=== PATIENT | female | born 1970 | race Caucasian/White ===

== ENCOUNTER → 2017-06-13 10:21 | Outpatient (CLI) | payer OTHER, SELFPAY ==
[2017-06-13 14:33] LABS: Basophils # 0.1 K/mm3 (0-0.2); Basophils % 1.3 % (0.1-2.0); Eosinophils # 0.2 K/mm3 (0.0-0.4); Eosinophils % 3.8 % (0.1-12.0); Hematocrit 43.3 % (37.0-47.0); Hemoglobin 14.1 g/dL (12.2-16.2); Lymphocytes # 1.5 K/mm3 (0.7-4.5); Lymphocytes % 35.4 K/mm3 (10-50); Mean Corpuscular HGB Conc 32.7 g/dL (31.8-35.4); Mean Corpuscular Hemoglobin 30.6 pg (27.0-31.2); Mean Corpuscular Volume 93.8 fl (81-99); Mean Platelet Volume 9.6 fl (7.4-10.4); Monocytes # 0.2 K/mm3 (0.1-1.0); Monocytes % 5.6 % (1.7-9.3); Neutrophils # 2.3 K/mm3 (1.8-7.8); Neutrophils % 53.8 % (37.0-80.0); Platelet Count 250 K/mm3 (142-424); Red Blood Count 4.62 M/mm3 (4.20-5.40); White Blood Count 4.3 K/mm3 (4.8-10.8)
[2017-06-13 14:52] LABS: Alanine Aminotransferase 31 U/L (12-78); Albumin Level 3.3 gm/dL (3.4-5.0); Albumin/Globulin Ratio 0.9 (1.1-1.8); Alkaline Phosphatase 56 U/L (46-116); Anion Gap 11.2 mEq/L (5-15); Aspartate Amino Transferase 21 U/L (15-37); Bilirubin,Total 0.2 mg/dL (0.2-1.0); Blood Urea Nitrogen 16 mg/dL (7-18); Calcium 8.6 mg/dL (8.5-10.1); Carbon Dioxide 29 mmol/L (21.0-32.0); Chloride 104 mmol/L (98-107); Chol/HDL Ratio 2.6 (1-3.5); Cholesterol 198 mg/dL (140-200); Creatinine,Serum 0.72 mg/dL (0.55-1.02); Estimated Glomerular Filt Rate 87 ml/min (>60); GFR (African American) 106 ML/MIN (>60); Globulin 3.6 gm/dl (1.3-3.2); Glucose 116 mg/dL (74-106); HDL Cholesterol 77 mg/dL (29-89); LDL Cholesterol 93 mg/dL (0-130); Potassium 4.2 mmoL/L (3.5-5.1); Sodium 140 mmol/L (136-145); Thyroid Stimulating Hormone 0.84 uIU/ml (0.358-3.740); Total Protein,Serum 6.9 gm/dL (6.4-8.2); Triglycerides 141 mg/dL (30-200); VLDL Cholesterol 28 mg/dL (0-40)
[2017-06-13 16:56] LABS: Hemoglobin A1C 5.1 % (0.0-7.0)
[2017-06-14 18:32] LABS: Vitamin D 25 Hydroxy 39.8 ng/mL (30.0-100.0)
== END ==
PROVIDERS: Visit Provider Nurse Practitioner Family
DX: R53.83 Other fatigue (principal); Z79.899 Other long term (current) drug therapy
CPT/HCPCS: 80053; 80061; 82652; 83036; 84439; 84443; 85025

== ENCOUNTER → 2017-06-27 17:14 | Outpatient (CLI) | payer OTHER, SELFPAY ==
--- NOTE | 2017-06-27 17:16 | XR_ITS ---
XR hip LT 2-3V w/pelvis HISTORY: ITS.REASON: left hip pain ORDERING PHYSICIAN: Angélica Grady PATIENT AGE: 46 years COMPARISON: None FINDINGS: No fracture or dislocation is evident. No significant degenerative change. No lytic or blastic change. Unremarkable soft tissues. A clip is present in the left iliac fossa region a rounded sclerotic focus overlies the left aspect of the sacrum and may be due to bone island IMPRESSION: Negative left hip
== END ==
PROVIDERS: PCP Emergency Medicine; Visit Provider Nurse Practitioner Family
DX: M25.552 Pain in left hip (principal)
CPT/HCPCS: 73502

== ENCOUNTER 2017-08-28 16:00 | Outpatient (RCR) | payer OTHER, SELFPAY | END 2017-08-28 16:01 | disposition home or self-care (01) | LOC: PT 16:00 | PROVIDERS: Family Provider Emergency Medicine; PCP Emergency Medicine; Visit Provider Orthopaedic Surgery | DX: M70.62 Trochanteric bursitis, left hip | CPT/HCPCS: 97010; 97012; 97014; 97033; 97035; 97110; 97163; G0283 ==

== ENCOUNTER → 2017-11-11 07:27 | Outpatient (CLI) | payer OTHER, SELFPAY ==
[2017-11-11 08:16] LABS: Hemoglobin A1C 5.7 % (0.0-7.0)
== END ==
PROVIDERS: Visit Provider Nurse Practitioner Family
DX: R60.9 Edema, unspecified (principal); R53.83 Other fatigue
CPT/HCPCS: 36415; 83036; 83880

== ENCOUNTER → 2017-11-17 13:11 | Outpatient (CLI) | payer OTHER, SELFPAY ==
[2017-11-17 15:38] LABS: Anion Gap 12.3 mEq/L (5-15); Blood Urea Nitrogen 19 mg/dL (7-18); Calcium 8.2 mg/dL (8.5-10.1); Carbon Dioxide 26 mmol/L (21.0-32.0); Chloride 106 mmol/L (98-107); Creatinine,Serum 1.01 mg/dL (0.55-1.02); Estimated Glomerular Filt Rate 59 ml/min (>60); GFR (African American) 71 ML/MIN (>60); Glucose 128 mg/dL (74-106); Potassium 4.3 mmoL/L (3.5-5.1); Sodium 140 mmol/L (136-145)
== END ==
PROVIDERS: Visit Provider Urology
DX: R06.09 Other forms of dyspnea (principal); R60.1 Generalized edema; I10 Essential (primary) hypertension
CPT/HCPCS: 36415; 80048; 83880

== ENCOUNTER → 2017-11-19 13:39 | Outpatient (CLI) | payer OTHER, SELFPAY ==
--- NOTE | 2017-11-19 13:40 | CA_ITS ---
PROCEDURE: 2-D M-mode and color Doppler study INDICATIONS FOR THE TEST: Chest painX COPD Heart Murmur Tobacco Smoking Palpitations FatigueX Syncope Edema HypertensionXDiabetes Mellitus Rheumatic Fever SOB DOEXObesityXHyperlipidemia Family History HD Additional History PATIENT INFORMATION HEIGHT:59 WEIGHT:187 GENDER: Female B/P:142/87 2-D/M-MODE INTERPRETATION: 2-D MEASUREMENTS OBSERVED VALUES IN CMS Right Ventricular Dimension (RVDd) 2.5 Interventricular Septum (Thickness)(IVsd) .8 Left Ventricular Internal Dimensions(LVIDd) 4.5 Left Ventricular Posterior Wall (Thickness)(LVPWd) .8 Aortic Root 2.7 Aortic Cusp Separation 1.5 Left Atrial Dimensions (LAD) 3.2 2D 1. Left atrium is normal size, left ventricle is normal size, there is mild qualitative concentric left ventricular hypertrophy, visually estimated ejection fraction of 55% with no obvious regional wall motion abnormality. 2. The right atrium and right ventricle are normal size and contractility. 3. The aortic valve is minimally thickened and fibrosed. 4. The mitral and tricuspid valvular grossly normal. 5. The pulmonic valve is poorly visualized. 6. No significant pericardial effusion noted. DOPPLER INTERROGATION: Doppler interrogation of the aortic, mitral and tricuspid valvular presence of mild mitral and tricuspid regurgitation, tricuspid regurgitant jet velocity is insufficient for calculation of the right ventricular systolic pressure, grade 1 diastolic dysfunction seen with tissue Doppler evidence of raised left atrial pressure. CONCLUSION: 1. Normal left ventricular size, mild concentric left ventricular hypertrophy, visually estimated ejection fraction 55% with no obvious regional wall motion abnormality, grade 1 diastolic dysfunction seen with tissue Doppler evidence of raised left atrial pressure. 2. Mild mitral and tricuspid regurgitation 3. No significant pericardial effusion noted.
== END ==
PROVIDERS: Family Provider Emergency Medicine; PCP Emergency Medicine; Visit Provider Internal Medicine Cardiovascular Disease
DX: R06.00 Dyspnea, unspecified (principal); R60.9 Edema, unspecified
CPT/HCPCS: 93306

== ENCOUNTER → 2017-12-02 16:49 | Outpatient (CLI) | payer OTHER, SELFPAY | PROVIDERS: PCP Emergency Medicine; Visit Provider Internal Medicine Cardiovascular Disease | DX: R07.9 Chest pain, unspecified (principal); R00.0 Tachycardia, unspecified; R06.00 Dyspnea, unspecified; R06.83 Snoring; R40.0 Somnolence; R60.9 Edema, unspecified | CPT/HCPCS: 95806 ==

== ENCOUNTER → 2017-12-04 07:22 | Outpatient (CLI) | payer OTHER, SELFPAY ==
--- NOTE | 2017-12-04 07:23 | CT_ITS ---
CT heart w calcium score INDICATION: Chest pain and shortness of air ITS.REASON: . ORDERING PHYSICIAN: Ronan Hunt MD PATIENT AGE: 47 years COMPARISON: None TECHNIQUE: Axial images are obtained without contrast. Sagittal and coronal reformatted images are reviewed as well. All CT scans at the facility use one or more dose reduction, viz: automated exposure control, ma/kV adjustment per patient size (including targeted exams where dose is matched to indication, i.e. head), or iterative reconstruction technique. FINDINGS: Coronary artery calcium score 40 indicating mild plaque burden with moderate cardiovascular disease risk . Incidental note made of patchy groundglass density in the left upper lobe centrally and in the superior segment left lower lobe nonspecific. Calcified granuloma is present in the right middle lobe. IMPRESSION: Coronary artery calcium score 4 indicating mild plaque burden with moderate cardiovascular disease risk
--- NOTE | 2017-12-04 07:23 | NM_ITS ---
SPECT MYOCARDIAL PERFUSION SCAN, REST AND STRESS: EXERCISE STRESS: [facility] REVIEW QGS EF AND WALL MOTION EVALUATION: QPS - PERFUSION EVALUATION: HISTORY: Chest pain PROCEDURE: Rest imaging performed after administration of10.11 millicuries Tc MIBI. Dose administered at7:35 a.m., with imaging thereafter. Stress imaging was then performed following6 minutes of exercise stress. The patient achieved a heart [id number] with projected heart rate of147 . Resting BP145/73 with stress 195/70. At maximum exercise stress,32.9 millicuries Tc MIBI administered at8:45 a.m. with [id number] minutes thereafter. FINDINGS: Perfusion Evaluation: The single slice spect images as well as the [facility] bull's-eye data summary were reviewed. Wall Motion and Ejection Fraction Evaluation: Gated SPECT review and analysis used to evaluate these features. There is a 71 % left ventricular ejection fraction. There seems to be good wall motion Patient exercised 6 minutes and experienced [address] segment depression. Stress images reveal decreased activity throughout the anterior wall with slight improvement with stress. Gated images calculated ejection fraction of 71% with normal wall motion IMPRESSION: Abnormal high risk Myoview with anterior defect suggesting some possible degree of breast attenuation mixed with ischemia. Hyperdynamic ejection fraction with hyperdynamic wall motion. Clinical correlation advised
--- NOTE | 2017-12-04 09:39 | HMH.ITSHM ---
premarin furosemide bupropion losartan spironalactone
== END ==
PROVIDERS: Family Provider Emergency Medicine; PCP Emergency Medicine; Visit Provider Internal Medicine Cardiovascular Disease
DX: R06.00 Dyspnea, unspecified (principal); I10 Essential (primary) hypertension; I51.9 Heart disease, unspecified; R00.0 Tachycardia, unspecified; R07.9 Chest pain, unspecified; R60.9 Edema, unspecified
CPT/HCPCS: 75571; 78452; 93017; A9502

== ENCOUNTER → 2017-12-09 07:58 | Outpatient (CLI) | payer OTHER, SELFPAY ==
[2017-12-09 08:52] LABS: Anion Gap 12.7 mEq/L (5-15); Blood Urea Nitrogen 21 mg/dL (7-18); Calcium 8.5 mg/dL (8.5-10.1); Carbon Dioxide 26 mmol/L (21.0-32.0); Chloride 109 mmol/L (98-107); Creatinine,Serum 0.99 mg/dL (0.55-1.02); Estimated Glomerular Filt Rate 60 ml/min (>60); GFR (African American) 73 ML/MIN (>60); Glucose 100 mg/dL (74-106); Potassium 4.7 mmoL/L (3.5-5.1); Sodium 143 mmol/L (136-145)
== END ==
PROVIDERS: Family Provider Emergency Medicine; PCP Emergency Medicine; Visit Provider Internal Medicine Cardiovascular Disease
DX: I10 Essential (primary) hypertension (principal); I51.9 Heart disease, unspecified; R00.0 Tachycardia, unspecified; R06.00 Dyspnea, unspecified; R07.9 Chest pain, unspecified; R60.9 Edema, unspecified
CPT/HCPCS: 36415; 80048

== ENCOUNTER → 2017-12-30 09:44 | Outpatient (CLI) | payer OTHER, SELFPAY ==
[2017-12-30 11:23] LABS: Anion Gap 12.4 mEq/L (5-15); Blood Urea Nitrogen 24 mg/dL (7-18); Calcium 8.7 mg/dL (8.5-10.1); Carbon Dioxide 27 mmol/L (21.0-32.0); Chloride 104 mmol/L (98-107); Creatinine,Serum 1.03 mg/dL (0.55-1.02); Estimated Glomerular Filt Rate 57 ml/min (>60); GFR (African American) 69 ML/MIN (>60); Glucose 103 mg/dL (74-106); Potassium 4.4 mmoL/L (3.5-5.1); Sodium 139 mmol/L (136-145)
== END ==
PROVIDERS: Family Provider Emergency Medicine; PCP Emergency Medicine; Visit Provider Internal Medicine Cardiovascular Disease
DX: I10 Essential (primary) hypertension (principal); I11.9 Hypertensive heart disease without heart failure; I51.9 Heart disease, unspecified
CPT/HCPCS: 36415; 80048

== ENCOUNTER → 2018-01-12 14:28 | Outpatient (CLI) | payer OTHER, SELFPAY ==
--- NOTE | 2018-01-12 14:35 | XR_ITS ---
XR foot wt bearing RT 3V HISTORY: Bilateral foot pain ITS.REASON: Pain ORDERING PHYSICIAN: Yana Barbosa DPM PATIENT AGE: 47 years COMPARISON: None FINDINGS: No fracture or dislocation. No lytic or blastic change. There is normal mineralization.. The joint spaces are well-preserved. No significant degenerative/arthritic changes. No erosive changes evident. There is a small calcaneal spur at 6 mm. No bony erosive changes evident at this area There is normal alignment. There is flexion deformity of the second toe. IMPRESSION: 1. No acute finding. 2. Flexion deformity second toe 3. Small calcaneal spur without erosive change
--- NOTE | 2018-01-12 14:35 | XR_ITS ---
XR foot wt bearing LT 3V HISTORY: Bilateral foot pain ITS.REASON: Pain ORDERING PHYSICIAN: Yana Barbosa DPM PATIENT AGE: 47 years COMPARISON: None FINDINGS: No fracture or dislocation. No lytic or blastic change. There is normal mineralization.. The joint spaces are well-preserved. No significant degenerative/arthritic changes. No erosive changes evident. There is a small calcaneal spur. The spurs somewhat angled superiorly with a lucency at its base without evidence of erosive change. IMPRESSION: Small calcaneal spur with lucency at its base which could be due to an old fracture with a spur somewhat angled cephalad
== END ==
PROVIDERS: Family Provider Emergency Medicine; PCP Emergency Medicine; Visit Provider Podiatrist
DX: M79.671 Pain in right foot (principal); M79.672 Pain in left foot
CPT/HCPCS: 73630

== ENCOUNTER → 2018-01-23 09:43 | Outpatient (CLI) | payer OTHER, SELFPAY ==
--- NOTE | 2018-01-23 09:47 | MM_ITS ---
MM Dig screening mamm BI w/CAD ORDERING PHYSICIAN : Arben Rao MD PATIENT AGE: 47 years GENDER: Female COMPARISON: . October [id number], 2014, December 2013, 2012 INDICATION: ITS.REASON: screening. Patient takes Premarin. No new complaints Previous percutaneous needle biopsy left breast Family history. Maternal aunt with breast cancer age 50 TECHNIQUE: Standard CC and MLO images were obtained. R2 CAD reviewed. FINDINGS: Fairly low-density breast bilaterally with no suspicious areas. No dominant mass nor suspicious calcifications. CAD computer review highlights no areas of concern either. RIGHT BREAST: . No significant new findings. LEFT BREAST:No new findings of significant concern Small metallic clip at the deep left breast from previous percutaneous.Biopsy.-Small stable area of density adjacent to this clip at the central left breast unchanged since 2013 . Today's cc view does not include as much of the deep breast as previous studies but the available left cc view is unremarkable. With MLO view unchanged IMPRESSION: ----- Stable bilateral mammogram No significant new findings. . Bilateral follow-up in one year recommended BI-RADS Category: 2 Benign Finding(s) RECOMMENDED FOLLOW-UP: 1YR 1 YEAR FOLLOW-UP (A letter has been sent to the patient regarding results of the study.)
== END ==
PROVIDERS: PCP Emergency Medicine; Visit Provider Emergency Medicine
DX: Z12.31 Encounter for screening mammogram for malignant neoplasm of breast (principal)
CPT/HCPCS: 77067

== ENCOUNTER → 2018-02-09 19:55 | Outpatient (CLI) | payer OTHER, SELFPAY | PROVIDERS: PCP Emergency Medicine; Visit Provider Nurse Practitioner Family | DX: G47.33 Obstructive sleep apnea (adult) (pediatric) (principal) | CPT/HCPCS: 95811 ==

== ENCOUNTER → 2018-06-19 09:12 | Outpatient (CLI) | payer OTHER, SELFPAY ==
--- NOTE | 2018-06-19 09:16 | CA_ITS ---
PROCEDURE: 2-D M-mode and color Doppler study INDICATIONS FOR THE TEST: Chest pain+ COPD Heart Murmur Tobacco Smoking Palpitations Fatigue Syncope Edema+ Hypertension+Diabetes Mellitus Rheumatic Fever SOB+HANSEN Obesity Hyperlipidemia Family History HD Additional History CHF PATIENT INFORMATION HEIGHT: 60 WEIGHT: 181 GENDER: Female B/P: 132/75 2-D/M-MODE INTERPRETATION: 2-D MEASUREMENTS OBSERVED VALUES IN CMS Right Ventricular Dimension (RVDd) 2.0 Interventricular Septum (Thickness)(IVsd) 1.1 Left Ventricular Internal Dimensions(LVIDd) 3.9 Left Ventricular Posterior Wall (Thickness)(LVPWd) 1.0 Aortic Root 2.2 Aortic Cusp Separation 2.0 Left Atrial Dimensions (LAD) 3.3 2D 1. Left atrium is qualitatively mildly enlarged, left ventricle is normal size, left ventricle wall thickness is upper limit of normal, there is preserved left ventricular systolic function, visually estimated ejection fraction of 55-60% with no regional wall motion abnormality. 2. The right atrium and right ventricle are normal size and contractility. 3. The aortic valve is minimally thickened and fibrosed. 4. The mitral and tricuspid valvular grossly normal. 5. The pulmonic valve is poorly present. 6. No significant pericardial effusion noted. DOPPLER INTERROGATION: Doppler interrogation of the aortic, mitral and tricuspid valvular presence of mild mitral and tricuspid regurgitation, calculated right ventricular systolic pressure is 32 mmHg, grade 1 diastolic dysfunction seen with tissue Doppler evidence of raised left atrial pressure, inferior vena cava is not well visualized. CONCLUSION: 1. Mildly enlarged left atrium, normal left ventricular size, visually estimated ejection fraction 55% with no regional wall motion abnormality, grade 1 diastolic dysfunction seen with tissue Doppler evidence of raised left atrial pressure. 2. Mild mitral and tricuspid regurgitation, calculated right ventricular systolic pressure is 32 mmHg, inferior vena cava is not well visualized. 3. No significant pericardial effusion noted.
== END ==
PROVIDERS: PCP Emergency Medicine; Visit Provider Internal Medicine Cardiovascular Disease
DX: I11.9 Hypertensive heart disease without heart failure (principal); I51.89 Other ill-defined heart diseases; R06.00 Dyspnea, unspecified; R06.83 Snoring; R40.0 Somnolence; R60.9 Edema, unspecified
CPT/HCPCS: 93306

== ENCOUNTER → 2018-06-22 11:33 | Outpatient (CLI) | payer OTHER, SELFPAY ==
[2018-06-22 14:53] LABS: Anion Gap 15.2 mEq/L (5-15); Blood Urea Nitrogen 25 mg/dL (7-18); Calcium 9.5 mg/dL (8.5-10.1); Carbon Dioxide 29 mmol/L (21.0-32.0); Chloride 99 mmol/L (98-107); Creatinine,Serum 0.98 mg/dL (0.55-1.02); Estimated Glomerular Filt Rate 61 ml/min (>60); GFR (African American) 74 ML/MIN (>60); Glucose 94 mg/dL (74-106); Potassium 4.2 mmoL/L (3.5-5.1); Sodium 139 mmol/L (136-145)
== END ==
PROVIDERS: Visit Provider Internal Medicine Cardiovascular Disease
DX: I10 Essential (primary) hypertension (principal); I11.9 Hypertensive heart disease without heart failure; R06.00 Dyspnea, unspecified; R06.83 Snoring; R40.0 Somnolence; R60.9 Edema, unspecified
CPT/HCPCS: 36415; 80048

== ENCOUNTER → 2018-07-10 08:51 | Outpatient (CLI) | payer MEDICAID, SELFPAY ==
[2018-07-10 09:19] LABS: Anion Gap 12.5 mEq/L (5-15); Blood Urea Nitrogen 21 mg/dL (7-18); Calcium 8.8 mg/dL (8.5-10.1); Carbon Dioxide 26 mmol/L (21.0-32.0); Chloride 107 mmol/L (98-107); Creatinine,Serum 0.91 mg/dL (0.55-1.02); Estimated Glomerular Filt Rate 66 ml/min (>60); GFR (African American) 80 ML/MIN (>60); Glucose 99 mg/dL (74-106); Potassium 4.5 mmoL/L (3.5-5.1); Sodium 141 mmol/L (136-145)
== END ==
PROVIDERS: Visit Provider Internal Medicine Cardiovascular Disease
DX: R06.02 Shortness of breath (principal); R60.9 Edema, unspecified; I11.9 Hypertensive heart disease without heart failure; I51.89 Other ill-defined heart diseases
CPT/HCPCS: 36415; 80048; 83880

== ENCOUNTER → 2019-04-16 10:19 | Outpatient (CLI) | payer OTHER, SELFPAY ==
[2019-04-16 13:39] LABS: Alanine Aminotransferase 22 U/L (12-78); Albumin Level 3.4 gm/dL (3.4-5.0); Alkaline Phosphatase 73 U/L (46-116); Anion Gap 12.4 mEq/L (5-15); Aspartate Amino Transferase 14 U/L (15-37); Bilirubin,Direct 0.1 mg/dL (0.0-0.2); Bilirubin,Indirect 0.4 mg/dL (0.0-0.9); Bilirubin,Total 0.5 mg/dL (0.2-1.0); Blood Urea Nitrogen 17 mg/dL (7-18); Calcium 9.3 mg/dL (8.5-10.1); Carbon Dioxide 28 mmol/L (21.0-32.0); Chloride 102 mmol/L (98-107); Chol/HDL Ratio 4.1 (1-3.5); Cholesterol 212 mg/dL (140-200); Creatinine,Serum 1.02 mg/dL (0.55-1.02); Estimated Glomerular Filt Rate 58 ml/min (>60); GFR (African American) 70 ML/MIN (>60); Glucose 93 mg/dL (74-106); HDL Cholesterol 52 mg/dL (29-89); LDL Cholesterol 128 mg/dL (0-130); Potassium 4.4 mmoL/L (3.5-5.1); Sodium 138 mmol/L (136-145); Total Protein,Serum 6.8 gm/dL (6.4-8.2); Triglycerides 158 mg/dL (30-200); VLDL Cholesterol 32 mg/dL (0-40)
== END ==
PROVIDERS: Visit Provider Physician Assistant
DX: I10 Essential (primary) hypertension (principal); I11.9 Hypertensive heart disease without heart failure; I51.89 Other ill-defined heart diseases; R06.00 Dyspnea, unspecified
CPT/HCPCS: 36415; 80048; 80061; 80076; 83880

== ENCOUNTER → 2019-12-17 11:20 | Outpatient (CLI) | payer OTHER, SELFPAY ==
[2019-12-17 13:47] LABS: Anion Gap 8.3 mEq/L (5-15); Blood Urea Nitrogen 19 mg/dl (7-17); Calcium 9.5 mg/dl (8.4-10.2); Carbon Dioxide 30 mmol/L (22.0-30.0); Chloride 105 mmol/L (98-107); Estimated Glomerular Filt Rate 67 ml/min (>60); GFR (African American) 81 ML/MIN (>60); Glucose 96 mg/dl (74-100); Potassium 4.3 mmoL/L (3.5-5.1); Sodium 139 mmol/L (136-145)
[2019-12-17 13:53] LABS: NT Pro Brain Natriuretic Pep. 62.4 pg/mL (0-125)
== END ==
PROVIDERS: Visit Provider Internal Medicine Cardiovascular Disease
DX: I10 Essential (primary) hypertension (principal); I11.9 Hypertensive heart disease without heart failure; I51.9 Heart disease, unspecified; R06.00 Dyspnea, unspecified; R60.9 Edema, unspecified
CPT/HCPCS: 36415; 80048; 83880

== ENCOUNTER → 2020-05-23 14:44 | Outpatient (CLI) | payer OTHER, SELFPAY ==
--- NOTE | 2020-05-23 14:45 | MR_ITS ---
PROCEDURE: MR HEAD/BRAIN WO CON CLINICAL INDICATION: memory loss Forgetfulness, headache, and dizziness since COVID [id number] ago. No prior. COMPARISON: No exams were available for comparison TECHNIQUE: Routine multiplanar multi echo sequences are performed without gadolinium enhancement. FINDINGS: No midline shift, mass effect, intracranial hemorrhage, hydrocephalus, or acute infarction is evident. There are few scattered T2 white matter hyperintensities with some increased T2 signal in the periventricular region along the anterior horns and occipital horns of the lateral ventricles. The pituitary, corpus callosum, optic chiasm, and craniocervical junction have an unremarkable appearance. There is degenerative disc disease with bulging disc/disc osteophyte complex at C3-C4 causing some canal stenosis and may be better evaluated with MRI of the cervical spine if clinically warranted. This is seen only on the sagittal images. The cerebellopontine angles, cerebellum, and brainstem have an unremarkable appearance.. No mastoid effusion or sinus air-fluid level. IMPRESSION: 1. No acute intracranial findings. 2. There are few scattered T2 white matter hyperintensities. Differential diagnosis includes ischemic gliotic change from microvascular disease, migraine headache, and demyelinating process. Dictated by: Galileo Mondragon MD 05/25/2020 09:46 Galileo Mondragon MD in [place] 05/25/2020 09:46
== END ==
PROVIDERS: PCP Emergency Medicine; Visit Provider Emergency Medicine
DX: R41.3 Other amnesia (principal)
CPT/HCPCS: 70551

== ENCOUNTER → 2020-06-19 12:18 | Outpatient (CLI) | payer OTHER, SELFPAY ==
[2020-06-19 13:15] VITALS: PULSE 82; PULSE 86
== END ==
PROVIDERS: PCP Emergency Medicine; Visit Provider Internal Medicine Pulmonary Disease
DX: R06.09 Other forms of dyspnea (principal)
CPT/HCPCS: 94060; 94640; 94726; 94729

== ENCOUNTER → 2020-06-22 10:25 | Outpatient (CLI) | payer OTHER, SELFPAY ==
[2020-06-22 10:59] LABS: Basophils # 0.1 K/mm3 (0-0.2); Basophils % 0.8 % (0.1-2.0); Eosinophils # 0.1 K/mm3 (0.0-0.4); Eosinophils % 2.1 % (0.1-12.0); Hematocrit 42.3 % (37.0-47.0); Hemoglobin 14.5 g/dL (12.2-16.2); Lymphocytes # 2.2 K/mm3 (0.7-4.5); Lymphocytes % 38.3 % (10-50); Mean Corpuscular HGB Conc 34.3 g/dL (31.8-35.4); Mean Corpuscular Hemoglobin 32.3 pg (27.0-31.2); Mean Corpuscular Volume 94.1 fl (81-99); Mean Platelet Volume 9.2 fl (7.4-10.4); Monocytes # 0.3 K/mm3 (0.1-1.0); Monocytes % 4.6 % (1.7-9.3); Neutrophils # 3.1 K/mm3 (1.8-7.8); Neutrophils % 54.3 % (37.0-80.0); Platelet Count 243 K/mm3 (142-424); Red Cell Distribution Width 13.2 % (11.5-17.5); White Blood Count 5.7 K/mm3 (4.8-10.8)
[2020-06-22 11:24] LABS: Erythrocyte Sedimentation Rate 22 mm/hr (0-20)
[2020-06-22 12:29] LABS: Vitamin B12 267 pg/mL (239-931)
[2020-06-22 12:39] LABS: Folate 7.67 ng/mL
[2020-06-24 12:14] LABS: Antinuclear Antibodies (ANA) NEGATIVE
== END ==
PROVIDERS: Visit Provider Nurse Practitioner Family
DX: R41.3 Other amnesia (principal)
CPT/HCPCS: 36415; 82607; 82746; 85025; 85651; 86038

== ENCOUNTER → 2021-01-25 09:59 | Outpatient (CLI) | payer OTHER, SELFPAY ==
[2021-01-25 10:19] LABS: Basophils # 0.1 K/mm3 (0-0.2); Basophils % 1.7 % (0.1-2.0); Eosinophils # 0.1 K/mm3 (0.0-0.4); Eosinophils % 2.1 % (0.1-12.0); Hematocrit 42.4 % (37.0-47.0); Hemoglobin 14.5 g/dL (12.2-16.2); Lymphocytes # 2.2 K/mm3 (0.7-4.5); Lymphocytes % 36.2 % (10-50); Mean Corpuscular HGB Conc 34.1 g/dL (31.8-35.4); Mean Corpuscular Hemoglobin 32.9 pg (27.0-31.2); Mean Corpuscular Volume 96.3 fl (81-99); Mean Platelet Volume 9.3 fl (7.4-10.4); Monocytes # 0.3 K/mm3 (0.1-1.0); Monocytes % 5.8 % (1.7-9.3); Neutrophils # 3.2 K/mm3 (1.8-7.8); Neutrophils % 54.3 % (37.0-80.0); Platelet Count 295 K/mm3 (142-424); Red Cell Distribution Width 13.1 % (11.5-17.5)
[2021-01-25 12:11] LABS: Vitamin B12 295 pg/mL (239-931)
[2021-01-26 08:17] LABS: Homocyst(e)ine 14.5 umol/L (0.0-14.5)
[2021-01-29 08:09] LABS: D001-IgE D pteronyssinus <0.10 kU/L (Class 0); D002-IgE D farinae <0.10 kU/L (Class 0); E001-IgE Cat Dander <0.10 kU/L (Class 0); E005-IgE Dog Dander <0.10 kU/L (Class 0); E072-IgE Mouse Urine <0.10 kU/L (Class 0); G002-IgE Bermuda Grass <0.10 kU/L (Class 0); G006-IgE Timothy Grass <0.10 kU/L (Class 0); I006-IgE Cockroach, German <0.10 kU/L (Class 0); Immunoglobulin E, Total 30 IU/mL (6-495); M001-IgE Penicillium chrysogen <0.10 kU/L (Class 0); M002-IgE Cladosporium herbarum <0.10 kU/L (Class 0); M003-IgE Aspergillus fumigatus <0.10 kU/L (Class 0); M006-IgE Alternaria alternata <0.10 kU/L (Class 0); T001-IgE Maple/Box Elder <0.10 kU/L (Class 0); T003-IgE Common Silver Birch <0.10 kU/L (Class 0); T006-IgE Cedar, Mountain <0.10 kU/L (Class 0); T007-IgE Oak, White <0.10 kU/L (Class 0); T008-IgE Elm, American <0.10 kU/L (Class 0); T010-IgE Walnut <0.10 kU/L (Class 0); T011-IgE Maple Leaf Sycamore <0.10 kU/L (Class 0); T014-IgE Cottonwood <0.10 kU/L (Class 0); T015-IgE Ash, White <0.10 kU/L (Class 0); T022-IgE Pecan, Hickory <0.10 kU/L (Class 0); T070-IgE White Mulberry <0.10 kU/L (Class 0); W001-IgE Ragweed, Short 0.83 kU/L (Class II); W011-IgE Thistle, Russian <0.10 kU/L (Class 0); W014-IgE Pigweed, Common <0.10 kU/L (Class 0); W018-IgE Sheep Sorrel <0.10 kU/L (Class 0)
[2021-01-30 05:43] LABS: Methylmalonic Acid 139 nmol/L (0-378)
== END ==
PROVIDERS: Internal Medicine Pulmonary Disease; PCP Nurse Practitioner Family; Visit Provider Nurse Practitioner Family
DX: G93.40 Encephalopathy, unspecified (principal); R41.3 Other amnesia; R41.9 Unspecified symptoms and signs involving cognitive functions and awareness; J45.909 Unspecified asthma, uncomplicated
CPT/HCPCS: 82131; 82607; 82785; 83090; 85025; 86003

== ENCOUNTER → 2021-02-19 12:56 | Outpatient (CLI) | payer OTHER, SELFPAY | PROVIDERS: PCP Emergency Medicine; Visit Provider Nurse Practitioner Family | DX: R41.3 Other amnesia (principal); R41.9 Unspecified symptoms and signs involving cognitive functions and awareness; G93.40 Encephalopathy, unspecified | CPT/HCPCS: 94762; 95816 ==

== ENCOUNTER 2021-05-13 12:12 | Emergency (ER) | payer OTHER, SELFPAY ==
--- NOTE | 2021-05-13 13:50 | HMH.EDUTC ---
[facility] [place] Disposition Clinical Impression: Exposure to COVID-19 virus, Viral syndrome Sinusitis Qualifiers: Sinusitis location: unspecified location Chronicity: acute Recurrence: non-recurrent Qualified Code(s): J01.90 - Acute sinusitis, unspecified Acute bronchitis Qualifiers: Bronchitis organism: unspecified organism Qualified Code(s): J20.9 - Acute bronchitis, unspecified Disposition: Home, Self-Care Condition on Discharge: Good Instructions: DI for Sinusitis Additional Instructions: Drink plenty of fluids. Take tylenol or ibuprofen for pain or fever. Take the medications as directed. Follow up with your regular doctor. GO TO THE ER FOR ANY WORSENING SYMPTOMS Quarantine until you know the results of your covid-19 test. Notify your school or workplace of your results and follow their instructions regarding return to work/school. Prescriptions: Benzonatate [Benzonatate 100mg cap] 100 mg PO TIDP PRN #30 cap PRN Reason: Cough Transmission Status: Received by [id number] methylPREDNISolone [Medrol] 4 mg PO DIRECTED 6 Days #21 packet Transmission Status: Received by [id number] RX: Azithromycin [Z-Tesfaye 250mg Tab*] 250 mg PO UD DOSE PK #6 tab Transmission Status: Received by [id number] Referrals: Arben Rao MD [Primary Care Provider] - Time of Disposition: 14:04 Medical Decision Making - Medical Records Medical records reviewed: No: I reviewed the patient's medical records. - Alex Inquiry Pt receiving controlled substance: No Vital Signs: 05/13/21 13:53 Temperature 98.6 F Temperature Source Oral Pulse Rate [Left] 78 Respiratory Rate 18 Blood Pressure [Right Arm] 124/76 Blood Pressure Mean [Right Arm] 92 02 Sat by Pulse Oximetry 96 - Lab Data Lab results reviewed: Yes: I reviewed the patient's lab results. Orders (Tests/Meds): ORDERS Category Date Time Status Covid-19 Nasal PCR ([facility]) Routine Lab 05/13/21 13:58 Ordered [facility] [place] HPI - General Stated complaint: possible sinus infection Time Seen by Provider: 05/13/21 13:50 - History of Present Illness Provider Complaint: She states that she for the past 2 days she has been having sinus congestion, low grade fever, chills, cough, and chest congestion. - Related Data Home Medications Medication Instructions Recorded Confirmed cetirizine 10 mg tablet 10 mg PO DAILY tab 04/16/19 04/23/21 estradiol 1 mg tablet 1 mg PO DAILY tab 12/08/19 04/23/21 aripiprazole 10 mg tablet 10 mg PO DAILY 04/03/21 04/23/21 methylcellulose (with sugar) oral 1 tbsp PO DAILY 04/03/21 04/23/21 powder metoclopramide HCl 10 mg 10 mg PO Q6H 04/03/21 04/23/21 disintegrating tablet omeprazole 40 mg capsule,delayed 40 mg PO BID 04/03/21 04/23/21 release polyethylene glycol 3350 17 17 g PO DAILY 04/03/21 04/23/21 gram/dose oral powder Previous Rx's Medication Instructions Recorded aspirin 81 mg tablet,delayed See Rx Instructions .ROUTE 06/26/20 release .COMPLEX #90 tab spironolactone 100 mg tablet See Rx Instructions .ROUTE 02/28/21 .COMPLEX #90 tab bumetanide 2 mg tablet See Rx Instructions .ROUTE 03/01/21 .COMPLEX #60 tab albuterol sulfate 90 mcg/actuation 1 puff INHALATION Q4-6H PRN 90 04/03/21 aerosol inhaler Days #8.5 g budesonide-formoterol HFA 160 2 puff INHALATION BID 90 Days 04/03/21 mcg-4.5 mcg/actuation aerosol #10.2 g inhaler ipratropium 0.5 mg-albuterol 3 mg 3 ml INHALATION QID PRN 90 Days 04/03/21 (2.5 mg base)/3 mL nebulization #270 ml soln bisoprolol fumarate 5 mg tablet See Rx Instructions .ROUTE 04/04/21 .COMPLEX #30 tab phentermine 37.5 mg capsule 37.5 mg PO DAILY #30 cap 04/23/21 Azithromycin [Z-Tesfaye 250mg Tab*] 250 mg PO UD DOSE PK #6 tab 05/13/21 Benzonatate [Benzonatate 100mg 100 mg PO TIDP PRN #30 cap 05/13/21 cap] methylPREDNISolone [Medrol] 4 mg PO DIRECTED 6 Days #21 05/13/21 packet Allergies Allergy/AdvReac Type Se
[2021-05-13 13:53] VITALS: BP 124/76; PULSE 78; RESP 18; TEMP 37; O2SAT 96; BMI 36.7
[2021-05-13 14:25] VITALS: BP 124/76; PULSE 78; RESP 18; TEMP 37
== END 2021-05-13 14:28 | disposition home or self-care (01) ==
PROVIDERS: Emergency Provider Nurse Practitioner Family; PCP Emergency Medicine
DX: J01.00 Acute maxillary sinusitis, unspecified (principal); Z20.822 Contact with and (suspected) exposure to COVID-19; J20.9 Acute bronchitis, unspecified; K21.9 Gastro-esophageal reflux disease without esophagitis; I10 Essential (primary) hypertension; J45.909 Unspecified asthma, uncomplicated
CPT/HCPCS: 99202; C9803; G0463; U0003; U0005

== ENCOUNTER → 2021-07-31 14:42 | Outpatient (CLI) | payer OTHER, SELFPAY ==
--- NOTE | 2021-07-31 14:45 | MR_ITS ---
FINAL REPORT CLINICAL HISTORY: Back Pain continued LOWER BACK PAIN SINCE FALL X YEARS AGO BILATERAL NUMBNESS POSTERIOR ASPECT OF LEGS FINDINGS: Multiplanar MR imaging of the lumbar spine was performed without contrast. On the sagittal T2-weighted images, disc degeneration is seen at multiple levels. The vertebral alignment is normal. There is no evidence of fracture. No bony mass is identified. The conus has an unremarkable appearance. No significant canal stenosis is identified. L1-2: There is no significant canal stenosis or neural foraminal narrowing. L2-3: There is no significant canal stenosis or neural foraminal narrowing. L3-4: An annular bulge is present. There is no significant canal stenosis or neural foraminal narrowing. L4-5: An annular bulge is present. There is moderate bilateral neural foraminal narrowing. L5-S1: There is a right posterolateral disc protrusion. There is moderate right neural foraminal narrowing. IMPRESSION: Multilevel degenerative disc disease with areas of neural foraminal narrowing as described. Right posterolateral disc protrusion at L5-S1 without significant central canal stenosis. Reviewed, Interpreted and Dictated by Maverick Barnes III, MD Transcribed by Manjinder Peralta Authenticated by Maverick Barnes III, MD on 07/31/2021 04:47:18 PM [facility]
== END ==
PROVIDERS: PCP Emergency Medicine; Visit Provider Emergency Medicine
DX: M54.5 Low back pain (principal); S70.00XA Contusion of unspecified hip, initial encounter
CPT/HCPCS: 72148; 76376

== ENCOUNTER → 2021-08-09 11:26 | Outpatient (CLI) | payer OTHER, SELFPAY ==
[2021-08-09 13:04] LABS: Basophils # 0.1 K/mm3 (0-0.2); Eosinophils # 0.1 K/mm3 (0.0-0.4); Eosinophils % 1.8 % (0.1-12.0); Hemoglobin 15.2 g/dL (12.2-16.2); Lymphocytes # 1.9 K/mm3 (0.7-4.5); Lymphocytes % 34.3 % (10-50); Mean Corpuscular HGB Conc 33.7 g/dL (31.8-35.4); Mean Corpuscular Hemoglobin 32.3 pg (27.0-31.2); Mean Corpuscular Volume 95.9 fl (81-99); Mean Platelet Volume 9.5 fl (7.4-10.4); Monocytes # 0.3 K/mm3 (0.1-1.0); Monocytes % 5.6 % (1.7-9.3); Neutrophils # 3.1 K/mm3 (1.8-7.8); Neutrophils % 56.3 % (37.0-80.0); Platelet Count 278 K/mm3 (142-424); Red Blood Count 4.69 M/mm3 (4.20-5.40); White Blood Count 5.5 K/mm3 (4.8-10.8)
[2021-08-09 13:31] LABS: Alanine Aminotransferase 19 U/L (12-78); Albumin Level 4.1 g/dl (3.5-5.0); Alkaline Phosphatase 62 U/L (38-126); Anion Gap 11.2 mEq/L (5-15); Aspartate Amino Transferase 24 U/L (14-36); Bilirubin,Indirect 0.2 mg/dL (0.0-0.9); Bilirubin,Total 0.2 mg/dl (0.2-1.3); Bilirubin,Unconjugated 0.5 mg/dL (0.0-1.1); Blood Urea Nitrogen 17 mg/dl (7-17); Calcium 9.4 mg/dl (8.4-10.2); Carbon Dioxide 30 mmol/L (22.0-30.0); Chloride 102 mmol/L (98-107); Chol/HDL Ratio 4.6 (1-3.5); Cholesterol 197 mg/dl (140-200); Estimated Glomerular Filt Rate 66 ml/min (>60); GFR (African American) 80 ML/MIN (>60); Glucose 146 mg/dl (74-100); HDL Cholesterol 43 mg/dl (40-60); Potassium 4.2 mmoL/L (3.5-5.1); Sodium 139 mmol/L (136-145); Total Protein,Serum 6.6 g/dl (6.3-8.2); Triglycerides 158 mg/dl (30-150); VLDL Cholesterol 32 mg/dL (0-40)
[2021-08-09 13:43] LABS: NT Pro Brain Natriuretic Pep. 90.3 pg/mL (0-125)
[2021-08-09 13:47] LABS: Free T4 (Free Thyroxine) 1.12 ng/dl (0.78-2.19)
[2021-08-09 14:05] LABS: Thyroid Stimulating Hormone 0.62 uIU/mL (0.465-4.68)
== END ==
PROVIDERS: PCP Emergency Medicine; Visit Provider Physician Assistant
DX: R06.02 Shortness of breath (principal); I11.9 Hypertensive heart disease without heart failure; R60.9 Edema, unspecified
CPT/HCPCS: 36415; 80048; 80061; 80076; 83880; 84439; 84443; 85025

== ENCOUNTER → 2021-09-10 12:51 | Outpatient (CLI) | payer OTHER, SELFPAY ==
[2021-09-10 14:03] LABS: Hemoglobin A1C 5.3 % (4.0-6.0)
== END ==
PROVIDERS: PCP Emergency Medicine; Visit Provider Emergency Medicine
DX: R73.09 Other abnormal glucose (principal)
CPT/HCPCS: 36415; 83036

== ENCOUNTER 2021-12-03 11:52 | Emergency (ER) | payer OTHER, SELFPAY ==
[2021-12-03 13:15] VITALS: BP 117/73; PULSE 69; RESP 18; TEMP 36.9; O2SAT 99; BMI 36.7
--- NOTE | 2021-12-03 13:24 | EXP.UTC ---
Discharge Plan Disposition Patient Disposition: Home, Self-Care Condition: Good Prescriptions Prescriptions: New azithromycin [Zithromax] 250 mg tablet 250 mg PO UD DOSE PK Qty: 6 0RF Rx Instructions: Take two (2) tablets today, then one (1) tablet days #2 thru #5 benzonatate [benzonatate] 100 mg capsule 100 mg PO TIDP PRN (Reason: Cough) Qty: 30 0RF methylprednisolone 4 mg Tablets,Dose Pack 4 mg PO DIRECTED Qty: 21 0RF moxifloxacin [Vigamox] 0.5 % drops 1 drp ophthalmic (eye) TID 7 Days Qty: 3 0RF No Action cetirizine 10 mg tablet 10 mg PO DAILY estradiol 1 mg tablet 1 mg PO DAILY Label Comments: TAKE 1 TABLET BY MOUTH EVERY DAY prazosin 1 mg capsule 1 mg PO estradiol 0.01 % (0.1 mg/gram) cream 1 g VAGINAL WEEKLY omeprazole 40 mg capsule,delayed release(DR/EC) 40 mg PO BID aripiprazole 10 mg tablet 10 mg PO DAILY metoclopramide HCl 10 mg tablet,disintegrating 10 mg PO Q6H polyethylene glycol 3350 [Miralax] 17 gram/dose powder 17 g PO DAILY Citrucel (sucrose) Powder 1 tbsp PO DAILY ipratropium-albuterol 0.5 mg-3 mg(2.5 mg base)/3 mL solution for nebulization 3 ml INHALATION QID PRN (Reason: shortness of breath or wheezing) 90 Days Qty: 270 3RF trazodone 50 mg tablet 50 mg PO DAILY bumetanide 2 mg tablet 2 mg PO BID Qty: 60 4RF escitalopram oxalate [Lexapro] 10 mg tablet 10 mg PO DAILY Qty: 30 1RF albuterol sulfate 90 mcg/actuation HFA aerosol inhaler 1 puff INHALATION Q4-6H PRN (Reason: Shortness Of Breath Or Wheezing) 90 Days Qty: 8.5 2RF aspirin 81 mg tablet,delayed release (DR/EC) See Rx Instructions .ROUTE .COMPLEX Qty: 90 1RF Dose Instruction: TAKE 1 TABLET BY MOUTH EVERY DAY Rx Instructions: TAKE 1 TABLET BY MOUTH EVERY DAY bisoprolol fumarate 5 mg tablet See Rx Instructions .ROUTE .COMPLEX Qty: 30 5RF Dose Instruction: TAKE ONE TABLET BY MOUTH EVERY DAY FOR hypertension Rx Instructions: TAKE ONE TABLET BY MOUTH EVERY DAY FOR hypertension carsononide-formoterol [Symbicort] 160-4.5 mcg/actuation HFA aerosol inhaler 2 puff INHALATION BID 90 Days Qty: 10.2 2RF clonazepam 0.5 mg tablet 0.5 mg PO BID Qty: 60 1RF spironolactone 100 mg tablet See Rx Instructions .ROUTE .COMPLEX Qty: 90 5RF Dose Instruction: TAKE ONE TABLET BY MOUTH EVERY DAY Rx Instructions: TAKE ONE TABLET BY MOUTH EVERY DAY Referrals Follow up/Referrals: Arben Rao MD [Primary Care Provider] - See instructions Activity Restrictions/Add. Instructions Additional Instructions/Restrictions: Drink plenty of fluids. Take tylenol or ibuprofen for pain or fever. Take the medications as directed. Follow up with your regular doctor. GO TO THE ER FOR ANY WORSENING SYMPTOMS Quarantine until you know the results of your covid-19 test. Notify your school or workplace of your results and follow their instructions regarding return to work/school. Clinical Impressions Clinical Impression: Pharyngitis Conjunctivitis Qualifiers: Conjunctivitis type: acute Acute conjunctivitis type: unspecified Laterality: bilateral Qualified Code(s): H10.33 - Unspecified acute conjunctivitis, bilateral Instructions Patient Instructions: DI for Strep Throat, Preventing the Spread of Coronavirus Discharge Instructions Discharge ED Provider: Kaveh Hawkins [facility] General Stated complaint: sore throat Mode of Arrival: Ambulatory Source of Information: Patient Limitations: No Limitations Time Seen by Provider: 12/03/21 13:23 HEENT Symptoms (Recalled from RN notes): Yes Resp Symptoms (Recalled from RN notes): No Skin Symptoms (Recalled from RN notes): No MS Symptoms (Recalled from RN notes): No Functional Status (Recalled from RN notes): n/a History of Present Illness Provider Complaint: pt comes in with c/o sore throat. symptoms began l
[2021-12-03 13:31] LABS: UTC Strep Screen (Rapid) Negative (Negative)
--- NOTE | 2021-12-03 13:37 | EXP.UTC ---
Discharge Plan Disposition Patient Disposition: Home, Self-Care Condition: Good Prescriptions Prescriptions: New azithromycin [Zithromax] 250 mg tablet 250 mg PO UD DOSE PK Qty: 6 0RF Rx Instructions: Take two (2) tablets today, then one (1) tablet days #2 thru #5 benzonatate [benzonatate] 100 mg capsule 100 mg PO TIDP PRN (Reason: Cough) Qty: 30 0RF methylprednisolone 4 mg Tablets,Dose Pack 4 mg PO DIRECTED Qty: 21 0RF moxifloxacin [Vigamox] 0.5 % drops 1 drp ophthalmic (eye) TID 7 Days Qty: 3 0RF No Action cetirizine 10 mg tablet 10 mg PO DAILY estradiol 1 mg tablet 1 mg PO DAILY Label Comments: TAKE 1 TABLET BY MOUTH EVERY DAY prazosin 1 mg capsule 1 mg PO estradiol 0.01 % (0.1 mg/gram) cream 1 g VAGINAL WEEKLY omeprazole 40 mg capsule,delayed release(DR/EC) 40 mg PO BID aripiprazole 10 mg tablet 10 mg PO DAILY metoclopramide HCl 10 mg tablet,disintegrating 10 mg PO Q6H polyethylene glycol 3350 [Miralax] 17 gram/dose powder 17 g PO DAILY Citrucel (sucrose) Powder 1 tbsp PO DAILY ipratropium-albuterol 0.5 mg-3 mg(2.5 mg base)/3 mL solution for nebulization 3 ml INHALATION QID PRN (Reason: shortness of breath or wheezing) 90 Days Qty: 270 3RF trazodone 50 mg tablet 50 mg PO DAILY bumetanide 2 mg tablet 2 mg PO BID Qty: 60 4RF escitalopram oxalate [Lexapro] 10 mg tablet 10 mg PO DAILY Qty: 30 1RF albuterol sulfate 90 mcg/actuation HFA aerosol inhaler 1 puff INHALATION Q4-6H PRN (Reason: Shortness Of Breath Or Wheezing) 90 Days Qty: 8.5 2RF aspirin 81 mg tablet,delayed release (DR/EC) See Rx Instructions .ROUTE .COMPLEX Qty: 90 1RF Dose Instruction: TAKE 1 TABLET BY MOUTH EVERY DAY Rx Instructions: TAKE 1 TABLET BY MOUTH EVERY DAY bisoprolol fumarate 5 mg tablet See Rx Instructions .ROUTE .COMPLEX Qty: 30 5RF Dose Instruction: TAKE ONE TABLET BY MOUTH EVERY DAY FOR hypertension Rx Instructions: TAKE ONE TABLET BY MOUTH EVERY DAY FOR hypertension carsononide-formoterol [Symbicort] 160-4.5 mcg/actuation HFA aerosol inhaler 2 puff INHALATION BID 90 Days Qty: 10.2 2RF clonazepam 0.5 mg tablet 0.5 mg PO BID Qty: 60 1RF spironolactone 100 mg tablet See Rx Instructions .ROUTE .COMPLEX Qty: 90 5RF Dose Instruction: TAKE ONE TABLET BY MOUTH EVERY DAY Rx Instructions: TAKE ONE TABLET BY MOUTH EVERY DAY Referrals Follow up/Referrals: Arben Rao MD [Primary Care Provider] - See instructions Activity Restrictions/Add. Instructions Additional Instructions/Restrictions: Drink plenty of fluids. Take tylenol or ibuprofen for pain or fever. Take the medications as directed. Follow up with your regular doctor. GO TO THE ER FOR ANY WORSENING SYMPTOMS Quarantine until you know the results of your covid-19 test. Notify your school or workplace of your results and follow their instructions regarding return to work/school. Clinical Impressions Clinical Impression: Pharyngitis Conjunctivitis Qualifiers: Conjunctivitis type: acute Acute conjunctivitis type: unspecified Laterality: bilateral Qualified Code(s): H10.33 - Unspecified acute conjunctivitis, bilateral Discharge ED Provider: Kaveh Hawkins [facility] General Stated complaint: sore throat Mode of Arrival: Ambulatory Source of Information: Patient Limitations: No Limitations Time Seen by Provider: 12/03/21 13:23 Description of Symptoms (Recalled from Triage Doc. by RN): pt comes in with c/o sore throat. symptoms began last night. grandkids have pink eye and pt states that she woke up this am also with dried drainage on eyes. HEENT Symptoms (Recalled from RN notes): Yes Resp Symptoms (Recalled from RN notes): No Skin Symptoms (Recalled from RN notes): No MS Symptoms (Recalled from RN notes): No Functional Status (Recalled from RN notes): n/a R
[2021-12-03 13:43] VITALS: BP 117/73; PULSE 69; RESP 18; TEMP 36.9
[2021-12-03 14:01] LABS: Adenovirus,PCR Not Detected (NotDetected); Bordetella Pertussis Not Detected (NotDetected); Chlamydophila Pneumoniae, PCR Not Detected (NotDetected); Coronavirus 19, PCR Not Detected (NotDetected); Coronavirus 229E Not Detected (NotDetected); Coronavirus NL63 Not Detected (NotDetected); Coronavirus OC43 Not Detected (NotDetected); Coronovirus HKU1,PCR Not Detected (NotDetected); Human Metapneumovirus Not Detected (NotDetected); Influenza A, PCR Not Detected (NotDetected); Influenza AH1, 2009 Not Detected (NotDetected); Influenza AH1, PCR Not Detected (NotDetected); Influenza AH3,PCR Not Detected (NotDetected); Influenza B, PCR Not Detected (NotDetected); Mycoplasma Pneumoniae, PCR Not Detected (NotDetected); Parainfluenza 1, PCR Not Detected (NotDetected); Parainfluenza 2, PCR Not Detected (NotDetected); Parainfluenza 3, PCR Not Detected (NotDetected); Parainfluenza 4, PCR Not Detected (NotDetected); Respiratory Syncytial Virus Not Detected (NotDetected); Rhinovirus/Enterovirus Not Detected (NotDetected)
== END 2021-12-03 13:50 | disposition home or self-care (01) ==
PROVIDERS: Emergency Provider Nurse Practitioner Family; PCP Emergency Medicine
DX: H10.33 Unspecified acute conjunctivitis, bilateral (principal)
CPT/HCPCS: 87581; 87632; 87798; 87880; 99212; C9803; G0463; U0003; U0005

== ENCOUNTER 2022-01-07 11:58 | Emergency (ER) | payer OTHER, SELFPAY ==
[2022-01-07 12:28] VITALS: BP 121/74; PULSE 89; RESP 18; TEMP 36.9; O2SAT 99; BMI 31.8
[2022-01-07 12:33] LABS: UTC Strep Screen (Rapid) Positive (Negative)
--- NOTE | 2022-01-07 13:07 | EXP.UTC ---
Discharge Plan Disposition Patient Disposition: Home, Self-Care Condition: Good Prescriptions Prescriptions: New amoxicillin 875 mg tablet 875 mg PO BID Qty: 20 0RF No Action estradiol 1 mg tablet 1 mg PO DAILY Label Comments: TAKE 1 TABLET BY MOUTH EVERY DAY prazosin 1 mg capsule 1 mg PO DAILY estradiol 0.01 % (0.1 mg/gram) cream 1 g VAGINAL WEEKLY omeprazole 40 mg capsule,delayed release(DR/EC) 40 mg PO BID aripiprazole 10 mg tablet 10 mg PO DAILY polyethylene glycol 3350 [Miralax] 17 gram/dose powder 17 g PO DAILY Citrucel (sucrose) Powder 1 tbsp PO DAILY trazodone 50 mg tablet 50 mg PO DAILY albuterol sulfate 90 mcg/actuation HFA aerosol inhaler 1 puff INHALATION Q4-6H PRN (Reason: Shortness Of Breath Or Wheezing) 90 Days Qty: 8.5 2RF spironolactone 100 mg tablet See Rx Instructions .ROUTE .COMPLEX Rx Instructions: TAKE ONE TABLET BY MOUTH EVERY DAY aspirin 81 mg tablet,delayed release (DR/EC) See Rx Instructions .ROUTE .COMPLEX Rx Instructions: TAKE 1 TABLET BY MOUTH EVERY DAY bisoprolol fumarate 5 mg tablet See Rx Instructions .ROUTE .COMPLEX Rx Instructions: TAKE ONE TABLET BY MOUTH EVERY DAY FOR hypertension escitalopram oxalate [Lexapro] 10 mg tablet 10 mg PO DAILY bumetanide 2 mg tablet 2 mg PO BID clonazepam 0.5 mg tablet 0.5 mg PO BID Referrals Follow up/Referrals: Arben Rao MD [Primary Care Provider] - See instructions Activity Restrictions/Add. Instructions Additional Instructions/Restrictions: *Monitor Temp, Over the counter Motrin or Tylenol as directed/as needed Tylenol every 4 hours and Motrin every 6 hours (as long as your family doctor has told you that you can take it) for fever or pain. and straight to ER if unable to lower temp less than 101.0 after medication given *Warm salt water gargles may help to soothe the throat *Throat Lozenges? *Warm fluids like tea with honey may help to soothe the throat? *Sleep elevated *Humidifier/Vaporizer *If you did not take Penicillin shot or was unable to, start taking antibiotic immediately and make sure that you take it for the FULL length of time although you should start to feel better in 24-48 hours *change toothbrush and toothpaste 24-48 hours after starting to take antibiotics so you do not reinfect yourself Monitor Temp. Tylenol and/or Ibuprofen as needed. ER if fever is no less than 101 despite alternating Tylenol and Ibuprofen * Encourage fluids, water, Gatorade, powerade, pedialyte if /toddler/or child *Cold fluids, popsicles and ice cream may feel good on his throat Follow up IMMEDIATELY for new or worsening symptoms or no Noticeable improvement over the next 48-72 hours. 911 for difficulty breathing or swallowing Clinical Impressions Clinical Impression: Strep throat Instructions Patient Instructions: Strep Throat, DI for Strep Throat Discharge ED Provider: Danelle Rao [facility] [place] General Stated complaint: sore throat Mode of Arrival: Ambulatory Source of Information: Patient Limitations: No Limitations Time Seen by Provider: 01/07/22 13:08 Description of Symptoms (Recalled from Triage Doc. by RN): pt comes in with c/o sore throat. symptoms began this am. HEENT Symptoms (Recalled from RN notes): Yes Resp Symptoms (Recalled from RN notes): No Skin Symptoms (Recalled from RN notes): No MS Symptoms (Recalled from RN notes): No Functional Status (Recalled from RN notes): n/a History of Present Illness Provider Complaint: Patient states that she has been having sore throat since this mornign and it has continued to get worse Related Data Home Medications Medication Instructions Recorded Confirmed estradiol 1 mg tablet 1 mg PO DAILY Supplement 12/08/19 01/07/22 aripiprazole 10 mg tablet 10 mg PO DAILY Depression 04/03/21 01/07/22 methylcellulose (with matos
[2022-01-07 13:15] VITALS: BP 121/74; PULSE 89; RESP 18; TEMP 36.9
== END 2022-01-07 13:20 | disposition home or self-care (01) ==
PROVIDERS: Emergency Provider Nurse Practitioner; PCP Emergency Medicine
DX: J02.0 Streptococcal pharyngitis (principal); B95.0 Streptococcus, group A, as the cause of diseases classified elsewhere; R06.02 Shortness of breath; R07.9 Chest pain, unspecified; R00.0 Tachycardia, unspecified; I11.0 Hypertensive heart disease with heart failure; I50.31 Acute diastolic (congestive) heart failure; F32.A Depression, unspecified; Z79.51 Long term (current) use of inhaled steroids; Z79.82 Long term (current) use of aspirin; Z79.899 Other long term (current) drug therapy; Z79.890 Hormone replacement therapy
CPT/HCPCS: 87880; 99213; G0463

== ENCOUNTER 2022-01-24 16:38 | Emergency (ER) | payer OTHER, SELFPAY ==
--- NOTE | 2022-01-24 16:50 | EXP.UTC ---
Discharge Plan Disposition Patient Disposition: Home, Self-Care Condition: Good Prescriptions Prescriptions: No Action estradiol 1 mg tablet 1 mg PO DAILY Label Comments: TAKE 1 TABLET BY MOUTH EVERY DAY prazosin 1 mg capsule 1 mg PO DAILY omeprazole 40 mg capsule,delayed release(DR/EC) 40 mg PO BID polyethylene glycol 3350 [Miralax] 17 gram/dose powder 17 g PO DAILY Citrucel (sucrose) Powder 1 tbsp PO DAILY trazodone 50 mg tablet 50 mg PO DAILY albuterol sulfate 90 mcg/actuation HFA aerosol inhaler 1 puff INHALATION Q4-6H PRN (Reason: Shortness Of Breath Or Wheezing) 90 Days Qty: 8.5 2RF clonazepam 0.5 mg tablet 0.5 mg PO BID Qty: 60 2RF spironolactone 100 mg tablet See Rx Instructions .ROUTE .COMPLEX Rx Instructions: TAKE ONE TABLET BY MOUTH EVERY DAY aspirin 81 mg tablet,delayed release (DR/EC) See Rx Instructions .ROUTE .COMPLEX Rx Instructions: TAKE 1 TABLET BY MOUTH EVERY DAY bisoprolol fumarate 5 mg tablet See Rx Instructions .ROUTE .COMPLEX Rx Instructions: TAKE ONE TABLET BY MOUTH EVERY DAY FOR hypertension escitalopram oxalate [Lexapro] 10 mg tablet 10 mg PO DAILY bumetanide 2 mg tablet 2 mg PO BID Referrals Follow up/Referrals: Arben Rao MD [Primary Care Provider] - See instructions Activity Restrictions/Add. Instructions Additional Instructions/Restrictions: Drink plenty of fluids. Take tylenol or ibuprofen for pain or fever. Take the medications as directed. Follow up with your regular doctor. GO TO THE ER FOR ANY WORSENING SYMPTOMS Throw your tooth brush away and get a new one. Don't start the oral steroids until tomorrow, since you had the shot here today. Clinical Impressions Clinical Impression: Strep throat Instructions Patient Instructions: Strep Throat, DI for Strep Throat Discharge ED Provider: Kaveh Hawkins [facility] [place] HPI General Stated complaint: sore throat, Time Seen by Provider: 01/24/22 16:50 History of Present Illness Provider Complaint: She c/o sore throat for the past 2 days. She has had fever and body aches also. Related Data Home Medications Medication Instructions Recorded Confirmed estradiol 1 mg tablet 1 mg PO DAILY Supplement 12/08/19 01/23/22 methylcellulose (with sugar) oral 1 tbsp PO DAILY bowels 04/03/21 01/23/22 powder (Citrucel (sucrose) oral powder) omeprazole 40 mg capsule,delayed 40 mg PO BID GERD 04/03/21 01/23/22 release polyethylene glycol 3350 17 17 g PO DAILY Supplement 04/03/21 01/23/22 gram/dose oral powder (Miralax) trazodone 50 mg tablet 50 mg PO DAILY Insomnia 07/17/21 01/23/22 prazosin 1 mg capsule 1 mg PO DAILY High blood pressure 07/20/21 01/23/22 aspirin 81 mg tablet,delayed See Rx Instructions .Route 01/07/22 01/23/22 release .COMPLEX heart health bisoprolol fumarate 5 mg tablet See Rx Instructions .Route 01/07/22 01/23/22 .COMPLEX High blood pressure bumetanide 2 mg tablet 2 mg PO BID Heart failure 01/07/22 01/23/22 escitalopram oxalate 10 mg tablet 10 mg PO DAILY Anxiety 01/07/22 01/23/22 (Lexapro) spironolactone 100 mg tablet See Rx Instructions .Route 01/07/22 01/23/22 .COMPLEX Edema Previous Rx's Medication Instructions Recorded albuterol sulfate 90 mcg/actuation 1 puff inhalation Q4-6H PRN 10/15/21 aerosol inhaler Shortness Of Breath Or Wheezing 90 days #8.5 grams clonazepam 0.5 mg tablet 0.5 mg PO BID Anxiety #60 tabs 01/23/22 Allergies Allergy/AdvReac Type Severity Reaction Status Date / Time No Known Allergies Allergy Verified 01/23/22 16:11 PFSH PFS Medical History BMI 36.0-36.9,adult Chest pain Depression Diastolic dysfunction Dyspnea Edema HTN (hypertension) Tachycardia Social History Smoking Status: Never smoker second hand exposu
[2022-01-24 16:58] VITALS: BP 122/73; PULSE 67; RESP 18; TEMP 36.8; O2SAT 94; BMI 37.8
[2022-01-24 17:06] LABS: UTC Strep Screen (Rapid) Positive (Negative)
[2022-01-24 17:22] VITALS: BP 122/71; PULSE 68; RESP 16; TEMP 36.6; O2SAT 95
== END 2022-01-24 18:00 | disposition home or self-care (01) ==
PROVIDERS: Emergency Provider Nurse Practitioner Family; PCP Emergency Medicine
DX: J02.0 Streptococcal pharyngitis (principal)
CPT/HCPCS: 87880; 96372; 99212; G0463; J0561

== ENCOUNTER 2022-06-17 11:57 | Emergency (ER) | payer OTHER, SELFPAY ==
[2022-06-17 12:10] VITALS: BP 128/76; PULSE 75; RESP 20; TEMP 37.3; O2SAT 95; BMI 38.0
[2022-06-17 12:39] LABS: UTC Strep Screen (Rapid) Positive (Negative)
--- NOTE | 2022-06-17 12:51 | EXP.UTC ---
Discharge Plan Disposition Patient Disposition: Home, Self-Care Condition: Good Prescriptions Prescriptions: New amoxicillin 875 mg tablet 875 mg PO BID Qty: 20 0RF No Action estradiol 1 mg tablet 1 mg PO DAILY Label Comments: TAKE 1 TABLET BY MOUTH EVERY DAY prazosin 1 mg capsule 1 mg PO DAILY omeprazole 40 mg capsule,delayed release(DR/EC) 40 mg PO BID polyethylene glycol 3350 [Miralax] 17 gram/dose powder 17 g PO DAILY Citrucel (sucrose) Powder 1 tbsp PO DAILY trazodone 50 mg tablet 50 mg PO DAILY albuterol sulfate 90 mcg/actuation HFA aerosol inhaler 1 puff INHALATION Q4-6H PRN (Reason: Shortness Of Breath Or Wheezing) 90 Days Qty: 8.5 2RF bisoprolol fumarate 5 mg tablet 5 mg PO DAILY Qty: 90 3RF spironolactone 100 mg tablet See Rx Instructions .ROUTE .COMPLEX Rx Instructions: TAKE ONE TABLET BY MOUTH EVERY DAY aspirin 81 mg tablet,delayed release (DR/EC) See Rx Instructions .ROUTE .COMPLEX Rx Instructions: TAKE 1 TABLET BY MOUTH EVERY DAY escitalopram oxalate [Lexapro] 10 mg tablet 10 mg PO DAILY bumetanide 2 mg tablet 2 mg PO BID clonazepam 0.5 mg tablet 0.5 mg PO BID Referrals Follow up/Referrals: Arben Rao MD [Primary Care Provider] - See instructions Activity Restrictions/Add. Instructions Additional Instructions/Restrictions: *Monitor Temp, Over the counter Motrin or Tylenol as directed/as needed Tylenol every 4 hours and Motrin every 6 hours (as long as your family doctor has told you that you can take it) for fever or pain. and straight to ER if unable to lower temp less than 101.0 after medication given *Warm salt water gargles may help to soothe the throat *Throat Lozenges? *Warm fluids like tea with honey may help to soothe the throat? *Sleep elevated *Humidifier/Vaporizer *If you did not take Penicillin shot or was unable to, start taking antibiotic immediately and make sure that you take it for the FULL length of time although you should start to feel better in 24-48 hours *change toothbrush and toothpaste 24-48 hours after starting to take antibiotics so you do not reinfect yourself Monitor Temp. Tylenol and/or Ibuprofen as needed. ER if fever is no less than 101 despite alternating Tylenol and Ibuprofen * Encourage fluids, water, Gatorade, powerade, pedialyte if infant/toddler/or child *Cold fluids, popsicles and ice cream may feel good on his throat Follow up IMMEDIATELY for new or worsening symptoms or no Noticeable improvement over the next 48-72 hours. 911 for difficulty breathing or swallowing Clinical Impressions Clinical Impression: Strep throat Stand Alone Forms Stand Alone Forms: Work/School Release Instructions Patient Instructions: DI for Strep Throat, Strep Throat Discharge ED Provider: Danelle Rao [facility] [place] HPI General Stated complaint: sore throat chest congestion Mode of Arrival: Ambulatory Source of Information: Patient Limitations: No Limitations Time Seen by Provider: 06/17/22 12:52 Description of Symptoms (Recalled from Triage Doc. by RN): sore throat, and body cough HEENT Symptoms (Recalled from RN notes): Yes Resp Symptoms (Recalled from RN notes): No Skin Symptoms (Recalled from RN notes): No MS Symptoms (Recalled from RN notes): No Functional Status (Recalled from RN notes): n/a History of Present Illness Provider Complaint: Patient states that she has been having sore throat, bodyaches, cough and nasal congestion States that she feels like she did when she had strep throat before so today when she was still not feeling well she came in Related Data Home Medications Medication Instructions Recorded Confirmed estradiol 1 mg tablet 1 mg PO DAILY Supplement 12/08/19 06/17/22 methylcellulose (with sugar) oral 1 tbsp PO DAILY bowels 04/03/21 04/22/22 powder (Citrucel (sucrose) oral powder) omeprazole 40 m
[2022-06-17 13:15] VITALS: BP 128/76; PULSE 75; RESP 20; TEMP 37.3; O2SAT 95
== END 2022-06-17 13:15 | disposition home or self-care (01) ==
PROVIDERS: Emergency Provider Nurse Practitioner; PCP Emergency Medicine
DX: J02.0 Streptococcal pharyngitis (principal); R05.1 Acute cough
CPT/HCPCS: 87880; 99212; 99214; G0463

== ENCOUNTER → 2022-07-17 10:46 | Outpatient (CLI) | payer OTHER, SELFPAY ==
[2022-07-17 15:05] LABS: Alanine Aminotransferase 26 U/L (12-78); Albumin Level 4.2 g/dl (3.5-5.0); Albumin/Globulin Ratio 1.5 (1.1-1.8); Alkaline Phosphatase 71 U/L (38-126); Aspartate Amino Transferase 29 U/L (14-36); Bilirubin,Total 0.4 mg/dl (0.2-1.3); Blood Urea Nitrogen 21 mg/dl (7-17); Carbon Dioxide 26 mmol/L (22.0-30.0); Chloride 103 mmol/L (98-107); Chol/HDL Ratio 4.6 (1-3.5); Cholesterol 217 mg/dl (140-200); Estimated Glomerular Filt Rate 66 ml/min (>60); GFR (African American) 80 ML/MIN (>60); Globulin 2.8 g/dL (1.3-3.2); Glucose 135 mg/dl (74-100); HDL Cholesterol 47 mg/dl (40-60); Sodium 138 mmol/L (136-145); Triglycerides 318 mg/dl (30-150); VLDL Cholesterol 64 mg/dL (0-40)
[2022-07-17 15:06] LABS: Basophils # 0.1 K/mm3 (0-0.2); Eosinophils # 0.2 K/mm3 (0.0-0.4); Eosinophils % 2.9 % (0.1-12.0); Hematocrit 45.4 % (37.0-47.0); Hemoglobin 15.1 g/dL (12.2-16.2); Lymphocytes # 2.6 K/mm3 (0.7-4.5); Lymphocytes % 37.3 % (10-50); Mean Corpuscular HGB Conc 33.2 g/dL (31.8-35.4); Mean Corpuscular Hemoglobin 31.9 pg (27.0-31.2); Monocytes # 0.4 K/mm3 (0.1-1.0); Monocytes % 6.2 % (1.7-9.3); Neutrophils # 3.7 K/mm3 (1.8-7.8); Neutrophils % 52.5 % (37.0-80.0); Platelet Count 259 K/mm3 (142-424); Red Blood Count 4.73 M/mm3 (4.20-5.40); Red Cell Distribution Width 13.2 % (11.5-17.5)
[2022-07-17 15:18] LABS: Direct LDL Cholesterol 105.35 mg/dL (100-129)
[2022-07-17 15:22] LABS: 25-OH Vitamin D, Total 31.1 ng/mL (30-100)
[2022-07-17 15:37] LABS: Thyroid Stimulating Hormone 0.67 uIU/mL (0.465-4.68)
[2022-07-17 15:56] LABS: Vitamin B12 333 pg/mL (239-931)
== END ==
PROVIDERS: PCP Emergency Medicine; Visit Provider Emergency Medicine
DX: F41.9 Anxiety disorder, unspecified (principal); E66.9 Obesity, unspecified; Z68.41 Body mass index [BMI] 40.0-44.9, adult
CPT/HCPCS: 80053; 80061; 82306; 82607; 84443; 85025

== ENCOUNTER → 2022-07-18 15:48 | Outpatient (CLI) | payer OTHER, SELFPAY ==
[2022-07-18 15:56] LABS: Hemoglobin A1C 5.3 % (4.0-6.0)
== END ==
PROVIDERS: PCP Emergency Medicine; Visit Provider Emergency Medicine
DX: E66.9 Obesity, unspecified (principal); Z68.41 Body mass index [BMI] 40.0-44.9, adult
CPT/HCPCS: 83036

== ENCOUNTER → 2022-07-25 10:46 | Outpatient (CLI) | payer OTHER, SELFPAY ==
--- NOTE | 2022-07-25 10:46 | MR_ITS ---
FINAL REPORT CLINICAL HISTORY: neck pain. LEFT ARN PAIN, NUMBNESS, AND TINGLING. SYMPTOMS XYEARS. HEADACE. COMPARISON: none FINDINGS: Multiplanar MR imaging of the cervical spine was performed without contrast. On the sagittal T2-weighted images, disc degeneration is seen throughout. There are endplate changes at C5-6. The vertebral alignment is normal. The cervical spinal cord has an unremarkable appearance without evidence of mass, edema or syrinx. The cervicomedullary junction is normal. C2-3: There is no significant canal stenosis or neural foraminal narrowing. C3-4: Annular disc bulge. Uncovertebral osteophyte, worse on the right. Severe right and moderate left neural foraminal narrowing. Mild central canal stenosis with AP diameter of the thecal sac of 7 mm. C4-5: Annular disc bulge. Right uncovertebral osteophyte. Moderate right neural foraminal narrowing. Mild central canal stenosis with an AP diameter of the thecal sac of 9 mm. C5-6: Disc osteophyte complex. Moderate right and severe left neural foraminal narrowing. Mild central canal stenosis with AP diameter of the thecal sac of 8 mm. C6-7: Disc osteophyte complex. Severe bilateral neural foraminal narrowing. Mild central canal stenosis with AP diameter of the thecal sac of 8 mm. C7-T1: Uncovertebral osteophyte. Mild right and severe left neural foraminal narrowing. T1-2: Uncovertebral osteophyte. Mild bilateral neural foraminal narrowing. IMPRESSION: Multilevel degenerative disc disease as above. Reviewed, Interpreted and Dictated by Maverick Barnes III, MD Transcribed by Hedy Galvan Authenticated and [facility]
== END ==
PROVIDERS: PCP Emergency Medicine; Visit Provider Emergency Medicine
DX: M54.2 Cervicalgia (principal)
CPT/HCPCS: 72141; 76376

== ENCOUNTER → 2022-08-14 10:38 | Outpatient (POV) | payer MEDICARE, OTHER, SELFPAY ==
[2022-08-14 10:45] VITALS: BP 122/68; PULSE 70; RESP 20; BMI 44.4
--- NOTE | 2022-08-14 11:15 | EXP.PAIN.OV ---
HPI Data of Consult Patient: new to practice Consult date: 08/14/22 Requesting Physician: Martha Hastings APRN Primary Care Provider: Arben Rao MD Consult Narrative Reason for consult: Neck pain with bilateral upper extremity pain, low back pain with bilateral History of present illness: Ms. Sawyer is a 51 year old female who presents today as a new patient. She is a referral from Dr. Rao's office. Today she rates her pain a 8 out of 10. Patient states she has pain from her neck down to her low back with radiating symptoms into her extremities. She does describe these pains as a constant sharp, stabbing sensation that is worse with increased activity. Patient states this has been going on for years and progressively worsened over time. She does state that a few years ago she did have a significant fall where she landed hard on her left side and then also had worsening symptoms. Patient did go to [facility] and was seen by Evan Hastings for this injury and did get injections that provided some improvement. Patient states she has tried [id number] Tylenol and ibuprofen along with heat and ice and topicals with no additional relief. Patient has been to physical therapy which worsened her pain symptoms. In the past she has also been prescribed muscle relaxers with no additional relief and she states that she did not like the way these made her feel. 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 CC: Martha Hastings APRN [facility] Disclaimer: The information contained in this section may have been updated after the patient was seen, as this information can be updated by other users. Medical History BMI 36.0-36.9,adult Chest pain Depression Diastolic dysfunction Dyspnea Edema HTN (hypertension) Tachycardia Social History Smoking Status: Never smoker second hand exposure: No alcohol intake: never substance use type: denies use current occupational status: other Travel in the last 8 weeks: None household members: none housing: house current occupational exposures/hazards: No caffeine: Yes Review of Systems Review of Systems Review of systems:: pertinent systems reviewed and negative unless documented below Review of systems (narrative): Review of Systems: General: No recent weight changes, no fever, no sleep disturbances Respiratory: No cough, no shortness of air, no recurring pulmonary infections Cardiovascular/peripheral vascular: No chest pain, no palpitations, no edema, no shortness of breath Gastrointestinal: No new onset incontinence, normal bowel movements reported Genitourinary: No new onset incontinence Musculoskeletal: Neck pain, low back pain, extremity pain Psychiatric: [Normal mood/affect] Neurological: [Denies weakness in extremities], [denies balance issues] Meds Home Medications and Allergies Home Medications Medication Instructions Recorded Confirmed Type estradiol 1 mg tablet 1 mg PO DAILY Supplement 12/08/19 08/14/22 History methylcellulose (with sugar) oral 1 tbsp PO DAILY bowels 04/03/21 08/14/22 History powder (Citrucel (sucrose) oral powder) omeprazole 40 mg capsule,delayed 40 mg PO BID GERD 04/03/21 08/14/22 History release polyethylene glycol 3350 17 17 g PO DAILY Supplement 04/03/21 08/14/22 History gram/dose oral powder (Miralax) trazodone 50 mg tablet 50 mg PO DAILY Insomnia 07/17/21 08/14/22 History prazosin 1 mg capsule 1 mg PO DAILY High blood pressure 07/20/21 08/14/22 History albuterol sulfate 90 mcg/actuation 1 puff inhalation Q4-6H PRN 10/15/21 08/14/22 Rx aerosol inhaler Shortness Of Breath Or Wheezing 90 days #8.5 grams aspirin 81 mg tablet,delayed See Rx Instructions .Route 01/07/22 08/14/22 History release .COMPLEX heart health bisoprolol fum
== END ==
PROVIDERS: PCP Emergency Medicine; Visit Provider Nurse Practitioner Family
DX: M51.16 Intervertebral disc disorders with radiculopathy, lumbar region (principal); M48.02 Spinal stenosis, cervical region
CPT/HCPCS: 99212; G0463

== ENCOUNTER → 2022-08-15 08:20 | Outpatient (CLI) | payer MEDICARE, OTHER, SELFPAY | PROVIDERS: PCP Emergency Medicine; Visit Provider Emergency Medicine | DX: R06.02 Shortness of breath; I50.30 Unspecified diastolic (congestive) heart failure; R60.9 Edema, unspecified; I11.0 Hypertensive heart disease with heart failure | CPT/HCPCS: 93306 ==

== ENCOUNTER 2022-08-27 09:16 | Day surgery (SDC) | payer MEDICARE, OTHER, SELFPAY ==
[2022-08-27 09:28] VITALS: BP 147/92; PULSE 83; RESP 18; TEMP 37.1; O2SAT 97; BMI 44.4
[2022-08-27 09:34] VITALS: BP 129/81; PULSE 91; RESP 18; O2SAT 96
[2022-08-27 09:35] VITALS: BP 129/81; PULSE 91; RESP 18; O2SAT 96
[2022-08-27 09:40] VITALS: BP 136/59; PULSE 76; RESP 18; O2SAT 97
--- NOTE | 2022-08-27 09:48 | P.PCN_ITS ---
Procedure Date: 08/27/22 Time: 09:30 Anesthesiologist:: Smith Segura CRNA Complications:: None Pre-procedure Diagnosis:: Degenerative disc disease cervical spine multilevels. Cervical radiculopathy Post-procedure Diagnosis:: Same. Indications for Procedure:: Patient is a very pleasant 51-year-old female comes our clinic today for cervical epidural steroid injection C6-7 level. Patient complains of cervical neck pain as well as bilateral arm radicular symptoms at times. Patient's cer vical MRI shows multilevel degenerative disc. Disc bulge C4-5, C5-6, C6-7. Procedure Details:: Procedure:Cervical epidural steroid injection Informed consent was obtained and the risks and benefits of the procedure were explained to the patient. The patient was taken to the procedure room and noninvasive monitors placed, including noninvasive blood pressure cuff and pulse oximeter. The neck was prepped using Chloraprep as a cleansing solution. The C6- C7 interspace was viewed using fluroscopy. The skin and subcutaneous tissues were anesthetized using lidocaine 1.5% and a 25-gauge needle. After this an 18- gauge Touhy epidural needle was placed into the C6-C7 interspace under fluroscopy guidance and advanced using loss of resistance to air until the epidural space was encountered. After confirmation of needle placement in the epidural space using contrast dye, a solution containing normal saline, 2 mL and Depo-Medrol 80 mg was incrementally injected into the cervical epidural space.~ The patient tolerated the procedure well with no complications. The patient was observed in the Pain Clinic and then discharged home neurologically intact. Plan and Disposition:: Patient was discharged without incident.
== END 2022-08-27 09:40 | disposition home or self-care (01) ==
LOC: SC.PAINP 09:17
PROVIDERS: PCP Emergency Medicine; Visit Provider Nurse Anesthetist, Certified Registered
DX: M50.123 Cervical disc disorder at C6-C7 level with radiculopathy (principal)
CPT/HCPCS: 62321; J1040; Q9966

== ENCOUNTER → 2022-09-02 12:18 | Outpatient (CLI) | payer MEDICARE, SELFPAY ==
--- NOTE | 2022-09-02 | CA_ITS ---
APPROVED REPORT Exam: Exercise Treadmill Technologist: Magda Barrios Ht: 5 ft 0 in Wt: 220 lbs BSA: 1.94 m2 HR: 68 bpm BP: 147/71 mmHg Rhythm: NSR, PVCs Indications: Chest pain Medical History Medications: Omeprazole,,,,, Aspirin,,,,, Lexapro,,,,, ClonAZEPAM,,,,, Albuterol,,,,, BisOPROLOL,,,,, PraZOSIN,,,,, SpirOnolactone,,,,, Trazodone,,,,, Methylcellulose,,,,, BuMETAmide,,,,, Stress Test Details Test: Shailesh HR Resting HR: 77 bpm Max Heart Rate (APMHR): 169 bpm Max HR Achieved: 163 bpm Target HR (85% APMHR): 144 bpm % of APMHR: 96 Recovery HR: 102 bpm HR response to stress: Normal HR response to stress BP Resting BP: 147.0/71.0 mmHg Max BP: 172.0/73.0 mmHg Recovery BP: 123.0/50.0 mmHg BP response to stress: Normal blood pressure response to stress. ECG Resting ECG: Sinus rhythm, PVC Stress ECG: <[address] depression Arrhythmia: PVCs Recovery ECG: Resolution of ST changes Recovery Arrhythmia: Frequent PVCs Clinical Reason for Termination: Chest pain, dyspnea Exercise duration: 05:18 min Highest Stage Achieved: Exercise capacity: 7.0 METs Overall Exercise Capacity for Age: Average Stress ECG Conclusion Symptoms: Dyspnea, Chest tightness Arrhythmias/Ectopy: Occassional PVC ST-T Changes: < [address] depression Conclusion: The patient exercised for 5m 18s, achieving 7 METs. She has an average exercise capacity compared to age and sex matched peers. She had normal HR and BP response to exercise. At basline, ECG demonstrated normal sinus rhythm with occasional PVCs. At peak stress, there was < 1mm horizontal ST depression that eventually resolved during recovery. During peak stress and recovery, she was noted to have PVCs. Overall, ECG stress test demonstrated possible ischemia. Myoview images are reported separately. Test Summary REST . . . . . . . Sitting REST 02:13 0.0 0.0 77 . 147/ 71 . . Stage 1 01:00 10.0 1.7 109 . . . . Stage 1 02:00 10.0 1.7 132 . . . . Stage 1 03:00 10.0 1.7 144 . 156/ 78 . . Stage 2 01:00 12.0 2.5 155 . . . . Stage 2 . . . . . . . Myoview Injected Stage 2 02:00 12.0 2.5 160 . . . . Stage 2 02:18 12.0 2.5 162 . 160/ 84 . Stop exercise at 05:18 RECOVERY 01:00 0.0 0.0 144 . . . . RECOVERY 02:00 0.0 0.0 126 . . . . RECOVERY 03:00 0.0 0.0 114 . . . . RECOVERY 04:00 0.0 0.0 112 . 156/ 77 . . RECOVERY 05:00 0.0 0.0 106 . 156/ 77 . . RECOVERY 06:00 0.0 0.0 102 . 172/ 73 . . RECOVERY 07:00 0.0 0.0 102 . 172/ 73 . . RECOVERY 08:00 0.0 0.0 102 . 123/ 50 . . RECOVERY 08:18 0.0 0.0 102 . 123/ 50 . . Electronically signed by : Salina Pete, 09/02/2022 17:47:00
--- NOTE | 2022-09-02 12:18 | NM_ITS ---
APPROVED REPORT Exam: Nuclear Stress Test Indication: HTN, HYPERLIPIDEMIA, FM HX, C.P., SOB, SYNCOPE, FATIGUE Patient Location: Outpatient Stress Tech: Magda Barrios [place] Tech:Olga Faye, ARRT RT (R)(N)(M) Ht: 4 ft 11 in Wt: 220 lbs Bra Size: C HR: 68 bpm BP: 147/71 mmHg BSA: 1.92 m2 TID: 1.41 BMI: 44.4 History: HTN, HYPERLIPIDEMIA, FM HX, C.P., SOB, SYNCOPE, FATIGUE Procedure: Patient exercised on Shailesh protocol 5:18 minutes and sec, resting heart rate 68 bpm, resting blood pressure 147/71 mmHg, with exercise maximum heart rate achived was 161 bpm which is 96 % of the maximum predicted heart rate and blood pressure was 172/73 mmHg. Test was stopped due to chest tightness &sob. Patient has average exercise capacity, achieved 7.0 METs of workload on treadmill, the blood pressure response to exercise was normal. Cardiac Stress and Resting SPECT Images: Cardiac Stress and Resting SPECT images were obtained using technetium 99m Myoview 31.9 mCi stress and 10.23 mCi at rest. Resting and stress imaging in supine position demonstrate a medium-sized, moderate, fixed perfusion defect in the anterior LV wall. This defect is no longer visualized with prone stress imaging. Findings are suggestive of soft tissue attenuation. There is increased transient ischemic dilatation ratio (TID 1.41) suggestive of possible balanced ischemia or multivessel disease. Gated imaging demonstrates normal LV global and regional LV systolic function. LVEF is calculated at 61%. Conclusion: Breast attenuation is present No definite fixed or reversible perfusion defect There is increased transient ischemic dilatation ratio (TID 1.41) suggestive of possible balanced ischemia or multivessel disease. Gated imaging demonstrates normal LV global and regional LV systolic function. LVEF is calculated at 61%. Electronically signed by : Salina Pete, 09/02/2022 17:51:07
== END ==
LOC: RAD 12:18
PROVIDERS: PCP Emergency Medicine; Visit Provider Emergency Medicine
DX: R07.9 Chest pain, unspecified (principal)
CPT/HCPCS: 78452; 93017; A9502

== ENCOUNTER → 2022-09-10 09:32 | Outpatient (CLI) | payer MEDICARE, OTHER, SELFPAY ==
--- NOTE | 2022-09-10 09:35 | XR_ITS ---
FINAL REPORT CLINICAL HISTORY: Lt wrist pain FINDINGS: Left wrist Three views were obtained. There is no acute fracture or dislocation. There are mild degenerative changes of the 1st carpometacarpal joint. No soft tissue abnormality is identified. IMPRESSION: No acute process. Reviewed, Interpreted and Dictated by Maverick Barnes III, MD Transcribed by Shereen Mason Authenticated and [facility]
== END ==
PROVIDERS: PCP Emergency Medicine; Visit Provider Orthopaedic Surgery
DX: M25.532 Pain in left wrist (principal)
CPT/HCPCS: 73110

== ENCOUNTER 2022-09-11 14:57 | Observation (INO) | payer MEDICARE, OTHER, SELFPAY ==
[2022-09-11] VITALS (20 sets, daily range): BP systolic 94–143; BP diastolic 55–94; PULSE 54–81; RESP 15–20; TEMP 36.7–37.1; O2SAT 91–98; BMI 46.2
--- NOTE | 2022-09-11 07:03 | IR_ITS ---
APPROVED REPORT Patient Location: [facility] Classifier: JUAN MANUEL Ferreira RT (R) PROCEDURES Left heart catheterization Left ventriculogram Selective coronary angiogram Including stent deployment to the proximal LAD Drug-eluting stent deployment to the proximal mid dominant right coronary INDICATION Coronary artery disease, Angina pectoris, High risk abnormal Myoview indicating multivessel coronary artery disease accompanied by transient ischemic dilatation Informed consent was obtained prior to the procedure. COMPLICATIONS None Estimated Blood Loss: Less than 10 mls TECHNIQUE One percent lidocaine used to anesthetize the right anterior aspect of the wrist. The right radial artery was accessed via the Seldinger technique. A 6 Frisian sheath was placed in the right radial artery. 150 mg magnesium sulfate, 800 mcg of nitroglycerin, 1mg Lidocaine and 5000 U Heparin were given through the arterial sheath. The papa catheter was also used to perform left heart catheterization, left ventriculogram and selective coronary angiogram. At the end the diagnostic angiogram therapeutic heparin was administered giving a therapeutic ACT and the guide catheter was placed in left main artery followed by Choice PT extra-support wire. A 3.5 x 22 mm Surya frontier stent was deployed at 18 kyara reducing the hemodynamically severe stenosis to 0%. ALYSSA-3 flow was present before and after the procedure. At the end the procedure the apparatus was removed and the guide catheter was placed in the right coronary followed by Choice PT support wire. A 4 mm x 38 mm Radiant frontier stent was deployed at 14 kyara reducing the stenosis to 20%. A 4 mm x 12 mm noncompliant balloon was deployed at 20 kyara in the mid and proximal portion of the stent to post dilate. Excellent angiograph results were obtained with ALYSSA-3 flow being present down the vessel before and after the procedure. At the end the procedure the apparatus was removed the sheath was removed and hemostasis was achieved using TR banding patient was transferred to the postop putting in stable condition ANGIOGRAPHIC RESULTS The left main artery Normal The left anterior descending artery Has proximal concentric 70% stenosis The circumflex artery Nondominant normal The right coronary artery Dominant with a proximal to mid vessel 60 to 70% stenosis followed by an additional 20 to 30% stenosis The AZUL ventriculogram reveals Normal 65% The left ventricular end-diastolic pressure 15 mmHg IMPRESSION Severe two-vessel coronary disease involving the proximal LAD and proximal to mid dominant right coronary which explains the transient ischemic dilatation on Myoview with uniform myocardial activity Successful stenting of the proximal LAD severe disease reduced to 0% with 1 drug-eluting stent Successful stenting of the proximal and mid dominant right coronary severe disease reduced to 0% with 1 drug-eluting stent Normal ejection fraction Normal left ventricular end-diastolic pressure PLAN 1. Dual antiplatelet therapy 2. Risk factor modification 3. Avoidance of tobacco products 4. Cardiac rehabilitation 5. LDL less than 55 to be achieved with high intensity statin Electronically signed by : Paul Stratton MD 09/11/2022 10:48:10
[2022-09-11 09:01] LABS: Basophils # 0.1 K/mm3 (0-0.2); Basophils % 1.3 % (0.1-2.0); Eosinophils # 0.2 K/mm3 (0.0-0.4); Eosinophils % 2.6 % (0.1-12.0); Hematocrit 46.6 % (37.0-47.0); Hemoglobin 15.3 g/dL (12.2-16.2); Lymphocytes # 3.5 K/mm3 (0.7-4.5); Lymphocytes % 39.2 % (10-50); Mean Corpuscular HGB Conc 32.9 g/dL (31.8-35.4); Mean Corpuscular Hemoglobin 31.6 pg (27.0-31.2); Mean Corpuscular Volume 95.9 fl (81-99); Mean Platelet Volume 9.6 fl (7.4-10.4); Monocytes # 0.6 K/mm3 (0.1-1.0); Monocytes % 6.4 % (1.7-9.3); Neutrophils # 4.5 K/mm3 (1.8-7.8); Neutrophils % 50.6 % (37.0-80.0); Platelet Count 267 K/mm3 (142-424); Red Blood Count 4.86 M/mm3 (4.20-5.40); Red Cell Distribution Width 13.7 % (11.5-17.5); White Blood Count 8.8 K/mm3 (4.8-10.8)
[2022-09-11 09:11] LABS: Anion Gap 16.1 mEq/L (5-15); Blood Urea Nitrogen 19 mg/dl (7-17); Calcium 9.1 mg/dl (8.4-10.2); Carbon Dioxide 27 mmol/L (22.0-30.0); Chloride 102 mmol/L (98-107); Creatinine Clearance Estimated 50 mL/min (50-200); Estimated Glomerular Filt Rate 66 ml/min (>60); GFR (African American) 80 ML/MIN (>60); Glucose 110 mg/dl (74-100); HCG Qualitative, Serum Negative (Negative); Potassium 4.1 mmoL/L (3.5-5.1); Sodium 141 mmol/L (136-145)
[2022-09-11 09:40] LABS: INR 0.87 (0.9-1.1); Prothrombin Time 9.5 seconds (10.1-12.5)
--- NOTE | 2022-09-11 11:12 | SUR.PHASEII ---
Pt stated she was feeling nauseous and light headed, HR noted to be in the 40s on monitor, laid patient down and gave her a cold wash cloth. Notified Dr Stratton, stated to give 4mg of Zofran, see mar for details. VSS.
[2022-09-11 13:33] LABS: CATHL Activated Clotting Time 345 SEC (74-125)
--- NOTE | 2022-09-11 13:57 | SUR.PHASEII ---
pt has had 2 episodes of vagal response when sat up in bed, pt complains of nausea, hypotension noted,zofran given (see mar), MD aware, no new orders given. RN offered pt to stay overnight in hospital, pt declined. family at bedside
--- NOTE | 2022-09-11 15:12 | EXP.HP ---
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 Patient sometime are having dizziness & lightheadedness, also swelling in legs, numbness in left arm and fatigue. cardiac catheterization found Severe two-vessel coronary disease involving the proximal LAD and proximal to mid dominant right coronary which explains the transient ischemic dilatation on Myoview with uniform myocardial activity. Successful stenting of both of then. During recovery patient started c/o dizziness, and lightheadedness, stated feeling like almost passing out, got this episode twice. Admitted for observation and management of the symptoms [facility] Disclaimer: The information contained in this section may have been updated after the patient was seen, as this information can be updated by other users. Medical History Abnormal result of cardiovascular function study BMI 36.0-36.9,adult Chest pain Depression Diastolic dysfunction Dyspnea Edema HTN (hypertension) Tachycardia Typical angina Family History No significant family history Social History Smoking Status: Never smoker second hand exposure: No alcohol intake: never substance use type: denies use current occupational status: other Travel in the last 8 weeks: None household members: none housing: house current occupational exposures/hazards: No caffeine: Yes Review of Systems Review of Systems Review of systems:: pertinent systems reviewed and negative unless documented below Meds Home Medications and Allergies Home Medications Medication Instructions Recorded Confirmed Type estradiol 1 mg tablet 1 mg PO DAILY Supplement 12/08/19 09/11/22 History methylcellulose (with sugar) oral 1 tbsp PO DAILY PRN BOWELS 04/03/21 09/11/22 History powder (Citrucel (sucrose) oral powder) omeprazole 40 mg capsule,delayed 40 mg PO BID GERD 04/03/21 09/11/22 History release polyethylene glycol 3350 17 17 g PO DAILY PRN Constipation 04/03/21 09/11/22 History gram/dose oral powder (Miralax) trazodone 50 mg tablet 50 mg PO HS Insomnia 07/17/21 09/11/22 History prazosin 1 mg capsule 1 mg PO DAILY High blood pressure 07/20/21 09/11/22 History albuterol sulfate 90 mcg/actuation 1 puff inhalation Q4-6H PRN 10/15/21 09/11/22 Rx aerosol inhaler Shortness Of Breath Or Wheezing 90 days #8.5 grams aspirin 81 mg tablet,delayed 81 mg PO DAILY heart health 01/07/22 09/11/22 History release bisoprolol fumarate 5 mg tablet 5 mg PO DAILY High blood pressure 04/29/22 09/11/22 Rx #90 tabs bumetanide 2 mg tablet 2 mg PO TID PRN Heart failure #90 08/05/22 09/11/22 Rx tabs atorvastatin 10 mg tablet 10 mg PO HS Cholesterol 08/14/22 09/11/22 History escitalopram oxalate 10 mg tablet 10 mg PO DAILY mood 08/14/22 09/11/22 History spironolactone 100 mg tablet 100 mg PO DAILY fluid retention 08/14/22 09/11/22 History albuterol sulfate 5 mg/mL(0.5 %) 5 mg inhalation Q4H PRN COPD 09/11/22 09/11/22 History solution for nebulization clonazepam 0.5 mg tablet 0.5 mg PO BID Anxiety 09/11/22 09/11/22 History ticagrelor 90 mg tablet (Brilinta) 90 mg PO BID #60 tabs 09/11/22 Rx New Prescriptions to Start Prescriptions: ticagrelor [Brilinta] Paul Stratton Allergies Allergy/AdvReac Type Severity Reaction Status Date / Time No Known Allergies Allergy Verified 09/10/22 09:56 Exam Data for Last 24 hour
--- NOTE | 2022-09-11 15:16 | PC.NURSE ---
arrived by enedeliaer from label folder
[2022-09-11 18:06] LABS: Coronavirus 19, PCR Not Detected (NotDetected); Influenza A, PCR Not Detected (NotDetected); Influenza B, PCR Not Detected (NotDetected)
[2022-09-12] VITALS: PULSE 70
[2022-09-12 04:00] VITALS: BP 113/58; PULSE 50; PULSE 70; RESP 20; TEMP 36.9; O2SAT 93; BMI 45.6
[2022-09-12 06:21] LABS: Eosinophils # 0.2 K/mm3 (0.0-0.4); Monocytes # 0.4 K/mm3 (0.1-1.0); Neutrophils # 4.5 K/mm3 (1.8-7.8)
[2022-09-12 06:40] LABS: Basophils % 0.5 % (0.1-2.0); Eosinophils % 2.3 % (0.1-12.0); Hematocrit 41.8 % (37.0-47.0); Lymphocytes # 2.2 K/mm3 (0.7-4.5); Lymphocytes % 30.5 % (10-50); Mean Corpuscular HGB Conc 31.6 g/dL (31.8-35.4); Mean Corpuscular Hemoglobin 30.6 pg (27.0-31.2); Mean Corpuscular Volume 96.6 fl (81-99); Mean Platelet Volume 9.1 fl (7.4-10.4); Monocytes % 5.3 % (1.7-9.3); Neutrophils % 61.4 % (37.0-80.0); Platelet Count 207 K/mm3 (142-424); Red Blood Count 4.33 M/mm3 (4.20-5.40); Red Cell Distribution Width 13.6 % (11.5-17.5); White Blood Count 7.3 K/mm3 (4.8-10.8)
[2022-09-12 06:42] LABS: Hemoglobin 13.2 g/dL (12.2-16.2)
[2022-09-12 06:46] LABS: Chloride 107 mmol/L (98-107); Sodium 139 mmol/L (136-145)
--- NOTE | 2022-09-12 06:47 | PC.NURSE ---
Pt has not voiced any c/o to staff t/o night. Ambulating to BR with standby assist, pt tolerates well. No change to dsg to right radial from initial assessment. Call light within reach.
[2022-09-12 06:49] LABS: Alanine Aminotransferase 30 U/L (12-78); Albumin Level 3.5 g/dl (3.5-5.0); Albumin/Globulin Ratio 1.3 (1.1-1.8); Alkaline Phosphatase 56 U/L (38-126); Aspartate Amino Transferase 34 U/L (14-36); Bilirubin,Total 0.4 mg/dl (0.2-1.3); Blood Urea Nitrogen 17 mg/dl (7-17); Calcium 8.3 mg/dl (8.4-10.2); Carbon Dioxide 26 mmol/L (22.0-30.0); Creatinine Clearance Estimated 57 mL/min (50-200); Estimated Glomerular Filt Rate 76 ml/min (>60); GFR (African American) 92 ML/MIN (>60); Globulin 2.8 g/dL (1.3-3.2); Glucose 99 mg/dl (74-100); Total Protein,Serum 6.3 g/dl (6.3-8.2)
[2022-09-12 06:50] LABS: Magnesium 2.1 mg/dl (1.6-2.3)
--- NOTE | 2022-09-12 07:42 | EXP.DC.SUM ---
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 Patient sometime are having dizziness & lightheadedness, also swelling in legs, numbness in left arm and fatigue. cardiac catheterization found Severe two-vessel coronary disease involving the proximal LAD and proximal to mid dominant right coronary which explains the transient ischemic dilatation on Myoview with uniform myocardial activity. Successful stenting of both of then. During recovery patient started c/o dizziness, and lightheadedness, stated feeling like almost passing out, got this episode twice. Admitted for observation and management of the symptoms Hospital Course Hospital Course Hospital Course: This is a 51 yo F with PMHx significant for HTN, CAD with angina,? 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 cardiac catheterization found Severe two-vessel coronary disease involving the proximal LAD and proximal to mid dominant right coronary. Successful stenting procedure.? During recovery patient started c/o dizziness, and lightheadedness, stated feeling like almost passing out, got this episode twice. Admitted for observation overnight. No further episodes of dizziness or hypotension. Patient remained hemodynamically stable. Stable for discharge home. Problems were addressed as follows: Coronary artery disease, status post stenting Vasovagal episode - reviewed final report of cardiac cath, with successfully two stent placment, for LAD and RCA. Continue Brillinta and aspirin and statin. Radial insertion site remained clean, dry, and intact with no bleeding or hematoma. Resume dual antiplatelet therapy at discharge. No new medications for patient. Continue current home regimen which includes aspirin and Brilinta. Continued home regimen for blood pressure. Anxiety and depression, continued home Lexapro and trazodone daily. Close follow-up with cardiology. Exam Data for Last 24 hours Vital signs and Labs for Last 24 Hours: Temp Pulse Resp BP Pulse Ox 98.5 F 50 L 20 113/58 L 93 L 09/12/22 04:00 09/12/22 04:00 09/12/22 04:00 09/12/22 04:00 09/12/22 04:00 Laboratory Results - last 24 hr 09/11/22 08:47: WBC 8.8, RBC 4.86, Hgb 15.3, Hct 46.6, MCV 95.9, MCH 31.6 H, MCHC 32.9, RDW 13.7, Plt Count 267, MPV 9.6, Neut % (Auto) 50.6, Lymph % (Auto) 39.2, [place] % (Auto) 6.4, Eos % (Auto) 2.6, Baso % (Auto) 1.3, Neut # (Auto) 4.5, Lymph # (Auto) 3.5, [place] # (Auto) 0.6, Eos # (Auto) 0.2, Baso # (Auto) 0.1 09/11/22 08:47: PT 9.5 L, INR 0.87 L 09/11/22 08:47: Sodium 141, Potassium 4.1, Chloride 102, Carbon Dioxide 27, Anion Gap 16.1 H, BUN 19 H, Creatinine 0.90, Estimated Creat Clear 50, Estimated GFR 66, Est GFR ( Amer) 80, Glucose 110 H, Calcium 9.1 09/11/22 08:47: Serum HCG, Qual Negative 09/11/22 10:22: Activated Clotting Time 345 H* 09/11/22 18:00: SARS-CoV-2 (PCR) Not detected, Influenza A Untype (PCR) Not detected, Influenza Type B (PCR) Not detected 09/12/22 06:05: WBC 7.3, RBC 4.33, Hgb 13.2 D, Hct 41.8, MCV 96.6, MCH 30.6, MCHC 31.6 L, RDW 13.6, Plt Count 207, MPV 9.1, Neut % (Auto) 61.4, Lymph % (Auto) 30.5, [place] % (Auto) 5.3, Eos % (Auto) 2.3, Baso % (Auto) 0.5, Neut # (Auto) 4.5, Lymph # (Auto) 2.2, [place] # (Auto) 0.4, Eos # (Auto) 0.2, Baso # (Auto) 0.0 09/12/22 06:05: Sodium 139, Potassium 4.0, Chloride 107, Carbon Dioxide 26, Anion Gap 10.0, BUN 17, Creatinine 0.80, Estimated Creat Clear 57, Estimated GFR 76, Est GFR ( Amer)
[2022-09-12 08:00] VITALS: BP 116/58; PULSE 75; PULSE 77; RESP 19; TEMP 36.9; O2SAT 93
--- NOTE | 2022-09-12 09:55 | HMH.PHAINT1 ---
Pharmacy Intervention Comments: MEDICATION RECONCILIATION COMPLETED USING EXTERNAL FILL HISTORY FROM OUTSIDE PHARMACY AND LIST FROM PCP OFFICE.
--- NOTE | 2022-09-12 10:22 | PC.NURSE ---
COURTESY TECH NOTE; ROUNDED ON PT 0805, PT DENIED NEED FOR ASSISTANCE WITH DRINK, NEED TO USED THE RESTROOM, AND NEED TO REPOSITION. CALL LIGHT WITHIN REACH, NO FURTHER REQUESTS AT THIS TIME. Bryon MESA, SRNA
--- NOTE | 2022-09-12 10:25 | EXP.CARD.PN ---
Subjective Subjective Date: 09/12/22 Time: 09:30 Principal diagnosis: CAD s/p stenting Interval history: This is a 51-year-old female who presented to the hospital to undergo outpatient left cardiac catheterization. The patient had stenting to the LAD and a stent to the right coronary artery. She will be on Brilinta and aspirin for dual antiplatelet therapy. She denies any chest pain or pressure this morning. She denies any shortness of breath or edema. She denies any fever, chills, nausea, vomiting, diarrhea, PND orthopnea. She was admitted to the hospital following the procedure due to significant dizziness and presyncope following the procedure. The patient was having vasovagal responses. She never had any syncope. This morning she states her dizziness has resolved and she is feeling much better. No right radial pain or hematoma. She is ready for discharge home. Exam Data for Last 24 hours Vital signs and Labs for Last 24 Hours: Temp Pulse Resp BP Pulse Ox 98.4 F 77 19 116/58 L 93 L 09/12/22 08:00 09/12/22 08:00 09/12/22 08:00 09/12/22 08:00 09/12/22 08:00 Laboratory Results - last 24 hr 09/11/22 10:22: Activated Clotting Time 345 H* 09/11/22 18:00: SARS-CoV-2 (PCR) Not detected, Influenza A Untype (PCR) Not detected, Influenza Type B (PCR) Not detected 09/12/22 06:05: WBC 7.3, RBC 4.33, Hgb 13.2 D, Hct 41.8, MCV 96.6, MCH 30.6, MCHC 31.6 L, RDW 13.6, Plt Count 207, MPV 9.1, Neut % (Auto) 61.4, Lymph % (Auto) 30.5, [place] % (Auto) 5.3, Eos % (Auto) 2.3, Baso % (Auto) 0.5, Neut # (Auto) 4.5, Lymph # (Auto) 2.2, [place] # (Auto) 0.4, Eos # (Auto) 0.2, Baso # (Auto) 0.0 09/12/22 06:05: Sodium 139, Potassium 4.0, Chloride 107, Carbon Dioxide 26, Anion Gap 10.0, BUN 17, Creatinine 0.80, Estimated Creat Clear 57, Estimated GFR 76, Est GFR ( Amer) 92, Glucose 99, Calcium 8.3 L, Magnesium 2.1, Total Bilirubin 0.4, AST 34, ALT 30, Alkaline Phosphatase 56, Total Protein 6.3, Albumin 3.5, Globulin 2.8, Albumin/Globulin Ratio 1.3 I & O for Last 24 hours: Intake & Output 09/09/22 09/10/22 09/11/22 09/12/22 23:59 23:59 23:59 23:59 Intake Total 240 / 240 480 / 480 Output Total 0 / 0 Balance 240 / 240 480 / 480 Weight 229 lb 226 lb 9.6 oz Constitutional Constitutional: no acute distress and morbidly obese *Routine HEENT Exam Head: Present normocephalic and atraumatic ENT: Present mucous membranes moist *Routine Neck Exam Neck: Present supple, full ROM and normal carotid upstroke; Absent JVD, carotid bruit or lymphadenopathy *Routine Respiratory Exam Respiratory: Present CTA bilaterally, normal respiratory effort, able to speak in complete sentences and symmetric chest movement *Routine Cardiovascular Exam Cardiovascular: Present RRR, Normal S1 and Normal S2; Absent murmur or gallop *Routine Abdominal Exam Abdominal: Present soft and normoactive bowel sounds; Absent tenderness, distended or organomegaly *Routine Extremities Exam Extremities: Present full ROM, pulses intact and normal capillary refill; Absent cyanosis, clubbing or edema *Routine Skin Exam Skin: Present intact and warm; Absent erythema *Routine Neurological Exam Neurological: Present alert, oriented X3 and CN II-XII intact; Absent sensory deficit or motor deficit Routine Psychiatric Exam Psychiatric: Present normal affect Progress Note: A&P Assessment and plan (1) Coronary artery disease: Status: Acute (2) Stented coronary artery: Status: Acute (3) Vaso vagal episode: Status: Acute (4) Abnormal result of cardiovascular function study: Status: Acute (5) HTN (hypertension): Status: Chronic (6) HHD (hypertensive heart disease): Status: Chronic (7) Diastolic dysfunction: Status: Chronic (8) Morbidly obese: Status: Acute (9) Hyperlipidemia associated with type 2 diabetes mellitus: Status: Acute Assessment and Plan Assessment and Plan for All Diagnoses:: Plan: 1. This is a 51-
--- NOTE | 2022-09-12 12:20 | HMH.PHACL ---
[facility] [employer] Supervisor: Jessica Sawyer has received discharge medication counseling on the following medications: ASPIRIN 81 MG DAILY ATORVASTATIN 10 MG HS BISOPROLOL 5 MG DAILY BRILINTA 90 MG BID MD DOES NOT WANT TO START CATINA/ARB AT THIS TIME DUE TO LOW BLOOD PRESSURE.
== END 2022-09-12 12:31 | disposition home or self-care (01) ==
LOC: 2ND 14:57
PROVIDERS: Internal Medicine; Admitting Provider Internal Medicine Adolescent Medicine; PCP Emergency Medicine; Visit Provider Internal Medicine Adolescent Medicine
DX: I25.118 Atherosclerotic heart disease of native coronary artery with other forms of angina pectoris; I11.9 Hypertensive heart disease without heart failure; R06.02 Shortness of breath; R60.9 Edema, unspecified; R94.30 Abnormal result of cardiovascular function study, unspecified; Z79.899 Other long term (current) drug therapy
CPT/HCPCS: G0378; 36415; 80048; 80053; 83735; 84703; 85025; 85347; 85610; 87636; 92928; 93308; 93458; 99152; C1725; C1769; C1876; C9600; C9803; J1644; J2405; Q9967; U0003; U0005

== ENCOUNTER → 2022-09-26 11:36 | Outpatient (POV) | payer MEDICARE, OTHER, SELFPAY ==
--- NOTE | 2022-09-26 11:39 | EXP.PAIN.SOA ---
[facility] Pain Management SOAP Note Subjective:: Patient is a pleasant 51-year-old female who presents today for follow-up of cervical epidural steroid injection of C6-C7 on 08/27/2022. We are currently treating the patient for degenerative disc disease of cervical and lumbar spine with cervical neuropathy symptoms, low back pain, cervical spinal stenosis. Today she rates her pain a 6 out of 10. Patient denies any new trauma or injury. Patient denies any change location or type of pain she experiences. She does state that she has had at least 50% improvement with this epidural injection and feels like she is still getting some relief. Patient does state that it has started to fade but is still tolerable. She does state her pain is more prominent in her low back and legs today. Patient does describe this as an aching sensation that is worse with increased activity. It does interfere with her ability to perform activities of daily living such as cooking and cleaning or even simple ambulation. Patient has tried [id number] medications such as Tylenol and ibuprofen along with heat and ice and topicals with no additional relief. Patient states from our last visit she has had to have cardiac stents placed and was started on a blood thinner. Patient does see Dr. Stratton's office for her cardiac related issues. She is currently prescribed clonazepam 0.5 mg twice a day from Dr. Rao's office. Her Alex is [phone]. Its been reviewed and appropriate. Review of Systems: General: No recent weight changes, no fever, no sleep disturbances Respiratory: No cough, no shortness of air, no recurring pulmonary infections Cardiovascular/peripheral vascular: No chest pain, no palpitations, no edema, no shortness of breath Gastrointestinal: No new onset incontinence, normal bowel movements reported Genitourinary: No new onset incontinence Musculoskeletal: Low back pain, bilateral leg pain Psychiatric: [Normal mood/affect] Neurological: [Denies weakness in extremities], [denies balance issues] Objective:: Physical Exam: General: Alert and oriented x3, no acute distress, pleasant and cooperative Lungs: Respirations even and unlabored, symmetrical chest expansion Eyes: PERRL Musculoskeletal: Flexion and extension of lumbar [spine] somewhat guarded secondary to pain, [antalgic gait noted] Neurological: Speech clear, no gross sensory deficit Assessment:: Degenerative disc disease of cervical and lumbar spine with cervical and lumbar radiculopathy symptoms, low back pain, spinal stenosis cervical spine Plan:: Patient is experiencing worsening pain in her low back and legs with limited range of motion. I have discussed with the patient that she may benefit from a lumbar epidural steroid injection. Risk and benefits were discussed with the patient and she would like to proceed forward with this plan of care. Patient is currently on Brilinta that is prescribed by Dr. Stratton's office. We will contact his office and confirm that she can stop this medication prior to this injection. Patient has tried and failed conservative therapy such as oral medications, heat and ice, topicals, physical therapy, at home exercise and stretching for longer than 6 weeks. Patient's previous MRI imaging of her lumbar spine did show multilevel degenerative disc disease with areas of neuroforaminal narrowing and disc protrusion at L5-S1. We will schedule the patient for an LESI L5-S1. Patient has been instructed to contact the clinic with any concerns before the next appointment. Dr. Kirk has reviewed this note and agrees with this plan of care. This note was dictated using voice recognition software and make contain errors or omissions. [facility] Disclaimer: The information contained in this section may have been updated after the patient was seen, as this information can be updated by other users. Medical History (Updated 09/16/22 @ 16:12 by Amy Quinteros APRN) Abnormal result of cardiovas
[2022-09-26 11:49] VITALS: BP 145/62; PULSE 85; RESP 18; O2SAT 96; BMI 45.4
== END ==
PROVIDERS: PCP Emergency Medicine; Visit Provider Nurse Practitioner Family
DX: M50.10 Cervical disc disorder with radiculopathy, unspecified cervical region (principal); M51.16 Intervertebral disc disorders with radiculopathy, lumbar region; M54.50 Low back pain, unspecified; M48.02 Spinal stenosis, cervical region
CPT/HCPCS: 99212; G0463

== ENCOUNTER → 2022-10-16 14:58 | Outpatient (POV) | payer MEDICARE, OTHER, SELFPAY ==
--- NOTE | 2022-10-16 15:04 | EXP.PAIN.SOA ---
[facility] Pain Management SOAP Note Subjective:: Patient is a pleasant 51-year-old female who presents today for follow-up. We are currently treating the patient for degenerative disc disease of cervical and lumbar spine with cervical and lumbar radiculopathy symptoms, low back pain, cervical spinal stenosis. Today she rates her pain an 8 out of 10. Patient was recently seen and we were planning on doing an epidural however she has not been able to come off her blood thinners due to having a recent stent placed. Patient denies any other injury or change to the location or type of pain she experiences. Patient is currently managed with clonazepam 0.5 mg twice a day from Dr. Rao's office. She denies any side effects from this medication. Her Alex is [id number]. Its been reviewed and appropriate. Review of Systems: General: No recent weight changes, no fever, no sleep disturbances Respiratory: No cough, no shortness of air, no recurring pulmonary infections Cardiovascular/peripheral vascular: No chest pain, no palpitations, no edema, no shortness of breath Gastrointestinal: No new onset incontinence, normal bowel movements reported Genitourinary: No new onset incontinence Musculoskeletal: Neck pain, low back pain Psychiatric: [Normal mood/affect] Neurological: [Denies weakness in extremities], [denies balance issues] Objective:: Physical Exam: General: Alert and oriented x3, no acute distress, pleasant and cooperative Lungs: Respirations even and unlabored, symmetrical chest expansion Eyes: PERRL Musculoskeletal: Flexion and extension of lumbar [spine] somewhat guarded secondary to pain, [antalgic gait noted] Neurological: Speech clear, no gross sensory deficit Assessment:: Degenerative disc disease of cervical and lumbar spine with cervical and lumbar radiculopathy symptoms, low back pain, cervical spinal stenosis Plan:: Patient continues to experience significant pain in her neck and low back however she is unable to come off her blood thinners for any injective therapy at this time. I will send in prescriptions for methocarbamol 500 mg twice daily and tizanidine 4 mg at bedtime as well as prednisone 20 mg twice daily for 5 days. Patient will return to clinic in 1 month for reevaluation of symptoms and possible medication refill if indicated. Patient has been instructed to contact the clinic with any concerns before the next appointment. Dr. Kirk has reviewed this note and agrees with this plan of care. This note was dictated using voice recognition software and make contain errors or omissions. [facility] Disclaimer: The information contained in this section may have been updated after the patient was seen, as this information can be updated by other users. Medical History (Updated 09/16/22 @ 16:12 by Amy Quinteros APRN) Abnormal result of cardiovascular function study BMI 36.0-36.9,adult Chest pain Coronary artery disease Depression Diastolic dysfunction Dyspnea Edema HTN (hypertension) Hyperlipidemia Hyperlipidemia associated with type 2 diabetes mellitus Morbidly obese Tachycardia Typical angina Family History Other No significant family history Social History Smoking Status: Never smoker second hand exposure: No alcohol intake: never substance use type: denies use current occupational status: other Travel in the last 8 weeks: None household members: none housing: house current occupational exposures/hazards: No caffeine: Yes
[2022-10-16 15:35] VITALS: BP 124/70; PULSE 72; RESP 18; O2SAT 96; BMI 45.3
== END | disposition home or self-care (01) ==
PROVIDERS: PCP Emergency Medicine; Visit Provider Nurse Practitioner Family
DX: M50.10 Cervical disc disorder with radiculopathy, unspecified cervical region (principal); M51.16 Intervertebral disc disorders with radiculopathy, lumbar region; M54.50 Low back pain, unspecified; M48.02 Spinal stenosis, cervical region
CPT/HCPCS: 99212; G0463

== ENCOUNTER → 2022-10-21 08:38 | Outpatient (CLI) | payer MEDICARE, SELFPAY ==
[2022-10-21 08:53] LABS: Basophils # 0.1 K/mm3 (0-0.2); Basophils % 0.7 % (0.1-2.0); Eosinophils # 0.1 K/mm3 (0.0-0.4); Hematocrit 42.9 % (37.0-47.0); Hemoglobin 13.8 g/dL (12.2-16.2); Lymphocytes # 4.2 K/mm3 (0.7-4.5); Lymphocytes % 37.8 % (10-50); Mean Corpuscular HGB Conc 32.3 g/dL (31.8-35.4); Mean Corpuscular Hemoglobin 31.3 pg (27.0-31.2); Mean Corpuscular Volume 96.9 fl (81-99); Mean Platelet Volume 9.2 fl (7.4-10.4); Monocytes # 0.7 K/mm3 (0.1-1.0); Monocytes % 6.3 % (1.7-9.3); Neutrophils % 54.1 % (37.0-80.0); Platelet Count 290 K/mm3 (142-424); Red Blood Count 4.43 M/mm3 (4.20-5.40); Red Cell Distribution Width 13.7 % (11.5-17.5); White Blood Count 11.1 K/mm3 (4.8-10.8)
[2022-10-21 09:59] LABS: Free T4 (Free Thyroxine) 0.89 ng/dl (0.78-2.19)
[2022-10-21 10:13] LABS: Alanine Aminotransferase 29 U/L (12-78); Albumin Level 4.2 g/dl (3.5-5.0); Alkaline Phosphatase 64 U/L (38-126); Anion Gap 9.8 mEq/L (5-15); Aspartate Amino Transferase 26 U/L (14-36); Bilirubin,Indirect 0.2 mg/dL (0.0-0.9); Bilirubin,Total 0.2 mg/dl (0.2-1.3); Bilirubin,Unconjugated 0.4 mg/dL (0.0-1.1); Blood Urea Nitrogen 21 mg/dl (7-17); Carbon Dioxide 29 mmol/L (22.0-30.0); Chloride 104 mmol/L (98-107); Chol/HDL Ratio 2.3 (1-3.5); Cholesterol 157 mg/dl (140-200); Estimated Glomerular Filt Rate 58 ml/min (>60); GFR (African American) 70 ML/MIN (>60); Glucose 96 mg/dl (74-100); HDL Cholesterol 67 mg/dl (40-60); Potassium 3.8 mmoL/L (3.5-5.1); Sodium 139 mmol/L (136-145); Total Protein,Serum 6.9 g/dl (6.3-8.2); Triglycerides 135 mg/dl (30-150); VLDL Cholesterol 27 mg/dL (0-40)
[2022-10-21 10:25] LABS: Direct LDL Cholesterol 68.48 mg/dL (100-129)
[2022-10-21 10:44] LABS: Thyroid Stimulating Hormone 0.67 uIU/mL (0.465-4.68)
== END ==
PROVIDERS: PCP Emergency Medicine; Visit Provider Internal Medicine
DX: R06.00 Dyspnea, unspecified; I25.10 Atherosclerotic heart disease of native coronary artery without angina pectoris; I11.9 Hypertensive heart disease without heart failure; E78.5 Hyperlipidemia, unspecified; F32.9 Major depressive disorder, single episode, unspecified; E11.9 Type 2 diabetes mellitus without complications; I63.9 Cerebral infarction, unspecified
CPT/HCPCS: 80048; 80061; 80076; 84439; 84443; 85025

== ENCOUNTER → 2022-11-14 09:31 | Outpatient (POV) | payer MEDICARE, SELFPAY ==
[2022-11-14 09:49] VITALS: BP 125/62; PULSE 73; RESP 18; O2SAT 96; BMI 38.3
--- NOTE | 2022-11-14 10:07 | EXP.PAIN.SOA ---
[facility] Pain Management SOAP Note Subjective:: Patient is a pleasant 52-year-old female who presents today for medication refill and follow-up. We are currently treating the patient for degenerative disc disease of cervical and lumbar spine with cervical and lumbar radiculopathy symptoms, low back pain, cervical spinal stenosis. Today she rates her pain an 8 out of 10. Patient denies any new trauma or injury. Patient did previously get injective therapy however she had a cardiac stent placed on September 11 of this year and is not able to come off her blood thinners for 6 months. Patient is currently managed with clonazepam 0.5 mg twice a day from Dr. aRo's office and tizanidine 4 mg at bedtime and methocarbamol 500 mg twice a day from our office. Patient denies any side effects from these medications. Her Alex is [id number]. Its been reviewed and appropriate. Review of Systems: General: No recent weight changes, no fever, no sleep disturbances Respiratory: No cough, no shortness of air, no recurring pulmonary infections Cardiovascular/peripheral vascular: No chest pain, no palpitations, no edema, no shortness of breath Gastrointestinal: No new onset incontinence, normal bowel movements reported Genitourinary: No new onset incontinence Musculoskeletal: Low back pain, bilateral leg pain Psychiatric: [Normal mood/affect] Neurological: [Denies weakness in extremities], [denies balance issues] Objective:: Physical Exam: General: Alert and oriented x3, no acute distress, pleasant and cooperative Lungs: Respirations even and unlabored, symmetrical chest expansion Eyes: PERRL Musculoskeletal: Flexion and extension of lumbar [spine] somewhat guarded secondary to pain, [antalgic gait noted] Neurological: Speech clear, no gross sensory deficit Assessment:: Degenerative disc disease of cervical and lumbar spine with cervical and lumbar radiculopathy symptoms, low back pain, cervical spinal stenosis Plan:: Patient continues to experience significant pain in her low back with limited range of motion however due to her recent stent placed she is unable to have injective therapy until around February of this year. I will refill the patient's tizanidine 4 mg at bedtime and methocarbamol 500 mg twice daily and provide a 2-month supply of these medications. Patient will return to clinic in 2 months for reevaluation of symptoms and plan of care. Patient has been instructed to contact the clinic with any concerns before the next appointment. Dr. Kirk has reviewed this note and agrees with this plan of care. This note was dictated using voice recognition software and make contain errors or omissions. [facility] Disclaimer: The information contained in this section may have been updated after the patient was seen, as this information can be updated by other users. Medical History Abnormal result of cardiovascular function study BMI 36.0-36.9,adult Chest pain Coronary artery disease Depression Diastolic dysfunction Dyspnea Edema HTN (hypertension) Hyperlipidemia Hyperlipidemia associated with type 2 diabetes mellitus Morbidly obese Tachycardia Typical angina Family History Other No significant family history Social History Smoking Status: Never smoker second hand exposure: No alcohol intake: never substance use type: denies use current occupational status: other Travel in the last 8 weeks: None household members: none housing: house current occupational exposures/hazards: No caffeine: Yes
== END | disposition home or self-care (01) ==
PROVIDERS: PCP Emergency Medicine; Visit Provider Nurse Practitioner Family
DX: M50.10 Cervical disc disorder with radiculopathy, unspecified cervical region (principal); M51.16 Intervertebral disc disorders with radiculopathy, lumbar region; M48.02 Spinal stenosis, cervical region
CPT/HCPCS: 99212; G0463

== ENCOUNTER 2023-01-09 13:01 | Emergency (ER) | payer MEDICARE, SELFPAY ==
[2023-01-09 13:01] VITALS: BP 143/85; PULSE 77; RESP 18; TEMP 36.8; O2SAT 95; BMI 43.4
--- NOTE | 2023-01-09 13:29 | EXP.UTC ---
Discharge Plan Disposition Patient Disposition: Home, Self-Care Condition: Good Prescriptions Prescriptions: New amoxicillin-pot clavulanate 875-125 mg Tablet 1 tab PO Q12H Qty: 20 0RF erythromycin 5 mg/gram (0.5 %) ointment 1 cm ophthalmic (eye) QID 7 Days Qty: 3.5 0RF No Action estradiol 1 mg tablet 1 mg PO DAILY Patient Comments: TAKE 1 TABLET BY MOUTH EVERY DAY prazosin 1 mg capsule 1 mg PO DAILY omeprazole 40 mg capsule,delayed release(DR/EC) 40 mg PO BID polyethylene glycol 3350 [Miralax] 17 gram/dose powder 17 g PO DAILY PRN (Reason: Constipation) Citrucel (sucrose) Powder 1 tbsp PO DAILY PRN (Reason: Constipation) trazodone 50 mg tablet 50 mg PO HS bisoprolol fumarate 5 mg tablet 5 mg PO DAILY Qty: 90 3RF escitalopram oxalate 10 mg tablet See Rx Instructions .ROUTE .COMPLEX Qty: 90 0RF Dose Instruction: TAKE 1 TABLET BY MOUTH ONCE DAILY Rx Instructions: TAKE 1 TABLET BY MOUTH ONCE DAILY albuterol sulfate 5 mg/mL solution for nebulization 5 mg INHALATION Q4H PRN (Reason: COPD) Qty: 4500 2RF albuterol sulfate 90 mcg/actuation HFA aerosol inhaler 1 puff INHALATION Q4-6H PRN (Reason: Shortness Of Breath Or Wheezing) 90 Days Qty: 8.5 2RF aspirin 81 mg tablet,delayed release (DR/EC) 81 mg PO DAILY clonazepam 0.5 mg tablet 0.5 mg PO BID bumetanide 2 mg tablet 2 mg PO TID PRN (Reason: Heart failure) Rx Instructions: Take 2 mg twice a day and may take extra 2 mg prn for swelling. Brilinta 90 mg tablet 90 mg PO BID atorvastatin 10 mg tablet See Rx Instructions .ROUTE .COMPLEX Rx Instructions: TAKE 1 TABLET BY MOUTH AT BEDTIME NIGHTLY methocarbamol 500 mg tablet 500 mg PO BID Qty: 60 1RF tizanidine [Zanaflex] 4 mg tablet 4 mg PO HS Qty: 30 1RF spironolactone 100 mg tablet 100 mg PO DAILY Referrals Follow up/Referrals: Arben Rao MD [Primary Care Provider] - See instructions Activity Restrictions/Add. Instructions Additional Instructions/Restrictions: Use the eye ointment as directed. Take the oral antibiotics as directed. Apply warm wet compresses to your right eye 3 or 4 times per day for the next week or so. Follow up with your regular doctor. GO TO THE ER FOR ANY WORSENING SYMPTOMS OR CONCERNS Clinical Impressions Clinical Impression: Hordeolum externum of right lower eyelid Instructions Patient Instructions: DI for Hordeolum, Erythromycin Ophthalmic Discharge ED Provider: Kaveh Hawkins [facility] General Stated complaint: right eye pain Mode of Arrival: Ambulatory Source of Information: Patient Limitations: No Limitations Time Seen by Provider: 01/09/23 13:29 Description of Symptoms (Recalled from Triage Doc. by RN): Right eye swollen. She thinks she has a stye in her right eye. HEENT Symptoms (Recalled from RN notes): Yes Resp Symptoms (Recalled from RN notes): No Skin Symptoms (Recalled from RN notes): No MS Symptoms (Recalled from RN notes): No Functional Status (Recalled from RN notes): n/a History of Present Illness Provider Complaint: She states that for the past 3 days she has had right lower eye lid swelling and tenderness. She denies any foreign body or injury. Related Data Home Medications Medication Instructions Recorded Confirmed estradiol 1 mg tablet 1 mg PO DAILY Supplement 12/08/19 01/09/23 methylcellulose (with sugar) oral 1 tbsp PO DAILY PRN Constipation 04/03/21 11/14/22 powder (Citrucel (sucrose) oral powder) omeprazole 40 mg capsule,delayed 40 mg PO BID Acid reflux 04/03/21 11/14/22 release polyethylene glycol 3350 17 17 g PO DAILY PRN Constipation 04/03/21 11/14/22 gram/dose oral powder (Miralax) trazodone 50 mg tablet 50 mg PO HS Insomnia 07/17/21 01/09/23 prazosin 1 mg capsule 1 mg PO DAILY High blood pressure 07/20/21 11/14/22 aspirin 81 mg tablet,delayed 81 mg PO DAILY Hea
[2023-01-09 13:54] VITALS: BP 143/85; PULSE 77; RESP 18; TEMP 36.8; O2SAT 95
== END 2023-01-09 13:54 | disposition home or self-care (01) ==
PROVIDERS: Emergency Provider Nurse Practitioner Family; PCP Emergency Medicine
DX: H00.012 Hordeolum externum right lower eyelid (principal); J44.9 Chronic obstructive pulmonary disease, unspecified; I25.10 Atherosclerotic heart disease of native coronary artery without angina pectoris; I11.9 Hypertensive heart disease without heart failure; E78.5 Hyperlipidemia, unspecified; E66.01 Morbid (severe) obesity due to excess calories; F32.A Depression, unspecified
CPT/HCPCS: 99212; 99214; G0463

== ENCOUNTER → 2023-01-15 09:18 | Outpatient (POV) | payer MEDICARE, SELFPAY ==
--- NOTE | 2023-01-15 09:25 | EXP.PAIN.SOA ---
[facility] Pain Management SOAP Note Subjective:: Patient is a pleasant 52-year-old female who presents today for medication refill and 2 month follow-up. We are currently treating the patient for degenerative disc disease of cervical and lumbar spine with cervical and lumbar radiculopathy symptoms, low back pain, cervical spinal stenosis. Today she rates her pain an 8 out of 10. Patient denies any new trauma or injury. Patient had a cardiac stent placed in August and is unable to have any additional injective therapy until February when she will be able to come off her blood thinners as needed. She does state today that she is having to repeat another stress test so it may end up being even longer before she can have injections. She states the muscle relaxers do help however she continues to have yearly aches and pains that makes activities of daily living hard to perform. Patient is currently managed with clonazepam 0.5 mg twice a day from Dr. Rao's office and tizanidine 4 mg at bedtime and methocarbamol 500 mg twice a day from our office. Patient denies any side effects from these medications. Her Alex has been reviewed and is appropriate. Review of Systems: General: No recent weight changes, no fever, no sleep disturbances Respiratory: No cough, no shortness of air, no recurring pulmonary infections Cardiovascular/peripheral vascular: No chest pain, no palpitations, no edema, no shortness of breath Gastrointestinal: No new onset incontinence, normal bowel movements reported Genitourinary: No new onset incontinence Musculoskeletal: Low back pain, bilateral leg pain Psychiatric: [Normal mood/affect] Neurological: [Denies weakness in extremities], [denies balance issues] Objective:: Physical Exam: General: Alert and oriented x3, no acute distress, pleasant and cooperative Lungs: Respirations even and unlabored, symmetrical chest expansion Eyes: PERRL Musculoskeletal: Flexion and extension of lumbar [spine] somewhat guarded secondary to pain, [antalgic gait noted] Neurological: Speech clear, no gross sensory deficit Assessment:: Degenerative disc disease of cervical and lumbar spine with cervical and lumbar radiculopathy symptoms, low back pain, cervical spinal stenosis Plan:: I will refill the patient's tizanidine 4 mg at bedtime and methocarbamol 500 mg twice a day and provide a 2-month supply of this medication. Patient's last lab work did show lowered kidney function. I have reviewed this with the patient and she states she is scheduled to go downstairs after our appointment and have new labs drawn. I have counseled the patient that I will start her on Tylenol 3 daily and provide 45 tablets. Patient will return to clinic in 1 month for reevaluation of symptoms and medication refill. Patient has been instructed to contact the clinic with any concerns before the next appointment. Dr. Kirk has reviewed this note and agrees with this plan of care. This note was dictated using voice recognition software and make contain errors or omissions. [facility] Disclaimer: The information contained in this section may have been updated after the patient was seen, as this information can be updated by other users. Medical History Abnormal result of cardiovascular function study Asthma BMI 36.0-36.9,adult Chest pain COPD (chronic obstructive pulmonary disease) Coronary artery disease Depression Diastolic dysfunction Dyspnea Edema HTN (hypertension) Hyperlipidemia Hyperlipidemia associated with type 2 diabetes mellitus Morbidly obese Tachycardia Typical angina Family History Other No significant family history Social History Smoking Status: Never smoker second hand exposure: No alcohol intake: never substance use type: denies use current occupational status: other Travel in the last
[2023-01-15 12:31] VITALS: BP 124/61; PULSE 72; RESP 18; O2SAT 93; BMI 46.6
== END | disposition home or self-care (01) ==
PROVIDERS: PCP Emergency Medicine; Visit Provider Nurse Practitioner Family
DX: M50.10 Cervical disc disorder with radiculopathy, unspecified cervical region (principal); M48.02 Spinal stenosis, cervical region; M51.16 Intervertebral disc disorders with radiculopathy, lumbar region
CPT/HCPCS: 99212; G0463

== ENCOUNTER → 2023-01-15 09:44 | Outpatient (CLI) | payer MEDICARE, SELFPAY ==
[2023-01-15 10:07] LABS: Basophils # 0.1 K/mm3 (0-0.2); Basophils % 1.2 % (0.1-2.0); Eosinophils # 0.2 K/mm3 (0.0-0.4); Eosinophils % 2.3 % (0.1-12.0); Hematocrit 42.3 % (37.0-47.0); Hemoglobin 15.3 g/dL (12.2-16.2); Lymphocytes # 2.5 K/mm3 (0.7-4.5); Mean Corpuscular HGB Conc 36.2 g/dL (31.8-35.4); Mean Corpuscular Hemoglobin 33.8 pg (27.0-31.2); Mean Corpuscular Volume 93.3 fl (81-99); Monocytes # 0.5 K/mm3 (0.1-1.0); Monocytes % 7.2 % (1.7-9.3); Neutrophils # 3.8 K/mm3 (1.8-7.8); Neutrophils % 54.3 % (37.0-80.0); Platelet Count 270 K/mm3 (142-424); Red Blood Count 4.53 M/mm3 (4.20-5.40); Red Cell Distribution Width 13.3 % (11.5-17.5)
[2023-01-15 10:53] LABS: Chloride 102 mmol/L (98-107)
[2023-01-15 10:54] LABS: Sodium 140 mmol/L (136-145)
[2023-01-15 10:56] LABS: Alanine Aminotransferase 40 U/L (12-78); Alkaline Phosphatase 82 U/L (38-126); Aspartate Amino Transferase 43 U/L (14-36); Bilirubin,Direct 0.2 mg/dl (0.0-0.4); Bilirubin,Total 0.2 mg/dl (0.2-1.3); Blood Urea Nitrogen 16 mg/dl (7-17); Carbon Dioxide 27 mmol/L (22.0-30.0); Cholesterol 156 mg/dl (140-200); Estimated Glomerular Filt Rate 66 ml/min (>60); GFR (African American) 80 ML/MIN (>60); Triglycerides 168 mg/dl (30-150); VLDL Cholesterol 34 mg/dL (0-40)
[2023-01-15 10:57] LABS: Albumin Level 4.4 g/dl (3.5-5.0); Calcium 9.5 mg/dl (8.4-10.2); Chol/HDL Ratio 3.2 (1-3.5); Glucose 108 mg/dl (74-100); HDL Cholesterol 49 mg/dl (40-60); Magnesium 1.6 mg/dl (1.6-2.3); Total Protein,Serum 7.4 g/dl (6.3-8.2)
[2023-01-15 11:05] LABS: NT Pro Brain Natriuretic Pep. 46.8 pg/mL (0-125)
[2023-01-15 11:08] LABS: Direct LDL Cholesterol 71.36 mg/dL (100-129)
[2023-01-15 11:18] LABS: Free T4 (Free Thyroxine) 0.93 ng/dl (0.78-2.19)
[2023-01-15 11:27] LABS: Thyroid Stimulating Hormone 0.97 uIU/mL (0.465-4.68)
== END ==
PROVIDERS: PCP Emergency Medicine; Visit Provider Physician Assistant
DX: R06.09 Other forms of dyspnea; I25.10 Atherosclerotic heart disease of native coronary artery without angina pectoris; I11.9 Hypertensive heart disease without heart failure; R60.9 Edema, unspecified; E78.5 Hyperlipidemia, unspecified; Z95.5 Presence of coronary angioplasty implant and graft
CPT/HCPCS: 36415; 80048; 80061; 80076; 83735; 83880; 84439; 84443; 85025; 99212; G0463

== ENCOUNTER → 2023-02-12 09:11 | Outpatient (POV) | payer MEDICARE, SELFPAY ==
[2023-02-12 09:29] VITALS: BP 127/74; PULSE 73; RESP 18; O2SAT 94; BMI 37.0
--- NOTE | 2023-02-12 09:29 | EXP.PAIN.SOA ---
[facility] Pain Management SOAP Note Subjective:: Patient is a pleasant 52-year-old female who presents today for 1 month follow-up. We are currently treating the patient for degenerative disc disease of cervical and lumbar spine with cervical and lumbar radiculopathy symptoms, low back pain, cervical spinal stenosis. Today she rates her pain an 8 out of 10. Patient denies any new trauma or injury from her last visit. She does state that she is having to have a stress test coming up because they do not believe one of her stents is working properly. Patient states that she does not have an exact date for this procedure yet. Patient is currently managed with clonazepam 0.5 mg twice a day from Dr. Rao's office and tizanidine 4 mg at bedtime, methocarbamol 500 mg twice a day and Tylenol 3 daily. Patient denies any side effects from this medication. She does state that the Tylenol 3 made a significant difference in her day-to-day pain levels. She is requesting a refill. Her Alex has been reviewed and is appropriate. Review of Systems: General: No recent weight changes, no fever, no sleep disturbances Respiratory: No cough, no shortness of air, no recurring pulmonary infections Cardiovascular/peripheral vascular: No chest pain, no palpitations, no edema, no shortness of breath Gastrointestinal: No new onset incontinence, normal bowel movements reported Genitourinary: No new onset incontinence Musculoskeletal: Low back pain Psychiatric: [Normal mood/affect] Neurological: [Denies weakness in extremities], [denies balance issues] Objective:: Physical Exam: General: Alert and oriented x3, no acute distress, pleasant and cooperative Lungs: Respirations even and unlabored, symmetrical chest expansion Eyes: PERRL Musculoskeletal: Flexion and extension of lumbar [spine] somewhat guarded secondary to pain, [antalgic gait noted] Neurological: Speech clear, no gross sensory deficit Assessment:: Degenerative disc disease of cervical and lumbar spine with cervical and lumbar radiculopathy symptoms, low back pain, cervical spinal stenosis Plan:: I will refill the patient's tizanidine 4 mg at bedtime, methocarbamol 500 mg twice a day and Tylenol 3 daily and provide a 1 month supply of these medications. Patient will return to clinic in 1 month for reevaluation of symptoms and medication refill. Patient has been advised of risks of oversedation with the prescribed medication. Brittany has been offered to the patient in the event of oversedation. Patient has been advised that a family member should also be educated regarding administration of Narcan. Patient has been instructed to contact the clinic with any concerns before the next appointment. Dr. Kirk has reviewed this note and agrees with this plan of care. This note was dictated using voice recognition software and make contain errors or omissions. [facility] Disclaimer: The information contained in this section may have been updated after the patient was seen, as this information can be updated by other users. Medical History (Updated 01/20/23 @ 09:01 by Arben Rao MD) Abnormal result of cardiovascular function study Asthma BMI 36.0-36.9,adult Chest pain COPD (chronic obstructive pulmonary disease) Coronary artery disease Depression Diastolic dysfunction Dyspnea Edema HTN (hypertension) Hyperlipidemia Hyperlipidemia associated with type 2 diabetes mellitus Morbidly obese Tachycardia Typical angina Family History Other No significant family history Social History Smoking Status: Never smoker second hand exposure: No alcohol intake: never substance use type: denies use current occupational status: employed Travel in the last 8 weeks: None household members: none housing: house current occupational exposures/hazards: No caffeine: Yes
== END | disposition home or self-care (01) ==
PROVIDERS: PCP Emergency Medicine; Visit Provider Nurse Practitioner Family
DX: M50.10 Cervical disc disorder with radiculopathy, unspecified cervical region (principal); M51.16 Intervertebral disc disorders with radiculopathy, lumbar region; M48.02 Spinal stenosis, cervical region
CPT/HCPCS: 99212; G0463

== ENCOUNTER → 2023-02-27 06:37 | Outpatient (CLI) | payer MEDICARE, SELFPAY ==
--- NOTE | 2023-02-27 06:39 | CA_ITS ---
APPROVED REPORT Exam: Pharmacologic Technologist: Jyoti Harvey, Ht: 4 ft 11 in Wt: 232 lbs BSA: 1.96 m2 HR: 65 bpm BP: 124/75 mmHg Rhythm: NSR Medical History Medications: Omeprazole,,,,, Aspirin,,,,, Atorvastatin,,,,, ClonAZEPAM,,,,, Albuterol,,,,, Estradiol,,,,, Zanaflex,,,,, BRILINTA,,,,, BisOPROLOL Fumarate,,,,, PraZOSIN,,,,, SpirOnolactone,,,,, Trazodone,,,,, Stress Test Details Test: LEXISCAN Reason for pharmacologic stress test: physical limitation. HR Resting HR: 68 bpm Max Heart Rate (APMHR): 168 bpm Max HR Achieved: 96 bpm Target HR (85% APMHR): 143 bpm % of APMHR: 57 Recovery HR: 75 bpm BP Resting BP: 124.0/75.0 mmHg Max BP: 130.0/69.0 mmHg Recovery BP: 117.0/67.0 mmHg ECG Resting ECG: NSR, PVCs Stress ECG: No significant ST changes Arrhythmia: PVCs Clinical Exercise duration: 04:01 min Highest Stage Achieved: Stress ECG Conclusion Symptoms: SOA, mild chest pressure, mild stomach & head discomfort. Arrhythmias/Ectopy: PVCs ST-T Changes: No significant ST changes. Conclusion: Unremarkable Lexiscan stress. Myoview images reported separately. Test Summary REST . . . . . . . Resting REST 02:29 . . 68 . 124/ 75 . . Stage 1 01:00 . . 96 . . . . Stage 2 01:00 . . 88 . 123/ 70 . . Stage 3 01:00 . . 82 . 125/ 72 . . Stage 4 01:00 . . 80 . 117/ 70 . . Stage 4 01:01 . . 80 . 117/ 70 . Stop exercise at 04:01 RECOVERY 01:00 . . 77 . . . . RECOVERY 02:00 . . 76 . 130/ 69 . . RECOVERY 03:00 . . 73 . 117/ 67 . . RECOVERY 03:17 . . 76 . 117/ 67 . . Electronically signed by : Salina Pete MD 03/02/2023 23:36:26
--- NOTE | 2023-02-27 06:39 | CT_ITS ---
FINAL REPORT TECHNIQUE: Axial images through the chest were performed by computed tomography. This study was performed with techniques to keep radiation doses as low as reasonably achievable, (ALARA). Individualized dose reduction techniques using automated exposure control or adjustment of mA and/or kV according to the patient's size were employed. CLINICAL HISTORY: angina/dyspnea COMPARISON: None FINDINGS: CT CHEST: CT examination of the chest without intravenous contrast reveals a few scattered mediastinal nodes, which are nonspecific. No hilar or axillary adenopathy is identified. There are dense coronary artery calcifications present, and a probable stent in a coronary artery. No confluent infiltrates or effusions are identified. No pericardial effusion is present. There are mild chronic changes in the lung bases. In the upper abdomen, the gallbladder is noted to be surgically absent. IMPRESSION: There are a few scattered nonspecific mediastinal nodes. Dense coronary artery calcifications are present along with a probable coronary artery stent. Reviewed, Interpreted and Dictated by Andre Grayson MD Transcribed by Anna Kan Authenticated and [facility]
--- NOTE | 2023-02-27 06:39 | NM_ITS ---
APPROVED REPORT Exam: Nuclear Stress Test Indication: CAD, 2 STENTS, OBESITY, HTN, HYPERLIPIDEMIA, C.P., SOB, FATIGUE Patient Location: Outpatient Stress Tech: [facility] Tech:JUAN MANUEL Bryan RT (R)(N)(M) Ht: 5 ft 1 in Wt: 225 lbs Bra Size: C HR: 65 bpm BP: 124/75 mmHg BSA: 1.99 m2 Rhythm: NSR TID: 1.33 BMI: 42.5 History: CAD, 2 STENTS, HTN, HYPERLIPIDEMIA, C.P., SOB, FATIGUE Procedure: Patient received 0.4 mg of intravenous Lexiscan, resting heart rate 65 bpm, resting blood pressure 124/75 mmHg, with Lexiscan maximum heart rate achieved was 91 bpm which is % of the maximum predicted heart rate and blood pressure was 123/70 mmHg. With Lexiscan, patient denied any complaint of chest pain. Cardiac Stress and Resting SPECT Images: Cardiac Stress and Resting SPECT images were obtained using technetium 99m Myoview 31.8 mCi stress and 10.53 mCi at rest. Resting and stress imaging in supine and prone positions demonstrate no evidence of fixed or reversible perfusion defects. There is increased transient ischemic dilatation ratio (TID 1.33), suggestive of possible multivessel disease or balanced ischemia. Gated imaging demonstrates normal global and regional LV systolic function. LVEF is calculated at 65%. Conclusion: No evidence of fixed or reversible perfusion defects. There is increased transient ischemic dilatation ratio (TID 1.33), suggestive of possible multivessel disease or balanced ischemia. Gated imaging demonstrates normal global and regional LV systolic function. LVEF is calculated at 65%. Electronically signed by : Salina Pete MD 03/02/2023 23:38:11
== END ==
PROVIDERS: PCP Emergency Medicine; Referring Provider Physician Assistant; Visit Provider Physician Assistant
DX: E78.5 Hyperlipidemia, unspecified (principal); I11.9 Hypertensive heart disease without heart failure; I25.10 Atherosclerotic heart disease of native coronary artery without angina pectoris; R06.00 Dyspnea, unspecified; R60.9 Edema, unspecified; Z95.5 Presence of coronary angioplasty implant and graft
CPT/HCPCS: 71250; 78452; 93017; 93018; A9502; J2785

== ENCOUNTER → 2023-03-10 09:11 | Outpatient (POV) | payer MEDICARE, SELFPAY ==
--- NOTE | 2023-03-10 09:22 | EXP.PAIN.SOA ---
[facility] Pain Management SOAP Note Subjective:: Patient is a pleasant 52-year-old female who presents today for follow-up and medication refill. We are currently treating the patient for degenerative disc disease of cervical and lumbar spine with cervical and lumbar radiculopathy symptoms, low back pain, cervical spinal stenosis. Today she rates her pain an 8 out of 10. Patient denies any new trauma or injury from her last visit. Patient states that she did have her stress test and that she is now scheduled for an upcoming heart cath. She states that they are not sure whether or not if the stent is not working correctly or that she has a new blockage. Patient does have this procedure scheduled for Friday. She states she continues to have her low back pain on a daily basis. she is currently managed with clonazepam 0.5 mg twice a day from Dr. Rao's office and tizanidine 4 mg at bedtime, methocarbamol 500 mg twice a day and Tylenol 3 daily. Patient denies any side effects from this medication. Her Alex has been reviewed and is appropriate. Review of Systems: General: No recent weight changes, no fever, no sleep disturbances Respiratory: No cough, no shortness of air, no recurring pulmonary infections Cardiovascular/peripheral vascular: No chest pain, no palpitations, no edema, no shortness of breath Gastrointestinal: No new onset incontinence, normal bowel movements reported Genitourinary: No new onset incontinence Musculoskeletal: Low back pain Psychiatric: [Normal mood/affect] Neurological: [Denies weakness in extremities], [denies balance issues] Objective:: Physical Exam: General: Alert and oriented x3, no acute distress, pleasant and cooperative Lungs: Respirations even and unlabored, symmetrical chest expansion Eyes: PERRL Musculoskeletal: Flexion and extension of lumbar [spine] somewhat guarded secondary to pain, [antalgic gait noted] Neurological: Speech clear, no gross sensory deficit Assessment:: Degenerative disc disease of cervical and lumbar spine with cervical and lumbar radiculopathy symptoms, low back pain, cervical spinal stenosis Plan:: Patient continues to do well with her current medication regimen. I will refill her Tylenol 3 daily and provide a 1 month supply of this medication along with her tizanidine 4 mg at bedtime and methocarbamol 500 mg twice daily. Patient will return to clinic in 1 month for reevaluation of symptoms and medication refill. Patient has been advised of risks of oversedation with the prescribed medication. Narcan has been offered to the patient in the event of oversedation. Patient has been advised that a family member should also be educated regarding administration of Narcan. Patient has been instructed to contact the clinic with any concerns before the next appointment. Dr. Kirk has reviewed this note and agrees with this plan of care. This note was dictated using voice recognition software and make contain errors or omissions. [facility] Disclaimer: The information contained in this section may have been updated after the patient was seen, as this information can be updated by other users. Medical History (Updated 03/03/23 @ 15:28 by Paty Andrews RN) Abnormal cardiovascular stress test Abnormal result of cardiovascular function study Asthma BMI 36.0-36.9,adult Chest pain COPD (chronic obstructive pulmonary disease) Coronary artery disease Depression Diastolic dysfunction Dyspnea Edema HTN (hypertension) Hyperlipidemia Hyperlipidemia associated with type 2 diabetes mellitus Morbidly obese Tachycardia Typical angina Family History Other No significant family history Social History Smoking Status: Never smoker second hand exposure: No alcohol intake: never substance use type: denies use current occupational status: employed Travel in the last 8 weeks: None
[2023-03-10 09:47] VITALS: BP 109/55; PULSE 73; RESP 18; O2SAT 94; BMI 45.4
== END | disposition home or self-care (01) ==
PROVIDERS: PCP Emergency Medicine; Visit Provider Nurse Practitioner Family
DX: M50.10 Cervical disc disorder with radiculopathy, unspecified cervical region (principal); M51.16 Intervertebral disc disorders with radiculopathy, lumbar region; M48.02 Spinal stenosis, cervical region
CPT/HCPCS: 99212; G0463

== ENCOUNTER 2023-03-12 08:18 | Day surgery (SDC) | payer MEDICARE, SELFPAY ==
[2023-03-12] VITALS (10 sets, daily range): BP systolic 100–129; BP diastolic 62–80; PULSE 52–75; RESP 17–20; O2SAT 90–98; BMI 45.8; BMI 46.9
--- NOTE | 2023-03-12 07:10 | IR_ITS ---
APPROVED REPORT Patient Location: Outpatient PROCEDURES Left heart catheterization Left ventriculogram Selective coronary angiogram INDICATION Unstable angina, Abnormal Myoview Informed consent was obtained prior to the procedure. COMPLICATIONS None Estimated Blood Loss: Less than 10 mls TECHNIQUE One percent lidocaine used to anesthetize the right anterior aspect of the wrist. The right radial artery was accessed via the Seldinger technique. A 6 Dutch sheath was placed in the right radial artery. 2.5 mg of Verapamil, 800 mcg of nitroglycerin, 1mg Lidocaine and 5000 U Heparin were given through the arterial sheath. The papa catheter was also used to perform left heart catheterization, left ventriculogram and selective coronary angiogram. At the end of the procedure the sheath was removed good hemostasis was achieved using Traclet band, patient was transferred to the postop holding area in stable condition. ANGIOGRAPHIC RESULTS The left main artery Normal The left anterior descending artery Normal The circumflex artery Normal The right coronary artery Is dominant has a proximal 20 to 30% stenosis The AZUL ventriculogram reveals Normal 65% The left ventricular end-diastolic pressure 15 to 20 mmHg IMPRESSION Mild nonflow limiting coronary disease Normal ejection fraction Borderline high LVEDP PLAN 1. Risk factor modification 2. Continue medical management Electronically signed by : Paul Stratton MD 03/14/2023 12:50:04
[2023-03-12 08:54] LABS: Basophils # 0.1 K/mm3 (0-0.2); Basophils % 1.6 % (0.1-2.0); Eosinophils # 0.2 K/mm3 (0.0-0.4); Eosinophils % 2.6 % (0.1-12.0); Hematocrit 45.7 % (37.0-47.0); Hemoglobin 15.9 g/dL (12.2-16.2); Lymphocytes # 2.6 K/mm3 (0.7-4.5); Lymphocytes % 43.5 % (10-50); Mean Corpuscular HGB Conc 34.8 g/dL (31.8-35.4); Mean Corpuscular Hemoglobin 32.9 pg (27.0-31.2); Mean Corpuscular Volume 94.4 fl (81-99); Mean Platelet Volume 9.5 fl (7.4-10.4); Monocytes # 0.4 K/mm3 (0.1-1.0); Monocytes % 6.6 % (1.7-9.3); Neutrophils # 2.7 K/mm3 (1.8-7.8); Neutrophils % 45.7 % (37.0-80.0); Platelet Count 275 K/mm3 (142-424); Red Blood Count 4.84 M/mm3 (4.20-5.40); Red Cell Distribution Width 13.3 % (11.5-17.5); White Blood Count 5.9 K/mm3 (4.8-10.8)
[2023-03-12 08:57] LABS: Chloride 103 mmol/L (98-107); Potassium 3.7 mmoL/L (3.5-5.1); Sodium 138 mmol/L (136-145)
[2023-03-12 08:59] LABS: Blood Urea Nitrogen 18 mg/dl (7-17); Creatinine Clearance Estimated 45 mL/min (50-200); Estimated Glomerular Filt Rate 66 ml/min (>60); GFR (African American) 80 ML/MIN (>60)
[2023-03-12 09:00] LABS: Anion Gap 10.7 mEq/L (5-15); Calcium 8.9 mg/dl (8.4-10.2); Carbon Dioxide 28 mmol/L (22.0-30.0); Glucose 126 mg/dl (74-100)
== END 2023-03-12 14:06 | disposition home or self-care (01) ==
PROVIDERS: PCP Internal Medicine; Visit Provider Internal Medicine
DX: E78.5 Hyperlipidemia, unspecified (principal); G47.33 Obstructive sleep apnea (adult) (pediatric); R94.30 Abnormal result of cardiovascular function study, unspecified; Z95.5 Presence of coronary angioplasty implant and graft; I25.118 Atherosclerotic heart disease of native coronary artery with other forms of angina pectoris; Z79.899 Other long term (current) drug therapy; I10 Essential (primary) hypertension; E66.01 Morbid (severe) obesity due to excess calories; Z68.42 Body mass index [BMI] 45.0-49.9, adult
CPT/HCPCS: 80048; 85025; 93458; 99152; C1725; C1769; J1644

== ENCOUNTER 2023-05-10 12:04 | Emergency (ER) | payer MEDICARE, MEDICAID, SELFPAY ==
[2023-05-10 12:50] VITALS: BP 144/75; PULSE 89; RESP 19; TEMP 36.9; O2SAT 97; BMI 46.7
--- NOTE | 2023-05-10 12:55 | ED_ITS ---
Discharge Plan Disposition Patient Disposition: Home, Self-Care Condition: Good Prescriptions Prescriptions: New amoxicillin [amoxicillin] 875 mg tablet 875 mg PO Q12H Qty: 20 0RF benzonatate [benzonatate] 100 mg capsule 100 mg PO TIDP PRN (Reason: Cough) Qty: 30 0RF prednisone [prednisone] 20 mg tablet 20 mg PO BID 3 Days Qty: 6 0RF fluconazole 150 mg tablet 150 mg PO ONCE Qty: 1 5RF No Action estradiol 1 mg tablet 1 mg PO DAILY Patient Comments: TAKE 1 TABLET BY MOUTH EVERY DAY prazosin 1 mg capsule 1 mg PO DAILY buspirone 5 mg tablet 5 mg PO BID Qty: 180 0RF escitalopram oxalate [Lexapro] 20 mg tablet 20 mg PO QDAY Qty: 90 0RF Vraylar 1.5 mg capsule 1.5 mg PO DAILY Qty: 90 0RF omeprazole 40 mg capsule,delayed release(DR/EC) 40 mg PO BID polyethylene glycol 3350 [Miralax] 17 gram/dose powder 17 g PO DAILY PRN (Reason: Constipation) Citrucel (sucrose) Powder 1 tbsp PO DAILY PRN (Reason: Constipation) trazodone 50 mg tablet 50 mg PO HS clopidogrel [Plavix] 75 mg tablet 75 mg PO QDAY Qty: 90 3RF bisoprolol fumarate 5 mg tablet 5 mg PO DAILY Qty: 90 3RF albuterol sulfate 5 mg/mL solution for nebulization 5 mg INHALATION Q4H PRN (Reason: COPD) Qty: 4500 2RF budesonide-formoterol [Symbicort] 160-4.5 mcg/actuation HFA aerosol inhaler See Rx Instructions .ROUTE .COMPLEX Qty: 10.2 2RF Dose Instruction: INHALE TWO PUFFS BY MOUTH TWICE DAILY Rx Instructions: INHALE TWO PUFFS BY MOUTH TWICE DAILY spironolactone 100 mg tablet See Rx Instructions .ROUTE .COMPLEX Qty: 90 1RF Dose Instruction: TAKE ONE TABLET BY MOUTH EVERY DAY Rx Instructions: TAKE ONE TABLET BY MOUTH EVERY DAY atorvastatin 10 mg tablet See Rx Instructions .ROUTE .COMPLEX Qty: 30 0RF Dose Instruction: TAKE ONE TABLET BY MOUTH EVERY DAY AT BEDTIME FOR cholesterol Rx Instructions: TAKE ONE TABLET BY MOUTH EVERY DAY AT BEDTIME FOR cholesterol aspirin 81 mg tablet,delayed release (DR/EC) 81 mg PO DAILY bumetanide 2 mg tablet 2 mg PO TID PRN (Reason: Heart failure) Rx Instructions: Take 2 mg twice a day and may take extra 2 mg prn for swelling. methocarbamol 500 mg tablet 500 mg PO BID Qty: 60 0RF tizanidine [Zanaflex] 4 mg tablet 4 mg PO HS Qty: 30 0RF acetaminophen-codeine 300-30 mg tablet 1 tab PO DAILY Qty: 30 0RF Referrals Follow up/Referrals: Maria Esther Santo PA [Primary Care Provider] - See instructions Activity Restrictions/Add. Instructions Additional Instructions/Restrictions: Drink plenty of fluids. Take tylenol or ibuprofen for pain or fever. Take the medications as directed. Follow up with your regular doctor. GO TO THE ER FOR ANY WORSENING SYMPTOMS Clinical Impressions Clinical Impression: Strep pharyngitis Instructions Patient Instructions: Sore Throat, DI for Pharyngitis/Tonsillopharyngitis -- Adult Discharge ED Provider: Kaveh Hawkins [facility] General Stated complaint: sore throat Time Seen by Provider: 05/10/23 12:55 History of Present Illness Provider Complaint: She states that for the past 3 days she has had sore throat, body aches and malaise. Related Data Home Medications Medication Instructions Recorded Confirmed estradiol 1 mg tablet 1 mg PO DAILY Supplement 12/08/19 04/24/23 methylcellulose (with sugar) oral 1 tbsp PO DAILY PRN Constipation 04/03/21 04/24/23 powder (Citrucel (sucrose) oral powder) omeprazole 40 mg capsule,delayed 40 mg PO BID Acid reflux 04/03/21 04/24/23 release polyethylene glycol 3350 17 17 g PO DAILY PRN Constipation 04/03/21 04/24/23 gram/dose oral powder (Miralax) trazodone 50 mg tablet 50 mg PO HS Insomnia 07/17/21 04/24/23 prazosin 1 mg capsule 1 mg PO DAILY High blood pressure 07/20/21 04/24/23 aspirin 81 mg tablet,delayed 81 mg PO DAILY Heart health 01/07/22 04/24/23 release bumetanide 2 mg tablet 2 mg PO TID PRN Heart failure 09/12/22 04/24/23 Previous Rx's Medication Instructions Recorded bisoprolol fumarate 5 mg tablet 5 mg PO DAILY High blood pressure 04/29/22 #90 tabs albuterol sulfate 5 mg/mL(0.5 %) 5 mg inhalation Q4H PRN COPD 12/18/22 solution for nebulization #4,500 mL clopidogrel 75 mg tablet (Plavix) 75 mg PO QDAY #90 tabs 01/15/23 budesonide-formoterol HFA 160 See Rx Instructions .Route 01/17/23 mcg-4.5 mcg/actuation aerosol .COMPLEX #10.2 grams inhaler (Symbicort) spironolactone 100 mg tablet See Rx Instructions .Route 02/12/23 .COMPLEX #90 tabs acetaminophen 300 mg-codeine 30 mg 1 tab PO DAILY #30 tabs 03/10/23 tablet methocarbamol 500 mg tablet 500 mg PO BID Pain #60 tabs 03/10/23 tizanidine 4 mg tablet (Zanaflex) 4 mg PO HS Pain #30 tabs 03/10/23 atorvastatin 10 mg tablet See Rx Instructions .Route 04/24/23 .COMPLEX #30 tabs buspirone 5 mg tablet 5 mg PO BID #180 tabs 04/24/23 cariprazine 1.5 mg capsule 1.5 mg PO DAILY #90 caps 04/24/23 (Vraylar) escitalopram oxalate 20 mg tablet 20 mg PO QDAY #90 tabs 04/24/23 (Lexapro) amoxicillin 875 mg tablet 875 mg PO Q12H #20 tabs 05/10/23 benzonatate 100 mg capsule 100 mg PO TIDP PRN Cough #30 caps 05/10/23 fluconazole 150 mg tablet 150 mg PO ONCE 1 dose #1 tab 05/10/23 prednisone 20 mg tablet 20 mg PO BID 3 days #6 tabs 05/10/23 Allergies Allergy/AdvReac Type Severity Reaction Status Date / Time No Known Allergies Allergy Verified 04/24/23 09:31 [facility] Disclaimer: The information contained in this section may have been updated after the patient was seen, as this information can be updated by other users. Medical History (Updated 05/10/23 @ 13:21 by Kaveh Hawkins APRN) Abnormal cardiovascular stress test Abnormal result of cardiovascular function study Asthma BMI 36.0-36.9,adult Chest pain COPD (chronic obstructive pulmonary disease) Coronary artery disease Depression Diastolic dysfunction Dyspnea Edema HTN (hypertension) Hyperlipidemia Hyperlipidemia associated with type 2 diabetes mellitus Morbidly obese Tachycardia Typical angina Family History Other No significant family history Social History Smoking Status: Never smoker second hand exposure: No alcohol intake: never substance use type: denies use current occupational status: employed Travel in the last 8 weeks: None household members: none housing: house current occupational exposures/hazards: No caffeine: Yes ROS Obtained: Yes All systems reviewed & no additional complaints except as documented Constitutional Constitutional: Reports chills and Reports fever(s) Eyes Eyes: Denies eye discharge ENT Ears, Nose, Mouth, and Throat: Reports as per HPI Cardiovascular Cardiovascular: Denies chest pain Respiratory Respiratory: Denies chest congestion and Reports cough Gastrointestinal Gastrointestingal: Reports nausea; Denies abdominal pain, constipation, cramping, diarrhea or vomiting Musculoskeletal Musculoskeletal: Denies arthralgias Integumentary/Breasts Skin/Breast: Denies rash Neurologic Neurologic: Denies paresthesias Physical Exam General General appearance: alert and in no apparent distress Head Head exam: atraumatic, normocephalic and normal inspection Eye Eye exam: Present normal appearance, PERRL and EOMI ENT ENT exam: Present mucous membranes moist and normal external ear exam Expanded ENT Exam TM/Canal exam: Bilateral TM: erythema and bulging Nose exam: Absent sinus tenderness Mouth exam: Present normal external inspection; Absent drooling Teeth exam: Present normal inspection Throat exam: Present tonsillar erythema, tonsillomegaly and tonsillar exudate Neck Neck exam: Present normal inspection, full ROM and trachea midline; Absent tenderness, meningismus or lymphadenopathy Chest Chest inspection: Present normal inspection and symmetric chest wall rise; Absent tenderness Respiratory Respiratory exam: Present normal lung sounds bilaterally; Absent respiratory distress, wheezes or stridor Cardiovascular Cardiovascular exam: Present regular rate and normal rhythm; Absent systolic murmur or diastolic murmur Abdominal Exam Abdominal exam: Present soft and normal bowel sounds; Absent distention, tenderness, guarding, rebound or rigidity Extremities Exam Extremities exam: Present normal inspection and normal capillary refill; Absent calf tenderness Back Exam Back exam: Present normal inspection and full ROM; Absent tenderness, CVA tenderness (R) or CVA tenderness (L) Neurological Exam Neurological exam: Present alert, oriented X3 and CN II-XII intact Psychiatric Psychiatric exam: Present normal affect and normal mood Skin Skin exam: Present warm, dry, intact and normal color Medical Decision Making Medical Records Medical records reviewed: No I reviewed the patient's medical records. Alex Inquiry Pt receiving controlled substance: No Lab Data Lab results reviewed: Yes I reviewed the patient's lab results.
[2023-05-10 13:33] LABS: UTC Strep Screen (Rapid) Positive (Negative)
[2023-05-10 13:35] VITALS: BP 144/75; PULSE 89; RESP 19; TEMP 36.9; O2SAT 97
== END 2023-05-10 13:39 | disposition home or self-care (01) ==
PROVIDERS: Emergency Provider Nurse Practitioner Family; PCP Physician Assistant
DX: J02.0 Streptococcal pharyngitis (principal); R07.0 Pain in throat; R05.9 Cough, unspecified; R53.81 Other malaise; I11.9 Hypertensive heart disease without heart failure; E78.5 Hyperlipidemia, unspecified; J44.9 Chronic obstructive pulmonary disease, unspecified; I25.119 Atherosclerotic heart disease of native coronary artery with unspecified angina pectoris; Z95.5 Presence of coronary angioplasty implant and graft
CPT/HCPCS: 87880; 99212; 99214; G0463

== ENCOUNTER → 2023-05-22 08:59 | Outpatient (POV) | payer MEDICARE, MEDICAID, SELFPAY ==
--- NOTE | 2023-05-22 09:20 | EXP.PAIN.SOA ---
[facility] Pain Management SOAP Note Subjective:: Patient is a pleasant 52-year-old female who presents today forMedication refill and follow-up. We are currently treating the patient for degenerative disc disease of cervical and lumbar spine with cervical and lumbar radiculopathy symptoms, low back pain, cervical spinal stenosis. Today she rates her pain a 10 out of 10. Patient denies any new trauma or injury from our last visit. She does state that she continues to have worsening pain in her low back and legs with limited range of motion. She describes this as an aching, throbbing sensation with numbness and tingling into her extremities. Patient does state the pain interferes with her ability perform activities of daily living such as cooking and cleaning. She is interested in injection therapy. Patient is managed with clonazepam 0.5 mg twice a day from an outside provider and tizanidine 4 mg at bedtime, methocarbamol 500 mg twice a day and Tylenol 3 daily from our office. Patient denies any side effects from these medications. She does state that they do help. Her Alex has been reviewed and is appropriate. Review of Systems: General: No recent weight changes, no fever, no sleep disturbances Respiratory: No cough, no shortness of air, no recurring pulmonary infections Cardiovascular/peripheral vascular: No chest pain, no palpitations, no edema, no shortness of breath Gastrointestinal: No new onset incontinence, normal bowel movements reported Genitourinary: No new onset incontinence Musculoskeletal: Low back pain, bilateral leg pain Psychiatric: [Normal mood/affect] Neurological: [Denies weakness in extremities], [denies balance issues] Objective:: Physical Exam: General: Alert and oriented x3, no acute distress, pleasant and cooperative Lungs: Respirations even and unlabored, symmetrical chest expansion Eyes: PERRL Musculoskeletal: Flexion and extension of lumbar [spine] somewhat guarded secondary to pain, [antalgic gait noted] Neurological: Speech clear, no gross sensory deficit Assessment:: Degenerative disc disease of cervical and lumbar spine with cervical and lumbar radiculopathy symptoms, low back pain, cervical spinal stenosis Plan:: Patient is experiencing worsening pain in her low back and legs with limited range of motion. I have discussed with the patient that she may benefit from a lumbar epidural steroid injection. We had tried to do an injection last year but due to a recent cardiac stent placed she was unable to stop her blood thinner. Today it has been a long enough that she should be able to stop this medication temporarily. Risk and benefits were discussed with the patient and she would like to proceed forward with this plan of care. Patient is currently on Brilinta that is prescribed by Dr. Stratton's office. We will contact his office and confirm that she can stop this medication prior to this injection. Patient has tried and failed conservative therapy such as oral medications, heat and ice, topicals, physical therapy, at home exercise and stretching for longer than 6 weeks. Patient's previous MRI imaging of her lumbar spine did show multilevel degenerative disc disease with areas of neuroforaminal narrowing and disc protrusion at L5-S1. We will schedule the patient for an LESI L5-S1. I will refill the patient's tizanidine 4 mg at bedtime, methocarbamol 500 mg twice a day and Tylenol 3 daily and provide a 1 month supply of these medications. Patient has been instructed to contact the clinic with any concerns before the next appointment. Dr. Kirk has reviewed this note and agrees with this plan of care. This note was dictated using voice recognition software and make contain errors or omissions. [facility] Disclaimer: The information contained in this section may have been updated after the patient was seen, as this information can be updated by other users. Medical History (Updated 05/10/23 @ 13:21 by Kaveh Hawkins APRN) Abnormal cardiovascular stress test Abnormal result of cardiovascular function study Asthma BMI 36.0-36.9,adult Chest pain COPD (chronic obstructive pulmonary disease) Coronary artery disease Depression Diastolic dysfunction Dyspnea Edema HTN (hypertension) Hyperlipidemia Hyperlipidemia associated with type 2 diabetes mellitus Morbidly obese Tachycardia Typical angina Family History Other No significant family history Social History Smoking Status: Never smoker second hand exposure: No alcohol intake: never substance use type: denies use current occupational status: employed Travel in the last 8 weeks: None household members: none housing: house current occupational exposures/hazards: No caffeine: Yes
[2023-05-22 09:54] VITALS: BP 155/86; PULSE 102; RESP 18; O2SAT 97; BMI 45.3
[2023-05-22 10:05] LABS: Barbiturates Screen,Urine Negative ng/ml (<200)
[2023-05-22 10:06] LABS: Benzodiazepines Screen,Urine Negative ng/ml (<200)
[2023-05-22 10:07] LABS: Amphetamine/Metha Screen,Urine Negative ng/ml (<1000); Methadone Screen,Urine Negative ng/ml (<300)
[2023-05-22 10:08] LABS: Cannabinoid Screen,Urine Negative ng/ml (<50); Cocaine Screen,Urine Negative ng/ml (<300)
[2023-05-22 10:09] LABS: Opiate Screen,Urine Negative ng/ml (<300)
[2023-05-22 10:10] LABS: Phencyclidine Screen,Urine Negative ng/ml (<25)
[2023-05-26 15:11] LABS: Opiates Negative (Cutoff=100)
== END | disposition home or self-care (01) ==
PROVIDERS: PCP Physician Assistant; Visit Provider Nurse Practitioner Family
DX: Z79.891 Long term (current) use of opiate analgesic (principal); M50.10 Cervical disc disorder with radiculopathy, unspecified cervical region; M51.16 Intervertebral disc disorders with radiculopathy, lumbar region; M48.02 Spinal stenosis, cervical region
CPT/HCPCS: 80307; 80361; 80365; 99212; G0463; G0480

== ENCOUNTER 2023-07-08 14:17 | Day surgery (SDC) | payer MEDICARE, MEDICAID, SELFPAY ==
[2023-07-08 14:32] VITALS: BP 147/68; PULSE 84; RESP 16; TEMP 36.5; O2SAT 95; BMI 43.0
[2023-07-08] MEDS: methylPREDNISolone ACETATE 80MG/ML VIAL 80 MG (14:32)
[2023-07-08 14:36] VITALS: BP 130/41; PULSE 87; RESP 18; O2SAT 97
--- NOTE | 2023-07-08 14:39 | EXP.PAIN.PRO ---
Procedure Date: 07/08/23 Time: 14:30 Anesthesiologist:: Smith Segura CRNA Complications:: None Pre-procedure Diagnosis:: Degenerative disc lumbar spine multilevels. Lumbar radiculopathy. Post-procedure Diagnosis:: Same. Indications for Procedure:: Patient is a pleasant 52-year-old female comes our clinic today for lumbar epidural steroid injection at the L5-S1 level. Patient reports low back pain as well as bilateral hip and leg radicular symptoms. She rates her pain 7/10. Procedure Details:: Procedure: Lumbar epidural steroid injection under fluoroscopy Informed consent was obtained and the risks and benefits of the procedure were explained to the patient. The patient was taken to the procedure room and noninvasive monitors placed, including noninvasive blood pressure cuff and pulse oximeter. The back was viewed using C-arm Fluoroscopy and prepped using Chloraprep as a cleansing solution and the L5-S1 interspace was palpated. Skin and subcutaneous tissues were anesthetized using lidocaine 1.5% and a 25-gauge needle. After this, an 18-gauge Touhy epidural needle was placed into the L5-S1 interspace and advanced using fluoroscopic guidance and loss of resistance to air until the epidural space was encountered. After confirmation of needle placement in the epidural space, with dye, a solution containing normal saline, 3 mL and Depo-Medrol 80 mg were incrementally injected into the lumbar epidural space. The patient tolerated the procedure well with no complications. The patient was observed in the Pain Clinic and then discharged home neurologically intact. Plan and Disposition:: Patient was discharged without incident.
[2023-07-08 14:40] VITALS: BP 175/85; PULSE 80; RESP 18; O2SAT 95
== END 2023-07-08 14:40 | disposition home or self-care (01) ==
PROVIDERS: PCP Physician Assistant; Visit Provider Nurse Anesthetist, Certified Registered
DX: M51.16 Intervertebral disc disorders with radiculopathy, lumbar region (principal)
CPT/HCPCS: 62323; J1010

== ENCOUNTER 2023-07-28 09:01 | Outpatient (POV) | payer MEDICARE, MEDICAID, SELFPAY ==
[2023-07-28 09:15] VITALS: BP 156/89; PULSE 75; RESP 18; TEMP 36.6; O2SAT 98; BMI 44.9
--- NOTE | 2023-07-28 09:19 | EXP.PAIN.SOA ---
[facility] Pain Management SOAP Note Subjective:: Patient is a pleasant 52-year-old female who presents today for follow-up of lumbar epidural steroid injection L5-S1 on 07/08/2023. Today she rates her pain a 5 out of 10. Patient denies any new trauma or injury. She does state that she has had at least 85% improvement following this injection and feels like it is still currently providing additional relief. Patient states that she has been able to sleep better and has had overall pain improvement. She states that she is able to move around easier. Patient states that she has not needed to take her medicine as much as well. Patient is currently managed with tizanidine 4 mg at bedtime, methocarbamol 500 mg twice a day and Tylenol 3 daily from our office. She denies any side effects from this medication. She is also prescribed clonazepam from an outside provider. Her Alex has been reviewed and is appropriate. Review of Systems: General: No recent weight changes, no fever, no sleep disturbances Respiratory: No cough, no shortness of air, no recurring pulmonary infections Cardiovascular/peripheral vascular: No chest pain, no palpitations, no edema, no shortness of breath Gastrointestinal: No new onset incontinence, normal bowel movements reported Genitourinary: No new onset incontinence Musculoskeletal: Low back pain Psychiatric: [Normal mood/affect] Neurological: [Denies weakness in extremities], [denies balance issues] Objective:: Physical Exam: General: Alert and oriented x3, no acute distress, pleasant and cooperative Lungs: Respirations even and unlabored, symmetrical chest expansion Eyes: PERRL Musculoskeletal: Flexion and extension of lumbar [spine] somewhat guarded secondary to pain, [antalgic gait noted] Neurological: Speech clear, no gross sensory deficit Assessment:: Degenerative disc disease of cervical and lumbar spine with cervical and lumbar radiculopathy symptoms, low back pain, cervical spinal stenosis Plan:: Patient has had significant improvement following her lumbar epidural and does not require any additional injection therapy at this time. I will refill her tizanidine, methocarbamol and Tylenol 3 and provide a 1 month supply of these medications. Patient will return to clinic in 1 month for reevaluation of symptoms and plan of care. Risks and benefits of the medication have been explained in detail to the patient. The patient does understand the risk of dependence on the medication when given over a prolonged period. Patient has been advised of risks of oversedation with the prescribed medication. Narcan has been offered to the paitent in the event of oversedation. Patient has been advised that a family member should also be educated regarding administration of Narcan. The patient has been advised to consult with his/her primary care provider and pharmacist regarding drug-drug interaction of medications currently prescribed. Patient has been prescribed a controlled substance after being counseled on the medication, medication safety, and possible side effects. Opioid contract was reviewed and signed by the patient, and that they have agreed to all of the terms set forth by our compliance program. Patient has been instructed to contact the clinic with any concerns before the next appointment. Dr. Kirk has reviewed this note and agrees with this plan of care. This note was dictated using voice recognition software and make contain errors or omissions. [facility] Disclaimer: The information contained in this section may have been updated after the patient was seen, as this information can be updated by other users. Medical History Abnormal cardiovascular stress test Asthma COPD (chronic obstructive pulmonary disease) Hyperlipidemia Hyperlipidemia associated with type 2 diabetes mellitus Morbidly obese Coronary artery disease Typical angina Abnormal result of cardiovascular function study Tachycardia Diastolic dysfunction HTN (hypertension) Edema Dyspnea Chest pain BMI 36.0-36.9,adult Depression Family History Other No significant family history Social History Smoking Status: Never smoker second hand exposure: No alcohol intake: never substance use type: denies use current occupational status: other Travel in the last 8 weeks: None household members: none housing: house current occupational exposures/hazards: No caffeine: Yes
== END 2023-07-28 23:59 | disposition home or self-care (01) ==
PROVIDERS: PCP Physician Assistant; Visit Provider Nurse Practitioner Family
DX: M50.10 Cervical disc disorder with radiculopathy, unspecified cervical region (principal); M51.16 Intervertebral disc disorders with radiculopathy, lumbar region; M48.02 Spinal stenosis, cervical region
CPT/HCPCS: 99212; G0463

== ENCOUNTER 2023-08-21 09:07 | Outpatient (POV) | payer MEDICARE, MEDICAID, SELFPAY ==
--- OUTSIDE RECORDS SUMMARY | 2023-08-21 09:10 | XMS_ITS ---
Author Name Unknown Address [address] [place] [address] Phone Organization [facility] Address [address] [place] [address] Phone Care Team Providers Care Spring Coverer Name Role Phone Maira MARTINEZ, Arben Plummer Primary Care Provider [phone] Venkata MARTINEZ, Evan Young Unavailable [phone] Aziza MARTINEZ, Sonido Unavailable [phone] Problems Includes: Active, inactive, and resolved Problems All Visits Onset Date Resolved Date Provider Condition S tatus Lower Back Pain 06/24/2018 Evan Hastings MD Act sridhar Last Documented On 9 1:54PM ; [facility] Joint Pain, Localized in the Hip 08/12/2017 Bryce Hastings MD Active Last Documented On 8 3:56PM ; [facility] Plan of Treatment Instructions to patient Instructions for patient See PCP for Weight Loss Last Documented On 0 1:17PM ; [facility] Instructions for patient See PCP for Weight Loss Last Documented On 0 3:18PM ; [facility] Instructions for patient see pcp for weight and BP Last Documented On 9 9:48AM ; [facility] Lose weight Last Documented On 9 9:48AM ; [facility] Instructions for patient see pcp for weight and BP Last Documented On 9 11:32AM ; [facility] Lose weight Last Documented On 9 11:32AM ; [facility] Instructions for patient to see pcp for bp and wt Last Documented On 9 8:27AM ; [facility] Lose weight Last Documented On 9 8:27AM ; [facility] Instructions for patient to see pcp for bp and wt Last Documented On 9 4:49PM ; [facility] Lose weight Last Documented On 9 4:49PM ; [facility] Instructions for patient to see pcp for bp and wt Last Documented On 9 11:46AM ; [facility] Lose weight Last Documented On 9 11:46AM ; [facility] Instructions for patient to see pcp for bp and wt Last Documented On 9 1:55PM ; [facility] Lose weight Last Documented On 9 1:55PM ; [facility] Assessments Includes: Assessments for all patient encounters No Assessments Recorded Instructions Includes: Instructions for all patient encounters Instructions to patient Instructions for patient See PCP for Weight Loss Last Documented On 0 1:17PM ; [facility] Instructions for patient See PCP for Weight Loss Last Documented On 0 3:18PM ; [facility] Instructions for patient see pcp for weight and BP Last Documented On 9 9:48AM ; [facility] Lose weight Last Documented On 9 9:48AM ; [facility] Instructions for patient see pcp for weight and BP Last Documented On 9 11:32AM ; [facility] Lose weight Last Documented On 9 11:32AM ; [facility] Instructions for patient to see pcp for bp and wt Last Documented On 9 8:27AM ; [facility] Lose weight Last Documented On 9 8:27AM ; [facility] Instructions for patient to see pcp for bp and wt Last Documented On 9 4:49PM ; [facility] Lose weight Last Documented On 9 4:49PM ; [facility] Instructions for patient to see pcp for bp and wt Last Documented On 9 11:46AM ; [facility] Lose weight Last Documented On 9 11:46AM ; [facility] Instructions for patient to see pcp for bp and wt Last Documented On 9 1:55PM ; [facility] Lose weight Last Documented On 9 1:55PM ; [facility] Medical Equipment - Implanted Devices Includes: Current and historical Devices No Medical Equipment Recorded Medications Includes: Current and historical Medications Current Medications (continue as prescribed) Estradiol 1 MG Oral Tablet 01/22/2019 Provider: Diagnosis: Last Documented On 9 11:36AM By Sharon Sanchez ; [facility] buPROPion HCl ER (SR) 150 MG Oral Tablet Extended Release 12 Hour 01/19/2019 Provider: Diagnosis: Last Documented On 9 11:36AM By Sharon Sanchez ; [facility] Adult Aspirin EC Low Strengt h 81 MG Oral Tablet Delayed Release 12/21/2018 Provider: Diagnosis: Last Documented On 9 9:55AM By Sharon Sanchez ; [facility] Cetirizine HCl 10 MG Oral Capsule 12/18/2018 Provide r: Diagnosis: Last Documented On 9 9:54AM By Sharon Sanchez ; [facility] Fluzone Quadrivalent 9 MCG/S TRAIN Intradermal Suspension Pen-injector 12/08/2018 Provider: Diagnosis: Last Documented On 9 9:54AM By Sharon Sanchez ; [facility] PARoxetine HCl 10 MG Oral Tablet 12/08/2018 Provider : Diagnosis: Last Documented On 9 9:55AM By Sharon Sanchez ; [facility] Bisoprolol Fumarate 5 MG Oral Tablet 12/04/2018 Prov ider: Diagnosis: Last Documented On 9 9:54AM By Sharon Sanchez ; [facility] Drospirenone-Estradiol 0.5-1 MG Oral Tablet 11/29/2018 Provider: Diagnosis: Last Documented On 9 9:53AM By Sharon Sanchez ; [facility] Spironolactone 100MG Oral Tablet 06/24/2018 Provider : Diagnosis: Last Documented On 9 2:26PM By Dian Suárez ; [facility] Torsemide 100MG Oral Tablet 06/24/2018 Provider: Diagnosis: Last Documented On 9 2:27PM By Dian Suárez ; [facility] Past Medications on file Jud 5-325 MG Oral Tablet 06/18/2019 - 07/18/2019 Pro vider: Krystian Brooks MD Diagnosis: 1 tab every 12 hours Last Documented On 0 1:56PM By Anuel Casper ; [facility] Premarin 1.25MG Oral Tablet 06/24/2018 - 12/21/2018 Pr ovider: Diagnosis: Last Documented On 9 9:52AM By Sharon Sanchez ; [facility] Medications Administered Includes: Administered Medications in patient's chart No Administered Medications Recorded Results Includes: Results from 08/20/2022 through 08/21/2023 No Results Recorded For Specified Dates History of Present Illness History of Present Illness not supported for this document type No History of Present Illness Recorded Social History Description Last Updated Caffeine use 06/24/2018 Last Documented On 9 11:57AM ; [facility] No recent change in diet 08/12/2017 Last Documented On 8 8:50AM ; [facility] Not a current smoker 08/12/2017 Last Documented On 8 8:50AM ; [facility] Not exercising regularly 08/12/2017 Last Documented On 8 8:50AM ; [facility] Not using alcohol 08/12/2017 Last Documented On 8 8:50AM ; [facility] Not using drugs 08/12/2017 Last Documented On 8 8:50AM ; [facility] No tobacco use 08/12/2017 Last Documented On 8 8:50AM ; [facility] Smoking status : Never smoker 08/12/2017 Last Documented On 8 8:50AM ; [facility] Procedures and Surgical History Surgical History Last Updated History of hysterectomy 08/12/2017 Last Documented On 8 8:50AM ; [facility] Medical History Includes: Medical History in patient's chart Description Last Updated Gallbladder disease 06/24/2018 Last Documented On 9 11:57AM ; [facility] Intermittent hypertension 08/12/2017 Last Documented On 8 8:50AM ; [facility] Family History Includes: Family History in patient's chart Description Last Updated Family history of hypertension 9 Last Documented On 9 11:57AM ; [facility] No significant family history 08/12/2017 Last Documented On 8 8:50AM ; [facility] Review of Systems Review of Systems not supported for this document type No Review of Systems Recorded Mental Status Description Anxiety Functional Status No Functional Status Recorded Physical Exam Physical Exam not supported for this document type No Physical Exam Recorded Allergies Includes: Active, inactive, and resolved Allergies No Known Allergies Insurance Includes: Active Insurance Policies Plan Name Member ID Group # Subscriber Relationship Effect sridhar Dates 1 - Aetna [facility] [id number] Jessica Sawyer Self 12/31 - Unknown 2 - [employer] [id number] Jessica Sawyer Self 07/2018 - Unknown Clinical Notes Includes: Signed Clinical Notes starting from 03/14/2022 No Clinical Notes Recorded
--- OUTSIDE RECORDS SUMMARY | 2023-08-21 09:10 | XMS_ITS | Clinical Summary ---
Author Name Unknown Address [address] [place] [address] Phone Organization [facility] Address [address] [place] [address] Phone Care Team Providers Care Kick Boxer Name Role Phone Arben Rao MD Primary Care Provider [phone] Venkata MARTINEZ, Evan Young Unavailable [phone] Aziza MARTINEZ, Sonido Unavailable [phone] Reason for Visit and Chief Complaint Epidural Steroid Injection Problems Includes: Problems addressed during this encounter and other active Problems All Visits Onset Date Resolved Date Provider Condition S tatus Lower Back Pain 06/24/2018 Evan Hastings MD Act sridhar Last Documented On 9 1:54PM ; [facility] Joint Pain, Localized in the Hip 08/12/2017 Bryce Hastings MD Active Last Documented On 8 3:56PM ; [facility] Plan of Treatment No Plan of Treatment Recorded Assessments Includes: Assessments from this encounter No Assessments Recorded Medical Equipment - Implanted Devices Includes: Current Devices No Medical Equipment Recorded Medications Includes: Medications discussed during this encounter and other current Medications Current Medications (continue as prescribed) Estradiol 1 MG Oral Tablet 01/22/2019 Provider: Diagnosis: Last Documented On 9 11:36AM By Sharon Gabriel [facility] buPROPion HCl ER (SR) 150 MG Oral Tablet Extended Release 12 Hour 01/19/2019 Provider: Diagnosis: Last Documented On 9 11:36AM By Sharon Sanchez ; [facility] Adult Aspirin EC Low Strengt h 81 MG Oral Tablet Delayed Release 12/21/2018 Provider: Diagnosis: Last Documented On 9 9:55AM By Sharon Daniel ; [facility] Cetirizine HCl 10 MG Oral Capsule 12/18/2018 Provide r: Diagnosis: Last Documented On 9 9:54AM By Sharon Sanchez ; [facility] Fluzone Quadrivalent 9 MCG/S TRAIN Intradermal Suspension Pen-injector 12/08/2018 Provider: Diagnosis: Last Documented On 9 9:54AM By Sharon Sanchez ; [facility] PARoxetine HCl 10 MG Oral Tablet 12/08/2018 Provider : Diagnosis: Last Documented On 9 9:55AM By Sharon Sanchez ; [facility] Bisoprolol Fumarate 5 MG Oral Tablet 12/04/2018 Prov ider: Diagnosis: Last Documented On 9 9:54AM By June Daniel ; [facility] Drospirenone-Estradiol 0.5-1 MG Oral Tablet 11/29/2018 Provider: Diagnosis: Last Documented On 9 9:53AM By Sharon Sanchez ; [facility] Spironolactone 100MG Oral Tablet 06/24/2018 Provider : Diagnosis: Last Documented On 9 2:26PM By Dian Suárez ; [facility] Torsemide 100MG Oral Tablet 06/24/2018 Provider: Diagnosis: Last Documented On 9 2:27PM By Dian Suárez ; [facility] Medications Administered Includes: Administered Medications from this encounter No Administered Medications Recorded Results Includes: Results discussed during this encounter No Results Recorded For Specified Dates History of Present Illness Includes: History of Present Illness from this encounter No History of Present Illness Recorded Social History No Social History Recorded - Smoking Status Unknown Medical History Includes: Medical History addressed during this encounter No Medical History Recorded Family History Includes: Family History addressed during this encounter No Family History Recorded Review of Systems Includes: Review of Systems from this encounter No Review of Systems Recorded Mental Status Includes: Mental Status from this encounter No Mental Status Recorded Functional Status Includes: Functional Status from this encounter No Functional Status Recorded Physical Exam Includes: Physical Exam from this encounter No Physical Exam Recorded Allergies Includes: Active Allergies No Known Allergies Encounters Encounter Provider Location Date Check-In Time Check- Out Time Diagnosis Epidural Steroid Injection [facility] 9 9:43AM 10:11AM Insurance Includes: Active Insurance Policies Plan Name Member ID Group # Subscriber Relationship Effect sridhar Dates 1 - Aetna [facility] [id number] Jessica Corona 12/31 - Unknown 2 - [employer] [id number] Jessica Corona 07/2018 - Unknown Clinical Notes Includes: Clinical Notes from this encounter No Clinical Notes Recorded
--- OUTSIDE RECORDS SUMMARY | 2023-08-21 09:10 | XMS_ITS ---
Care Plan - [facility] Created on: August 21, 2023 SilverioJessicaKimmy : 1970 Sex: Female Author Name Unknown Address [address] [place] [address] [place] [address] Phone Organization [facility] Address [address] [place] [address] Phone Care Team Providers Care Auger Mill Operator Name Role Phone Maira MARTINEZ, Arben Plummer Primary Care Provider [phone] Venkata MARTINEZ, Evan Young Unavailable [phone] Aziza MARTINEZ, Tausneha Unavailable [phone]
--- OUTSIDE RECORDS SUMMARY | 2023-08-21 09:10 | XMS_ITS | Clinical Summary ---
Author Name Unknown Address [address] [place] [address] Phone Organization [facility] Address [address] [place] [address] Phone Care Team Providers Care Stoper Name Role Phone Arben Rao MD Primary Care Provider [phone] Venkata MARTINEZ, Evan Young Unavailable [phone] Aziza MARTINEZ, Sonido Unavailable [phone] Reason for Visit and Chief Complaint Epidural Steroid Injection Problems Includes: Problems addressed during this encounter and other active Problems All Visits Onset Date Resolved Date Provider Condition S tatus Lower Back Pain 06/24/2018 Evan Hastings MD Act sridhar Last Documented On 9 1:54PM ; [facility] Joint Pain, Localized in the Hip 08/12/2017 Bryce Hastings MD Active Last Documented On 8 3:56PM ; [facility] Plan of Treatment No Plan of Treatment Recorded Assessments Includes: Assessments from this encounter No Assessments Recorded Medical Equipment - Implanted Devices Includes: Current Devices No Medical Equipment Recorded Medications Includes: Medications discussed during this encounter and other current Medications Current Medications (continue as prescribed) Estradiol 1 MG Oral Tablet 01/22/2019 Provider: Diagnosis: Last Documented On 9 11:36AM By Sharon Gabriel [facility] buPROPion HCl ER (SR) 150 MG Oral Tablet Extended Release 12 Hour 01/19/2019 Provider: Diagnosis: Last Documented On 9 11:36AM By Sharon Sanchez ; [facility] Adult Aspirin EC Low Strengt h 81 MG Oral Tablet Delayed Release 12/21/2018 Provider: Diagnosis: Last Documented On 9 9:55AM By Sharon Daniel ; [facility] Cetirizine HCl 10 MG Oral Capsule 12/18/2018 Provide r: Diagnosis: Last Documented On 9 9:54AM By Sharon Sanchez ; [facility] Fluzone Quadrivalent 9 MCG/S TRAIN Intradermal Suspension Pen-injector 12/08/2018 Provider: Diagnosis: Last Documented On 9 9:54AM By Sharon Sanchez ; [facility] PARoxetine HCl 10 MG Oral Tablet 12/08/2018 Provider : Diagnosis: Last Documented On 9 9:55AM By Sharon Sanchez ; [facility] Bisoprolol Fumarate 5 MG Oral Tablet 12/04/2018 Prov ider: Diagnosis: Last Documented On 9 9:54AM By June Daniel ; [facility] Drospirenone-Estradiol 0.5-1 MG Oral Tablet 11/29/2018 Provider: Diagnosis: Last Documented On 9 9:53AM By Sharon Sanchez ; [facility] Spironolactone 100MG Oral Tablet 06/24/2018 Provider : Diagnosis: Last Documented On 9 2:26PM By Dian Suárez ; [facility] Torsemide 100MG Oral Tablet 06/24/2018 Provider: Diagnosis: Last Documented On 9 2:27PM By Dian Suárez ; [facility] Medications Administered Includes: Administered Medications from this [...] Encounters Encounter Provider Location Date Check-In Time Check-Out Time Diagnosis Epidural Steroid Injection Americo Sapp MD [facility] 02/13/20 19 10:17AM 10:28AM Insurance Includes: Active Insurance Policies Plan Name Member ID Group # Subscriber Relationship Effect sridhar Dates 1 - [employer]na [facility] [id number] Jessica Sawyer Self 12/31 - Unknown 2 - [facility] [id number] Jessica Corona 07/2018 - Unknown Clinical Notes Includes: Clinical Notes from this encounter No Clinical Notes Recorded
--- OUTSIDE RECORDS SUMMARY | 2023-08-21 09:10 | XMS_ITS | Clinical Summary ---
Author Name Unknown Address [address] [place] [address] Phone Organization [facility] , [facility] Address [address] [place] [address] Phone Care Team Providers Care Medical Fee Clerk Name Role Phone Maira MARTINEZ, Arben Plummer Primary Care Provider [phone] Venkata MARTINEZ, Evan Young Unavailable [phone] Aziza MARTINEZ, Sonido Unavailable [phone] Reason for Visit and Chief Complaint The Chief Complaint is: low back pain Problems Includes: Problems addressed during this encounter and other active Problems Current Visit Onset Date Resolved Date Provider Conditio n Status Lower Back Pain 06/24/2018 Evan [place] MD Act sridhar Last Documented On 9 1:54PM ; [facility], [facility] Past Visits Onset Date Resolved Date Provider Condition Status Joint Pain, Localized in the Hip 08/12/2017 Evan [place] MD Active Last Documented On 8 3:56PM ; [facility], [facility] Plan of Treatment Urine drug screen is compliant today. ORT is low. She complains of chronic low back pain which radiates in the left thigh on the lateral and posterior aspect of L4- 5 distribution with tingling numbness. Also bilateral lumbar facet joint tenderness present at L3-4-5 levels. She has a left hip joint and groin pain. MRI scan lumbar spine showed only L4-5 disc bulges. MRI scan left hip joint showed tendinitis in gluteus medius and bonnie. No hip joint abnormality other than that. physical therapy bed rest and nonsteroidal did not help above symptoms. She tried lumbar epidural injection 3 times without any long-term relief. Schedule left L4-5 selective nerve block 2 weeks. Start Wells 5 mg every 12 hours. She will need a left sacroiliac joint injection as well. Dr. [place] did not recommend lumbar surgery this time instead recommended spinal cord stimulator trial. If injectable therapy fails she will be candidate for spinal cord stimulator trial. She may need diagnostic medial branch block bilateral L3-4-5 levels. - Last Documented On 06/18/2019 2:30PM ; [facility], [facility] Instructions to patient Instructions for patient See PCP for Weight Loss Last Documented On 0 1:17PM ; [facility], [facility] Assessments Includes: Assessments from this encounter Findings Chronic low back pain with left radicular pain in L4-5 distribution with tingling and numbness. Bilateral lumbar facet joint arthritis at L3-4-5 levels. Left hip joint tendinitis and pain. - Last Documented On 06/18/2019 2:30PM ; [facility], [facility] Instructions Includes: Instructions from this encounter Instructions to patient Instructions for patient See PCP for Weight Loss Last Documented On 0 1:17PM ; [facility], [facility] Medical Equipment - Implanted Devices Includes: Current Devices No Medical Equipment Recorded Medications Includes: Medications discussed during this encounter and other current Medications New / Renewed during this visit Krystian Brooks MD on 06/18/2019 Wells 5-325 MG Oral Tablet Provider: Ba Brooks MD 30 day supply: 60 tablet, 0 refills Diagnosis: 1 tab every 12 hours Pharmacy: [id number] - [id number] [facility], [id number] - Last Documented On 0 1:56PM By Anuel [facility], [facility] Current Medications (continue as prescribed) Estradiol 1 MG Oral Tablet 01/22/2019 Provider: Diagnosis: Last Documented On 9 11:36AM By Sharon COOLS, [facility] buPROPion HCl ER (SR) 150 MG Oral Tablet Extended Release 12 Hour 01/19/2019 Provider: Diagnosis: Last Documented On 9 11:36AM By Sharon Breiner ; [facility] Adult Aspirin EC Low Strengt h 81 MG Oral Tablet Delayed Release 12/21/2018 Provider: Diagnosis: Last Documented On 9 9:55AM By June Daniel ; [facility] Cetirizine HCl 10 MG Oral Capsule 12/18/2018 Provide r: Diagnosis: Last Documented On 9 9:54AM By Sharon Sanchez ; [facility] Fluzone Quadrivalent 9 MCG/S TRAIN Intradermal Suspension Pen-injector 12/08/2018 Provider: Diagnosis: Last Documented On 9 9:54AM By Sharon Sanchez ; [facility] PARoxetine HCl 10 MG Oral Tablet 12/08/2018 Provider : Diagnosis: Last Documented On 9 9:55AM By Sharon Daniel ; [facility] Bisoprolol Fumarate 5 MG Oral Tablet 12/04/2018 Prov ider: Diagnosis: Last Documented On 9 9:54AM By Sharon Daniel ; [facility] Drospirenone-Estradiol 0.5-1 MG Oral Tablet 11/29/2018 Provider: Diagnosis: Last Documented On 9 9:53AM By Sharon Daniel ; [facility] Spironolactone 100MG Oral Tablet 06/24/2018 Provider : Diagnosis: Last Documented On 9 2:26PM By Dian Suárez ; [facility] Torsemide 100MG Oral Tablet 06/24/2018 Provider: Diagnosis: Last Documented On 9 2:27PM By Dian Suárez ; [facility] Medications Administered Includes: Administered Medications from this encounter No Administered Medications Recorded Vital Signs Includes: Vital Signs from this encounter Vital Name 06/18/2019 01:30P Height (in) 60 Weight (lb) 200 Body Mass Index (kg/m2) 39.1 Body Surface Area (m2) 1.9 Note: rd Last Documented: On 06/18/2019 1:30PM ; [facility] Results Includes: Results discussed during this encounter No Results Recorded For Specified Dates History of Present Illness Includes: History of Present Illness from this encounter JAMAL Sawyer is a 48 year old female. - Allergy list reviewed - Problem list reviewed - Medication list reviewed - Medication reconciliation performed Pain Medication: Gabapentin from sx only had one left from 2016. Last Dose: 06/17/2019 Date/Time of Last Dose:at night Current Pain(1-10): 8 Average Pain (1-10): 6-9 depends on what i am doing Worse Pain (1-10): 10+ Previous Pain Management: NO Last Time Seen: NA Treatments: Reason for leaving: NA ADL's affected by pain: Yes MVA related: NO Lawsuit w/Physician: NO Previous Surgeries: on file Previous Physical Therapy: YES Social History Description Last Updated Caffeine use 06/24/2018 Last Documented On 0 1:17PM ; [facility] Not exercising regularly 08/12/2017 Last Documented On 0 1:17PM ; [facility], [facility] Smoking Status Unknown Procedures and Surgical History Includes: Procedures from this encounter Procedures Code Diagnosis Performing Provider Service L ocation Service Date Clinical summary provided to patient Last Documented On 0 1:17PM ; [facility] Surgical History Last Updated History of hysterectomy 08/12/2017 Last Documented On 0 1:17PM ; [facility], [facility] Medical History Includes: Medical History addressed during this encounter Description Last Updated Gallbladder disease 06/24/2018 Last Documented On 0 1:17PM ; [facility] Intermittent hypertension 08/12/2017 Last Documented On 0 1:17PM ; [facility], [facility] Family History Includes: Family History addressed during this encounter Description Last Updated Family history of hypertension 9 Last Documented On 0 1:17PM ; [facility] Review of Systems Includes: Review of Systems from this encounter Systemic: Not feeling tired (fatigue), no recent weight loss, and no recent weight gain. No edema. Head: No headache and no sinus pain. Eyes: No vision problems and no glaucomatous visual field defect. Otolaryngeal: No hearing loss and no tinnitus. No nasal symptoms. Cardiovascular: No chest pain or discomfort. Chest pain or discomfort CHF. No palpitations. Pulmonary: No daytime asthma symptoms, no cough, and no wheezing. Gastrointestinal: No heartburn and no abdominal pain. Endocrine: No hot flashes and no muscle weakness. Hematologic: No easy bleeding and no tendency for easy bruising. Musculoskeletal: No lower back pain. No soft tissue swelling and no localized joint pain. Neurological: No dizziness, no convulsions, and no numbness. Psychological: Anxiety. No emotional lability. Depression. No insomnia. Not crying for no reason. Skin: No dry skin, no rash, and no ulcers. Allergic and Immunologic: No complaint of seasonal allergic reaction. reviewed 06/18/2019 Mental Status Includes: Mental Status from this encounter Description Anxiety Functional Status Includes: Functional Status from this encounter No Functional Status Recorded Physical Exam Includes: Physical Exam from this encounter Allergies Includes: Active Allergies No Known Allergies Encounters Encounter Provider Location Date Check-In Time Check-Out Time Diagnosis IN HOUSE REFERRAL Krystian Brooks MD [facility] 06/18/19 1:15PM 1:53PM Insurance Includes: Active Insurance Policies Plan Name Member ID Group # Subscriber Relationship Effect sridhar Dates 1 - Aetna [facility] [id number] Jessica Corona 12/31 - Unknown 2 - NOHEMI [id number] Jessica Sawyer Self 07/2018 - Unknown Clinical Notes Includes: Clinical Notes from this encounter No Clinical Notes Recorded
--- OUTSIDE RECORDS SUMMARY | 2023-08-21 09:10 | XMS_ITS | Clinical Summary ---
Author Name Unknown Address [address] [place] [address] Phone Organization [facility] Address [address] [place] [address] Phone Care Team Providers Care Snowsport Instructor Name Role Phone Maira MARTINEZ, Arben Plummer [...] Documented On 9 1:54PM ; [facility], [facility] Past Visits Onset Date Resolved Date Provider Condition Status Joint Pain, Localized in the Hip 08/12/2017 [place] MD Active Last Documented On 8 3:56PM ; [facility], [facility] Plan of Treatment Instructions to patient Instructions for patient see pcp for weight and BP Last Documented On 9 9:48AM ; [facility], [facility] Lose weight Last Documented On 9 9:48AM ; [facility] Assessments Includes: Assessments from this encounter No Assessments Recorded Instructions Includes: Instructions from this encounter Instructions to patient Instructions for patient see pcp for weight and BP Last Documented On 9 9:48AM ; [facility], [facility] Lose weight Last Documented On 9 9:48AM ; [facility] Medical Equipment - Implanted Devices Includes: Current Devices No Medical Equipment Recorded Medications Includes: Medications discussed during this encounter and other current Medications Current Medications (continue as prescribed) Estradiol 1 MG Oral Tablet 01/22/2019 Provider: Diagnosis: Last Documented On 9 11:36AM By Sharon Sanchez ; [facility] buPROPion HCl ER (SR) 150 MG Oral Tablet Extended Release 12 Hour 01/19/2019 Provider: Diagnosis: Last Documented On 9 11:36AM By Sharon Sanchez ; [facility] Adult Aspirin EC Low Strengt h 81 MG Oral Tablet Delayed Release 12/21/2018 Provider: Diagnosis: Last Documented On 9 9:55AM By Sharon Sanchez ; [facility] Cetirizine HCl 10 MG Oral Capsule 12/18/2018 Provide r: Diagnosis: Last Documented On 9 9:54AM By Sharon Sanchez ; [facility] Fluzone Quadrivalent 9 MCG/S TRAIN Intradermal Suspension Pen-injector 12/08/2018 Provider: Diagnosis: Last Documented On 9 9:54AM By Sharon Sanchez ; [facility] PARoxetine HCl 10 MG Oral Tablet 12/08/2018 Provider : Diagnosis: Last Documented On 9 9:55AM By Sharon Sanchez ; [facility] Bisoprolol Fumarate 5 MG Oral Tablet 12/04/2018 Prov ider: Diagnosis: Last Documented On 9 9:54AM By Sharon Sanchez ; [facility] Drospirenone-Estradiol 0.5-1 MG Oral Tablet 11/29/2018 Provider: Diagnosis: Last Documented On 9 9:53AM By Sharon Sanchez ; [facility] Spironolactone 100MG Oral Tablet 06/24/2018 Provider : Diagnosis: Last Documented On 9 2:26PM By Dian Suárez ; [facility] Torsemide 100MG Oral Tablet 06/24/2018 Provider: Diagnosis: Last Documented On 9 2:27PM By Dian Suárez ; [facility] Past Medications on file Ireton 5-325 MG Oral Tablet 06/18/2019 - 07/18/2019 Pro vider: Krystian Brooks MD Diagnosis: 1 tab every 12 hours Last Documented On 0 1:56PM By Anuel Casper ; [facility], [facility] Medications Administered Includes: Administered Medications from this encounter No Administered Medications Recorded Results Includes: Results discussed during this encounter No Results Recorded For Specified Dates History of Present Illness Includes: History of Present Illness from this encounter JAMAL Sawyer is a 48 year old female. - Allergy list reviewed - Problem list reviewed - Medication list reviewed with patient - Medication reconciliation performed Social History Description Last Updated Caffeine use 06/24/2018 Last Documented On 9 9:48AM ; [facility], [facility] No recent change in diet 08/12/2017 Last Documented On 9 9:48AM ; [facility], [facility] Not a current smoker 08/12/2017 Last Documented On 9 9:48AM ; [facility], [facility] Not exercising regularly 08/12/2017 Last Documented On 9 9:48AM ; [facility], [facility] Not using alcohol 08/12/2017 Last Documented On 9 9:48AM ; [facility], [facility] Not using drugs 08/12/2017 Last Documented On 9 9:48AM ; [facility], [facility] No tobacco use 08/12/2017 Last Documented On 9 9:48AM ; [facility], [facility] Smoking status : Never smoker 08/12/2017 Last Documented On 9 9:48AM ; [facility], [facility] Procedures and Surgical History Includes: Procedures from this encounter Procedures Code Diagnosis Performing Provider Service L ocation Service Date Clinical summary provided to patient Last Documented On 9 9:48AM ; [facility], [facility] Surgical History Last Updated History of hysterectomy 08/12/2017 Last Documented On 9 9:48AM ; [facility], [facility] Medical History Includes: Medical History addressed during this encounter Description Last Updated Gallbladder disease 06/24/2018 Last Documented On 9 9:48AM ; [facility], [facility] Intermittent hypertension 08/12/2017 Last Documented On 9 9:48AM ; [facility] Family History Includes: Family History addressed during this encounter Description Last Updated Family history of hypertension 9 Last Documented On 9 9:48AM ; [facility] No significant family history 08/12/2017 Last Documented On 9 9:48AM ; [facility] Review of Systems Includes: Review of Systems [...] Immunologic: No complaint of seasonal allergic reaction. Mental Status Includes: Mental Status from this encounter Description Anxiety Functional Status Includes: Functional Status from this encounter No Functional Status Recorded Physical Exam Includes: Physical Exam from this encounter No Physical Exam Recorded Allergies Includes: Active Allergies No Known Allergies Encounters Encounter Provider Location Date Check-In Time Check- Out Time Diagnosis Follow Up [place] MD [facility] 9 9:46AM 11:06AM Insurance Includes: Active Insurance Policies Plan Name Member ID Group # Subscriber Relationship Effect sridhar Dates 1 - [employer]etna [facility] [id number] Jessica Sawyer Self 12/31 - Unknown 2 - [employer]HEMI [id number] Jessica Sawyer Self 07/2018 - Unknown Clinical Notes Includes: Clinical Notes from this encounter No Clinical Notes Recorded
--- OUTSIDE RECORDS SUMMARY | 2023-08-21 09:10 | XMS_ITS | Clinical Summary ---
Author Name Unknown Address [address] [place] [address] Phone Organization [facility] , [facility] Address [address] [place] [address] Phone Care Team Providers Care Knockout Machine Operator Name Role Phone Maira MARTINEZ, Arben Plummer Primary Care Provider [phone] Venkata MARTINEZ, Evan Young Unavailable [phone] Sonido Ervin MD Unavailable [phone] Reason for Visit and Chief Complaint The Chief Complaint is: low back pain Problems Includes: Problems addressed during this encounter and other active Problems Current Visit Onset Date Resolved Date Provider Conditio n Status Lower Back Pain 06/24/2018 [place] MD Act sridhar Last Documented On 9 1:54PM ; [facility], [facility] Past Visits Onset Date Resolved Date Provider Condition Status Joint Pain, Localized in the Hip 08/12/2017 [place] MD Active Last Documented On 8 3:56PM ; [facility], [facility] Plan of Treatment Instructions to patient Instructions for patient See PCP for Weight Loss Last Documented On 0 3:18PM ; [facility], [facility] Assessments Includes: Assessments from this encounter No Assessments Recorded Instructions Includes: Instructions from this encounter Instructions to patient Instructions for patient See PCP for Weight Loss Last Documented On 0 3:18PM ; [facility], [facility] Medical Equipment - Implanted Devices Includes: Current Devices No Medical Equipment Recorded Medications Includes: Medications discussed during this encounter and other current Medications Current Medications (continue as prescribed) Estradiol 1 MG Oral Tablet 01/22/2019 Provider: Diagnosis: Last Documented On 9 11:36AM By Sharon Sanchez ; [facility] buPROPion HCl ER (SR) 150 MG Oral Tablet Extended Release 12 Hour 01/19/2019 Provider: Diagnosis: Last Documented On 9 11:36AM By Sharon Sanchez ; [facility] Adult Aspirin EC Low Strengt h 81 MG Oral Tablet Delayed Release 12/21/2018 Provider: Diagnosis: Last Documented On 9 9:55AM By Sharon Sanchez ; [facility] Cetirizine HCl 10 MG Oral Capsule 12/18/2018 Provide r: Diagnosis: Last Documented On 9 9:54AM By Sharon Daniel ; [facility] Fluzone Quadrivalent 9 MCG/S TRAIN Intradermal Suspension Pen-injector 12/08/2018 Provider: Diagnosis: Last Documented On 9 9:54AM By Sharon Sanchez ; [facility] PARoxetine HCl 10 MG Oral Tablet 12/08/2018 Provider : Diagnosis: Last Documented On 9 9:55AM By Sharon Sanchez ; [facility] Bisoprolol Fumarate 5 MG Oral Tablet 12/04/2018 Prov ider: Diagnosis: Last Documented On 9 9:54AM By Sharon Sanchez ; [facility] Drospirenone-Estradiol 0.5-1 MG Oral Tablet 11/29/2018 Provider: Diagnosis: Last Documented On 9 9:53AM By Sharon Sanchez ; [facility] Spironolactone 100MG Oral Tablet 06/24/2018 Provider : Diagnosis: Last Documented On 9 2:26PM By Dian Suárez ; [facility], [facility] Torsemide 100MG Oral Tablet 06/24/2018 Provider: Diagnosis: Last Documented On 9 2:27PM By Dian Suárez ; [facility] Past Medications on file Bacova 5-325 MG Oral Tablet 06/18/2019 - 07/18/2019 Pro vider: Krystian Brooks MD Diagnosis: 1 tab every 12 hours Last Documented On 0 1:56PM By Anuel Casper ; [facility] Medications Administered Includes: Administered Medications from this encounter No Administered Medications Recorded Vital Signs Includes: Vital Signs from this encounter Vital Name 05/31/2019 03:17P Blood Pressure Sitting (mmHg) 125/79 Pulse Rate-Sitting (bpm) 78 Height (in) 60 Weight (lb) 190 Body Mass Index (kg/m2) 37.1 Body Surface Area (m2) 1.8 Last Documented: On 05/31/2019 3:38PM ; [facility], [facility] Results Includes: Results discussed during this encounter No Results Recorded For Specified Dates History of Present Illness Includes: History of Present Illness from this encounter HPI Jessica Sawyer is a 48 year old female. - Allergy list reviewed - Problem list reviewed - Medication list reviewed - Medication reconciliation performed Social History Description Last Updated Caffeine use 06/24/2018 Last Documented On 0 3:16PM ; [facility] No recent change in diet 08/12/2017 Last Documented On 0 3:16PM ; [facility], [facility] Not a current smoker 08/12/2017 Last Documented On 0 3:16PM ; [facility], [facility] Not exercising regularly 08/12/2017 Last Documented On 0 3:16PM ; [facility], [facility] Not using alcohol 08/12/2017 Last Documented On 0 3:16PM ; [facility], [facility] Not using drugs 08/12/2017 Last Documented On 0 3:16PM ; [facility] No tobacco use 08/12/2017 Last Documented On 0 3:16PM ; [facility] Smoking status : Never smoker 08/12/2017 Last Documented On 0 3:16PM ; [facility], [facility] Procedures and Surgical History Includes: Procedures from this encounter Procedures Code Diagnosis Performing Provider Service L ocation Service Date Clinical summary provided to patient Last Documented On 0 3:16PM ; [facility], [facility] Surgical History Last Updated History of hysterectomy 08/12/2017 Last Documented On 0 3:16PM ; [facility], [facility] Medical History Includes: Medical History addressed during this encounter Description Last Updated Gallbladder disease 06/24/2018 Last Documented On 0 3:16PM ; [facility] Intermittent hypertension 08/12/2017 Last Documented On 0 3:16PM ; [facility] Family History Includes: Family History addressed during this encounter Description Last Updated Family history of hypertension 9 Last Documented On 0 3:16PM ; [facility] No significant family history 08/12/2017 Last Documented On 0 3:16PM ; [facility] Review of Systems Includes: Review of [...] Time Diagnosis Follow Up Evan [place] MD [facility] 0 2:35PM 4:00PM Insurance Includes: Active Insurance Policies Plan Name Member ID Group # Subscriber Relationship Effect sridhar Dates 1 - [employer]etna [facility] [id number] Jessica Sawyer Self 12/31 - Unknown 2 - [employer]HEMI [id number] Jessica Sawyer Self 07/2018 - Unknown Clinical Notes Includes: Clinical Notes from this encounter No Clinical Notes Recorded
[2023-08-21 09:25] VITALS: BP 108/77; RESP 16; O2SAT 97; BMI 44.9
--- NOTE | 2023-08-21 09:35 | EXP.PAIN.SOA ---
[facility] [place] Pain Management SOAP Note Subjective:: Patient is a pleasant 52-year-old female who presents today for 1 month follow-up. Today she rates her pain a 5 out of 10. Patient does state that she has gone back to her baseline from her last lumbar epidural injection. Patient did previously have a LESI L5-S1 back at the beginning of June that did provide 85% relief and lasted up until the last week or so. Patient states when this injection was working well she had overall improved function and decreased pain. Patient states that now her pain is back to being a chronic aching, throbbing sensation with numbness and tingling into her legs. Patient states the pain does interfere with her ability to perform activities of daily living such as cooking and cleaning. Patient is interested in additional injection therapy due to how well her last injection worked. Patient is currently managed with tizanidine 4 mg at at bedtime, methocarbamol 500 mg twice a day and Tylenol 3 daily from our office. She denies any side effects from this medication. Her Alex has been reviewed and is appropriate. Review of Systems: General: No recent weight changes, no fever, no sleep disturbances Respiratory: No cough, no shortness of air, no recurring pulmonary infections Cardiovascular/peripheral vascular: No chest pain, no palpitations, no edema, no shortness of breath Gastrointestinal: No new onset incontinence, normal bowel movements reported Genitourinary: No new onset incontinence Musculoskeletal: Low back pain, bilateral leg pain Psychiatric: [Normal mood/affect] Neurological: [Denies weakness in extremities], [denies balance issues] Objective:: Physical Exam: General: Alert and oriented x3, no acute distress, pleasant and cooperative Lungs: Respirations even and unlabored, symmetrical chest expansion Eyes: PERRL Musculoskeletal: Flexion and extension of lumbar [spine] somewhat guarded secondary to pain, [antalgic gait noted] positive bilateral leg raise Neurological: Speech clear, no gross sensory deficit Assessment:: Degenerative disc disease of cervical and lumbar spine with cervical and lumbar radiculopathy symptoms, cervical spinal stenosis Plan:: Patient is experiencing worsening pain in her low back and legs with limited range of motion of her lumbar spine. Patient had bilateral positive leg raises. I have discussed with patient that she may benefit from a repeat lumbar epidural steroid injection. Patient did also have point tenderness along her lower lumbar spine. Patient would like to proceed forward with this option. She did previously have 85% relief for over a month and a half with her last lumbar epidural. Patient did have improved overall function and was able to do more and not take as much medication due to the decrease in pain. I will refill her tizanidine, methocarbamol and Tylenol 3 and provide a 1 month supply of these medications. Patient will be scheduled for a LESI L5-S1 under fluoroscopy. Patient is currently on blood thinners and will have to stop these prior to her injection. We will reach out to Dr. Stratton's office and confirm she can stop this medication prior to the injection. Risks and benefits of the medication have been explained in detail to the patient. The patient does understand the risk of dependence on the medication when given over a prolonged period. Patient has been advised of risks of oversedation with the prescribed medication. Narcan has been offered to the paitent in the event of oversedation. Patient has been advised that a family member should also be educated regarding administration of Narcan. The patient has been advised to consult with his/her primary care provider and pharmacist regarding drug-drug interaction of medications currently prescribed. Patient has been prescribed a controlled substance after being counseled on the medication, medication safety, and possible side effects. Opioid contract was reviewed and signed by the patient, and that they have agreed to all of the terms set forth by our compliance program. Patient has been instructed to contact the clinic with any concerns before the next appointment. Dr. Kirk has reviewed this note and agrees with this plan of care. This note was dictated using voice recognition software and make contain errors or omissions. [facility] Disclaimer: The information contained in this section may have been updated after the patient was seen, as this information can be updated by other users. Medical History Abnormal cardiovascular stress test Asthma COPD (chronic obstructive pulmonary disease) Hyperlipidemia Hyperlipidemia associated with type 2 diabetes mellitus Morbidly obese Coronary artery disease Typical angina Abnormal result of cardiovascular function study Tachycardia Diastolic dysfunction HTN (hypertension) Edema Dyspnea Chest pain BMI 36.0-36.9,adult Depression Family History Other No significant family history Social History Smoking Status: Never smoker second hand exposure: No alcohol intake: never substance use type: denies use current occupational status: other Travel in the last 8 weeks: None household members: none housing: house current occupational exposures/hazards: No caffeine: Yes
== END 2023-08-21 23:59 | disposition home or self-care (01) ==
PROVIDERS: PCP Physician Assistant; Visit Provider Nurse Practitioner Family
DX: M50.10 Cervical disc disorder with radiculopathy, unspecified cervical region (principal); M51.16 Intervertebral disc disorders with radiculopathy, lumbar region; M48.02 Spinal stenosis, cervical region
CPT/HCPCS: 99212; G0463

== ENCOUNTER 2023-09-09 13:16 | Day surgery (SDC) | payer MEDICARE, MEDICAID, SELFPAY ==
[2023-09-09 13:33] VITALS: BP 153/80; PULSE 73; RESP 18; TEMP 36.4; O2SAT 98; BMI 44.9
[2023-09-09] MEDS: methylPREDNISolone ACETATE 80MG/ML VIAL 80 MG (13:38)
[2023-09-09 13:40] VITALS: BP 149/68; PULSE 88; RESP 18; O2SAT 96
[2023-09-09 13:41] VITALS: BP 149/68; PULSE 88; RESP 18; O2SAT 96
--- NOTE | 2023-09-09 13:52 | EXP.PAIN.PRO ---
Procedure Date: 09/09/23 Time: 13:40 Anesthesiologist:: Smith Segura CRNA Complications:: None Pre-procedure Diagnosis:: Degenerative disc lumbar spine multilevels. Lumbar radiculopathy. Post-procedure Diagnosis:: Same. Indications for Procedure:: Patient is a pleasant 52-year-old female comes our clinic today for repeat lumbar epidural steroid injection at the L5-S1 level. She had significant improvement 85% or more from her last injection at the same level. She describes low back pain as well as bilateral hip and leg radicular symptoms at times. She rates her pain 7/10. Procedure Details:: Procedure: Lumbar epidural steroid injection under fluoroscopy Informed consent was obtained and the risks and benefits of the procedure were explained to the patient. The patient was taken to the procedure room and noninvasive monitors placed, including noninvasive blood pressure cuff and pulse oximeter. The back was viewed using C-arm Fluoroscopy and prepped using Chloraprep as a cleansing solution and the L5-S1 interspace was palpated. Skin and subcutaneous tissues were anesthetized using lidocaine 1.5% and a 25-gauge needle. After this, an 18-gauge Touhy epidural needle was placed into the L5-S1 interspace and advanced using fluoroscopic guidance and loss of resistance to air until the epidural space was encountered. After confirmation of needle placement in the epidural space, with dye, a solution containing normal saline, 3 mL and Depo-Medrol 80 mg were incrementally injected into the lumbar epidural space. The patient tolerated the procedure well with no complications. The patient was observed in the Pain Clinic and then discharged home neurologically intact. Plan and Disposition:: Patient was discharged without incident.
[2023-09-09 13:55] VITALS: BP 130/71; PULSE 85; RESP 16; O2SAT 97
== END 2023-09-09 13:55 | disposition home or self-care (01) ==
PROVIDERS: PCP Physician Assistant; Visit Provider Nurse Anesthetist, Certified Registered
DX: M51.16 Intervertebral disc disorders with radiculopathy, lumbar region (principal)
CPT/HCPCS: 62323; J1010

== ENCOUNTER 2023-10-09 09:26 | Outpatient (POV) | payer MEDICARE, MEDICAID, SELFPAY ==
[2023-10-09 09:52] VITALS: BP 140/71; PULSE 94; RESP 18; O2SAT 95; BMI 44.4
--- NOTE | 2023-10-09 09:59 | EXP.PAIN.SOA ---
[facility] Disclaimer: The information contained in this section may have been updated after the patient was seen, as this information can be updated by other users. Medical History Abnormal cardiovascular stress test Asthma COPD (chronic obstructive pulmonary disease) Hyperlipidemia Hyperlipidemia associated with type 2 diabetes mellitus Morbidly obese Coronary artery disease Typical angina Abnormal result of cardiovascular function study Tachycardia Diastolic dysfunction HTN (hypertension) Edema Dyspnea Chest pain BMI 36.0-36.9,adult Depression Family History Other No significant family history Social History Smoking Status: Never smoker second hand exposure: No alcohol intake: never substance use type: denies use current occupational status: other Travel in the last 8 weeks: None household members: none housing: house current occupational exposures/hazards: No caffeine: Yes PM Subjective & Objective Subjective Subjective:: Patient is a pleasant 52-year-old female who presents today for medication refill and follow-up of lumbar epidural steroid injection L5-S1 on 09/09/2023. Today she rates her pain a 6 out of 10. She does state that she has had at least 85% improvement following this injection. She feels like the pain is much more bearable and not as severe. She states she has been able to sleep through the night and even turn over without having the shooting pains. Patient does states she still has some that she can deal with this. Patient is managed with tizanidine 4 mg at bedtime, methocarbamol 500 mg twice a day and Tylenol 3 daily. She denies any side effects from this medication. Her Alex has been reviewed and is appropriate. Review of Systems: General: No recent weight changes, no fever, no sleep disturbances Respiratory: No cough, no shortness of air, no recurring pulmonary infections Cardiovascular/peripheral vascular: No chest pain, no palpitations, no edema, no shortness of breath Gastrointestinal: No new onset incontinence, normal bowel movements reported Genitourinary: No new onset incontinence Musculoskeletal: Low back pain Psychiatric: [Normal mood/affect] Neurological: [Denies weakness in extremities], [denies balance issues] Pain at rest (0-10 scale): 6 Objective Objective:: Physical Exam: General: Alert and oriented x3, no acute distress, pleasant and cooperative Lungs: Respirations even and unlabored, symmetrical chest expansion Eyes: PERRL Musculoskeletal: Flexion and extension of lumbar [spine] somewhat guarded secondary to pain, [antalgic gait noted] Neurological: Speech clear, no gross sensory deficit Has patient had previous pain injection?: Yes Percent improvement in pain since last injection: 85% Conservative treatment options previously tried: Home exercise plan Length of treatment: Longer than 6 weeks and Prescription medications Length of treatment: Longer than 6 weeks Meds Home Medications and Allergies Home Medications Medication Instructions Recorded Confirmed Type estradiol 1 mg tablet 1 mg PO DAILY Supplement 12/08/19 10/09/23 History methylcellulose (with sugar) oral 1 tbsp PO DAILY PRN Constipation 04/03/21 10/09/23 History powder (Citrucel (sucrose) oral powder) polyethylene glycol 3350 17 17 g PO DAILY PRN Constipation 04/03/21 10/09/23 History gram/dose oral powder (Miralax) trazodone 50 mg tablet 50 mg PO HS Insomnia 07/17/21 10/09/23 History prazosin 1 mg capsule 1 mg PO DAILY High blood pressure 07/20/21 10/09/23 History aspirin 81 mg tablet,delayed 81 mg PO DAILY Heart health 01/07/22 10/09/23 History release albuterol sulfate 5 mg/mL(0.5 %) 5 mg inhalation Q4H PRN COPD 12/18/22 10/09/23 Rx solution for nebulization #4,500 mL clopidogrel 75 mg tablet (Plavix) 75 mg PO QDAY #90 tabs 01/15/23 10/09/23 Rx spironolactone 100 mg tablet See Rx Instructions .Route 02/12/23 10/09/23 Rx .COMPLEX #90 tabs buspirone 5 mg tablet 5 mg PO BID #180 tabs 04/24/23 10/09/23 Rx cariprazine 1.5 mg capsule 1.5 mg PO DAILY #90 caps 04/24/23 10/09/23 Rx (Vraylar) budesonide-formoterol HFA 160 See Rx Instructions .Route 05/27/23 10/09/23 Rx mcg-4.5 mcg/actuation aerosol .COMPLEX #10.2 grams inhaler bisoprolol fumarate 5 mg tablet See Rx Instructions .Route 06/13/23 10/09/23 Rx .COMPLEX #90 tabs bumetanide 2 mg tablet See Rx Instructions .Route 07/10/23 10/09/23 Rx .COMPLEX #90 tabs escitalopram oxalate 20 mg tablet 20 mg PO DAILY 07/30/23 10/09/23 History estradiol 0.01% (0.1 mg/gram) 1 applic vaginal DIRECTED 07/30/23 10/09/23 History vaginal cream linaclotide 145 mcg capsule 145 mcg PO DAILY #30 caps 07/30/23 10/09/23 Rx (Linzess) pantoprazole 40 mg tablet,delayed 40 mg PO DAILY #30 tabs 07/30/23 10/09/23 Rx release (Protonix) atorvastatin 10 mg tablet See Rx Instructions .Route 08/20/23 10/09/23 Rx .COMPLEX #90 tabs acetaminophen 300 mg-codeine 30 mg 1 tab PO DAILY #30 tabs 08/21/23 10/09/23 Rx tablet methocarbamol 500 mg tablet 500 mg PO BID Pain #60 tabs 08/21/23 10/09/23 Rx tizanidine 4 mg tablet (Zanaflex) 4 mg PO HS Pain #30 tabs 08/21/23 10/09/23 Rx New Prescriptions to Start Prescriptions: Allergies Allergy/AdvReac Type Severity Reaction Status Date / Time No Known Allergies Allergy Verified 07/30/23 09:35 Assessment and Plan *Assessment and plan (1) Degenerative disc disease, lumbar: Status: Acute Category: Medical Code(s): M51.36 - Other intervertebral disc degeneration, lumbar region (2) Lumbar radiculopathy: Status: Acute Category: Medical Code(s): M54.16 - Radiculopathy, lumbar region Plan Patient has had significant improvement following her lumbar epidural and does not require any additional injection therapy at this time. I will refill the patient's tizanidine, methocarbamol and Tylenol 3 and provide a 1 month supply of this medication. Patient will return to clinic in 1 month for reevaluation of symptoms and plan of care. Risks and benefits of the medication have been explained in detail to the patient. The patient does understand the risk of dependence on the medication when given over a prolonged period. Patient has been advised of risks of oversedation with the prescribed medication. Narcan has been offered to the paitent in the event of oversedation. Patient has been advised that a family member should also be educated regarding administration of Narcan. The patient has been advised to consult with his/her primary care provider and pharmacist regarding drug-drug interaction of medications currently prescribed. Patient has been prescribed a controlled substance after being counseled on the medication, medication safety, and possible side effects. Opioid contract was reviewed and signed by the patient, and that they have agreed to all of the terms set forth by our compliance program. Patient has been instructed to contact the clinic with any concerns before the next appointment. Dr. Kirk has reviewed this note and agrees with this plan of care. This note was dictated using voice recognition software and make contain errors or omissions.
== END 2023-10-09 23:59 | disposition home or self-care (01) ==
PROVIDERS: PCP Physician Assistant; Visit Provider Nurse Practitioner Family
DX: M51.36 Other intervertebral disc degeneration, lumbar region (principal); M54.16 Radiculopathy, lumbar region; G89.29 Other chronic pain
CPT/HCPCS: 99212; G0463

== ENCOUNTER 2023-10-22 12:57 | Emergency (ER) | payer MEDICARE, MEDICAID, SELFPAY ==
[2023-10-22] VITALS (7 sets, daily range): BP systolic 114–139; BP diastolic 63–95; PULSE 69–88; RESP 12–22; TEMP 36.9; O2SAT 95–96; BMI 50.8
--- NOTE | 2023-10-22 13:03 | ECG_ITS ---
APPROVED REPORT Exam: Resting ECG HR:82 bpm ECG Measurements Heart Rate 82 AXES HI 149 P 45 QRSd 84 QRS 43 QT 367 T 55 QTc 405 Conclusion SINUS RHYTHM NORMAL ECG Electronically signed by : MARISSA MCCULLOUGH, 10/22/2023 16:29:38
--- NOTE | 2023-10-22 13:12 | XR_ITS ---
FINAL REPORT CLINICAL HISTORY: pain ring finger, fall FINDINGS: Three views show no evidence of acute displaced fracture or dislocation of the visualized bony architecture. The joint spaces appear normal. IMPRESSION: Unremarkable exam. Reviewed, Interpreted and Dictated by Willow Zavala MD Transcribed by Shereen Mason Authenticated and [facility]
[2023-10-22 13:19] LABS: Basophils # 0.1 K/mm3 (0-0.2); Eosinophils # 0.1 K/mm3 (0.0-0.4); Eosinophils % 1.3 % (0.1-12.0); Hematocrit 46.6 % (37.0-47.0); Lymphocytes # 3.5 K/mm3 (0.7-4.5); Lymphocytes % 33.3 % (10-50); Mean Corpuscular HGB Conc 34.3 g/dL (31.8-35.4); Mean Corpuscular Hemoglobin 32.9 pg (27.0-31.2); Mean Corpuscular Volume 95.9 fl (81-99); Mean Platelet Volume 9.1 fl (7.4-10.4); Monocytes # 0.6 K/mm3 (0.1-1.0); Monocytes % 6.1 % (1.7-9.3); Neutrophils % 58.2 % (37.0-80.0); Platelet Count 314 K/mm3 (142-424); Red Blood Count 4.86 M/mm3 (4.20-5.40); Red Cell Distribution Width 13.8 % (11.5-17.5); White Blood Count 10.4 K/mm3 (4.8-10.8)
[2023-10-22] MEDS: LACTATED RINGERS 1000ML 1,000 ML 999 ML IV ×2 (13:30→15:32)
[2023-10-22 13:31] LABS: Alanine Aminotransferase 37 U/L (12-78); Albumin Level 4.5 g/dl (3.5-5.0); Albumin/Globulin Ratio 1.3 (1.1-1.8); Alkaline Phosphatase 86 U/L (38-126); Anion Gap 11.9 mEq/L (5-15); Aspartate Amino Transferase 37 U/L (14-36); Bilirubin,Total 0.8 mg/dl (0.2-1.3); Blood Urea Nitrogen 32 mg/dl (7-17); Calcium 9.8 mg/dl (8.4-10.2); Carbon Dioxide 25 mmol/L (22.0-30.0); Chloride 105 mmol/L (98-107); Creatinine Clearance Estimated 36 mL/min (50-200); Estimated Glomerular Filt Rate 43 ml/min (>60); GFR (African American) 52 ML/MIN (>60); Globulin 3.5 g/dL (1.3-3.2); Glucose 112 mg/dl (74-100); Potassium 3.9 mmoL/L (3.5-5.1); Sodium 138 mmol/L (136-145)
[2023-10-22 13:35] LABS: D-Dimer 0.29 ug/mL (0.0-0.5)
--- NOTE | 2023-10-22 13:53 | HMH.EDGENADL ---
Discharge Plan Disposition Patient Disposition: Home, Self-Care Condition: Good Prescriptions Prescriptions: No Action estradiol 1 mg tablet 1 mg PO DAILY Patient Comments: TAKE 1 TABLET BY MOUTH EVERY DAY prazosin 1 mg capsule 1 mg PO DAILY buspirone 5 mg tablet 5 mg PO BID Qty: 180 0RF Vraylar 1.5 mg capsule 1.5 mg PO DAILY Qty: 90 0RF polyethylene glycol 3350 [Miralax] 17 gram/dose powder 17 g PO DAILY PRN (Reason: Constipation) Citrucel (sucrose) Powder 1 tbsp PO DAILY PRN (Reason: Constipation) trazodone 50 mg tablet 50 mg PO HS clopidogrel [Plavix] 75 mg tablet 75 mg PO QDAY Qty: 90 3RF estradiol 0.01 % (0.1 mg/gram) cream 1 applic vaginal DIRECTED escitalopram oxalate 20 mg tablet 20 mg PO DAILY Patient Comments: TAKE ONE TABLET BY MOUTH EVERY DAY pantoprazole [Protonix] 40 mg tablet,delayed release (DR/EC) 40 mg PO DAILY Qty: 30 2RF Linzess 145 mcg capsule 145 mcg PO DAILY Qty: 30 2RF albuterol sulfate 5 mg/mL solution for nebulization 5 mg INHALATION Q4H PRN (Reason: COPD) Qty: 4500 2RF spironolactone 100 mg tablet See Rx Instructions .ROUTE .COMPLEX Qty: 90 1RF Dose Instruction: TAKE ONE TABLET BY MOUTH EVERY DAY Rx Instructions: TAKE ONE TABLET BY MOUTH EVERY DAY budesonide-formoterol 160-4.5 mcg/actuation HFA aerosol inhaler See Rx Instructions .ROUTE .COMPLEX Qty: 10.2 2RF Dose Instruction: INHALE TWO PUFFS BY MOUTH TWICE DAILY Rx Instructions: INHALE TWO PUFFS BY MOUTH TWICE DAILY bisoprolol fumarate 5 mg tablet See Rx Instructions .ROUTE .COMPLEX Qty: 90 3RF Dose Instruction: TAKE ONE TABLET BY MOUTH EVERY DAY FOR BLOOD PRESSURE Rx Instructions: TAKE ONE TABLET BY MOUTH EVERY DAY FOR BLOOD PRESSURE bumetanide 2 mg tablet See Rx Instructions .ROUTE .COMPLEX Qty: 90 2RF Dose Instruction: TAKE ONE TABLET BY MOUTH TWICE DAILY FOR heart failure AND MAY take extra 1 TABLET NEEDED FOR swelling Rx Instructions: TAKE ONE TABLET BY MOUTH TWICE DAILY FOR heart failure AND MAY take extra 1 TABLET NEEDED FOR swelling atorvastatin 10 mg tablet See Rx Instructions .ROUTE .COMPLEX Qty: 90 0RF Dose Instruction: TAKE ONE TABLET BY MOUTH EVERY DAY AT BEDTIME FOR CHOLESTEROL Rx Instructions: TAKE ONE TABLET BY MOUTH EVERY DAY AT BEDTIME FOR CHOLESTEROL aspirin 81 mg tablet,delayed release (DR/EC) 81 mg PO DAILY methocarbamol 500 mg tablet 500 mg PO BID Qty: 60 0RF tizanidine [Zanaflex] 4 mg tablet 4 mg PO HS Qty: 30 0RF acetaminophen-codeine 300-30 mg tablet 1 tab PO DAILY Qty: 30 0RF Referrals Follow up/Referrals: Maria Esther Santo PA [Primary Care Provider] - See instructions Chaz Hastings DO [Staff Physician] - See instructions Activity Restrictions/Add. Instructions Additional Instructions/Restrictions: You were evaluated in the emergency department today. Please keep your splint on your finger. You may take Tylenol and ibuprofen at home as needed for pain. Make sure that you stay very hydrated. Use caution when going from seated to standing. Follow-up with your primary care provider over the next 48 hours for reassessment of your kidney function. Return to the emergency department for new or worsening symptoms. For your finger, we provided you with information for orthopedics for further recommendations if you continue to have pain and swelling. You may also choose to follow-up with a hand specialist. Clinical Impressions Clinical Impression: Dehydration, Syncope, ION (acute kidney injury), Strain of flexor muscle, fascia and tendon of left ring finger at wrist and hand level, initial encounter Stand Alone Forms Stand Alone Forms: Work/School Release Instructions Patient Instructions: DI for Syncope in Adults (Fainting), Acute Kidney Injury, DI for Finger Sprain, DI for Finger Flexor Tendon Injury Print Language Print Language: Sen[place]alese Discharge ED Provider: Martha Ruffin General Adult HPI General Chief complaint: Syncope Stated complaint: broken finger, passing out Time Seen by Provider: 10/22/23 13:12 Mode of Arrival: Ambulatory Source of Information: Patient Limitations: No Limitations Description of Symptoms (Recalled from ER Triage Doc. by RN): pt states she has had 4x syncopal episodes since yesterday. pt states every time this occurs its when she stands from a sitting position. pt c/o generalized back spasms that radiate BLE. pt reports this is a 10/07. pt also c/o dizziness. History of Present Illness HPI narrative: This patient is a 53-year-old female with a history of hypertension, hypertensive heart disease, CAD, hyperlipidemia, JANAE, type 2 diabetes, obesity, COPD, and GERD presenting to the emergency department for evaluation with concern for syncope. Patient reports that she had some diarrhea yesterday and has noted 4 syncopal episodes over the last 2 days. She states that yesterday when going from sitting to standing quickly, she passed out twice. One of the times, she hurt her ring finger on her left hand. She states she should have come yesterday but she had a hard time getting herself cleaned up, as she had a bowel movement on herself. She states that today, she had two more syncopal episodes when going from sitting to standing. She denies experiencing anything like this in the past. She denies any fevers, chills, headache, vision changes, true vertigo, numbness, tingling, unilateral weakness, chest pain, shortness of breath, abdominal pain, nausea, vomiting, urinary symptoms, or other concerns. She does report generalized muscle cramping, especially in her back and legs. Related Data Home Medications ?Medication ?Instructions ?Recorded ?Confirmed estradiol 1 mg tablet 1 mg PO DAILY Supplement 12/08/19 10/09/23 methylcellulose (with sugar) oral 1 tbsp PO DAILY PRN Constipation 04/03/21 10/09/23 powder (Citrucel (sucrose) oral powder) polyethylene glycol 3350 17 17 g PO DAILY PRN Constipation 04/03/21 10/09/23 gram/dose oral powder (Miralax) trazodone 50 mg tablet 50 mg PO HS Insomnia 07/17/21 10/09/23 prazosin 1 mg capsule 1 mg PO DAILY High blood pressure 07/20/21 10/09/23 aspirin 81 mg tablet,delayed 81 mg PO DAILY Heart health 01/07/22 10/09/23 release escitalopram oxalate 20 mg tablet 20 mg PO DAILY 07/30/23 10/09/23 estradiol 0.01% (0.1 mg/gram) 1 applic vaginal DIRECTED 07/30/23 10/09/23 vaginal cream Previous Rx's ?Medication ?Instructions ?Recorded albuterol sulfate 5 mg/mL(0.5 %) 5 mg inhalation Q4H PRN COPD 12/18/22 solution for nebulization #4,500 mL clopidogrel 75 mg tablet (Plavix) 75 mg PO QDAY #90 tabs 01/15/23 spironolactone 100 mg tablet See Rx Instructions .Route 02/12/23 .COMPLEX #90 tabs buspirone 5 mg tablet 5 mg PO BID #180 tabs 04/24/23 cariprazine 1.5 mg capsule 1.5 mg PO DAILY #90 caps 04/24/23 (Vraylar) budesonide-formoterol HFA 160 See Rx Instructions .Route 05/27/23 mcg-4.5 mcg/actuation aerosol .COMPLEX #10.2 grams inhaler bisoprolol fumarate 5 mg tablet See Rx Instructions .Route 06/13/23 .COMPLEX #90 tabs bumetanide 2 mg tablet See Rx Instructions .Route 07/10/23 .COMPLEX #90 tabs linaclotide 145 mcg capsule 145 mcg PO DAILY #30 caps 07/30/23 (Linzess) pantoprazole 40 mg tablet,delayed 40 mg PO DAILY #30 tabs 07/30/23 release (Protonix) atorvastatin 10 mg tablet See Rx Instructions .Route 08/20/23 .COMPLEX #90 tabs acetaminophen 300 mg-codeine 30 mg 1 tab PO DAILY #30 tabs 10/09/23 tablet methocarbamol 500 mg tablet 500 mg PO BID Pain #60 tabs 10/09/23 tizanidine 4 mg tablet (Zanaflex) 4 mg PO HS Pain #30 tabs 10/09/23 Allergies Allergy/AdvReac Type Severity Reaction Status Date / Time No Known Allergies Allergy Verified 10/22/23 13:18 [facility] Disclaimer: The information contained in this section may have been updated after the patient was seen, as this information can be updated by other users. Medical History Abnormal cardiovascular stress test Asthma COPD (chronic obstructive pulmonary disease) Hyperlipidemia Hyperlipidemia associated with type 2 diabetes mellitus Morbidly obese Coronary artery disease Typical angina Abnormal result of cardiovascular function study Tachycardia Diastolic dysfunction HTN (hypertension) Edema Dyspnea Chest pain BMI 36.0-36.9,adult Depression Family History Other No significant family history Social History Smoking Status: Never smoker second hand exposure: No alcohol intake: never substance use type: denies use current occupational status: other Travel in the last 8 weeks: None household members: none housing: house current occupational exposures/hazards: No caffeine: Yes ROS Obtained: Yes All systems reviewed & no additional complaints except as documented Physical Exam General General appearance: alert and in no apparent distress Head Head exam: atraumatic and normocephalic Eye Eye exam: Present normal appearance, PERRL and EOMI ENT ENT exam: Present normal exam, normal oropharynx, mucous membranes moist and normal external ear exam Neck Neck exam: Present normal inspection, full ROM and trachea midline; Absent tenderness Chest Chest inspection: Present normal inspection and symmetric chest wall rise; Absent tenderness Respiratory Respiratory exam: Present normal lung sounds bilaterally; Absent respiratory distress, wheezes, stridor or accessory muscle use Cardiovascular Cardiovascular exam: Present regular rate and normal rhythm Abdominal Exam Abdominal exam: Present soft; Absent distention, tenderness or guarding Extremities Exam Extremities exam: Present tenderness (Tenderness palpation of the left ring finger. Neurovascularly intact distally.) and normal capillary refill; Absent full ROM (Limited range of motion of the left ring finger secondary to pain) or edema Back Exam Back exam: Present normal inspection and full ROM; Absent tenderness Neurological Exam Neurological exam: Present alert, oriented X3, CN II-XII intact and normal gait; Absent motor sensory deficit Psychiatric Psychiatric exam: Present normal affect and normal mood Skin Skin exam: Present warm and dry Medical Decision Making Medical Records Medical records reviewed: Yes I reviewed the patient's medical records. Alex Inquiry Pt receiving controlled substance: No Vital Signs: 10/22/23 13:05 10/22/23 13:49 10/22/23 13:51 Temperature 98.5 F Temperature Source Oral Pulse Rate 72 Pulse Rate [Left] 85 Pulse Rate [Orthostatic Lying Radial] Pulse Rate [Orthostatic Sitting Radial] Pulse Rate [Orthostatic Standing Radial] Respiratory Rate 18 22 12 Blood Pressure 121/70 114/63 Blood Pressure [Orthostatic Lying Right Arm] Blood Pressure [Orthostatic Sitting Right Arm] Blood Pressure [Orthostatic Standing Right Arm] Blood Pressure [Right Arm] 139/95 H Blood Pressure Mean [Right Arm] 109 Blood Pressure Source [Right Arm] Automatic Cuff Blood Pressure Position [Right Arm] Sitting 02 Sat by Pulse Oximetry 96 95 Oxygen Delivery Method Room Air 10/22/23 13:52 10/22/23 13:54 10/22/23 13:59 Temperature Temperature Source Pulse Rate Pulse Rate [Left] Pulse Rate [Orthostatic Lying Radial] 69 Pulse Rate [Orthostatic Sitting Radial] 74 Pulse Rate [Orthostatic Standing Radial] 88 Respiratory Rate 12 12 Blood Pressure 128/76 122/75 Blood Pressure [Orthostatic Lying Right Arm] 114/63 Blood Pressure [Orthostatic Sitting Right Arm] 128/76 Blood Pressure [Orthostatic Standing Right Arm] 122/75 Blood Pressure [Right Arm] Blood Pressure Mean [Right Arm] Blood Pressure Source [Right Arm] Blood Pressure Position [Right Arm] 02 Sat by Pulse Oximetry Oxygen Delivery Method Lab Data Lab results reviewed: Yes I reviewed the patient's lab results. Lab Results 10/22/23 13:05: WBC 10.4, RBC 4.86, Hgb 16.0, Hct 46.6, MCV 95.9, MCH 32.9 H, MCHC 34.3, RDW 13.8, Plt Count 314, MPV 9.1, Neut % (Auto) 58.2, Lymph % (Auto) 33.3, [place] % (Auto) 6.1, Eos % (Auto) 1.3, Baso % (Auto) 1.0, Neut # (Auto) 6.0, Lymph # (Auto) 3.5, [place] # (Auto) 0.6, Eos # (Auto) 0.1, Baso # (Auto) 0.1, D-Dimer 0.29, Sodium 138, Potassium 3.9, Chloride 105, Carbon Dioxide 25, Anion Gap 11.9, BUN 32 H, Creatinine 1.30 H, Estimated Creat Clear 36, Estimated GFR 43 L, Est GFR ( Amer) 52 L, Glucose 112 H, Calcium 9.8, Magnesium 2.0, Total Bilirubin 0.8, AST 37 H, ALT 37, Alkaline Phosphatase 86, Troponin I < 0.01, NT-Pro-B Natriuret Pep 20.4, Total Protein 8.0, Albumin 4.5, Globulin 3.5 H, Albumin/Globulin Ratio 1.3 10/22/23 15:15: Urine Color Yellow, Urine Appearance Sl cloudy, Urine pH 6.0, Ur Specific [place] >= 1.030, Urine Protein Trace, Urine Glucose (UA) Negative, Urine Ketones Negative, Urine Blood Negative, Urine Nitrate Negative, Urine Bilirubin 1+ A, Urine Urobilinogen 0.2, Ur Leukocyte Esterase Negative, Urine RBC Occasional, Urine WBC 5-10, Ur Squamous Epith Cells 3-5, Ur Transition Epith Cell Occ, Urine Bacteria Trace 10/22/23 13:05 10/22/23 13:05 Orders (Tests/Meds): ED MEDICATIONS Discontinued Medications Generic Name Dose Route Start Last Admin Trade Name Freq PRN Reason Stop Dose Admin Lactated Ringer's 1,000 mls @ 999 mls/hr 10/22/23 13:12 10/22/23 13:30 Lactated Ringer's 1000 Ml Bag IV 10/22/23 14:12 999 mls/hr .Q1H1M ONE Administration Lactated Ringer's 1,000 mls @ 999 mls/hr 10/22/23 13:40 10/22/23 15:32 Lactated Ringer's 1000 Ml Bag IV 10/22/23 14:40 999 mls/hr .Q1H1M ONE Administration ORDERS Category Date Time Status Hand XR left minimum 3 views [XR hand LT min 3V] Stat Exams 10/22/23 13:12 Completed POCUS Point of Care (ER Only) Stat Exams 10/22/23 14:00 Completed BNP [NT Pro Brain Natriuretic Pep.] Stat Lab 10/22/23 13:05 Completed Complete Blood Count Auto Diff Stat Lab 10/22/23 13:05 Completed Comprehensive Metabolic Panel Stat Lab 10/22/23 13:05 Completed D-Dimer Stat Lab 10/22/23 13:05 Completed Diarrhea 23 Panel, PCR Stat Lab 10/22/23 14:13 Ordered MAG [Magnesium] Stat Lab 10/22/23 13:05 Completed Trop I [Troponin I] Stat Lab 10/22/23 13:05 Completed Troponin I Q3H Lab 10/22/23 19:15 Ordered UA [Urinalysis and Microscopic] Stat Lab 10/22/23 15:15 Completed ECG Data Tracing #1: I reviewed this ECG and interpreted as documented below: Normal sinus rhythm with a ventricular rate of [address] changes concerning for ischemia. Normal axis and intervals. ECG initial impression date: 10/22/23 ECG initial impression time: 13:09 Medical Decision Narrative: In summary, this patient is a 53-year-old female presenting to the Emergency Department for evaluation of multiple syncopal episodes as well as left hand injury. Differential diagnoses considered include but are not limited to hand fracture, contusion, vasovagal syncope, PE, ACS, dysrhythmia, electrolyte derangements, orthostatic hypotension. Ruling out the most morbid conditions drove assessment. It should be noted patient's history includes hypertension, hyperlipidemia, diabetes, obesity which may or may not be at goal therapy. This complicates all aspects of care by increasing patient's risk for morbidity. I reviewed patient's past medical records and noted previous evaluations for back issues as well as anxiety. On exam, the patient is very well-appearing with normal vital signs on cardiac telemetry. She is neurologically intact with no complaints of neurologic symptoms. No chest pain, shortness of breath, or other concerns. Workup included CBC, CMP, troponin, D-dimer, urinalysis, EKG, and x-rays of the left hand. She was given a bolus of IV fluids. High concern for orthostatic hypotension given that the patient has only had episodes when going from sitting to standing quickly. Will check orthostatics. EKG is reassuring. Bedside cardiac, renal, and aortic ultrasound were performed and all were normal. Please see procedure notes for further documentation. I independently interpreted chest x-ray prior to the radiologist read and noted cute pneumothorax, focal consolidation, or other concerns. Please see their read for final interpretation. Labs were obtained that demonstrated negative initial troponin, negative D-dimer, normal CBC. Patient does have mild ION with a creatinine of 1.3 from baseline of around 0.9. BUN is also mildly elevated. On reassessment, patient had some improvement after administration of fluids. She does not have significant orthostatic hypotension based on vital sign evaluation, however she does become slightly symptomatic with standing. She is getting a second liter bolus of fluids at this time. Cardiopulmonary and abdominal exams remain benign, and vitals are normal on cardiac telemetry. It is possible she could just have dehydration and volume depletion causing orthostatic hypotension and syncope in the setting of diarrheal illness. Patient has not been able to provide stool sample or urine specimen yet at this time. Patient did provide a urine sample, which was negative for acute infection. After fluids, she is feeling a lot better. She is able to ambulate to the bathroom without difficulty. No chest pain, shortness of breath, or other concerns still at this time. Workup has been reassuring with the exception of the mild ION, which I feel is likely from dehydration. Ultimately after shared decision-making with the patient, she is comfortable going home with close outpatient follow-up. She does have trouble flexing her PIP of her left ring finger, so I placed her in a finger splint and advised that she follow-up very closely with Ortho/hand. I also advised that she follow-up with her primary care provider for recheck of her kidney function of the next 48 hours. She was given very strict return precautions and was discharged in stable condition. Procedures Orthopedic Splinting/Casting Injury #1: Side: left Upper Extremity Injury Location: finger Upper Extremity Immobilizer: finger (other) and applied by nurse/dr powell Post Cast/Splinting Neuro Status: intact and no change Post Cast/Splinting Vasc Status: intact and no change Limited Ultrasound Indication:: Limited aortic ultrasound Indication: Syncope Identified structures: The abdominal aorta was examined in [both transverse and longitudinal], from the [diaphragmatic hiatus to the aortic bifurcation]. Findings: No evidence of aortic aneurysm or aortic dissection Impression: Normal aortic Images were saved to permanent archive The study was technically adequate CPT: 84555-27 This study was performed by ny, and I personally interpreted all images/videos. Based on my clinical judgement, these images were adequate and did not necessitate further imaging. Views:: Limited cardiac ultrasound Indication: Syncope Identified cardiac views: [-Cardiac parasternal long axis] [-Cardiac parasternal short axis] Findings: [-Cardiac activity present -Gross wall motion normal -Pericardial effusion absent -Right heart strain absent] Impression: -From above Images were saved to permanent archive The study was technically adequate CPT: 85359 This study was performed by ny, and I personally interpreted all images/videos. Based on my clinical judgement, these images were adequate and did not necessitate further imaging. Findings:: Limited renal ultrasound Indication: A focused ultrasound of the kidneys was performed to evaluate for hydronephrosis and nephrolithiasis. The ultrasound was performed with the following indications, as noted in the H&P: ION Identified structures: Both kidneys Findings: Bilateral kidneys normal without hydronephrosis Impression: Normal Limited renal ultrasound with no evidence of hydronephrosis or calculi Images were saved to permanent archive The study was technically adequate CPT: 40538-51 This study was performed by ny, and I personally interpreted all images/videos. Based on my clinical judgement, these images were adequate and did not necessitate further imaging. Critical Care Critical Care Time Critical Care Time: No
[2023-10-22 13:54] LABS: Troponin I < 0.01 ng/ml (0.00-0.034)
[2023-10-22 14:30] LABS: NT Pro Brain Natriuretic Pep. 20.4 pg/mL (0-125)
[2023-10-22 15:22] LABS: Microscopic, Urine URINE MICROSCOPIC (MICROSCOPIC)
[2023-10-22 15:27] LABS: Appearance,Urine SL CLOUDY (Clear); Blood, Urine Negative (Negative); Color,Urine YELLOW (Yellow); Glucose,Urine (UA) Negative (Negative); Ketones,Urine Negative (Negative); Leukocyte Esterase,Urine Negative (Negative); Nitrate,Urine Negative (Negative); Protein,Urine TRACE (Negative); Specific Gravity, Urine >= 1.030 (1.005-1.030); Urobilinogen,Urine 0.2 EU/dl (0.2)
[2023-10-22 15:52] LABS: Bilirubin,Urine 1+ (Negative)
[2023-10-22 15:53] LABS: Bacteria,Urine Trace /lpf; RBC,Urine Occasional #/hpf (0-3); Transitional Epi Cells,Urine OCC #/lpf (0-3)
== END 2023-10-22 16:40 | disposition home or self-care (01) ==
PROVIDERS: Emergency Provider Emergency Medicine; PCP Physician Assistant
DX: E86.0 Dehydration (principal); N17.9 Acute kidney failure, unspecified; R55 Syncope and collapse; S66.115A Strain of flexor muscle, fascia and tendon of left ring finger at wrist and hand level, initial encounter; E11.9 Type 2 diabetes mellitus without complications; E78.5 Hyperlipidemia, unspecified; I10 Essential (primary) hypertension; X50.0XXA Overexertion from strenuous movement or load, initial encounter
CPT/HCPCS: 73130; 80053; 81001; 83735; 83880; 84484; 85025; 85378; 93005; 96360; 99285; J7120

== ENCOUNTER 2023-10-30 10:17 | Emergency (ER) | payer MEDICARE, SELFPAY ==
[2023-10-30 10:18] VITALS: BP 158/94; PULSE 82; RESP 18; TEMP 36.9; O2SAT 99; BMI 46.4
--- NOTE | 2023-10-30 10:27 | XR_ITS ---
FINAL REPORT CLINICAL HISTORY: soa, COPD vs CHF COMPARISON: 04/07/2023 FINDINGS: SINGLE-VIEW CHEST There is moderate cardiomegaly. The mediastinum is normal. There is linear density at the right base consistent with atelectasis. The lungs are otherwise clear. There is no pneumothorax. IMPRESSION: Right base atelectasis. Reviewed, Interpreted and Dictated by Andre Grayson MD Transcribed by Shereen Mason Authenticated and [facility]
--- NOTE | 2023-10-30 10:28 | ECG_ITS ---
APPROVED REPORT Exam: Resting ECG HR:73 bpm ECG Measurements Heart Rate 73 AXES WV 156 P 50 QRSd 90 QRS 40 QT 385 T 35 QTc 411 Conclusion SINUS RHYTHM WITH OCCASIONAL VENTRICULAR PREMATURE COMPLEXES Electronically signed by : PAL KOROMA, 10/30/2023 15:08:52
[2023-10-30 10:30] VITALS: BP 158/94; PULSE 74; O2SAT 98
--- NOTE | 2023-10-30 10:34 | PC.NURSE ---
respiratory aware of vbg order
--- NOTE | 2023-10-30 10:36 | ED_ITS ---
Discharge Plan Disposition Patient Disposition: Home, Self-Care Chief Complaint: Shortness of Breath/Dyspnea Prescriptions Prescriptions: No Action estradiol 1 mg tablet 1 mg PO DAILY Patient Comments: TAKE 1 TABLET BY MOUTH EVERY DAY prazosin 1 mg capsule 1 mg PO DAILY buspirone 5 mg tablet 5 mg PO BID Qty: 180 0RF Vraylar 1.5 mg capsule 1.5 mg PO DAILY Qty: 90 0RF polyethylene glycol 3350 [Miralax] 17 gram/dose powder 17 g PO DAILY PRN (Reason: Constipation) Citrucel (sucrose) Powder 1 tbsp PO DAILY PRN (Reason: Constipation) trazodone 50 mg tablet 50 mg PO HS clopidogrel [Plavix] 75 mg tablet 75 mg PO QDAY Qty: 90 3RF estradiol 0.01 % (0.1 mg/gram) cream 1 applic vaginal DIRECTED escitalopram oxalate 20 mg tablet 20 mg PO DAILY Patient Comments: TAKE ONE TABLET BY MOUTH EVERY DAY pantoprazole [Protonix] 40 mg tablet,delayed release (DR/EC) 40 mg PO DAILY Qty: 30 2RF Linzess 145 mcg capsule 145 mcg PO DAILY Qty: 30 2RF albuterol sulfate 5 mg/mL solution for nebulization 5 mg INHALATION Q4H PRN (Reason: COPD) Qty: 4500 2RF spironolactone 100 mg tablet See Rx Instructions .ROUTE .COMPLEX Qty: 90 1RF Dose Instruction: TAKE ONE TABLET BY MOUTH EVERY DAY Rx Instructions: TAKE ONE TABLET BY MOUTH EVERY DAY budesonide-formoterol 160-4.5 mcg/actuation HFA aerosol inhaler See Rx Instructions .ROUTE .COMPLEX Qty: 10.2 2RF Dose Instruction: INHALE TWO PUFFS BY MOUTH TWICE DAILY Rx Instructions: INHALE TWO PUFFS BY MOUTH TWICE DAILY bisoprolol fumarate 5 mg tablet See Rx Instructions .ROUTE .COMPLEX Qty: 90 3RF Dose Instruction: TAKE ONE TABLET BY MOUTH EVERY DAY FOR BLOOD PRESSURE Rx Instructions: TAKE ONE TABLET BY MOUTH EVERY DAY FOR BLOOD PRESSURE bumetanide 2 mg tablet See Rx Instructions .ROUTE .COMPLEX Qty: 90 2RF Dose Instruction: TAKE ONE TABLET BY MOUTH TWICE DAILY FOR heart failure AND MAY take extra 1 TABLET NEEDED FOR swelling Rx Instructions: TAKE ONE TABLET BY MOUTH TWICE DAILY FOR heart failure AND MAY take extra 1 TABLET NEEDED FOR swelling atorvastatin 10 mg tablet See Rx Instructions .ROUTE .COMPLEX Qty: 90 0RF Dose Instruction: TAKE ONE TABLET BY MOUTH EVERY DAY AT BEDTIME FOR CHOLESTEROL Rx Instructions: TAKE ONE TABLET BY MOUTH EVERY DAY AT BEDTIME FOR CHOLESTEROL aspirin 81 mg tablet,delayed release (DR/EC) 81 mg PO DAILY methocarbamol 500 mg tablet 500 mg PO BID Qty: 60 0RF tizanidine [Zanaflex] 4 mg tablet 4 mg PO HS Qty: 30 0RF acetaminophen-codeine 300-30 mg tablet 1 tab PO DAILY Qty: 30 0RF Referrals Follow up/Referrals: Maria Esther Santo PA [Primary Care Provider] - See instructions Activity Restrictions/Add. Instructions Additional Instructions/Restrictions: Follow-up with audiology regarding this visit to the emergency department and need for potentially altering her dose of bumetanide as well as may be receiving another echocardiogram to evaluate your heart function. Call your family doctor to establish care for this visit to the emergency department and schedule follow-up within 48 hours to ensure improvement. If you have any worsening of your condition or any other concerning signs or symptoms, return to the emergency department or your primary care doctor for further evaluation. Clinical Impressions Clinical Impression: CHF exacerbation Print Language Print Language: Romansh Discharge ED Provider: Oscar Stover HPI General Chief Complaint: Shortness of Breath/Dyspnea Stated Complaint: GOLD, inhaler not helping Time Seen by Provider: 10/30/23 10:21 Mode of Arrival: Ambulatory Source of Information: Patient Limitations: No Limitations Description of Symptoms (Recalled from ER Triage Doc. by RN): shortness of air. since yesteray History of Present Illness HPI narrative: Please note that above description of symptoms, in this electronic medical record under categorization of recalled from ER triage doctor by RN are reflective of an initial nursing assessment, however, is not reflective of my full history and physical exam that was personally taken and clarified. Consequentially, this preceding description of symptoms, which may include the patient's categorized chief complaint in the EMR, do not reflect my personal clinical impression, and the ultimate description of history of present illness and patient stated complaints should be deferred to this section of the note. Unless stated otherwise or congruent with this section of the note, additional signs, symptoms, or incongruence should be interpreted as inaccurate with my clinical impression. Related Data Home Medications ?Medication ?Instructions ?Recorded ?Confirmed estradiol 1 mg tablet 1 mg PO DAILY Supplement 12/08/19 10/09/23 methylcellulose (with sugar) oral 1 tbsp PO DAILY PRN Constipation 04/03/21 10/09/23 powder (Citrucel (sucrose) oral powder) polyethylene glycol 3350 17 17 g PO DAILY PRN Constipation 04/03/21 10/09/23 gram/dose oral powder (Miralax) trazodone 50 mg tablet 50 mg PO HS Insomnia 07/17/21 10/09/23 prazosin 1 mg capsule 1 mg PO DAILY High blood pressure 07/20/21 10/09/23 aspirin 81 mg tablet,delayed 81 mg PO DAILY Heart health 01/07/22 10/09/23 release escitalopram oxalate 20 mg tablet 20 mg PO DAILY 07/30/23 10/09/23 estradiol 0.01% (0.1 mg/gram) 1 applic vaginal DIRECTED 07/30/23 10/09/23 vaginal cream Previous Rx's ?Medication ?Instructions ?Recorded albuterol sulfate 5 mg/mL(0.5 %) 5 mg inhalation Q4H PRN COPD 12/18/22 solution for nebulization #4,500 mL clopidogrel 75 mg tablet (Plavix) 75 mg PO QDAY #90 tabs 01/15/23 spironolactone 100 mg tablet See Rx Instructions .Route 02/12/23 .COMPLEX #90 tabs buspirone 5 mg tablet 5 mg PO BID #180 tabs 04/24/23 cariprazine 1.5 mg capsule 1.5 mg PO DAILY #90 caps 04/24/23 (Vraylar) budesonide-formoterol HFA 160 See Rx Instructions .Route 05/27/23 mcg-4.5 mcg/actuation aerosol .COMPLEX #10.2 grams inhaler bisoprolol fumarate 5 mg tablet See Rx Instructions .Route 06/13/23 .COMPLEX #90 tabs bumetanide 2 mg tablet See Rx Instructions .Route 07/10/23 .COMPLEX #90 tabs linaclotide 145 mcg capsule 145 mcg PO DAILY #30 caps 07/30/23 (Linzess) pantoprazole 40 mg tablet,delayed 40 mg PO DAILY #30 tabs 07/30/23 release (Protonix) atorvastatin 10 mg tablet See Rx Instructions .Route 08/20/23 .COMPLEX #90 tabs acetaminophen 300 mg-codeine 30 mg 1 tab PO DAILY #30 tabs 10/09/23 tablet methocarbamol 500 mg tablet 500 mg PO BID Pain #60 tabs 10/09/23 tizanidine 4 mg tablet (Zanaflex) 4 mg PO HS Pain #30 tabs 10/09/23 Allergies Allergy/AdvReac Type Severity Reaction Status Date / Time No Known Allergies Allergy Verified 10/22/23 13:18 [facility] Disclaimer: The information contained in this section may have been updated after the patient was seen, as this information can be updated by other users. Medical History Abnormal cardiovascular stress test Asthma COPD (chronic obstructive pulmonary disease) Hyperlipidemia Hyperlipidemia associated with type 2 diabetes mellitus Morbidly obese Coronary artery disease Typical angina Abnormal result of cardiovascular function study Tachycardia Diastolic dysfunction HTN (hypertension) Edema Dyspnea Chest pain BMI 36.0-36.9,adult Depression Family History Other No significant family history Social History Smoking Status: Never smoker second hand exposure: No alcohol intake: never substance use type: denies use current occupational status: other Travel in the last 8 weeks: None household members: none housing: house current occupational exposures/hazards: No caffeine: Yes ROS Obtained: Yes All systems reviewed & no additional complaints except as documented Physical Exam General General appearance: alert and in no apparent distress Neck Neck exam: Present trachea midline Chest Chest inspection: Present normal inspection and symmetric chest wall rise Respiratory Respiratory exam: Present normal lung sounds bilaterally; Absent respiratory distress, wheezes, stridor, accessory muscle use or prolonged expiratory phase Cardiovascular Cardiovascular exam: Present regular rate, normal rhythm and other (Pulses equal and symmetric in upper and lower extremities) Extremities Exam Extremities exam: Present edema Neurological Exam Neurological exam: Present alert, oriented X3 and CN II-XII intact Skin Skin exam: Present warm and dry; Absent cyanosis, diaphoresis or pallor HEART Score HEART Score HEART Score assessment performed?: Yes History (anamnesis): Slightly suspicious ECG: Normal Age: 45-65 years Risk factors: 1-2 risk factors Troponin: </= normal limit HEART Score: 2 Critical Care Critical Care Time Critical Care Time: No Medical Decision Making Medical Records Medical records reviewed: Yes I reviewed the patient's medical records. [place] Inquiry Pt receiving controlled substance: No Alex was queried for this patient: No Vital Signs Vital Signs: 10/30/23 10:18 10/30/23 10:30 Temperature 98.4 F Temperature Source Oral Pulse Rate 74 Pulse Rate [Right] 82 Respiratory Rate 18 Blood Pressure 158/94 H Blood Pressure [Right Arm] 158/94 H Blood Pressure Mean [Right Arm] 115 02 Sat by Pulse Oximetry 99 98 Oxygen Delivery Method Room Air Lab Data Labs: Lab Results 10/30/23 10:30: WBC 7.0, RBC 4.29, Hgb 14.0, Hct 41.1, MCV 95.9, MCH 32.6 H, MCHC 34.0, RDW 13.9, Plt Count 250, MPV 9.6, Neut % (Auto) 60.2, Lymph % (Auto) 30.8, [place] % (Auto) 6.1, Eos % (Auto) 1.6, Baso % (Auto) 1.3, Neut # (Auto) 4.2, Lymph # (Auto) 2.2, [place] # (Auto) 0.4, Eos # (Auto) 0.1, Baso # (Auto) 0.1, Sodium 143, Potassium 3.7, Chloride 111 H, Carbon Dioxide 24, Anion Gap 11.7, BUN 14, Creatinine 0.70, Estimated Creat Clear 63, Estimated GFR 88, Est GFR ( Amer) 106, Glucose 93, Calcium 9.1, Magnesium 1.8, Total Bilirubin 0.3, AST 32, ALT 32, Alkaline Phosphatase 64, Troponin I < 0.01, NT-Pro-B Natriuret Pep 281 H, Total Protein 7.0, Albumin 4.0, Globulin 3.0, Albumin/Globulin Ratio 1.3 10/30/23 10:34: VBG pH 7.35, VBG pCO2 41.0, VBG pO2 37.9, VBG HCO3 22.3 L, VBG Total CO2 23.6, VBG O2 Saturation 73.6 H, VBG Base Excess -3.2 L, VBG Lactic Acid 2.0 10/30/23 10:30 10/30/23 10:30 Response Orders (Tests/Meds): ED MEDICATIONS Generic Name Dose Route Start Last Admin Trade Name Freq PRN Reason Stop Dose Admin Sodium Chloride 10 ml 10/30/23 10:36 Sodium Chloride 0.9% 10ml Flush Syringe IV 11/29/23 10:35 NEEDED PRN Maintain IV Site Discontinued Medications Generic Name Dose Route Start Last Admin Trade Name Hafsa PRN Reason Stop Dose Admin Furosemide 40 mg 10/30/23 11:43 10/30/23 11:58 Furosemide 40mg/4ml Vial IV 10/30/23 11:44 40 mg ONCE ONE Administration ORDERS Category Date Time Status XR chest portable Stat Exams 10/30/23 10:27 Completed Complete Blood Count Auto Diff Stat Lab 10/30/23 10:30 Completed Comprehensive Metabolic Panel Stat Lab 10/30/23 10:30 Completed Magnesium Stat Lab 10/30/23 10:30 Completed NT Pro Brain Natriuretic Pep. Stat Lab 10/30/23 10:30 Completed Troponin I Q3H Lab 10/30/23 13:30 Ordered Troponin I Q3H Lab 10/30/23 16:30 Ordered Troponin I Stat Lab 10/30/23 10:30 Completed Venous Blood Gas Stat RT 10/30/23 10:34 Completed MDM Narrative Medical Decision Narrative: 53-year-old female history of hypertension, hyperlipidemia, CAD, COPD secondary to secondhand smoke, not on home oxygen, CHF presenting with shortness of breath. Patient states that she has been feeling more short of breath for the last 2 days. Has been using her inhalers without relief. States that the inhalers usually work when it is related to her COPD. Associated symptoms include difficulty laying flat secondary to shortness of breath, lower extremity swelling. Denies chest pain, nausea, vomiting, diaphoresis, recent sick contacts, cough, fevers, chills, or any other complaints. History was obtained via conversation with patient. On arrival, patient hemodynamically stable, alert, oriented x4, appropriate, GCS 15, moving all extremities spontaneously, pupils equal and reactive to light. Full physical exam performed and significant for very well-appearing female no acute distress. Hypertensive, nontachycardic and in no acute distress. Speaking in full sentences. Lungs are clear without wheezes bilaterally anterior and posteriorly, but breath sounds are decreased in lung bases. Pulses equal in upper and lower extremities and they are symmetric. She does have lower extremity swelling 2+ pitting edema. Cardiac exam without abnormal sounds, normal S1-S2. Differential includes CHF, mild COPD exacerbation, pneumonia, ACS, [place], among others Patient placed on continuous cardiac monitoring and continuous pulse ox with initial blood pressure 158/94, heart rate 74, saturation 98% on room air. Sinus rhythm 73 beats a minute no ST or T wave changes concerning for acute ischemia. AR 156, QRS 90, QTc 411 and axis normal on independent interpretation of EKG. Workup independently interpreted and significant for nonactionable CBC or chemistry. Patient's troponin negative, BNP mildly elevated. Given 40 mg IV Lasix for this. On independent interpretation of imaging, no acute cardiopulmonary spaces. No evidence of edema or effusions. See radiology read for full review of final results. Heart score 2. Because patient not requiring oxygen, normal chest x-ray, very well-appearing, Lasix administered. Patient agreeable to outpatient follow-up with cardiology. I feel is appropriate. Because patient at baseline without signs or symptoms of clinical decompensation, deemed appropriate for discharge. Results were relayed to patient who voiced understanding and were agreeable to outpatient management and follow up. I discussed my clinical impression with patient and answered all questions. At this time, the evidence for any other entities in the differential is insufficient to warrant any further testing or ED observation. This was explained as well. Advisory was given that persistent or worsening symptoms require further evaluation. I confirmed the understanding of this discussion. 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 Electronic retail worker of the spoken language may permit errors. Although I have reviewed the note, some errors may still exist.
[2023-10-30 10:42] LABS: Basophils # 0.1 K/mm3 (0-0.2); Basophils % 1.3 % (0.1-2.0); Eosinophils # 0.1 K/mm3 (0.0-0.4); Eosinophils % 1.6 % (0.1-12.0); Hematocrit 41.1 % (37.0-47.0); Lymphocytes # 2.2 K/mm3 (0.7-4.5); Lymphocytes % 30.8 % (10-50); Mean Corpuscular Hemoglobin 32.6 pg (27.0-31.2); Mean Corpuscular Volume 95.9 fl (81-99); Mean Platelet Volume 9.6 fl (7.4-10.4); Monocytes # 0.4 K/mm3 (0.1-1.0); Monocytes % 6.1 % (1.7-9.3); Neutrophils # 4.2 K/mm3 (1.8-7.8); Neutrophils % 60.2 % (37.0-80.0); Platelet Count 250 K/mm3 (142-424); Red Blood Count 4.29 M/mm3 (4.20-5.40); Red Cell Distribution Width 13.9 % (11.5-17.5)
[2023-10-30 10:42] LABS: VBG Base Excess -3.2 mmol/L (-2.4-2.3); VBG HCO3 22.3 mmol/L (23-30); VBG Oxygen Saturation 73.6 % (50-70); VBG PH 7.35 mmol/L (7.31-7.41); VBG PO2 37.9 mmol/L (28-40); VBG Total CO2 23.6 mmol/L (23-27)
[2023-10-30 11:00] LABS: Alanine Aminotransferase 32 U/L (12-78); Albumin/Globulin Ratio 1.3 (1.1-1.8); Alkaline Phosphatase 64 U/L (38-126); Anion Gap 11.7 mEq/L (5-15); Aspartate Amino Transferase 32 U/L (14-36); Bilirubin,Total 0.3 mg/dl (0.2-1.3); Blood Urea Nitrogen 14 mg/dl (7-17); Calcium 9.1 mg/dl (8.4-10.2); Carbon Dioxide 24 mmol/L (22.0-30.0); Chloride 111 mmol/L (98-107); Creatinine Clearance Estimated 63 mL/min (50-200); Estimated Glomerular Filt Rate 88 ml/min (>60); GFR (African American) 106 ML/MIN (>60); Glucose 93 mg/dl (74-100); Magnesium 1.8 mg/dl (1.6-2.3); Potassium 3.7 mmoL/L (3.5-5.1); Sodium 143 mmol/L (136-145)
[2023-10-30 11:12] LABS: NT Pro Brain Natriuretic Pep. 281 pg/mL (0-125)
[2023-10-30 11:29] LABS: Troponin I < 0.01 ng/ml (0.00-0.034)
[2023-10-30] MEDS: FUROSEMIDE 40MG/4ML VIAL 40 MG IV (11:58)
[2023-10-30 12:19] VITALS: BP 158/94; PULSE 74; RESP 18; TEMP 36.9; O2SAT 98
== END 2023-10-30 12:19 | disposition home or self-care (01) ==
PROVIDERS: Emergency Provider Emergency Medicine; PCP Physician Assistant
DX: J44.1 Chronic obstructive pulmonary disease with (acute) exacerbation (principal); R06.02 Shortness of breath; I11.0 Hypertensive heart disease with heart failure; I50.9 Heart failure, unspecified; I25.10 Atherosclerotic heart disease of native coronary artery without angina pectoris; E78.5 Hyperlipidemia, unspecified; Z77.22 Contact with and (suspected) exposure to environmental tobacco smoke (acute) (chronic)
CPT/HCPCS: 71045; 80053; 82803; 83735; 83880; 84484; 85025; 93005; 96374; 99284; J1940

== ENCOUNTER 2023-10-30 15:11 | Outpatient (RCR) | payer MEDICARE, SELFPAY | END 2023-10-30 16:00 | disposition home or self-care (01) | LOC: OT 15:11 | PROVIDERS: Visit Provider Physician Assistant Surgical | DX: M79.645 Pain in left finger(s) (principal) ==

== ENCOUNTER 2023-11-06 09:19 | Outpatient (POV) | payer MEDICARE, SELFPAY ==
[2023-11-06 09:25] VITALS: BP 149/78; PULSE 65; RESP 16; O2SAT 95; BMI 46.4
--- NOTE | 2023-11-06 09:33 | EXP.PAIN.SOA ---
[facility] Disclaimer: The information contained in this section may have been updated after the patient was seen, as this information can be updated by other users. Medical History Abnormal cardiovascular stress test Asthma COPD (chronic obstructive pulmonary disease) Hyperlipidemia Hyperlipidemia associated with type 2 diabetes mellitus Morbidly obese Coronary artery disease Typical angina Abnormal result of cardiovascular function study Tachycardia Diastolic dysfunction HTN (hypertension) Edema Dyspnea Chest pain BMI 36.0-36.9,adult Depression Family History Other No significant family history Social History Smoking Status: Never smoker second hand exposure: No alcohol intake: never substance use type: denies use current occupational status: unemployed Travel in the last 8 weeks: None household members: none housing: house current occupational exposures/hazards: No caffeine: Yes PM Subjective & Objective Subjective Subjective:: Patient is a pleasant 53-year-old female who presents today for medication refills. Today she rates her pain a 7 out of 10. Patient does state from her last visit she did have an episode of dehydration to where she actually passed out. She states the fall she ended up having a broken thumb and ring finger on the left side. Patient does present today with a brace and splint on this extremity. Patient is currently managed with tizanidine 4 mg at bedtime, methocarbamol 500 mg twice a day and Tylenol 3 daily. She denies any side effects from this medication. Her Alex has been reviewed and is appropriate. Review of Systems: General: No recent weight changes, no fever, no sleep disturbances Respiratory: No cough, no shortness of air, no recurring pulmonary infections Cardiovascular/peripheral vascular: No chest pain, no palpitations, no edema, no shortness of breath Gastrointestinal: No new onset incontinence, normal bowel movements reported Genitourinary: No new onset incontinence Musculoskeletal: Low back pain Psychiatric: [Normal mood/affect] Neurological: [Denies weakness in extremities], [denies balance issues] Pain at rest (0-10 scale): 7 Objective Objective:: Physical Exam: General: Alert and oriented x3, no acute distress, pleasant and cooperative Lungs: Respirations even and unlabored, symmetrical chest expansion Eyes: PERRL Musculoskeletal: Flexion and extension of lumbar [spine] somewhat guarded secondary to pain, [antalgic gait noted] Neurological: Speech clear, no gross sensory deficit Has patient had previous pain injection?: No Conservative treatment options previously tried: Home exercise plan Length of treatment: Longer than 6 weeks Meds Home Medications and Allergies Home Medications ?Medication ?Instructions ?Recorded ?Confirmed ?Type estradiol 1 mg tablet 1 mg PO DAILY Supplement 12/08/19 11/06/23 History methylcellulose (with sugar) oral 1 tbsp PO DAILY PRN Constipation 04/03/21 11/06/23 History powder (Citrucel (sucrose) oral powder) polyethylene glycol 3350 17 17 g PO DAILY PRN Constipation 04/03/21 11/06/23 History gram/dose oral powder (Miralax) trazodone 50 mg tablet 50 mg PO HS Insomnia 07/17/21 11/06/23 History prazosin 1 mg capsule 1 mg PO DAILY High blood pressure 07/20/21 11/06/23 History aspirin 81 mg tablet,delayed 81 mg PO DAILY Heart health 01/07/22 11/06/23 History release albuterol sulfate 5 mg/mL(0.5 %) 5 mg inhalation Q4H PRN COPD 12/18/22 11/06/23 Rx solution for nebulization #4,500 mL clopidogrel 75 mg tablet (Plavix) 75 mg PO QDAY #90 tabs 01/15/23 11/06/23 Rx spironolactone 100 mg tablet See Rx Instructions .Route 02/12/23 11/06/23 Rx .COMPLEX #90 tabs buspirone 5 mg tablet 5 mg PO BID #180 tabs 04/24/23 11/06/23 Rx cariprazine 1.5 mg capsule 1.5 mg PO DAILY #90 caps 04/24/23 11/06/23 Rx (Vraylar) budesonide-formoterol HFA 160 See Rx Instructions .Route 05/27/23 11/06/23 Rx mcg-4.5 mcg/actuation aerosol .COMPLEX #10.2 grams inhaler bisoprolol fumarate 5 mg tablet See Rx Instructions .Route 06/13/23 11/06/23 Rx .COMPLEX #90 tabs bumetanide 2 mg tablet See Rx Instructions .Route 07/10/23 11/06/23 Rx .COMPLEX #90 tabs escitalopram oxalate 20 mg tablet 20 mg PO DAILY 07/30/23 11/06/23 History estradiol 0.01% (0.1 mg/gram) 1 applic vaginal DIRECTED 07/30/23 11/06/23 History vaginal cream linaclotide 145 mcg capsule 145 mcg PO DAILY #30 caps 07/30/23 11/06/23 Rx (Linzess) pantoprazole 40 mg tablet,delayed 40 mg PO DAILY #30 tabs 07/30/23 11/06/23 Rx release (Protonix) atorvastatin 10 mg tablet See Rx Instructions .Route 08/20/23 11/06/23 Rx .COMPLEX #90 tabs acetaminophen 300 mg-codeine 30 mg 1 tab PO DAILY #30 tabs 10/09/23 11/06/23 Rx tablet methocarbamol 500 mg tablet 500 mg PO BID Pain #60 tabs 10/09/23 11/06/23 Rx tizanidine 4 mg tablet (Zanaflex) 4 mg PO HS Pain #30 tabs 10/09/23 11/06/23 Rx New Prescriptions to Start Prescriptions: Allergies Allergy/AdvReac Type Severity Reaction Status Date / Time No Known Allergies Allergy Verified 10/30/23 14:44 Assessment and Plan *Assessment and plan (1) Lumbar radiculopathy: Status: Acute Category: Medical Code(s): M54.16 - Radiculopathy, lumbar region (2) Degenerative disc disease, lumbar: Status: Acute Category: Medical Code(s): M51.36 - Other intervertebral disc degeneration, lumbar region Plan I will refill the patient's tizanidine, methocarbamol and Tylenol. About a 1 month supply of this medication. Patient will return to clinic in 1 month for reevaluation of symptoms and plan of care. Risks and benefits of the medication have been explained in detail to the patient. The patient does understand the risk of dependence on the medication when given over a prolonged period. Patient has been advised of risks of oversedation with the prescribed medication. Narcan has been offered to the paitent in the event of oversedation. Patient has been advised that a family member should also be educated regarding administration of Narcan. The patient has been advised to consult with his/her primary care provider and pharmacist regarding drug-drug interaction of medications currently prescribed. Patient has been prescribed a controlled substance after being counseled on the medication, medication safety, and possible side effects. Opioid contract was reviewed and signed by the patient, and that they have agreed to all of the terms set forth by our compliance program. Patient has been instructed to contact the clinic with any concerns before the next appointment. Dr. Kirk has reviewed this note and agrees with this plan of care. This note was dictated using voice recognition software and make contain errors or omissions.
== END 2023-11-06 23:59 | disposition home or self-care (01) ==
PROVIDERS: PCP Physician Assistant; Visit Provider Nurse Practitioner Family
DX: M51.16 Intervertebral disc disorders with radiculopathy, lumbar region (principal); I25.10 Atherosclerotic heart disease of native coronary artery without angina pectoris; I10 Essential (primary) hypertension; E66.01 Morbid (severe) obesity due to excess calories; Z68.36 Body mass index [BMI] 36.0-36.9, adult; Z79.02 Long term (current) use of antithrombotics/antiplatelets; Z95.5 Presence of coronary angioplasty implant and graft
CPT/HCPCS: 99212; G0463

== ENCOUNTER 2023-11-11 10:59 | Outpatient (CLI) | payer MEDICARE, SELFPAY ==
--- NOTE | 2023-11-11 11:09 | XR_ITS ---
FINAL REPORT CLINICAL HISTORY: lt hand pain in 4th digit FINDINGS: Left hand Three views were obtained. There is no acute fracture or dislocation. The joint spaces appear normal. No soft tissue abnormality is identified. IMPRESSION: No acute process. Reviewed, Interpreted and Dictated by Maverick Barnes III, MD Transcribed by Shereen Mason Authenticated and [facility]
== END 2023-11-11 23:59 | disposition home or self-care (01) ==
LOC: RAD 11:01
PROVIDERS: PCP Internal Medicine; Visit Provider Physician Assistant Surgical
DX: M20.012 Mallet finger of left finger(s) (principal); M79.642 Pain in left hand
CPT/HCPCS: 73130

== ENCOUNTER 2023-11-25 09:12 | Outpatient (CLI) | payer MEDICARE, SELFPAY | END 2023-11-25 23:59 | disposition home or self-care (01) | LOC: LAB.DROPOF 11-26 09:40 | PROVIDERS: PCP Internal Medicine; Visit Provider Nurse Practitioner Family | DX: N39.0 Urinary tract infection, site not specified (principal) | CPT/HCPCS: 87086; 87088; 87186 ==

== ENCOUNTER 2024-01-06 08:24 | Day surgery (SDC) | payer MEDICARE, SELFPAY ==
[2024-01-06 08:57] VITALS: BP 177/75; PULSE 71; RESP 16; TEMP 36.7; O2SAT 97; BMI 44.4
[2024-01-06] MEDS: methylPREDNISolone ACETATE 80MG/ML VIAL 80 MG (09:47)
[2024-01-06 09:48] VITALS: BP 148/61; PULSE 71; RESP 18; O2SAT 98
[2024-01-06 09:51] VITALS: BP 148/61; BP 149/77; PULSE 69; PULSE 71; RESP 16; RESP 18; TEMP 36.7; O2SAT 98
--- NOTE | 2024-01-06 12:08 | EXP.PAIN.PRO ---
Procedure Date: 01/06/24 Time: 12:00 Anesthesiologist:: Smith Segura CRNA Complications:: None Pre-procedure Diagnosis:: Degenerative disc lumbar spine multilevels. Lumbar radiculopathy. Post-procedure Diagnosis:: Same. Indications for Procedure:: Patient is a pleasant 53-year-old female who comes our clinic today for repeat lumbar epidural steroid injection at L5-S1 level. Patient describes low lumbar back pain as constant, dull, aching. She rates her pain 7/10. She describes difficulty with bilateral hip and leg radicular symptoms to the foot. Right greater than left. Procedure Details:: Procedure: Lumbar epidural steroid injection under fluoroscopy Informed consent was obtained and the risks and benefits of the procedure were explained to the patient. The patient was taken to the procedure room and noninvasive monitors placed, including noninvasive blood pressure cuff and pulse oximeter. The back was viewed using C-arm Fluoroscopy and prepped using Chloraprep as a cleansing solution and the L5-S1 interspace was palpated. Skin and subcutaneous tissues were anesthetized using lidocaine 1.5% and a 25-gauge needle. After this, an 18-gauge Touhy epidural needle was placed into the L5-S1 interspace and advanced using fluoroscopic guidance and loss of resistance to air until the epidural space was encountered. After confirmation of needle placement in the epidural space, with dye, a solution containing normal saline, 3 mL and Depo-Medrol 80 mg were incrementally injected into the lumbar epidural space. The patient tolerated the procedure well with no complications. The patient was observed in the Pain Clinic and then discharged home neurologically intact. Plan and Disposition:: Patient was discharged without incident.
== END 2024-01-06 09:52 | disposition home or self-care (01) ==
LOC: SC.PAINP 08:25
PROVIDERS: PCP Internal Medicine; Visit Provider Nurse Anesthetist, Certified Registered
DX: M51.16 Intervertebral disc disorders with radiculopathy, lumbar region (principal)
CPT/HCPCS: 62323; J1010

== ENCOUNTER 2024-01-06 09:52 | Emergency (ER) | payer MEDICARE, SELFPAY ==
[2024-01-06 10:07] VITALS: BP 147/84; PULSE 65; RESP 16; TEMP 36.7; O2SAT 98; BMI 44.4
--- NOTE | 2024-01-06 10:30 | EXP.UTC ---
Discharge Plan Disposition Patient Disposition: Home, Self-Care Condition: Good Prescriptions Prescriptions: New azithromycin [Zithromax Z-Tesfaye] 250 mg tablet See Rx Instructions .ROUTE .COMPLEX 5 Days Qty: 6 0RF Rx Instructions: For 250 mg dose pack: take 500 mg today (day 1), then 250 mg for 4 days (days 2-5) prednisone 20 mg tablet 20 mg PO BID 5 Days Qty: 10 0RF benzonatate 100 mg capsule 100 mg PO TID PRN (Reason: cough) Qty: 30 0RF No Action estradiol 1 mg tablet 1 mg PO DAILY Patient Comments: TAKE 1 TABLET BY MOUTH EVERY DAY prazosin 1 mg capsule 1 mg PO DAILY buspirone 5 mg tablet 5 mg PO BID Qty: 180 0RF Vraylar 1.5 mg capsule 1.5 mg PO DAILY Qty: 90 0RF polyethylene glycol 3350 [Miralax] 17 gram/dose powder 17 g PO DAILY PRN (Reason: Constipation) Citrucel (sucrose) Powder 1 tbsp PO DAILY PRN (Reason: Constipation) trazodone 50 mg tablet 50 mg PO HS clopidogrel [Plavix] 75 mg tablet 75 mg PO QDAY Qty: 90 3RF estradiol 0.01 % (0.1 mg/gram) cream 1 applic vaginal DIRECTED escitalopram oxalate 20 mg tablet 20 mg PO DAILY Patient Comments: TAKE ONE TABLET BY MOUTH EVERY DAY pantoprazole [Protonix] 40 mg tablet,delayed release (DR/EC) 40 mg PO DAILY Qty: 30 2RF Linzess 145 mcg capsule 145 mcg PO DAILY Qty: 30 2RF albuterol sulfate 5 mg/mL solution for nebulization 5 mg INHALATION Q4H PRN (Reason: COPD) Qty: 4500 2RF spironolactone 100 mg tablet See Rx Instructions .ROUTE .COMPLEX Qty: 90 1RF Dose Instruction: TAKE ONE TABLET BY MOUTH EVERY DAY Rx Instructions: TAKE ONE TABLET BY MOUTH EVERY DAY budesonide-formoterol 160-4.5 mcg/actuation HFA aerosol inhaler See Rx Instructions .ROUTE .COMPLEX Qty: 10.2 2RF Dose Instruction: INHALE TWO PUFFS BY MOUTH TWICE DAILY Rx Instructions: INHALE TWO PUFFS BY MOUTH TWICE DAILY bisoprolol fumarate 5 mg tablet See Rx Instructions .ROUTE .COMPLEX Qty: 90 3RF Dose Instruction: TAKE ONE TABLET BY MOUTH EVERY DAY FOR BLOOD PRESSURE Rx Instructions: TAKE ONE TABLET BY MOUTH EVERY DAY FOR BLOOD PRESSURE bumetanide 2 mg tablet See Rx Instructions .ROUTE .COMPLEX Qty: 90 2RF Dose Instruction: TAKE ONE TABLET BY MOUTH TWICE DAILY FOR heart failure AND MAY take extra 1 TABLET NEEDED FOR swelling Rx Instructions: TAKE ONE TABLET BY MOUTH TWICE DAILY FOR heart failure AND MAY take extra 1 TABLET NEEDED FOR swelling atorvastatin 10 mg tablet See Rx Instructions .ROUTE .COMPLEX Qty: 90 0RF Dose Instruction: TAKE ONE TABLET BY MOUTH EVERY DAY AT BEDTIME Rx Instructions: TAKE ONE TABLET BY MOUTH EVERY DAY AT BEDTIME levofloxacin 750 mg tablet 750 mg PO DAILY Qty: 7 0RF aspirin 81 mg tablet,delayed release (DR/EC) 81 mg PO DAILY acetaminophen-codeine 300-30 mg tablet 1 tab PO DAILY Qty: 2 0RF methocarbamol 500 mg tablet 500 mg PO BID Qty: 60 0RF tizanidine [Zanaflex] 4 mg tablet 4 mg PO HS Qty: 30 0RF acetaminophen-codeine 300-30 mg tablet 1 tab PO DAILY Qty: 30 0RF Referrals Follow up/Referrals: Manjinder Mcgowan DO [Primary Care Provider] - See instructions Activity Restrictions/Add. Instructions Additional Instructions/Restrictions: Start antibiotic today. Be sure to complete entire prescription even if feeling better Monitor temp. Tylenol every 4 hours as needed and / or ibuprofen every 6 hours as needed ( As long as your primary care physician has told you that it ok to take both. For fever/aches/pains ER if no less than 101 despite Tylenol or Motrin Humidifier/vaporizer or hot steamy shower Inhaler every 4-6 hours as needed like we discussed. If unsure how to use it, ask pharmacist to demonstrate how. Should help open airways and improve cough, wheezing, and shortness of breath Tessalon Perles will not cause drowsiness but use at bedtime to help stop cough so that you may get some rest. *Start steroid today. Helps with inflammation therefore, cough and wheezing. Follow directions on the package. Reviewed side effects. Patient reports taking them before. Follow up IMMEDIATELY for new or worsening of symptoms OR no noticeable improvement over the next 48-72 hours. 911 immediately for any life threatening symptoms such as chest pain or difficulty breathing Clinical Impressions Clinical Impression: Sinusitis, Bronchitis Instructions Patient Instructions: DI for Sinusitis, Acute Bronchitis Print Language Print Language: [place] Discharge ED Provider: Danelle Rao [facility] General Stated complaint: chest congestion Mode of Arrival: Ambulatory Source of Information: Patient Limitations: No Limitations Time Seen by Provider: 01/06/24 10:31 Description of Symptoms (Recalled from Triage Doc. by RN): Patient reports chest congestion. HEENT Symptoms (Recalled from RN notes): Yes Resp Symptoms (Recalled from RN notes): No Skin Symptoms (Recalled from RN notes): No MS Symptoms (Recalled from RN notes): No Functional Status (Recalled from RN notes): wnl History of Present Illness Provider Complaint: Patient states that she started last week with sinus pain and pressure and now it has moved into her chest area and she was worried it would turn into bronchitis so she came in to get checked Related Data Home Medications ?Medication ?Instructions ?Recorded ?Confirmed estradiol 1 mg tablet 1 mg PO DAILY Supplement 12/08/19 12/11/23 methylcellulose (with sugar) oral 1 tbsp PO DAILY PRN Constipation 04/03/21 12/11/23 powder (Citrucel (sucrose) oral powder) polyethylene glycol 3350 17 17 g PO DAILY PRN Constipation 04/03/21 12/11/23 gram/dose oral powder (Miralax) trazodone 50 mg tablet 50 mg PO HS Insomnia 07/17/21 12/11/23 prazosin 1 mg capsule 1 mg PO DAILY High blood pressure 07/20/21 12/11/23 aspirin 81 mg tablet,delayed 81 mg PO DAILY Heart health 01/07/22 12/11/23 release escitalopram oxalate 20 mg tablet 20 mg PO DAILY 07/30/23 12/11/23 estradiol 0.01% (0.1 mg/gram) 1 applic vaginal DIRECTED 07/30/23 12/11/23 vaginal cream Previous Rx's ?Medication ?Instructions ?Recorded albuterol sulfate 5 mg/mL(0.5 %) 5 mg inhalation Q4H PRN COPD 12/18/22 solution for nebulization #4,500 mL clopidogrel 75 mg tablet (Plavix) 75 mg PO QDAY #90 tabs 01/15/23 spironolactone 100 mg tablet See Rx Instructions .Route 02/12/23 .COMPLEX #90 tabs buspirone 5 mg tablet 5 mg PO BID #180 tabs 04/24/23 cariprazine 1.5 mg capsule 1.5 mg PO DAILY #90 caps 04/24/23 (Vraylar) budesonide-formoterol HFA 160 See Rx Instructions .Route 05/27/23 mcg-4.5 mcg/actuation aerosol .COMPLEX #10.2 grams inhaler bisoprolol fumarate 5 mg tablet See Rx Instructions .Route 06/13/23 .COMPLEX #90 tabs bumetanide 2 mg tablet See Rx Instructions .Route 07/10/23 .COMPLEX #90 tabs linaclotide 145 mcg capsule 145 mcg PO DAILY #30 caps 07/30/23 (Linzess) pantoprazole 40 mg tablet,delayed 40 mg PO DAILY #30 tabs 07/30/23 release (Protonix) acetaminophen 300 mg-codeine 30 mg 1 tab PO DAILY #2 tabs 11/20/23 tablet atorvastatin 10 mg tablet See Rx Instructions .Route 11/27/23 .COMPLEX #90 tabs levofloxacin 750 mg tablet 750 mg PO DAILY #7 tabs 11/27/23 acetaminophen 300 mg-codeine 30 mg 1 tab PO DAILY #30 tabs 12/10/23 tablet methocarbamol 500 mg tablet 500 mg PO BID Pain #60 tabs 12/10/23 tizanidine 4 mg tablet (Zanaflex) 4 mg PO HS Pain #30 tabs 12/10/23 azithromycin 250 mg tablet See Rx Instructions PO .COMPLEX 5 01/06/24 (Zithromax Z-Tesfaye) days #6 tabs benzonatate 100 mg capsule 100 mg PO TID PRN cough #30 caps 01/06/24 prednisone 20 mg tablet 20 mg PO BID 5 days #10 tabs 01/06/24 Allergies Allergy/AdvReac Type Severity Reaction Status Date / Time No Known Allergies Allergy Verified 12/11/23 10:08 Worker's Comp Is this a Worker's Comp case?: No [facility] Disclaimer: The information contained in this section may have been updated after the patient was seen, as this information can be updated by other users. Medical History Abnormal cardiovascular stress test Asthma COPD (chronic obstructive pulmonary disease) Hyperlipidemia Hyperlipidemia associated with type 2 diabetes mellitus Morbidly obese Coronary artery disease Typical angina Abnormal result of cardiovascular function study Tachycardia Diastolic dysfunction HTN (hypertension) Edema Dyspnea Chest pain BMI 36.0-36.9,adult Depression Family History Other No significant family history Social History Smoking Status: Never smoker second hand exposure: No alcohol intake: never substance use type: denies use current occupational status: unemployed Travel in the last 8 weeks: None household members: none housing: house current occupational exposures/hazards: No caffeine: Yes ROS Obtained: Yes All systems reviewed & no additional complaints except as documented and Yes Systems reviewed as appropriate & no additional complaints except as documented Constitutional Constitutional: Reports system reviewed and no additional complaints, except as documented, Reports as per HPI and Reports headache(s) ENT Ears, Nose, Mouth, and Throat: Reports system reviewed and no additional complaints, except as documented, Reports as per HPI, Reports headache(s), Reports sinus pain and Reports sinus pressure Cardiovascular Cardiovascular: Reports system reviewed and no additional complaints, except as documented and Reports as per HPI Respiratory Respiratory: Reports system reviewed and no additional complaints, except as documented, Reports as per HPI, Reports chest congestion and Reports cough Gastrointestinal Gastrointestingal: Reports system reviewed and no additional complaints, except as documented and as per HPI Neurologic Neurologic: Reports headache(s) Physical Exam General General appearance: alert and in no apparent distress ENT ENT exam: Present mucous membranes moist Expanded ENT Exam Nose exam: Present sinus tenderness Throat exam: Present other (PND noted) Respiratory Respiratory exam: Present normal lung sounds bilaterally; Absent respiratory distress or wheezes Cardiovascular Cardiovascular exam: Present regular rate, normal rhythm and normal heart sounds Neurological Exam Neurological exam: Present alert, oriented X3 and normal gait Medical Decision Making Medical Records Screening: Per USPSTF and CDC recommendations, given the prevalence of disease in our region, it is our hospital?s policy to screen for HIV and viral Hepatitis for all patients aged 18 and over and those with ongoing risk factors. Alex Inquiry Pt receiving controlled substance: No Alex was queried for this patient: No Vital Signs: 01/06/24 10:07 Temperature 98.1 F Temperature Source Oral Pulse Rate [Radial] 65 Respiratory Rate 16 Blood Pressure [Right Arm] 147/84 H Blood Pressure Mean [Right Arm] 105 Blood Pressure Source [Right Arm] Automatic Cuff Blood Pressure Position [Right Arm] Sitting 02 Sat by Pulse Oximetry 98 Oxygen Delivery Method Room Air Medical Decision Narrative: Patient states she has taken azithromycin and medrol in the past without reactions or complications
[2024-01-06 10:53] VITALS: BP 147/84; PULSE 65; RESP 16; TEMP 36.7; O2SAT 98
== END 2024-01-06 10:55 | disposition home or self-care (01) ==
PROVIDERS: Emergency Provider Nurse Practitioner; PCP Internal Medicine
DX: J40 Bronchitis, not specified as acute or chronic (principal); J32.9 Chronic sinusitis, unspecified; R09.89 Other specified symptoms and signs involving the circulatory and respiratory systems
CPT/HCPCS: 99212; G0381

== ENCOUNTER 2024-02-05 11:19 | Outpatient (POV) | payer MEDICARE, SELFPAY ==
[2024-02-05 11:49] VITALS: BP 129/81; PULSE 72; RESP 16; O2SAT 100; BMI 36.9
--- NOTE | 2024-02-05 12:05 | A.OFFVIS_ITS ---
[facility] Disclaimer: The information contained in this section may have been updated after the patient was seen, as this information can be updated by other users. Medical History Abnormal cardiovascular stress test Asthma COPD (chronic obstructive pulmonary disease) Hyperlipidemia Hyperlipidemia associated with type 2 diabetes mellitus Morbidly obese Coronary artery disease Typical angina Abnormal result of cardiovascular function study Tachycardia Diastolic dysfunction HTN (hypertension) Edema Dyspnea Chest pain BMI 36.0-36.9,adult Depression Family History Other No significant family history Social History Smoking Status: Never smoker second hand exposure: No alcohol intake: never substance use type: denies use current occupational status: other Travel in the last 8 weeks: None household members: none housing: house current occupational exposures/hazards: No caffeine: Yes PM Subjective & Objective Subjective Subjective:: Patient is a pleasant 53-year-old female who presents today for follow-up of lumbar epidural steroid injection L5-S1 on 01/06/2024. Today she rates her pain a 7 out of 10. Patient denies any new trauma or injury. She does state that she had at least 80% improvement with this injection and feels like it still helping. Patient does have increased pain today however due to the fact that she is currently moving out of her mother's house. 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 Patient is trying to find somewhere to rent. Patient is currently managed with tizanidine 4 mg at bedtime, methocarbamol 500 mg twice a day and Tylenol 3 daily. She denies any side effects from this medication. She is requesting refills. Her Alex has been reviewed and is appropriate. Review of Systems: General: No recent weight changes, no fever, no sleep disturbances Respiratory: No cough, no shortness of air, no recurring pulmonary infections Cardiovascular/peripheral vascular: No chest pain, no palpitations, no edema, no shortness of breath Gastrointestinal: No new onset incontinence, normal bowel movements reported Genitourinary: No new onset incontinence Musculoskeletal: Low back pain Psychiatric: [Normal mood/affect] Neurological: [Denies weakness in extremities], [denies balance issues] Pain at rest (0-10 scale): 7 Objective Objective:: Physical Exam: General: Alert and oriented x3, no acute distress, pleasant and cooperative Lungs: Respirations even and unlabored, symmetrical chest expansion Eyes: PERRL Musculoskeletal: Flexion and extension of lumbar [spine] somewhat guarded secondary to pain, [antalgic gait noted] Neurological: Speech clear, no gross sensory deficit Has patient had previous pain injection?: Yes Percent improvement in pain since last injection: 80% Conservative treatment options previously tried: Home exercise plan Length of treatment: More than 12 weeks Meds Home Medications and Allergies Home Medications ?Medication ?Instructions ?Recorded ?Confirmed ?Type estradiol 1 mg tablet 1 mg PO DAILY Supplement 12/08/19 02/05/24 History methylcellulose (with sugar) oral 1 tbsp PO DAILY PRN Constipation 04/03/21 02/05/24 History powder (Citrucel (sucrose) oral powder) polyethylene glycol 3350 17 17 g PO DAILY PRN Constipation 04/03/21 02/05/24 History gram/dose oral powder (Miralax) trazodone 50 mg tablet 50 mg PO HS Insomnia 07/17/21 02/05/24 History prazosin 1 mg capsule 1 mg PO DAILY High blood pressure 07/20/21 02/05/24 History aspirin 81 mg tablet,delayed 81 mg PO DAILY Heart health 01/07/22 02/05/24 History release albuterol sulfate 5 mg/mL(0.5 %) 5 mg inhalation Q4H PRN COPD 12/18/22 02/05/24 Rx solution for nebulization #4,500 mL clopidogrel 75 mg tablet (Plavix) 75 mg PO QDAY #90 tabs 01/15/23 02/05/24 Rx spironolactone 100 mg tablet See Rx Instructions .Route 02/12/23 02/05/24 Rx .COMPLEX #90 tabs buspirone 5 mg tablet 5 mg PO BID #180 tabs 04/24/23 02/05/24 Rx cariprazine 1.5 mg capsule 1.5 mg PO DAILY #90 caps 04/24/23 02/05/24 Rx (Vraylar) budesonide-formoterol HFA 160 See Rx Instructions .Route 05/27/23 02/05/24 Rx mcg-4.5 mcg/actuation aerosol .COMPLEX #10.2 grams inhaler bisoprolol fumarate 5 mg tablet See Rx Instructions .Route 06/13/23 02/05/24 Rx .COMPLEX #90 tabs bumetanide 2 mg tablet See Rx Instructions .Route 07/10/23 02/05/24 Rx .COMPLEX #90 tabs escitalopram oxalate 20 mg tablet 20 mg PO DAILY 07/30/23 02/05/24 History estradiol 0.01% (0.1 mg/gram) 1 applic vaginal DIRECTED 07/30/23 02/05/24 History vaginal cream linaclotide 145 mcg capsule 145 mcg PO DAILY #30 caps 07/30/23 02/05/24 Rx (Linzess) pantoprazole 40 mg tablet,delayed 40 mg PO DAILY #30 tabs 07/30/23 02/05/24 Rx release (Protonix) acetaminophen 300 mg-codeine 30 mg 1 tab PO DAILY #2 tabs 11/20/23 02/05/24 Rx tablet atorvastatin 10 mg tablet See Rx Instructions .Route 11/27/23 02/05/24 Rx .COMPLEX #90 tabs levofloxacin 750 mg tablet 750 mg PO DAILY #7 tabs 11/27/23 02/05/24 Rx acetaminophen 300 mg-codeine 30 mg 1 tab PO DAILY #30 tabs 12/10/23 02/05/24 Rx tablet methocarbamol 500 mg tablet 500 mg PO BID Pain #60 tabs 12/10/23 02/05/24 Rx tizanidine 4 mg tablet (Zanaflex) 4 mg PO HS Pain #30 tabs 12/10/23 02/05/24 Rx azithromycin 250 mg tablet See Rx Instructions PO .COMPLEX 5 01/06/24 02/05/24 Rx (Zithromax Z-Tesfaye) days #6 tabs benzonatate 100 mg capsule 100 mg PO TID PRN cough #30 caps 01/06/24 02/05/24 Rx prednisone 20 mg tablet 20 mg PO BID 5 days #10 tabs 01/06/24 02/05/24 Rx New Prescriptions to Start Prescriptions: Allergies Allergy/AdvReac Type Severity Reaction Status Date / Time No Known Allergies Allergy Verified 12/11/23 10:08 Assessment and Plan *Assessment and plan (1) Lumbar radiculopathy: Status: Acute Category: Medical Code(s): M54.16 - Radiculopathy, lumbar region (2) Degenerative disc disease, lumbar: Status: Acute Category: Medical Code(s): M51.36 - Other intervertebral disc degeneration, lumbar region Plan Patient has had significant improvement following her lumbar epidural and does not require any additional injection therapy at this time. Patient will be refilled on her tizanidine, methocarbamol and Tylenol 3 with a 2-month supply. Patient will return to clinic in 2 months for reevaluation of symptoms and plan of care. Risks and benefits of the medication have been explained in detail to the patient. The patient does understand the risk of dependence on the medication when given over a prolonged period. Patient has been advised of risks of oversedation with the prescribed medication. Narcan has been offered to the paitent in the event of oversedation. Patient has been advised that a family member should also be educated regarding administration of Narcan. The patient has been advised to consult with his/her primary care provider and pharmacist regarding drug-drug interaction of medications currently prescribed. Patient has been prescribed a controlled substance after being counseled on the medication, medication safety, and possible side effects. Opioid contract was reviewed and signed by the patient, and that they have agreed to all of the terms set forth by our compliance program. Patient has been instructed to contact the clinic with any concerns before the next appointment. Dr. Kirk has reviewed this note and agrees with this plan of care. This note was dictated using voice recognition software and make contain errors or omissions.
== END 2024-02-05 23:59 | disposition home or self-care (01) ==
PROVIDERS: PCP Internal Medicine; Visit Provider Nurse Practitioner Family
DX: M51.16 Intervertebral disc disorders with radiculopathy, lumbar region (principal); Z79.899 Other long term (current) drug therapy
CPT/HCPCS: 99212; G0463

== ENCOUNTER 2024-03-01 08:30 | Emergency (ER) | payer MEDICARE, SELFPAY ==
[2024-03-01] VITALS (9 sets, daily range): BP systolic 101–128; BP diastolic 54–75; PULSE 57–85; RESP 13–19; TEMP 36.8; O2SAT 94–98; BMI 39.9; BMI 24.2
[2024-03-01 08:54] LABS: Apearance,Urine Clear (Clear); Bilirubin,Urine Negative (Negative); Blood, Urine Negative (Negative); Color,Urine Dark Yellow (Yellow); Glucose,Urine (UA) Negative (Negative); Ketones,Urine Negative (Negative); Protein,Urine Negative (Negative); UTC Leukocyte Esterase,Urine Negative (Negative); UTC Nitrate,Urine Negative (Negative); Urobilinogen,Urine 0.2 EU/dl (0.2)
--- NOTE | 2024-03-01 09:08 | EXP.UTC ---
Discharge Plan Disposition Patient Disposition: Home, Self-Care Condition: Good Prescriptions Prescriptions: No Action methocarbamol 500 mg tablet 500 mg PO BID Patient Comments: TAKE ONE TABLET BY MOUTH TWICE DAILY FOR PAIN MAY CAUSE DROWSINESS atorvastatin 10 mg tablet 10 mg PO DAILY tizanidine 4 mg tablet 4 mg PO DAILY Patient Comments: TAKE ONE TABLET BY MOUTH EVERY DAY AT BEDTIME FOR PAIN acetaminophen-codeine 300-30 mg tablet 1 tab PO DAILY Patient Comments: TAKE ONE TABLET BY MOUTH EVERY DAY MAY CAUSE DROWSINESS Referrals Follow up/Referrals: Manjinder Mcgowan DO [Primary Care Provider] - See instructions Activity Restrictions/Add. Instructions Additional Instructions/Restrictions: Your evaluation was most consistent with enteritis, which is an infection of the small intestine. This is typically a self-limiting diagnosis. Care is generally supportive to include a bland diet consisting of small snacks and lieu of large/greasy/high-fat meals. Your symptoms may progress to include diarrhea. Manage pain with Tylenol and ibuprofen for which you can alternate every 3 hours or take both medications together every 6 hours. If you are unable to tolerate liquids, develop high fever, have uncontrolled pain, please return to the emergency department for reevaluation. Please follow up with your primary care provider in 2-3 days. Clinical Impressions Clinical Impression: Enteritis Stand Alone Forms Stand Alone Forms: Work/School Release Instructions Patient Instructions: DI for Acute Abdominal Pain, DI for Enteritis Print Language Print Language: Macedonian Discharge ED Provider: Roxann Mcclellan [facility] HPI General Chief complaint: Abdominal Pain Stated complaint: Pain in r side Mode of Arrival: Ambulatory Source of Information: Patient Limitations: No Limitations Time Seen by Provider: 03/01/24 09:08 Description of Symptoms (Recalled from Triage Doc. by RN): PATIENT C/O RLQ PAIN THAT IS SHARP AND INTERMITTEN X 4 DAYS HEENT Symptoms (Recalled from RN notes): No Resp Symptoms (Recalled from RN notes): No Skin Symptoms (Recalled from RN notes): No MS Symptoms (Recalled from RN notes): No Functional Status (Recalled from RN notes): WNL History of Present Illness Provider Complaint: Patient states that she has been having intermittent pain for about 4 days in her right lower abdomen but today the pain is worse States that she was worried it may be a UTI or appendix so she came in to get checked Denies recently feeling ill reports hysterectomy and had her gall bladder removed Related Data Home Medications ?Medication ?Instructions ?Recorded ?Confirmed acetaminophen 300 mg-codeine 30 mg 1 tab PO DAILY 03/01/24 03/01/24 tablet atorvastatin 10 mg tablet 10 mg PO DAILY 03/01/24 03/01/24 methocarbamol 500 mg tablet 500 mg PO BID 03/01/24 03/01/24 tizanidine 4 mg tablet 4 mg PO DAILY 03/01/24 03/01/24 Allergies Allergy/AdvReac Type Severity Reaction Status Date / Time No Known Allergies Allergy Verified 12/11/23 10:08 Worker's Comp Is this a Worker's Comp case?: No [facility] Disclaimer: The information contained in this section may have been updated after the patient was seen, as this information can be updated by other users. Medical History (Updated 03/01/24 @ 13:34 by Roxann Mcclellan MD) Abnormal cardiovascular stress test Asthma COPD (chronic obstructive pulmonary disease) Hyperlipidemia Hyperlipidemia associated with type 2 diabetes mellitus Morbidly obese Coronary artery disease Typical angina Abnormal result of cardiovascular function study Tachycardia Diastolic dysfunction HTN (hypertension) Edema Dyspnea Chest pain BMI 36.0-36.9,adult Depression Surgical History (Updated 03/01/24 @ 09:12 by Sulema Larry RN) History of hysterectomy Family History Other No significant family history Social History Smoking Status: Never smoker second hand exposure: No alcohol intake: never substance use type: denies use current occupational status: other Travel in the last 8 weeks: None household members: none housing: house current occupational exposures/hazards: No caffeine: Yes ROS Obtained: Yes All systems reviewed & no additional complaints except as documented and Yes Systems reviewed as appropriate & no additional complaints except as documented Constitutional Constitutional: Reports system reviewed and no additional complaints, except as documented, Reports as per HPI, Denies body ache, Denies chills and Denies fever(s) ENT Ears, Nose, Mouth, and Throat: Reports system reviewed and no additional complaints, except as documented and Reports as per HPI Cardiovascular Cardiovascular: Reports system reviewed and no additional complaints, except as documented and Reports as per HPI Respiratory Respiratory: Reports system reviewed and no additional complaints, except as documented and Reports as per HPI Gastrointestinal Gastrointestingal: Reports system reviewed and no additional complaints, except as documented, as per HPI and abdominal pain (right lower quad pain worse over the last 4 days) Genitourinary Female Genitourinary: Reports system reviewed and no additional complaints, except as documented and Reports as per HPI Physical Exam General General appearance: alert and in no apparent distress ENT ENT exam: Present mucous membranes moist Respiratory Respiratory exam: Present normal lung sounds bilaterally; Absent respiratory distress or wheezes Cardiovascular Cardiovascular exam: Present regular rate, normal rhythm and normal heart sounds Abdominal Exam Abdominal exam: Present soft, tenderness (reports tenderness with palpation right lower quad) and normal bowel sounds; Absent distention Neurological Exam Neurological exam: Present alert, oriented X3 and normal gait Medical Decision Making Medical Records Screening: Per USPSTF and CDC recommendations, given the prevalence of disease in our region, it is our hospital?s policy to screen for HIV and viral Hepatitis for all patients aged 18 and over and those with ongoing risk factors. Alex Inquiry Pt receiving controlled substance: No Alex was queried for this patient: No Vital Signs: 03/01/24 08:50 Temperature 98.3 F Temperature Source Oral Pulse Rate [Left Brachial] 73 Respiratory Rate 19 Blood Pressure [Left Arm] 128/68 Blood Pressure Mean [Left Arm] 88 Blood Pressure Source [Left Arm] Automatic Cuff Blood Pressure Position [Left Arm] Sitting 02 Sat by Pulse Oximetry 98 Oxygen Delivery Method Room Air Lab Data Lab results reviewed: Yes I reviewed the patient's lab results. Lab Results 03/01/24 08:47: Urine Color Dark yellow, Urine Appearance Clear, Urine pH 5.0, Ur Specific [place] 1.030, Urine Protein Negative, Urine Glucose (UA) Negative, Urine Ketones Negative, Urine Blood Negative, Urine Nitrate Negative, Urine Bilirubin Negative, Urine Urobilinogen 0.2, Ur Leukocyte Esterase Negative 03/01/24 09:25 03/01/24 09:25 Medical Decision Narrative: Patient reports intermittent like pain that started in her right lower quad about 4 days ago but today it is constant Reports pain worse at times with movement concerned it may be her appendix discussed with patient and recommended transfer to the ED for further work up and evaluation and she agreed patient moved to the ED for further work up and evaluation
--- NOTE | 2024-03-01 09:17 | PC.NURSE ---
PATIENT SENT TO ER PER Yolette PAK APRN FOR FURTHER EVALUATION. REPORT GIVEN TO DR. HUANG BY Yolette PAK APRN. PATIENT AMBULATED TO ER WITH [facility] STAFF AT THIS TIME.
--- NOTE | 2024-03-01 09:19 | PC.NURSE ---
pt arrived to ed from [facility] walked over by nurse roberto carlos
--- NOTE | 2024-03-01 09:32 | CT_ITS ---
FINAL REPORT TECHNIQUE: After the administration of intravenous contrast, axial images were obtained through the abdomen and pelvis by computed tomography. This study was performed with technique to keep radiation doses as low as reasonably achievable, (ALARA). Individualized dose reduction techniques using automated exposure control or adjustment of the MA and/or KV according to the patient's size were employed. CLINICAL HISTORY: RLQ pain, severe, guarding FINDINGS: Abdomen: The lung bases demonstrate mild bibasilar atelectasis. Patient is status post cholecystectomy. The liver is normal in size and attenuation. The spleen is unremarkable. The adrenals are normal. The pancreas is unremarkable. The kidneys enhance appropriately. The aorta is normal in caliber. There is no free fluid or adenopathy. Pelvis: The appendix is normal. There are multiple fluid-filled loops in a nonspecific pattern which may represent an enteritis. Patient is status post hysterectomy. The urinary bladder is unremarkable. There is no free fluid or adenopathy. IMPRESSION: Multiple fluid filled bowel loops in a nonspecific pattern which may represent an enteritis. Reviewed, Interpreted and Dictated by Maverick Barnes III, MD Transcribed by Joanne Guido Authenticated and [facility]
--- NOTE | 2024-03-01 10:05 | ED_ITS ---
Discharge Plan Disposition Patient Disposition: Home, Self-Care Condition: Good Prescriptions Prescriptions: No Action methocarbamol 500 mg tablet 500 mg PO BID Patient Comments: TAKE ONE TABLET BY MOUTH TWICE DAILY FOR PAIN MAY CAUSE DROWSINESS atorvastatin 10 mg tablet 10 mg PO DAILY tizanidine 4 mg tablet 4 mg PO DAILY Patient Comments: TAKE ONE TABLET BY MOUTH EVERY DAY AT BEDTIME FOR PAIN acetaminophen-codeine 300-30 mg tablet 1 tab PO DAILY Patient Comments: TAKE ONE TABLET BY MOUTH EVERY DAY MAY CAUSE DROWSINESS Referrals Follow up/Referrals: Manjinder Mcgowan DO [Primary Care Provider] - See instructions Activity Restrictions/Add. Instructions Additional Instructions/Restrictions: Your evaluation was most consistent with enteritis, which is an infection of the small intestine. This is typically a self-limiting diagnosis. Care is generally supportive to include a bland diet consisting of small snacks and lieu of large/greasy/high-fat meals. Your symptoms may progress to include diarrhea. Manage pain with Tylenol and ibuprofen for which you can alternate every 3 hours or take both medications together every 6 hours. If you are unable to tolerate liquids, develop high fever, have uncontrolled pain, please return to the emergency department for reevaluation. Please follow up with your primary care provider in 2-3 days. Clinical Impressions Clinical Impression: Enteritis Instructions Patient Instructions: DI for Acute Abdominal Pain, DI for Enteritis Print Language Print Language: Swedish Discharge ED Provider: Roxann Mcclellan General Adult HPI General Chief complaint: Abdominal Pain Stated complaint: Pain in r side Time Seen by Provider: 03/01/24 09:08 Mode of Arrival: Ambulatory Source of Information: Patient Limitations: No Limitations Description of Symptoms (Recalled from ER Triage Doc. by RN): pt presents to ED from [facility] for further evaluation. pt reports that 4 days ago she began to have right lower terrance pain. symptoms intermittent. pt reports no gallbladder but does have appendix. History of Present Illness HPI narrative: Jessica Sawyer is a 53 y/o female presenting with right lower quadrant pain. Patient states she has had the pain for the past 4 days and that it has continued. Patient states it is not better or worse than it was 4 days ago. She describes it as sharp and stabbing and localized in the right lower quadrant. She states her bowel movements and urinary habits have been normal. Patient has history of total hysterectomy and cholecystectomy. Patient has not had fever, chills, nausea, vomiting. Patient does have pain with ambulation as well as over bumps in the car ride. Related Data Home Medications ?Medication ?Instructions ?Recorded ?Confirmed acetaminophen 300 mg-codeine 30 mg 1 tab PO DAILY 03/01/24 03/01/24 tablet atorvastatin 10 mg tablet 10 mg PO DAILY 03/01/24 03/01/24 methocarbamol 500 mg tablet 500 mg PO BID 03/01/24 03/01/24 tizanidine 4 mg tablet 4 mg PO DAILY 03/01/24 03/01/24 Allergies Allergy/AdvReac Type Severity Reaction Status Date / Time No Known Allergies Allergy Verified 12/11/23 10:08 [facility] Disclaimer: The information contained in this section may have been updated after the patient was seen, as this information can be updated by other users. Medical History (Updated 03/01/24 @ 13:34 by Roxann Mcclellan MD) Abnormal cardiovascular stress test Asthma COPD (chronic obstructive pulmonary disease) Hyperlipidemia Hyperlipidemia associated with type 2 diabetes mellitus Morbidly obese Coronary artery disease Typical angina Abnormal result of cardiovascular function study Tachycardia Diastolic dysfunction HTN (hypertension) Edema Dyspnea Chest pain BMI 36.0-36.9,adult Depression Surgical History (Updated 03/01/24 @ 09:12 by Sulema Larry RN) History of hysterectomy Family History Other No significant family history Social History Smoking Status: Never smoker second hand exposure: No alcohol intake: never substance use type: denies use current occupational status: other household members: none housing: house current occupational exposures/hazards: No caffeine: Yes Other Medical History Have you received the Flu Vaccine for this season: No Have you received the Pneumonia Vaccine: Yes ROS Obtained: Yes All systems reviewed & no additional complaints except as documented Physical Exam General General appearance: alert and in no apparent distress Head Head exam: atraumatic, normocephalic and normal inspection Eye Eye exam: Present normal appearance, PERRL and EOMI Neck Neck exam: Present normal inspection, full ROM and trachea midline; Absent meningismus or lymphadenopathy Respiratory Respiratory exam: Present normal lung sounds bilaterally; Absent respiratory distress Cardiovascular Cardiovascular exam: Present regular rate and normal rhythm; Absent JVD Abdominal Exam Abdominal exam: Present soft, tenderness, guarding and normal bowel sounds; Absent distention or heel tap sign Abdominal tenderness: Present RLQ Neurological Exam Neurological exam: Present alert and oriented X3 Skin Skin exam: Present warm, dry, intact and normal color Medical Decision Making Medical Records Screening: Per USPSTF and CDC recommendations, given the prevalence of disease in our region, it is our hospital?s policy to screen for HIV and viral Hepatitis for all patients aged 18 and over and those with ongoing risk factors. Alex Inquiry Pt receiving controlled substance: No Vital Signs: 03/01/24 08:50 03/01/24 09:17 03/01/24 09:31 Temperature 98.3 F 98.3 F Temperature Source Oral Oral Pulse Rate 73 Pulse Rate [Left Brachial] 73 70 Respiratory Rate 19 13 Blood Pressure 104/59 L Blood Pressure [Left Arm] 128/68 122/64 Blood Pressure Mean 74 Blood Pressure Mean [Left Arm] 88 83 Blood Pressure Source [Left Arm] Automatic Cuff Blood Pressure Position [Left Arm] Sitting 02 Sat by Pulse Oximetry 98 97 97 Oxygen Delivery Method Room Air Room Air Room Air 03/01/24 10:01 03/01/24 11:09 03/01/24 11:31 Temperature Temperature Source Pulse Rate 70 63 62 Pulse Rate [Left Brachial] Respiratory Rate Blood Pressure 110/54 L 118/63 128/67 Blood Pressure [Left Arm] Blood Pressure Mean 72 76 Blood Pressure Mean [Left Arm] Blood Pressure Source [Left Arm] Blood Pressure Position [Left Arm] 02 Sat by Pulse Oximetry 98 94 L 96 Oxygen Delivery Method Room Air Room Air 03/01/24 12:01 03/01/24 12:30 Temperature Temperature Source Pulse Rate 57 L 60 Pulse Rate [Left Brachial] Respiratory Rate Blood Pressure 101/70 L 115/70 Blood Pressure [Left Arm] Blood Pressure Mean 78 85 Blood Pressure Mean [Left Arm] Blood Pressure Source [Left Arm] Blood Pressure Position [Left Arm] 02 Sat by Pulse Oximetry 96 97 Oxygen Delivery Method Lab Data Lab Results 03/01/24 08:47: Urine Color Dark yellow, Urine Appearance Clear, Urine pH 5.0, Ur Specific [place] 1.030, Urine Protein Negative, Urine Glucose (UA) Negative, Urine Ketones Negative, Urine Blood Negative, Urine Nitrate Negative, Urine Bilirubin Negative, Urine Urobilinogen 0.2, Ur Leukocyte Esterase Negative 03/01/24 09:25: WBC 6.6, RBC 4.52, Hgb 14.8, Hct 43.0, MCV 95.2, MCH 32.7 H, MCHC 34.3, RDW 13.4, Plt Count 248, MPV 9.5, Neut % (Auto) 52.3, Lymph % (Auto) 37.0, [place] % (Auto) 6.9, Eos % (Auto) 2.4, Baso % (Auto) 1.4, Neut # (Auto) 3.5, Lymph # (Auto) 2.4, [place] # (Auto) 0.5, Eos # (Auto) 0.2, Baso # (Auto) 0.1, Sodium 140, Potassium 4.4, Chloride 111 H, Carbon Dioxide 23, Anion Gap 10.4, B UN 18 H, Creatinine 0.90, Estimated Creat Clear 78, Estimated GFR 65, Est GFR ( Amer) 79, Glucose 98, Calcium 9.0, Total Bilirubin 0.6, AST 44 H, ALT 30, Alkaline Phosphatase 54, C-Reactive Protein 7.0 H, Total Protein 7.1, Albumin 4.2, Globulin 2.9, Albumin/Globulin Ratio 1.4, Lipase 116 03/01/24 10:20: Lactate 0.6 L 03/01/24 09:25 03/01/24 09:25 Orders (Tests/Meds): ED MEDICATIONS Generic Name Dose Route Start Last Admin Trade Name Freq PRN Reason Stop Dose Admin Sodium Chloride 10 ml 03/01/24 10:51 03/01/24 10:52 Sodium Chloride 0.9% 10ml Syr (Rad Only) IV 03/31/24 10:50 10 ml NEEDED PRN Administration Maintain IV Site Discontinued Medications Generic Name Dose Route Start Last Admin Trade Name Freq PRN Reason Stop Dose Admin Iopamidol 75 ml 03/01/24 10:51 03/01/24 10:52 Iopamidol-370 (76%);100ml Bottle IV 03/01/24 10:52 75 ml ONCE ONE Administration Morphine Sulfate 4 mg 03/01/24 10:20 03/01/24 10:28 Morphine 4mg/Ml Syringe IV 03/01/24 10:21 4 mg ONCE ONE Administration Ondansetron HCl 4 mg 03/01/24 10:20 12/02/24 10:28 Ondansetron 4mg/2ml Vial IV 03/01/24 10:21 4 mg ONCE ONE Administration ORDERS Category Date Time Status CT abdomen pelvis w con Stat Cat Scan 03/01/24 09:32 Completed C-Reactive Protein Stat Lab 03/01/24 09:25 Completed Complete Blood Count Auto Diff Stat Lab 03/01/24 09:25 Completed Comprehensive Metabolic Panel Stat Lab 03/01/24 09:25 Completed HIV (1&2) Antibody Rapid Stat Lab 03/01/24 09:25 Received Hep C Ab with Reflex to RNA Stat Lab 03/01/24 09:25 Received Lactic Acid Stat Lab 03/01/24 10:20 Completed Lipase Stat Lab 03/01/24 09:25 Completed Medical Decision Narrative: In summary, patient is a 53-year-old female presenting with right lower quadrant pain. Differential diagnosis includes but is not limited to, appendicitis, ovarian pathology, nephrolithiasis, diverticulitis, constipation, colon cancer, among others. In order to adequately evaluate the patient, she had a urinalysis performed in the [facility] which was negative for evidence of hematuria or acute cystitis. Additional workup includes CBC with differential, CMP, lipase, lactate, CT abdomen/pelvis with IV contrast. It should be noted that patient's past medical history is significant for CHF, ION, constipation, GERD, COPD, hypertension. CMP unremarkable and non-actionable. Lipase within normal limits. CBC without leukocytosis, anemia, thrombocytopenia. Lactate 0.6. CRP mildly elevated at 7. CT abdomen/pelvis with IV contrast personally reviewed by me and significant for dilated bowel loops, normal-appearing appendix and bladder. Final radiologic report notes likely enteritis with no evidence of appendicitis. I discussed the patient findings with her at bedside. Patient advised of symptomatic treatment at this time. Patient is overall well-appearing, tolerating oral intake and afebrile. No antibiotics will be given at this time. Patient given follow-up recommendations. Patient in agreement with this plan and discharged in stable condition. Roxann Mcclellan MD PGY-3, Emergency Medicine Critical Care Critical Care Time Critical Care Time: No
--- NOTE | 2024-03-01 10:09 | HMH.ITSTN ---
called and spoke with nurse. stated we needed labs due to patient medical hx of hypertension. We need Bun Creat GFR for ct study.
[2024-03-01] MEDS: ONDANSETRON 4MG/2ML VIAL 4 MG IV (10:28)
[2024-03-01] MEDS: MORPHINE 4MG/ML SYRINGE 4 MG IV (10:28)
--- NOTE | 2024-03-01 10:32 | PC.NURSE ---
I rounded on the pt and took her a warm blanket. no new complaints. no needs voiced. call palmer in reach.
[2024-03-01 10:33] LABS: Chloride 111 mmol/L (98-107)
[2024-03-01 10:34] LABS: Albumin Level 4.2 g/dl (3.5-5.0); Potassium 4.4 mmoL/L (3.5-5.1); Sodium 140 mmol/L (136-145)
[2024-03-01 10:36] LABS: Alanine Aminotransferase 30 U/L (12-78); Anion Gap 10.4 mEq/L (5-15); Aspartate Amino Transferase 44 U/L (14-36); Blood Urea Nitrogen 18 mg/dl (7-17); Carbon Dioxide 23 mmol/L (22.0-30.0); Creatinine Clearance Estimated 78 mL/min (50-200); Estimated Glomerular Filt Rate 65 ml/min (>60); GFR (African American) 79 ML/MIN (>60); Lipase 116 U/L (23-300)
[2024-03-01 10:37] LABS: Albumin/Globulin Ratio 1.4 (1.1-1.8); Alkaline Phosphatase 54 U/L (38-126); Bilirubin,Total 0.6 mg/dl (0.2-1.3); Globulin 2.9 g/dL (1.3-3.2); Glucose 98 mg/dl (74-100); Total Protein,Serum 7.1 g/dl (6.3-8.2)
[2024-03-01 10:46] LABS: Lactic Acid 0.6 mmol/L (0.7-2.1)
[2024-03-01] MEDS: IOPAMIDOL-370 (76%);100ML BOTTLE 75 ML IV (10:52)
[2024-03-01] MEDS: SODIUM CHLORIDE 0.9% 10ML SYR (RAD ONLY) 10 ML IV (10:52)
[2024-03-01 10:57] LABS: Basophils # 0.1 K/mm3 (0-0.2); Basophils % 1.4 % (0.1-2.0); Eosinophils # 0.2 K/mm3 (0.0-0.4); Eosinophils % 2.4 % (0.1-12.0); Hemoglobin 14.8 g/dL (12.2-16.2); Lymphocytes # 2.4 K/mm3 (0.7-4.5); Mean Corpuscular HGB Conc 34.3 g/dL (31.8-35.4); Mean Corpuscular Hemoglobin 32.7 pg (27.0-31.2); Mean Corpuscular Volume 95.2 fl (81-99); Mean Platelet Volume 9.5 fl (7.4-10.4); Monocytes # 0.5 K/mm3 (0.1-1.0); Monocytes % 6.9 % (1.7-9.3); Neutrophils # 3.5 K/mm3 (1.8-7.8); Neutrophils % 52.3 % (37.0-80.0); Platelet Count 248 K/mm3 (142-424); Red Blood Count 4.52 M/mm3 (4.20-5.40); Red Cell Distribution Width 13.4 % (11.5-17.5); White Blood Count 6.6 K/mm3 (4.8-10.8)
--- NOTE | 2024-03-01 11:17 | PC.NURSE ---
pt ambulated to the bathroom and back to her room without any difficulty. no needs voiced. call palmer in reach.
[2024-03-01 14:50] LABS: HIV (1&2) Antibody Rapid NONREACTIVE (NONREACTIVE)
[2024-03-02 05:11] LABS: HCV Ab Non Reactive (Non Reactive)
== END 2024-03-01 13:55 | disposition home or self-care (01) ==
LOC: UTC 08:34 → ER 09:13
PROVIDERS: Nurse Practitioner; Emergency Provider Student in an Organized Health Care Education/Training Program; PCP Internal Medicine
DX: K52.9 Noninfective gastroenteritis and colitis, unspecified (principal); R10.31 Right lower quadrant pain
CPT/HCPCS: 74177; 80053; 81003; 83605; 83690; 85025; 86140; 86803; 87389; 96374; 96375; 99285; J2270; J2405; Q9967

== ENCOUNTER 2024-03-04 10:53 | Outpatient (CLI) | payer MEDICARE, SELFPAY ==
[2024-03-04 19:36] LABS: Hemoglobin A1C 5.3 % (4.0-6.0)
[2024-03-04 20:03] LABS: Vitamin B12 413 pg/mL (239-931)
== END 2024-03-04 23:59 | disposition home or self-care (01) ==
LOC: LAB.DROPOF 03-05 09:22
PROVIDERS: PCP Internal Medicine; Visit Provider Internal Medicine
DX: R73.03 Prediabetes (principal); E66.01 Morbid (severe) obesity due to excess calories; E55.9 Vitamin D deficiency, unspecified
CPT/HCPCS: 82306; 82607; 83036

== ENCOUNTER 2024-03-26 08:34 | Emergency (ER) | payer MEDICARE, SELFPAY ==
[2024-03-26 09:20] VITALS: BP 122/77; PULSE 74; RESP 20; TEMP 36.9; O2SAT 97; BMI 38.4
--- NOTE | 2024-03-26 09:46 | ED_ITS ---
Discharge Plan Disposition Patient Disposition: Home, Self-Care Condition: Good Prescriptions Prescriptions: No Action atorvastatin 10 mg tablet 10 mg PO HS Patient Comments: TAKE ONE TABLET BY MOUTH EVERY DAY AT BEDTIME spironolactone 100 mg tablet 100 mg PO DAILY Patient Comments: TAKE ONE TABLET BY MOUTH EVERY DAY acetaminophen-codeine 300-30 mg tablet 1 tab PO DAILY Patient Comments: TAKE ONE TABLET BY MOUTH EVERY DAY MAY CAUSE DROWSINESS tramadol 50 mg tablet 50 mg PO Q4-6H Patient Comments: TAKE ONE TABLET BY MOUTH EVERY 4 TO 6 HOURS NEEDED FOR PAIN buspirone 10 mg tablet 10 mg PO DAILY Patient Comments: TAKE ONE TABLET BY MOUTH THREE TIMES DAILY dicyclomine 10 mg capsule 10 mg PO DAILY Patient Comments: TAKE ONE CAPSULE BY MOUTH FOUR TIMES DAILY NEEDED FOR ABDOMINAL PAIN Referrals Follow up/Referrals: Manjinder Mcgowan DO [Primary Care Provider] - See instructions Activity Restrictions/Add. Instructions Additional Instructions/Restrictions: *Monitor Temp, Over the counter Motrin or Tylenol as directed/as needed Tylenol every 4 hours and Motrin every 6 hours (as long as your family doctor has told you that you can take it) for fever or pain. and straight to ER if unable to lower temp less than 101.0 after medication given *Warm salt water gargles may help to soothe the throat *Throat Lozenges? *Warm fluids like tea with honey may help to soothe the throat? *Sleep elevated *Humidifier/Vaporizer Your throat swab was sent for culture. Those results are typically sent to your primary care. Be sure to follow up in 2-3 days with your family doctor/primary care physician if no improvement so they can review those result and treat if necessary. If you don?t have a primary care doctor, I recommend you get one but in the mean time, you will have to return to a walk in clinic Follow up IMMEDIATELY for new or worsening symptoms or no Noticeable improvement over the next 48-72 hours. 911 for difficulty breathing or swallowing Clinical Impressions Clinical Impression: Sore throat (viral) Instructions Patient Instructions: Sore Throat Print Language Print Language: Malay Discharge ED Provider: Danelle Rao [facility] HPI General Stated complaint: sore throat, fever Mode of Arrival: Ambulatory Source of Information: Patient Limitations: No Limitations Time Seen by Provider: 03/26/24 09:46 Description of Symptoms (Recalled from Triage Doc. by RN): PATIENT C/O SORE THROAT SINCE YESTERDAY HEENT Symptoms (Recalled from RN notes): Yes Resp Symptoms (Recalled from RN notes): No Skin Symptoms (Recalled from RN notes): No MS Symptoms (Recalled from RN notes): No Functional Status (Recalled from RN notes): WNL History of Present Illness Provider Complaint: Patient states that she started yesterday with scratchy throat so today when she was still having sore throat she came in to get tested for strep throat Related Data Home Medications ?Medication ?Instructions ?Recorded ?Confirmed acetaminophen 300 mg-codeine 30 mg 1 tab PO DAILY 03/26/24 03/26/24 tablet atorvastatin 10 mg tablet 10 mg PO HS 03/26/24 03/26/24 buspirone 10 mg tablet 10 mg PO DAILY 03/26/24 03/26/24 dicyclomine 10 mg capsule 10 mg PO DAILY 03/26/24 03/26/24 spironolactone 100 mg tablet 100 mg PO DAILY 03/26/24 03/26/24 tramadol 50 mg tablet 50 mg PO Q4-6H 03/26/24 03/26/24 Allergies Allergy/AdvReac Type Severity Reaction Status Date / Time No Known Allergies Allergy Verified 03/11/24 09:56 Worker's Comp Is this a Worker's Comp case?: No [facility] Disclaimer: The information contained in this section may have been updated after the patient was seen, as this information can be updated by other users. Medical History (Updated 03/26/24 @ 09:48 by Danelle Rao APRN) Enteritis Abnormal cardiovascular stress test Asthma COPD (chronic obstructive pulmonary disease) Hyperlipidemia Hyperlipidemia associated with type 2 diabetes mellitus Morbidly obese Coronary artery disease Typical angina Abnormal result of cardiovascular function study Tachycardia Diastolic dysfunction HTN (hypertension) Edema Dyspnea Chest pain BMI 36.0-36.9,adult Depression Surgical History History of hysterectomy Family History Other No significant family history Social History Smoking Status: Never smoker second hand exposure: No alcohol intake: never substance use type: denies use current occupational status: other Travel in the last 8 weeks: None household members: none housing: house current occupational exposures/hazards: No caffeine: Yes Have you lived/traveled outside US in past 30 days?: No Contact w/someone who lives/traveled outside US past 30 days?: No Exposure to someone with infectious disease in past 14 days?: No Do you have a fever (greater than 100.4 F or 38 C)?: Yes Have you tested positive for COVID-19: No Exposed to someone with COVID-19 in past 14 days?: No Do you have a sore throat?: Yes Do you have a cough?: No Do you have any weakness?: No Do you have any diarrhea?: No Are you experiencing any unusual bleeding?: No Do you have any muscle aches/pain?: No Do you have any abdominal pain?: No Are you experiencing loss of taste or smell?: No ROS Obtained: Yes All systems reviewed & no additional complaints except as documented and Yes Systems reviewed as appropriate & no additional complaints except as documented Constitutional Constitutional: Reports system reviewed and no additional complaints, except as documented and Reports as per HPI ENT Ears, Nose, Mouth, and Throat: Reports system reviewed and no additional complaints, except as documented, Reports as per HPI and Reports sore throat Cardiovascular Cardiovascular: Reports system reviewed and no additional complaints, except as documented and Reports as per HPI Respiratory Respiratory: Reports system reviewed and no additional complaints, except as documented and Reports as per HPI Physical Exam General General appearance: alert and in no apparent distress ENT ENT exam: Present mucous membranes moist Expanded ENT Exam Nose exam: Absent sinus tenderness Throat exam: Present tonsillar erythema; Absent tonsillomegaly or tonsillar exudate Respiratory Respiratory exam: Present normal lung sounds bilaterally; Absent respiratory distress or wheezes Cardiovascular Cardiovascular exam: Present regular rate, normal rhythm and normal heart sounds Abdominal Exam Abdominal exam: Present soft and normal bowel sounds; Absent distention or tenderness Neurological Exam Neurological exam: Present alert, oriented X3 and normal gait Medical Decision Making Medical Records Screening: Per USPSTF and CDC recommendations, given the prevalence of disease in our region, it is our hospital?s policy to screen for HIV and viral Hepatitis for all patients aged 18 and over and those with ongoing risk factors. Alex Inquiry Pt receiving controlled substance: No Alex was queried for this patient: No Vital Signs: 03/26/24 09:20 Temperature 98.5 F Temperature Source Oral Pulse Rate [Left Brachial] 74 Respiratory Rate 20 Blood Pressure [Left Arm] 122/77 Blood Pressure Mean [Left Arm] 92 Blood Pressure Source [Left Arm] Automatic Cuff Blood Pressure Position [Left Arm] Sitting 02 Sat by Pulse Oximetry 97 Oxygen Delivery Method Room Air Lab Data Lab results reviewed: Yes I reviewed the patient's lab results.
[2024-03-26 09:49] LABS: UTC Influenza A Antigen Negative (Negative)
[2024-03-26 09:50] LABS: UTC Influenza B Antigen Negative (Negative)
[2024-03-26 09:50] LABS: UTC Strep Screen (Rapid) Negative (Negative)
[2024-03-26 09:54] VITALS: BP 122/77; PULSE 76; RESP 20; TEMP 36.9; O2SAT 97
== END 2024-03-26 09:58 | disposition home or self-care (01) ==
PROVIDERS: Emergency Provider Nurse Practitioner; PCP Internal Medicine
DX: J02.9 Acute pharyngitis, unspecified (principal)
CPT/HCPCS: 87804; 87880; 99213; G0381

== ENCOUNTER 2024-04-12 18:21 | Emergency (ER) | payer MEDICARE, SELFPAY ==
[2024-04-12 18:35] VITALS: BP 139/79; PULSE 84; RESP 17; TEMP 37.2; O2SAT 97; BMI 40.4
--- NOTE | 2024-04-12 18:54 | EXP.UTC ---
Discharge Plan Disposition Patient Disposition: Home, Self-Care Condition: Good Prescriptions Prescriptions: New azithromycin [Zithromax Z-Tesfaye] 250 mg tablet See Rx Instructions .ROUTE .COMPLEX 5 Days Qty: 6 0RF Rx Instructions: For 250 mg dose pack: take 500 mg today (day 1), then 250 mg for 4 days (days 2-5) No Action methocarbamol 500 mg tablet 500 mg PO HS albuterol sulfate 0.63 mg/3 mL solution for nebulization 0.63 mg inhalation Q6H bumetanide 2 mg tablet 2 mg PO DAILY trazodone 50 mg tablet 50 mg PO DAILY prazosin 1 mg capsule 1 mg PO HS clopidogrel [Plavix] 75 mg tablet 75 mg PO DAILY bisoprolol fumarate 5 mg tablet 5 mg PO DAILY estradiol 1 mg tablet 1 mg PO DAILY Rx Instructions: off 1 week; repeat cycle pantoprazole 40 mg tablet,delayed release (DR/EC) 40 mg PO DAILY polyethylene glycol 3350 [Miralax] 17 gram/dose powder 17 g PO DAILY estradiol 0.01 % (0.1 mg/gram) cream 1 appful vaginal DAILY Rx Instructions: for 14 days methylcellulose (laxative) Powder 2 g PO DAILY escitalopram oxalate 20 mg tablet 20 mg PO DAILY tizanidine 4 mg capsule 4 mg PO HS PRN linaclotide 145 mcg capsule 145 mcg PO DAILY Vraylar 1.5 mg capsule 1.5 mg PO Q OTHER DAY atorvastatin 10 mg tablet 10 mg PO HS Patient Comments: TAKE ONE TABLET BY MOUTH EVERY DAY AT BEDTIME spironolactone 100 mg tablet 100 mg PO DAILY Patient Comments: TAKE ONE TABLET BY MOUTH EVERY DAY acetaminophen-codeine 300-30 mg tablet 1 tab PO DAILY Patient Comments: TAKE ONE TABLET BY MOUTH EVERY DAY MAY CAUSE DROWSINESS tramadol 50 mg tablet 50 mg PO Q4-6H Patient Comments: TAKE ONE TABLET BY MOUTH EVERY 4 TO 6 HOURS NEEDED FOR PAIN buspirone 10 mg tablet 10 mg PO DAILY Patient Comments: TAKE ONE TABLET BY MOUTH THREE TIMES DAILY dicyclomine 10 mg capsule 10 mg PO DAILY Patient Comments: TAKE ONE CAPSULE BY MOUTH FOUR TIMES DAILY NEEDED FOR ABDOMINAL PAIN Referrals Follow up/Referrals: Manjinder Mcgowan DO [Primary Care Provider] - See instructions Activity Restrictions/Add. Instructions Additional Instructions/Restrictions: *Monitor Temp, Over the counter Motrin or Tylenol as directed/as needed Tylenol every 4 hours and Motrin every 6 hours (as long as your family doctor has told you that you can take it) for fever or pain. and straight to ER if unable to lower temp less than 101.0 after medication given *Warm salt water gargles may help to soothe the throat *Throat Lozenges? *Warm fluids like tea with honey may help to soothe the throat? *Sleep elevated *Humidifier/Vaporizer Your throat swab was sent for culture. Those results are typically sent to your primary care. Be sure to follow up in 2-3 days with your family doctor/primary care physician if no improvement so they can review those result and treat if necessary. If you don?t have a primary care doctor, I recommend you get one but in the mean time, you will have to return to a walk in clinic Follow up IMMEDIATELY for new or worsening symptoms or no Noticeable improvement over the next 48-72 hours. 911 for difficulty breathing or swallowing Clinical Impressions Clinical Impression: Pharyngitis Instructions Patient Instructions: Sore Throat, DI for Sinusitis Print Language Print Language: Croatian Discharge ED Provider: Danelle Rao [facility] General Stated complaint: fever, sore throat Mode of Arrival: Ambulatory Source of Information: Patient Limitations: No Limitations Time Seen by Provider: 04/12/24 18:55 Description of Symptoms (Recalled from Triage Doc. by RN): PATIENT C/O COUGH, SORE THROAT AND CHEST CONGESTION X 2 DAYS HEENT Symptoms (Recalled from RN notes): Yes Resp Symptoms (Recalled from RN notes): Yes Skin Symptoms (Recalled from RN notes): No MS Symptoms (Recalled from RN notes): No Functional Status (Recalled from RN notes): WNL History of Present Illness Provider Complaint: Patient states that she has been having sore throat, sinus congestion, chest congestion and over all not feeling well for several days and for the last couple of days hurting when she would swallow Related Data Home Medications ?Medication ?Instructions ?Recorded ?Confirmed acetaminophen 300 mg-codeine 30 mg 1 tab PO DAILY 03/26/24 04/08/24 tablet atorvastatin 10 mg tablet 10 mg PO HS 03/26/24 04/08/24 buspirone 10 mg tablet 10 mg PO DAILY 03/26/24 04/08/24 dicyclomine 10 mg capsule 10 mg PO DAILY 03/26/24 04/08/24 spironolactone 100 mg tablet 100 mg PO DAILY 03/26/24 04/08/24 tramadol 50 mg tablet 50 mg PO Q4-6H 03/26/24 04/08/24 albuterol sulfate 0.63 mg/3 mL 0.63 mg inhalation Q6H 04/08/24 04/08/24 solution for nebulization bisoprolol fumarate 5 mg tablet 5 mg PO DAILY 04/08/24 04/08/24 bumetanide 2 mg tablet 2 mg PO DAILY 04/08/24 04/08/24 cariprazine 1.5 mg capsule 1.5 mg PO Q OTHER DAY 04/08/24 04/08/24 (Vraylar) clopidogrel 75 mg tablet (Plavix) 75 mg PO DAILY 04/08/24 04/08/24 escitalopram oxalate 20 mg tablet 20 mg PO DAILY 04/08/24 04/08/24 estradiol 0.01% (0.1 mg/gram) 1 appful vaginal DAILY 04/08/24 04/08/24 vaginal cream estradiol 1 mg tablet 1 mg PO DAILY 04/08/24 04/08/24 linaclotide 145 mcg capsule 145 mcg PO DAILY 04/08/24 04/08/24 methocarbamol 500 mg tablet 500 mg PO HS 04/08/24 04/08/24 methylcellulose (laxative) 2 g PO DAILY 04/08/24 04/08/24 pantoprazole 40 mg tablet,delayed 40 mg PO DAILY 04/08/24 04/08/24 release polyethylene glycol 3350 17 17 g PO DAILY 04/08/24 04/08/24 gram/dose oral powder (Miralax) prazosin 1 mg capsule 1 mg PO HS 04/08/24 04/08/24 tizanidine 4 mg capsule 4 mg PO HS PRN 04/08/24 04/08/24 trazodone 50 mg tablet 50 mg PO DAILY 04/08/24 04/08/24 Previous Rx's ?Medication ?Instructions ?Recorded azithromycin 250 mg tablet See Rx Instructions PO .COMPLEX 5 04/12/24 (Zithromax Z-Tesfaye) days #6 tabs Allergies Allergy/AdvReac Type Severity Reaction Status Date / Time No Known Allergies Allergy Verified 04/08/24 09:21 Worker's Comp Is this a Worker's Comp case?: No [facility] Disclaimer: The information contained in this section may have been updated after the patient was seen, as this information can be updated by other users. Medical History Enteritis Abnormal cardiovascular stress test Asthma COPD (chronic obstructive pulmonary disease) Hyperlipidemia Hyperlipidemia associated with type 2 diabetes mellitus Morbidly obese Coronary artery disease Typical angina Abnormal result of cardiovascular function study Tachycardia Diastolic dysfunction HTN (hypertension) Edema Dyspnea Chest pain BMI 36.0-36.9,adult Depression Surgical History History of hysterectomy Family History Other No significant family history Social History Smoking Status: Never smoker second hand exposure: No alcohol intake: never substance use type: denies use current occupational status: other Travel in the last 8 weeks: None household members: none housing: house current occupational exposures/hazards: No caffeine: Yes Have you lived/traveled outside US in past 30 days?: No Contact w/someone who lives/traveled outside US past 30 days?: No Exposure to someone with infectious disease in past 14 days?: No Do you have a fever (greater than 100.4 F or 38 C)?: Yes Have you tested positive for COVID-19: No Exposed to someone with COVID-19 in past 14 days?: No Do you have a sore throat?: Yes Do you have a cough?: No Do you have any weakness?: No Do you have any diarrhea?: No Are you experiencing any unusual bleeding?: No Do you have any muscle aches/pain?: No Do you have any abdominal pain?: No Are you experiencing loss of taste or smell?: No ROS Obtained: Yes All systems reviewed & no additional complaints except as documented and Yes Systems reviewed as appropriate & no additional complaints except as documented Constitutional Constitutional: Reports system reviewed and no additional complaints, except as documented and Reports as per HPI ENT Ears, Nose, Mouth, and Throat: Reports system reviewed and no additional complaints, except as documented, Reports as per HPI, Reports nasal congestion, Reports sinus pressure and Reports sore throat Cardiovascular Cardiovascular: Reports system reviewed and no additional complaints, except as documented and Reports as per HPI Respiratory Respiratory: Reports system reviewed and no additional complaints, except as documented, Reports as per HPI, Denies shortness of breath, Reports chest congestion and Reports cough Gastrointestinal Gastrointestingal: Reports system reviewed and no additional complaints, except as documented and as per HPI Physical Exam General General appearance: alert and in no apparent distress ENT ENT exam: Present mucous membranes moist Expanded ENT Exam Nose exam: Present sinus tenderness Throat exam: Present tonsillar erythema; Absent tonsillomegaly or tonsillar exudate Respiratory Respiratory exam: Present normal lung sounds bilaterally; Absent respiratory distress or wheezes Cardiovascular Cardiovascular exam: Present regular rate, normal rhythm and normal heart sounds Neurological Exam Neurological exam: Present alert, oriented X3 and normal gait Medical Decision Making Medical Records Screening: Per USPSTF and CDC recommendations, given the prevalence of disease in our region, it is our hospital?s policy to screen for HIV and viral Hepatitis for all patients aged 18 and over and those with ongoing risk factors. Alex Inquiry Pt receiving controlled substance: No Alex was queried for this patient: No Vital Signs: 04/12/24 18:35 Temperature 98.9 F Temperature Source Oral Pulse Rate [Left Brachial] 84 Respiratory Rate 17 Blood Pressure [Left Arm] 139/79 Blood Pressure Mean [Left Arm] 99 Blood Pressure Source [Left Arm] Automatic Cuff Blood Pressure Position [Left Arm] Sitting 02 Sat by Pulse Oximetry 97 Oxygen Delivery Method Room Air Lab Data Lab results reviewed: Yes I reviewed the patient's lab results. Medical Decision Narrative: Patient states that she has taken azithromycin before without complications or reactions
[2024-04-12 18:57] VITALS: BP 139/79; PULSE 84; RESP 17; TEMP 37.2; O2SAT 97
[2024-04-12 18:59] LABS: UTC Strep Screen (Rapid) Negative (Negative)
== END 2024-04-12 19:03 | disposition home or self-care (01) ==
PROVIDERS: Emergency Provider Nurse Practitioner; PCP Internal Medicine
DX: J02.9 Acute pharyngitis, unspecified (principal)
CPT/HCPCS: 87880; 99213; G0381

== ENCOUNTER 2024-05-04 09:52 | Outpatient (CLI) | payer MEDICARE, MEDICAID, SELFPAY ==
--- NOTE | 2024-05-04 | CA_ITS ---
APPROVED REPORT Exam: Pharmacologic Technologist: Magda Barrios Ht: 5 ft 0 in Wt: 221 lbs BSA: 1.95 m2 HR: 62 bpm BP: 159/78 mmHg Stress Test Details Test: Lexiscan HR Resting HR: 62 bpm Max Heart Rate (APMHR): 167.731409 bpm Max HR Achieved: 100 bpm Target HR (85% APMHR): 141.435603 bpm % of APMHR: 59.88 Recovery HR: 80 bpm BP Resting BP: 159.0/78.0 mmHg Max BP: 156.0/78.0 mmHg Recovery BP: 122.0/75.0 mmHg ECG Resting ECG: Sinus rhythm Stress ECG Conclusion Symptoms: Dyspnea Arrhythmias/Ectopy: - ST-T Changes: Less than [address] depression. Conclusion: EKG portion unremarkable due to Lexiscan infusion. Electronically signed by : Salina Pete MD 05/05/2024 11:10:42
--- NOTE | 2024-05-04 09:57 | CA_ITS ---
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50 cm/s Aortic Valve ANDRE Index 1.03 cm2/m2 AoV Peak Nicholas. 150.0 (50-130 cm/s) AO Peak GR. 9.00 mmHg AO Mean GR. 5.00 (<5 mmHg) AO VTI 32.4 (18-25 cm) ANDRE (VTI) 2.05 (2.5-4.5 cm2) Mitral Valve MV A Velocity 84.0 (40-130 cm/s) E/A Ratio 1.05 Pulmonary Valve NC End VMAX 132.0 cm/s Tricuspid Valve TR P. Velocity 221.00 cm/s RAP Estimate 10.00 mmHg RVSP 29.60 mmHg Left Ventricle The left ventricle is normal size. The left ventricular systolic function is normal. The left ventricular ejection fraction is within the normal range. There is normal left ventricular wall thickness. There is normal LV segmental wall motion. The left ventricular diastolic function is normal. LVEF is 55%. Right Ventricle The right ventricle is normal size. The right ventricular systolic function is normal. Atria The left atrium size is normal. The right atrium size is normal. There is no Doppler evidence of interatrial shunt. Aortic Valve The aortic valve opens well. There is no aortic valvular stenosis. No aortic regurgitation is present. Mitral Valve The mitral valve is normal in structure. No evidence of mitral valve stenosis. Trace mitral regurgitation. Tricuspid Valve Tricuspid valve is grossly normal in structure and function. Mild tricuspid regurgitation. RVSP is 20-25 mmHg. Pulmonic Valve The pulmonary valve is normal in structure. Trace pulmonic regurgitation. Great Vessels The aortic root is normal in size. IVC is normal in size and collapses >50% with inspiration. Pericardium There is no pericardial effusion. Other Information Study Quality: Fair Conclusion Normal biventricular systolic function. Mild TR. Electronically signed by : Salina Pete MD 05/10/2024 00:17:41
--- NOTE | 2024-05-04 10:06 | NM_ITS ---
APPROVED REPORT Exam: Nuclear Stress Test Indication: chest pain...soa Patient Location: Outpatient Stress Tech: Magda Barrios ELLE Tech:Margot GauthierJUAN MANUEL RT(R)(N) Ht: 4 ft 11 in Wt: 220 lbs Bra Size: 40b HR: 68 bpm BP: 159/78 mmHg BSA: 1.92 m2 TID: 1.18 BMI: 44.4 History: chest pain...soa Procedure: Patient received 0.4 mg of intravenous Lexiscan, resting heart rate 68 bpm, resting blood pressure 159/78 mmHg, with Lexiscan maximum heart rate achieved was 99 bpm which is 85 % of the maximum predicted heart rate and blood pressure was 156/78 mmHg. With Lexiscan, patient denied any complaint of chest pain. Cardiac Stress and Resting SPECT Images: Cardiac Stress and Resting SPECT images were obtained using technetium 99m Myoview 30.3 mCi stress and 10.67 mCi at rest. Resting and stress imaging in supine positions demonstrate no evidence of fixed or reversible perfusion defects. Gated imaging demonstrates normal global and regional LV systolic function. LVEF is calculated at 66%. Conclusion: No evidence of fixed or reversible perfusion defects. Gated imaging demonstrates normal global and regional LV systolic function. LVEF is calculated at 66%. Electronically signed by : Salina Pete MD 05/05/2024 11:03:58
[2024-05-04 10:41] LABS: Alanine Aminotransferase 33 U/L (12-78); Albumin Level 4.1 g/dl (3.5-5.0); Alkaline Phosphatase 76 U/L (38-126); Aspartate Amino Transferase 31 U/L (14-36); Bilirubin,Indirect 0.3 mg/dL (0.0-0.9); Bilirubin,Total 0.3 mg/dl (0.2-1.3); Bilirubin,Unconjugated 0.3 mg/dL (0.0-1.1); Blood Urea Nitrogen 14 mg/dl (7-17); Calcium 9.3 mg/dl (8.4-10.2); Carbon Dioxide 24 mmol/L (22.0-30.0); Chloride 109 mmol/L (98-107); Chol/HDL Ratio 2.9 (1-3.5); Cholesterol 147 mg/dl (140-200); Estimated Glomerular Filt Rate 65 ml/min (>60); GFR (African American) 79 ML/MIN (>60); Glucose 103 mg/dl (74-100); HDL Cholesterol 50 mg/dl (40-60); Magnesium 1.8 mg/dl (1.6-2.3); Sodium 140 mmol/L (136-145); Total Protein,Serum 6.4 g/dl (6.3-8.2); Triglycerides 221 mg/dl (30-150); VLDL Cholesterol 44 mg/dL (0-40)
[2024-05-04 10:43] LABS: Anion Gap 11.5 mEq/L (5-15); Potassium 4.5 mmoL/L (3.5-5.1)
[2024-05-04 10:45] LABS: Basophils # 0.1 K/mm3 (0-0.2); Basophils % 0.7 % (0.1-2.0); Eosinophils # 0.2 K/mm3 (0.0-0.4); Eosinophils % 2.2 % (0.1-12.0); Hematocrit 40.7 % (37.0-47.0); Hemoglobin 13.7 g/dL (12.2-16.2); Lymphocytes % 41.5 % (10-50); Mean Corpuscular HGB Conc 33.7 g/dL (31.8-35.4); Mean Corpuscular Hemoglobin 31.6 pg (27.0-31.2); Mean Corpuscular Volume 93.8 fl (81-99); Monocytes # 0.6 K/mm3 (0.1-1.0); Monocytes % 8.6 % (1.7-9.3); Neutrophils # 3.4 K/mm3 (1.8-7.8); Neutrophils % 46.7 % (37.0-80.0); Platelet Count 248 K/mm3 (142-424); Red Blood Count 4.34 M/mm3 (4.20-5.40); Red Cell Distribution Width 12.3 % (11.5-17.5); White Blood Count 7.3 K/mm3 (4.8-10.8)
[2024-05-04 10:52] LABS: Direct LDL Cholesterol 55.22 mg/dL (100-129)
[2024-05-04 10:57] LABS: Free T4 (Free Thyroxine) 0.82 ng/dl (0.78-2.19)
[2024-05-04 11:11] LABS: Thyroid Stimulating Hormone 1.62 uIU/mL (0.465-4.68)
[2024-05-04] MEDS: ISOTOPE MYOVIEW (PER STUDY) 1 DOSE IV (13:11)
[2024-05-04] MEDS: REGADENOSON 0.4MG/5ML SYRINGE 0.4 MG IV (13:11)
[2024-05-04] MEDS: SODIUM CHLORIDE 0.9% 10ML SYR (RAD ONLY) 10 ML IV ×2 (13:11)
== END 2024-05-04 23:59 | disposition home or self-care (01) ==
LOC: RT 09:52
PROVIDERS: PCP Internal Medicine; Visit Provider Nurse Practitioner
DX: I51.89 Other ill-defined heart diseases (principal); I25.10 Atherosclerotic heart disease of native coronary artery without angina pectoris; Z95.5 Presence of coronary angioplasty implant and graft; E78.2 Mixed hyperlipidemia
CPT/HCPCS: 36415; 78452; 80048; 80061; 80076; 83735; 84439; 84443; 85025; 93017; 93018; 93306; A9502; J2785

== ENCOUNTER 2024-05-20 08:24 | Day surgery (SDC) | payer MEDICARE, MEDICAID, SELFPAY ==
[2024-05-19 14:25] VITALS: BMI 44.9
[2024-05-20 08:43] VITALS: BP 146/78; PULSE 78; RESP 18; TEMP 36.7; O2SAT 96
[2024-05-20] MEDS: LACTATED RINGERS 1000ML 1,000 ML 50 ML IV (08:43)
--- NOTE | 2024-05-20 09:03 | EXP.ANES.CKL ---
[facility] Disclaimer: The information contained in this section may have been updated after the patient was seen, as this information can be updated by other users. Medical History Typical angina Enteritis Abnormal cardiovascular stress test Asthma COPD (chronic obstructive pulmonary disease) Hyperlipidemia Hyperlipidemia associated with type 2 diabetes mellitus Morbidly obese Coronary artery disease Abnormal result of cardiovascular function study Tachycardia Diastolic dysfunction HTN (hypertension) Edema Dyspnea Chest pain BMI 36.0-36.9,adult Depression Surgical History History of hysterectomy Family History Other No significant family history Social History Smoking Status: Never smoker second hand exposure: No alcohol intake: never substance use type: denies use current occupational status: disabled Travel in the last 8 weeks: None household members: none housing: house current occupational exposures/hazards: No caffeine: Yes Have you lived/traveled outside [place] in past 30 days?: No Contact w/someone who lives/traveled outside US past 30 days?: No Exposure to someone with infectious disease in past 14 days?: No Do you have a fever (greater than 100.4 F or 38 C)?: No Have you tested positive for COVID-19: No Exposed to someone with COVID-19 in past 14 days?: No Do you have a sore throat?: No Do you have a cough?: No Do you have any weakness?: No Do you have any diarrhea?: No Are you experiencing any unusual bleeding?: No Do you have any muscle aches/pain?: No Do you have any abdominal pain?: No Are you experiencing loss of taste or smell?: No [facility] Anesthesia Checklist Patient Identification Patient Identification: Arm Band Structural Data Admitted From: Home Planned Operative Procedure/s: Colonoscopy Consent for Planned Operative Procedure(s) Verified: Yes Verified Documents: Surgical Consent and History and Physical NPO Status Verified Time NPO: 06:15 (finished prep) Additional verifications Anesthesia Reactions: No Hx Blood Transfusions: No Blood Transfusion Reaction: No Airway Assessment Mallampati Score:: Class II C-Spine Mobility Assessed: Yes TMJ Mobility Assessed: Yes Neurological Assessment Level of Consciousness: Awake, Alert and Appropriate Anesthesia Plan Anesthesia Risk discussed: Yes Anesthesia Plan: Verified ASA Class: III Anesthesia Type: MAC
[2024-05-20 10:28] VITALS: O2SAT 99
--- NOTE | 2024-05-20 10:31 | EXP.HP ---
History of Present Illness *Admission Date: 05/20/24 *Reason for visit:: Change in bowel habits/constipation and right lower quadrant pain *History of present illness: Mrs. Sawyer is a 53-year-old female who is here for diagnostic colonoscopy secondary to change in bowel habits, nausea, bloating and constipation. She has had right lower quadrant abdominal pain. The examination is deemed medically necessary for diagnostic colonoscopy. The patient has been seen, interviewed and examined prior to the procedure by both myself and the anesthesia provider. [facility] Disclaimer: The information contained in this section may have been updated after the patient was seen, as this information can be updated by other users. Medical History Typical angina Enteritis Abnormal cardiovascular stress test Asthma COPD (chronic obstructive pulmonary disease) Hyperlipidemia Hyperlipidemia associated with type 2 diabetes mellitus Morbidly obese Coronary artery disease Abnormal result of cardiovascular function study Tachycardia Diastolic dysfunction HTN (hypertension) Edema Dyspnea Chest pain BMI 36.0-36.9,adult Depression Surgical History History of hysterectomy Family History Other No significant family history Social History Smoking Status: Never smoker second hand exposure: No alcohol intake: never substance use type: denies use current occupational status: disabled Travel in the last 8 weeks: None household members: none housing: house current occupational exposures/hazards: No caffeine: Yes Have you lived/traveled outside [place] in past 30 days?: No Contact w/someone who lives/traveled outside US past 30 days?: No Exposure to someone with infectious disease in past 14 days?: No Do you have a fever (greater than 100.4 F or 38 C)?: No Have you tested positive for COVID-19: No Exposed to someone with COVID-19 in past 14 days?: No Do you have a sore throat?: No Do you have a cough?: No Do you have any weakness?: No Do you have any diarrhea?: No Are you experiencing any unusual bleeding?: No Do you have any muscle aches/pain?: No Do you have any abdominal pain?: No Are you experiencing loss of taste or smell?: No Other Medical History Have you received the Flu Vaccine for this season: No Have you received the Pneumonia Vaccine: Yes Review of Systems Review of Systems Review of systems (narrative): Negative *Cardiovascular Comments: Negative *Gastrointestinal Comments: Negative *Genitourinary Comments: Negative *Musculoskeletal Comments: Negative *Neurologic Comments: Negative Meds Home Medications and Allergies Home Medications ?Medication ?Instructions ?Recorded ?Confirmed ?Type acetaminophen 300 mg-codeine 30 mg 1 tab PO DAILY 03/26/24 05/20/24 History tablet atorvastatin 10 mg tablet 10 mg PO HS 03/26/24 05/20/24 History buspirone 10 mg tablet 10 mg PO DAILY 03/26/24 05/20/24 History dicyclomine 10 mg capsule 10 mg PO DAILY 03/26/24 05/20/24 History tramadol 50 mg tablet 50 mg PO Q4-6H 03/26/24 05/20/24 History albuterol sulfate 0.63 mg/3 mL 0.63 mg inhalation Q6H 04/08/24 05/20/24 History solution for nebulization bisoprolol fumarate 5 mg tablet 5 mg PO DAILY 04/08/24 05/20/24 History bumetanide 2 mg tablet 2 mg PO DAILY 04/08/24 05/20/24 History cariprazine 1.5 mg capsule 1.5 mg PO Q OTHER DAY 04/08/24 05/20/24 History (Vraylar) escitalopram oxalate 20 mg tablet 20 mg PO DAILY 04/08/24 05/20/24 History estradiol 0.01% (0.1 mg/gram) 1 appful vaginal DAILY 04/08/24 05/20/24 History vaginal cream estradiol 1 mg tablet 1 mg PO DAILY 04/08/24 05/20/24 History linaclotide 145 mcg capsule 145 mcg PO DAILY 04/08/24 05/20/24 History methocarbamol 500 mg tablet 500 mg PO HS 04/08/24 05/20/24 History methylcellulose (laxative) 2 g PO DAILY 04/08/24 05/20/24 History pantoprazole 40 mg tablet,delayed 40 mg PO DAILY 04/08/24 05/20/24 History release polyethylene glycol 3350 17 17 g PO DAILY 04/08/24 05/20/24 History gram/dose oral powder (Miralax) prazosin 1 mg capsule 1 mg PO HS 04/08/24 05/20/24 History tizanidine 4 mg capsule 4 mg PO HS PRN , 04/08/24 05/20/24 History trazodone 50 mg tablet 50 mg PO DAILY 04/08/24 05/20/24 History spironolactone 100 mg tablet See Rx Instructions .Route 05/06/24 05/20/24 Rx .COMPLEX #90 tabs sodium,potassium,mag sulfates 17.5 See Rx Instructions PO .COMPLEX 05/07/24 05/20/24 Rx gram-3.13 gram-1.6 gram oral soln #354 mL (Suprep Bowel Prep Kit) New Prescriptions to Start Prescriptions: Allergies Allergy/AdvReac Type Severity Reaction Status Date / Time No Known Allergies Allergy Verified 05/20/24 08:41 Exam Data for Last 24 hours Vital signs and Labs for Last 24 Hours: Temp Pulse Resp BP Pulse Ox O2 Del Method 98.1 F 78 18 146/78 H 96 Room Air 05/20/24 08:43 05/20/24 08:43 05/20/24 08:43 05/20/24 08:43 05/20/24 08:43 05/20/24 08:43 I & O for Last 24 hours: Intake & Output 05/17/24 05/18/24 05/19/24 05/20/24 23:59 23:59 23:59 23:59 Weight 230 lb *Routine HEENT Exam Head: Present normocephalic Eye: Present EOMI and PERRL ENT: Present mucous membranes moist *Routine Neck Exam Neck: Present supple *Routine Respiratory Exam Respiratory: Present CTA bilaterally *Routine Cardiovascular Exam Cardiovascular: Present RRR *Routine Abdominal Exam Abdominal: Present soft and normoactive bowel sounds; Absent tenderness *Routine Rectal Exam Rectal:: deferred *Routine Genitalia Exam Genitalia:: deferred *Routine Extremities Exam Extremities: Absent cyanosis, clubbing or edema *Routine Skin Exam Skin: Present warm; Absent rash *Routine Neurological Exam Neurological: Present alert and oriented X3 Assessment and Plan *Assessment and plan (1) Change in bowel habits: Status: Acute Category: Medical Code(s): R19.4 - Change in bowel habit (2) Bloating: Status: Acute Category: Medical Code(s): R14.0 - Abdominal distension (gaseous) (3) RLQ abdominal pain: Status: Acute Category: Medical Code(s): R10.31 - Right lower quadrant pain Plan A/P: 1. Change in bowel habits with right lower quadrant abdominal pain and bloating is the preprocedural diagnosis. The patient will be anesthetized/sedated using MAC sedation. The patient has been seen and examined. Cardiac and lung assessment prior to the examination is stable. Proceed with planned diagnostic colonoscopy
--- NOTE | 2024-05-20 10:33 | P.PCN_ITS ---
[facility] Procedure Note Date: 05/20/24 Time: 10:47 Procedure Note:: Colonoscopy Procedure Report: Colonoscopy with cold snare polypectomy Endoscopist: Bebo Ghosh II, MD Referring physician: Manjinder Mcgowan DO Date of Procedure: May 20, 2024 Equipment: Olympus 190 variable stiffness pediatric colonoscope Sedation: MAC sedation Indication: Mrs. Sawyer is a 53-year-old female who has struggled with digestive difficulties. She has had some change in bowel habits. She does report bowel irregularity with constipation alternating with diarrhea. She gets bloating, gassiness, belching and right lower quadrant abdominal pain. She does get some regurgitation and vomiting with her belching. Her mother had colon cancer at the age of 70. She has been on tramadol. Mary Stump [employer] and placed her on MiraLAX and Metamucil twice daily and added dicyclomine. She still having symp toms. Her last colonoscopy was 3 years ago. The patient reports no rectal bleeding or mucus with her bowel movements. She has had no unintentional weight loss. Procedure: Prior to the procedure, a history and physical exam was performed, and patient's medications and allergies were reviewed. The risks, benefits and alternatives of the sedation and procedure were discussed with the patient. All questions were answered and informed consent was obtained. The patient was brought to the procedure room. Patient identification and proposed procedure were verified by the physician and the nurse. The patient was placed in a left lateral decubitus position and the scope was passed under direct vision. Throughout the procedure, the patient's blood pressure, pulse, and oxygen saturations were monitored continuously. The colonoscopy was accomplished without difficulty. The patient tolerated the procedure well. Findings: On digital rectal examination there was normal rectal tone. There were no external hemorrhoids. The colonoscope was introduced through the anal canal to the rectum and advanced to the cecum. The ileocecal valve and appendiceal orifice were identified. The scope was advanced a short distance into the ileum which appeared grossly normal. The scope was then withdrawn into the colon. The cecum, ascending, transverse, descending, sigmoid and rectum were grossly norm al. There was a single 3 to 4 mm hyperplastic appearing polyp in the rectum removed via cold snare polypectomy. There were no other mucosal abnormalities. Upon retroflexion within the rectum there were grade 1-2 internal hemorrhoids. The preparation was excellent throughout with [place] Preparation Score of 9. The cecal time was 12 minutes. Impression: 1. Diminutive 3 to 4 mm hyperplastic appearing rectal polyp?otherwise normal colonoscopy with intubation of the terminal ileum Plan: I will follow-up the polyp histology and if the polyp is hyperplastic, we will discuss surveillance interval possibly to 10 years. Those persons that constitute having a stronger family history of colorectal cancer are those with a first-degree relative (parent, sibling, or child) diagnosed with colon cancer when they were younger than 50, or if more than one first-degree relative is affected. It is in these persons, that we recommend surveillance colonoscopy every 5 years. Persons that have a first-degree family member greater than 60 years of age at the time of their diagnosis are not deemed to be at greater risk because most colon cancers are sporadic (environmental and other factors) and are not hereditary. Only about 5 to 10 percent of colon cancer is hereditary. I do feel that the patient has mixed IBS with functional abdominal pain. We will discuss treatment options including low FODMAP diet. I would consider prucalopride and possibly neuromodulation treatment.
[2024-05-20 10:53] VITALS: BP 108/75; PULSE 72; RESP 16; TEMP 36.6; O2SAT 93
[2024-05-20 11:03] VITALS: BP 112/70; PULSE 69; RESP 16; O2SAT 97
[2024-05-20 11:13] VITALS: BP 126/72; PULSE 65; RESP 16; O2SAT 95
[2024-05-20 11:21] VITALS: BP 132/78; PULSE 70; RESP 16; O2SAT 96
== END 2024-05-20 11:27 | disposition home or self-care (01) ==
PROVIDERS: PCP Internal Medicine; Visit Provider Internal Medicine Gastroenterology
PROC: 0DJD8ZZ Inspection of Lower Intestinal Tract, Via Natural or Artificial Opening Endoscopic (ICD-10-PCS; CPT 45378; principal; 2024-05-20 10:00)
DX: R19.4 Change in bowel habit (principal); R14.0 Abdominal distension (gaseous); R10.31 Right lower quadrant pain; R10.9 Unspecified abdominal pain; R19.7 Diarrhea, unspecified; Z80.0 Family history of malignant neoplasm of digestive organs; K63.5 Polyp of colon; K64.8 Other hemorrhoids
CPT/HCPCS: 45385; J7120

== ENCOUNTER 2024-05-26 08:41 | Outpatient (POV) | payer MEDICARE, MEDICAID, SELFPAY ==
--- NOTE | 2024-05-26 08:44 | EXP.PAIN.SOA ---
[facility] Disclaimer: The information contained in this section may have been updated after the patient was seen, as this information can be updated by other users. Medical History (Updated 05/20/24 @ 11:38 by Bebo Ghosh II, MD) Typical angina Enteritis Abnormal cardiovascular stress test Asthma COPD (chronic obstructive pulmonary disease) Hyperlipidemia Hyperlipidemia associated with type 2 diabetes mellitus Morbidly obese Coronary artery disease Abnormal result of cardiovascular function study Tachycardia Diastolic dysfunction HTN (hypertension) Edema Dyspnea Chest pain BMI 36.0-36.9,adult Depression Surgical History History of hysterectomy Family History Other No significant family history Social History Smoking Status: Never smoker second hand exposure: No alcohol intake: never substance use type: denies use current occupational status: disabled Travel in the last 8 weeks: None household members: none housing: house current occupational exposures/hazards: No caffeine: Yes PM Subjective & Objective Subjective Subjective:: Patient is a pleasant 53-year-old female who presents today for medication refill and follow-up. Today she rates her pain a 8 out of 10. Patient does state that she has had a fall from her last visit. She states that her legs just will randomly give out. She also states she continues to have a catching sensation in her low back. Patient does state that when this occurs it takes days for her to really get back to her regular routine. Patient describes her pain as an aching, throbbing sensation with numbness and tingling into her legs. She did have a lumbar epidural at L5-S1 back in December that did provide 80% relief. She does feel like this injection has worn off however would like to try and get in for repeat injection. She states the pain currently is interfering with her ability perform activities of daily living such as cooking and cleaning. Patient is currently managed with tizanidine 4 mg at bedtime, methocarbamol 500 mg twice a day and Tylenol 3 daily. She denies any side effects from this medication. She is requesting refills. Her Alex has been reviewed and is appropriate. Review of Systems: General: No recent weight changes, no fever, no sleep disturbances Respiratory: No cough, no shortness of air, no recurring pulmonary infections Cardiovascular/peripheral vascular: No chest pain, no palpitations, no edema, no shortness of breath Gastrointestinal: No new onset incontinence, normal bowel movements reported Genitourinary: No new onset incontinence Musculoskeletal: Low back pain, bilateral leg pain Psychiatric: [Normal mood/affect] Neurological: [Denies weakness in extremities], [denies balance issues] Pain at rest (0-10 scale): 8 Objective Objective:: Physical Exam: General: Alert and oriented x3, no acute distress, pleasant and cooperative Lungs: Respirations even and unlabored, symmetrical chest expansion Eyes: PERRL Musculoskeletal: Flexion and extension of lumbar [spine] somewhat guarded secondary to pain, [antalgic gait noted] positive leg raise Neurological: Speech clear, no gross sensory deficit Has patient had previous pain injection?: No Conservative treatment options previously tried: Home exercise plan Length of treatment: Longer than 12 weeks Meds Home Medications and Allergies Home Medications ?Medication ?Instructions ?Recorded ?Confirmed ?Type acetaminophen 300 mg-codeine 30 mg 1 tab PO DAILY 03/26/24 05/20/24 History tablet atorvastatin 10 mg tablet 10 mg PO HS 03/26/24 05/20/24 History buspirone 10 mg tablet 10 mg PO DAILY 03/26/24 05/20/24 History dicyclomine 10 mg capsule 10 mg PO DAILY 03/26/24 05/20/24 History tramadol 50 mg tablet 50 mg PO Q4-6H 03/26/24 05/20/24 History albuterol sulfate 0.63 mg/3 mL 0.63 mg inhalation Q6H 04/08/24 05/20/24 History solution for nebulization bisoprolol fumarate 5 mg tablet 5 mg PO DAILY 04/08/24 05/20/24 History bumetanide 2 mg tablet 2 mg PO DAILY 04/08/24 05/20/24 History cariprazine 1.5 mg capsule 1.5 mg PO Q OTHER DAY 04/08/24 05/20/24 History (Tali) escitalopram oxalate 20 mg tablet 20 mg PO DAILY 04/08/24 05/20/24 History estradiol 0.01% (0.1 mg/gram) 1 appful vaginal DAILY 04/08/24 05/20/24 History vaginal cream estradiol 1 mg tablet 1 mg PO DAILY 04/08/24 05/20/24 History linaclotide 145 mcg capsule 145 mcg PO DAILY 04/08/24 05/20/24 History methocarbamol 500 mg tablet 500 mg PO HS 04/08/24 05/20/24 History methylcellulose (laxative) 2 g PO DAILY 04/08/24 05/20/24 History pantoprazole 40 mg tablet,delayed 40 mg PO DAILY 04/08/24 05/20/24 History release polyethylene glycol 3350 17 17 g PO DAILY 04/08/24 05/20/24 History gram/dose oral powder (Miralax) prazosin 1 mg capsule 1 mg PO HS 04/08/24 05/20/24 History tizanidine 4 mg capsule 4 mg PO HS PRN , 04/08/24 05/20/24 History trazodone 50 mg tablet 50 mg PO DAILY 04/08/24 05/20/24 History spironolactone 100 mg tablet See Rx Instructions .Route 05/06/24 05/20/24 Rx .COMPLEX #90 tabs sodium,potassium,mag sulfates 17.5 See Rx Instructions PO .COMPLEX 05/07/24 05/20/24 Rx gram-3.13 gram-1.6 gram oral soln #354 mL (Suprep Bowel Prep Kit) buspirone 10 mg tablet 20 mg (2 x 10 mg) PO BID #120 tabs 05/20/24 Rx New Prescriptions to Start Prescriptions: Allergies Allergy/AdvReac Type Severity Reaction Status Date / Time No Known Allergies Allergy Verified 05/20/24 08:41 Assessment and Plan *Assessment and plan (1) Lumbar radiculopathy: Status: Acute Category: Medical Code(s): M54.16 - Radiculopathy, lumbar region (2) Degenerative disc disease, lumbar: Status: Acute Qualifiers: Disc-related pain type: discogenic back pain and lower extremity pain Qualified Code(s): M51.362 - Other intervertebral disc degeneration, lumbar region with discogenic back pain and lower extremity pain Category: Medical Code(s): M51.369 - Other intervertebral disc degeneration, lumbar region without mention of lumbar back pain or lower extremity pain (3) Cervical spinal stenosis: Status: Acute Category: Medical Code(s): M48.02 - Spinal stenosis, cervical region (4) Cervical radiculopathy: Status: Acute Category: Medical Code(s): M54.12 - Radiculopathy, cervical region (5) Degenerative disc disease, cervical: Status: Acute Category: Medical Code(s): M50.30 - Other cervical disc degeneration, unspecified cervical region Plan I will refill her Tylenol 3, methocarbamol and tizanidine and provide a 3-month supply of this medication. Patient is experiencing worsening pain in her low back with numbness and tingling into her lower extremities. Patient did have limited range of motion of her lumbar spine with a positive leg raise. I did discuss with patient that I do believe they would benefit from a lumbar epidural steroid injection. Risk and benefits were discussed with patient and the patient would like to proceed forward with this plan of care. Patient is not on any blood thinners. Patient has tried and failed conservative therapy including continued at home stretching exercise for longer than 12 weeks between injections. Patient did previously have a lumbar epidural back in December that provided 80% relief and lasted longer than 3 months. We will schedule the patient for an LESI L5-S1 under fluoroscopy. I did also review with the patient due to her chronic back pain that she may be a beneficial candidate of an intrathecal pain pump trial in the future. Risk and benefits and educational handouts were given at today's visit. We will follow-up with this at future visits. Patient has been instructed to contact the clinic with any concerns before the next appointment. Dr. Kirk has reviewed this note and agrees with this plan of care. This note was dictated using voice recognition software and make contain errors or omissions. All injections are used with Lidocaine, Bupivacaine and Depo Medrol. Occasionally urine drug screen is needed to verify patient's compliance with our office pain contract. This is ordered based off specific treatments related to chronic pain with the potential to abuse certain medications. Risks and benefits of the medication have been explained in detail to the patient. The patient does understand the risk of dependence on the medication when given over a prolonged period. Patient has been advised of risks of oversedation with the prescribed medication. Narcan has been offered to the paitent in the event of oversedation. Patient has been advised that a family member should also be educated regarding administration of Narcan. The patient has been advised to consult with his/her primary care provider and pharmacist regarding drug-drug interaction of medications currently prescribed. Patient has been prescribed a controlled substance after being counseled on the medication, medication safety, and possible side effects. Opioid contract was reviewed and signed by the patient, and that they have agreed to all of the terms set forth by our compliance program. A UDS is needed to verify patient's compliance with our office pain contract. This is ordered based off specific treatments related to chronic pain with the potential to abuse certain medications. Patient has been instructed to contact the clinic with any concerns before the next appointment. Dr. Kirk has reviewed this note and agrees with this plan of care. This note was dictated using voice recognition software and make contain errors or omissions.
[2024-05-26 09:32] VITALS: BP 122/73; PULSE 79; RESP 16; O2SAT 96; BMI 44.9
== END 2024-05-26 23:59 | disposition home or self-care (01) ==
PROVIDERS: PCP Internal Medicine; Visit Provider Nurse Practitioner Family
DX: M51.16 Intervertebral disc disorders with radiculopathy, lumbar region (principal); M48.02 Spinal stenosis, cervical region; M50.10 Cervical disc disorder with radiculopathy, unspecified cervical region; Z73.89 Other problems related to life management difficulty; Z79.899 Other long term (current) drug therapy
CPT/HCPCS: 99212; G0463

== ENCOUNTER 2024-07-13 08:19 | Day surgery (SDC) | payer MEDICARE, MEDICAID, SELFPAY ==
[2024-07-13 08:33] VITALS: BP 119/83; PULSE 73; RESP 16; TEMP 36.8; O2SAT 95; BMI 46.4
[2024-07-13] MEDS: methylPREDNISolone ACETATE 80MG/ML VIAL 80 MG (09:17)
[2024-07-13 09:18] VITALS: BP 127/54; PULSE 87; RESP 18; O2SAT 97
[2024-07-13 09:21] VITALS: BP 137/83; PULSE 72; RESP 16; O2SAT 96
[2024-07-13 09:23] VITALS: BP 127/54; PULSE 87; RESP 18; O2SAT 97
--- NOTE | 2024-07-13 09:36 | EXP.PAIN.PRO ---
Procedure Date: 07/13/24 Time: 09:15 Anesthesiologist:: Smith Segura CRNA Complications:: None Pre-procedure Diagnosis:: Degenerative disc lumbar spine multilevels. Lumbar radiculopathy. Post-procedure Diagnosis:: Same. Indications for Procedure:: Patient is a very pleasant 53-year-old female who comes our clinic today for a lumbar epidural steroid injection. Patient describes low lumbar back pain. Bilateral leg radiculopathy. She rates her pain 7/10. Procedure Details:: Procedure: Lumbar epidural steroid injection under fluoroscopy Informed consent was obtained and the risks and benefits of the procedure were explained to the patient. The patient was taken to the procedure room and noninvasive monitors placed, including noninvasive blood pressure cuff and pulse oximeter. The back was viewed using C-arm Fluoroscopy and prepped using Chloraprep as a cleansing solution and the L4-L5 interspace was palpated. Skin and subcutaneous tissues were anesthetized using lidocaine 1.5% and a 25-gauge needle. After this, an 18-gauge Touhy epidural needle was placed into the L4-L5 interspace and advanced using fluoroscopic guidance and loss of resistance to air until the epidural space was encountered. After confirmation of needle placement in the epidural space, with dye, a solution containing normal saline, 3 mL and Depo-Medrol 80 mg were incrementally injected into the lumbar epidural space. The patient tolerated the procedure well with no complications. The patient was observed in the Pain Clinic and then discharged home neurologically intact. Plan and Disposition:: Patient was discharged without incident.
== END 2024-07-13 09:21 | disposition home or self-care (01) ==
LOC: SC.PAINP 08:21
PROVIDERS: PCP Internal Medicine; Visit Provider Nurse Anesthetist, Certified Registered
DX: M51.16 Intervertebral disc disorders with radiculopathy, lumbar region (principal)
CPT/HCPCS: 62323; J1010

== ENCOUNTER 2024-07-26 09:06 | Outpatient (POV) | payer MEDICARE, MEDICAID, SELFPAY ==
--- OUTSIDE RECORDS SUMMARY | 2024-07-26 09:09 | XMS_ITS | Clinical Summary ---
Author Organization [facility] [[email or web address] , [facility] Address [address] [place] [address] Phone Care Team Providers Care Electrical Appliance Mechanic Name Role Phone Maira MARTINEZ, Arben Plummer Primary Care Provider [phone] Venkata MARTINEZ, Evan Young Unavailable [phone] Sonido Ervin MD Unavailable [phone] Reason for Visit and Chief Complaint The Chief Complaint is: low back pain Problems Includes: Problems addressed during this encounter and other active Problems Current Visit Onset Date Resolved Date Provider Conditio n Status Lower Back Pain 06/24/2018 Evan Hastings MD Act sridhar Last Documented On 9 1:54PM ; [facility], [facility] Past Visits Onset Date Resolved Date Provider Condition Status Joint Pain, Localized in the Hip 08/12/2017 Evan Hastings MD Active Last Documented On 8 3:56PM ; [facility], [facility] Plan of Treatment Instructions to patient Instructions for patient See PCP for Weight Loss Last Documented On 0 3:18PM ; [facility], [facility] Assessments Includes: Assessments from this encounter No Assessments Recorded Instructions Includes: Instructions from this encounter Instructions to patient Instructions for patient See PCP for Weight Loss Last Documented On 0 3:18PM ; [facility], [facility] Medical Equipment - Implanted Devices Includes: Current Devices No Medical Equipment Recorded Medications Includes: Medications discussed during this encounter and other current Medications Current Medications (continue as prescribed) Estradiol 1 MG Oral Tablet 01/22/2019 Provider: Diagnosis: Last Documented On 9 11:36AM By Sharon Sanchez ; [facility] buPROPion HCl ER (SR) 150 MG Oral Tablet Extended Release 12 Hour 01/19/2019 Provider: Diagnosis: Last Documented On 9 11:36AM By Sharon Sanchez ; [facility] Adult Aspirin EC Low Strengt h 81 MG Oral Tablet Delayed Release 12/21/2018 Provider: Diagnosis: Last Documented On 9 9:55AM By Sharon Sanchez ; [facility] Cetirizine HCl 10 MG Oral Capsule 12/18/2018 Provide r: Diagnosis: Last Documented On 9 9:54AM By Sharon Daniel ; [facility] Fluzone Quadrivalent 9 MCG/S TRAIN Intradermal Suspension Pen-injector 12/08/2018 Provider: Diagnosis: Last Documented On 9 9:54AM By Sharon Sanchez ; [facility] PARoxetine HCl 10 MG Oral Tablet 12/08/2018 Provider : Diagnosis: Last Documented On 9 9:55AM By Sharon Sanchez ; [facility] Bisoprolol Fumarate 5 MG Oral Tablet 12/04/2018 Prov ider: Diagnosis: Last Documented On 9 9:54AM By Sharon Daniel ; [facility] Drospirenone-Estradiol 0.5-1 MG Oral Tablet 11/29/2018 Provider: Diagnosis: Last Documented On 9 9:53AM By Sharon Sanchez ; [facility] Spironolactone 100MG Oral Tablet 06/24/2018 Provider : Diagnosis: Last Documented On 9 2:26PM By Dian Suárez ; [facility] Torsemide 100MG Oral Tablet 06/24/2018 Provider: Diagnosis: Last Documented On 9 2:27PM By Dian Suárez ; [facility] Past Medications on file [place] 5-325 MG Oral Tablet 06/18/2019 - 07/18/2019 Pro vider: Krystian Brooks MD Diagnosis: 1 tab every 12 hours Last Documented On 0 1:56PM By Anuel Casper ; [facility] Medications Administered Includes: Administered Medications from this encounter No Administered Medications Recorded Vital Signs Includes: Vital Signs from this encounter Vital Name 05/31/2019 03:17P Blood Pressure Sitting (mmHg) 125/79 Pulse Rate-Sitting (bpm) 78 Height (in) 60 Weight (lb) 190 Body Mass Index (kg/m2) 37.1 Body Surface Area (m2) 1.8 Last Documented: On 05/31/2019 3:38PM ; [facility], [facility] Results Includes: Results discussed during this [...] 06/24/2018 Last Documented On 0 3:16PM ; [facility] No recent change in diet 08/12/2017 Last Documented On 0 3:16PM ; [facility], [facility] Not a current smoker 08/12/2017 Last Documented On 0 3:16PM ; [facility], [facility] Not exercising regularly 08/12/2017 Last Documented On 0 3:16PM ; [facility], [facility] Not using alcohol 08/12/2017 Last Documented On 0 3:16PM ; [facility], [facility] Not using drugs 08/12/2017 Last Documented On 0 3:16PM ; [facility], [facility] No tobacco use 08/12/2017 Last Documented On 0 3:16PM ; [facility] Smoking status : Never smoker 08/12/2017 Last Documented On 0 3:16PM ; [facility], [facility] Procedures and Surgical History Includes: Procedures from this encounter Procedures Code Diagnosis Performing Provider Service L ocation Service Date Clinical summary provided to patient Last Documented On 0 3:16PM ; [facility], [facility] Surgical History Last Updated History of hysterectomy 08/12/2017 Last Documented On 0 3:16PM ; [facility], [facility] Medical History Includes: Medical History addressed during this encounter Description Last Updated Gallbladder disease 06/24/2018 Last Documented On 0 3:16PM ; [facility], [facility] Intermittent hypertension 08/12/2017 Last Documented On 0 3:16PM ; [facility] Family History Includes: Family History addressed during this encounter Description Last Updated Family history of hypertension 9 Last Documented On 0 3:16PM ; [facility] No significant family history 08/12/2017 Last Documented On 0 3:16PM ; [facility] Review of Systems Includes: Review of [...] Time Diagnosis Follow Up Evan Hastings MD [facility] 0 2:35PM 4:00PM Insurance Includes: Active Insurance Policies Plan Name Member ID Group # Subscriber Relationship Effect sridhar Dates 1 - Aetna [facility] [id number] Jessica Navarrete braeden Self 12/31 - Unknown 2 - [employer]HEMI [id number] Jessica Sawyer Self 07/2018 - Unknown Clinical Notes Includes: Clinical Notes from this encounter No Clinical Notes Recorded
--- OUTSIDE RECORDS SUMMARY | 2024-07-26 09:09 | XMS_ITS | Clinical Summary ---
Author Organization [facility] , [facility] Address [address] [place] [address] Phone Care Team Providers Care Solutions Executive Security Name Role Phone Maira MARTINEZ, Arben Plummer [...] sridhar Last Documented On 9 1:54PM ; [facility] Joint Pain, Localized in the Hip 08/12/2017 Bryce Hastings MD Active Last Documented On 8 3:56PM ; [facility] Plan of Treatment No Plan of Treatment Recorded Assessments Includes: Assessments from this encounter No Assessments Recorded Medical Equipment - Implanted Devices Includes: Current Devices No Medical Equipment Recorded Medications Includes: Medications discussed during this encounter and other current Medications Current Medications (continue as prescribed) Estradiol 1 MG Oral Tablet 01/22/2019 Provider: Diagnosis: Last Documented On 9 11:36AM By Sharon Gabriel [facility] buPROPion HCl ER (SR) 150 MG Oral Tablet Extended Release 12 Hour 01/19/2019 Provider: Diagnosis: Last Documented On 9 11:36AM By Sharon Gabriel [facility] Adult Aspirin EC Low Strengt h 81 MG Oral Tablet Delayed Release 12/21/2018 Provider: Diagnosis: Last Documented On 9 9:55AM By Sharon Daniel ; [facility] Cetirizine HCl 10 MG Oral Capsule 12/18/2018 Provide r: Diagnosis: Last Documented On 9 9:54AM By Sharon Daniel ; [facility], [facility] Fluzone Quadrivalent 9 MCG/S TRAIN Intradermal Suspension Pen-injector 12/08/2018 Provider: Diagnosis: Last Documented On 9 9:54AM By Sharon Sanchez ; [facility] PARoxetine HCl 10 MG Oral Tablet 12/08/2018 Provider : Diagnosis: Last Documented On 9 9:55AM By Sharon Daniel ; [facility] Bisoprolol Fumarate 5 MG Oral Tablet 12/04/2018 Prov ider: Diagnosis: Last Documented On 9 9:54AM By June Daniel ; [facility], [facility] Drospirenone-Estradiol 0.5-1 MG Oral Tablet 11/29/2018 Provider: Diagnosis: Last Documented On 9 9:53AM By Sharon Sanchez ; [facility] Spironolactone 100MG Oral Tablet 06/24/2018 Provider : Diagnosis: Last Documented On 9 2:26PM By Dian Suárez ; [facility], [facility] Torsemide 100MG Oral Tablet 06/24/2018 Provider: Diagnosis: Last Documented On 9 2:27PM By Dian Suárez ; [facility], [facility] Medications Administered Includes: Administered Medications [...] Check-Out Time Diagnosis Epidural Steroid Injection Americo Lockstadt MD [facility] 02/13/20 19 10:17AM 10:28AM Insurance Includes: Active Insurance Policies Plan Name Member ID Group # Subscriber Relationship Effect sridhar Dates 1 - Aetna [facility] [id number] Jessica Sawyer Self 12/31 - Unknown 2 - [employer]MI [id number] Jessica Sawyer Self 07/2018 - Unknown Clinical Notes Includes: Clinical Notes from this encounter No Clinical Notes Recorded
--- OUTSIDE RECORDS SUMMARY | 2024-07-26 09:09 | XMS_ITS ---
Care Plan - [facility], [facility] Created on: July 26, 2024 SilverioJessicaKimmy : 1970 Sex: Female Author Organization [facility], [facility] Address [address] [place] [address] Phone Care Team Providers Care Belt Tender Name Role Phone Maira MARTINEZ, Arben Plummer Primary Care Provider [phone] Evan Hastings MD Unavailable [phone] Aziza MARTINEZ, Sonido Unavailable [phone]
--- OUTSIDE RECORDS SUMMARY | 2024-07-26 09:09 | XMS_ITS | Clinical Summary ---
Author Organization [facility] , [facility] Address [address] [place] [address] Phone Care Team Providers Care Tag Stringer Name Role Phone Maira MARTINEZ, Arben Plummer [...] sridhar Last Documented On 9 1:54PM ; [facility] Past Visits Onset Date Resolved Date Provider Condition Status Joint Pain, Localized in the Hip 08/12/2017 Evan Hastings MD Active Last Documented On 8 3:56PM ; [facility] Plan of Treatment Urine drug screen is [...] L4-5 selective nerve block 2 weeks. Start [place] 5 mg every 12 hours. She will need a left sacroiliac joint injection as well. Dr. Hastings did not recommend lumbar surgery this time instead recommended spinal cord stimulator trial. If injectable therapy fails she will be candidate for spinal cord stimulator trial. She may need diagnostic medial branch block bilateral L3-4-5 levels. - Last Documented On 06/18/2019 2:30PM ; [facility] Instructions to patient Instructions for patient See PCP for Weight Loss Last Documented On 0 1:17PM ; [facility], [facility] Assessments Includes: Assessments from this encounter Findings Chronic low back pain with left radicular pain in L4-5 distribution with tingling and numbness. Bilateral lumbar facet joint arthritis at L3-4-5 levels. Left hip joint tendinitis and pain. - Last Documented On 06/18/2019 2:30PM ; [facility], [facility] Instructions Includes: Instructions from this encounter Instructions to patient Instructions for patient See PCP for Weight Loss Last Documented On 0 1:17PM ; [facility] Medical Equipment - Implanted Devices Includes: Current Devices No Medical Equipment Recorded Medications Includes: Medications discussed during this encounter and other current Medications New / Renewed during this visit Krystian Brooks MD on 06/18/2019 [place] 5-325 MG Oral Tablet Provider: Ba Brooks MD 30 day supply: 60 tablet, 0 refills Diagnosis: 1 tab every 12 hours Pharmacy: [id number] - [id number], [id number] - Last Documented On 0 1:56PM By Anuel [facility], [facility] Current Medications (continue as prescribed) Estradiol 1 MG Oral Tablet 01/22/2019 Provider: Diagnosis: Last Documented On 9 11:36AM By Sharon [facility] buPROPion HCl ER (SR) 150 MG Oral Tablet Extended Release 12 Hour 01/19/2019 Provider: Diagnosis: Last Documented On 9 11:36AM By Sharon [facility], [facility] Adult Aspirin EC Low Strengt h 81 MG Oral Tablet Delayed Release 12/21/2018 Provider: Diagnosis: Last Documented On 9 9:55AM By Sharon Sanchez ; [facility], [facility] Cetirizine HCl 10 MG Oral Capsule 12/18/2018 Provide r: Diagnosis: Last Documented On 9 9:54AM By Sharon Daniel ; [facility], [facility] Fluzone Quadrivalent 9 MCG/S TRAIN Intradermal Suspension Pen-injector 12/08/2018 Provider: Diagnosis: Last Documented On 9 9:54AM By Sharon Sanchez ; [facility], [facility] PARoxetine HCl 10 MG Oral Tablet 12/08/2018 Provider : Diagnosis: Last Documented On 9 9:55AM By Sharon Daniel ; [facility], [facility] Bisoprolol Fumarate 5 MG Oral Tablet 12/04/2018 Prov ider: Diagnosis: Last Documented On 9 9:54AM By June Daniel ; [facility], [facility] Drospirenone-Estradiol 0.5-1 MG Oral Tablet 11/29/2018 Provider: Diagnosis: Last Documented On 9 9:53AM By Sharon Sanchez ; [facility] Spironolactone 100MG Oral Tablet 06/24/2018 Provider : Diagnosis: Last Documented On 9 2:26PM By Dian Suárez ; [facility], [facility] Torsemide 100MG Oral Tablet 06/24/2018 Provider: Diagnosis: Last Documented On 9 2:27PM By Dian Suárez ; [facility], [facility] Medications Administered Includes: Administered Medications from this encounter No Administered Medications Recorded Vital Signs Includes: Vital Signs from this encounter Vital Name 06/18/2019 01:30P Height (in) 60 Weight (lb) 200 Body Mass Index (kg/m2) 39.1 Body Surface Area (m2) 1.9 Note: rd Last Documented: On 06/18/2019 1:30PM ; [facility], [facility] Results Includes: Results discussed during this encounter No Results Recorded For Specified Dates History of Present Illness Includes: History of Present Illness from this encounter JAMAL Sawyer is a 48 year old female. - Allergy list reviewed - Problem list reviewed - Medication list reviewed - Medication reconciliation performed Pain Medication: Gabapentin from sx only had one left from 2015. Last Dose: 06/17/2019 Date/Time of Last Dose:at [...] 06/24/2018 Last Documented On 0 1:17PM ; [facility], [facility] Not exercising regularly 08/12/2017 Last Documented On 0 1:17PM ; [facility], [facility] Smoking Status Unknown Procedures and Surgical History Includes: Procedures from this encounter Procedures Code Diagnosis Performing Provider Service L ocation Service Date Clinical summary provided to patient Last Documented On 0 1:17PM ; [facility], [facility] Surgical History Last Updated History of hysterectomy 08/12/2017 Last Documented On 0 1:17PM ; [facility], [facility] Medical History Includes: Medical History addressed during this encounter Description Last Updated Gallbladder disease 06/24/2018 Last Documented On 0 1:17PM ; [facility], [facility] Intermittent hypertension 08/12/2017 Last Documented On 0 1:17PM ; [facility], [facility] Family History Includes: Family History addressed during this encounter Description Last Updated Family history of hypertension 9 Last Documented On 0 1:17PM ; [facility], [facility] Review of Systems Includes: Review [...] Diagnosis IN HOUSE REFERRAL Krystian Brooks MD [facility] 06/18/19 1:15PM 1:53PM Insurance Includes: Active Insurance Policies Plan Name Member ID Group # Subscriber Relationship Effect sridhar Dates 1 - Aetna [facility] [id number] Kimmy Fryman [facility] 12/31 - Unknown 2 - [employer]MI [id number] Kimmy Fryman Self 07/2018 - Unknown Clinical Notes Includes: Clinical Notes from this encounter No Clinical Notes Recorded
--- OUTSIDE RECORDS SUMMARY | 2024-07-26 09:09 | XMS_ITS | Continuity of Care Document ---
Author Organization [facility] Phone Care Team Providers Care Canvas Cutter Name Role Phone YSABEL YONATAN Manuel Primary Care Unavailable KIA GERBER Primary Attending KIA GERBER Admitting KIA GERBER Unavailable RESULTS Patient: TRACY Ellis Date of : 1970 LABORATORY RESULTS Information is not available LABORATORY NARRATIVE RESULTS Information is not available RADIOLOGY RESULTS ORDER 100: MICAELA DIAG MAMMO W /CAD BILAT (LOINC: [id number]) ORDER DATE: July 07, 2024 12:26:00 PM [facility] PERFORMING LAB: [address] [id number] Final Result Date: July 07, 2024 1:04:[address] [address] Name: DOMINGO MOLINA Exam Date: 07/07/2024 : 1970 Age 53 years Gender: F Physician: Kia Gerber Facility: [facility] Facility HSV: Outpatient Exam: MICAELA DIAG MAMMO W/CAD BILAT Exam: 1.Bilateral Diagnostic Mammogram with 2D and 3D (tomosynthesis)imaging 2.Right Breast Ultrasound Clinical indication: Palpable right breast lump for 2 months with occasional pain. Comparison: Exams to 2021 TECHNIQUE: Diagnostic Bilateral 2D mammography and 3D (tomosynthesis) imaging were performed.Targeted ultrasound assessing loyd-scale and color flow performed. BREAST DENSITY:There are scattered areas of fibroglandular density. FINDINGS: Mammography: A radiopaque marker denotes the area of palpable concern in the lower central right breast. Subjacent to the marker, there is no suspicious adjacent findings. No suspicious masses, calcifications, or regions of distortion in either breast. Ultrasound: Right breast, 7:00, 5 cm from the nipple in the area of concern there is benign tissue IMPRESSION: No suspicious findings in the area of concern in the right breast. No evidence of breast malignancy Recommendation: Clinical management for symptoms. Management should be based on clinical exam. Routine screening recommended in one year The results of this report will be reported to the patient by letter in layman's terms. ACR BI-RADS:1- Negative Mammogram Mammography does not detect approximately 10-15% of breast cancers. A normal mammogram does not exclude breast cancer in a patient with palpable mass or abnormal findings on physical examination. These patients may need biopsies and when clinically indicated a biopsy should not be postponed because of a normal mammogram. If the patient has breast surgery or biopsy, FDA/SA Regulatory Guidelines mandate that this facility receive pathologic results for follow-up correlation. Electronically signed by: David Krause MD 07/07/2024 09:34 AM EDT Legally authenticated by LESTER GARZA 2024-07-07 09:04:25 Dictated By: David Krause Transcribed By: Transcribed On: 07/07/2024 9:04 AM Electronically signed by: David Krause 07/07/2024 Thank you for referring DOMINGO MOLINA to [facility]. Legally authenticated by LESTER GARZA 2024-07-07 09:04:25 ORDER 200: US BREAST LTD RT (LOINC: [id number]) ORDER DATE: July 07, 2024 1:14:00 PM [facility] PERFORMING LAB: [address] [id number] Final Result Date: July 07, 2024 1:27:[address] [address] Name: DOMINGO MOLINA Exam Date: 07/07/2024 : 1970 Age 53 years Gender: F Physician: Kia Gerber Facility: [facility] Facility HSV: Outpatient Exam: BREAST [facility] RT Exam: 1.Bilateral Diagnostic Mammogram with 2D and 3D (tomosynthesis)imaging 2.Right Breast Ultrasound Clinical indication: Palpable right breast lump for 2 months with occasional pain. Comparison: Exams to 2021 TECHNIQUE: Diagnostic Bilateral 2D mammography and 3D (tomosynthesis) imaging were performed.Targeted ultrasound assessing loyd-scale and color flow performed. BREAST DENSITY:There are scattered areas of fibroglandular density. FINDINGS: Mammography: A radiopaque marker denotes the area of palpable concern in the lower central right breast. Subjacent to the marker, there is no suspicious adjacent findings. No suspicious masses, calcifications, or regions of distortion in either breast. Ultrasound: Right breast, 7:00, 5 cm from the nipple in the area of concern there is benign tissue IMPRESSION: No suspicious findings in the area of concern in the right breast. No evidence of breast malignancy Recommendation: Clinical management for symptoms. Management should be based on clinical exam. Routine screening recommended in one year The results of this report will be reported to the patient by letter in layman's terms. ACR BI-RADS:1- Negative Mammogram Mammography does not detect approximately 10-15% of breast cancers. A normal mammogram does not exclude breast cancer in a patient with palpable mass or abnormal findings on physical examination. These patients may need biopsies and when clinically indicated a biopsy should not be postponed because of a normal mammogram. If the patient has breast surgery or biopsy, FDA/SA Regulatory Guidelines mandate that this facility receive pathologic results for follow-up correlation. Electronically signed by: David Krause MD 07/07/2024 09:34 AM EDT Legally authenticated by LESTER GARZA 2024-07-07 09:27:20 Dictated By: David Krause Transcribed By: Transcribed On: 07/07/2024 9:27 AM Electronically signed by: David Krause 07/07/2024 Thank you for referring DOMINGO MOLINA to [facility]. Legally authenticated by LESTER GARZA 2024-07-07 09:27:20 PATHOLOGY NARRATIVE RESULTS Information is not available MICROBIOLOGY RESULTS No Micro Labs/Results Exist for Patient BLOOD ADMIN RESULTS Information is not available MEDICATIONS HOME MEDICATIONS Status RXNORM NDC Medication Dose Route Frequency Dates Comments Reported By Updated By Drug Treatment Unknown DISCHARGE MEDICATIONS Status RXNORM NDC Medication Dose Route Frequency Dates Comments Physician Updated By No Discharge Medication Info rmation Available INPATIENT MEDICATIONS Status RXNORM NDC Medication Dose Route Frequency Rat e Quantity Dates Comments Physician Updated By No Inpatient Medication Info rmation Available SOCIAL HISTORY SOCIAL HISTORY SNOMED-CT Social History Element Description Effective Dates Offered Cessation Comment UpdatedBy [id number] Smoking Status Unknown If Ever Smoked SOCIAL HISTORY - Gender Sex: Female SOCIAL HISTORY - Status : status i nformation is not available Intention in Next Year: intention information is not available SOCIAL HISTORY - Sexual Behavior Sexual Orientation Gender Identity SNOMED-CT Description SNO MED -CT Description Activity Level No of Partners Partner Type UpdatedBy Information is not available HEALTH CONCERNS Problems Concern Status Health Concern problem infor mation not available. Smoking Status Status Years Used Consumed packs p er day Health Concern smoking histo ry information not available. Family History Concern Status Health Concern family histor y information not available. ENCOUNTERS ENCOUNTER INFORMATION Reason for Visit DIAGNOSTIC AND ULS Admission July 07, 2024 12:17:[address] [address] Discharge July 07, 2024 12:17:00 PM [facility] DI SCHARGED TO HOME OR SELF CARE ENCOUNTER DIAGNOSES Notes information is not ryan ilable. Code System Diagnosis Onset Date Diagnosis information is not available. ABSTRACT DIAGNOSES Code System Diagnosis Updated By N64.4 ICD10 MASTODYNIA [id number] on 2024 3:49:02 AM [facility] R92.8 ICD10 OTHER ABNORMAL A ND INCONCLUSIVE FINDINGS ON DIAGNOSTIC IMAGING OF BREAST [id number] on July 09, 2024 3:49:02 AM [facility] N64.4 ICD10 MASTODYNIA [id number] on 2024 3:49:02 AM [facility] R92.8 ICD10 OTHER ABNORMAL A ND INCONCLUSIVE FINDINGS ON DIAGNOSTIC IMAGING OF BREAST [id number] on July 09, 2024 3:49:02 AM [facility] CARE TEAM Care Canvas Cutter Role YONATAN GRADY Primary Care KIA GERBER Primary Attending KIA GERBER Admitting KIA GERBER Referring CARE TEAM CARE outreach team member Role on Team Status Start Date End Date Update d By YSABEL Jackson PCP normal July 07 4:00:00 AM UTC July 07, 2024 12:17:00 PM UTC [id number] on July 07, 2024 12:20:56 PM UTC KATHLEEN Jackson PCP normal June 15, 2024 4:05:55 PM UTC July 07, 2024 4:00:00 AM UTC [id number] on July 07, 2024 12:20:56 PM UTC BRENDON QUINTERO Referring normal June 15 025 4:05:55 PM UTC July 07, 2024 12:17:00 PM UTC [id number] on July 07, 2024 12:20:56 PM UTC BRENDON QUINTERO Attending normal June 15, 025 4:05:55 PM UTC July 07, 2024 12:17:00 PM UTC [id number] on July 07, 2024 12:20:56 PM UTC BRENDON QUINTERO Admitting normal June 15, 2 025 4:05:55 PM UTC July 07, 2024 12:17:00 PM UTC [id number] on July 07, 2024 12:20:56 PM UTC
--- OUTSIDE RECORDS SUMMARY | 2024-07-26 09:10 | XMS_ITS | Clinical Summary ---
Author Organization [facility] , [facility] Address [address] [place] [address] Phone Care Team Providers Care Military Pay Technician Name Role Phone Maira MARTINEZ, Arben Plummer [...] Documented On 9 1:54PM ; [facility] Past Visits Onset Date Resolved Date Provider Condition Status Joint Pain, Localized in the Hip 08/12/2017 Evan Hastings MD Active Last Documented On 8 3:56PM ; [facility], [facility] Plan of Treatment Instructions to patient Instructions for patient see pcp for weight and BP Last Documented On 9 9:48AM ; [facility], [facility] Lose weight Last Documented On 9 9:48AM ; [facility], [facility] Assessments Includes: Assessments from this encounter No Assessments Recorded Instructions Includes: Instructions from this encounter Instructions to patient Instructions for patient see pcp for weight and BP Last Documented On 9 9:48AM ; [facility] Lose weight Last Documented On 9 9:48AM ; [facility], [facility] Medical Equipment - Implanted Devices Includes: Current Devices No Medical Equipment Recorded Medications Includes: Medications discussed during this encounter and other current Medications Current Medications (continue as prescribed) Estradiol 1 MG Oral Tablet 01/22/2019 Provider: Diagnosis: Last Documented On 9 11:36AM By Sharon Sanchez ; [facility] buPROPion HCl ER (SR) 150 MG Oral Tablet Extended Release 12 Hour 01/19/2019 Provider: Diagnosis: Last Documented On 9 11:36AM By Sharon Sanchez ; [facility] Adult Aspirin EC Low Strengt h 81 MG Oral Tablet Delayed Release 12/21/2018 Provider: Diagnosis: Last Documented On 9 9:55AM By Sharon Sanchez ; [facility] Cetirizine HCl 10 MG Oral Capsule 12/18/2018 Provide r: Diagnosis: Last Documented On 9 9:54AM By Sharon Sanchez ; [facility] Fluzone Quadrivalent 9 MCG/S TRAIN Intradermal Suspension Pen-injector 12/08/2018 Provider: Diagnosis: Last Documented On 9 9:54AM By Sharon Sanchez ; [facility] PARoxetine HCl 10 MG Oral Tablet 12/08/2018 Provider : Diagnosis: Last Documented On 9 9:55AM By Sharon Sanchez ; [facility] Bisoprolol Fumarate 5 MG Oral Tablet 12/04/2018 Prov ider: Diagnosis: Last Documented On 9 9:54AM By Sharon Sanchez ; [facility] Drospirenone-Estradiol 0.5-1 MG Oral Tablet 11/29/2018 Provider: Diagnosis: Last Documented On 9 9:53AM By Sharon Sanchez ; [facility] Spironolactone 100MG Oral Tablet 06/24/2018 Provider : Diagnosis: Last Documented On 9 2:26PM By Dian Suárez ; [facility], [facility] Torsemide 100MG Oral Tablet 06/24/2018 Provider: Diagnosis: Last Documented On 9 2:27PM By Dian Suárez ; [facility], [facility] Past Medications on file [place] 5-325 MG Oral Tablet 06/18/2019 - 07/18/2019 Pro vider: Krystian Brooks MD Diagnosis: 1 tab every 12 hours Last Documented On 0 1:56PM By Anuel Casper ; [facility], [facility] Medications Administered Includes: Administered Medications [...] 06/24/2018 Last Documented On 9 9:48AM ; [facility] No recent change in diet 08/12/2017 Last Documented On 9 9:48AM ; [facility] Not a current smoker 08/12/2017 Last Documented On 9 9:48AM ; [facility] Not exercising regularly 08/12/2017 Last Documented On 9 9:48AM ; [facility] Not using alcohol 08/12/2017 Last Documented On 9 9:48AM ; [facility] Not using drugs 08/12/2017 Last Documented On 9 9:48AM ; [facility], [facility] No tobacco use 08/12/2017 Last Documented On 9 9:48AM ; [facility] Smoking status : Never smoker 08/12/2017 Last Documented On 9 9:48AM ; [facility], [facility] Procedures and Surgical History Includes: Procedures from this encounter Procedures Code Diagnosis Performing Provider Service L ocation Service Date Clinical summary provided to patient Last Documented On 9 9:48AM ; [facility], [facility] Surgical History Last Updated History of hysterectomy 08/12/2017 Last Documented On 9 9:48AM ; [facility] Medical History Includes: Medical History addressed during this encounter Description Last Updated Gallbladder disease 06/24/2018 Last Documented On 9 9:48AM ; [facility] Intermittent hypertension 08/12/2017 Last Documented On 9 9:48AM ; [facility] Family History Includes: Family History addressed during this encounter Description Last Updated Family history of hypertension 9 Last Documented On 9 9:48AM ; [facility] No significant family history 08/12/2017 Last Documented On 9 9:48AM ; [facility] Review of Systems Includes: Review of Systems [...] Time Diagnosis Follow Up Evan Hastings MD [facility] 9 9:46AM 11:06AM Insurance Includes: Active Insurance Policies Plan Name Member ID Group # Subscriber Relationship Effect sridhar Dates 1 - Aetna [facility] [id number] Jessica Navarrete Breannatab Self 12/31 - Unknown 2 - NOHEMI [id number] Kimmy Fryman Self 07/2018 - Unknown Clinical Notes Includes: Clinical Notes from this encounter No Clinical Notes Recorded
--- OUTSIDE RECORDS SUMMARY | 2024-07-26 09:10 | XMS_ITS ---
Author Organization [facility] , [facility] Address [address] [place] [address] Phone Care Team Providers Care Director Quality Systems Name Role Phone Maira MARTINEZ, Arben Plummer Primary Care Provider [phone] Venkata MARTINEZ, Evan Young Unavailable [phone] Sonido Ervin MD Unavailable [phone] Problems Includes: Active, inactive, and resolved Problems All Visits Onset Date Resolved Date Provider Condition S tatus Lower Back Pain 06/24/2018 Evan Hastings MD Act sridhar Last Documented On 9 1:54PM ; [facility] Joint Pain, Localized in the Hip 08/12/2017 Bryce Hastings MD Active Last Documented On 8 3:56PM ; [facility] Plan of Treatment Instructions to patient Instructions for patient See PCP for Weight Loss Last Documented On 0 1:17PM ; [facility] Instructions for patient See PCP for Weight Loss Last Documented On 0 3:18PM ; [facility] Instructions for patient see pcp for weight and BP Last Documented On 9 9:48AM ; [facility] Lose weight Last Documented On 9 9:48AM ; [facility] Instructions for patient see pcp for weight and BP Last Documented On 9 11:32AM ; [facility] Lose weight Last Documented On 9 11:32AM [...] wt Last Documented On 9 11:46AM ; [facility] Lose weight Last Documented On 9 11:46AM ; [facility] Instructions for patient to see pcp for bp and wt Last Documented On 9 1:55PM ; [facility] Lose weight Last Documented On 9 1:55PM ; [facility] Medical Equipment - Implanted Devices Includes: Current and historical Devices No Medical Equipment Recorded Medications Includes: Current and historical Medications Current Medications (continue as prescribed) Estradiol 1 MG Oral Tablet 01/22/2019 Provider: Diagnosis: Last Documented On 9 11:36AM By Sharon Sanchez ; [facility] buPROPion HCl ER (SR) 150 MG Oral Tablet Extended Release 12 Hour 01/19/2019 Provider: Diagnosis: Last Documented On 9 11:36AM By Sharon Sanchez ; [facility] Adult Aspirin EC Low Strengt h 81 MG Oral Tablet Delayed Release 12/21/2018 Provider: Diagnosis: Last Documented On 9 9:55AM By Sharon Sanchez ; [facility] Cetirizine HCl 10 MG Oral Capsule 12/18/2018 Provide r: Diagnosis: Last Documented On 9 9:54AM By Sharon Sanchez ; [facility] Fluzone Quadrivalent 9 MCG/S TRAIN Intradermal Suspension Pen-injector 12/08/2018 Provider: Diagnosis: Last Documented On 9 9:54AM By Sharon Sanchez ; [facility] PARoxetine HCl 10 MG Oral Tablet 12/08/2018 Provider : Diagnosis: Last Documented On 9 9:55AM By Sharon Sanchez ; [facility] Bisoprolol Fumarate 5 MG Oral Tablet 12/04/2018 Prov ider: Diagnosis: Last Documented On 9 9:54AM By Sharon Sanchez ; [facility] Drospirenone-Estradiol 0.5-1 MG Oral Tablet 11/29/2018 Provider: Diagnosis: Last Documented On 9 9:53AM By Sharon Sanchez ; [facility] Spironolactone 100MG Oral Tablet 06/24/2018 Provider : Diagnosis: Last Documented On 9 2:26PM By Dian Suárez ; [facility] Torsemide 100MG Oral Tablet 06/24/2018 Provider: Diagnosis: Last Documented On 9 2:27PM By Dian Suárez ; [facility] Past Medications on file [place] 5-325 MG Oral Tablet 06/18/2019 - 07/18/2019 Pro vider: Krystian Brooks MD Diagnosis: 1 tab every 12 hours Last Documented On 0 1:56PM By Anuel Casper ; [facility] Premarin 1.25MG Oral Tablet 06/24/2018 - 12/21/2018 Pr ovider: Diagnosis: Last Documented On 9 9:52AM By Sharon Sanchez ; [facility], [facility] Medications Administered Includes: Administered Medications in patient's chart No Administered Medications Recorded Results Includes: Results from 07/27/2023 through 07/26/2024 No Results Recorded For Specified Dates History of Present Illness History of Present Illness not supported for this document type No History of Present Illness Recorded Social History Description Last Updated Caffeine use 06/24/2018 Last Documented On 9 11:57AM ; [facility], [facility] No recent change in diet 08/12/2017 Last Documented On 8 8:50AM ; [facility] Not a current smoker 08/12/2017 Last Documented On 8 8:50AM ; [facility], [facility] Not exercising regularly 08/12/2017 Last Documented On 8 8:50AM ; [facility] Not using alcohol 08/12/2017 Last Documented On 8 8:50AM ; [facility] Not using drugs 08/12/2017 Last Documented On 8 8:50AM ; [facility] No tobacco use 08/12/2017 Last Documented On 8 8:50AM ; [facility] Smoking status : Never smoker 08/12/2017 Last Documented On 8 8:50AM ; [facility], [facility] Procedures and Surgical History Surgical History Last Updated History of hysterectomy 08/12/2017 Last Documented On 8 8:50AM ; [facility] Medical History Includes: Medical History in patient's chart Description Last Updated Gallbladder disease 06/24/2018 Last Documented On 9 11:57AM ; [facility] Intermittent hypertension 08/12/2017 Last Documented On 8 8:50AM ; [facility], [facility] Family History Includes: Family History in patient's chart Description Last Updated Family history of hypertension 9 Last Documented On 9 11:57AM ; [facility] No significant family history 08/12/2017 Last Documented On 8 8:50AM ; [facility] Review of Systems Review of [...] Subscriber Relationship Effect sridhar Dates 1 - Ae [facility] [id number] Jessica Sawyer Self 12/31 - Unknown 2 - NOHEMI [id number] Jessica Sawyer Self 07/2018 - Unknown Clinical Notes Includes: Signed Clinical Notes starting from 03/14/2022 No Clinical Notes Recorded
--- OUTSIDE RECORDS SUMMARY | 2024-07-26 09:10 | XMS_ITS | Clinical Summary ---
Author Organization [facility] , [facility] Address [address] [place] [address] Phone Care Team Providers Care Accounts Administrator Name Role Phone Maira MARTINEZ, Arben Plummer [...] sridhar Last Documented On 9 1:54PM ; [facility] Joint Pain, Localized in the Hip 08/12/2017 Bryce Hastings MD Active Last Documented On 8 3:56PM ; [facility] Plan of Treatment No Plan of Treatment Recorded Assessments Includes: Assessments from this encounter No Assessments Recorded Medical Equipment - Implanted Devices Includes: Current Devices No Medical Equipment Recorded Medications Includes: Medications discussed during this encounter and other current Medications Current Medications (continue as prescribed) Estradiol 1 MG Oral Tablet 01/22/2019 Provider: Diagnosis: Last Documented On 9 11:36AM By Sharon Gabriel [facility] buPROPion HCl ER (SR) 150 MG Oral Tablet Extended Release 12 Hour 01/19/2019 Provider: Diagnosis: Last Documented On 9 11:36AM By Sharon Gabriel [facility] Adult Aspirin EC Low Strengt h 81 MG Oral Tablet Delayed Release 12/21/2018 Provider: Diagnosis: Last Documented On 9 9:55AM By Sharon Daniel ; [facility] Cetirizine HCl 10 MG Oral Capsule 12/18/2018 Provide r: Diagnosis: Last Documented On 9 9:54AM By Sharon Daniel ; [facility], [facility] Fluzone Quadrivalent 9 MCG/S TRAIN Intradermal Suspension Pen-injector 12/08/2018 Provider: Diagnosis: Last Documented On 9 9:54AM By Sharon Sanchez ; [facility] PARoxetine HCl 10 MG Oral Tablet 12/08/2018 Provider : Diagnosis: Last Documented On 9 9:55AM By Sharon Daniel ; [facility] Bisoprolol Fumarate 5 MG Oral Tablet 12/04/2018 Prov ider: Diagnosis: Last Documented On 9 9:54AM By June Daniel ; [facility] Drospirenone-Estradiol 0.5-1 MG Oral Tablet 11/29/2018 Provider: Diagnosis: Last Documented On 9 9:53AM By Sharon Sanchez ; [facility] Spironolactone 100MG Oral Tablet 06/24/2018 Provider : Diagnosis: Last Documented On 9 2:26PM By Dian Suárez ; [facility] Torsemide 100MG Oral Tablet 06/24/2018 Provider: Diagnosis: Last Documented On 9 2:27PM By Dian Suárez ; [facility] Medications Administered Includes: Administered Medications from this [...] Check- Out Time Diagnosis Epidural Steroid Injection [facility] 9 9:43AM 10:11AM Insurance Includes: Active Insurance Policies Plan Name Member ID Group # Subscriber Relationship Effect sridhar Dates 1 - [employer]etna [facility] [id number] Jessica Sawyer Self 12/31 - Unknown 2 - [employer]HEMI [id number] Jessica Sawyer Self 07/2018 - Unknown Clinical Notes Includes: Clinical Notes from this encounter No Clinical Notes Recorded
[2024-07-26 09:13] VITALS: BP 128/67; PULSE 70; RESP 18; O2SAT 96; BMI 47.5
--- NOTE | 2024-07-26 09:54 | A.OFFVIS_ITS ---
[facility] Disclaimer: The information contained in this section may have been updated after the patient was seen, as this information can be updated by other users. Medical History Typical angina Enteritis Abnormal cardiovascular stress test Asthma COPD (chronic obstructive pulmonary disease) Hyperlipidemia Hyperlipidemia associated with type 2 diabetes mellitus Morbidly obese Coronary artery disease Abnormal result of cardiovascular function study Tachycardia Diastolic dysfunction HTN (hypertension) Edema Dyspnea Chest pain BMI 36.0-36.9,adult Depression Surgical History History of hysterectomy Family History Other No significant family history Social History Smoking Status: Never smoker second hand exposure: No alcohol intake: never substance use type: denies use current occupational status: other Travel in the last 8 weeks: None household members: none housing: house current occupational exposures/hazards: No caffeine: Yes PM Subjective & Objective Subjective Subjective:: Patient is a pleasant 53-year-old female who presents today for follow-up of lumbar epidural steroid injection L4-L5 on 07/13/2024. She does rate 80% improvement following this injection and feels like it is still working well. Patient does have pains in other areas and rates her general pain a 7 out of 10. She denies any new falls or injuries. Patient does have questions regarding the spinal cord stimulator trial. Patient is currently managed with Tylenol 3 daily, methocarbamol 500 mg twice a day and tizanidine 4 mg at bedtime. She denies any side effects. Patient states she does not think she needs refills at this time. Her Alex has been reviewed and is appropriate. Review of Systems: General: No recent weight changes, no fever, no sleep disturbances Respiratory: No cough, no shortness of air, no recurring pulmonary infections Cardiovascular/peripheral vascular: No chest pain, no palpitations, no edema, no shortness of breath Gastrointestinal: No new onset incontinence, normal bowel movements reported Genitourinary: No new onset incontinence Musculoskeletal: Chronic back pain Psychiatric: [Normal mood/affect] Neurological: [Denies weakness in extremities], [denies balance issues] Pain at rest (0-10 scale): 7 Objective Objective:: Physical Exam: General: Alert and oriented x3, no acute distress, pleasant and cooperative Lungs: Respirations even and unlabored, symmetrical chest expansion Eyes: PERRL Musculoskeletal: Flexion and extension of lumbar [spine] somewhat guarded secondary to pain Neurological: Speech clear, no gross sensory deficit Has patient had previous pain injection?: Yes Percent improvement in pain since last injection: 80% Conservative treatment options previously tried: Home exercise plan Length of treatment: Longer than 12 weeks Meds Home Medications and Allergies Home Medications ?Medication ?Instructions ?Recorded ?Confirmed ?Type buspirone 10 mg tablet 10 mg PO DAILY 03/26/24 07/26/24 History dicyclomine 10 mg capsule 10 mg PO DAILY 03/26/24 07/26/24 History tramadol 50 mg tablet 50 mg PO Q4-6H 03/26/24 07/26/24 History albuterol sulfate 0.63 mg/3 mL 0.63 mg inhalation Q6H 04/08/24 07/26/24 History solution for nebulization bisoprolol fumarate 5 mg tablet 5 mg PO DAILY 04/08/24 07/26/24 History bumetanide 2 mg tablet 2 mg PO DAILY 04/08/24 07/26/24 History cariprazine 1.5 mg capsule 1.5 mg PO Q OTHER DAY 04/08/24 07/26/24 History (Yelenalar) escitalopram oxalate 20 mg tablet 20 mg PO DAILY 04/08/24 07/26/24 History estradiol 0.01% (0.1 mg/gram) 1 appful vaginal DAILY 04/08/24 07/26/24 History vaginal cream estradiol 1 mg tablet 1 mg PO DAILY 04/08/24 07/26/24 History linaclotide 145 mcg capsule 145 mcg PO DAILY 04/08/24 07/26/24 History methylcellulose (laxative) 2 g PO DAILY 04/08/24 07/26/24 History pantoprazole 40 mg tablet,delayed 40 mg PO DAILY 04/08/24 07/26/24 History release polyethylene glycol 3350 17 17 g PO DAILY 04/08/24 07/26/24 History gram/dose oral powder (Miralax) prazosin 1 mg capsule 1 mg PO HS 04/08/24 07/26/24 History trazodone 50 mg tablet 50 mg PO DAILY 04/08/24 07/26/24 History spironolactone 100 mg tablet See Rx Instructions .Route 05/06/24 07/26/24 Rx .COMPLEX #90 tabs sodium,potassium,mag sulfates 17.5 See Rx Instructions PO .COMPLEX 05/07/24 07/26/24 Rx gram-3.13 gram-1.6 gram oral soln #354 mL (Suprep Bowel Prep Kit) buspirone 10 mg tablet 20 mg (2 x 10 mg) PO BID #120 tabs 05/20/24 07/26/24 Rx acetaminophen 300 mg-codeine 30 mg 1 tab PO DAILY #30 tabs 05/26/24 07/26/24 Rx tablet methocarbamol 500 mg tablet 500 mg PO BID #60 tabs 05/26/24 07/26/24 Rx tizanidine 4 mg capsule 4 mg PO HS PRN , #30 caps 05/26/24 07/26/24 Rx atorvastatin 10 mg tablet See Rx Instructions .Route 07/13/24 07/26/24 Rx .COMPLEX #90 tabs linaclotide 72 mcg capsule 72 mcg PO DAILY #30 caps 07/26/24 Rx (Linzess) New Prescriptions to Start Prescriptions: Allergies Allergy/AdvReac Type Severity Reaction Status Date / Time No Known Allergies Allergy Verified 05/20/24 08:41 Assessment and Plan *Assessment and plan (1) Lumbar radiculopathy: Status: Acute Category: Medical Code(s): M54.16 - Radiculopathy, lumbar region (2) Degenerative disc disease, lumbar: Status: Acute Qualifiers: Disc-related pain type: discogenic back pain and lower extremity pain Qualified Code(s): M51.362 - Other intervertebral disc degeneration, lumbar region with discogenic back pain and lower extremity pain Category: Medical Code(s): M51.369 - Other intervertebral disc degeneration, lumbar region without mention of lumbar back pain or lower extremity pain Plan Patient has had significant relief following the epidural and does not require any additional injection therapy at this time. We did discuss over length regarding the stimulator trial and she was counseled that the first steps would be ordering the psychological evaluation as well as ordering additional advanced imaging for updated lumbar imaging and to send her for neurosurgery for consult. Patient acknowledges understanding. I did discuss with patient if she decides between now and our next visit that she would like to proceed forward with this option all that she would need to do would be to call and I can get the ball rolling on these orders. Patient agrees with this plan of care. Patient will return to clinic in 1 month. Patient has been instructed to contact the clinic with any concerns before the next appointment. Dr. Kirk has reviewed this note and agrees with this plan of care. This note was dictated using voice recognition software and make contain errors or omissions. All injections are used with Lidocaine, Bupivacaine and dexamethasone. Occasionally urine drug screen is needed to verify patient's compliance with our office pain contract. This is ordered based off specific treatments related to chronic pain with the potential to abuse certain medications.
== END 2024-07-26 23:59 | disposition home or self-care (01) ==
PROVIDERS: PCP Family Medicine; Visit Provider Nurse Practitioner Family
DX: M51.16 Intervertebral disc disorders with radiculopathy, lumbar region (principal); Z79.899 Other long term (current) drug therapy
CPT/HCPCS: 99212; G0463

== ENCOUNTER 2024-08-12 10:00 | Outpatient (CLI) | payer MEDICARE, MEDICAID, SELFPAY ==
[2024-08-12 18:21] LABS: Microscopic, Urine URINE MICROSCOPIC (MICROSCOPIC)
[2024-08-12 18:39] LABS: Appearance,Urine CLEAR (Clear); Bilirubin,Urine Negative (Negative); Blood, Urine Negative (Negative); Color,Urine YELLOW (Yellow); Glucose,Urine (UA) Negative (Negative); Ketones,Urine Negative (Negative); Leukocyte Esterase,Urine Negative (Negative); Nitrate,Urine Negative (Negative); Protein,Urine Negative (Negative); Specific Gravity, Urine 1.015 (1.005-1.030); Urobilinogen,Urine 0.2 EU/dl (0.2)
[2024-08-12 18:59] LABS: Basophils # 0.1 K/mm3 (0-0.2); Basophils % 0.8 % (0.1-2.0); Eosinophils # 0.2 Kmm3 (0.0-0.4); Eosinophils % 2.6 % (0.1-12.0); Hematocrit 40.9 % (37.0-47.0); Hemoglobin 13.4 g/dL (12.2-16.2); Immature Granulocytes # 0.01 10^3uL; Immature Granulocytes % 0.2 %; Lymphocytes # 2.6 K/mm3 (0.7-4.5); Lymphocytes % 38.6 % (10-50); Mean Corpuscular HGB Conc 32.8 g/dL (31.8-35.4); Mean Corpuscular Hemoglobin 31.5 pg (27.0-31.2); Mean Corpuscular Volume 96.2 fl (81-99); Mean Platelet Volume 11.5 fl (7.4-10.4); Monocytes # 0.6 K/mm3 (0.1-1.0); Monocytes % 8.3 % (1.7-9.3); Neutrophils # 3.3 K/mm3 (1.8-7.8); Neutrophils % 49.5 % (37.0-80.0); Nucleated Red Blood Cells # 0 10^3/uL; Nucleated Red Blood Cells % 0 %; Platelet Count 258 K/mm3 (142-424); Red Blood Count 4.25 M/mm3 (4.20-5.40); Red Cell Distribution Width 12.8 % (11.5-17.5); Red Cell Distribution Width-SD 44.4 fL; White Blood Count 6.7 K/mm3 (4.8-10.8)
[2024-08-12 19:11] LABS: Alanine Aminotransferase 27 U/L (12-78); Albumin Level 4.1 g/dl (3.5-5.0); Albumin/Globulin Ratio 1.6 (1.1-1.8); Alkaline Phosphatase 58 U/L (38-126); Anion Gap 10.3 mEq/L (5-15); Aspartate Amino Transferase 26 U/L (14-36); Bilirubin,Total 0.4 mg/dl (0.2-1.3); Blood Urea Nitrogen 16 mg/dl (7-17); Calcium 9.4 mg/dl (8.4-10.2); Carbon Dioxide 24 mmol/L (22.0-30.0); Chloride 108 mmol/L (98-107); Chol/HDL Ratio 2.8 (1-3.5); Cholesterol 141 mg/dl (140-200); Estimated Glomerular Filt Rate 75 ml/min (>60); GFR (African American) 91 ML/MIN (>60); Globulin 2.5 g/dL (1.3-3.2); Glucose 85 mg/dl (74-100); HDL Cholesterol 51 mg/dl (40-60); Potassium 4.3 mmoL/L (3.5-5.1); Sodium 138 mmol/L (136-145); Total Protein,Serum 6.6 g/dl (6.3-8.2); Triglycerides 106 mg/dl (30-150); VLDL Cholesterol 21 mg/dL (0-40)
[2024-08-12 19:23] LABS: Direct LDL Cholesterol 67.91 mg/dL (100-129)
[2024-08-12 19:46] LABS: Hemoglobin A1C 5.5 % (4.0-6.0)
[2024-08-12 20:35] LABS: Bacteria,Urine Trace /lpf; RBC,Urine Occasional #/hpf (0-3); WBC,Urine Occasional #/hpf (0-3)
== END 2024-08-12 23:59 | disposition home or self-care (01) ==
LOC: LAB.DROPOF 08-13 11:08
PROVIDERS: PCP Family Medicine; Visit Provider Family Medicine
DX: R10.9 Unspecified abdominal pain (principal); E78.2 Mixed hyperlipidemia; R73.09 Other abnormal glucose
CPT/HCPCS: 80053; 80061; 81001; 83036; 85025; 87086

== ENCOUNTER 2024-08-18 14:26 | Outpatient (CLI) | payer MEDICARE, MEDICAID, SELFPAY ==
--- NOTE | 2024-08-18 14:30 | US_ITS ---
FINAL REPORT CLINICAL HISTORY: abd wall pain FINDINGS: Limited sonographic images of the right anterior abdominal wall were obtained. No mass or fluid collection is identified. There is no obvious abdominal wall hernia. IMPRESSION: No mass or fluid collection identified. Reviewed, Interpreted and Dictated by Willow Zavala MD Transcribed by Shereen Mason Authenticated and [facility]
== END 2024-08-18 23:59 | disposition home or self-care (01) ==
LOC: RAD 14:27
PROVIDERS: PCP Family Medicine; Visit Provider Family Medicine
DX: R10.9 Unspecified abdominal pain (principal)
CPT/HCPCS: 76705

== ENCOUNTER 2024-08-30 10:39 | Outpatient (POV) | payer MEDICARE, SELFPAY ==
[2024-08-30 11:35] VITALS: BP 127/80; PULSE 98; RESP 14; O2SAT 96; BMI 46.4
--- NOTE | 2024-08-30 12:12 | EXP.PAIN.SOA ---
[facility] Disclaimer: The information contained in this section may have been updated after the patient was seen, as this information can be updated by other users. Medical History Elevated glucose Abdominal wall pain in right flank Typical angina Enteritis Abnormal cardiovascular stress test Asthma COPD (chronic obstructive pulmonary disease) Hyperlipidemia Hyperlipidemia associated with type 2 diabetes mellitus Morbidly obese Coronary artery disease Abnormal result of cardiovascular function study Tachycardia Diastolic dysfunction HTN (hypertension) Edema Dyspnea Chest pain BMI 36.0-36.9,adult Depression Surgical History History of hysterectomy Family History Other No significant family history Social History Smoking Status: Never smoker second hand exposure: No alcohol intake: never substance use type: denies use current occupational status: other Travel in the last 8 weeks?: None household members: none housing: house current occupational exposures/hazards: No caffeine: Yes PM Subjective & Objective Subjective Subjective:: Patient is a pleasant 53-year-old female who presents today for worsening low back and leg pain that goes down both her legs. She rates her pain an 8 out of 10. She denies any new falls or injuries. Patient does feel like her last injection is really starting to wear off and she notices it more frequently. Patient does state the pain is interfering with her ability perform activities of daily living such as cooking and cleaning. Patient is currently managed with methocarbamol 500 mg twice a day and tizanidine 4 mg at bedtime from our office. Patient had been on Tylenol 3 however recently her primary care did change her to [place] 5 mg twice daily. Patient denies any side effects from this medication and feels like this is actually helping provide more relief. She states she has been able to sleep better. Her Alex has been reviewed and is appropriate. Review of Systems: General: No recent weight changes, no fever, no sleep disturbances Respiratory: No cough, no shortness of air, no recurring pulmonary infections Cardiovascular/peripheral vascular: No chest pain, no palpitations, no edema, no shortness of breath Gastrointestinal: No new onset incontinence, normal bowel movements reported Genitourinary: No new onset incontinence Musculoskeletal: Low back pain, bilateral leg pain Psychiatric: [Normal mood/affect] Neurological: [Denies weakness in extremities], [denies balance issues] Pain at rest (0-10 scale): 8 Objective Objective:: Physical Exam: General: Alert and oriented x3, no acute distress, pleasant and cooperative Lungs: Respirations even and unlabored, symmetrical chest expansion Eyes: PERRL Musculoskeletal: Flexion and extension of lumbar [spine] somewhat guarded secondary to pain, [antalgic gait noted] positive leg raise Neurological: Speech clear, no gross sensory deficit Has patient had previous pain injection?: No Conservative treatment options previously tried: Home exercise plan Length of treatment: Longer than 12 weeks Meds Home Medications and Allergies Home Medications ?Medication ?Instructions ?Recorded ?Confirmed ?Type dicyclomine 10 mg capsule 10 mg PO DAILY 03/26/24 08/30/24 History albuterol sulfate 0.63 mg/3 mL 0.63 mg inhalation Q6H 04/08/24 08/30/24 History solution for nebulization bumetanide 2 mg tablet 2 mg PO DAILY 04/08/24 08/30/24 History cariprazine 1.5 mg capsule 1.5 mg PO Q OTHER DAY 04/08/24 08/30/24 History (Vraylar) escitalopram oxalate 20 mg tablet 20 mg PO DAILY 04/08/24 08/30/24 History estradiol 0.01% (0.1 mg/gram) 1 appful vaginal DAILY 04/08/24 08/30/24 History vaginal cream estradiol 1 mg tablet 1 mg PO DAILY 04/08/24 08/30/24 History linaclotide 145 mcg capsule 145 mcg PO DAILY 04/08/24 08/30/24 History methylcellulose (laxative) 2 g PO DAILY 04/08/24 08/30/24 History pantoprazole 40 mg tablet,delayed 40 mg PO DAILY 04/08/24 08/30/24 History release prazosin 1 mg capsule 1 mg PO HS 04/08/24 08/30/24 History trazodone 50 mg tablet 50 mg PO DAILY 04/08/24 08/30/24 History spironolactone 100 mg tablet See Rx Instructions .Route 05/06/24 08/30/24 Rx .COMPLEX #90 tabs buspirone 10 mg tablet 20 mg (2 x 10 mg) PO BID #120 tabs 05/20/24 08/30/24 Rx methocarbamol 500 mg tablet 500 mg PO BID #60 tabs 05/26/24 08/30/24 Rx tizanidine 4 mg capsule 4 mg PO HS PRN , #30 caps 05/26/24 08/30/24 Rx atorvastatin 10 mg tablet See Rx Instructions .Route 07/13/24 08/30/24 Rx .COMPLEX #90 tabs hydrocodone 5 mg-acetaminophen 325 1 tab PO BID PRN pain 30 days #45 07/28/24 08/30/24 Rx mg tablet tabs tirzepatide 2.5 mg/0.5 mL 2.5 mg SQ WEEKLY 08/12/24 08/30/24 History subcutaneous pen injector bisoprolol fumarate 5 mg tablet See Rx Instructions .Route 08/18/24 08/30/24 Rx .COMPLEX #90 tabs losartan 25 mg tablet 25 mg PO DAILY #30 tabs 08/25/24 08/30/24 Rx budesonide-formoterol HFA 160 See Rx Instructions .Route 08/26/24 08/30/24 Rx mcg-4.5 mcg/actuation aerosol .COMPLEX #10.2 grams inhaler New Prescriptions to Start Prescriptions: Allergies Allergy/AdvReac Type Severity Reaction Status Date / Time No Known Allergies Allergy Verified 08/25/24 08:26 Assessment and Plan *Assessment and plan (1) Lumbar radiculopathy: Status: Acute Category: Medical Code(s): M54.16 - Radiculopathy, lumbar region (2) Degenerative disc disease, lumbar: Status: Acute Qualifiers: Disc-related pain type: discogenic back pain and lower extremity pain Qualified Code(s): M51.362 - Other intervertebral disc degeneration, lumbar region with discogenic back pain and lower extremity pain Category: Medical Code(s): M51.369 - Other intervertebral disc degeneration, lumbar region without mention of lumbar back pain or lower extremity pain Plan Patient is experiencing worsening pain in her low back with numbness and tingling into her lower extremities. Patient did have limited range of motion of her lumbar spine with a positive leg raise. I did discuss with patient that I do believe they would benefit from a lumbar epidural steroid injection. Risk and benefits were discussed with patient and the patient would like to proceed forward with this plan of care. Patient is not on any blood thinners. Patient has tried and failed conservative therapy including oral medications, heat and ice, topicals and continued at home stretching exercise for longer than 12 weeks between injections. Patient has had chronic back pain for longer than 6 months. Patient did previously have a lumbar epidural back in June that provided 80% relief and lasted longer than 2 months. We will schedule the patient for an LESI L4-L5 under fluoroscopy. I will also make sure she has refills on her muscle relaxers. Patient has been instructed to contact the clinic with any concerns before the next appointment. Dr. Kirk has reviewed this note and agrees with this plan of care. This note was dictated using voice recognition software and make contain errors or omissions. All injections are used with Lidocaine, Bupivacaine and dexamethasone. Occasionally urine drug screen is needed to verify patient's compliance with our office pain contract. This is ordered based off specific treatments related to chronic pain with the potential to abuse certain medications.
== END 2024-08-30 23:59 | disposition home or self-care (01) ==
PROVIDERS: PCP Family Medicine; Visit Provider Nurse Practitioner Family
DX: M51.16 Intervertebral disc disorders with radiculopathy, lumbar region (principal)
CPT/HCPCS: 99212; G0463

== ENCOUNTER 2024-10-20 12:44 | Outpatient (CLI) | payer MEDICARE, MEDICAID, SELFPAY ==
--- OUTSIDE RECORDS SUMMARY | 2024-08-25 20:15 | XMS_ITS | Encounter Summary ---
Author Organization Healthcare Address [address] [place] [address] Care Team Providers Care Benefits Manager Name Role Phone Arben Rao MD Primary Care Provider [phone] Adeola Camara MD Unavailable Reason for Visit * Other Medical (Routine) - Closed Specialty Diagnoses / Procedures Referred By Contcha sorto Referred To Contact Sleep Medicine Diagnoses Snoring History of sleep apnea At risk for central sleep apnea Excessive daytime sleepiness Severe obesity (BMI >= 40) (CMS/[facility]) Procedures Adult Sleep Study Overnight Polysomnography Rosita Sutton APRN [address] [place] [address] Phone: tel: fax: Referral ID Status Reason Start Date Expiration Date V isits Requested Visits Authorized [id number] Closed Specialty Services Required 07/23/2024 01/22/2026 1 1 Encounter Details Date Type Department Care Team (Late st Contact Info) Description 08/25/2024 8:15 PM EDT Clinical Support [facility] [address] [place] [address] David Gupta Snoring; History of sleep apnea; At risk for central sleep apnea; Excessive daytime sleepiness; Severe obesity (BMI >= 40) (CMS/HCC) Social History Tobacco Use Types Packs/Day Years Used Date Smoking Tobacco: Never Smokeless Tobacco: Never Alcohol Use Standard Drinks/Week Comments Never 0 (1 standard drink = 0.6 oz pur e alcohol) Comments Unknown Sex and Gender Information Value Date Recorded Sex Assigned at Female 08/15/2022 9:25 PM EDT Legal Sex Female 7:46 PM EDT Gender Identity Female 08/15/2022 9:25 PM EDT Sexual Orientation Not on file documented as of this encounter Last Filed Vital Signs Vital Sign Reading Time Taken Comments Blood Pressure - - Pulse - - Temperature - - Respiratory Rate - - Oxygen Saturation - - Inhaled Oxygen Concentration - - Weight 107 kg (235 lb) 08/25/2024 7:49 PM EDT Height 149.9 cm (4' 11 ) 08/25/2024 7:49 PM EDT Body Mass Index 47.46 08/25/2024 7:49 PM EDT documented in this encounter Miscellaneous Notes * Patient Instructions - David Gupta - 08/25/2024 8:15 PM EDT Thank you for allowing us to care for you during your overnight stay. You should expect to hear from staff within the next 7-10 business days regarding your results. If you have any questions or concerns, please contact us during normal business hours: Friday-Friday 8:00AM -4:30 PM, . We thank you for giving us the opportunity to take care of you! documented in this encounter Plan of Treatment Not on file documented as of this encounter Procedures Procedure Name Priority Date/Time Associated Diagnosis Comments ADULT SLEEP STUDY OVERNIGHT POLYSOMNOGRAPHY Routine 08/25/2024 8:49 PM EDT Snoring History of sleep apnea At risk for central sleep apnea Excessive daytime sleepiness Severe obesity (BMI >= 40) (CMS/[facility]) documented in this encounter Results * Adult Sleep Study Overnight Polysomnography (08/25/2024 8:49 PM EDT) 08/25/2024 8:49 PM EDT Narrative [facility] - 09/01/2024 3:57 PM EDT General Information:See Media Viewer for report. This statement produced by Interface. us Roista Sutton COLD TYPE COMPOSING MACHINE OPERATOR SLEEP CENTER ORDERABLES Final Result [facility] documented in this encounter Visit Diagnoses Diagnosis Snoring Other dyspnea and respiratory abnormality History of sleep apnea At risk for central sleep apnea Excessive daytime sleepiness Severe obesity (BMI >= 40) (CMS/HCC) documented in this encounter Additional Health Concerns Assessment Noted Time A fall risk assessment has been complete d for the patient 08/25/2024 7:49 PM EDT A Body Mass Index follow-up plan has been documented for the patient 08/26/2024 5:04 AM EDT documented as of this encounter Care Teams Benefits Manager Relationship Specialty Start Date End Date Arben Rao MD [address] [place] [id number] PCP - General 09/04/21 Adeola Camara MD [address] [facility] [address] [place] [address] Surgeon Neurosurgery 09/04/21 documented as of this encounter
[2024-10-20 19:35] LABS: Hematocrit 41.1 % (37.0-47.0); Hemoglobin 13.4 g/dL (12.2-16.2); Immature Granulocytes % 0.2 %; Mean Corpuscular HGB Conc 32.6 g/dL (31.8-35.4); Mean Corpuscular Hemoglobin 31.0 pg (27.0-31.2); Mean Corpuscular Volume 95.1 fl (81-99); Nucleated Red Blood Cells % 0 %; Platelet Count 260 K/mm3 (142-424); Red Blood Count 4.32 M/mm3 (4.20-5.40); Red Cell Distribution Width-SD 42.0 fL; White Blood Count 6.4 K/mm3 (4.8-10.8)
[2024-10-20 20:11] LABS: Alanine Aminotransferase 23 U/L (12-78); Albumin Level 4.2 g/dl (3.5-5.0); Albumin/Globulin Ratio 1.8 (1.1-1.8); Alkaline Phosphatase 61 U/L (38-126); Anion Gap 8.5 mEq/L (5-15); Aspartate Amino Transferase 27 U/L (14-36); Bilirubin,Total 0.7 mg/dl (0.2-1.3); Blood Urea Nitrogen 11 mg/dl (7-17); Calcium 9.8 mg/dl (8.4-10.2); Carbon Dioxide 29 mmol/L (22.0-30.0); Chloride 105 mmol/L (98-107); Creatinine,Serum 0.90 mg/dl (0.52-1.04); Estimated Glomerular Filt Rate 65 ml/min (>60); GFR (African American) 79 ML/MIN (>60); Globulin 2.3 g/dL (1.3-3.2); Glucose 97 mg/dl (74-100); Potassium 4.5 mmoL/L (3.5-5.1); Sodium 138 mmol/L (136-145); Total Protein,Serum 6.5 g/dl (6.3-8.2)
--- OUTSIDE RECORDS SUMMARY | 2024-10-25 12:48 | XMS_ITS | Encounter Summary ---
Author Organization [employer] ([place], [place], [place], [place]) Address [address] [place] [address] Care Team Providers Care Roof Shingler Name Role Phone Manuel Bingham MD Primary Care Provider + Encounter Details Date Type Department Care Team (Late st Contact Info) Description 05/27/2019 Transcribed Document [facility] [place] [address] [place] [address] ProviderJohn MD [address] [place] [address] Social History Tobacco Use Types Packs/Day Years Used Date Smoking Tobacco: Never Assessed Comments Unknown Sex and Gender Information Value Date Recorded Sex Assigned at Not on file Legal Sex Female 4:40 PM CDT Gender Identity Not on file Sexual Orientation Not on file documented as of this encounter Miscellaneous Notes * Cerner Conversion Note - Historical ProviderMD - 05/27/2019 6:13 PM 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 Conversion Bin Piler Cerner at 07/15/2022 8:09 AM CDT documented in this encounter Plan of Treatment Not on file documented as of this encounter Visit Diagnoses Not on filedocumented in this encounter Care Teams Roof Shingler Relationship Specialty Start Date End Date Manuel Bingham MD [address] [place] [address] PCP - General Family Medicine 07/31/24 documented as of this encounter
--- OUTSIDE RECORDS SUMMARY | 2024-10-25 12:48 | XMS_ITS | Encounter Summary ---
Author Organization [employer] ([place], [place], [place], [place]) [address] [place] [address] Care Team Providers Care Combination Machine Tool Operator Name Role Phone Manuel Bingham MD Primary Care Provider + Encounter Details Date Type Department Care Team (Late st Contact Info) Description 02/28/2020 Transcribed Document [facility] [place] Family Medicine [facility] [place] [address] ProviderJohn MD [address] [place], [place] [id number] Social History Tobacco Use Types Packs/Day Years Used Date Smoking Tobacco: Never Assessed Comments Unknown Sex and Gender Information Value Date Recorded Sex Assigned at Not on file Legal Sex Female 4:40 PM CDT Gender Identity Not on file Sexual Orientation Not on file documented as of this encounter Miscellaneous Notes * Cerner Conversion Note - Historical MD Monika - 02/28/2020 2:04 AM GEM STONE CUTTER Patient: JESSICA SAWYER Age: 49 years Sex: Female : 1970 Associated Diagnoses: COVID-19; Fever; Cough; Viral pneumonia Author: JONATAN GASPAR MD-EMR Basic Information Additional information: Chief Complaint from Nursing Triage Note : Chief Complaint 02/27/2020 21:43 EST Chief Complaint c/o can't have the fever to break, coughing and had mucus with blood in it. Patient has been taking advil at home- LD dose at 1900. Temp was 102.7 F at 1900. Pain in chest at 8/10- probably from coughing per patient. . History of Present Illness Patient is a 49-year-old female with history of CHF unknown EF presenting with positive Covid and coughing up blood. Patient states she tested +3 days ago for Covid. Patient was discharged at that time. Patient states she is continued to have shortness of breath and coughing. Patient endorses some chest pain. She states she has been coughing up sputum with blood present. Patient denies any other past medical history or allergies. Patient endorses persistent fever. Review of Systems Constitutional symptoms: No fever, no chills. Skin symptoms: No jaundice, ENMT symptoms: No sore throat, Respiratory symptoms: Shortness of breath, cough, hemoptysis, sputum production. Cardiovascular symptoms: Chest pain. Gastrointestinal symptoms: No abdominal pain, no nausea, no vomiting. Musculoskeletal symptoms: No back pain, Neurologic symptoms: No headache, Endocrine symptoms: No polyuria, Health Status Allergies: Allergic Reactions (Selected) No Known Medication Allergies. Medications: (Selected) Prescriptions Prescribed albuterol CFC free 90 mcg/inh inhalation aerosol with adapter: 2 Puff, Inhalation, QID, 1 Each, 0 Refill(s) Documented Medications Documented Bumex: 2 mg, Oral, BID, 0 Refill(s) aspirin 81 mg oral tablet: 1 Tab, Oral, Daily, 30 Tab, 0 Refill(s) bisoprolol 5 mg oral tablet: 1 Tab, Oral, Daily, 15 Tab, 0 Refill(s) estradiol: 1 mg, Oral, Daily, 0 Refill(s) spironolactone 100 mg oral tablet: 1 Tab, Oral, Daily, 0 Refill(s). Past Medical/ Family/ Social History Surgical history: heart cath. Endometrial Ablation. Cholecystectomy; (09917). colonoscopy. d&c. right carpal tunnel and right elbow. tubal. x2. needle biopsy in left breast.. Family history: No family history items have been selected or recorded.. Social history: Social & Psychosocial Habits Alcohol 12/22/2015 Alcohol Use History, Social Habits No Substance Abuse 12/22/2015 Recreational Drug Use History No Tobacco 12/22/2015 Smoking Status Never smoker . Problem list: Active Problems (6) Anxiety CHF (congestive heart failure) Endometriosis HTN S/P cholecystectomy S/P hysterectomy . Physical Examination Vital Signs Vital Signs/Vital Measures 02/27/2020 21:43 EST Blood Pressure Location Arm, right upper Blood Pressure Source Non-Invasive BP Device Systolic Blood Pressure 117 mmHg Diastolic Blood Pressure 68 mmHg Temperature Source Oral Temperature Mode Fahrenheit Temperature, Fahrenheit 98.4 Deg F Clinical Temperature, C 36.9 Deg C Peripheral Pulse Rate 111 bpm HI Respiratory Rate 16 Breaths/Min Oxygen Saturation 94 % Oxygen Therapy Mode Room air . Measurements 02/27/2020 21:43 EST Height Source Measured Height Entry Format [place] Height/Length, [place]ET[place]ESE (ft) 4 ft Height/Length VI[place] 11 Inch CLINICALHEIGHT 149.86 cm Springer Body Weight 42.87 kg Weight Source, ED Standing scale Weight Entry Format [place] Weight Egyptian lb 190 lb CLINICALWEIGHT 86.36 kg Body Surface Area (BSA) 1.81 m2 Body Mass Index 38.5 kg/m2 HI . Oxygen Saturation 02/27/2020 21:43 EST Oxygen Saturation 94 % . General: Alert, no acute distress. Skin: Warm, no rash, normal for ethnicity. Head: Normocephalic. Neck: Supple. Eye: Extraocular movements are intact, normal conjunctiva, Sclera. Ears, nose, mouth and throat: Oral mucosa moist. Cardiovascular: Regular rate and rhythm, No murmur, Normal peripheral perfusion, No edema. Respiratory: Respirations are non-labored, breath sounds are equal, Breath sounds: Left, base(s), rhonchi present. Chest wall: No tenderness. Back: Nontender. Gastrointestinal: Soft, Nontender, Non distended, Normal bowel sounds. Neurological: Alert and oriented to person, place, time, and situation, No focal neurological deficit observed. Lymphatics: No lymphadenopathy. Psychiatric: Cooperative. Medical Decision Making Differential Diagnosis:: Bronchitis, upper respiratory infection, asthma, pneumonia, pulmonary embolism, COVID PNA. Documents reviewed: Emergency department nurses' notes. Results review: Lab results : Lab Results 02/27/2020 22:20 EST Sodium Level 140 mmol/L Potassium Level 3.2 mmol/L LOW Chloride Level 110 mmol/L Carbon Dioxide Level 25 mmol/L Anion Gap 8 LOW Glucose Level 91 mg/dL Blood Urea Nitrogen 14 mg/dL Creatinine Level 0.88 mg/dL eGFR >60 mL/min/1.73m2 eGFR NonAfrican >60 mL/min/1.73m2 Bun/Creatinine 15.9 Calcium Level 8.8 mg/dL Protein Total 7.1 Gram/dL Albumin Level 3.1 Gram/dL LOW Globulin 4.0 Gram/dL A/G Ratio 0.8 LOW Bilirubin Total 0.3 mg/dL Alk Phos 79 Units/Liter AST 16 Units/Liter ALT 16 Units/Liter CRP 7.5 mg/dL HI Lactic Acid Level 1.1 mmol/L WBC 4.9 K/uL RBC 4.10 Million/uL Hgb 13.3 Gram/dL Hct 37.9 % MCV 92.4 fL MCH 32.4 pg HI MCHC 35.1 Gram/dL Platelet Count 177 K/uL MPV 11.1 fL RDW 12.0 % Neut % 70.5 % Neut # 3.46 K/uL Lymph % 24.2 % Lymph # 1.19 K/uL [place] % 4.9 % [place] # 0.24 K/uL Eos % 0.0 % LOW Eos # 0.00 K/uL LOW Baso % 0.2 % Baso # 0.01 K/uL Slide Review No IG# 0 x10(3)/uL IG% 0 % PT 10.2 Second(s) INR 1.0 PTT 30.7 Second(s) D Dimer Quant 694 ng/mL HI HCG Serum Quant 6.0 mIU/mL NA Procalcitonin <0.05 ng/mL . Notes: Preliminary Report NAME: JESSICA SAWYER / SEX: 1970 / Female MRN / ACC#: [id number] / [id number] ORDERING PHYSICIAN: Ordering Provider, Update EXAM REQUESTED: [id number]--RIM CHEST FACILITY: [facility] DATE: 02/28/2020 RADIOLOGIST NAME: Vaughn Saravia CLINICAL HISTORY: . soa FINDINGS: There is moderate left lower lobe infiltrate and scattered small peripheral right upper lobe, right middle lobe and right lower lobe infiltrates compatible with viral pneumonia. No evidence of pulmonary embolism. Signed by Vaughn Saravia on 02/28/2020 1:49:47 AM, Eastern Time. Reexamination/ Reevaluation Time: 02/28/2020 02:32:00 . Assessment: Patient was seen in the Dr. Schuster, earlier, patient having shortness of breath cough fever for last 4 days, was diagnosed with COVID-19 infection 3 days ago, patient complained of continued to have fever, coughing and shortness of breath, noticed blood in her sputum, patient denies any problem with her smell, had issues with taste, denies any sick contacts, patient has history of hypertension, congestive heart failure, patient BMI is 38 on examination: Vitals: see nursing note No acute distress HEENT: Atraumatic normocephalic, pupils equal round reactive to light, extraocular muscles intact Neck: supple, no lymph nodes, no JVD, no meningeal signs Respiratory: Bilateral decreased air entry, no rhonchi, wheezing or rales CVS: Normal S1 and S2 no murmur gallop or rub Abdomen: soft, no tenderness, no guarding, bowel sounds present, no organs felt Back: No swelling, no redness, no tenderness, range of motion is full Extremities: No swelling, no redness, no tenderness, no signs of DVT Skin: No rash, no cyanosis, capillary refill brisk BOOK OR SCRIPT EDITOR: Awake alert oriented ??4, nonfocal exam Psych: Normal mood and affect. Interventions. Notes: Discussed with patient her labs, CT results, no PE, patient is not hypoxic, does not need to be hospitalized, patient BMI is more than 35, he is a candidate for Bamlanivimab, I explained to the patient about this medication, risk and benefits, side effects, gave her the fact sheet, and discussed with her alternatives, explained to her that it is an unimproved drug, and has under an emergency use catheterization, uncertain patient's all questions, patient does want to have the medication. Prior to administering Bamlanivimab, the patient/caregiver was: a. Given the Fact Sheet for Patients, Parents, and Caregivers , b. Informed of alternatives to receiving authorized Bamlanivimab, and c. Informed that Bamlanivimab is an unapproved drug that is authorized for use under an Emergency Use Authorization. . Time: 02/28/2020 05:09:00 . Course: improving. Assessment: exam unchanged. Notes: Patient finished Bamlanivimab infusion, no side effects or problems with it, patient is being watched for another hour after the infusion is over for monitoring of possible side effects. Time: 02/28/2020 05:31:00 . Course: improving. Assessment: exam unchanged. Notes: No new symptoms. d/w pt. results of the diagnostics done in the ED, differential diagnoses of symptoms, advised follow up with PCP for further evaluation and treatment, return to ER if symptoms worsen. Pt. was given specific instructions to return to the Emergency Department.. Impression and Plan Diagnosis COVID-19 - Discharge, Medical Complaint of Fever - Reason For Visit, Emergency medicine, Medical Complaint of Cough - Reason For Visit, Emergency medicine, Medical Viral pneumonia - Discharge, Emergency medicine, Medical bhcg was 6.0 s/p hysterectomy Plan Condition: Improved, Stable. Disposition: Discharged Admit/Transfer/Discharge: Discharge (Order): Start: 02/28/2020 5:31 EST, Discharge to: Home. Patient was given the following educational materials: COVID-19 Frequently Asked Questions, COVID-19: How to Protect Yourself and Others - CDC, [facility] COVID-19 Discharge Education (CUSTOM), [facility] COVID-19 Patient Education Overview and Infographic (Egyptian) (CUSTOM), Prevent the Spread of COVID-19 if You Are Sick - [facility]. Follow up with: ; [place] Within 2 to 3 days; Follow-up with Patient Resource Emergency Response Technician at [phone] in 2 to 3 days Within 2 to 3 days; Return to emergency department Within As needed Return if condition worsens, if you have high fever, vomiting, worsening of shortness of breath, fainting, etc. Make sure you follow-up with the primary care physician for further evaluation and management of your symptoms. Self quarantine as discussed with you and gave you written instructions.. Counseled: Patient, Family, Regarding diagnosis, Regarding diagnostic results, Regarding treatment plan, Regarding prescription, Patient indicated understanding of instructions. documented in this encounter Plan of Treatment Not on file documented as of this encounter Visit Diagnoses Not on filedocumented in this encounter Care Teams Combination Machine Tool Operator Relationship Specialty Start Date End Date Manuel Bingham MD [address] [place] [id number] PCP - General Family Medicine 07/31/24 documented as of this encounter
--- OUTSIDE RECORDS SUMMARY | 2024-10-25 12:48 | XMS_ITS | Clinical Summary ---
Author Organization [facility] Address [address] [place] [address] Care Team Providers Care Accounting File Clerk Name Role Phone Juan M Manjinder Styles DO Primary Care Provider [phone] Allergies No known active allergies Medications aspirin 81 MG EC tablet Take 1 tablet by mouth Daily. Active atorvastatin (LIPITOR) 10 MG tablet Take 1 tablet by mouth Every Night. 08/20/2022 Active bumetanide (BUMEX) 2 MG tablet Take 1 tablet by mouth 2 (Two) Times a Day. 09/06/2022 Active clonazePAM (KlonoPIN) 0.5 MG tablet Take 1 tablet by mouth At Night As Needed. 07/17/2022 Active escitalopram (LEXAPRO) 10 MG tablet Take 1 tablet by mouth Daily. 07/23/2022 Active estradiol (ESTRACE) 1 MG tablet Take 1 tablet by mouth Daily. 06/17/2022 Active spironolactone (ALDACTONE) 100 MG tablet Take 1 tablet by mouth Daily. 08/08/2022 Active ALBUTEROL IN Inhale 90 mcg Every 4 (Four) Hours. Active ALBUTEROL SULFATE IN Inhale. Active bisoprolol (ZEBeta) 5 MG tablet Take 1 tablet by mouth Daily. Active omeprazole (priLOSEC) 40 MG capsule Take 1 capsule by mouth Daily. Active ticagrelor (BRILINTA) 90 MG tablet tablet Take 1 tablet by mouth 2 (Two) Times a Day. Active traZODone (DESYREL) 50 MG tablet Take 1 tablet by mouth Every Night. Active Active Problems Problem Noted Date Diagnosed Date Neck pain 09/16/2022 Chronic low back pain without sciatica 3 Family History Medical History Relation Name Comments Anxiety disorder Father Nick Depression Father Nick Developmental Disability Father Nick Mental illness Father Nick COPD Mother Carmela Cancer Mother Carmela Lung,colon,live r Vision loss Mother Carmela Asthma Son Augustin Relation Name Status Comments Father Nick Mother Carmela Son Augustin Social History Tobacco Use Types Packs/Day Years Used Date Smoking Tobacco: Never Smokeless Tobacco: Never Alcohol Use Standard Drinks/Week Comments Never 0 (1 standard drink = 0.6 oz pur e alcohol) Abuse Screen Answer Date Recorded Unsafe at Home or Work/School Not on file Feels Threatened by Someone? Not on file 12/2022 Does Anyone Keep You from Co ntacting Others or Doint Things Outside the Home? Not on file 01/07/2023 Physical Sign of Abuse Present Not on file 1 Housing Stability Answer Date Recorded Current Living Arrangements Not on file 12/29 Potentially Unsafe Housing Conditions Not on elizabet e 01/07/2023 Family and Community Support Answer Miguel Angel e Recorded Help with Day-to-Day Activities Not on file 01/07/2023 Lonely or Isolated Not on file 01/07/2023 Employment Answer Date Recorded Do you want help finding or keeping work or a renée b? Not on file 01/07/2023 Disabilities Answer Date Recorded Concentrating, Remembering, or Making Decisions Difficulty Not on file 01/07/2023 Doing Errands Independently Difficulty Not on fi le 01/07/2023 Education Answer Date Recorded Help with school or training? Not on file Preferred Language Not on file 01/07/2023 Comments Unknown Sex and Gender Information Value Date Recorded Sex Assigned at Not on file Legal Sex Female 1:41 PM EDT Gender Identity Not on file Sexual Orientation Not on file Last Filed Vital Signs Vital Sign Reading Time Taken Comments Blood Pressure 118/81 09/16/2022 9:48 AM EDT Pulse - - Temperature 36.5 C (97.7 F) 09/16/2022 9:48 AM EDT Respiratory Rate - - Oxygen Saturation - - Inhaled Oxygen Concentration - - Weight 104 kg (230 lb) 09/16/2022 9:48 AM EDT Height 149.9 cm (4' 11 ) 09/16/2022 9:48 AM EDT Body Mass Index 46.45 09/16/2022 9:48 AM EDT Plan of Treatment Upcoming Encounters Date Type Department Care Team (Late st Contact Info) Description 12/16/2024 9:30 AM EDT Office Visit [facility] PULMONARY & CRITICAL CARE MEDICINE [address] [facility] [address] [place] [address] 12/16/2024 10:00 AM EDT Office Visit [facility] PULMONARY & CRITICAL CARE MEDICINE [address] [facility] [address] [place] [address] Manjinder Sauceda MD [address] [place] [address] 12/16/2024 11:00 AM EDT Office Visit [facility] OBGYN [address] [place] [address] Manjinder Franklin MD [address] [facility] [address] [place] [address] Health Maintenance Due Date Last Done Comments Annual Gynecologic Pelvic and Breast Exam 1970 MAMMOGRAM 2010 COLOGUARD 10/18/2015 COLON CANCER SCREENING 5 YEA R SIGMOIDOSCOPY 10/18/2015 COLONOSCOPY 10/18/2015 COLORECTAL CANCER SCREENING 10/18/2015 CT COLONOGRAPHY 10/18/2015 FECAL OCCULT BLOOD TEST 10/18/2015 FIT Testing (1 year) 10/18/2015 TDAP/TD VACCINES (2 - Td or Tdap) 05/08/2016 007 Pneumococcal Vaccine 50+ (1 of 1 - PCV) 2020 ZOSTER VACCINE (1 of 2) 2020 ANNUAL WELLNESS VISIT 09/16/2022 HEPATITIS C SCREENING 09/16/2022 COVID-19 Vaccine ( - season) 2023 INFLUENZA VACCINE 12/29/2024 01/23/2022, 01/05/2021 Procedures Procedure Name Priority Date/Time Associated Diagnosis Comments SCANNED - LABS 08/30/2024 from Last 3 Months Results * LABS SCANNED (08/30/2024) Manuel Bingham MD LAB BLOOD ORDERABLES Final Result from Last 3 Months Insurance [facility] MEDICARE ADVANTAGE HMO MEDICARE A & B Care Teams Accounting File Clerk Relationship Specialty Start Date End Date Manjinder Mcgowan DO [address] [place] [address] [address] [place] [address] PCP - General Internal Medicine 06/08/24
--- OUTSIDE RECORDS SUMMARY | 2024-10-25 12:48 | XMS_ITS | Encounter Summary ---
Author Organization [employer] ([place], [place], [place], [place]) Address [address] [place] [address] Care Team Providers Care Postal Sorting Officer Name Role Phone Manuel Bingham MD Primary Care Provider + Encounter Details Date Type Department Care Team (Late st Contact Info) Description 05/27/2019 Transcribed Document [facility] [place] Family Medicine [address] [place] [address] ProviderJohn MD [address] [place] [address] Social History Tobacco Use Types Packs/Day Years Used Date Smoking Tobacco: Never Assessed Comments Unknown Sex and Gender Information Value Date Recorded Sex Assigned at Not on file Legal Sex Female 4:40 PM CDT Gender Identity Not on file Sexual Orientation Not on file documented as of this encounter Miscellaneous Notes * Cerner Conversion Note - John ProviderMD - 05/27/2019 9:29 PM [facility] ED Discharge Entered On: 05/27/2019 21:29 EST Performed On: 05/27/2019 21:29 EST by JUDIE CELIS RN Discharge Process Patient Disposition : Discharge Personal Belongings With Patient : Yes Patient Education Completed : Yes Teaching Evaluation : Verbalizes understanding IV Discontinued : Not applicable Nursing Documentation Completed : Yes JUDIE CELIS RN - 05/27/2019 21:29 EST ED Discharge Discharge To : Home with ambulatory/outpatient follow-up Mode Of Departure : Private vehicle Accompanied By : Unaccompanied Discharge Instructions Reviewed With, Opportunity For Questions Given : Patient JUDIE CELIS RN - 05/27/2019 21:29 EST Electronically signed by Sana, [facility] Conversion Applique Cutter Cerner at 07/15/2022 8:13 AM CDT documented in this encounter Plan of Treatment Not on file documented as of this encounter Visit Diagnoses Not on filedocumented in this encounter Care Teams Postal Sorting Officer Relationship Specialty Start Date End Date Manuel Bingham MD [address] [place] [address] PCP - General Family Medicine 07/31/24 documented as of this encounter
--- OUTSIDE RECORDS SUMMARY | 2024-10-25 12:48 | XMS_ITS | Encounter Summary ---
Author Organization [employer] ([place], [place], [place], [place]) Address [address] [place] [address] Care Team Providers Care Portfolio Architect Name Role Phone Manuel Bingham MD Primary Care Provider + Encounter Details Date Type Department Care Team (Late st Contact Info) Description 08/24/2021 Transcribed Document [facility] [place] [facility] [place] [address] ProviderJohn MD [address] [place] [address] Social History Tobacco Use Types Packs/Day Years Used Date Smoking Tobacco: Never Assessed Comments Unknown Sex and Gender Information Value Date Recorded Sex Assigned at Not on file Legal Sex Female 4:40 PM CDT Gender Identity Not on file Sexual Orientation Not on file documented as of this encounter Miscellaneous Notes * Cerner Conversion Note - Historical ProviderMD - 08/24/2021 12:14 PM CDT Patient: JESSICA SAWYER Age: 50 Years Sex: Female : 1970 Neuropsychological screening evaluation History of presenting problem: Jessica Sawyer, a 50-year-old female, was referred for a neuropsychological screening evaluation by Sweta Lion DO to document the extent of any presenting neurocognitive deficits and to assist with treatment planning. Her medical history is significant for COVID-19 infection in January, with subsequent cognitive changes, obstructive sleep apnea, anxiety and depression. At the time of today???s evaluation, Ms. Sawyer reported a history of progressively worsening short-term memory loss, difficulty concentrating and slowed processing of information since COVID-19 infection. She reported a history of anxiety and depression since COVID-19 infection. She reported a longstanding history of difficulty initiating and maintaining sleep. She is compliant with CPAP therapy for JANAE; however, at this time, she has not been utilizing her CPAP due to a recall. Psychosocial: Ms. Sawyer was not born prematurely. She met all developmental milestones on time. She reported difficulty learning in school. She denied problems with inattention or hyperactivity in childhood. She denied a history of adverse childhood experiences. Ms. Sawyer graduated high school. 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 She is single with two children. She was previously , although she did not recall when she or how long she has been . Ms. Sawyer currently attends outpatient counseling and she receives psychopharmacological intervention at an unspecified clinic in [place]. She referred to her therapist as, ??? Suresh.?? She denied current suicidal ideation, plan or intent. She denied prior suicidal attempts. Ms. Sawyer denied a history of substance or tobacco abuse. Her current medications include Albuterol, Aripiprazole, Aspirin, Bisoprolol, Bumetanide, Citrucel, Estradiol, Metoclopramide, MiraLax, Omeprazole, Prazosin, Spironolactone, Symbicort, and Trazodone. Behavioral observations: Ms. Sawyer was cooperative throughout the evaluation. Her affect was flat. She completed all tasks asked of her. She was distractible at times. Rapport was established. Tests administered: Brody 15 Item Memory Test (Recall and Recognition Trials) Repeatable battery for the assessment of neuropsychological status-update (RBANS-U) Clock drawing test Patient health questionnaire-9 (PHQ-9) Generalized anxiety disorder questionnaire-7 (BYRON-7) Assessment results: Cognitive effort: Results on the Brody 15 Item Memory test revealed less than optimal cognitive effort. Mental Status: Ms. Sawyer was mostly oriented to person (i.e. name and birthday). She was unable to identify her correct age. She was disoriented to place and time. She reported the date to be Sunday, July 14, 2019 (i.e. the correct date is Sunday, August 22, 2021). Ms. Sawyer was unaware that she was in [place] for the assessment. She stated she was currently in [place]. She was aware of the current commercial lending vice president. She was able to tell me her address, although she provided me with the incorrect zip code. Ms. Sawyer was unable to accurately draw a clock today. She was able to draw a circular figure; however, she did not place the correct numbers in the clock. Although she placed hands on the clock, she was unable to represent a specific time on the clock. There was profound visuospatial disorganization, along with poor planning and executive dysfunction. Neurocognitive functioning: Ms. Sawyer???s total score on the RBANS fell within the extremely low range, which indicates poor overall neurocognitive functioning (less than 1st percentile). She obtained an extremely low score on a measure of verbal immediate memory (less than 1st percentile), which indicates inefficient verbal learning and encoding. Overall delayed memory functions were extremely low, including both verbal and visual delayed memory (less than 1st percentile). Verbal recognition memory was extremely low. Expressive language functions were extremely low (less than 1st percentile). Specifically, word retrieval was extremely low, as was verbal fluency (i.e. semantic or categorical). Visual attention, scanning and processing speed was extremely low. Auditory attention was extremely low. Ms. Sawyer???s visual perception was extremely low. Visuoconstructional abilities were extremely low. Emotional Functioning: On a screening measure for depression (PHQ-9), Ms. Sawyer obtained a score consistent with mild depression during the past 2 weeks (12/25). She reported feeling down, depressed or hopeless, fatigue and trouble concentrating several days during the past 2 weeks. She reported a loss of interest or pleasure in activities she used to enjoy, sleep disturbance and restlessness more than half the days during the past 2 weeks. Ms. Sawyer denied thoughts she would be better off during the past 2 weeks, or thoughts of self-harm. On a screening measure for anxiety (BYRON-7), Ms. Sawyer obtained a score consistent with mild anxiety during the past 2 weeks (12/19). She reported worrying too much about different things, feeling nervous, anxious or on edge, and difficulty controlling worry several days during the past 2 weeks. She reported irritability more than half the days during the past 2 weeks. She reported trouble relaxing nearly every day during the past 2 weeks. Summary of Cognitive Testing: Ms. Sawyer was referred for a neurocognitive evaluation to document the extent and severity of any cognitive dysfunction to aid in diagnosis and treatment planning. She provided less than optimal cognitive effort during today???s evaluation; thus, test results should be interpreted with some caution. In regard to the RBANS, Ms. Sawyer???s subtests all fell within the extremely low range. Learning, memory, visuoconstructive ability, visual perception, verbal (i.e. semantic) fluency, word retrieval, auditory attention and processing speed were all below the 1st percentile. On self-report measures for emotional functioning, Ms. Sawyer reported mild anxiety and depression the past 2 week. Impression: Ms. Sawyer???s current neurocognitive profile is consistent with significant deficits across all cognitive domains (i.e. learning, memory, visuoconstructive ability, visual perception, verbal (i.e. semantic) fluency, word retrieval, auditory attention and processing speed). Given her less than optimal cognitive effort, it is unfortunate, but I am unable to determine the extent of her cognitive deficits at this time. Recommendations: 1. It is recommended that Ms. Sawyer undergo a re-evaluation in six months to one year for a cognitive re-evaluation. Per review of records from previous cognitive testing, she has provided less than optimal cognitive effort on two of two neuropsychological assessments. 2. Ms. Sawyer should continue psychopharmacological therapy to manage symptoms of anxiety and depression. This note was dictated using [employer] voice recognition software. Cc: Sweta Lion D.O. Electronically signed by Sana [facility] Conversion Roll Up Machine Operator Cerner at 07/15/2022 8:24 AM CDT documented in this encounter Plan of Treatment Not on file documented as of this encounter Visit Diagnoses Not on filedocumented in this encounter Care Teams Portfolio Architect Relationship Specialty Start Date End Date Manuel Bingham MD [address] [place] [address] PCP - General Family Medicine 07/31/24 documented as of this encounter
--- OUTSIDE RECORDS SUMMARY | 2024-10-25 12:48 | XMS_ITS | Encounter Summary ---
Author Organization [employer] ([place], [place], [place], [place]) Address [address] [place] [address] Care Team Providers Care Nursing Techn Name Role Phone Manuel Bingham MD Primary Care Provider + Encounter Details Date Type Department Care Team (Late st Contact Info) Description 05/27/2019 Transcribed Document [facility] Radiology [address] [place] [address] Devyn Gross MD [address] [place] [address] Dept. [place] [address] Social History Tobacco Use Types Packs/Day Years Used Date Smoking Tobacco: Never Assessed Comments Unknown Sex and Gender Information Value Date Recorded Sex Assigned at Not on file Legal Sex Female 4:40 PM CDT Gender Identity Not on file Sexual Orientation Not on file documented as of this encounter Miscellaneous Notes * Cerner Conversion Note - Devyn Gross MD - 05/27/2019 9:16 PM EST Patient: JESSICA SAWYER Age: 48 years Sex: Female : 1970 Associated Diagnoses: Acute pharyngitis; Fever Author: SHEELA FALL PA-C Basic Information Additional information: Chief Complaint from Nursing Triage Note : Chief Complaint 05/27/2019 18:33 EST Chief Complaint Pt c/o sore throat, fever that started last night, took tylenol and motrin @ 3pm today. . History of Present Illness The patient presents with sore throat. The onset was 1 days ago. The course/duration of symptoms is constant. Location: Pharynx throat. The character of symptoms is pain and swelling. The degree at present is moderate. The exacerbating factor is swallowing. The relieving factor is none. Risk factors consist of CHF - but not in an exacerbation now. Patient states she is breathing well and not swollen. Takes a fluid pill but can't remember which one.. Prior episodes: none. Therapy today: over the counter medications including tylenol, ibuprofen . Associated symptoms: fever, chills, denies cough, denies rhinorrhea and denies nasal congestion. Additional history: patient states that she's had multiple sore throat infections lately, not usually positive for strep, but this time it's the worst it's been. She has not seen ENT or a specialist. . Review of Systems Constitutional symptoms: Negative except as documented in HPI. Skin symptoms: Negative except as documented in HPI. Eye symptoms: Negative except as documented in HPI. ENMT symptoms: Negative except as documented in HPI. Respiratory symptoms: Negative except as documented in HPI. Cardiovascular symptoms: Negative except as documented in HPI. Gastrointestinal symptoms: Negative except as documented in HPI. Genitourinary symptoms Musculoskeletal symptoms: Negative except as documented in HPI. Neurologic symptoms: Negative except as documented in HPI. Psychiatric symptoms: Negative except as documented in HPI. Health Status Allergies: Allergic Reactions (Selected) No Known Medication Allergies. Medications: (Selected) Prescriptions Prescribed meloxicam 7.5 mg oral tablet: 1 Tab, Oral, Daily, for 7 Day(s), 7 Tab, 0 Refill(s) Documented Medications Documented Bumex: Daily, 0 Refill(s) Premarin 0.9 mg oral tablet: 1 Tab, Oral, Daily, 30 Tab, 0 Refill(s) aspirin 81 mg oral tablet: 1 Tab, Oral, Daily, 30 Tab, 0 Refill(s) bisoprolol 5 mg oral tablet: 0.5 Tab, Oral, Daily, 15 Tab, 0 Refill(s) meloxicam 7.5 mg oral tablet: Tab, Oral, Daily, 0 Refill(s) spironolactone 100 mg oral tablet: 1 Tab, Oral, Daily, 0 Refill(s). Immunizations: Per nurse's notes. Past Medical/ Family/ Social History Medical history Reviewed as documented in chart. Surgical history: heart cath. Endometrial Ablation. Cholecystectomy; (79030). colonoscopy. d&c. right carpal tunnel and right elbow. tubal. x2. needle biopsy in left breast.. Family history: No family history items have been selected or recorded.. Social history: Social & Psychosocial Habits Alcohol 12/22/2015 Alcohol Use History, Social Habits No Substance Abuse 12/22/2015 Recreational Drug Use History No Tobacco 12/22/2015 Smoking Status Never smoker , Reviewed as documented in chart. Problem list: Active Problems (4) Anxiety Endometriosis HTN S/P hysterectomy , per nurse's notes. Physical Examination Vital Signs Vital Signs/Vital Measures 05/27/2019 18:33 EST Systolic Blood Pressure 134 mmHg Diastolic Blood Pressure 81 mmHg Temperature Source Tympanic Temperature Mode Fahrenheit Temperature, Fahrenheit 100.5 Deg F HI Clinical Temperature, C 38.1 Deg C Peripheral Pulse Rate 92 bpm Respiratory Rate 18 Breaths/Min Oxygen Saturation 95 % Oxygen Therapy Mode Room air . Measurements 05/27/2019 18:33 EST Height Source Stated Height Entry Format [place] Height/Length, CZECH (ft) 5 ft Height/Length CZECH 0 Inch CLINICALHEIGHT 152.4 cm [place] Body Weight 45.16 kg Weight Source, ED Critical estimated dosing weight Weight Entry Format [place] Weight Palestinian lb 193 lb CLINICALWEIGHT 87.73 kg Body Surface Area (BSA) 1.84 m2 Body Mass Index 37.8 kg/m2 HI . Oxygen Saturation 05/27/2019 18:33 EST Oxygen Saturation 95 % . General: Alert, mild distress. Skin: Warm, dry, intact, no rash. Eye: Normal conjunctiva, vision unchanged. Ears, nose, mouth and throat: Tympanic membranes clear, oral mucosa moist, Throat: Bilateral, tonsil, erythema, with exudate, swelling. Neck: Supple, trachea midline, mild anterior cervical tenderness and swelling. Respiratory: Lungs are clear to auscultation, respirations are non-labored. Cardiovascular: Regular rate and rhythm, No murmur. Gastrointestinal: Nontender, Non distended. Neurological: Alert and oriented to person, place, time, and situation, No focal neurological deficit observed, normal motor observed, normal speech observed, normal coordination observed. Psychiatric: Cooperative, appropriate mood & affect. Medical Decision Making Differential Diagnosis: Streptococcal pharyngitis, exudative pharyngitis, viral syndrome. Rationale: I am going to go ahead and treat patietn for strep throat because she has no cough, fever, exudative pharygitis, and lymph nodes tender. I do not want to keep her here for results. She also prefers to get a shot if she can rather than take 10 days of medicine. She has taken penicillin in the past before with no problems. , patient also mentions several recent throat infections so I am going to refer her to ENT . Results review: Lab results : Lab Results 05/27/2019 18:37 EST Group A Strep PCR Negative Group C/G Strep PCR Negative . Impression and Plan Diagnosis Acute pharyngitis - Discharge, Emergency medicine, Medical Fever - Discharge, Emergency medicine, Medical Plan Condition: Improved, Stable. Disposition: Medically cleared, Discharged Pharmacy: penicillin G benzathine (Order): 1.2 MillionUnits, IntraMuscular, 1-Time. Patient was given the following educational materials: Pharyngitis, Strep Throat. Follow up with: IRINA JEREZ Within 2 to 3 [address] Follow up with Dr. rockwell (ENT) to discuss recurrent throat infections. You tested negative for strep today but you have all of the symptoms so you have been treated with penicillin. Come back to the ER for new or worsening symptoms such as increased swelling, unable to swallow, or severe illness. Make sure you drink plenty of fluids and get lotsof rest. Stay home form work today and tomorrow. . Counseled: Patient, Regarding diagnosis, Regarding diagnostic results, Regarding treatment plan, Patient indicated understanding of instructions. documented in this encounter Plan of Treatment Not on file documented as of this encounter Visit Diagnoses Not on filedocumented in this encounter Care Teams Nursing Techn Relationship Specialty Start Date End Date Manuel Bingham MD [address] [place] [address] PCP - General Family Medicine 07/31/24 documented as of this encounter
--- OUTSIDE RECORDS SUMMARY | 2024-10-25 12:48 | XMS_ITS | Encounter Summary ---
Author Organization [email or web address] ([place], [place], [place], [place]) Address [address] [place] [address] Care Team Providers Care Credentialer Name Role Phone Manuel Bingham MD Primary Care Provider + Encounter Details Date Type Department Care Team (Late st Contact Info) Description 05/27/[address] [facility] [place] Family Medicine [address] [place] [address] ProviderJohn MD [address] [place] [address] Social History Tobacco Use Types Packs/Day Years Used Date Smoking Tobacco: Never Assessed Comments Unknown Sex and Gender Information Value Date Recorded Sex Assigned at Not on file Legal Sex Female 4:40 PM CDT Gender Identity Not on file Sexual Orientation Not on file documented as of this encounter Miscellaneous Notes * Cerner Conversion Note - John ProviderMD - 05/27/2019 9:29 PM [place] [address] JESSICA SAWYER :1970 Visit Time:05/27/2019 Your Visit Summary Your Care Team Primary Provider: SHEELA FALL PA-C Secondary Provider: Your Diagnosis Acute pharyngitis Fever Throat pain - Adult Medical Information You may obtain a copy of your Emergency Department visit from Medical Records by calling the hospital phone number listed above and asking to be directed to the Medical Records Department. If you had special tests, such as EKG???s or X-rays, the interpretation of your tests given to you by the Emergency Department Physician is a preliminary report. Some fractures and illnesses fail to show up on preliminary tests. These will be reviewed again and we will call you if there are any new suggestions. If your symptoms continue notify your physician. After you leave, you should follow the instructions provided. What to do next Follow-Up Appointments Follow Up with IRINA JEREZ When Within 2 to 3 days Comments Follow up with Dr. rockwell (ENT) to [...] Stay home form work today and tomorrow. Allergies No Known Medication Allergies Immunizations This Visit No Immunizations Found Medications What How Much When Instructions Next Dose The home medications listed are only as accurate as the information you provided. Please continue taking all of your medications prescribed by your Primary Care Provider unless specifically told to change or discontinue the medication. Please direct any questions regarding your home medications to your Primary Care Provider. Take your medications faithfully. Do NOT skip medication. Do NOT stop taking medications without the direction of a physician. Carry a list of your medications with you at all times, and take this medication list with you to your first follow up visit. Report any side effects. Avoid herbal remedies unless discussed with your physician. As part of your treatment plan, your physician may have prescribed a limited course of a controlled substance. This medication may be given to help people with moderate or severe pain or for other medical conditions, but there are risks involved with treatment. Common side effects may include nausea, constipation, drowsiness, sweating, itching, dry mouth, and rash. More serious side effects may include cognitive and motor impairment, like problems with thinking, concentrating, alertness, and movement (e.g. slowed reflexes), and driving and operating heavy machinery can be dangerous. It is important for you to talk to your physician if you have these side effects or questions. These controlled substances can produce physical dependence and be habit-forming if taken for an extended period of time, which means that the body has gotten used to them and may experience withdrawal symptoms if they are abruptly stopped. Withdrawal symptoms can include runny nose, sweating, goose bumps, diarrhea, abdominal cramping, rapid heartbeat, difficulty sleeping, and nervousness. Please dispose of unused and medications per pharmacy guidance. Test Results Laboratory or Other Results This Visit (last charted value for your 05/27/2019 visit) Molecular Testing 05/27/2019 6:37 PM Group A Strep PCR: Negative Group C/G Strep PCR: Negative [employer] Strep Throat Strep throat is a bacterial infection of the throat. Your health care provider may call the infection tonsillitis or pharyngitis, depending on whether there is swelling in the tonsils or at the back of the throat. Strep throat is most common during the cold months of the year in children who are 5???15 years of age, but it can happen during any season in people of any age. This infection is spread from person to person (contagious) through coughing, sneezing, or close contact. What are the causes? Strep throat is caused by the bacteria called Streptococcus pyogenes. What increases the risk? This condition is more likely to develop in: ??? People who spend time in crowded places where the infection can spread easily. ??? People who have close contact with someone who has strep throat. What are the signs or symptoms? Symptoms of this condition include: ??? Fever or chills. ??? Redness, swelling, or pain in the tonsils or throat. ??? Pain or difficulty when swallowing. ??? White or yellow spots on the tonsils or throat. ??? Swollen, tender glands in the neck or under the jaw. ??? Red rash all over the body (rare). How is this diagnosed? This condition is diagnosed by performing a rapid strep test or by taking a swab of your throat (throat culture test). Results from a rapid strep test are usually ready in a few minutes, but throat culture test results are available after one or two days. How is this treated? This condition is treated with antibiotic medicine. Follow these instructions at home: Medicines ??? Take [id number] and prescription medicines only as told by your health care provider. ??? Take your antibiotic as told by your health care provider. Do not stop taking the antibiotic even if you start to feel better. ??? Have family members who also have a sore throat or fever tested for strep throat. They may need antibiotics if they have the strep infection. Eating and drinking ??? Do not share food, drinking cups, or personal items that could cause the infection to spread to other people. ??? If swallowing is difficult, try eating soft foods until your sore throat feels better. ??? Drink enough fluid to keep your urine clear or pale yellow. General instructions ??? Gargle with a salt-water mixture 3???4 times per day or as needed. To make a salt-water mixture, completely dissolve ?1 tsp of salt in 1 cup of warm water. ??? Make sure that all household members wash their hands well. ??? Get plenty of rest. ??? Stay home from school or work until you have been taking antibiotics for 24 hours. ??? Keep all follow-up visits as told by your health care provider. This is important. Contact a health care provider if: ??? The glands in your neck continue to get bigger. ??? You develop a rash, cough, or earache. ??? You cough up a thick liquid that is green, yellow-brown, or bloody. ??? You have pain or discomfort that does not get better with medicine. ??? Your problems seem to be getting worse rather than better. ??? You have a fever. Get help right away if: ??? You have new symptoms, such as vomiting, severe headache, stiff or painful neck, chest pain, or shortness of breath. ??? You have severe throat pain, drooling, or changes in your voice. ??? You have swelling of the neck, or the skin on the neck becomes red and tender. ??? You have signs of dehydration, such as fatigue, dry mouth, and decreased urination. ??? You become increasingly sleepy, or you cannot wake up completely. ??? Your joints become red or painful. This information is not intended to replace advice given to you by your health care provider. Make sure you discuss any questions you have with your health care provider. Document Released: 03/14/2001 Document Revised: 11/13/2016 Document Reviewed: 07/10/2015 [employer] Interactive Patient Education ?? 2019 [employer]. Pharyngitis Pharyngitis is redness, pain, and swelling (inflammation) of the throat (pharynx). It is a very common cause of sore throat. Pharyngitis can be caused by a bacteria, but it is usually caused by a virus. Most cases of pharyngitis get better on their own without treatment. What are the causes? This condition may be caused by: ??? Infection by viruses (viral). Viral pharyngitis spreads from person to person (is contagious) through coughing, sneezing, and sharing of personal items or utensils such as cups, forks, spoons, and toothbrushes. ??? Infection by bacteria (bacterial). Bacterial pharyngitis may be spread by touching the nose or face after coming in contact with the bacteria, or through more intimate contact, such as kissing. ??? Allergies. Allergies can cause buildup of mucus in the throat (post-nasal drip), leading to inflammation and irritation. Allergies can also cause blocked nasal passages, forcing breathing through the mouth, which dries and irritates the throat. What increases the risk? You are more likely to develop this condition if: ??? You are 5???24 years old. ??? You are exposed to crowded environments such as daycare, school, or dormitory living. ??? You live in a cold climate. ??? You have a weakened disease-fighting (immune) system. What are the signs or symptoms? Symptoms of this condition vary by the cause (viral, bacterial, or allergies) and can include: ??? Sore throat. ??? Fatigue. ??? Low-grade fever. ??? Headache. ??? Joint pain and muscle aches. ??? Skin rashes. ??? Swollen glands in the throat (lymph nodes). ??? Plaque-like film on the throat or tonsils. This is often a symptom of bacterial pharyngitis. ??? Vomiting. ??? Stuffy nose (nasal congestion). ??? Cough. ??? Red, itchy eyes (conjunctivitis). ??? Loss of appetite. How is this diagnosed? This condition is often diagnosed based on your medical history and a physical exam. Your health care provider will ask you questions about your illness and your symptoms. A swab of your throat may be done to check for bacteria (rapid strep test). Other lab tests may also be done, depending on the suspected cause, but these are rare. How is this treated? This condition usually gets better in 3???4 days without medicine. Bacterial pharyngitis may be treated with antibiotic medicines. Follow these instructions at home: ??? Take qznu-kfa-zmezvtz and prescription medicines only as told by your health care provider. ? If you were prescribed an antibiotic medicine, take it as told by your health care provider. Do not stop taking the antibiotic even if you start to feel better. ? Do not give children aspirin because of the association with Chemo syndrome. ??? Drink enough water and fluids to keep your urine clear or pale yellow. ??? Get a lot of rest. ??? Gargle with a salt-water mixture 3???4 times a day or as needed. To make a salt-water mixture, completely dissolve ??-1 tsp of salt in 1 cup of warm water. ??? If your health care provider approves, you may use throat lozenges or sprays to soothe your throat. Contact a health care provider if: ??? You have large, tender lumps in your neck. ??? You have a rash. ??? You cough up green, yellow-brown, or bloody spit. Get help right away if: ??? Your neck becomes stiff. ??? You drool or are unable to swallow liquids. ??? You cannot drink or take medicines without vomiting. ??? You have severe pain that does not go away, even after you take medicine. ??? You have trouble breathing, and it is not caused by a stuffy nose. ??? You have new pain and swelling in your joints such as the knees, ankles, wrists, or elbows. Summary ??? Pharyngitis is redness, pain, and swelling (inflammation) of the throat (pharynx). ??? While pharyngitis can be caused by a bacteria, the most common causes are viral. ??? Most cases of pharyngitis get better on their own without treatment. ??? Bacterial pharyngitis is treated with antibiotic medicines. This information is not intended to replace advice given to you by your health care provider. Make sure you discuss any questions you have with your health care provider. Document Released: 03/17/2006 Document Revised: 04/22/2017 Document Reviewed: 04/22/2017 [employer] Interactive Patient Education ?? 2019 [employer] Emergency Awareness and Preventative Care STROKE is an EMERGENCY Every Minute Counts Act FAST and Check for these signs: FACE Does the face look uneven? ARM Does one arm drift down? SPEECH Does their speech sound strange? TIME Call at any sign of stroke Stroke Risk Factors Atrial Fibrillation (irregular heartbeat) Diabetes Family history of stroke Heart Disease Heavy alcohol use High Blood Pressure High Cholesterol Physical inactivity and obesity Smoking Cigarette Smoking The facts are clear, cigarette smoking will shorten your life. Smoking can cause many illnesses along the way. As a healthcare provider, we recommend that you stop smoking. Assistance with quitting is available by contacting 7-360-NGIQNOW. This is a free resource providing counseling, support, and referral. Or you may contact your personal physician. National Suicide Prevention Lifeline: The National Suicide Prevention Lifeline is a national network of local crisis centers that provides free and confidential emotional support to people in suicidal crisis or emotional distress 24 hours a day, 7 days a week. Don't Wait! Stop a Heart Attack Before it Starts What is a heart attack? A heart attack is damage or to a part of the heart from severely decreased or lack of blood flow to the heart. Over time, arteries can become narrow from the buildup of fat and cholesterol, which is called plaque. The plaque can rupture causing a blood clot to form. When the blood clot forms, the artery can become severely narrowed or completely blocked, causing a heart attack. Heart attack is the leading cause of in the [place]. 85% of muscle damage occurs within the first 2 hours. Delay in the recognition of heart attack symptoms increases the chances of . Know the early symptoms of a heart attack: Nausea Feeling of fullness in chest Jaw Pain Pain that travels down one or both arms Fatigue/being tired Anxiety Back Pain Chest pressure, squeezing, or discomfort Shortness of breath Sweating, or a cold sweat Feeling of impending doom There are unusual signs of a heart attack, too! Women, the elderly, and diabetics may present with atypical symptoms: Fainting/dizziness Weakness Confusion Risk Factors for a Heart Attack Some heart disease risk factors, such as age and family history, cannot be changed. Others, like smoking and lack of exercise, can be changed. Smoking High Cholesterol High Blood Pressure Family History Obesity Age Gender (Males are at higher risk) Lack of Exercise Diabetes Diet Stress Excessive Alcohol Intake If you or someone you know is experiencing the signs and symptoms of a heart attack, DON???T DELAY. Call immediately and seek help. If someone collapses, perform CPR! Do not attempt to drive if you are having symptoms of heart attack. Hands-Only CPR Why Hands-Only CPR? Hands-Only CPR has been shown to be as effective as conventional CPR for cardiac arrests that occur outside of a hospital. Survival depends on immediately receiving CPR from someone nearby. How do you perform Hands-Only CPR? There are two easy steps: Call if you see a teen or adult collapse Push hard and fast in the center of the chest at a beat of 100 beats per minute. Save a life! 4 WAYS TO GET AHEAD OF SEPSIS SEPSIS is a MEDICAL EMERGENCY. Time matters! Infections put you and your family at risk for a life-threatening condition called sepsis. Sepsis is the body's extreme response to an infection. It is life-threatening, and without timely treatment, sepsis can rapidly lead to tissue damage, organ failure, and . Sepsis happens when an infection you already have-in your skin, lungs, urinary tract or somewhere else-triggers a chain reaction throughout your body. 1 PREVENT INFECTIONS Take good care of chronic conditions. Talk to your doctor about getting the recommended vaccines. 2 PRACTICE GOOD HYGIENE Wash your hands frequently. Keep cuts or open sores clean and covered until they are healed. 3 KNOW THE SYMPTOMS Confusion or disorientation Shortness of breath High heart rate Fever, shivering, or feeling very cold Extreme pain or discomfort Clammy or sweaty skin 4 ACT FAST Get medical care IMMEDIATELY if you suspect sepsis or if you have an infection that is not getting better or is getting worse. To learn more about sepsis and how to prevent infections, visit www.cdc.gov/sepsis. The examination and treatment you have received in the Emergency Department has been done to provide an appropriate evaluation and stabilizing treatment on an emergency basis only. Given the limited resources, it is not meant to be a substitute for complete medical care. The follow-up doctor you named will receive a copy of your records and all test reports. IT IS IMPORTANT THAT YOU SCHEDULE A FOLLOW-UP APPOINTMENT AND ARE RE-EVALUATED. You should report any new complaints, symptoms, or remaining problems at that time. IT IS IMPOSSIBLE FOR THE EMERGENCY DEPARTMENT TO RECOGNIZE AND TREAT ALL ELEMENTS OF INJURY OR ILLNESS IN A SINGLE VISIT. If you have been referred to a specialist physician, it means that we believe you may have a condition that requires the expertise of a specialist. These physicians work in partnership with the hospital and have agreed to see referred patients in their office for further evaluation. KEEP IN MIND THAT THE SPECIALIST HAS HIS/HER OWN OFFICE POLICIES WHICH MAY REQUIRE PROPER INSURANCE OR PAYMENT UP FRONT BEFORE THE SPECIALIST WILL SEE YOU. It is your responsibility to call the specialist physician to make an appointment. We do not have the ability to refer patients to specialists/physicians that work with specific insurance companies. Please be advised that all financial charges or billing practices are determined by that practice, not the hospital. If your insurance company requires that you see a specialist from their approved list, it is your responsibility to contact your insurance company to make those arrangements. It is also your responsibility to follow any other requirements of your insurance company necessary to obtain coverage for claims submitted. We will bill your insurance; however, you are responsible today for any co-pay amounts. You will receive a separate bill for any services you may have received including: emergency, radiology, or pathology physicians. Patient Name:JESSICA SAWYER JO I have received this information and was given the opportunity to ask questions. Patient/Formation Fracturing Operator Name: Patient/Formation Fracturing Operator Signature: Relationship to Patient: Clinician/Hospital Formation Fracturing Operator Signature: Please Provide a Telephone Number Where You Can Be Reached: Is it Permissible To Leave a Message? Date: Electronically signed by Sana, [facility] Conversion Custodial Supervisor Cerner at 07/15/2022 8:17 AM CDT documented in this encounter Plan of Treatment Not on file documented as of this encounter Visit Diagnoses Not on filedocumented in this encounter Care Teams Credentialer Relationship Specialty Start Date End Date Manuel Bingham MD [address] [place] [address] PCP - General Family Medicine 07/31/24 documented as of this encounter
--- OUTSIDE RECORDS SUMMARY | 2024-10-25 12:49 | XMS_ITS | Encounter Summary ---
Author Organization [employer] ([place], [place], [place], [place]) Address [address] [place] [address] Care Team Providers Care Laundry Sorter Name Role Phone Manuel Bingham MD Primary Care Provider + [phone] Encounter Details Date Type Department Care Team (Late st Contact Info) Description 11/30/2019 Transcribed Document [facility] Radiology [address] [place] [address] Devyn Gross MD [address] [place] [address] Dept[place] [address] Social History Tobacco Use Types Packs/Day Years Used Date Smoking Tobacco: Never Assessed Comments Unknown Sex and Gender Information Value Date Recorded Sex Assigned at Not on file Legal Sex Female 4:40 PM CDT Gender Identity Not on file Sexual Orientation Not on file documented as of this encounter Miscellaneous Notes * Cerner Conversion Note - Devyn Gross MD - 11/30/2019 4:37 AM EDT Electronically signed by [facility] Conversion Transmission And Coordination Engineer Cerner at 07/15/2022 8:13 AM CDT documented in this encounter Plan of Treatment Not on file documented as of this encounter Visit Diagnoses Not on filedocumented in this encounter Care Teams Laundry Sorter Relationship Specialty Start Date End Date Manuel Bingham MD [address] [place] [address] [phone] PCP - General Family Medicine 07/31/24 documented as of this encounter
--- OUTSIDE RECORDS SUMMARY | 2024-10-25 12:49 | XMS_ITS | Encounter Summary ---
Author Organization [employer] ([place], [place], [place], [place]) Address [address] [place] [address] Care Team Providers Care White Goods Appliance Tech Name Role Phone Manuel Bingham MD Primary Care Provider [phone] Encounter Details Date Type Department Care Team (Late st Contact Info) Description 03/24/2019 Transcribed Document [facility] [place] Family Medicine [address] [place] [address] ProviderJohn MD [address] [place] [address] Social History Tobacco Use Types Packs/Day Years Used Date Smoking Tobacco: Never Assessed Comments Unknown Sex and Gender Information Value Date Recorded Sex Assigned at Not on file Legal Sex Female 4:40 PM CDT Gender Identity Not on file Sexual Orientation Not on file documented as of this encounter Miscellaneous Notes * Cerner Conversion Note - John ProviderMD - 03/24/2019 4:23 PM SEASONAL RECRUITER Electronically signed by [facility] Conversion Vehicle Body Sander Cerner at 07/15/2022 8:16 AM CDT documented in this encounter Plan of Treatment Not on file documented as of this encounter Visit Diagnoses Not on filedocumented in this encounter Care Teams White Goods Appliance Tech Relationship Specialty Start Date End Date Manuel Bingham MD [address] [place] [address] PCP - General Family Medicine 07/31/24 documented as of this encounter
--- OUTSIDE RECORDS SUMMARY | 2024-10-25 12:49 | XMS_ITS | Encounter Summary ---
Author Organization [employer] ([place], [place], [place], [place]) Address [address] [place] [address] Care Team Providers Care Senior Coldfusion Developer Name Role Phone Manuel Bingham MD Primary Care Provider [phone] Encounter Details Date Type Department Care Team (Late st Contact Info) Description 08/30/2018 Transcribed Document [facility] [place] [address] [place] [address] ProviderJohn MD [address] [place] [id number] Social History Tobacco Use Types Packs/Day Years Used Date Smoking Tobacco: Never Assessed Comments Unknown Sex and Gender Information Value Date Recorded Sex Assigned at Not on file Legal Sex Female 4:40 PM CDT Gender Identity Not on file Sexual Orientation Not on file documented as of this encounter Miscellaneous Notes * [employer]ner Conversion Note - John ProviderMD - 08/30/2018 9:58 PM CDT Electronically signed by [facility] Conversion Escapement Matcher Cerner at 07/15/2022 8:11 AM CDT documented in this encounter Plan of Treatment Not on file documented as of this encounter Visit Diagnoses Not on filedocumented in this encounter Care Teams Senior Coldfusion Developer Relationship Specialty Start Date End Date Manuel Bingham MD [address] [place] [address] PCP - General Family Medicine 07/31/24 documented as of this encounter
--- OUTSIDE RECORDS SUMMARY | 2024-10-25 12:49 | XMS_ITS | Encounter Summary ---
Author Organization [employer] ([place], [place], [place], [place]) Address [address] [place] [address] Care Team Providers Care Tig Welder Name Role Phone Manuel Bingham MD Primary Care Provider + Encounter Details Date Type Department Care Team (Late st Contact Info) Description 03/24/2019 Transcribed Document [facility] [place] [address] [place] [address] ProviderJohn MD [address], [place] [id number] Social History Tobacco Use Types Packs/Day Years Used Date Smoking Tobacco: Never Assessed Comments Unknown Sex and Gender Information Value Date Recorded Sex Assigned at Not on file Legal Sex Female 4:40 PM CDT Gender Identity Not on file Sexual Orientation Not on file documented as of this encounter Miscellaneous Notes * Cerner Conversion Note - Historical ProviderMD - 03/24/2019 2:29 PM URANIUM PROCESSING SUPERVISOR ED Triage Entered On: 03/24/2019 14:39 EST Performed On: 03/24/2019 14:37 EST by DALE FUENTES RN ED Triage Across the Room Chief 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 CP STARTED AT REST, + SOA Triage Date/Time : 03/24/2019 14:37 EST DALE FUENTES RN - 03/24/2019 14:37 EST DCP GENERIC CODE Tracking Acuity : 2 - Emergent Tracking Group : [facility] ED East DALE FUENTES RN - 03/24/2019 14:37 EST Mode of Arrival : Ambulatory Transported to ED by : Private vehicle To Room Via : Ambulate Accompanied By : Unaccompanied ED Vital Signs : Document Height & Weight : Document ED Allergies : Document ED Reason for Visit : Document Tetanus Immunization : Less than 5 years DALE FUENTES RN - 03/24/2019 14:37 EST Infectious Disease History Infectious Disease History : None Fever/Chills Last 48 Hours : No Travel To Regions with Travel Advisories : No Travel Outside [place] Within Last 30 Days : No Contact With Traveler to Advisory Region : No Tuberculosis Symptoms : None DALE FUENTES RN - 03/24/2019 14:37 EST Vital Signs ED Temperature Mode : Fahrenheit Temperature, Fahrenheit : 98.1 Deg F Clinical Temperature, C : 36.7 Deg C Oxygen Therapy Mode : Room air Peripheral Pulse Rate : 74 bpm Respiratory Rate : 18 Breaths/Min Systolic Blood Pressure : 168 mmHg (HI) Diastolic Blood Pressure : 73 mmHg Oxygen Saturation : 97 % DALE FUENTES RN - 03/24/2019 14:37 EST Allergy (As Of: 03/24/2019 14:39:04 EST) Allergies (Active) No Known Medication Allergies Estimated Onset Date: Unspecified ; Created By: FRANKIE CRESPO RN; Reaction Status: Active ; Category: Drug ; Substance: No Known Medication Allergies ; Type: Allergy ; Updated By: FRANKIE CRESPO RN; Reviewed Date: 03/24/2019 14:38 EST Diagnosis Control ED (As Of: 03/24/2019 14:39:04 EST) Problems(Active) Anxiety (SNOMED CT :36127531 ) Name of Problem: Anxiety ; Recorder: Pearl Espino RN; Confirmation: Confirmed ; Classification: Medical ; Code: [id number] ; Contributor System: [employer] ; Last Updated: 12/19/2016 10:22 EDT ; Life Cycle Date: 12/22/2015 ; Life Cycle Status: Active ; Vocabulary: SNOMED CT Endometriosis (SNOMED CT :6480063983 ) Name of Problem: Endometriosis ; Recorder: Pearl Espino RN; Confirmation: Confirmed ; Classification: Medical ; Code: [id number] ; Contributor System: [employer] ; Last Updated: 12/22/2015 6:56 EDT ; Life Cycle Date: 12/22/2015 ; Life Cycle Status: Active ; Vocabulary: SNOMED CT HTN (SNOMED CT :9188480875 ) Name of Problem: HTN ; Recorder: Pearl Espino RN; Confirmation: Confirmed ; Classification: Medical ; Code: [id number] ; Contributor System: [employer] ; Last Updated: 09/30/2016 16:39 EDT ; Life Cycle Date: 12/22/2015 ; Life Cycle Status: Active ; Vocabulary: SNOMED CT S/P hysterectomy (SNOMED CT :751544711 ) Name of Problem: S/P hysterectomy ; Recorder: BELIA VELÁZQUEZ RN; Confirmation: Confirmed ; Classification: Medical ; Code: [id number] ; Contributor System: [employer] ; Last Updated: 07/19/2018 19:29 EDT ; Life Cycle Date: 07/19/2018 ; Life Cycle Status: Active ; Vocabulary: SNOMED CT Diagnoses(Active) Chest pain Date: 03/24/2019 ; Diagnosis Type: Reason For Visit ; Confirmation: Complaint of ; Clinical Dx: Chest pain ; Classification: Medical ; Clinical Service: Emergency medicine ; Code: PNED ; Probability: 0 ; Diagnosis Code: [id number] ED Height and Weight Height Source : Stated Height Entry Format : Lake Height, Feet : 5 ft(Converted to: 152 cm, 60 Inch) Height, Inches : 1 Inch(Converted to: 0 ft 1 Inch, 2.54 cm) Clinical Height : 154.94 cm Weight Source, ED : Standing scale Weight Entry Format : Lake Weight, Pounds : 200 lb Clinical Dosing Weight : 90.91 kg Body Surface Area (BSA) : 1.89 m2 Body Mass Index : 37.9 kg/m2 (HI) [place] Body Weight (IBW) : 47.45 kg DALE FUENTES RN - 03/24/2019 14:37 EST Electronically signed by Sana [facility] Conversion Chief Accounting Officer Cerner at 07/15/2022 8:10 AM CDT documented in this encounter Plan of Treatment Not on file documented as of this encounter Visit Diagnoses Not on filedocumented in this encounter Care Teams Tig Welder Relationship Specialty Start Date End Date Manuel Bingham MD [address] [place] [id number] PCP - General Family Medicine 07/31/24 documented as of this encounter
--- OUTSIDE RECORDS SUMMARY | 2024-10-25 12:49 | XMS_ITS | Encounter Summary ---
Author Organization [employer] ([place], [place], [place], [place]) Address [address] [place] [address] Care Team Providers Care Slubber Frame Changer Name Role Phone Manuel Bingham MD Primary Care Provider +1 Encounter Details Date Type Department Care Team (Late st Contact Info) Description 05/27/2019 Transcribed Document [facility] [place] Family [place] [address] [place] [address] ProviderJohn MD [address] [place] [id number] Social History Tobacco Use Types Packs/Day Years Used Date Smoking Tobacco: Never Assessed Comments Unknown Sex and Gender Information Value Date Recorded Sex Assigned at Not on file Legal Sex Female 4:40 PM CDT Gender Identity Not on file Sexual Orientation Not on file documented as of this encounter Miscellaneous Notes * Cerner Conversion Note - John ProviderMD - 05/27/2019 8:32 PM CHURCH HISTORY PROFESSOR Electronically signed by [facility] Conversion News Operations Manager Cerner at 07/15/2022 8:17 AM CDT documented in this encounter Plan of Treatment Not on file documented as of this encounter Visit Diagnoses Not on filedocumented in this encounter Care Teams Slubber Frame Changer Relationship Specialty Start Date End Date Manuel Bingham MD [address] [place] [address] PCP - General Family Medicine 07/31/24 documented as of this encounter
--- OUTSIDE RECORDS SUMMARY | 2024-10-25 12:49 | XMS_ITS | Encounter Summary ---
Author Organization [employer] ([place], [place], [place], [place]) Address [address] [place] [address] Care Team Providers Care Data Processing Specialist Name Role Phone Manuel Bingham MD Primary Care Provider + Encounter Details Date Type Department Care Team (Late st Contact Info) Description 02/27/2020 Transcribed Document [facility] Family Medicine [facility] [place] [address] ProviderJohn MD [address] [place] [address] Social History Tobacco Use Types Packs/Day Years Used Date Smoking Tobacco: Never Assessed Comments Unknown Sex and Gender Information Value Date Recorded Sex Assigned at Not on file Legal Sex Female 4:40 PM CDT Gender Identity Not on file Sexual Orientation Not on file documented as of this encounter Miscellaneous Notes * Cerner Conversion Note - John ProviderMD - 02/27/2020 9:22 PM LEAD FRONT DESK AGENT ED Triage Entered On: 02/27/2020 21:49 EST Performed On: 02/27/2020 21:43 EST by BELIA VELÁZQUEZ RN ED Triage Across the Room Chief Complaint : c/o can't have the fever to break, coughing and had mucus with blood in it. Patient has been taking advil at home- LD dose at 1900. Temp was 102.7 F at 1900. Pain in chest at 8/10- probably from coughing per patient. Triage Date/Time : 02/27/2020 21:43 EST BELIA VELÁZQUEZ RN - 02/27/2020 21:43 EST DCP GENERIC CODE Tracking Group : [facility] ED East Tracking Acuity : 3 - Urgent BELIA VELÁZQUEZ RN - 02/27/2020 21:43 EST Mode of Arrival : Ambulatory Transported to ED by : Private vehicle To Room Via : Ambulate Accompanied By : Unaccompanied ED Vital Signs : Document Height & Weight : Document ED Allergies : Document ED Reason for Visit : Document Tetanus Immunization : Less than 5 years BELIA VELÁZQUEZ RN - 02/27/2020 21:43 EST Infectious Disease History Has the patient ever been tested for COVID-19? : Yes, Patient stated results Positive Date of COVID-19 test known? : Yes Date of COVID-19 Test : 02/24/2020 EST Does patient have symptoms of COVID-19? : No COVID19 Screening : No Experiencing Infectious Disease Symptoms : No symptoms Physical contact outside [place] in the last 30 days : No Infectious Disease History : None Tuberculosis Symptoms : None BELIA VELÁZQUEZ RN - 02/27/2020 21:43 EST Vital Signs ED Temperature Source : Oral Temperature Mode : Fahrenheit Temperature, Fahrenheit : 98.4 Deg F ED Pain : Yes Clinical Temperature, C : 36.9 Deg C Oxygen Therapy Mode : Room air Peripheral Pulse Rate : 111 bpm (HI) Respiratory Rate : 16 Breaths/Min Blood Pressure Location : Arm, right upper Blood Pressure Source : Non-Invasive BP Device Systolic Blood Pressure : 117 mmHg Diastolic Blood Pressure : 68 mmHg Oxygen Saturation : 94 % BELIA VELÁZQUEZ RN - 02/27/2020 21:43 EST Allergy (As Of: 02/27/2020 21:49:58 EST) Allergies (Active) No Known Medication Allergies Estimated Onset Date: Unspecified ; Created By: FRANKIE CRESPO RN; Reaction Status: Active ; Category: Drug ; Substance: No Known Medication Allergies ; Type: Allergy ; Updated By: FRANKIE CRESPO RN; Reviewed Date: 02/27/2020 21:43 EST Diagnosis Control ED (As Of: 02/27/2020 21:50:26 EST) Problems(Active) Anxiety (SNOMED CT :83128764 ) Name of Problem: Anxiety ; Recorder: Pearl Espino RN; Confirmation: Confirmed ; Classification: Medical ; Code: [id number] ; Contributor System: [employer] ; Last Updated: 12/19/2016 10:22 EDT ; Life Cycle Date: 12/22/2015 ; Life Cycle Status: Active ; Vocabulary: SNOMED CT CHF (congestive heart failure) (SNOMED CT :64368961 ) Name of Problem: CHF (congestive heart failure) ; Recorder: RAMILA CHIU; Confirmation: Confirmed ; Classification: Medical ; Code: 59499781 ; Contributor System: [employer] ; Last Updated: 02/24/2020 14:48 EST ; Life Cycle Date: 02/24/2020 ; Life Cycle Status: Active ; Vocabulary: SNOMED CT Endometriosis (SNOMED CT :2097568780 ) Name of Problem: Endometriosis ; Recorder: Pearl Espino RN; Confirmation: Confirmed ; Classification: Medical ; Code: 6115714102 ; Contributor System: [employer] ; Last Updated: 12/22/2015 6:56 EDT ; Life Cycle Date: 12/22/2015 ; Life Cycle Status: Active ; Vocabulary: SNOMED CT HTN (SNOMED CT :7684556483 ) Name of Problem: HTN ; Recorder: Pearl Espino RN; Confirmation: Confirmed ; Classification: Medical ; Code: 4026185961 ; Contributor System: [employer] ; Last Updated: 09/30/2016 16:39 EDT ; Life Cycle Date: 12/22/2015 ; Life Cycle Status: Active ; Vocabulary: SNOMED CT S/P cholecystectomy (SNOMED CT :6080592208 ) Name of Problem: S/P cholecystectomy ; Recorder: BELIA VELÁZQUEZ RN; Confirmation: Confirmed ; Classification: Medical ; Code: 5147523386 ; Contributor System: [employer] ; Last Updated: 02/27/2020 21:44 EST ; Life Cycle Date: 02/27/2020 ; Life Cycle Status: Active ; Vocabulary: SNOMED CT S/P hysterectomy (SNOMED CT :026068231 ) Name of Problem: S/P hysterectomy ; Recorder: BELIA VELÁZQUEZ RN; Confirmation: Confirmed ; Classification: Medical ; Code: 437893255 ; Contributor System: [employer] ; Last Updated: 07/19/2018 19:29 EDT ; Life Cycle Date: 07/19/2018 ; Life Cycle Status: Active ; Vocabulary: SNOMED CT Diagnoses(Active) Cough Date: 02/27/2020 ; Diagnosis Type: Reason For Visit ; Confirmation: Complaint of ; Clinical Dx: Cough ; Classification: Medical ; Clinical Service: Emergency medicine ; Code: PNED ; Probability: 0 ; Diagnosis Code: [id number] Fever Date: 02/27/2020 ; Diagnosis Type: Reason For Visit ; Confirmation: Complaint of ; Clinical Dx: Fever ; Classification: Medical ; Clinical Service: Emergency medicine ; Code: PNED ; Probability: 0 ; Diagnosis Code: [id number] ED Height and Weight Height Source : Measured Height Entry Format : Gamaliel Height, Feet : 4 ft(Converted to: 122 cm, 48 Inch) Height, Inches : 11 Inch(Converted to: 0 ft 11 Inch, 27.94 cm) Clinical Height : 149.86 cm Weight Source, ED : Standing scale Weight Entry Format : Gamaliel Weight, Pounds : 190 lb Clinical Dosing Weight : 86.36 kg Body Surface Area (BSA) : 1.81 m2 Body Mass Index : 38.5 kg/m2 (HI) [place] Body Weight (IBW) : 42.87 kg BELIA VELÁZQUEZ RN - 02/27/2020 21:43 EST Pain Assessment Pain Assessment : Initial assessment Pain Scale Used : 0-10 Scale Location : Chest Quality : Aching BELIA VELÁZQUEZ RN - 02/27/2020 21:43 EST Pain Scale Intensity : 8 BELIA VELÁZQUEZ RN - 02/27/2020 21:43 EST Image 4 - Images currently included in the form version of this document have not been included in the text rendition version of the form. ED Influenza/Pneumoccocal Vaccine Influenza Immunization, Current Season : Yes Previous Vaccines from Immunization Schedule : No qualifying data available. BELIA VELÁZQUEZ RN - 02/27/2020 21:43 EST Electronically signed by Sana [facility] Conversion Ceramic Engineer Cerner at 07/15/2022 8:07 AM CDT documented in this encounter Plan of Treatment Not on file documented as of this encounter Visit Diagnoses Not on filedocumented in this encounter Care Teams Data Processing Specialist Relationship Specialty Start Date End Date Manuel Bingham MD [address] [place] [address] PCP - General Family Medicine 07/31/24 documented as of this encounter
--- OUTSIDE RECORDS SUMMARY | 2024-10-25 12:49 | XMS_ITS | Encounter Summary ---
Author Organization [employer] ([place], [place], [place], [place]) Address [address] [place] [address] Care Team Providers Care Ground Helper [address] Railway Name Role Phone Manuel Bingham MD Primary Care Provider + Encounter Details Date Type Department Care Team (Late st Contact Info) Description 02/27/2020 Transcribed Document [facility] [place] [facility] [place] [address] ProviderJohn MD [address], [place] [id number] Social History Tobacco Use Types Packs/Day Years Used Date Smoking Tobacco: Never Assessed Comments Unknown Sex and Gender Information Value Date Recorded Sex Assigned at Not on file Legal Sex Female 4:40 PM CDT Gender Identity Not on file Sexual Orientation Not on file documented as of this encounter Miscellaneous Notes * Cerner Conversion Note - Historical ProviderMD - 02/27/2020 11:12 PM CITRIX ARCHITECT Patient: JESSICA SAWYER Age: 49 years Sex: Female : 1970 Associated Diagnoses: COVID-19; Fever; Cough Author: PETR COLLINS MD-EMR Basic Information Additional information: Chief Complaint [...] Surgical history: heart cath. Endometrial Ablation. Cholecystectomy; (58214). colonoscopy. d&c. right carpal tunnel and right [...] % Oxygen Therapy Mode Room air . Oxygen saturation. General: Alert, no acute distress. Skin: Warm, [...] % 24.2 % Lymph # 1.19 K/uL Turner % 4.9 % Turner # 0.24 K/uL Eos % 0.0 % LOW Eos # 0.00 K/uL LOW Baso % 0.2 % Baso # 0.01 K/uL Slide Review No IG# 0 x10(3)/uL IG% 0 % PT 10.2 Second(s) INR 1.0 PTT 30.7 Second(s) D Dimer Quant 694 ng/mL HI HCG Serum Quant 6.0 mIU/mL NA Procalcitonin <0.05 ng/mL . Impression and Plan Diagnosis COVID-19 - Discharge, Medical Complaint of Fever - Reason For Visit, Emergency medicine, Medical Complaint of Cough - Reason For Visit, Emergency medicine, Medical bhcg was 6.0 s/p hysterectomy 1230 Patient signed out to Dr. Torres pending CT PE. Amb pulse ox 97%. Electronically signed by [facility] Conversion Slasher Tender Cerner at 07/15/2022 8:26 AM CDT documented in this encounter Plan of Treatment Not on file documented as of this encounter Visit Diagnoses Not on filedocumented in this encounter Care Teams [employer] [address] Railway Relationship Specialty Start Date End Date Manuel Bingham MD [address] [place] [address] PCP - General Family Medicine 07/31/24 documented as of this encounter
--- OUTSIDE RECORDS SUMMARY | 2024-10-25 12:49 | XMS_ITS | Encounter Summary ---
Author Organization [employer] ([place], [place], [place], [place]) Address [address] [place] [address] Care Team Providers Care Ribbon Hand Name Role Phone Manuel Bingham MD Primary Care Provider + Encounter Details Date Type Department Care Team (Late st Contact Info) Description 02/24/2020 Transcribed Document [facility] Family Medicine [address] [place] [address] ProviderJohn MD [address] [place] [address] Social History Tobacco Use Types Packs/Day Years Used Date Smoking Tobacco: Never Assessed Comments Unknown Sex and Gender Information Value Date Recorded Sex Assigned at Not on file Legal Sex Female 4:40 PM CDT Gender Identity Not on file Sexual Orientation Not on file documented as of this encounter Miscellaneous Notes * Cerner Conversion Note - Historical ProviderMD - 02/24/2020 4:19 PM [place] [address] JESSICA SAWYER :1970 Visit Time:02/24/2020 Your Visit Summary Your Care Team Primary Provider: PALLAVI LUU APRN-EMR Secondary Provider: Your Diagnosis Clinical diagnosis of COVID-19 Cough Medical Information You may obtain a copy [...] do next Follow-Up Appointments Follow Up with JOVAN SIEGEL When Within 2 to 3 days Comments Rest, fluids, and follow up with pcp. Please self quarantine for 14 days. Return for resp distress or fever that doesnt respond to tylenol or motrin. I hope you feel better soon.-Pallavi Allergies No Known Medication Allergies Immunizations This Visit No Immunizations Found Medications What How Much When Instructions Next Dose albuterol (albuterol CFC free 90 mcg/ inh inhalation aerosol with adapter) 2 Puff(s) Inhalation Four Times A Day aspirin (aspirin 81 mg oral tablet) 1 Tablet(s) Oral Every Day bisoprolol (bisoprolol 5 mg oral tablet) 0.5 Tablet(s) Oral Every Day bumetanide (Bumex) Every Day conjugated estrogens (Premarin 0.9 mg oral tablet) 1 Tablet(s) Oral Every Day meloxicam (meloxicam 7.5 mg oral tablet) Oral Every Day meloxicam (meloxicam 7.5 mg oral tablet) 1 Tablet(s) Oral Every Day Duration: 7 Day(s) spironolactone (spironolactone 100 mg oral tablet) 1 Tablet(s) Oral Every Day The home medications listed are only as [...] This Visit (last charted value for your 02/24/2020 visit) Microbiology 02/24/2020 2:51 PM Novel Coronavirus 2019: Positive Education Materials COVID-19 COVID-19, also known as coronavirus disease or novel coronavirus, is caused by a type of virus that causes respiratory illness. This may lead to inflammation and the buildup of mucus and fluids in the airway of the lungs (pneumonia). There are many different coronaviruses. Most of these viruses only affect animals, but sometimes these viruses can change and infect people. What are the causes? This illness is caused by a virus. You may catch the virus by: ??? Breathing in droplets from an infected person's cough or sneeze. ??? Touching something, like a table or a doorknob, that was exposed to the virus (contaminated) and then touching your mouth, nose, or eyes. ??? Being around animals that carry the virus, or eating uncooked or undercooked meat or animal products that contain the virus. What increases the risk? You are more likely to develop this condition if you: ??? Live in or travel to an area with a COVID-19 outbreak. ??? Come in contact with a sick person who recently traveled to an area with a COVID-19 outbreak. ??? Provide care for or live with a person who is infected with COVID-19. What are the signs or symptoms? COVID-19 causes respiratory illness that can lead to pneumonia. Symptoms of pneumonia may include: ??? A fever. ??? A cough. ??? Difficulty breathing. How is this diagnosed? This condition may be diagnosed based on: ??? Your signs and symptoms, especially if: ? You live in an area with a COVID-19 outbreak. ? You recently traveled to or from an area where the virus is common. ? You provide care for or live with a person who was diagnosed with COVID-19. ??? A physical exam. ??? Lab tests, which may include: ? A nasal swab to take a sample of fluid from your nose. ? A throat swab to take a sample of fluid from your throat. ? A sample of mucus from your lungs (sputum). ? Blood tests. How is this treated? There is no medicine to treat COVID-19. Your health care provider will talk with you about ways to treat your symptoms. This may include rest, fluids, and fbyi-zln-dnoetjw medicines. Follow these instructions at home: Lifestyle ??? Use a cool-mist humidifier to add moisture to the air. This can help you breathe more easily. ??? Do not use any products that contain nicotine or tobacco, such as cigarettes, e-cigarettes, and chewing tobacco. If you need help quitting, ask your health care provider. ??? Rest at home as told by your health care provider. ??? Return to your normal activities as told by your health care provider. Ask your health care provider what activities are safe for you. General instructions ??? Take ldhx-iri-lxcviad and prescription medicines only as told by your health care provider. ??? Drink enough fluid to keep your urine pale yellow. ??? Keep all follow-up visits as told by your health care provider. This is important. How is this prevented? There is no vaccine to help prevent COVID-19 infection. However, there are steps you can take to protect yourself and others from this virus. To protect yourself: ??? Do not travel to areas where COVID-19 is a risk. The areas where COVID-19 is reported change often. To identify high-risk areas, check the CDC travel website: wwwnc.cdc.gov/travel/notices ??? If you live in, or must travel to, an area where COVID-19 is a risk, take precautions to avoid infection. ? Stay away from people who are sick. ? Stay away from places where there are animals that may carry the virus. This includes places where animals and animal products are sold. Note that both living and animals can carry the virus. ? Wash your hands often with soap and water. If soap and water are not available, use an alcohol-based hand motorcycle technician. ? Avoid touching your mouth, face, eyes, or nose. To protect others: If you have symptoms, take steps to prevent the virus from spreading to others. ??? If you think you have a COVID-19 infection, contact your health care provider right away. Tell your health care team that you think you may have a COVID-19 infection. ??? Stay home. Leave your house only to seek medical care. ??? Do not travel while you are sick. ??? Wash your hands often with soap and water. If soap and water are not available, use alcohol-based hand motorcycle technician. ??? Stay away from other members of your household. If possible, stay in your own room, separate from others. Use a different bathroom. ??? Make sure that all people in your household wash their hands well and often. ??? Cough or sneeze into a tissue or your sleeve or elbow. Do not cough or sneeze into your hand or into the air. ??? Wear a face mask. Where to find more information ??? Centers for Disease Control and Prevention: www.cdc.gov/coronavirus/2019-ncov/index.html ??? World Health Organization: www.who.int/health-topics/coronavirus Contact a health care provider if: ??? You have traveled to an area where COVID-19 is a risk and you have symptoms of the infection. ??? You have contact with someone who has traveled to an area where COVID-19 is a risk and you have symptoms of the infection. Get help right away if: ??? You have trouble breathing. ??? You have chest pain. Summary ??? COVID-19 is caused by a type of virus that causes respiratory illness. This may lead to inflammation and the buildup of mucus and fluids in the airway of the lungs (pneumonia). ??? You are more likely to develop this condition if you live in or travel to an area with a COVID-19 outbreak. ??? There is no medicine to treat COVID-19. Your health care provider will talk with you about ways to treat your symptoms. ??? Take steps to protect yourself and others from infection. Wash your hands often. Stay away from other people who are sick and wear a mask if you are sick. This information is not intended to replace advice given to you by your health care provider. Make sure you discuss any questions you have with your health care provider. Document Released: 04/22/2019 Document Revised: 07/13/2019 Document Reviewed: 04/22/2019 [employer] Patient Education ?? 2020 [employer]. COVID-19 Convalescent Plasma: Donate To Save Lives What You Need To Know Convalescent Plasma is currently being studied as a possible new treatment for COVID-19 patients. Plasma provides many important functions in the body including helping the body to fight diseases. COVID-19 convalescent plasma is plasma that is collected from patients who have recovered from COVID-19. This plasma is rich in antibodies which are important for fighting infections and is being studied to determine if it will help other patients recover from the disease. The use of convalescent plasma has been effective in the treatment of other viral infections. (FDA.gov) How You Can Help? After you have recovered from COVID-19 you can donate your plasma to help others still suffering from this severe illness. One patient's donation provides multiple units of plasma that can be used to help other patients. Currently there is limited supply of this plasma so your donation could have an immediate impact and help those who are severely ill. (FDA.gov) About Convalescent Plasma Donation You can donate your plasma if: * If you have had a laboratory confirmed positive COVID-19 test. AND * You have been free from symptoms (fever, cough, shortness of breath) for at least 28 days. OR * You have been free from symptoms for at least 14 days and have a negative COVID-19 test. How Do You Donate? If you think you meet the criteria, contact your local blood donation center and request an appointment to donate COVID-19 Convalescent Plasma. Your Recovery Journey From COVID-19 Can Help Others. Thank You! Emergency Awareness and Preventative Care STROKE is [...] Assistance with quitting is available by contacting 3-336-CWCWNOW. This is a free resource providing counseling, support, and referral. Or you may contact your personal physician. [employer] Suicide Prevention Lifeline: The National Suicide Prevention [...] radiology, or pathology physicians. Patient Name:JESSICA SAWYER I have received this information and was given the opportunity to ask questions. Patient/Electrician Helper Automotive Name: Patient/Electrician Helper Automotive Signature: Relationship to Patient: Clinician/Hospital Electrician Helper Automotive Signature: Please Provide a Telephone Number Where You Can Be Reached: Is it Permissible To Leave a Message? Date: Electronically signed by Sana, [facility] Conversion Count Room Clerk Cerner at 07/15/2022 8:28 AM CDT documented in this encounter Plan of Treatment Not on file documented as of this encounter Visit Diagnoses Not on filedocumented in this encounter Care Teams Ribbon Hand Relationship Specialty Start Date End Date Manuel Bingham MD [address] [place] [address] PCP - General Family Medicine 07/31/24 documented as of this encounter
--- OUTSIDE RECORDS SUMMARY | 2024-10-25 12:49 | XMS_ITS | Encounter Summary ---
Author Organization [employer] ([place], [place], [place], [place]) Address [address] [place] [address] Care Team Providers Care Mission Planner Name Role Phone Manuel Bingham MD Primary Care Provider [phone] Encounter Details Date Type Department Care Team (Late st Contact Info) Description 07/19/2018 Transcribed Document [facility] [place] Family Medicine [address] [place] [address] ProviderJohn MD [address] [place] [id number] Social History Tobacco Use Types Packs/Day Years Used Date Smoking Tobacco: Never Assessed Comments Unknown Sex and Gender Information Value Date Recorded Sex Assigned at Not on file Legal Sex Female 4:40 PM CDT Gender Identity Not on file Sexual Orientation Not on file documented as of this encounter Miscellaneous Notes * Cerner Conversion Note - John ProviderMD - 07/19/2018 8:58 PM CDT Electronically signed by [facility] Conversion Review Scheduling Coordinator Cerner at 07/15/2022 8:08 AM CDT documented in this encounter Plan of Treatment Not on file documented as of this encounter Visit Diagnoses Not on filedocumented in this encounter Care Teams Mission Planner Relationship Specialty Start Date End Date Manuel Bingham MD [address] [place] [address] PCP - General Family Medicine 07/31/24 documented as of this encounter
--- OUTSIDE RECORDS SUMMARY | 2024-10-25 12:49 | XMS_ITS | Encounter Summary ---
Author Organization [employer] ([place], [place], [place], [place]) Address [address] [place] [address] Care Team Providers Care Watch Technician Name Role Phone Manuel Bingham MD Primary Care Provider + Encounter Details Date Type Department Care Team (Late st Contact Info) Description 02/24/2020 Transcribed Document [facility] [place] [address] [place] [address] ProviderJohn MD [address] [place] [address] Social History Tobacco Use Types Packs/Day Years Used Date Smoking Tobacco: Never Assessed Comments Unknown Sex and Gender Information Value Date Recorded Sex Assigned at Not on file Legal Sex Female 4:40 PM CDT Gender Identity Not on file Sexual Orientation Not on file documented as of this encounter Miscellaneous Notes * Cerner Conversion Note - John ProviderMD - 02/24/2020 4:21 PM AGRICULTURAL RESEARCHER ED Discharge Entered On: 02/24/2020 16:22 EST Performed On: 02/24/2020 16:21 EST by LIS VASQUEZ RN Discharge Process Patient Disposition : Discharge Personal Belongings With Patient : Yes Patient Education Completed : Yes Teaching Evaluation : Verbalizes understanding IV Discontinued : Not applicable Nursing Documentation Completed : Yes LIS VASQUEZ RN - 02/24/2020 16:21 EST ED Discharge Discharge To : Home with ambulatory/outpatient follow-up Mode Of Departure : Ambulatory Accompanied By : Unaccompanied Discharge Instructions Reviewed With, Opportunity For Questions Given : Patient LIS VASQUEZ RN - 02/24/2020 16:21 EST documented in this encounter Plan of Treatment Not on file documented as of this encounter Visit Diagnoses Not on filedocumented in this encounter Care Teams Watch Technician Relationship Specialty Start Date End Date Manuel Bingham MD [address] [place] [id number] PCP - General Family Medicine 07/31/24 documented as of this encounter
--- OUTSIDE RECORDS SUMMARY | 2024-10-25 12:49 | XMS_ITS | Encounter Summary ---
Author Organization [employer] ([place], [place], [place], [place]) Address [address] [place] [address] Care Team Providers Care Salt Refiner Name Role Phone Manuel Bingham MD Primary Care Provider + Encounter Details Date Type Department Care Team (Late st Contact Info) Description 07/19/2018 Transcribed Document [facility] [place] Family Medicine [address] [place] [address] ProviderJohn MD [address] [place] [address] Social History Tobacco Use Types Packs/Day Years Used Date Smoking Tobacco: Never Assessed Comments Unknown Sex and Gender Information Value Date Recorded Sex Assigned at Not on file Legal Sex Female 4:40 PM CDT Gender Identity Not on file Sexual Orientation Not on file documented as of this encounter Miscellaneous Notes * Cerner Conversion Note - John ProviderMD - 07/19/2018 7:12 PM CDT ED Triage Entered On: 07/19/2018 19:31 EDT Performed On: 07/19/2018 19:28 EDT by BELIA VELÁZQUEZ RN ED Triage Across the Room Special Events : Workers Comp BELIA VELÁZQUEZ RN - 07/19/2018 19:34 EDT Triage Date/Time : 07/19/2018 19:28 EDT Chief Complaint : c/o fell at work on 06-02-2018 an dhurt her back and her left hip; patient has been taking PT but not helping any; lower back pain at 20 out of 10 ; unable to sleep and hurts with walking; BELIA VELÁZQUEZ RN - 07/19/2018 19:28 EDT DCP GENERIC CODE Tracking Group : [facility] [place] Tracking Acuity : 4 - Non - Urgent BELIA VELÁZQUEZ RN - 07/19/2018 19:28 EDT Need Lab Labels Now : No Mode of Arrival : Ambulatory Transported to ED by : Private vehicle To Room Via : Ambulate Accompanied By : Significant other ED Vital Signs : Document Height & Weight : Document ED Allergies : Document ED Reason for Visit : Document Tetanus Immunization : Less than 5 years BELIA VELÁZQUEZ RN - 07/19/2018 19:28 EDT Infectious Disease History Infectious Disease History : None Fever/Chills Last 48 Hours : No Travel To Regions with Travel Advisories : No Travel Outside [place] Within Last 30 Days : No Contact With Traveler to Advisory Region : No Tuberculosis Symptoms : None BELIA VELÁZQUEZ RN - 07/19/2018 19:28 EDT Vital Signs ED Temperature Source : Oral Temperature Mode : Fahrenheit Temperature, Fahrenheit : 99 Deg F ED Pain : Yes Clinical Temperature, C : 37.2 Deg C Oxygen Therapy Mode : Room air Peripheral Pulse Rate : 72 bpm Respiratory Rate : 16 Breaths/Min Blood Pressure Location : Arm, right upper Blood Pressure Source : Non-Invasive BP Device Systolic Blood Pressure : 125 mmHg Diastolic Blood Pressure : 71 mmHg Oxygen Saturation : 97 % BELIA VELÁZQUEZ RN - 07/19/2018 19:28 EDT Allergy (As Of: 07/19/2018 19:31:45 EDT) Allergies (Active) No Known Medication Allergies Estimated Onset Date: Unspecified ; Created By: FRANKIE CRESPO RN; Reaction Status: Active ; Category: Drug ; Substance: No Known Medication Allergies ; Type: Allergy ; Updated By: FRANKIE CRESPO RN; Reviewed Date: 07/19/2018 19:28 EDT Diagnosis Control ED (As Of: 07/19/2018 19:33:47 EDT) Problems(Active) Anxiety (SNOMED CT :73888059 ) Name of Problem: Anxiety ; Recorder: Pearl Espino Rn; Confirmation: Confirmed ; Classification: Medical ; Code: [id number] ; Contributor System: [facility] ; Last Updated: 12/19/2016 10:22 EDT ; Life Cycle Date: 12/22/2015 ; Life Cycle Status: Active ; Vocabulary: SNOMED CT Endometriosis (SNOMED CT :0499814988 ) Name of Problem: Endometriosis ; Recorder: Pearl Espino Rn; Confirmation: Confirmed ; Classification: Medical ; Code: [id number] ; Contributor System: [employer] ; Last Updated: 12/22/2015 6:56 EDT ; Life Cycle Date: 12/22/2015 ; Life Cycle Status: Active ; Vocabulary: SNOMED CT HTN (SNOMED CT :5308126448 ) Name of Problem: HTN ; Recorder: Pearl Espino Rn; Confirmation: Confirmed ; Classification: Medical ; Code: [id number] ; Contributor System: [facility] ; Last Updated: 09/30/2016 16:39 EDT ; Life Cycle Date: 12/22/2015 ; Life Cycle Status: Active ; Vocabulary: SNOMED CT S/P hysterectomy (SNOMED CT :278022221 ) Name of Problem: S/P hysterectomy ; Recorder: BELIA VELÁZQUEZ RN; Confirmation: Confirmed ; Classification: Medical ; Code: [id number] ; Contributor System: [facility] ; Last Updated: 07/19/2018 19:29 EDT ; Life Cycle Date: 07/19/2018 ; Life Cycle Status: Active ; Vocabulary: SNOMED CT Diagnoses(Active) Back pain Date: 07/19/2018 ; Diagnosis Type: Reason For Visit ; Confirmation: Complaint of ; Clinical Dx: Back pain ; Classification: Medical ; Clinical Service: Emergency medicine ; Code: PNED ; Probability: 0 ; Diagnosis Code: [id number] ED Height and Weight Height Source : Measured Height Entry Format : [place] Height, Feet : 5 ft(Converted to: 152 cm, 60 Inch) Height, Inches : 0 Inch(Converted to: 0 ft 0 Inch, 0.00 cm) Clinical Height : 152.4 cm Weight Source, ED : Standing scale Weight Entry Format : [place] Weight, Pounds : 191 lb Clinical Dosing Weight : 86.82 kg Body Surface Area (BSA) : 1.83 m2 Body Mass Index : 37.4 kg/m2 ([place]) [place] Body Weight (IBW) : 45.16 kg BELIA VELÁZQUEZ RN - 07/19/2018 19:28 EDT Pain Assessment Pain Assessment : Initial assessment Pain Scale Used : 0-10 Scale Location : Back, lower Quality : Aching BELIA VELÁZQUEZ, WILLEM - 07/19/2018 19:28 EDT Pain Scale Intensity : 10 BELIA VELÁZQUEZ RN - 07/19/2018 19:28 EDT Image 4 - Images currently included in the form version of this document have not been included in the text rendition version of the form. ED Influenza/Pneumoccocal Vaccine Influenza Immunization, Current Season : Yes Previous Vaccines from Immunization Schedule : No qualifying data available. BELIA VELÁZQUEZ RN - 07/19/2018 19:28 EDT Electronically signed by Sana [facility] Conversion Compensation Consultant Cerner at 07/15/2022 8:06 AM CDT documented in this encounter Plan of Treatment Not on file documented as of this encounter Visit Diagnoses Not on filedocumented in this encounter Care Teams Salt Refiner Relationship Specialty Start Date End Date Manuel Bingham MD [address] [place] [id number] PCP - General Family Medicine 07/31/24 documented as of this encounter
--- OUTSIDE RECORDS SUMMARY | 2024-10-25 12:49 | XMS_ITS | Encounter Summary ---
Author Organization [employer] ([place], [place], [place], [place]) Address [address] [place] [address] Care Team Providers Care Film Spooler Name Role Phone Manuel Bingham MD Primary Care Provider [phone] Encounter Details Date Type Department Care Team (Late st Contact Info) Description 03/24/2019 Transcribed Document [facility] [place] [address] [place] [address] ProviderJohn MD [address] [place] [address] Social History Tobacco Use Types Packs/Day Years Used Date Smoking Tobacco: Never Assessed Comments Unknown Sex and Gender Information Value Date Recorded Sex Assigned at Not on file Legal Sex Female 4:40 PM CDT Gender Identity Not on file Sexual Orientation Not on file documented as of this encounter Miscellaneous Notes * Cerner Conversion Note - John ProviderMD - 03/24/2019 5:07 PM PATTERN CLEANER ED Discharge Entered On: 03/24/2019 17:07 EST Performed On: 03/24/2019 17:07 EST by LAZARO KHALIL RN-Kehinde Discharge Process Patient Disposition : Discharge Personal Belongings With Patient : Yes Patient Education Completed : Yes Teaching Evaluation : Verbalizes understanding IV Discontinued : Yes Nursing Documentation Completed : Yes LAZARO KHALIL RN-Resource - 03/24/2019 17:07 EST ED Discharge Discharge To : Home with ambulatory/outpatient follow-up Mode Of Departure : Ambulatory Accompanied By : Unaccompanied Discharge Instructions Reviewed With, Opportunity For Questions Given : Patient Prescriptions Given to Patient : No LAZARO KHALIL RN-Resource - 03/24/2019 17:07 EST documented in this encounter Plan of Treatment Not on file documented as of this encounter Visit Diagnoses Not on filedocumented in this encounter Care Teams Film Spooler Relationship Specialty Start Date End Date Manuel Bingham MD [address] [place] [address] PCP - General Family Medicine 07/31/24 documented as of this encounter
--- OUTSIDE RECORDS SUMMARY | 2024-10-25 12:49 | XMS_ITS | Encounter Summary ---
Author Organization [facility] ([place], [place], [place], [place]) Address [address] [place] [address] Care Team Providers Care Coach Tour Driver Name Role Phone Manuel Bingham MD Primary Care Provider + Encounter Details Date Type Department Care Team (Late st Contact Info) Description 07/19/2018 Transcribed Document [facility] Family Medicine [facility] [place] [address] ProviderJohn MD [address] [place] [id number] Social History Tobacco Use Types Packs/Day Years Used Date Smoking Tobacco: Never Assessed Comments Unknown Sex and Gender Information Value Date Recorded Sex Assigned at Not on file Legal Sex Female 4:40 PM CDT Gender Identity Not on file Sexual Orientation Not on file documented as of this encounter Miscellaneous Notes * Cerner Conversion Note - John Frank MD - 07/19/2018 9:07 [place] [address] JESSICA SAWYER :1970 Visit Time:07/19/2018 Your Visit Summary Your Care Team Admitting Physician - SAMUEL DONOHUE MD-EMR Attending Physician - SAMUEL DONOHUE MD-EMR Primary Care Physician - GINA EVANGELISTA MD-OBG INGRID, NO DR Referring Physician - INGRID, SELF REFERRED Your Diagnosis Back pain Lumbar back pain Patient Portal Reminder: Be sure to sign up for the [employer] patient portal, which gives you 21/10 access to your medical information ??? including these discharge instructions ??? using your computer, smartphone, or tablet. Just go to [email or web address] to get started. Questions? Call . You may also obtain a copy of your Emergency Department [...] do next Follow-Up Appointments Follow Up with SHELLY BELLAMY When Within 2 to 3 days Comments CALL THIS MD IN THE AM AND REPORT YOUR PAIN IS WORSE Where: [address] [facility] [address] [place] [address] [facility] (1) Follow Up with NO PRIM DR QUINTERO When Within 2 to 3 days Allergies No Known Medication Allergies Immunizations This Visit No Immunizations Found Medications What How Much When Instructions Next Dose New acetaminophen-hydrocodone (Gaston 5 mg-325 mg oral tablet) 1 Tablet(s) Oral Three Times A Day as needed for for pain Duration: 2 Day(s) Printed Prescription New cyclobenzaprine (cyclobenzaprine 10 mg oral tablet) 1 Tablet(s) Oral Three Times A Day as needed for as needed for spasm Duration: 10 Day(s) Printed Prescription New lidocaine topical (Lidoderm 5% topical film) 1 Patch(es) TransDermal Every Day as needed for BACK PAIN Duration: 5 Day(s) remove patches after 12 hours Printed Prescription Unchanged conjugated estrogens (Premarin 0.9 mg oral tablet) 1 Tablet(s) Oral Every Day Unchanged hydrochlorothiazide-lisinopril (hydrochlorothiazide-lisinopril 12.5 mg-10 mg oral tablet) 1 Tablet(s) Oral Every Day Unchanged naproxen (naproxen 500 mg oral tablet) 1 Tablet(s) Oral Two Times A Day as needed for Pain Unchanged spironolactone (spironolactone 100 mg oral tablet) 1 Tablet(s) Oral Every Day What How Much When Comments Stop Taking tiZANidine (tiZANidine 4 mg oral tablet) 1 Tablet(s) Oral One Time Order The home medications listed are only as [...] This Visit (last charted value for your 07/19/2018 visit) Computed Tomography 07/19/18 20:13:03 CT Spine Lumbar WO: CT Spine Lumbar WO Education Materials Heat Therapy Introduction Heat therapy can help ease sore, stiff, injured, and tight muscles and joints. Heat relaxes your muscles, which may help ease your pain. Heat therapy should only be used on old, pre-existing, or long-lasting (chronic) injuries. Do not use heat therapy unless told by your doctor. How to use heat therapy There are several different kinds of heat therapy, including: ??? Moist heat pack. ??? Warm water bath. ??? Hot water bottle. ??? Electric heating pad. ??? Heated gel pack. ??? Heated wrap. ??? Electric heating pad. General heat therapy recommendations ??? Do not sleep while using heat therapy. Only use heat therapy while you are awake. ??? Your skin may turn pink while using heat therapy. Do not use heat therapy if your skin turns red. ??? Do not use heat therapy if you have new pain. ??? High heat or long exposure to heat can cause garcia. Be careful when using heat therapy to avoid burning your skin. ??? Do not use heat therapy on areas of your skin that are already irritated, such as with a rash or sunburn. Get help if: ??? You have blisters, redness, swelling (puffiness), or numbness. ??? You have new pain. ??? Your pain is worse. This information is not intended to replace advice given to you by your health care provider. Make sure you discuss any questions you have with your health care provider. Document Released: 06/08/2012 Document Revised: 08/22/2016 Document Reviewed: 05/10/2014 ?? 2017 Elsevier Back Pain, Adult Introduction Back pain is very common. The pain often gets better over time. The cause of back pain is usually not dangerous. Most people can learn to manage their back pain on their own. Follow these instructions at home: Watch your back pain for any changes. The following actions may help to lessen any pain you are feeling: ??? Stay active. Start with short walks on flat ground if you can. Try to walk farther each day. ??? Exercise regularly as told by your doctor. Exercise helps your back heal faster. It also helps avoid future injury by keeping your muscles strong and flexible. ??? Do notsit, drive, or bottom liner one place for more than 30 minutes. ??? Do notstay in bed. Resting more than 1???2 days can slow down your recovery. ??? Be careful when you bend or lift an object. Use good form when lifting:? Bend at your knees. ? Keep the object close to your body. ? Do nottwist. ??? Sleep on a firm mattress. Lie on your side, and bend your knees. If you lie on your back, put a pillow under your knees. ??? Take medicines only as told by your doctor. ??? Put ice on the injured area. ? Put ice in a plastic bag. ? Place a towel between your skin and the bag. ? Leave the ice on for 20 minutes, 2???3 times a day for the first 2???3 days. After that, you can switch between ice and heat packs. ??? Avoid feeling anxious or stressed. Find good ways to deal with stress, such as exercise. ??? Maintain a healthy weight. Extra weight puts stress on your back. Contact a doctor if: ??? You have pain that does not go away with rest or medicine. ??? You have worsening pain that goes down into your legs or buttocks. ??? You have pain that does not get better in one week. ??? You have pain at night. ??? You lose weight. ??? You have a fever or chills. Get help right away if: ??? You cannot control when you poop (bowel movement) or pee (urinate). ??? Your arms or legs feel weak. ??? Your arms or legs lose feeling (numbness). ??? You feel sick to your stomach (nauseous) or throw up (vomit). ??? You have belly (abdominal) pain. ??? You feel like you may pass out (faint). This information is not intended to replace advice given to you by your health care provider. Make sure you discuss any questions you have with your health care provider. Document Released: 09/02/2008 Document Revised: 08/22/2016 Document Reviewed: 07/19/2014 ?? 2017 Elsevier Emergency Awareness and Preventative Care STROKE is [...] Assistance with quitting is available by contacting 1-598-UWKVNOW. This is a free resource providing counseling, support, and referral. Or you may contact your personal physician. [place] Suicide Prevention Lifeline: The National Suicide Prevention [...] CPR? There are two easy steps: Call 9-1-1 if you see a teen or adult [...] including: emergency, radiology, or pathology physicians. Patient Name:SANKET SAWYERCLEMENT OTT I have received this information and was given the opportunity to ask questions. Patient/Apparel Stock Checker Name: Patient/Apparel Stock Checker Signature: Relationship to Patient: Clinician/Hospital Apparel Stock Checker Signature: Please Provide a Telephone Number Where You Can Be Reached: Is it Permissible To Leave a Message? Date: Electronically signed by Interface, [facility] Conversion Coupon Manifest Clerk Cerner at 07/15/2022 8:30 AM CDT documented in this encounter Plan of Treatment Not on file documented as of this encounter Visit Diagnoses Not on filedocumented in this encounter Care Teams Coach Tour Driver Relationship Specialty Start Date End Date Manuel Bingham MD [address] [place] [address] PCP - General Family Medicine 07/31/24 documented as of this encounter
--- OUTSIDE RECORDS SUMMARY | 2024-10-25 12:49 | XMS_ITS | Encounter Summary ---
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 Name Role Phone Manuel Bingham MD Primary Care Provider + Encounter Details Date Type Department Care Team (Late st Contact Info) Description 02/28/2020 Transcribed Document [facility] Family Medicine [address] [place] [address] ProviderJohn MD [address] [place] [address] Social History Tobacco Use Types Packs/Day Years Used Date Smoking Tobacco: Never Assessed Comments Unknown Sex and Gender Information Value Date Recorded Sex Assigned at Not on file Legal Sex Female 4:40 PM CDT Gender Identity Not on file Sexual Orientation Not on file documented as of this encounter Miscellaneous Notes * Cerner Conversion Note - John Frank MD - 02/28/2020 5:51 AM [place] [address] JESSICA SAWYER :1970 Visit Time:02/27/2020 Your Visit Summary Your Care Team Primary Provider: PETR COLLINS Secondary Provider: Your Diagnosis Cough COVID-19 Fever Viral pneumonia Medical Information You may obtain a copy [...] do next Follow-Up Appointments Follow Up with Return to emergency department When Within As needed Comments Return if condition worsens, if you have high fever, vomiting, worsening of shortness of breath, fainting, etc. Make sure you follow-up with the primary care physician for further evaluation and management of your symptoms. Self quarantine as discussed with you and gave you written instructions. Follow Up with Follow-up with Patient Resource Field Reviewer at [phone] in 2 to 3 days When Within 2 to 3 days Follow Up with [facility] When Within 2 to 3 days Allergies No Known Medication Allergies Immunizations This Visit No Immunizations Found Medications What How Much When Instructions Next Dose bisoprolol (bisoprolol 5 mg oral tablet) 1 Tablet(s) Oral Every Day bumetanide (Bumex) 2 Milligram(s) Oral Two Times A Day albuterol (albuterol CFC free 90 mcg/ inh inhalation aerosol with adapter) 2 Puff(s) Inhalation Four Times A Day aspirin (aspirin 81 mg oral tablet) 1 Tablet(s) Oral Every Day estradiol 1 Milligram(s) Oral Every Day spironolactone (spironolactone 100 mg oral tablet) 1 [...] This Visit (last charted value for your 02/27/2020 visit) Hematology 02/27/2020 10:20 PM WBC: 4.9 K/uL -- Normal range between ( 3.9 and 10.0 ) RBC: 4.10 Million/uL -- Normal range between ( 3.93 and 5.22 ) Hct: 37.9 % -- Normal range between ( 34.1 and 44.9 ) Hgb: 13.3 Gram/dL -- Normal range between ( 11.2 and 15.7 ) Platelet Count: 177 K/uL -- Normal range between ( 163 and 369 ) MCH: 32.4 pg -- Normal range between ( 25.6 and 32.2 ) MCHC: 35.1 Gram/dL -- Normal range between ( 32.3 and 36.5 ) MCV: 92.4 fL -- Normal range between ( 79.0 and 94.8 ) Slide Review: No Eos %: 0.0 % -- Normal range between ( 1.0 and 7.0 ) [place] #: 0.24 K/uL -- Normal range between ( 0.24 and 0.82 ) Eos #: 0.00 K/uL -- Normal range between ( 0.04 and 0.54 ) [place] %: 4.9 % -- Normal range between ( 4.7 and 12.5 ) Baso %: 0.2 % -- Normal range between ( 0.0 and 1.0 ) Baso #: 0.01 K/uL -- Normal range between ( 0.01 and 0.08 ) RDW: 12.0 % -- Normal range between ( 11.6 and 14.4 ) Neut %: 70.5 % -- Normal range between ( 34.0 and 71.0 ) Neut #: 3.46 K/uL -- Normal range between ( 1.56 and 6.13 ) Lymph %: 24.2 % -- Normal range between ( 19.3 and 53.0 ) Lymph #: 1.19 K/uL -- Normal range between ( 1.18 and 3.74 ) MPV: 11.1 fL -- Normal range between ( 9.4 and 12.4 ) IG#: 0 x10(3)/uL IG%: 0 % -- Normal range between ( 0 and 1 ) General Chemistry 02/27/2020 10:20 PM Creatinine Level: 0.88 mg/dL -- Normal range between ( 0.55 and 1.02 ) Sodium Level: 140 mmol/L -- Normal range between ( 136 and 146 ) Potassium Level: 3.2 mmol/L -- Normal range between ( 3.5 and 5.1 ) Chloride Level: 110 mmol/L -- Normal range between ( 102 and 112 ) Carbon Dioxide Level: 25 mmol/L -- Normal range between ( 21 and 32 ) Anion Gap: 8 -- Normal range between ( 9 and 20 ) Bilirubin Total: 0.3 mg/dL -- Normal range between ( 0.2 and 1.3 ) A/G Ratio: 0.8 -- Normal range between ( 1.1 and 2.5 ) ALT: 16 Units/Liter -- Normal range between ( 12 and 78 ) AST: 16 Units/Liter -- Normal range between ( 5 and 37 ) Globulin: 4.0 Gram/dL -- Normal range between ( 1.5 and 4.5 ) Alk Phos: 79 Units/Liter -- Normal range between ( 27 and 136 ) Bun/Creatinine: 15.9 -- Normal range between ( 8.0 and 20.0 ) Calcium Level: 8.8 mg/dL -- Normal range between ( 8.5 and 10.1 ) CRP: 7.5 mg/dL -- Normal range between ( 0.0 and 0.9 ) eGFR : >60 mL/min/1.73m2 eGFR NonAfrican: >60 mL/min/1.73m2 Glucose Level: 91 mg/dL -- Normal range between ( 74 and 106 ) Blood Urea Nitrogen: 14 mg/dL -- Normal range between ( 7 and 22 ) Lactic Acid Level: 1.1 mmol/L -- Normal range between ( 0.4 and 2.0 ) Protein Total: 7.1 Gram/dL -- Normal range between ( 6.4 and 8.2 ) Albumin Level: 3.1 Gram/dL -- Normal range between ( 3.4 and 5.0 ) Coagulation 02/27/2020 10:20 PM D Dimer Quant: 694 ng/mL INR: 1.0 -- Normal range between ( 0.9 and 1.1 ) PTT: 30.7 Second(s) -- Normal range between ( 24.2 and 31.8 ) PT: 10.2 Second(s) -- Normal range between ( 9.6 and 11.5 ) Endocrinology 02/27/2020 10:20 PM HCG Serum Quant: 6.0 mIU/mL Procalcitonin: <0.05 ng/mL -- Normal range between ( 0.00 and 0.05 ) Education Materials Prevent the Spread of COVID-19 if You Are Sick If you are sick with COVID-19 or think you might have COVID-19, follow the steps below to help protect other people in your home and community. Stay home except to get medical care. ??? Stay home. Most people with COVID-19 have mild illness and are able to recover at home without medical care. Do not leave your home, except to get medical care. Do not visit public areas. ??? Take care of yourself. Get rest and stay hydrated. ??? Get medical care when needed. Call your doctor before you go to their office for care. But, if you have trouble breathing or other concerning symptoms, call 911 for immediate help. ??? Avoid public transportation, ride-sharing, or taxis. Separate yourself from other people and pets in your home. ??? As much as possible, stay in a specific room and away from other people and pets in your home. Also, you should use a separate bathroom, if available. If you need to be around other people or animals in or outside of the home, wear a cloth face covering. ? See COVID-19 and Animals if you have questions about pets: https://www.cdc.gov/coronavirus/2019- ncov/faq.html#IKNUR04ptcvcwi Monitor your symptoms. ??? Common symptoms of COVID-19 include fever and cough. Trouble breathing is a more serious symptom that means you should get medical attention. ??? Follow care instructions from your healthcare provider and local health department. Your local health authorities will give instructions on checking your symptoms and reporting information. If you develop emergency warning signs for COVID-19 get medical attention immediately. Emergency warning signs include*: ??? Trouble breathing ??? Persistent pain or pressure in the chest ??? New confusion or not able to be woken ??? Bluish lips or face *This list is not all inclusive. Please consult your medical provider for any other symptoms that are severe or concerning to you. Call 911 if you have a medical emergency. If you have a medical emergency and need to call 911, notify the conche operator that you have or think you might have, COVID-19. If possible, put on a facemask before medical help arrives. Call ahead before visiting your doctor. ??? Call ahead. Many medical visits for routine care are being postponed or done by phone or telemedicine. ??? If you have a medical appointment that cannot be postponed, call your doctor's office. This will help the office protect themselves and other patients. If you are sick, wear a cloth covering over your nose and mouth. ??? You should wear a cloth face covering over your nose and mouth if you must be around other people or animals, including pets (even at home). ??? You don't need to wear the cloth face covering if you are alone. If you can't put on a cloth face covering (because of trouble breathing for example), cover your coughs and sneezes in some other way. Try to stay at least 6 feet away from other people. This will help protect the people around you. Note: During the COVID-19 pandemic, medical grade facemasks are reserved for healthcare workers and some first responders. You may need to make a cloth face covering using a scarf or bandana. Cover your coughs and sneezes. ??? Cover your mouth and nose with a tissue when you cough or sneeze. ??? Throw used tissues in a lined trash can. ??? Immediately wash your hands with soap and water for at least 20 seconds. If soap and water are not available, clean your hands with an alcohol-based hand shank boner that contains at least 60% alcohol. Clean your hands often. ??? Wash your handsoften with soap and water for at least 20 seconds. This is especially important after blowing your nose, coughing, or sneezing; going to the bathroom; and before eating or preparing food. ??? Use hand shank boner if soap and water are not available. Use an alcohol-based hand shank boner with at least 60% alcohol, covering all surfaces of your hands and rubbing them together until they feel dry. ??? Soap and water are the best option, especially if your hands are visibly dirty. ??? Avoid touching your eyes, nose, and mouth with unwashed hands. Avoid sharing personal household items. ??? Do not share dishes, drinking glasses, cups, eating utensils, towels, or bedding with other people in your home. ??? Wash these items thoroughly after using them with soap and water or put them in the balcony worker. Clean all high-touch surfaces everyday. ??? Clean and disinfect high-touch surfaces in your sick room and bathroom. Let someone else clean and disinfect surfaces in common areas, but not your bedroom and bathroom. ??? If a caregiver or other person needs to clean and disinfect a sick person's bedroom or bathroom, they should do so on an as-needed basis. The caregiver/other person should wear a mask and wait as long as possible after the sick person has used the bathroom. High-touch surfaces include phones, remote controls, counters, tabletops, doorknobs, bathroom fixtures, toilets, keyboards, tablets, and bedside tables. ??? Clean and disinfect areas that may have blood, stool, or body fluids on them. ??? Use household combat control and disinfectants. Clean the area or item with soap and water or another detergent if it is dirty. Then use a household disinfectant. ? Be sure to follow the instructions on the label to ensure safe and effective use of the product. Many products recommend keeping the surface wet for several minutes to ensure germs are killed. Many also recommend precautions such as wearing gloves and making sure you have good ventilation during use of the product. ? Most EPA-registered household disinfectants should be effective. How to discontinue home isolation ??? People with COVID-19 who have stayed home (home isolated) can stop home isolation under the following conditions: ? If you will not have a test to determine if you are still contagious, you can leave home after these three things have happened: ? You have had no fever for at least 72 hours (that is three full days of no fever without the use medicine that reduces fevers) AND ? other symptoms have improved (for example, when your cough or shortness of breath has improved) AND ? at least 7 days have passed since your symptoms first appeared. ? If you will be tested to determine if you are still contagious, you can leave home after these three things have happened: ? You no longer have a fever (without the use of medicine that reduces fevers) AND ? other symptoms have improved (for example, when your cough or shortness of breath has improved) AND ? you received two negative tests in a row, 24 hours apart. Your doctor will follow CDC guidelines. In all cases, follow the guidance of your healthcare provider and local health department. The decision to stop home isolation should be made in consultation with your healthcare provider and state and local health departments. Local decisions depend on local circumstances. cdc.gov/coronavirus 07/16/2019 This information is not intended to replace advice given to you by your health care provider. Make sure you discuss any questions you have with your health care provider. Document Released: 07/13/2019 Document Revised: 07/16/2019 Document Reviewed: 07/13/2019 [employer] Patient Education ?? 2020 [email or web address]. COVID-19: How to Protect Yourself and Others Know how it spreads ??? There is currently no vaccine to prevent coronavirus disease 2019 (COVID-19). ??? The best way to prevent illness is to avoid being exposed to this virus. ??? The virus is thought to spread mainly from pfwvnp-bd-tzagzc. ? Between people who are in close contact with one another (within about 6 feet). ? Through respiratory droplets produced when an infected person coughs, sneezes or talks. ? These droplets can land in the mouths or noses of people who are nearby or possibly be inhaled into the lungs. ? Some recent studies have suggested that COVID-19 may be spread by people who are not showing symptoms. Everyone should Clean your hands often ??? Wash your hands often with soap and water for at least 20 seconds especially after you have been in a public place, or after blowing your nose, coughing, or sneezing. ??? If soap and water are not readily available, use a hand shank boner that contains at least 60% alcohol. Cover all surfaces of your hands and rub them together until they feel dry. ??? Avoid touching your eyes, nose, and mouth with unwashed hands. Avoid close contact ??? Avoid close contact with people who are sick. ??? Stay at home as much as possible. ??? Put distance between yourself and other people. ? Remember that some people without symptoms may be able to spread virus. ? This is especially important for people who are at higher risk of getting very sick.https://www.cdc.gov/coronavirus/2019-ncov/dvct-kjlse-myivxgbxrfv/people-a n-bvuukx-xfrc.html Cover your mouth and nose with a cloth face cover when around others ??? You could spread COVID-19 to others even if you do not feel sick. ??? Everyone should wear a cloth face cover when they have to go out in public, for example to the grocery store or to mushroom picker other necessities. ? Cloth face coverings should not be placed on young children under age 2, anyone who has trouble breathing, or is unconscious, incapacitated or otherwise unable to remove the mask without assistance. ??? The cloth face cover is meant to protect other people in case you are infected. ??? Do NOT use a facemask meant for a healthcare worker. ??? Continue to keep about 6 feet between yourself and others. The cloth face cover is not a substitute for social distancing. Cover coughs and sneezes ??? If you are in a private setting and do not have on your cloth face covering, remember to always cover your mouth and nose with a tissue when you cough or sneeze or use the inside of your elbow. ??? Throw used tissues in the trash. ??? Immediately wash your hands with soap and water for at least 20 seconds. If soap and water are not readily available, clean your hands with a hand shank boner that contains at least 60% alcohol. Clean and disinfect ??? Clean AND disinfect frequently touched surfaces daily. This includes tables, doorknobs, light switches, countertops, handles, desks, phones, keyboards, toilets, faucets, and sinks. https://www.cdc.gov/coronavirus/2019-ncov/lnvkrlj-llnqsha-fbxb/disinfecting-yo ur-home.html ??? If surfaces are dirty, clean them: Use detergent or soap and water prior to disinfection. cdc.gov/coronavirus 07/10/2019 This information is not intended to replace advice given to you by your health care provider. Make sure you discuss any questions you have with your health care provider. Document Released: 07/13/2019 Document Revised: 07/16/2019 Document Reviewed: 07/13/2019 [employer] Patient Education ?? 2020 [email or web address]. COVID-19 Frequently Asked Questions COVID-19 (coronavirus disease) is an infection that is caused by a large family of viruses. Some viruses cause illness in people and others cause illness in animals like camels, cats, and bats. In some cases, the viruses that cause illness in animals can spread to humans. Where did the coronavirus come from? In February 2019, [employer] told the World Health Organization (WHO) of several cases of lung disease (human respiratory illness). These cases were linked to an open seafood and livestock market in the city of [facility]. The link to the seafood and livestock market suggests that the virus may have spread from animals to humans. However, since that first outbreak in February, the virus has also been shown to spread from person to person. What is the name of the disease and the virus? Disease name Early on, this disease was called novel coronavirus. This is because scientists determined that the disease was caused by a new (novel) respiratory virus. The World Health Organization (WHO) has now named the disease COVID-19, or coronavirus disease. Virus name The virus that causes the disease is called severe acute respiratory syndrome coronavirus 2 (SARS-CoV-2). More information on disease and virus naming World Health Organization (WHO): www.who.int/emergencies/diseases/jrmaz-axyohpjwmpa-9101/technical-guidance/nam fao-okr-orriinvurik-disease-(covid-2019)-jbb-vqq-jzalq-otwx-fkaicb-pv Who is at risk for complications from coronavirus disease? Some people may be at higher risk for complications from coronavirus disease. This includes older adults and people who have chronic diseases, such as heart disease, diabetes, and lung disease. If you are at higher risk for complications, take these extra precautions: ??? Avoid close contact with people who are sick or have a fever or cough. Stay at least 3???6 ft (1???2 m) away from them, if possible. ??? Wash your hands often with soap and water for at least 20 seconds. ??? Avoid touching your face, mouth, nose, or eyes. ??? Keep supplies on hand at home, such as food, medicine, and cleaning supplies. ??? Stay home as much as possible. ??? Avoid social gatherings and travel. How does coronavirus disease spread? The virus that causes coronavirus disease spreads easily from person to person (is contagious). There are also cases of community-spread disease. This means the disease has spread to: ??? People who have no known contact with other infected people. ??? People who have not traveled to areas where there are known cases. It appears to spread from one person to another through droplets from coughing or sneezing. Can I get the virus from touching surfaces or objects? There is still a lot that we do not know about the virus that causes coronavirus disease. Scientists are basing a lot of information on what they know about similar viruses, such as: ??? Viruses cannot generally survive on surfaces for long. They need a human body (host) to survive. ??? It is more likely that the virus is spread by close contact with people who are sick (direct contact), such as through: ? Shaking hands or hugging. ? Breathing in respiratory droplets that travel through the air. This can happen when an infected person coughs or sneezes on or near other people. ??? It is less likely that the virus is spread when a person touches a surface or object that has the virus on it (indirect contact). The virus may be able to enter the body if the person touches a surface or object and then touches his or her face, eyes, nose, or mouth. Can a person spread the virus without having symptoms of the disease? It may be possible for the virus to spread before a person has symptoms of the disease, but this is most likely not the main way the virus is spreading. It is more likely for the virus to spread by being in close contact with people who are sick and breathing in the respiratory droplets of a sick person's cough or sneeze. What are the symptoms of coronavirus disease? Symptoms vary from person to person and can range from mild to severe. Symptoms may include: ??? Fever. ??? Cough. ??? Tiredness, weakness, or fatigue. ??? Fast breathing or feeling short of breath. These symptoms can appear anywhere from 2 to 14 days after you have been exposed to the virus. If you develop symptoms, call your health care provider. People with severe symptoms may need hospital care. If I am exposed to the virus, how long does it take before symptoms start? Symptoms of coronavirus disease may appear anywhere from 2 to 14 days after a person has been exposed to the virus. If you develop symptoms, call your health care provider. Should I be tested for this virus? Your health care provider will decide whether to test you based on your symptoms, history of exposure, and your risk factors. How does a health care provider test for this virus? Health care providers will collect samples to send for testing. Samples may include: ??? Taking a swab of fluid from the nose. ??? Taking fluid from the lungs by having you cough up mucus (sputum) into a sterile cup. ??? Taking a blood sample. ??? Taking a stool or urine sample. Is there a treatment or vaccine for this virus? Currently, there is no vaccine to prevent coronavirus disease. Also, there are no medicines like antibiotics or antivirals to treat the virus. A person who becomes sick is given supportive care, which means rest and fluids. A person may also relieve his or her symptoms by using hgqj-flb-ggagjtu medicines that treat sneezing, coughing, and runny nose. These are the same medicines that a person takes for the common cold. If you develop symptoms, call your health care provider. People with severe symptoms may need hospital care. What can I do to protect myself and my family from this virus? You can protect yourself and your family by taking the same actions that you would take to prevent the spread of other viruses. Take the following actions: ??? Wash your hands often with soap and water for at least 20 seconds. If soap and water are not available, use alcohol-based hand shank boner. ??? Avoid touching your face, mouth, nose, or eyes. ??? Cough or sneeze into a tissue, sleeve, or elbow. Do not cough or sneeze into your hand or the air. ? If you cough or sneeze into a tissue, throw it away immediately and wash your hands. ??? Disinfect objects and surfaces that you frequently touch every day. ??? Avoid close contact with people who are sick or have a fever or cough. Stay at least 3???6 ft (1???2 m) away from them, if possible. ??? Stay home if you are sick, except to get medical care. Call your health care provider before you get medical care. ??? Make sure your vaccines are up to date. Ask your health care provider what vaccines you need. What should I do if I need to travel? Follow travel recommendations from your local health authority, the CDC, and WHO. Travel information and advice ??? Centers for Disease Control and Prevention (CDC): www.cdc.gov/coronavirus/2019-ncov/travelers/index.html ??? World Health Organization (WHO): www.who.int/emergencies/diseases/dhhzw-xzynxregfgb-8847/travel-advice Know the risks and take action to protect your health ??? You are at higher risk of getting coronavirus disease if you are traveling to areas with an outbreak or if you are exposed to travelers from areas with an outbreak. ??? Wash your hands often and practice good hygiene to lower the risk of catching or spreading the virus. What should I do if I am sick? General instructions to stop the spread of infection ??? Wash your hands often with soap and water for at least 20 seconds. If soap and water are not available, use alcohol-based hand shank boner. ??? Cough or sneeze into a tissue, sleeve, or elbow. Do not cough or sneeze into your hand or the air. ??? If you cough or sneeze into a tissue, throw it away immediately and wash your hands. ??? Stay home unless you must get medical care. Call your health care provider or local health authority before you get medical care. ??? Avoid public areas. Do not take public transportation, if possible. ??? If you can, wear a mask if you must go out of the house or if you are in close contact with someone who is not sick. Keep your home clean ??? Disinfect objects and surfaces that are frequently touched every day. This may include: ? Counters and tables. ? Doorknobs and light switches. ? Sinks and faucets. ? Electronics such as phones, remote controls, keyboards, computers, and tablets. ??? Wash dishes in hot, soapy water or use a balcony worker. Air-dry your dishes. ??? Wash laundry in hot water. Prevent infecting other household members ??? Let healthy household members care for children and pets, if possible. If you have to care for children or pets, wash your hands often and wear a mask. ??? Sleep in a different bedroom or bed, if possible. ??? Do not share personal items, such as razors, toothbrushes, deodorant, kitchen, brushes, towels, and washcloths. Where to find more information Centers for Disease Control and Prevention (CDC) ??? Information and news updates: www.cdc.gov/coronavirus/2019-ncov World Health Organization (WHO) ??? Information and news updates: www.who.int/emergencies/diseases/ltkgi-lxrbkmzfxwm-9328 ??? Coronavirus health topic: www.who.int/health-topics/coronavirus ??? Questions and answers on COVID-19: www.who.int/news-room/q-a-detail/j-v-dkhwgclvlfdtv ??? Global tracker: who.[employer] [place] Academy of Pediatrics (AAP) ??? Information for families: www.healthychildren.org/[place]ic/health-issues/conditions/chest-lungs/Pages/201 3-Bqmyb-Asbjfvwxxvz.aspx The coronavirus situation is changing rapidly. Check your local health authority website or the CDC and WHO websites for updates and news. When should I contact a health care provider? Contact your health care provider if you have symptoms of an infection, such as fever or cough, and you: ? Have been near anyone who is known to have coronavirus disease. ? Have come into contact with a person who is suspected to have coronavirus disease. ? Have traveled outside of the country. When should I get emergency medical care? Get help right away by calling your local emergency services (911 in the [place] if you have: ? Trouble breathing. ? Pain or pressure in your chest. ? Confusion. ? Blue-tinged lips and fingernails. ? Difficulty waking from sleep. ? Symptoms that get worse. Let the emergency medical personnel know if you think you have coronavirus disease. Summary ??? A new respiratory virus is spreading from person to person and causing COVID-19 (coronavirus disease). ??? The virus that causes COVID-19 appears to spread easily. It spreads from one person to another through droplets from coughing or sneezing. ??? Older adults and those with chronic diseases are at higher risk of disease. If you are at higher risk for complications, take extra precautions. ??? There is currently no vaccine to prevent coronavirus disease. There are no medicines, such as antibiotics or antivirals, to treat the virus. ??? You can protect yourself and your family by washing your hands often, avoiding touching your face, and covering your coughs and sneezes. This information is not intended to replace advice given to you by your health care provider. Make sure you discuss any questions you have with your health care provider. Document Released: 07/13/2019 Document Revised: 07/13/2019 Document Reviewed: 07/13/2019 [employer] Patient Education ?? 2020 [employer] Emergency Awareness and Preventative Care STROKE [...] Assistance with quitting is available by contacting 1-604-KZQMNOW. This is a free resource providing counseling, support, and referral. Or you may contact your personal physician. [place] Suicide Prevention Lifeline: The National Suicide Prevention [...] was given the opportunity to ask questions. Patient/Packaging Sales Representative Name: Patient/Packaging Sales Representative Signature: Relationship to Patient: Clinician/Hospital Packaging Sales Representative Signature: Please Provide a Telephone Number Where You Can Be Reached: Is it Permissible To Leave a Message? Date: Electronically signed by Interface, [facility] Conversion Oracle Distribution Consultant Cerner at 07/15/2022 8:27 AM CDT documented in this encounter Plan of Treatment Not on file documented as of this encounter Visit Diagnoses Not on filedocumented in this encounter Care Teams Glass Furnace Tender Relationship Specialty Start Date End Date Manuel Bingham MD [address] [place] [address] PCP - General Family Medicine 07/31/24 documented as of this encounter
--- OUTSIDE RECORDS SUMMARY | 2024-10-25 12:49 | XMS_ITS | Encounter Summary ---
Author Organization [email or web address] ([place], [place], [place], [place]) Address [address] [place] [address] Care Team Providers Care Dock Supervisor Name Role Phone Manuel Bingham MD Primary Care Provider + Encounter Details Date Type Department Care Team (Late st Contact Info) Description 03/24/2019 Transcribed Document [facility] [address] [place] [address] ProviderJohn MD [address] [place] [address] Social History Tobacco Use Types Packs/Day Years Used Date Smoking Tobacco: Never Assessed Comments Unknown Sex and Gender Information Value Date Recorded Sex Assigned at Not on file Legal Sex Female 4:40 PM CDT Gender Identity Not on file Sexual Orientation Not on file documented as of this encounter Miscellaneous Notes * Cerner Conversion Note - Historical ProviderMD - 03/24/2019 2:29 PM WOOD ROOM HAND [place] Suicide Severity Rating Scale (C-SSRS) Entered On: 03/24/2019 15:23 EST Performed On: 03/24/2019 15:21 EST by LAZARO KHALIL RN-Resource [place] Suicide Severity Rating Scale (C-SSRS) CSSRS Past Month Wish to be : No CSSRS Past Month Suicidal Thoughts : No CSSRS Lifetime Suicide Behavior : No Suicide Severity Rating Score : 0 Suicide Severity Rating : No Additional Care Required at this time LAZARO KHALIL RN-Resource - 03/24/2019 15:21 EST documented in this encounter Plan of Treatment Not on file documented as of this encounter Visit Diagnoses Not on filedocumented in this encounter Care Teams Dock Supervisor Relationship Specialty Start Date End Date Manuel Bingham MD [address] [place] [address] PCP - General Family Medicine 07/31/24 documented as of this encounter
--- OUTSIDE RECORDS SUMMARY | 2024-10-25 12:49 | XMS_ITS | Encounter Summary ---
Author Organization [employer] ([place], [place], [place], [place]) Address [address] [place] [address] Care Team Providers Care Work Car Operator Name Role Phone Manuel Bingham MD Primary Care Provider + Encounter Details Date Type Department Care Team (Late st Contact Info) Description 02/28/2020 Transcribed Document [facility] [place] [address] [place] [address] ProviderJohn MD [address] [place] [address] Social History Tobacco Use Types Packs/Day Years Used Date Smoking Tobacco: Never Assessed Comments Unknown Sex and Gender Information Value Date Recorded Sex Assigned at Not on file Legal Sex Female 4:40 PM CDT Gender Identity Not on file Sexual Orientation Not on file documented as of this encounter Miscellaneous Notes * Cerner Conversion Note - John Frank MD - 02/28/2020 7:19 AM ROLLER PRINT TENDER ED Discharge Entered On: 02/28/2020 7:19 EST Performed On: 02/28/2020 7:19 EST by LIS VASQUEZ RN Discharge Process Patient Disposition : Discharge LIS VASQUEZ RN - 02/28/2020 7:19 EST Electronically signed by Sana [facility] Conversion Weaving Machine Operator Cerner at 07/15/2022 8:16 AM CDT documented in this encounter Plan of Treatment Not on file documented as of this encounter Visit Diagnoses Not on filedocumented in this encounter Care Teams Work Car Operator Relationship Specialty Start Date End Date Manuel Bingham MD [address] [place] [address] [phone] PCP - General Family Medicine 07/31/24 documented as of this encounter
--- OUTSIDE RECORDS SUMMARY | 2024-10-25 12:49 | XMS_ITS | Encounter Summary ---
Author Organization Healthcare Address [address] [place] [place] [address] Care Team Providers Care Business Process Architect Name Role Phone Arben Rao MD Primary Care Provider + [phone] Adeola Camara MD Unavailable Encounter Details Date Type Department Care Team (Latest Contact Info) Description 08/25/2024 Outside Procedure [facility] [address] [place] [address] Madeleine Mireles MD [address] [facility] [address] [place] [address] JANAE (obstructive sleep apnea) (Primary Dx) Social History Tobacco Use Types Packs/Day Years [...] on file documented as of this encounter Plan of Treatment Not on file documented as of this encounter Visit Diagnoses Diagnosis JANAE (obstructive sleep apnea)- Primary Obstructive sleep apnea (adult) (pediatric) documented in this encounter Additional Health Concerns Assessment Noted Time A fall risk assessment has been complete d for the patient 08/25/2024 7:49 PM EDT A Body Mass Index follow-up plan has been documented for the patient 08/26/2024 5:04 AM EDT documented as of this encounter Care Teams Business Process Architect Relationship Specialty Start Date End Date Arben Rao MD [address] [place] [address] PCP - General 09/04/21 Adeola Camara MD [address] [facility] [address] [place] [address] Surgeon Neurosurgery 09/04/21 documented as of this encounter
--- OUTSIDE RECORDS SUMMARY | 2024-10-25 12:49 | XMS_ITS | Encounter Summary ---
Author Organization [employer] ([place], [place], [place], [place]) Address [address] [place] [address] Care Team Providers Care Supervisor Alteration Workroom Name Role Phone Manuel Bingham MD Primary Care Provider + Encounter Details Date Type Department Care Team (Late st Contact Info) Description 05/27/2019 Transcribed Document [facility] [place] [address] [place] [address] ProviderJohn MD [address] [place] [address] Social History Tobacco Use Types Packs/Day Years Used Date Smoking Tobacco: Never Assessed Comments Unknown Sex and Gender Information Value Date Recorded Sex Assigned at Not on file Legal Sex Female 4:40 PM CDT Gender Identity Not on file Sexual Orientation Not on file documented as of this encounter Miscellaneous Notes * Cerner Conversion Note - Historical ProviderMD - 05/27/2019 6:13 PM PROPERTY DAMAGE CLAIMS ADJUSTOR ED Assessment Entered On: 05/27/2019 19:43 EST Performed On: 05/27/2019 19:43 EST by JUDIE CELIS RN ED Quick Look Assessment Level of Consciousness : Alert, Awake Affect/Behavior : Calm, Cooperative Orientation : Oriented x 4 Skin Temperature : Warm Skin Description : Dry JUDIE CELIS RN - 05/27/2019 19:43 EST ED General-Functional Assess Information Obtained From : Patient Preferred Communication Mode : Verbal Communication Barrier : None Primary Language : Niuean Any Spiritual/Cultural Needs or Requests : No Currently in Unsafe Situation : No JUDIE CELIS RN - 05/27/2019 19:43 EST Social Habits Smoking Status : Never (less than 100 in lifetime; none in last 30 days) Smokeless Tobacco Status : Never Desires Tobacco Cessation Calc : 0 JUDIE CELIS RN - 05/27/2019 19:43 EST Social History (As Of: 05/27/2019 19:43:58 EST) Tobacco: Smoking Status Never smoker. (Last Updated: 12/22/2015 07:02:38 EDT by Pearl Espino, RN) Alcohol: Alcohol Use History No. (Last Updated: 12/22/2015 07:02:42 EDT by Pearl Espino, RN) Substance Abuse: Drug Use Hx: No. (Last Updated: 12/22/2015 07:02:46 EDT by Pearl Espino RN) EENT Assessment EENT Assessment WDL : WDL with patient specific variances Throat : Exudate noted, Redness, Sore throat, Tonsillar enlargement JUDIE CELIS RN - 05/27/2019 19:43 EST Electronically signed by [facility] Conversion Picking Machine Operator Cerner at 07/15/2022 8:16 AM CDT documented in this encounter Plan of Treatment Not on file documented as of this encounter Visit Diagnoses Not on filedocumented in this encounter Care Teams Supervisor Alteration Workroom Relationship Specialty Start Date End Date Manuel Bingham MD [address] [place] [phone] PCP - General Family Medicine 07/31/24 documented as of this encounter
--- OUTSIDE RECORDS SUMMARY | 2024-10-25 12:49 | XMS_ITS | Encounter Summary ---
Author Organization [employer] ([place], [place], [place], [place]) Address [address] [place] [address] Care Team Providers Care Biochemical Engineer Name Role Phone Manuel Bingham MD Primary Care Provider + Encounter Details Date Type Department Care Team (Late st Contact Info) Description 02/27/2020 Transcribed Document [facility] [place] [address] [place] [address] ProviderJohn MD [address] [place] [address] Social History Tobacco Use Types Packs/Day Years Used Date Smoking Tobacco: Never Assessed Comments Unknown Sex and Gender Information Value Date Recorded Sex Assigned at Not on file Legal Sex Female 4:40 PM CDT Gender Identity Not on file Sexual Orientation Not on file documented as of this encounter Miscellaneous Notes * Cerner Conversion Note - Historical ProviderMD - 02/27/2020 10:59 PM MEDICAL BILLER/CODER ED Event Note Entered On: 02/27/2020 23:02 EST Performed On: 02/27/2020 22:59 EST by Umberto Higgins Interface Developer ED Event Note ED Event Date/Time : 02/27/2020 23:00 EST ED Event Location : Assigned room ED Event Details : Change in condition ED Description of Event : Walked patient in room with pulse ox. Patient remained at 96% on room air and heart rate increased from 102 to 110. Patient had no complaints of SOA while walking. Provider was notifed of the results. Umberto Higgins Interface Developer - 02/27/2020 22:59 EST Electronically signed by Sana [facility] Conversion Floral Merchandiser Cerner at 07/15/2022 8:21 AM CDT documented in this encounter Plan of Treatment Not on file documented as of this encounter Visit Diagnoses Not on filedocumented in this encounter Care Teams Biochemical Engineer Relationship Specialty Start Date End Date Manuel Bingham MD [address] [place] [address] PCP - General Family Medicine 07/31/24 documented as of this encounter
--- OUTSIDE RECORDS SUMMARY | 2024-10-25 12:49 | XMS_ITS | Encounter Summary ---
Author Organization [employer] ([place], [place], [place], [place]) Address [address] [place] [address] Care Team Providers Care Vp Respiratory Name Role Phone Manuel Bingham MD Primary Care Provider [phone] Encounter Details Date Type Department Care Team (Late st Contact Info) Description 03/24/2019 Transcribed Document [facility] [address] [place] [address] ProviderJohn MD [address] [place], [place] [address] Social History Tobacco Use Types Packs/Day Years Used Date Smoking Tobacco: Never Assessed Comments Unknown Sex and Gender Information Value Date Recorded Sex Assigned at Not on file Legal Sex Female 4:40 PM CDT Gender Identity Not on file Sexual Orientation Not on file documented as of this encounter Miscellaneous Notes * Cerner Conversion Note - Historical ProviderMD - 03/24/2019 2:29 PM GENERAL LEDGER BOOKKEEPER ED Assessment Entered On: 03/24/2019 15:23 EST Performed On: 03/24/2019 15:21 EST by LAZARO KHALIL RN-Resource ED Quick Look Assessment Level of Consciousness : Alert, Awake Affect/Behavior : Appropriate, Cooperative Orientation : Oriented x 4 Skin Temperature : Warm LAZARO KHALIL RN-[place]hinde - 03/24/2019 15:21 EST ED General-Functional Assess Information Obtained From : Patient Preferred Communication Mode : Verbal Communication Barrier : None Primary Language : Filipino Any Spiritual/Cultural Needs or Requests : No Currently in Unsafe Situation : No LAZARO KHALIL RN-[place]hinde - 03/24/2019 15:21 EST Social Habits Smoking Status : Never (less than 100 in lifetime; none in last 30 days) Smokeless Tobacco Status : Never Desires Tobacco Cessation Calc : 0 LAZARO KHALIL RN-Resource - 03/24/2019 15:21 EST Social History (As Of: 03/24/2019 15:23:26 EST) Tobacco: Smoking Status Never smoker. (Last Updated: 12/22/2015 07:02:38 EDT by Pearl Espino RN) Alcohol: Alcohol Use History No. (Last Updated: 12/22/2015 07:02:42 EDT by Pearl Espino RN) Substance Abuse: Drug Use Hx: No. (Last Updated: 12/22/2015 07:02:46 EDT by Pearl Espino RN) EENT Assessment EENT Assessment WDL : WDL LAZARO KHALIL RN-Resource - 03/24/2019 15:21 EST Cardiovascular ASMT, ED Cardiovascular Assessment WDL : WDL Cardiovascular Symptoms : None Nail Bed Color : [place] Chest Pain : No LAZARO KHALIL RN-Resource - 03/24/2019 15:21 EST Pulses Grid Posterior Tibial Pulse, Left : 2+ normal Posterior Tibial Pulse, Right : 2+ normal Radial Pulse, Left : 2+ normal Radial Pulse, Right : 2+ normal LAZARO KHALIL RN-Resource - 03/24/2019 15:21 EST Edema Ed Grid Edema, Ankle, Left : 1+ trace/2 mm Edema, Ankle, Right : 1+ trace/2 mm Edema, Foot, Left : 1+ trace/2 mm Edema, Foot, Right : 1+ trace/2 mm LAZARO KHALIL RN-Resource - 03/24/2019 15:21 EST Respiratory Respiratory Assessment WDL : WDL Cough : None LAZARO KHALIL RN-Resource - 03/24/2019 15:21 EST Breath Sounds Assessment Grid All Lobes Breath Sounds : Clear LAZARO KHALIL RN-Resource - 03/24/2019 15:21 EST Respiratory Pattern Description : Regular LAZARO KHALIL RN-Resource - 03/24/2019 15:21 EST Oxygen Therapy Oxygen Therapy Mode : Room air LAZARO KHALIL RN-Resource - 03/24/2019 15:21 EST Gastrointestinal ED Gastrointestinal Assessment WDL : WDL KHALIL, LAZARO C, RN-Resource - 03/24/2019 15:21 EST Genitourinary Assessment, ED Genitourinary Assessment WDL : LAZARO BACON RN-Resource - 03/24/2019 15:21 EST Musculoskeletal Musculoskeletal Assessment WDL : LAZARO BACON RN-Kehinde - 03/24/2019 15:21 EST Integumentary Assessment Skin Temperature : Warm Integumentary Assessment WDL : LAZARO BACON RN-Resource - 03/24/2019 15:21 EST Neurologic ASMT, ED Neurologic Assessment WDL : LAZARO BACON RN-Resource - 03/24/2019 15:21 EST Pain Assessment Pain Assessment : Initial assessment Pain Scale Used : 0-10 Scale LAZARO KHALIL RN-Resource - 03/24/2019 15:21 EST Pain Scale Intensity : 0 LAZARO KHALIL RN-Resource - 03/24/2019 15:21 EST Image 4 - Images currently included in the form version of this document have not been included in the text rendition version of the form. documented in this encounter Plan of Treatment Not on file documented as of this encounter Visit Diagnoses Not on filedocumented in this encounter Care Teams Vp Respiratory Relationship Specialty Start Date End Date Manuel Bingham MD [address] [place] [phone] PCP - General Family Medicine 07/31/24 documented as of this encounter
--- OUTSIDE RECORDS SUMMARY | 2024-10-25 12:49 | XMS_ITS | Encounter Summary ---
Author Organization [employer] ([place], [place], [place], [place]) Address [address] [place] [address] Care Team Providers Care Full Time Name Role Phone Manuel Bingham MD Primary Care Provider + Encounter Details Date Type Department Care Team (Late st Contact Info) Description 08/30/2018 Transcribed Document [facility] [place] [facility] [place] [address] ProviderJohn MD [address] [place] [id number] Social History Tobacco Use Types Packs/Day Years Used Date Smoking Tobacco: Never Assessed Comments Unknown Sex and Gender Information Value Date Recorded Sex Assigned at Not on file Legal Sex Female 4:40 PM CDT Gender Identity Not on file Sexual Orientation Not on file documented as of this encounter Miscellaneous Notes * Cerner Conversion Note - John ProviderMD - 08/30/2018 10:01 [place] [address] JESSICA SAWYER :1970 Visit Time:08/30/2018 Your Visit Summary Your Care Team Admitting Physician - INGRID, RADHA Attending Physician - SAMUEL DONOHUE MD-EMR Primary Care Physician - GINA EVANGELISTA MD-OBG INGRID, NO Your Diagnosis Fall H/O fall Left knee sprain Sprain of left elbow Sprain of left hip Sprain of lumbar region Patient Portal Reminder: Be sure to sign up for the [facility] patient portal, which gives you 21/10 access to your medical information ??? including these discharge instructions ??? using your computer, smartphone, or tablet. Just go to [employer] to get started. Questions? Call . You [...] do next Follow-Up Appointments Follow Up with NARESH PARKS When Within 2 to 3 days Comments Call for follow up appointment with ortho if pain continues take meds as prescribed, use ice/heat and 2o min on and off and rom exercises return to er if symptoms worsen hope you feel better! Where: [facility] [address] [facility] (1) Follow Up with NO PRIM DR QUINTERO When Within 2 to 3 days Allergies No Known Medication Allergies Immunizations This Visit No Immunizations Found Medications What How Much When Instructions Next Dose acetaminophen (Tylenol Extra Strength 500 mg oral tablet) 1 Tablet(s) Oral Every 6 Hours as needed for for pain Duration: 5 Day(s) Pickup at [facility] methocarbamol (Robaxin 500 mg oral tablet) 2 Tablet(s) Oral Four Times A Day Duration: 7 Day(s) Pickup at [facility] aspirin (aspirin 81 mg oral tablet) 1 Tablet(s) Oral Every Day bisoprolol (bisoprolol 5 mg oral tablet) 0.5 Tablet(s) Oral Every Day bumetanide (Bumex) Every Day conjugated estrogens (Premarin 0.9 mg oral tablet) 1 Tablet(s) Oral Every Day meloxicam (meloxicam 7.5 mg oral tablet) Oral Every Day meloxicam (meloxicam 7.5 mg oral tablet) 1 Tablet(s) Oral Every Day Duration: 7 Day(s) Pickup at [facility] spironolactone (spironolactone 100 mg oral tablet) 1 Tablet(s) Oral Every Day [facility] [address] [address] [place] [phone] The home medications listed are only as [...] This Visit (last charted value for your 08/30/2018 visit) No Laboratory or Other Results This Visit Education Materials Knee Sprain, Adult A knee sprain is a stretch or tear in a knee ligament. Knee ligaments are bands of tissue that connect bones in the knee to each other. What are the causes? This condition often results from: ??? A fall. ??? An injury to the knee. What are the signs or symptoms? Symptoms of this condition include: ??? Trouble bending the leg. ??? Swelling in the knee. ??? Bruising around the knee. ??? Tenderness or pain in the knee. ??? Muscle spasms around the knee. How is this diagnosed? This condition may be diagnosed based on: ??? A physical exam. ??? What happened just before you started to have symptoms. ??? Tests, including: ? An X-ray. This may be done to make sure no bones are broken. ? An MRI. This may be done to check if the ligament is torn. ? Stress testing of the knee. This may be done to check ligament damage. How is this treated? Treatment for this condition may involve: ??? Keeping the knee still (immobilized) with a cast, brace, or splint. ??? Applying ice to the knee. This helps with pain and swelling. ??? Keeping the knee raised (elevated) above the level of your heart when you are resting. This helps with pain and swelling. ??? Taking medicine for pain. ??? Exercises to prevent or limit permanent weakness or stiffness in your knee. ??? Surgery to reconnect the ligament to the bone or to reconstruct it. This may be needed if the ligament tore all the way. Follow these instructions at home: If you have a splint or brace: ??? Wear the splint or brace as told by your health care provider. Remove it only as told by your health care provider. ??? Loosen the splint or brace if your toes tingle, become numb, or turn cold and blue. ??? Keep the splint or brace clean. ??? If the splint or brace is not waterproof: ? Do not let it get wet. ? Cover it with a watertight covering when you take a bath or a shower. If you have a cast: ??? Do not stick anything inside the cast to scratch your skin. Doing that increases your risk of infection. ??? Check the skin around the cast every day. Tell your health care provider about any concerns. ??? You may put lotion on dry skin around the edges of the cast. Do not put lotion on the skin underneath the cast. ??? Keep the cast clean. ??? If the cast is not waterproof: ? Do not let it get wet. ? Cover it with a watertight covering when you take a bath or a shower. Managing pain, stiffness, and swelling ??? If directed, put ice on the injured area. ? If you have a removable splint or brace, remove it as told by your health care provider. ? Put ice in a plastic bag. ? Place a towel between your skin and the bag or between your cast and the bag. ? Leave the ice on for 20 minutes, 2???3 times a day. ??? Gently move your toes often to avoid stiffness and to lessen swelling. ??? Elevate the injured area above the level of your heart while you are sitting or lying down. ??? Take sxdm-vir-vwepslp and prescription medicines only as told by your health care provider. General instructions ??? Do exercises as told by your health care provider. ??? Keep all follow-up visits as told by your health care provider. This is important. Contact a health care provider if: ??? You have pain that gets worse. ??? The cast, brace, or splint does not fit right. ??? The cast, brace, or splint gets damaged. Get help right away if: ??? You cannot use your injured joint to support any of your body weight (cannot bear weight). ??? You cannot move the injured joint. ??? You cannot walk more than a few steps without pain or without your knee buckling. ??? You have significant pain, swelling, or numbness below the cast, brace, or splint. This information is not intended to replace advice given to you by your health care provider. Make sure you discuss any questions you have with your health care provider. Document Released: 03/17/2006 Document Revised: 12/04/2016 Document Reviewed: 10/04/2016 [employer] Interactive Patient Education ?? 2019 [employer] Back Exercises If you have pain in your back, do these exercises 2???3 times each day or as told by your doctor. When the pain goes away, do the exercises once each day, but repeat the steps more times for each exercise (do more repetitions). If you do not have pain in your back, do these exercises once each day or as told by your doctor. Exercises Single Knee to Chest Do these steps 3???5 times in a row for each le. Lie on your back on a firm bed or the floor with your legs stretched out. 2. Bring one knee to your chest. 3. Hold your knee to your chest by grabbing your knee or thigh. 4. Pull on your knee until you feel a gentle stretch in your lower back. 5. Keep doing the stretch for 10???30 seconds. 6. Slowly let go of your leg and straighten it. Pelvic Tilt Do these steps 5???10 times in a row: 1. Lie on your back on a firm bed or the floor with your legs stretched out. 2. Bend your knees so they point up to the ceiling. Your feet should be flat on the floor. 3. Tighten your lower belly (abdomen) muscles to press your lower back against the floor. This will make your tailbone point up to the ceiling instead of pointing down to your feet or the floor. 4. Stay in this position for 5???10 seconds while you gently tighten your muscles and breathe evenly. Cat???Cow Do these steps until your lower back bends more easily: 1. Get on your hands and knees on a firm surface. Keep your hands under your shoulders, and keep your knees under your hips. You may put padding under your knees. 2. Let your head hang down, and make your tailbone point down to the floor so your lower back is round like the back of a cat. 3. Stay in this position for 5 seconds. 4. Slowly lift your head and make your tailbone point up to the ceiling so your back hangs low (sags) like the back of a cow. 5. Stay in this position for 5 seconds. Press-Ups Do these steps 5???10 times in a row: 1. Lie on your belly (face-down) on the floor. 2. Place your hands near your head, about shoulder-width apart. 3. While you keep your back relaxed and keep your hips on the floor, slowly straighten your arms to raise the top half of your body and lift your shoulders. Do not use your back muscles. To make yourself more comfortable, you may change where you place your hands. 4. Stay in this position for 5 seconds. 5. Slowly return to lying flat on the floor. Bridges Do these steps 10 times in a row: 1. Lie on your back on a firm surface. 2. Bend your knees so they point up to the ceiling. Your feet should be flat on the floor. 3. Tighten your butt muscles and lift your butt off of the floor until your waist is almost as high as your knees. If you do not feel the muscles working in your butt and the back of your thighs, slide your feet 1???2 inches farther away from your butt. 4. Stay in this position for 3???5 seconds. 5. Slowly lower your butt to the floor, and let your butt muscles relax. If this exercise is too easy, try doing it with your arms crossed over your chest. Belly Crunches Do these steps 5???10 times in a row: 1. Lie on your back on a firm bed or the floor with your legs stretched out. 2. Bend your knees so they point up to the ceiling. Your feet should be flat on the floor. 3. Cross your arms over your chest. 4. Tip your chin a little bit toward your chest but do not bend your neck. 5. Tighten your belly muscles and slowly raise your chest just enough to lift your shoulder blades a tiny bit off of the floor. 6. Slowly lower your chest and your head to the floor. Back Lifts Do these steps 5???10 times in a row: 1. Lie on your belly (face-down) with your arms at your sides, and rest your forehead on the floor. 2. Tighten the muscles in your legs and your butt. 3. Slowly lift your chest off of the floor while you keep your hips on the floor. Keep the back of your head in line with the curve in your back. Look at the floor while you do this. 4. Stay in this position for 3???5 seconds. 5. Slowly lower your chest and your face to the floor. Contact a doctor if: ??? Your back pain gets a lot worse when you do an exercise. ??? Your back pain does not lessen 2 hours after you exercise. If you have any of these problems, stop doing the exercises. Do not do them again unless your doctor says it is okay. Get help right away if: ??? You have sudden, very bad back pain. If this happens, stop doing the exercises. Do not do them again unless your doctor says it is okay. This information is not intended to replace advice given to you by your health care provider. Make sure you discuss any questions you have with your health care provider. Document Released: 04/19/2011 Document Revised: 10/22/2017 Document Reviewed: 05/11/2015 [employer] Interactive Patient Education ?? 2019 [employer]. Emergency Awareness and Preventative Care STROKE is [...] Assistance with quitting is available by contacting 5-857-ZJHB-NOW. This is a free resource providing counseling, [...] radiology, or pathology physicians. Patient Name:JESSICA SAWYER TRU Henry have received this information and was given the opportunity to ask questions. Patient/Contractor General Engineering Name: Patient/Contractor General Engineering Signature: Relationship to Patient: Clinician/Hospital Contractor General Engineering Signature: Please Provide a Telephone Number Where You Can Be Reached: Is it Permissible To Leave a Message? Date: documented in this encounter Plan of Treatment Not on file documented as of this encounter Visit Diagnoses Not on filedocumented in this encounter Care Teams Full Time Relationship Specialty Start Date End Date Manuel Bingham MD [address] [place] [address] PCP - General Family Medicine 07/31/24 documented as of this encounter
--- OUTSIDE RECORDS SUMMARY | 2024-10-25 12:49 | XMS_ITS | Encounter Summary ---
Author Organization [employer] ([place], [place], [place], [place]) Address [address] [place] [address] Care Team Providers Care In Store Marketer Name Role Phone Manuel Bingham MD Primary Care Provider + Encounter Details Date Type Department Care Team (Late st Contact Info) Description 02/27/2020 Transcribed Document [facility] [place] [address] [place] [address] ProviderJohn MD [address] [place] [address] Social History Tobacco Use Types Packs/Day Years Used Date Smoking Tobacco: Never Assessed Comments Unknown Sex and Gender Information Value Date Recorded Sex Assigned at Not on file Legal Sex Female 4:40 PM CDT Gender Identity Not on file Sexual Orientation Not on file documented as of this encounter Miscellaneous Notes * Cerner Conversion Note - Historical ProviderMD - 02/27/2020 9:22 PM CANDY WRAPPING MACHINE OPERATOR Broset Violence Assessment Entered On: 02/28/2020 2:53 EST Performed On: 02/27/2020 21:30 EST by Raman Peterson, Rn Broset Violence Assessment Broset Violence Checklist of Symptoms : None Broset Violence Symptoms Subtotal : 0 Broset Violence Symptoms Indicator : Low risk (0) Raman Peterson, Rn - 02/28/2020 2:43 EST Electronically signed by Sana [facility] Conversion Auto Clocks Repairer Cerner at 07/15/2022 8:10 AM CDT documented in this encounter Plan of Treatment Not on file documented as of this encounter Visit Diagnoses Not on filedocumented in this encounter Care Teams In Store Marketer Relationship Specialty Start Date End Date Manuel Bingham MD [address] [place] [address] PCP - General Family Medicine 07/31/24 documented as of this encounter
--- OUTSIDE RECORDS SUMMARY | 2024-10-25 12:49 | XMS_ITS | Encounter Summary ---
Author Organization [employer] ([place], [place], [place], [place]) Address [address] [place] [address] Care Team Providers Care Research Assoc Name Role Phone Manuel Bingham MD Primary Care Provider + Encounter Details Date Type Department Care Team (Late st Contact Info) Description 02/25/2020 Transcribed Document [facility] [place] [address] [place] [address] ProviderJohn MD [address] [place] [address] Social History Tobacco Use Types Packs/Day Years Used Date Smoking Tobacco: Never Assessed Comments Unknown Sex and Gender Information Value Date Recorded Sex Assigned at Not on file Legal Sex Female 4:40 PM CDT Gender Identity Not on file Sexual Orientation Not on file documented as of this encounter Miscellaneous Notes * Cerner Conversion Note - Historical ProviderMD - 02/25/2020 9:16 AM CORPORATE ETHICS OFFICER CR Chest 1 Vw Portable Ordered: 02/24/2020 Modified Reason for Exam: cough 02/25/2020 07:43 02/25/2020 09:16 (MITCHEL RAWLS PA) Reviewed by Provider, No further action required x1 documented in this encounter Plan of Treatment Not on file documented as of this encounter Visit Diagnoses Not on filedocumented in this encounter Care Teams Research Assoc Relationship Specialty Start Date End Date Manuel Bingham MD [address] [place] [phone] PCP - General Family Medicine 07/31/24 documented as of this encounter
--- OUTSIDE RECORDS SUMMARY | 2024-10-25 12:49 | XMS_ITS | Encounter Summary ---
Author Organization [employer] ([place], [place], [place], [place]) Address [address] [place] [address] Care Team Providers Care Fork Lift Mechanic Name Role Phone Manuel Bingham MD Primary Care Provider +1 Encounter Details Date Type Department Care Team (Late st Contact Info) Description 08/30/2018 Transcribed Document [facility] [place] Family Medicine [address] [place] [address] ProviderJohn MD [address] [place] [address] Social History Tobacco Use Types Packs/Day Years Used Date Smoking Tobacco: Never Assessed Comments Unknown Sex and Gender Information Value Date Recorded Sex Assigned at Not on file Legal Sex Female 4:40 PM CDT Gender Identity Not on file Sexual Orientation Not on file documented as of this encounter Miscellaneous Notes * Cerner Conversion Note - John ProviderMD - 08/30/2018 10:05 PM CDT ED Discharge Entered On: 08/30/2018 22:05 EDT Performed On: 08/30/2018 22:05 EDT by Kaitlin Campbell RN Discharge Process Patient Disposition : Discharge Personal Belongings With Patient : Yes Patient Education Completed : Yes Teaching Evaluation : Verbalizes understanding IV Discontinued : Not applicable Nursing Documentation Completed : Yes Kaitlin Campbell RN - 08/30/2018 22:05 EDT ED Discharge Discharge To : Home with ambulatory/outpatient follow-up Mode Of Departure : Ambulatory, Other: w/ crutches X2 Accompanied By : Unaccompanied Discharge Instructions Reviewed With, Opportunity For Questions Given : Patient Prescriptions Given to Patient : Yes Kaitlin Campbell, WILLEM - 08/30/2018 22:05 EDT Electronically signed by Sana [facility] Conversion Dehydration Plant Operator Cerner at 07/15/2022 8:23 AM CDT documented in this encounter Plan of Treatment Not on file documented as of this encounter Visit Diagnoses Not on filedocumented in this encounter Care Teams Fork Lift Mechanic Relationship Specialty Start Date End Date Manuel Bingham MD [address] [place] [address] PCP - General Family Medicine 07/31/24 documented as of this encounter
--- OUTSIDE RECORDS SUMMARY | 2024-10-25 12:49 | XMS_ITS | Encounter Summary ---
Author Organization [employer] ([place], [place], [place], [place]) Address [address] [place] [address] Care Team Providers Care Jtac Name Role Phone Manuel Bingham MD Primary Care Provider [phone] Encounter Details Date Type Department Care Team (Late st Contact Info) Description 07/19/2018 Transcribed Document [facility] [place] [address] [place] [address] ProviderJohn MD [address] [place] [address] Social History Tobacco Use Types Packs/Day Years [...] ProviderMD - 07/19/2018 7:12 PM CDT ED Assessment Entered On: 07/19/2018 19:40 EDT Performed On: 07/19/2018 19:39 EDT by CHERIE LUNA RN ED Quick Look Assessment Level of Consciousness : Alert, Awake Affect/Behavior : Appropriate, Calm Orientation : Oriented x 4 Skin Temperature : Warm CHERIE LUNA RN - 07/19/2018 19:39 EDT ED General-Functional Assess Information Obtained From : Patient Preferred Communication Mode : Verbal Communication Barrier : None Primary Language : Zimbabwean Any Spiritual/Cultural Needs or Requests : No Currently in Unsafe Situation : No CHERIE LUNA RN - 07/19/2018 19:39 EDT Social Habits Smoking Status : Never (less than 100 in lifetime; none in last 30 days) Smokeless Tobacco Status : Never Desires Tobacco Cessation Calc : 0 CHERIE LUNA RN - 07/19/2018 19:39 EDT Social History (As Of: 07/19/2018 19:40:10 EDT) Tobacco: Smoking Status Never smoker. (Last Updated: 12/22/2015 07:02:38 EDT by Pearl Espino, Rn) Alcohol: Alcohol Use History No. (Last Updated: 12/22/2015 07:02:42 EDT by Pearl Espino Rn) Substance Abuse: Drug Use Hx: No. (Last Updated: 12/22/2015 07:02:46 EDT by Pearl Espino Rn) Musculoskeletal Musculoskeletal Assessment WDL : WDL with exceptions Musculoskeletal Assessment Comment : patient fell at work on 06/02 and is complaining of lower back pain and left hip pain CHERIE LUNA RN - 07/19/2018 19:39 EDT Electronically signed by Sana [facility] Conversion Asset Protection Officer Cerner at 07/15/2022 8:02 AM CDT documented in this encounter Plan of Treatment Not on file documented as of this encounter Visit Diagnoses Not on filedocumented in this encounter Care Teams Jtac Relationship Specialty Start Date End Date Manuel Bingham MD [address] [place] [id number] PCP - General Family Medicine 07/31/24 documented as of this encounter
--- OUTSIDE RECORDS SUMMARY | 2024-10-25 12:49 | XMS_ITS | Encounter Summary ---
Author Organization [facility] Address [address] [place] [place] [address] Care Team Providers Care Vault Keeper Name Role Phone Arben Rao MD Primary Care Provider + [phone] Adeola Camara MD Unavailable Encounter Details Date Type Department Care Team (Late st Contact Info) Description 09/20/2024 Orders Only [facility] Sleep Disorder Center [address] [place] [address] Nicki Moeller Social History Tobacco Use Types Packs/Day Years [...] Procedure Name Priority Date/Time Associated Diagnosis Comments [facility] ORDER Routine 09/20/2024 10:07 AM EDT documented in this encounter Results * DME Order (09/20/2024 10:07 AM EDT) [facility] NAME [facility] DELIVERY STATUS Completed [facility] DELIVERY NOTE [facility] REQUESTED DELIVERY DATE 09/20/2024 [facility] ACTUAL DELIVERY DATE 09/20/2024 [facility] ITEM DESCRIPTION CPAP Machine, Resmed [facility] Comment: Qty: 1 Auto Min Pressure: 6 cm Auto Max Pressure: 16 cm Oxygen Usage: None [facility] ITEM DES[facility] PAP Mask, Fit to Comfort, 1 per 3 months [facility] Comment:Qty: 1 [facility] ITEM DESCRIPTION PAP Headgear, 1 per 6 months [facility] Comment:Qty: 1 [facility] ITEM DESCRIPTION PAP Humidifier, Heated [facility] Comment:Qty: 1 [facility] ITEM DESCRIPTION PAP Mask Interface Cushion, Fit to Comfort (A7031- 1 per month/ A7032- 2 per month/ A7033 - 2 per month) [facility] Comment:Qty: 1 [facility] ITEM DESCRIPTION Disposable PAP Filter, 2 per 1 month [facility] Comment:Qty: 1 [facility] ITEM DESCRIPTION Non-Disposable PAP Filter, 1 per 6 months [facility] Comment:Qty: 1 [facility] ITEM DESCRIPTION PAP Machine Tubing, Non-Heated, 1 per 3 months [facility] Comment:Qty: 1 [facility] ITEM DESCRIPTION PAP Monitoring, Per device availability [facility] Comment:Qty: 1 [facility] ITEM DESCRIPTION Humidifier Water Chamber, 1 per 6 months [facility] Comment:Qty: 1 [facility] ITEM DESCRIPTION PAP Chinstrap, 1 per 6 months [facility] Comment:Qty: 1 09/20/2024 10:0 7 AM EDT Rosita Sutton REAL ESTATE MANAGEMENT SPECIALIST DME ORDERABLES Final R esult [facility] documented in this encounter Visit Diagnoses Not on filedocumented in this encounter Additional Health Concerns Assessment Noted Time A fall risk assessment has been complete d for the patient 08/25/2024 7:49 PM EDT A Body Mass Index follow-up plan has been documented for the patient 08/26/2024 5:04 AM EDT documented as of this encounter Care Teams Vault Keeper Relationship Specialty Start Date End Date Arben Rao MD [address] [place] [id number] PCP - General 09/04/21 Adeola Camara MD [address] [facility] [address] [place] [address] Surgeon Neurosurgery 09/04/21 documented as of this encounter
--- OUTSIDE RECORDS SUMMARY | 2024-10-25 12:49 | XMS_ITS | Encounter Summary ---
Author Organization [employer] ([place], [place], [place], [place]) Address [address] [place] [address] Care Team Providers Care Steam Distribution Supervisor Name Role Phone Manuel Bingham MD Primary Care Provider + Encounter Details Date Type Department Care Team (Late st Contact Info) Description 02/28/2020 Transcribed Document [facility] [place] [address] [place] [address] ProviderJohn MD [address] [place] [address] Social History Tobacco Use Types Packs/Day Years Used Date Smoking Tobacco: Never Assessed Comments Unknown Sex and Gender Information Value Date Recorded Sex Assigned at Not on file Legal Sex Female 4:40 PM CDT Gender Identity Not on file Sexual Orientation Not on file documented as of this encounter Miscellaneous Notes * Cerner Conversion Note - Historical ProviderMD - 02/28/2020 2:28 PM RAILCAR BRAKE OPERATOR CR Chest 1 Vw Portable Ordered: 02/27/2020 Modified Reason for Exam: SOA 02/28/2020 07:43 02/28/2020 14:28 (BREANA LUU, BERNARDO-EMR) Reviewed by Provider, No further action required 02/28/2020 14:18 (CHESTER BENITEZ) Provider Review Required documented in this encounter Plan of Treatment Not on file documented as of this encounter Visit Diagnoses Not on filedocumented in this encounter Care Teams Steam Distribution Supervisor Relationship Specialty Start Date End Date Manuel Bingham MD [address] [place] [address] PCP - General Family Medicine 07/31/24 documented as of this encounter
--- OUTSIDE RECORDS SUMMARY | 2024-10-25 12:49 | XMS_ITS | Encounter Summary ---
Author Organization Healthcare Address [address] [place] [address] Care Team Providers Care Order Processing Manager Name Role Phone Arben Rao MD Primary Care Provider + [phone] Adeola Camara MD Unavailable Encounter Details Date Type Department Care Team (Late st Contact Info) Description 09/14/2024 Orders Only [facility] Sleep Disorder Center [address] [place] [address] Nicki Moeller Social History Tobacco [...] as of this encounter Plan of Treatment Pending Results Name Type Priority Associated Diagnoses Date /Time DME Order General Supply Routine 09/14/2024 2:41 PM EDT documented as of this encounter Visit Diagnoses Not on filedocumented in this encounter Additional Health Concerns Assessment Noted Time A fall risk assessment has been complete d for the patient 08/25/2024 7:49 PM EDT A Body Mass Index follow-up plan has been documented for the patient 08/26/2024 5:04 AM EDT documented as of this encounter Care Teams Order Processing Manager Relationship Specialty Start Date End Date Arben Rao MD [address] [place] [address] PCP - General 09/04/21 Adeola Camara MD [address] [id number] Surgeon Neurosurgery 09/04/21 documented as of this encounter
--- OUTSIDE RECORDS SUMMARY | 2024-10-25 12:49 | XMS_ITS | Encounter Summary ---
Author Organization Healthcare Address [address] [place] [address] Care Team Providers Care Manager Roofing Name Role Phone Arben Rao MD Primary Care Provider + [phone] Adeola Camara MD Unavailable Encounter Details Date Type Department Care Team (Late st Contact Info) Description 09/02/2024 Results Follow-Up [facility] Sleep Disorder Center [address] [place] [address] Esteban Sutton, BERNARDO [address] [place] [address] Social History Tobacco Use Types Packs/Day Years [...] as of this encounter Miscellaneous Notes * Addendum Note - Esteban Sutton APRN - 09/14/2024 11:20 AM EDTAddended by: ESTEBAN SUTTON on: 09/14/2024 11:20 AM Modules accepted: Orders * Telephone Encounter - Esteban Sutton APRN - 09/14/2024 11:17 AM EDT Spoke with patient regarding in-lab sleep study results which demonstrate mild sleep apnea with REIof 5.1 events/hr. Discussed JANAE diagnosis and prognosis including risks of untreated sleep apnea (heart arrhythmias, heart attack, stroke, etc.). Discussed treatment options and associated risks/benefits including CPAP, MAD, positional devices, weight loss. Recommended first line treatment of CPAP,which she is amenable to proceed with. Will send script to [employer] for CPAP machine and supplies. Advised that she will be contacted in 1-2 weeks, but if she is not contacted, she is to call our office for further guidance. The supply company will provide initial education regarding CPAP machine/supply use and maintenance. Encouraged to choose mask of her choice and call our office once she has received machine to schedule 31-90 day follow up required by insurance. CPAP is to be worn for all sleep. She is amenable to this plan and voices no concerns or questions at this time. Encouraged to call our office at any time. * Telephone Encounter - Esteban Sutton APRN - 09/02/2024 2:45 PM EDT Called the patient to review results, no answer, left VM. Will attempt to reach the patient again at a later time. documented in this encounter Plan of Treatment [...] documented as of this encounter Care Teams Manager Roofing Relationship Specialty Start Date End Date Arben Rao MD [address] [place] [address] PCP - General 09/04/21 Adeola Camara MD [address] [facility] [address] [place] [address] Surgeon Neurosurgery 09/04/21 documented as of this encounter
--- OUTSIDE RECORDS SUMMARY | 2024-10-25 12:49 | XMS_ITS | Encounter Summary ---
Author Organization [employer] ([place], [place], [place], [place]) Address [address] [place] [address] Care Team Providers Care Inside Parts Sales Name Role Phone Manuel Bingham MD Primary Care Provider + Encounter Details Date Type Department Care Team (Late st Contact Info) Description 02/24/2020 Transcribed Document [facility] [place] [address] [place] [address] ProviderJohn MD [address], [place] [id number] Social History Tobacco Use Types Packs/Day Years Used Date Smoking Tobacco: Never Assessed Comments Unknown Sex and Gender Information Value Date Recorded Sex Assigned at Not on file Legal Sex Female 4:40 PM CDT Gender Identity Not on file Sexual Orientation Not on file documented as of this encounter Miscellaneous Notes * Cerner Conversion Note - Historical ProviderMD - 02/24/2020 2:34 PM SOCIAL WORK MSW Broset Violence Assessment Entered On: 02/24/2020 16:22 EST Performed On: 02/24/2020 16:22 EST by LIS VASQUEZ RN Broset Violence Assessment Broset Violence Checklist of Symptoms : None Broset Violence Symptoms Subtotal : 0 Broset Violence Symptoms Indicator : Low risk (0) LIS VASQUEZ RN - 02/24/2020 16:22 EST Electronically signed by Sana [facility] Conversion State Fire Marshal Cerner at 07/15/2022 8:18 AM CDT documented in this encounter Plan of Treatment Not on file documented as of this encounter Visit Diagnoses Not on filedocumented in this encounter Care Teams Inside Parts Sales Relationship Specialty Start Date End Date Manuel Bingham MD [address] [place] [id number] PCP - General Family Medicine 07/31/24 documented as of this encounter
--- OUTSIDE RECORDS SUMMARY | 2024-10-25 12:49 | XMS_ITS | Encounter Summary ---
Author Organization [employer] ([place], [place], [place], [place]) Address [address] [place] [address] Care Team Providers Care Meter Maker Name Role Phone Manuel Bingham MD Primary Care Provider + Encounter Details Date Type Department Care Team (Late st Contact Info) Description 02/24/2020 Transcribed Document [facility] [place] [facility] [place] [address] ProviderJohn MD [address] [place] [address] Social History Tobacco Use Types Packs/Day Years Used Date Smoking Tobacco: Never Assessed Comments Unknown Sex and Gender Information Value Date Recorded Sex Assigned at Not on file Legal Sex Female 4:40 PM CDT Gender Identity Not on file Sexual Orientation Not on file documented as of this encounter Miscellaneous Notes * Cerner Conversion Note - Historical ProviderMD - 02/24/2020 2:54 PM DATA ENTRY MANAGER Patient: JESSICA SAWYER Age: 49 years Sex: Female : 1970 Associated Diagnoses: Clinical diagnosis of COVID-19 Author: PALLAVI LUU, MOLDER FOAM RUBBER-EMR Basic Information Time seen: Date & time 02/24/2020 14:54:00. History source: Patient. Arrival mode: Private vehicle. History limitation: None. Additional information: Chief Complaint from Nursing Triage Note : Chief Complaint 02/24/2020 14:47 EST Chief Complaint C/o fever and cough since 2 am . History of Present Illness The patient presents with cough and see note. 49 year old female presents to ED with cough and fever since this morning. 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 Denies soa or chest pain. . Review of Systems Constitutional symptoms: Fever. Skin symptoms: No rash, Eye symptoms: no recent vision change, no recent vision change. ENMT symptoms: No nasal congestion, Respiratory symptoms: Cough, No shortness of breath, Cardiovascular symptoms: No chest pain, no syncope. Gastrointestinal symptoms: No nausea, no vomiting. Musculoskeletal symptoms: No back pain, Neurologic symptoms: No altered level of consciousness, Hematologic/Lymphatic symptoms: Bruising tendency negative, Allergy/immunologic symptoms: No seasonal allergies, Health Status Allergies: Allergic Reactions (Selected) No Known Medication Allergies. Medications: (Selected) Prescriptions Prescribed albuterol CFC free 90 mcg/inh inhalation aerosol with adapter: 2 Puff, Inhalation, QID, 1 Each, 0 Refill(s) meloxicam 7.5 mg oral tablet: 1 Tab, [...] oral tablet: 1 Tab, Oral, Daily, 0 Refill(s), per nurse's notes. Immunizations: Per nurse's notes. Menstrual history: Per nurse's notes. Past Medical/ Family/ Social History Medical history Reviewed as documented in chart. Surgical history: heart cath. Endometrial Ablation. Cholecystectomy; (91496). colonoscopy. d&c. right carpal tunnel and right elbow. tubal. x2. needle biopsy in left breast., Reviewed as documented in chart. Family history: No family history items have been selected or recorded., Reviewed as documented in chart. Social history: Social & Psychosocial Habits Alcohol 12/22/2015 Alcohol Use History, Social Habits No Substance Abuse 12/22/2015 Recreational Drug Use History No Tobacco 12/22/2015 Smoking Status Never smoker , Reviewed as documented in chart. Problem list: Active Problems (5) Anxiety CHF (congestive heart failure) Endometriosis HTN S/P hysterectomy . Physical Examination Vital Signs Vital Signs/Vital Measures 02/24/2020 14:47 EST Systolic Blood Pressure 142 mmHg HI Diastolic Blood Pressure 72 mmHg Temperature Source Tympanic Temperature Mode Fahrenheit Temperature, Fahrenheit 98.6 Deg F Clinical Temperature, C 37 Deg C Peripheral Pulse Rate 92 bpm Respiratory Rate 18 Breaths/Min Oxygen Saturation 96 % . Measurements 02/24/2020 14:47 EST Height Source Stated Height Entry Format [place] Height/Length, [place] (ft) 5 ft Height/Length [place] 4 Inch CLINICALHEIGHT 162.56 cm [place] Body Weight 54.3 kg Weight Source, ED Critical estimated dosing weight Weight Entry Format [place] Weight [place]istan[place] lb 190 lb CLINICALWEIGHT 86.36 kg Body Surface Area (BSA) 1.92 m2 Body Mass Index 32.7 kg/m2 HI . Oxygen Saturation 02/24/2020 14:47 EST Oxygen Saturation 96 % . General: Alert. Skin: Intact. Head: Atraumatic. Neck: Supple. Eye: Vision unchanged. Ears, nose, mouth and throat: Oral mucosa moist. Cardiovascular: No edema. Respiratory: Respirations are non-labored. Chest wall: No deformity. Back: Normal range of motion. Musculoskeletal: No deformity. Gastrointestinal: Non distended. Neurological: Normal speech observed. Lymphatics Psychiatric: Cooperative. Medical Decision Making Differential Diagnosis:: Bronchitis, upper respiratory infection, asthma, pneumonia, congestive heart failure, chronic obstructive pulmonary disease, dyspnea. Documents reviewed: Emergency department nurses' notes. Orders Include Previous Orders (Selected) Inpatient Orders Ordered Isolation: Ordered (Exam Ordered) CR Chest 1 Vw Portable: Completed COVID-19: . Results review: Lab results : Lab Results 02/24/2020 14:51 EST Novel Coronavirus 2019 Positive . Notes: Does not meed criteria for bam treatment. Impression and Plan Diagnosis Clinical diagnosis of COVID-19 - Discharge, Emergency medicine, Medical Plan Condition: Stable. Disposition: Medically cleared, Discharged Admit/Transfer/Discharge: Discharge (Order): Start: 02/24/2020 16:17 EST, Discharge to: Home. Patient was given the following educational materials: COVID-19. Follow up with: JOVAN SIEGEL Within 2 to 3 days Rest, fluids, and follow up with pcp. Please self quarantine for 14 days. Return for resp distress or fever that doesnt respond to tylenol or motrin. I hope you feel better soon.-Pallavi. Counseled: Patient, Regarding diagnosis, Regarding diagnostic results, Regarding treatment plan, Regarding prescription, Patient indicated understanding of instructions. Electronically signed by Floyd Hood Conversion Glass Wool Blanket Machine Feeder Cerner at 07/15/2022 8:26 AM CDT documented in this encounter Plan of Treatment Not on file documented as of this encounter Visit Diagnoses Not on filedocumented in this encounter Care Teams Meter Maker Relationship Specialty Start Date End Date Manuel Bingham MD [address] [place] [address] PCP - General Family Medicine 07/31/24 documented as of this encounter
--- OUTSIDE RECORDS SUMMARY | 2024-10-25 12:49 | XMS_ITS | Encounter Summary ---
Author Organization [employer] ([place], [place], [place], [place]) Address [address] [place] [address] Care Team Providers Care Remote Recruiter Name Role Phone Manuel Bingham MD Primary Care Provider + [phone] Encounter Details Date Type Department Care Team (Late st Contact Info) Description 03/24/2019 Transcribed Document [facility] [place] [address] [place] [address] ProviderJohn MD [address] [place], [place] [address] Social History Tobacco Use Types Packs/Day Years Used Date Smoking Tobacco: Never Assessed Comments Unknown Sex and Gender Information Value Date Recorded Sex Assigned at Not on file Legal Sex Female 4:40 PM CDT Gender Identity Not on file Sexual Orientation Not on file documented as of this encounter Miscellaneous Notes * Cerner Conversion Note - Historical ProviderMD - 03/24/2019 2:47 PM STAFF DESIGN ENGINEER Patient: JESSICA SAWYER Age: 48 years Sex: Female : 1970 Associated Diagnoses: Chest pain, midsternal Author: PALLAVI LUU, DREDGE OPERATOR SUPERVISOR-EMR Basic Information Time seen: Date & time 03/24/2019 14:40:00. History source: Patient. Arrival mode: Private vehicle. History limitation: None. 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 CP STARTED AT REST, + SOA . History of Present Illness The patient presents with chest pain. The onset was 1 hours ago. The course/duration of symptoms is constant. Location: Anterior substernal chest. Radiating pain: none. The character of symptoms is pressure. The degree at onset was minimal. The degree at maximum was minimal. The degree at present is none. The exacerbating factor is none. The relieving factor is none. Risk factors consist of hypertension. Prior episodes: non-cardiac. Therapy today None. Associated symptoms: shortness of breath. 48 year old female with past medical hx of hypertension, anxiety, and total hysterectomy presents to ED with complaint of substernal cp, soa, and bilat lower extremity edema x 1 hour. Patient reports pain is in middle of of chest and is like a pressure. . Review of Systems Constitutional symptoms: No fever, no chills, no weakness. Skin symptoms: No rash, no breakdown, no lesion. Eye symptoms: no recent vision change, no discharge, no blurred vision. ENMT symptoms: No sore throat, no nasal congestion. Respiratory symptoms: Shortness of breath, No cough, Cardiovascular symptoms: Chest pain, peripheral edema, no palpitations, no syncope, no diaphoresis. Gastrointestinal symptoms: No abdominal pain, no nausea, no vomiting, no diarrhea, no rectal bleeding. Genitourinary symptoms: No dysuria, Musculoskeletal symptoms: No back pain, no Muscle pain, no Joint pain. Neurologic symptoms: No headache, no dizziness, no altered level of consciousness, no numbness, no tingling, no weakness. Psychiatric symptoms: No anxiety, Endocrine symptoms: No polyuria, no polydipsia. Hematologic/Lymphatic symptoms: Bleeding tendency negative, bruising tendency negative. Allergy/immunologic symptoms: No seasonal allergies, Health Status [...] Surgical history: heart cath. Endometrial Ablation. Cholecystectomy; (47649). colonoscopy. d&c. right carpal tunnel and right [...] Problems (4) Anxiety Endometriosis HTN S/P hysterectomy . Physical Examination Vital Signs Vital Signs/Vital Measures 03/24/2019 14:37 EST Systolic Blood Pressure 168 mmHg HI Diastolic Blood Pressure 73 mmHg Temperature Mode Fahrenheit Temperature, Fahrenheit 98.1 Deg F Clinical Temperature, C 36.7 Deg C Peripheral Pulse Rate 74 bpm Respiratory Rate 18 Breaths/Min Oxygen Saturation 97 % Oxygen Therapy Mode Room air . Measurements 03/24/2019 14:37 EST Height Source Stated Height Entry Format [place] Height/Length, [place] (ft) 5 ft Height/Length [place] 1 Inch CLINICALHEIGHT 154.94 cm [place] Body Weight 47.45 kg Weight Source, ED Standing scale Weight Entry Format [place] Weight Indonesian lb 200 lb CLINICALWEIGHT 90.91 kg Body Surface Area (BSA) 1.89 m2 Body Mass Index 37.9 kg/m2 HI . Oxygen Saturation 03/24/2019 14:37 EST Oxygen Saturation 97 % . General: Alert, no acute distress. Skin: Warm, intact, no rash. Head: Normocephalic, atraumatic. Neck: Supple, trachea midline. Eye: Pupils are equal, round and reactive to light, vision unchanged. Ears, nose, mouth and throat: Oral mucosa moist, no pharyngeal erythema or exudate. Cardiovascular: Regular rate and rhythm, No murmur, Normal peripheral perfusion, No edema, NO Bilat edema noted. Respiratory: Lungs are clear to auscultation, respirations are non-labored, breath sounds are equal, Symmetrical chest wall expansion. Chest wall: No deformity. Back: Normal range of motion, Normal alignment. Musculoskeletal: Normal ROM, no swelling, no deformity. Gastrointestinal: Soft, Nontender, Non distended, No organomegaly. Neurological: Alert and oriented to person, place, time, and situation, No focal neurological deficit observed, CN II-XII intact, normal motor observed, normal speech observed. Lymphatics Psychiatric: Cooperative, appropriate mood & affect, normal judgment. Medical Decision Making Differential Diagnosis: Unstable angina, angina, anxiety, pulmonary embolism, atypical chest pain, pneumonia, pleurisy, congestive heart failure. Documents reviewed: Emergency department nurses' notes. Orders Include Previous Orders (Selected) Inpatient Orders Ordered Cardiac Monitoring: ED Adult Fall Risk Assessment: ED C-SSRS: ED Clinical Reconciliation: ED corporate meeting planner: EKG: Saline Lock Insert: Ordered (Dispatched) CBC w/ Auto Diff: CMP Comprehensive Metabolic Panel: PT/INR Prothrombin Time: ProBNP: Troponin I Ultra: Ordered (Exam Ordered) CR Chest 1 Vw Portable: Completed ED Adult Triage: . Electrocardiogram: Time 03/24/2019 14:38:00, rate 80, normal sinus rhythm. Results review: Lab results : Lab Results 03/24/2019 15:18 EST Sodium Level 139 mmol/L Potassium Level 3.9 mmol/L Chloride Level 109 mmol/L Carbon Dioxide Level 27 mmol/L Anion Gap 7 LOW Glucose Level 105 mg/dL Blood Urea Nitrogen 24 mg/dL HI Creatinine Level 1.04 mg/dL HI eGFR >60 mL/min/1.73m2 eGFR NonAfrican 57 mL/min/1.73m2 LOW Bun/Creatinine 23.1 HI Calcium Level 9.1 mg/dL Protein Total 6.8 Gram/dL Albumin Level 3.3 Gram/dL LOW Globulin 3.5 Gram/dL A/G Ratio 0.9 LOW Bilirubin Total 0.2 mg/dL Alk Phos 66 Units/Liter AST 17 Units/Liter ALT 27 Units/Liter Troponin I Ultra <0.015 ng/mL ProBNP 101 pg/mL WBC 6.1 K/uL RBC 3.98 Million/uL Hgb 12.9 Gram/dL Hct 37.6 % MCV 94.5 fL MCH 32.4 pg HI MCHC 34.3 Gram/dL Platelet Count 210 K/uL MPV 11.3 fL RDW 12.6 % Neut % 58.8 % Neut # 3.57 K/uL Lymph % 30.3 % Lymph # 1.84 K/uL [place] % 8.1 % [place] # 0.49 K/uL Eos % 2.0 % Eos # 0.12 K/uL Baso % 0.8 % Baso # 0.05 K/uL Slide Review No PT 9.8 Second(s) INR 1.0 , Lab results : Lab Results 03/24/2019 16:29 EST Troponin I Ultra <0.015 ng/mL . Radiology results: Radiology Results (Last 48 hours) [id number] -- 03/24/2019 14:29 CR Chest 1 Vw Portable (03/24/2019 15:04) Result: PORTABLE CHEST 03/24/2019 2:46 PM HISTORY: Shortness of breath.COMPARISON: None.FINDINGS: The heart is normal in size . The mediastinum isunremarkable . The lungs are clear . There is no pneumothorax . Theosseous structures are unremarkable . IMPRESSION: No acute cardiopulmonary process .Images reviewed, interpreted, and dictated by Dr. Andre Grayson.Transcribed by Enrrique Montalvo PA-C.I have personally viewed, interpreted and dictated the examination. Ihave read and agree with the above final transcribed report. . Notes: Wells Criteria for Pulmonary Embolism Clinical signs & Symptoms of DVT? Yes+3 PE is #1 Diagnosis, or Equally Likely Yes+3 Heart Rate ?100? Yes+1.5 Immobilization at least 3 days, or Surgery in the previous 4 weeks Yes+1.5 Previous, Objectively diagnosed PE or DVT? Yes +1.5 Hemoptysis? Yes +1 Malignancy w/Treatment within 6 mo, or Palliative? Yes +1 Total Score ____0___ 0-1.5 Low Risk Group: 1.3% chance of PE in ED population. Another study assigned scores ?4 as 'PE Unlikely' and had a 3% incidence of PE. 2-6 Moderate risk group: 16.2% chance of PE in an ED population. Another study assigned scores >4 as 'PE Likely' and had a 28% incidence of PE. 6.5-12 High risk group: 40.6% chance of PE in an ED population. Another study assigned scores >4 as 'PE Likely' and had a 28% incidence of PE. . Reexamination/ Reevaluation Time: 03/24/2019 16:20:00 . Course: improving. Pain status. Notes: Reports is feeling better, pain only 2/10. denies soa at this time.. Impression and Plan Diagnosis Chest pain, midsternal - Discharge, Emergency medicine, Medical Plan Condition: Stable. Disposition: Medically cleared. Prescriptions: Prescription Naval Architect Specialist Pharmacy: naproxen 500 mg oral tablet (Prescribe): 1 Tab, Oral, BID, PRN: as needed for pain, 12 Tab, 0 Refill(s). Patient was given the following educational materials: Nonspecific Chest Pain. Follow up with: Follow up with primary care provider Within 2 to 3 days Rest, fluids, meds as directed. Please follow up with pcp in 1-2 days for recheck. Return to ER for new or worse symptoms. Feel better soon.-Pallavi. Counseled: Patient, Regarding diagnosis, Regarding diagnostic results, Regarding treatment plan, Regarding prescription, Patient indicated understanding of instructions. documented in this encounter Plan of Treatment Not on file documented as of this encounter Visit Diagnoses Not on filedocumented in this encounter Care Teams Remote Recruiter Relationship Specialty Start Date End Date Manuel Bingham MD [address] [place] [id number] PCP - General Family Medicine 07/31/24 documented as of this encounter
--- OUTSIDE RECORDS SUMMARY | 2024-10-25 12:49 | XMS_ITS | Encounter Summary ---
Author Organization [employer] ([place], [place], [place], [place]) Address [address] [place] [address] Care Team Providers Care Mergers And Acquisitions Banker Name Role Phone Manuel Bingham MD Primary Care Provider + Encounter Details Date Type Department Care Team (Late st Contact Info) Description 03/24/2019 Transcribed Document [facility] [place] [address] [place] [address] ProviderJohn MD [address] [place] [address] Social History Tobacco Use Types [...] - John ProviderMD - 03/24/2019 5:07 PM [place] [address] JESSICA SAWYER :1970 Visit Time:03/24/2019 Your Visit Summary Your Care Team Primary Provider: PALLAVI LUU APRN-EMR Secondary Provider: Your Diagnosis Chest pain Chest pain, midsternal Medical Information You may obtain a copy [...] do next Follow-Up Appointments Follow Up with Follow up with primary care provider When Within 2 to 3 days Comments Rest, fluids, meds as directed. Please follow up with pcp in 1-2 days for recheck. Return to ER for new or worse symptoms. Feel better soon.-Pallavi Allergies No Known Medication Allergies Immunizations This Visit No Immunizations Found Medications What How Much When Instructions Next Dose New naproxen (naproxen 500 mg oral tablet) 1 Tablet(s) Oral Two Times A Day as needed for as needed for pain Pickup at [facility]/pharmacy #[id number] Pharmacy Information [facility]/pharmacy #[id number]: [address] [place], [place] [id number] [phone] The home medications listed are only as [...] This Visit (last charted value for your 03/24/2019 visit) Hematology 03/24/2019 3:18 PM WBC: 6.1 K/uL -- Normal range between ( 3.9 and 10.0 ) RBC: 3.98 Million/uL -- Normal range between ( 3.93 and 5.22 ) Hct: 37.6 % -- Normal range between ( 34.1 and 44.9 ) Hgb: 12.9 Gram/dL -- Normal range between ( 11.2 and 15.7 ) Platelet Count: 210 K/uL -- Normal range between ( 163 and 369 ) MCH: 32.4 pg -- Normal range between ( 25.6 and 32.2 ) MCHC: 34.3 Gram/dL -- Normal range between ( 32.3 and 36.5 ) MCV: 94.5 fL -- Normal range between ( 79.0 and 94.8 ) Slide Review: No Eos %: 2.0 % -- Normal range between ( 1.0 and 7.0 ) Person #: 0.49 K/uL -- Normal range between ( 0.24 and 0.82 ) Eos #: 0.12 K/uL -- Normal range between ( 0.04 and 0.54 ) Person %: 8.1 % -- Normal range between ( 4.7 and 12.5 ) Baso %: 0.8 % -- Normal range between ( 0.0 and 1.0 ) Baso #: 0.05 K/uL -- Normal range between ( 0.01 and 0.08 ) RDW: 12.6 % -- Normal range between ( 11.6 and 14.4 ) Neut %: 58.8 % -- Normal range between ( 34.0 and 71.0 ) Neut #: 3.57 K/uL -- Normal range between ( 1.56 and 6.13 ) Lymph %: 30.3 % -- Normal range between ( 19.3 and 53.0 ) Lymph #: 1.84 K/uL -- Normal range between ( 1.18 and 3.74 ) MPV: 11.3 fL -- Normal range between ( 9.4 and 12.4 ) General Chemistry 03/24/2019 3:18 PM Creatinine Level: 1.04 mg/dL -- Normal range between ( 0.55 and 1.02 ) Sodium Level: 139 mmol/L -- Normal range between ( 136 and 146 ) Potassium Level: 3.9 mmol/L -- Normal range between ( 3.5 and 5.1 ) Chloride Level: 109 mmol/L -- Normal range between ( 102 and 112 ) Carbon Dioxide Level: 27 mmol/L -- Normal range between ( 21 and 32 ) Anion Gap: 7 -- Normal range between ( 9 and 20 ) Bilirubin Total: 0.2 mg/dL -- Normal range between ( 0.2 and 1.3 ) A/G Ratio: 0.9 -- Normal range between ( 1.1 and 2.5 ) ALT: 27 Units/Liter -- Normal range between ( 12 and 78 ) AST: 17 Units/Liter -- Normal range between ( 5 and 37 ) Globulin: 3.5 Gram/dL -- Normal range between ( 1.5 and 4.5 ) Alk Phos: 66 Units/Liter -- Normal range between ( 27 and 136 ) Bun/Creatinine: 23.1 -- Normal range between ( 8.0 and 20.0 ) Calcium Level: 9.1 mg/dL -- Normal range between ( 8.5 and 10.1 ) eGFR : >60 mL/min/1.73m2 eGFR NonAfrican: 57 mL/min/1.73m2 Glucose Level: 105 mg/dL -- Normal range between ( 74 and 106 ) Blood Urea Nitrogen: 24 mg/dL -- Normal range between ( 7 and 22 ) Protein Total: 6.8 Gram/dL -- Normal range between ( 6.4 and 8.2 ) Albumin Level: 3.3 Gram/dL -- Normal range between ( 3.4 and 5.0 ) Cardiac Specific Markers 03/24/2019 4:29 PM Troponin I Ultra: <0.015 ng/mL -- Normal range between ( 0.015 and 0.045 ) 03/24/2019 3:18 PM ProBNP: 101 pg/mL -- Normal range between ( 0 and 125 ) Coagulation 03/24/2019 3:18 PM INR: 1.0 -- Normal range between ( 0.9 and 1.1 ) PT: 9.8 Second(s) -- Normal range between ( 9.6 and 11.5 ) Diagnostic Radiology 03/24/2019 3:04 PM CR Chest 1 Vw Portable: CR Chest 1 Vw Portable Education [employer] Nonspecific Chest Pain Chest pain can be caused by many different conditions. There is always a chance that your pain could be related to something serious, such as a heart attack or a blood clot in your lungs. Chest pain can also be caused by conditions that are not life-threatening. If you have chest pain, it is very important to follow up with your health care provider. What are the causes? Causes of this condition include: ??? Heartburn. ??? Pneumonia or bronchitis. ??? Anxiety or stress. ??? Inflammation around your heart (pericarditis) or lung (pleuritis or pleurisy). ??? A blood clot in your lung. ??? A collapsed lung (pneumothorax). This can develop suddenly on its own (spontaneous pneumothorax) or from trauma to the chest. ??? Shingles infection (varicella-zoster virus). ??? Heart attack. ??? Damage to the bones, muscles, and cartilage that make up your chest wall. This can include: ? Bruised bones due to injury. ? Strained muscles or cartilage due to frequent or repeated coughing or overwork. ? Fracture to one or more ribs. ? Sore cartilage due to inflammation (costochondritis). What increases the risk? Risk factors for this condition may include: ??? Activities that increase your risk for trauma or injury to your chest. ??? Respiratory infections or conditions that cause frequent coughing. ??? Medical conditions or overeating that can cause heartburn. ??? Heart disease or family history of heart disease. ??? Conditions or health behaviors that increase your risk of developing a blood clot. ??? Having had chicken pox (varicella zoster). What are the signs or symptoms? Chest pain can feel like: ??? Burning or tingling on the surface of your chest or deep in your chest. ??? Crushing, pressure, aching, or squeezing pain. ??? Dull or sharp pain that is worse when you move, cough, or take a deep breath. ??? Pain that is also felt in your back, neck, shoulder, or arm, or pain that spreads to any of these areas. Your chest pain may come and go, or it may stay constant. How is this diagnosed? Lab tests or other studies may be needed to find the cause of your pain. Your health care provider may have you take a test called an ECG (electrocardiogram). An ECG records your heartbeat patterns at the time the test is performed. You may also have other tests, such as: ??? Transthoracic echocardiogram (TTE). In this test, sound waves are used to create a picture of the heart structures and to look at how blood flows through your heart. ??? Transesophageal echocardiogram (MARK). This is a more advanced imaging test that takes images from inside your body. It allows your health care provider to see your heart in finer detail. ??? Cardiac monitoring. This allows your health care provider to monitor your heart rate and rhythm in real time. ??? Holter monitor. This is a portable device that records your heartbeat and can help to diagnose abnormal heartbeats. It allows your health care provider to track your heart activity for several days, if needed. ??? Stress tests. These can be done through exercise or by taking medicine that makes your heart beat more quickly. ??? Blood tests. ??? Other imaging tests. How is this treated? Treatment depends on what is causing your chest pain. Treatment may include: ??? Medicines. These may include: ? Acid blockers for heartburn. ? Anti-inflammatory medicine. ? Pain medicine for inflammatory conditions. ? Antibiotic medicine, if an infection is present. ? Medicines to dissolve blood clots. ? Medicines to treat coronary artery disease (CAD). ??? Supportive care for conditions that do not require medicines. This may include: ? Resting. ? Applying heat or cold packs to injured areas. ? Limiting activities until pain decreases. Follow these instructions at home: Medicines ??? If you were prescribed an antibiotic, take it as told by your health care provider. Do not stop taking the antibiotic even if you start to feel better. ??? Take ossv-cft-vcewzmz and prescription medicines only as told by your health care provider. Lifestyle ??? Do not use any products that contain nicotine or tobacco, such as cigarettes and e-cigarettes. If you need help quitting, ask your health care provider. ??? Do not drink alcohol. ??? Make lifestyle changes as directed by your health care provider. These may include: ? Getting regular exercise. Ask your health care provider to suggest some activities that are safe for you. ? Eating a heart-healthy diet. A registered dietitian can help you to learn healthy eating options. ? Maintaining a healthy weight. ? Managing diabetes, if necessary. ? Reducing stress, such as with yoga or relaxation techniques. General instructions ??? Avoid any activities that bring on chest pain. ??? If heartburn is the cause for your chest pain, raise (elevate) the head of your bed about 6 inches (15 cm) by putting blocks under the legs. Sleeping with more pillows does not effectively relieve heartburn because it only changes the position of your head. ??? Keep all follow-up visits as told by your health care provider. This is important. This includes any further testing if your chest pain does not go away. Contact a health care provider if: ??? Your chest pain does not go away. ??? You have a rash with blisters on your chest. ??? You have a fever. ??? You have chills. Get help right away if: ??? Your chest pain is worse. ??? You have a cough that gets worse, or you cough up blood. ??? You have severe pain in your abdomen. ??? You have severe weakness. ??? You faint. ??? You have sudden, unexplained chest discomfort. ??? You have sudden, unexplained discomfort in your arms, back, neck, or jaw. ??? You have shortness of breath at any time. ??? You suddenly start to sweat, or your skin gets clammy. ??? You feel nauseous or you vomit. ??? You suddenly feel light-headed or dizzy. ??? Your heart begins to beat quickly, or it feels like it is skipping beats. These symptoms may represent a serious problem that is an emergency. Do not wait to see if the symptoms will go away. Get medical help right away. Call your local emergency services (911 in the [place] Do not drive yourself to the hospital. This information is not intended to replace advice given to you by your health care provider. Make sure you discuss any questions you have with your health care provider. Document Released: 12/25/2005 Document Revised: 12/09/2016 Document Reviewed: 12/09/2016 [employer] Patient Education ?? 2019 [employer]. Emergency Awareness and Preventative Care STROKE is [...] Assistance with quitting is available by contacting 6-858-IKFMNOW. This is a free resource providing counseling, [...] was given the opportunity to ask questions. Patient/Assembler Hydraulic Backhoe Name: Patient/Assembler Hydraulic Backhoe Signature: Relationship to Patient: Clinician/Hospital Assembler Hydraulic Backhoe Signature: Please Provide a Telephone Number Where You Can Be Reached: Is it Permissible To Leave a Message? Date: Electronically signed by Sana [facility] Conversion Check Writer Cerner at 07/15/2022 8:03 AM CDT documented in this encounter Plan of Treatment Not on file documented as of this encounter Visit Diagnoses Not on filedocumented in this encounter Care Teams Mergers And Acquisitions Banker Relationship Specialty Start Date End Date Manuel Bingham MD [address] [place] [address] PCP - General Family Medicine 07/31/24 documented as of this encounter
--- OUTSIDE RECORDS SUMMARY | 2024-10-25 12:49 | XMS_ITS | Encounter Summary ---
Author Organization Healthcare Address [address] [place] [address] Care Team Providers Care Medication Technician Name Role Phone Arben Rao MD Primary Care Provider [phone] Adeola Camara MD Unavailable Reason for Referral * Consultation (Routine) - Closed Specialty Diagnoses / Procedures Referred By Contac t Referred To Contact Neurosurgery Diagnoses Abnormal MRI, spine Arben Rao MD [address] [place] [address] Phone: tel: fax: Referral ID Status Reason Start Date Expiration Date V isits Requested Visits Authorized [id number] Closed Specialty Services Required 08/20/2021 02/19/2023 1 1 Encounter Details Date Type Department Care Team (Late st Contact Info) Description 08/20/2021 Community [facility] [address] [place] [address] Arben Rao MD [address] [id number] Abnormal MRI, spine (Primary Dx) Social History Tobacco Use Types Packs/Day Years Used Date Smoking Tobacco: Never Assessed Comments Unknown Sex and Gender Information Value Date Recorded Sex Assigned at Female 08/15/2022 9:25 PM EDT Legal Sex Female 7:46 PM EDT Gender Identity Female 08/15/2022 9:25 PM EDT Sexual Orientation Not on file documented as of this encounter Plan of Treatment Scheduled Referrals Name Type Priority Associated Diagnoses Order Schedule Ambulatory Referral to Neurosurgery Outpatient Referral Routine Abnormal MRI, spine 1 Occurrences starting 08/20/2021 until 11/20/2021 documented as of this encounter Visit Diagnoses Diagnosis Abnormal MRI, spine- Primary documented in this encounter Care Teams Medication Technician Relationship Specialty Start Date End Date Arben Rao MD [address] [place] [address] PCP - General 09/04/21 Adeola Camara MD [address] [facility] [address] [place] [address] Surgeon Neurosurgery 09/04/21 documented as of this encounter
--- OUTSIDE RECORDS SUMMARY | 2024-10-25 12:49 | XMS_ITS | Encounter Summary ---
Author Organization [employer] ([place], [place], [place], [place]) Address [address] [place] [address] Care Team Providers Care Ladies Locker Room Attendant Name Role Phone Manuel Bingham MD Primary Care Provider [phone] Encounter Details Date Type Department Care Team (Late st Contact Info) Description 08/30/2018 Transcribed Document [facility] [place] [facility] [place] [address] ProviderJohn MD [address] [place] [address] Social History Tobacco Use Types Packs/Day Years Used Date Smoking Tobacco: Never Assessed Comments Unknown Sex and Gender Information Value Date Recorded Sex Assigned at Not on file Legal Sex Female 4:40 PM CDT Gender Identity Not on file Sexual Orientation Not on file documented as of this encounter Miscellaneous Notes * Cerner Conversion Note - John ProviderMD - 08/30/2018 7:58 PM CDT ED Triage Entered On: 08/30/2018 20:16 EDT Performed On: 08/30/2018 20:13 EDT by CHERIE LUNA RN ED Triage Across the Room Triage Date/Time : 08/30/2018 20:13 EDT Chief Complaint : patient fellon 3/5 and today. patient is having pain in left groin and goes down her leg, and left hip CHERIE LUNA RN - 08/30/2018 20:13 EDT DCP GENERIC CODE Tracking Acuity : 4 - Non - Urgent Tracking Group : [facility] CHERIE LUNA RN - 08/30/2018 20:13 EDT Mode of Arrival : Ambulatory Transported to ED by : Private vehicle To Room Via : Ambulate Accompanied By : Unaccompanied ED Vital Signs : Document Height & Weight : Document ED Allergies : Document ED Reason for Visit : Document Tetanus Immunization : Less than 5 years CHERIE LUNA RN - 08/30/2018 20:13 EDT Infectious Disease History Infectious Disease History : None Fever/Chills Last 48 Hours : No Travel To Regions with Travel Advisories : No Travel Outside [place] Within Last 30 Days : No Contact With Traveler to Advisory Region : No Tuberculosis Symptoms : None CHERIE LUNA RN - 08/30/2018 20:13 EDT Vital Signs ED Temperature Source : Oral Temperature Mode : Fahrenheit Temperature, Fahrenheit : 98.4 Deg F ED Pain : Yes Clinical Temperature, C : 36.9 Deg C Oxygen Therapy Mode : Room air Peripheral Pulse Rate : 75 bpm Respiratory Rate : 19 Breaths/Min Blood Pressure Location : Arm, left upper Blood Pressure Source : Non-Invasive BP Device Systolic Blood Pressure : 142 mmHg (HI) Diastolic Blood Pressure : 77 mmHg Oxygen Saturation : 96 % CHERIE LUNA RN - 08/30/2018 20:13 EDT Allergy (As Of: 08/30/2018 20:16:40 EDT) Allergies (Active) No Known Medication Allergies Estimated Onset Date: Unspecified ; Created By: FRANKIE CRESPO RN; Reaction Status: Active ; Category: Drug ; Substance: No Known Medication Allergies ; Type: Allergy ; Updated By: FRANKIE CRESPO RN; Reviewed Date: 08/30/2018 20:15 EDT Diagnosis Control ED (As Of: 08/30/2018 20:16:40 EDT) Problems(Active) Anxiety (SNOMED CT :32689881 ) Name of Problem: Anxiety ; Recorder: Pearl Espino Rn; Confirmation: Confirmed ; Classification: Medical ; Code: [id number] ; Contributor System: [employer] ; Last Updated: 12/19/2016 10:22 EDT ; Life Cycle Date: 12/22/2015 ; Life Cycle Status: Active ; Vocabulary: SNOMED CT Endometriosis (SNOMED CT :7884884860 ) Name of Problem: Endometriosis ; Recorder: Pearl Espino Rn; Confirmation: Confirmed ; Classification: Medical ; Code: [id number] ; Contributor System: [employer] ; Last Updated: 12/22/2015 6:56 EDT ; Life Cycle Date: 12/22/2015 ; Life Cycle Status: Active ; Vocabulary: SNOMED CT HTN (SNOMED CT :7603310956 ) Name of Problem: HTN ; Recorder: Pearl Espino Rn; Confirmation: Confirmed ; Classification: Medical ; Code: [id number] ; Contributor System: [employer] ; Last Updated: 09/30/2016 16:39 EDT ; Life Cycle Date: 12/22/2015 ; Life Cycle Status: Active ; Vocabulary: SNOMED CT S/P hysterectomy (SNOMED CT :394524236 ) Name of Problem: S/P hysterectomy ; Recorder: BELIA VELÁZQUEZ RN; Confirmation: Confirmed ; Classification: Medical ; Code: [id number] ; Contributor System: [employer] ; Last Updated: 07/19/2018 19:29 EDT ; Life Cycle Date: 07/19/2018 ; Life Cycle Status: Active ; Vocabulary: SNOMED CT Diagnoses(Active) Fall Date: 08/30/2018 ; Diagnosis Type: Reason For Visit ; Confirmation: Complaint of ; Clinical Dx: Fall ; Classification: Medical ; Clinical Service: Emergency medicine ; Code: PNED ; Probability: 0 ; Diagnosis Code: [id number] ED Height and Weight Height Source : Stated Height Entry Format : [place] Height, Feet : 5 ft(Converted to: 152 cm, 60 Inch) Height, Inches : 0 Inch(Converted to: 0 ft 0 Inch, 0.00 cm) Clinical Height : 152.4 cm Weight Source, ED : Standing scale Weight Entry Format : [place] Weight, Pounds : 190 lb Clinical Dosing Weight : 86.36 kg Body Surface Area (BSA) : 1.83 m2 Body Mass Index : 37.2 kg/m2 (HI) [place] Body Weight (IBW) : 45.16 kg CHERIE LUNA RN - 08/30/2018 20:13 EDT Pain Assessment Pain Assessment : Initial assessment Pain Scale Used : 0-10 Scale CHERIE LUNA RN - 08/30/2018 20:13 EDT Pain Scale Intensity : 10 CHERIE LUNA RN - 08/30/2018 20:13 EDT Image 4 - Images currently included in the form version of this document have not been included in the text rendition version of the form. ED Influenza/Pneumoccocal Vaccine Influenza Immunization, Current Season : Yes Previous Vaccines from Immunization Schedule : No qualifying data available. CHERIE LUNA RN - 08/30/2018 20:13 EDT Electronically signed by Sana, [facility] Conversion Auger Machine Offbearer Cerner at 07/15/2022 8:13 AM CDT documented in this encounter Plan of Treatment Not on file documented as of this encounter Visit Diagnoses Not on filedocumented in this encounter Care Teams Ladies Locker Room Attendant Relationship Specialty Start Date End Date Manuel Bingham MD [address] [place] [address] PCP - General Family Medicine 07/31/24 documented as of this encounter
--- OUTSIDE RECORDS SUMMARY | 2024-10-25 12:49 | XMS_ITS | Encounter Summary ---
Author Organization [employer] ([place], [place], [place], [place]) Address [address] [place] [place] [address] Care Team Providers Care Farm Management Teacher Name Role Phone Manuel Bingham MD Primary Care Provider + [phone] Encounter Details Date Type Department Care Team (Late st Contact Info) Description 08/30/2018 Transcribed Document [facility] [place] Family Medicine [place] [address] ProviderJohn MD [address] [place] [address] Social History Tobacco Use Types Packs/Day Years Used Date Smoking Tobacco: Never Assessed Comments Unknown Sex and Gender Information Value Date Recorded Sex Assigned at Not on file Legal Sex Female 4:40 PM CDT Gender Identity Not on file Sexual Orientation Not on file documented as of this encounter Miscellaneous Notes * Cerner Conversion Note - John ProviderMD - 08/30/2018 9:48 PM CDT Patient: JESSICA SAWYER Age: 47 years Sex: Female : 1970 Associated Diagnoses: Fall; H/O fall; Sprain of lumbar region; Left knee sprain; Sprain of left elbow; Sprain of left hip Author: JOSE HEIN PA Basic Information Time seen: Immediately upon arrival. History source: Patient. Arrival mode: Private vehicle, walking. History limitation: None. Additional information: Chief Complaint from Nursing Triage Note : Chief Complaint 08/30/2018 20:13 EDT Chief Complaint patient fellon 3/5 and today. patient is having pain in left groin and goes down her leg, and left hip . History of Present Illness The patient presents following fall. The onset was 2 hours ago. The occurrence was single episode. The fall was described as tripped. The location where the incident occurred was at work. Location: left. The character of symptoms is pain. The degree at present is minimal. The exacerbating factor is changing position. The relieving factor is rest. Risk factors consist of none. Therapy today: none. Preceding symptoms none. Associated symptoms: denies chest pain, denies dizziness, denies syncope, denies headache, denies nausea, denies vomiting, denies abdominal pain, denies shortness of breath, denies loss of consciousness, denies fever and denies chills. pt states at work she fell and now her left hip/knee/elbow, back hurt. pt denies head injury, loc, n/v, fever, sp, sob, or other injury Review of Systems Constitutional symptoms: Negative except as documented in HPI. Skin symptoms: Negative except as documented in HPI. Eye symptoms: Negative except as documented in HPI. ENMT symptoms: Negative except as documented in HPI. Respiratory symptoms: Negative except as documented in HPI. Cardiovascular symptoms: Negative except as documented in HPI. Gastrointestinal symptoms: Negative except as documented in HPI. Genitourinary symptoms: Negative except as documented in HPI. Musculoskeletal symptoms: Negative except as documented in HPI. Neurologic symptoms: Negative except as documented in HPI. Psychiatric symptoms: Negative except as documented in HPI. Endocrine symptoms: Negative except as documented in HPI. Hematologic/Lymphatic symptoms: Negative except as documented in HPI. Allergy/immunologic symptoms: Negative except as documented in HPI. Health Status Allergies: Allergic Reactions (Selected) No Known Medication Allergies. Medications: (Selected) Documented Medications Documented Bumex: Daily, 0 Refill(s) [...] Daily, 0 Refill(s). Immunizations: Per nurse's notes. Menstrual history: Per nurse's notes. Past Medical/ Family/ Social History Medical history Reviewed as documented in chart. Surgical history: heart cath. Endometrial Ablation. Cholecystectomy; ([id number]). colonoscopy. d&c. right carpal tunnel and right [...] Physical Examination Vital Signs Vital Signs/Vital Measures 08/30/2018 20:13 EDT Temperature Source Oral Temperature Mode Fahrenheit Temperature, Fahrenheit 98.4 Deg F Clinical Temperature, C 36.9 Deg C Peripheral Pulse Rate 75 bpm Respiratory Rate 19 Breaths/Min Blood Pressure Location Arm, left upper Blood Pressure Source Non-Invasive BP Device Systolic Blood Pressure 142 mmHg HI Diastolic Blood Pressure 77 mmHg Oxygen Saturation 96 % Oxygen Therapy Mode Room air . Measurements 08/30/2018 20:13 EDT Height Source Stated Height Entry Format [place] Height/Length, [place] (ft) 5 ft Height/Length [place] 0 Inch CLINICALHEIGHT 152.4 cm [place] Body Weight 45.16 kg Weight Source, ED Standing scale Weight Entry Format [place] Weight [place] lb 190 lb CLINICALWEIGHT 86.36 kg Body Surface Area (BSA) 1.83 m2 Body Mass Index 37.2 kg/m2 HI . Oxygen Saturation 08/30/2018 20:13 EDT Oxygen Saturation 96 % . General: Alert, no acute distress. [place] coma scale: Total score: Total score: 15. Neurological: Alert and oriented to person, place, time, and situation, No focal neurological deficit observed, normal speech observed. Skin: Dry, intact, normal for ethnicity. Head: Normocephalic, atraumatic. Neck: Supple, trachea midline. Eye: Normal conjunctiva, vision grossly normal. Cardiovascular: Regular rate and rhythm, Normal peripheral perfusion. Respiratory: Lungs are clear to auscultation, respirations are non-labored. Chest wall: No tenderness, No deformity. Back: Lumbar: Diffuse, mild, tenderness, vertebral point tenderness, no swelling, no ecchymosis, no laceration, no abrasion, no step-off. Musculoskeletal: No deformity, Proximal upper extremity: Left, elbow, tenderness, range of motion normal, no swelling, no abrasion, no erythema, no ecchymosis, no laceration, no deformity, Lower extremity: Left, hip, knee, tenderness, range of motion (limited, restricted by pain), no swelling, no abrasion, no erythema, no ecchymosis, no effusion, no laceration, no deformity. Gastrointestinal: Nontender. Psychiatric: Cooperative, appropriate mood & affect. Medical Decision Making Differential Diagnosis: Fall, sprain, closed fracture not open fracture, not spinal cord injury, not head injury. Documents reviewed: Emergency department nurses' notes. Radiology results: Reported at 08/30/2018 21:50:00, X-ray, left elbow, knee, hip/pelvis, and lumbar spine, reveals no acute disease process, emergency physician interpretation: no acute abnormality, Fb seen from prior surgery. Reexamination/ Reevaluation Vital signs results included from flowsheet : Vital Measurements 08/30/2018 20:13 EDT Temperature Source Oral Temperature Mode Fahrenheit Temperature, Fahrenheit 98.4 Deg F Clinical Temperature, C 36.9 Deg C Peripheral Pulse Rate 75 bpm Respiratory Rate 19 Breaths/Min Blood Pressure Location Arm, left upper Blood Pressure Source Non-Invasive BP Device Systolic Blood Pressure 142 mmHg HI Diastolic Blood Pressure 77 mmHg Oxygen Saturation 96 % Oxygen Therapy Mode Room air abnormal vital signs addressed Pain status: decreased. Assessment: exam improved. pt in no distress. Discussed xr and pe findings, pt showed understanding and agreed to tmt plan and importance of f/up and what symptoms to return to ER for Splint type:марина wrap knee left w crutches Splint Location: Applioed by:exercise physiologist certified Supervised by: Patient is neurovascularly intact status post splint application. Alignment is good. Impression and Plan Diagnosis Complaint of Fall - Reason For Visit, Emergency medicine, Medical H/O fall - Discharge, Medical Sprain of lumbar region - Discharge, Medical Left knee sprain - Discharge, Medical Sprain of left elbow - Discharge, Medical Sprain of left hip - Discharge, Medical Plan Condition: Improved, Stable. Prescriptions: Prescription [facility]: meloxicam 7.5 mg oral tablet (Prescribe): 1 Tab, Oral, Daily, for 7 Day(s), 7 Tab, 0 Refill(s) Tylenol Extra Strength 500 mg oral tablet (Prescribe): 1 Tab, Oral, Q6H, for 5 Day(s), PRN: for pain, 24 Tab, 0 Refill(s) Robaxin 500 mg oral tablet (Prescribe): 2 Tab, Oral, QID, for 7 Day(s), 56 Tab, 0 Refill(s). Patient was given the following educational materials: Back Exercises, [id number], Knee Sprain, Adult. Follow up with: ZOILA QUINTERO Within 2 to 3 days; NARESH PARKS Within 2 to 3 days Call for follow up appointment with ortho if pain continues take meds as prescribed, use ice/heat and 2o min on and off and rom exercises return to er if symptoms worsen hope you feel better!. Counseled: Patient, Regarding diagnosis, Regarding diagnostic results, Regarding treatment plan, Regarding prescription. Electronically signed by Floyd Hood Conversion Electronic Equipment Trades Worker Cerner at 07/15/2022 8:20 AM CDT documented in this encounter Plan of Treatment Not on file documented as of this encounter Visit Diagnoses Not on filedocumented in this encounter Care Teams Farm Management Teacher Relationship Specialty Start Date End Date Manuel Bingham MD [address] [place] [id number] PCP - General Family Medicine 07/31/24 documented as of this encounter
--- OUTSIDE RECORDS SUMMARY | 2024-10-25 12:49 | XMS_ITS | Encounter Summary ---
Author Organization [employer] ([place], [place], [place], [place]) Address [address] [place] [address] Care Team Providers Care De Icer Name Role Phone Manuel Bingham MD Primary Care Provider [phone] Encounter Details Date Type Department Care Team (Late st Contact Info) Description 03/24/2019 Transcribed Document [facility] [place] Family Medicine [address] [place] [address] ProviderJohn MD [address] [place] [address] Social History Tobacco Use Types Packs/Day Years Used Date Smoking Tobacco: Never Assessed Comments Unknown Sex and Gender Information Value Date Recorded Sex Assigned at Not on file Legal Sex Female 4:40 PM CDT Gender Identity Not on file Sexual Orientation Not on file documented as of this encounter Miscellaneous Notes * Cerner Conversion Note - Historical ProviderMD - 03/24/2019 4:15 PM DIRECTOR SALES Pain Assessment Entered On: 03/24/2019 17:06 EST Performed On: 03/24/2019 17:06 EST by LAZARO KHALIL RN-Resource Intervention Information: ketorolac Performed by LAZARO KHALIL RN-Resource on 03/24/2019 16:29:00 EST ketorolac,15mg IV Push,Peripheral Line 1 Pain Assessment Pain Assessment : Follow-up assessment Pain Scale Used : 0-10 Scale Location : Chest LAZARO KHALIL RN-Resource - 03/24/2019 17:06 EST Pain Scale Intensity : 1 LAZARO KHALIL RN-Resource - 03/24/2019 17:06 EST Image 4 - Images currently included in the form version of this document have not been included in the text rendition version of the form. documented in this encounter Plan of Treatment Not on file documented as of this encounter Visit Diagnoses Not on filedocumented in this encounter Care Teams De Icer Relationship Specialty Start Date End Date Manuel Bingham MD [address] [place] [address] PCP - General Family Medicine 07/31/24 documented as of this encounter
--- OUTSIDE RECORDS SUMMARY | 2024-10-25 12:49 | XMS_ITS | Encounter Summary ---
Author Organization [employer] ([place], [place], [place], [place]) Address [address] [place] [address] Care Team Providers Care Tool Maintenance Technician Name Role Phone Manuel Bingham MD Primary Care Provider + Encounter Details Date Type Department Care Team (Late st Contact Info) Description 08/31/2018 Transcribed Document [facility] [place] [address] [place] [address] ProviderJohn MD [address] [place] [address] Social History Tobacco Use Types Packs/Day Years Used Date Smoking Tobacco: Never Assessed Comments Unknown Sex and Gender Information Value Date Recorded Sex Assigned at Not on file Legal Sex Female 4:40 PM CDT Gender Identity Not on file Sexual Orientation Not on file documented as of this encounter Miscellaneous Notes * Cerner Conversion Note - Historical ProviderMD - 08/31/2018 11:07 AM CDT CR Spine Lumbar 2 or 3 Vws Ordered: 08/30/2018 Auth (Verified) Reason for Exam: pain, fall 08/31/2018 08:54 CR Knee Min 4 Vws LT Ordered: 08/30/2018 Auth (Verified) Reason for Exam: pain 08/31/2018 08:54 CR Pelvis W Hip LT Lateral Ordered: 08/30/2018 Auth (Verified) Reason for Exam: trauma/pain 08/31/2018 08:54 CR Elbow Min 3 Vws LT Ordered: 08/30/2018 Auth (Verified) Reason for Exam: pain 08/31/2018 08:54 08/31/2018 11:07 (EMMA BROWNING PA-C) Reviewed by Provider, No further action required [id number] documented in this encounter Plan of Treatment Not on file documented as of this encounter Visit Diagnoses Not on filedocumented in this encounter Care Teams Tool Maintenance Technician Relationship Specialty Start Date End Date Manuel Bingham MD [address] [place] [address] PCP - General Family Medicine 07/31/24 documented as of this encounter
--- OUTSIDE RECORDS SUMMARY | 2024-10-25 12:49 | XMS_ITS | Encounter Summary ---
Author Organization [employer] ([place], [place], [place], [place]) Address [address] [place] [address] Care Team Providers Care Clinic Coordinator Name Role Phone Manuel Bingham MD Primary Care Provider + Encounter Details Date Type Department Care Team (Late st Contact Info) Description 02/24/2020 Transcribed Document [facility] [place] Family Medicine [address] [place] [address] ProviderJohn MD [address] [place] [address] Social History Tobacco Use Types Packs/Day Years Used Date Smoking Tobacco: Never Assessed Comments Unknown Sex and Gender Information Value Date Recorded Sex Assigned at Not on file Legal Sex Female 4:40 PM CDT Gender Identity Not on file Sexual Orientation Not on file documented as of this encounter Miscellaneous Notes * Cerner Conversion Note - Historical ProviderMD - 02/24/2020 2:34 PM PLASTIC FINISHER [place] Suicide Severity Rating Scale (C-SSRS) Entered On: 02/24/2020 16:22 EST Performed On: 02/24/2020 16:22 EST by LIS VASQUEZ RN [place] Suicide Severity Rating Scale (C-SSRS) CSSRS Past Month Wish to be : No CSSRS Past Month Suicidal Thoughts : No CSSRS Lifetime Suicide Behavior : No Suicide Severity Rating Score : 0 Suicide Severity Rating : No Additional Care Required at this time LIS VASQUEZ RN - 02/24/2020 16:22 EST documented in this encounter Plan of Treatment Not on file documented as of this encounter Visit Diagnoses Not on filedocumented in this encounter Care Teams Clinic Coordinator Relationship Specialty Start Date End Date Manuel Bingham MD [address] [place] [address] PCP - General Family Medicine 07/31/24 documented as of this encounter
--- OUTSIDE RECORDS SUMMARY | 2024-10-25 12:49 | XMS_ITS | Encounter Summary ---
Author Organization [employer] ([place], [place], [place], [place]) Address [address] [place] [address] Care Team Providers Care Dural Mechanic Name Role Phone Manuel iBngham MD Primary Care Provider + Encounter Details Date Type Department Care Team (Late st Contact Info) Description 03/24/2019 Transcribed Document [facility] [place] [address] [place] [address] ProviderJohn MD [address] [place] [address] Social History Tobacco Use Types Packs/Day Years Used Date Smoking Tobacco: Never Assessed Comments Unknown Sex and Gender Information Value Date Recorded Sex Assigned at Not on file Legal Sex Female 4:40 PM CDT Gender Identity Not on file Sexual Orientation Not on file documented as of this encounter Miscellaneous Notes * Cerner Conversion Note - John Frank MD - 03/24/2019 4:56 PM ANVIL SEATING PRESS OPERATOR CR Chest 1 Vw Portable Ordered: 03/24/2019 Modified Reason for Exam: chest pain 03/24/2019 15:54 03/24/2019 16:56 (BREANA LUU, ENGINEERING EQUIPMENT OPERATOR-EMR) Reviewed by Provider, No further action required x1 documented in this encounter Plan of Treatment Not on file documented as of this encounter Visit Diagnoses Not on filedocumented in this encounter Care Teams Dural Mechanic Relationship Specialty Start Date End Date Manuel Bingham MD [address] [place] [phone] PCP - General Family Medicine 07/31/24 documented as of this encounter
--- OUTSIDE RECORDS SUMMARY | 2024-10-25 12:49 | XMS_ITS | Encounter Summary ---
Author Organization [employer] ([place], [place], [place], [place]) Address [address] [place] [address] Care Team Providers Care Buckle Gluer Name Role Phone Manuel Bingham MD Primary Care Provider + Encounter Details Date Type Department Care Team (Late st Contact Info) Description 02/24/2020 Transcribed Document [facility] [place] [address] [place] [address] ProviderJohn MD [address] [id number] Social History Tobacco Use Types Packs/Day Years Used Date Smoking Tobacco: Never Assessed Comments Unknown Sex and Gender Information Value Date Recorded Sex Assigned at Not on file Legal Sex Female 4:40 PM CDT Gender Identity Not on file Sexual Orientation Not on file documented as of this encounter Miscellaneous Notes * Cerner Conversion Note - Historical ProviderMD - 02/24/2020 2:34 PM NURSING ADMIN ED Triage Entered On: 02/24/2020 14:49 EST Performed On: 02/24/2020 14:47 EST by RAMILA CHIU ED Triage Across the Room Chief Complaint : C/o fever and cough since 2 am Triage Date/Time : 02/24/2020 14:47 EST RAMILA CHIU - 02/24/2020 14:47 EST DCP GENERIC CODE Tracking Acuity : 4 - Non - Urgent Tracking Group : [facility] RAMILA CHIU - 02/24/2020 14:47 EST Mode of Arrival : Ambulatory Transported to ED by : Private vehicle To Room Via : Ambulate Accompanied By : Unaccompanied ED Vital Signs : Document Height & Weight : Document ED Allergies : Document ED Reason for Visit : Document Tetanus Immunization : Less than 5 years RAMILA CHIU 02/24/2020 14:47 EST Infectious Disease History Has the patient ever been tested for COVID-19? : Yes, Patient stated results Negative Date of COVID-19 test known? : No Does patient have symptoms of COVID-19? : No COVID19 Screening : No Experiencing Infectious Disease Symptoms : Subjective history of fever, Cough Physical contact outside [place] in the last 30 days : No Infectious Disease History : None Tuberculosis Symptoms : None RAMILA CHIU 02/24/2020 14:47 EST Vital Signs ED Temperature Source : Tympanic Temperature Mode : Fahrenheit Temperature, Fahrenheit : 98.6 Deg F Clinical Temperature, C : 37 Deg C Peripheral Pulse Rate : 92 bpm Respiratory Rate : 18 Breaths/Min Systolic Blood Pressure : 142 mmHg (HI) Diastolic Blood Pressure : 72 mmHg Oxygen Saturation : 96 % RAMILA CHIU 02/24/2020 14:47 EST Allergy (As Of: 02/24/2020 14:49:24 EST) Allergies (Active) No Known Medication Allergies Estimated Onset Date: Unspecified ; Created By: FRANKIE CRESPO RN; Reaction Status: Active ; Category: Drug ; Substance: No Known Medication Allergies ; Type: Allergy ; Updated By: FRANKIE CRESPO RN; Reviewed Date: 11/30/2019 1:08 EDT Diagnosis Control ED (As Of: 02/24/2020 14:49:24 EST) Problems(Active) Anxiety (SNOMED CT :94274514 ) Name of Problem: Anxiety ; Recorder: Pearl Espino RN; Confirmation: Confirmed ; Classification: Medical ; Code: [id number] ; Contributor System: [employer] ; Last Updated: 12/19/2016 10:22 EDT ; Life Cycle Date: 12/22/2015 ; Life Cycle Status: Active ; Vocabulary: SNOMED CT CHF (congestive heart failure) (SNOMED CT :67031594 ) Name of Problem: CHF (congestive heart failure) ; Recorder: RAMILA CHIU; Confirmation: Confirmed ; Classification: Medical ; Code: [id number] ; Contributor System: [employer] ; Last Updated: 02/24/2020 14:48 EST ; Life Cycle Date: 02/24/2020 ; Life Cycle Status: Active ; Vocabulary: SNOMED CT Endometriosis (SNOMED CT :6353013706 ) Name of Problem: Endometriosis ; Recorder: Pearl Espino RN; Confirmation: Confirmed ; Classification: Medical ; Code: [id number] ; Contributor System: [employer] ; Last Updated: 12/22/2015 6:56 EDT ; Life Cycle Date: 12/22/2015 ; Life Cycle Status: Active ; Vocabulary: SNOMED CT HTN (SNOMED CT :1119958043 ) Name of Problem: HTN ; Recorder: Pearl Espino RN; Confirmation: Confirmed ; Classification: Medical ; Code: [id number] ; Contributor System: [employer] ; Last Updated: 09/30/2016 16:39 EDT ; Life Cycle Date: 12/22/2015 ; Life Cycle Status: Active ; Vocabulary: SNOMED CT S/P hysterectomy (SNOMED CT :106973569 ) Name of Problem: S/P hysterectomy ; Recorder: BELIA VELÁZQUEZ RN; Confirmation: Confirmed ; Classification: Medical ; Code: [id number] ; Contributor System: [employer] ; Last Updated: 07/19/2018 19:29 EDT ; Life Cycle Date: 07/19/2018 ; Life Cycle Status: Active ; Vocabulary: SNOMED CT Diagnoses(Active) Cough Date: 02/24/2020 ; Diagnosis Type: Reason For Visit ; Confirmation: Complaint of ; Clinical Dx: Cough ; Classification: Medical ; Clinical Service: Emergency medicine ; Code: PNED ; Probability: 0 ; Diagnosis Code: [id number] ED Height and Weight Height Source : Stated Height Entry Format : [place] Height, Feet : 5 ft(Converted to: 152 cm, 60 Inch) Height, Inches : 4 Inch(Converted to: 0 ft 4 Inch, 10.16 cm) Clinical Height : 162.56 cm Weight Source, ED : Critical estimated dosing weight Weight Entry Format : [place] Weight, Pounds : 190 lb Clinical Dosing Weight : 86.36 kg Body Surface Area (BSA) : 1.92 m2 Body Mass Index : 32.7 kg/m2 (HI) [place] Body Weight (IBW) : 54.3 kg RAMILA CHIU 02/24/2020 14:47 EST documented in this encounter Plan of Treatment Not on file documented as of this encounter Visit Diagnoses Not on filedocumented in this encounter Care Teams Buckle Gluer Relationship Specialty Start Date End Date Manuel Bingham MD [address] [place] [address] PCP - General Family Medicine 07/31/24 documented as of this encounter
--- OUTSIDE RECORDS SUMMARY | 2024-10-25 12:49 | XMS_ITS | Encounter Summary ---
Author Organization [employer] ([place], [place], [place], [place]) Address [address] [place] [address] Care Team Providers Care Edge Bander Operator Name Role Phone Manuel Bingham MD Primary Care Provider + Encounter Details Date Type Department Care Team (Late st Contact Info) Description 11/29/2019 Transcribed Document [facility] [place] [facility] [place] [address] ProviderJohn MD [address] [place] [address] Social History Tobacco Use Types Packs/Day Years Used Date Smoking Tobacco: Never Assessed Comments Unknown Sex and Gender Information Value Date Recorded Sex Assigned at Not on file Legal Sex Female 4:40 PM CDT Gender Identity Not on file Sexual Orientation Not on file documented as of this encounter Miscellaneous Notes * Cerner Conversion Note - John ProviderMD - 11/29/2019 11:44 PM CDT [place] Suicide Severity Rating Scale (C-SSRS) Entered On: 11/30/2019 3:11 EDT Performed On: 11/30/2019 1:20 EDT by Sydni Guerra Rn [place] Suicide Severity Rating Scale (C-SSRS) CSSRS Past Month Wish to be : No CSSRS Past Month Suicidal Thoughts : No CSSRS Lifetime Suicide Behavior : No Suicide Severity Rating Score : 0 Suicide Severity Rating : No Additional Care Required at this time Sydni Guerra Rn - 11/30/2019 3:10 EDT documented in this encounter Plan of Treatment Not on file documented as of this encounter Visit Diagnoses Not on filedocumented in this encounter Care Teams Edge Bander Operator Relationship Specialty Start Date End Date Manuel Bingham MD [address] [place] [address] PCP - General Family Medicine 07/31/24 documented as of this encounter
--- OUTSIDE RECORDS SUMMARY | 2024-10-25 12:49 | XMS_ITS | Encounter Summary ---
Author Organization [employer] ([place], [place], [place], [place]) Address [address] [place] [address] Care Team Providers Care Blender/Braze Applicator Name Role Phone Manuel Bingham MD Primary Care Provider + Encounter Details Date Type Department Care Team (Late st Contact Info) Description 05/27/2019 Transcribed Document [facility] [place] [facility] [place] [address] ProviderJohn MD [address] [place], [place] [address] Social History Tobacco Use Types Packs/Day Years Used Date Smoking Tobacco: Never Assessed Comments Unknown Sex and Gender Information Value Date Recorded Sex Assigned at Not on file Legal Sex Female 4:40 PM CDT Gender Identity Not on file Sexual Orientation Not on file documented as of this encounter Miscellaneous Notes * Cerner Conversion Note - John ProviderMD - 05/27/2019 6:13 PM SONG AND DANCE PERFORMER ED Triage Entered On: 05/27/2019 18:35 EST Performed On: 05/27/2019 18:33 EST by LIS VASQUEZ RN ED Triage Across the Room Chief Complaint : Pt c/o sore throat, fever that started last night, took tylenol and motrin @ 3pm today. Triage Date/Time : 05/27/2019 18:33 EST LIS VASQUEZ RN - 05/27/2019 18:33 EST LIS VASQUEZ RN - 05/27/2019 18:33 EST DCP GENERIC CODE Tracking Group : [facility] ED [facility] LIS VASQUEZ RN - 05/27/2019 18:33 EST Tracking Acuity : 4 - Non - Urgent LIS VASQUEZ RN - 05/27/2019 18:36 EST Mode of Arrival : Ambulatory Transported to ED by : Private vehicle To Room Via : Ambulate Accompanied By : Unaccompanied ED Vital Signs : Document Height & Weight : Document ED Allergies : Document ED Reason for Visit : Document Tetanus Immunization : Less than 5 years LIS VASQUEZ RN - 05/27/2019 18:33 EST Infectious Disease History Physical contact outside [place] in the last 30 days : No Infectious Disease History : None Tuberculosis Symptoms : None LIS VASQUEZ RN - 05/27/2019 18:33 EST Vital Signs ED Temperature Source : Tympanic Temperature Mode : Fahrenheit Temperature, Fahrenheit : 100.5 Deg F (HI) Clinical Temperature, C : 38.1 Deg C Oxygen Therapy Mode : Room air Peripheral Pulse Rate : 92 bpm Respiratory Rate : 18 Breaths/Min Systolic Blood Pressure : 134 mmHg Diastolic Blood Pressure : 81 mmHg Oxygen Saturation : 95 % LIS VASQUEZ RN - 05/27/2019 18:33 EST Allergy (As Of: 05/27/2019 18:35:50 EST) Allergies (Active) No Known Medication Allergies Estimated Onset Date: Unspecified ; Created By: FRANKIE CRESPO RN; Reaction Status: Active ; Category: Drug ; Substance: No Known Medication Allergies ; Type: Allergy ; Updated By: FRANKIE CRESPO RN; Reviewed Date: 05/27/2019 18:34 EST Diagnosis Control ED (As Of: 05/27/2019 18:35:50 EST) Problems(Active) Anxiety (SNOMED CT :37043385 ) Name of Problem: Anxiety ; Recorder: Pearl Espino RN; Confirmation: Confirmed ; Classification: Medical ; Code: [id number] ; Contributor System: RatherGatherChart ; Last Updated: 12/19/2016 10:22 EDT ; Life Cycle Date: 12/22/2015 ; Life Cycle Status: Active ; Vocabulary: SNOMED CT Endometriosis (SNOMED CT :9364092791 ) Name of Problem: Endometriosis ; Recorder: Pearl Espino RN; Confirmation: Confirmed ; Classification: Medical ; Code: [id number] ; Contributor System: PowerChart ; Last Updated: 12/22/2015 6:56 EDT ; Life Cycle Date: 12/22/2015 ; Life Cycle Status: Active ; Vocabulary: SNOMED CT HTN (SNOMED CT :9696996555 ) Name of Problem: HTN ; Recorder: Pearl Espino RN; Confirmation: Confirmed ; Classification: Medical ; Code: [id number] ; Contributor System: RatherGatherChart ; Last Updated: 09/30/2016 16:39 EDT ; Life Cycle Date: 12/22/2015 ; Life Cycle Status: Active ; Vocabulary: SNOMED CT S/P hysterectomy (SNOMED CT :777932507 ) Name of Problem: S/P hysterectomy ; Recorder: BELIA VELÁZQUEZ RN; Confirmation: Confirmed ; Classification: Medical ; Code: [id number] ; Contributor System: PowerChart ; Last Updated: 07/19/2018 19:29 EDT ; Life Cycle Date: 07/19/2018 ; Life Cycle Status: Active ; Vocabulary: SNOMED CT Diagnoses(Active) Throat pain - Adult Date: 05/27/2019 ; Diagnosis Type: Reason For Visit ; Confirmation: Complaint of ; Clinical Dx: Throat pain - Adult ; Classification: Medical ; Clinical Service: Emergency medicine ; Code: PNED ; Probability: 0 ; Diagnosis Code: [id number] ED Height and Weight Height Source : Stated Height Entry Format : [place] Height, Feet : 5 ft(Converted to: 152 cm, 60 Inch) Height, Inches : 0 Inch(Converted to: 0 ft 0 Inch, 0.00 cm) Clinical Height : 152.4 cm Weight Source, ED : Critical estimated dosing weight Weight Entry Format : [place] Weight, Pounds : 193 lb Clinical Dosing Weight : 87.73 kg Body Surface Area (BSA) : 1.84 m2 Body Mass Index : 37.8 kg/m2 (HI) [place] Body Weight (IBW) : 45.16 kg LIS VASQUEZ RN - 05/27/2019 18:33 EST documented in this encounter Plan of Treatment Not on file documented as of this encounter Visit Diagnoses Not on filedocumented in this encounter Care Teams Blender/Braze Applicator Relationship Specialty Start Date End Date Manuel Bingham MD [address] [place] [address] PCP - General Family Medicine 07/31/24 documented as of this encounter
--- OUTSIDE RECORDS SUMMARY | 2024-10-25 12:49 | XMS_ITS | Clinical Summary ---
Author Organization Healthcare Address [address] [place] [address] Care Team Providers Care Complex Care Nurse Name Role Phone Arben Rao MD Primary Care Provider [phone] Adeola Camara MD Unavailable Allergies No known active allergies Medications ARIPiprazole (Abilify) 10 MG tablet 2 Active bisoprolol (Zebeta) 5 MG tablet TAKE ONE TABLET BY MOUTH EVERY DAY FOR hypertension 2 Active Symbicort 160-4.5 MCG/ACT inhaler Inhale 2 puffs 2 (two) times a day. 2 Active bumetanide (Bumex) 2 MG tablet 2 Active estradiol (Estrace) 1 MG tablet Take 1 mg by mouth 1 (one) time each day. 2 Active prazosin (Minipress) 1 MG capsule 2 Active omeprazole (PriLOSEC) [address] capsule TAKE ONE CAPSULE BY MOUTH EVERY DAY 30 minutes prior TO A meal DIRECTED 2 Active metoclopramide (Reglan) 10 MG tablet TAKE ONE TABLET BY MOUTH FOUR TIMES DAILY (BEFORE MEALS AND AT BEDTIME) 2 Active ipratropium-alb uterol (Duo-Neb) 0.5-2.5 mg/3 mL nebulizer solution INHALE THE CONTENTS OF 1 VIAL VIA NEBULIZER FOUR TIMES DAILY NEEDED FOR SHORTNESS OF BREATH OR WHEEZING 2 Active spironolactone (Aldactone) 100 MG tablet Take 100 mg by mouth 1 (one) time each day. 2 Active traZODone (Desyrel) 50 MG tablet 2 Active aspirin 81 MG EC tablet Take 81 mg by mouth 1 (one) time each day. Active acetaminophen-c odeine (Tylenol w/ Codeine #3) 300-30 MG tablet TAKE ONE TABLET BY MOUTH EVERY DAY MAY CAUSE DROWSINESS 5 Active atorvastatin (Lipitor) 10 MG tablet Take 1 tablet by mouth nightly. 5 Active busPIRone (Buspar) 10 MG tablet Take 2 tablets by mouth 2 times a day. 5 Active methocarbamol (Robaxin) 500 MG tablet TAKE ONE TABLET BY MOUTH TWICE DAILY MAY CAUSE DROWSINESS 5 Active tiZANidine (Zanaflex) 4 MG tablet TAKE ONE TABLET BY MOUTH EVERY DAY AT BEDTIME NEEDED MAY CAUSE DROWSINESS 5 Active traMADol (Ultram) 50 MG tablet take one tablet by mouth every 4 to 6 hours as needed for pain 4 Active Active Problems No known active problems Encounters Date Type Department Care Team Description 09/20/2024 Orders Only [facility] Sleep Disorder [address] [place] [address] Nicki Moeller 09/14/2024 Orders Only [facility] Sleep Disorder [address] [place] [address] Nicki Moeller 09/02/2024 Results Follow-Up [facility] Sleep Disorder [address] [place] [address] Rosita Sutton APRN 08/25/2024 8:15 PM EDT Clinical Support [facility] Sleep Disorder [address] [place] [address] David Gputa Snoring; History of sleep apnea; At risk for central sleep apnea; Excessive daytime sleepiness; Severe obesity (BMI >= 40) (CMS/HCC) 08/25/2024 Outside [facility] [address] [place] [place] [address] Madeleine Mireles MD JANAE (obstructive sleep apnea) (Primary Dx) 08/25/2024 Travel from Last 3 Months Social History Tobacco Use Types Packs/Day Years [...] PM EDT Sexual Orientation Not on file Last Filed Vital Signs Vital Sign Reading Time Taken Comments Blood Pressure 122/68 07/23/2024 10:35 AM EDT Pulse 70 07/23/2024 10:35 AM EDT Temperature - - Respiratory Rate - - Oxygen Saturation 96% 07/23/2024 10:35 AM EDT Inhaled Oxygen Concentration - - Weight 107 kg (235 lb) 08/25/2024 7:49 PM EDT Height 149.9 cm (4' 11 ) 08/25/2024 7:49 PM EDT Body Mass Index 47.46 08/25/2024 7:49 PM EDT Plan of Treatment Health Maintenance Due Date Last Done Comments [facility]-Depression Screening 1970 [facility]-HIV Screening 1970 [facility]-Hepatitis C Screening 1970 [facility]-Medicare Annual Wellness (AWV) 1970 [facility]-/Child/Adol SDOH Screenings 1970 [facility]- SDOH Screenings 1988 [facility]-Adult SDOH Screenings 1988 [facility]-Hepatitis B Vaccines (1 of 3 - 19+ 3-dose series) 1989 [facility]-Pap Smear 10/18/1991 [facility]-Cervical Cancer Screening 2000 [facility]-HPV/Cotest 2000 CT Colonography 10/18/2015 Colonoscopy 10/18/2015 [facility]-DNA 10/18/2015 FIT 10/18/2015 FOBT 10/18/2015 Sigmoidoscopy 10/18/2015 [facility]-Colorectal Cancer Screening 10/18/2015 [facility]-DTaP,Tdap,and Td Vaccine s (2 - Td or Tdap) 05/08/2016 05/08/2006 [facility]-Breast Cancer Screening 2020 [facility]-Zoster Vaccines (1 of 2) 2020 PUL-TYSUE-68 Vaccine (1 - season) 2023 [facility]-Influenza Vaccine (#1) 11/29/202403/04, 01/23/2022, 01/05/2021 [facility]-Hepatitis A Vaccines Aged Out 019, 03/12/2018 No longer eligible based on patient's age to complete this topic [facility]-Pneumococcal Vaccine: 50 + Years Completed 03/04/2024 [facility]-Obesity Intervention Completed 025, 07/23/2024 HPV Vaccines Aged Out No longer eligi ble based on patient's age to complete this topic [facility]-HIB Vaccines Aged Out No longer e ligible based on patient's age to complete this topic [facility]-IPV Vaccines Aged Out No longer e ligible based on patient's age to complete this topic [facility]-Rotavirus Vaccines Aged Out No lo nger eligible based on patient's age to complete this topic Procedures Procedure Name Priority Date/Time Associated Diagnosis Comments [facility] ORDER Routine 09/20/2024 10:07 AM EDT ADULT SLEEP STUDY OVERNIGHT POLYSOMNOGRAPHY Routine 08/25/2024 8:49 PM EDT Snoring History of sleep apnea At risk for central sleep apnea Excessive daytime sleepiness Severe obesity (BMI >= 40) ([facility]) from Last 3 Months Results * DME Order (09/20/2024 10:07 AM EDT) [facility] SUPPLIER NAME Therma-Wave [facility] D[facility] SUPPLIER PHONE [facility] D[facility] DELIVERY STATUS Completed [facility] DELIVERY NOTE [facility] D[facility] REQUESTED DELIVERY DATE 09/20/2024 [facility] ACTUAL DELIVERY DATE 09/20/2024 [facility] ITEM DESCRIPTION CPAP Machine, Resmed [facility] Comment: Qty: 1 Auto Min Pressure: 6 cm Auto Max Pressure: 16 cm Oxygen Usage: None [facility] ITEM DESCRIPTION PAP Mask, Fit to Comfort, 1 per 3 months [facility] Comment:Qty: 1 [facility] ITEM DESCRIPTION PAP Headgear, 1 per 6 months [facility] D[facility] Comment:Qty: 1 [facility] ITEM DESCRIPTION PAP Humidifier, Heated [facility] Comment:Qty: 1 [facility] ITEM DESCRIPTION PAP Mask Interface Cushion, Fit to Comfort (A7031- 1 per month/ A7032- 2 per month/ A7033 - 2 per month) [facility] Comment:Qty: 1 [facility] ITEM DESCRIPTION Disposable PAP Filter, 2 per 1 month [facility] Comment:Qty: 1 [facility] ITEM DESCRIPTION Non-Disposable PAP Filter, 1 per 6 months [facility] Comment:Qty: 1 [facility] ITEM DESCRIPTION PAP Machine Tubing, Non-Heated, 1 per 3 months [facility] Comment:Qty: 1 [facility] ITEM DESCRIPTION PAP Monitoring, Per device availability [facility] Comment:Qty: 1 [facility] ITEM DESCRIPTION Humidifier Water Chamber, 1 per 6 months [facility] Comment:Qty: 1 [facility] ITEM DESCRIPTION PAP Chinstrap, 1 per 6 months [facility] Comment:Qty: 1 09/20/2024 10:0 7 AM EDT Rosita Sutton CHILD SUPPORT AGENT DME ORDERABLES Final R esult [facility] D[facility] * Adult Sleep Study Overnight Polysomnography (08/25/2024 8:49 PM EDT) 08/25/2024 8:49 PM EDT Narrative [facility] - 09/01/2024 3:57 PM EDT General Information:See Media Viewer for report. This statement produced by Interface. us Rosita Sutton CHILD SUPPORT AGENT SLEEP CENTER ORDERABLES Final Result [facility] from Last 3 Months Insurance [facility] MEDIC[facility] Care Teams Complex Care Nurse Relationship Specialty Start Date End Date Arben Rao MD [address] [place] [address] PCP - General 09/04/21 Adeola Camara MD [id number] [place] [id number] Surgeon Neurosurgery 09/04/21
--- OUTSIDE RECORDS SUMMARY | 2024-10-25 12:49 | XMS_ITS | Encounter Summary ---
Author Organization [employer] ([place], [place], [place], [place]) Address [address] [place] [address] Care Team Providers Care Drug Safety Physician Name Role Phone Manuel Bingham MD Primary Care Provider + Encounter Details Date Type Department Care Team (Late st Contact Info) Description 07/19/2018 Transcribed Document [facility] [place] [facility] [place] [address] ProviderJohn MD [address] [place] [address] Social History Tobacco Use Types Packs/Day Years Used Date Smoking Tobacco: Never Assessed Comments Unknown Sex and Gender Information Value Date Recorded Sex Assigned at Not on file Legal Sex Female 4:40 PM CDT Gender Identity Not on file Sexual Orientation Not on file documented as of this encounter Miscellaneous Notes * Cerner Conversion Note - John ProviderMD - 07/19/2018 7:43 PM CDT Patient: JESSICA SAWYER Age: 47 years Sex: Female : 1970 Associated Diagnoses: Lumbar back pain Author: TONIA PARTIDA PA-UNK Basic Information Time seen: Date & time 07/19/2018 19:30:00. History source: Patient. Arrival mode: Private vehicle. History limitation: None. Additional information: Chief Complaint from Nursing Triage Note : Chief Complaint 07/19/2018 19:28 EDT Chief Complaint c/o fell at work on 06-02-2018 an dhurt her back and her left hip; patient has been taking PT but not helping any; lower back pain at 20 out of 10 ; unable to sleep and hurts with walking; . 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 ON 06/02/2018 IS GETTING WORSE. SHE WAS EMPLOYED THERE AT TIME AND TELL ME THAT WAS WORKING AND PUSHING A BOX ACROSS THE FLOOR. , FLOOR HAD A CRACK IN AND SUDDEN STOP OF BOX THEN SENT HE IN FALL ONTO LEFT HIP AND BACK. PAIN EVER SINCE. XRYS THAT EVENING THERE IN HOSPITAL WERE WNL . REFERRRD TO DR SHELLY BELLAMY FOR FOOLOW UP AND SHE JUST COMPLETED COURSE OF PT STATES THAT PT MADE SYMPTOMS WORSE. AND LAST VISIT FOR THIS WAS 4 DAY AGO AND NEEDLE PROCEDURE WAS CARRIED OUT. SHE HAS NEVER BEEN RX ANY PAIN MEDICATION. PAIN SHOOTS INTO LEFT GROIN AND LEG/ HIP. NO FURTHER FALLS TH O NO LOSS BOWEL OR BLADDER AND NO SADDLE NUMBNESS. GAIT WITH LEFT LEFT LIMP . The onset was 8 weeks ago. The course/duration of symptoms is constant, worsening and fluctuating in intensity. Type of injury: fall. The location where the incident occurred was at work. Location: Left lumbar sacral. Radiating pain: bilateral lower extremities. BUT LEFT IS MUCH WORSE . The character of symptoms is dull. The degree at onset was moderate. The degree at present is moderate. Prior episodes: none. Review of Systems Constitutional symptoms: Decreased activity, no fever, no chills. Skin symptoms: No rash, Respiratory symptoms: No shortness of breath, Cardiovascular symptoms: No chest pain, Gastrointestinal symptoms: No nausea, no vomiting, no diarrhea. Musculoskeletal symptoms: No back pain, Neurologic symptoms: No headache, no dizziness. Hematologic/Lymphatic symptoms: Bleeding tendency negative, bruising tendency negative. Additional review of systems information: All other systems reviewed and otherwise negative. Health Status Allergies: Allergic Reactions (Selected) No Known Medication Allergies. Medications: (Selected) Documented Medications Documented Premarin 0.9 mg oral tablet: 1 Tab, Oral, Daily, 30 Tab, 0 Refill(s) hydrochlorothiazide-lisinopril 12.5 mg-10 mg oral tablet: 1 Tab, Oral, Daily, 0 Refill(s) naproxen 500 mg oral tablet: 1 Tab, Oral, BID, PRN: Pain, 0 Refill(s) spironolactone 100 mg oral tablet: 1 Tab, Oral, Daily, 0 Refill(s). Immunizations: Up to date. Menstrual history: Per nurse's notes. Past Medical/ Family/ Social History Surgical history: heart cath. Endometrial Ablation. Cholecystectomy; (89326). colonoscopy. d&c. right carpal tunnel and right elbow. tubal. x2. needle biopsy in left breast.. Family history: Not significant. Social history: Social & Psychosocial Habits Alcohol 12/22/2015 Alcohol Use History, Social Habits No Substance Abuse 12/22/2015 Recreational Drug Use History No Tobacco 12/22/2015 Smoking Status Never smoker . Problem list: Active Problems (4) Anxiety Endometriosis HTN S/P hysterectomy . Physical Examination Vital Signs Vital Signs/Vital Measures 07/19/2018 19:28 EDT Temperature Source Oral Temperature Mode Fahrenheit Temperature, Fahrenheit 99 Deg F Clinical Temperature, C 37.2 Deg C Peripheral Pulse Rate 72 bpm Respiratory Rate 16 Breaths/Min Blood Pressure Location Arm, right upper Blood Pressure Source Non-Invasive BP Device Systolic Blood Pressure 125 mmHg Diastolic Blood Pressure 71 mmHg Oxygen Saturation 97 % Oxygen Therapy Mode Room air . Oxygen Saturation 07/19/2018 19:28 EDT Oxygen Saturation 97 % . General: Alert, no acute distress. Skin: Warm, dry, pink, no rash, normal for ethnicity. Eye: Normal conjunctiva. Cardiovascular: Regular rate and rhythm, Normal peripheral perfusion. Respiratory: Respirations are non-labored, Symmetrical chest wall expansion. Back: Lumbar: Midline, mild, tenderness, no ecchymosis, no abrasion, no step-off, Sacral: Midline, diffuse, not mild, Testing: Simulated spine rotation negative, straight leg raising, sitting/distracted negative. Musculoskeletal: Normal ROM, normal strength, no tenderness, no swelling. Neurological: No focal neurological deficit observed, normal sensory observed, normal motor observed, normal speech observed, normal coordination observed. Psychiatric: Cooperative, appropriate mood & affect, normal judgment. Medical Decision Making Radiology results: Radiology Results (Last 48 hours) [id number] -- 07/19/2018 19:12 CT Spine Lumbar WO (07/19/2018 20:13) Result: STUDY: CT Lumbar SpineCLINICAL HISTORY: Trauma.FINDINGS: Multiple contiguous transaxial slices through the spine wereobtained with coronal and sagittal reformatted images. This study wasperformed with techniques to keep radiation doses as low as reasonablyachievable, (ALARA). Individualized dose reduction techniques usingautomated exposure control or adjustment of mA and/or kV according tothe patient size were employed.There is no acute fracture or subluxation. There is diffuse endplateosteophytosis and facet hypertrophy. There are posterior discosteophyte complexes without significant canal compromise. Paravertebralsoft tissues are within normal limits.IMPRESSION: Degenerative changes but no acute abnormality. . Reexamination/ Reevaluation Time: 07/19/2018 20:55:00 . Vital signs IINFORMED OF ALL FNDINGS. SHE WILL F/U VERONIKA BELLAMY COPY OF DISC GIVEN Impression and Plan Diagnosis Lumbar back pain - Discharge, Emergency medicine, Medical Plan Condition: Stable. Disposition: Discharged Admit/Transfer/Discharge: Discharge (Order): Start: 07/19/2018 20:56 EDT, Discharge to: Home. Prescriptions: Prescription [facility]: cyclobenzaprine 10 mg oral tablet (Prescribe): 1 Tab, Oral, TID, for 10 Day(s), PRN: as needed for spasm, 30 Tab, 0 Refill(s) [place] 5 mg-325 mg oral tablet (Prescribe): 1 Tab, Oral, TID, for 2 Day(s), PRN: for pain, 6 Tab, 0 Refill(s), Prescription [facility]: Lidoderm 5% topical film (Prescribe): 1 Patch, TransDermal, Daily, for 5 Day(s), remove patches after 12 hours, PRN: BACK PAIN, 5 Patch, 0 Refill(s), In my professional medical judgment, Opioids and/or Other Controlled Substances (i.e. OOCS) are clinically indicated in the treatment of this patient based on the medical documentation contained in this chart. I attempted to query MARY BETH but a failure of some sort (i.e. MARY BETH down, Manual Process, technology failure at hospital, etc...) prevented me from obtaining a report. In my professional medical judgment, OOCS were appropriate and necessary even in the absence of a MARY BETH report. I counseled the patient as clinically appropriate about the risks and benefits of OOCS treatment.. Patient was given the following educational materials: Back Pain, Adult, [id number]-[id number], Heat Therapy, [id number]. Limitations: Limited activity. Follow up with: NO PRIM DR QUINTERO Within 2 to 3 days; SHELLY BELLAMY Within 2 to 3 days CALL THIS MD IN THE AM AND REPORT YOUR PAIN IS WORSE . Counseled: Patient, Regarding diagnosis, Regarding diagnostic results, Regarding treatment plan, Regarding prescription, Patient indicated understanding of instructions. Electronically signed by Sana, [facility] Conversion Retail Gift Card Merchandising Cerner at 07/15/2022 8:13 AM CDT documented in this encounter Plan of Treatment Not on file documented as of this encounter Visit Diagnoses Not on filedocumented in this encounter Care Teams Drug Safety Physician Relationship Specialty Start Date End Date Manuel Bingham MD [address] [place] [id number] PCP - General Family Medicine 07/31/24 documented as of this encounter
--- OUTSIDE RECORDS SUMMARY | 2024-10-25 12:49 | XMS_ITS | Encounter Summary ---
Author Organization [employer] ([place], [place], [place], [place]) Address [address] [place] [address] Care Team Providers Care Air Defense Artillery Officer Name Role Phone Manuel Bingham MD Primary Care Provider +1 Encounter Details Date Type Department Care Team (Late st Contact Info) Description 02/28/2020 Transcribed Document [facility] [place] Medicine [address] [place] [address] ProviderJohn MD [address] [place] [address] Social History Tobacco Use Types Packs/Day Years Used Date Smoking Tobacco: Never Assessed Comments Unknown Sex and Gender Information Value Date Recorded Sex Assigned at Not on file Legal Sex Female 4:40 PM CDT Gender Identity Not on file Sexual Orientation Not on file documented as of this encounter Miscellaneous Notes * Cerner Conversion Note - John ProviderMD - 02/28/2020 4:31 AM FLATWORK TIER Electronically signed by Sana [facility] Conversion Senior Windows Engineer Cerner at 07/15/2022 8:06 AM CDT documented in this encounter Plan of Treatment Not on file documented as of this encounter Visit Diagnoses Not on filedocumented in this encounter Care Teams Air Defense Artillery Officer Relationship Specialty Start Date End Date Manuel Bingham MD [address] [place] [address] PCP - General Family Medicine 07/31/24 documented as of this encounter
--- OUTSIDE RECORDS SUMMARY | 2024-10-25 12:49 | XMS_ITS | Encounter Summary ---
Author Organization [employer] ([place], [place], [place], [place]) Address [address] [place] [address] Care Team Providers Care Freight Car Inspector Name Role Phone Manuel Bingham MD Primary Care Provider + Encounter Details Date Type Department Care Team (Late st Contact Info) Description 02/27/2020 Transcribed Document [facility] [place] [address] [place] [address] ProviderJohn MD [address] [place] [address] Social History Tobacco Use Types Packs/Day Years Used Date Smoking Tobacco: Never Assessed Comments Unknown Sex and Gender Information Value Date Recorded Sex Assigned at Not on file Legal Sex Female 4:40 PM CDT Gender Identity Not on file Sexual Orientation Not on file documented as of this encounter Miscellaneous Notes * Cerner Conversion Note - Historical ProviderMD - 02/27/2020 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 ED Assessment Entered On: 02/28/2020 2:52 EST Performed On: 02/27/2020 21:30 EST by Raman Peterson, cnc mill programmer Quick Look Assessment Level of Consciousness : Alert, Awake Affect/Behavior : Appropriate, Calm, Cooperative Orientation : Oriented x 4 Skin Temperature : Warm Skin Description : Normal for ethnicity Raman Peterson, Rn - 02/28/2020 2:43 EST ED General-Functional Assess Preferred Communication Mode : Verbal Communication Barrier : None Primary Language : Surinamese Any Spiritual/Cultural Needs or Requests : No Currently in Unsafe Situation : No Raman Peterson, Rn - 02/28/2020 2:43 EST Social Habits Smoking Status : Never (less than 100 in lifetime; none in last 30 days) Smokeless Tobacco Status : Never Desires Tobacco Cessation Calc : 0 Raman Peterson Rn - 02/28/2020 2:43 EST Social History (As Of: 02/28/2020 02:52:50 EST) Tobacco: Smoking Status Never smoker. (Last Updated: 12/22/2015 07:02:38 EDT by Pearl Espino, RN) Alcohol: Alcohol Use History No. (Last Updated: 12/22/2015 07:02:42 EDT by Pearl Espino, RN) Substance Abuse: Drug Use Hx: No. (Last Updated: 12/22/2015 07:02:46 EDT by Pearl Espino, RN) Cardiovascular ASMT, ED Cardiovascular Assessment WDL : Raman Salmon Rn - 02/28/2020 2:43 EST Respiratory Respiratory Assessment WDL : WD with exceptions Cough : Able to clear secretions, Productive Respiratory Pattern Description : Regular Raman Peterson Rn - 02/28/2020 2:43 EST Gastrointestinal ED Gastrointestinal Assessment WDL : Raman Salmon Rn - 02/28/2020 2:43 EST Genitourinary Assessment, ED Genitourinary Assessment WDL : Raman Salmon Rn - 02/28/2020 2:43 EST Musculoskeletal Musculoskeletal Assessment WDL : Raman Salmon Rn - 02/28/2020 2:43 EST Integumentary Assessment Integumentary Assessment WDL : Raman Salmon Rn - 02/28/2020 2:43 EST Neurologic ASMT, ED Neurologic Assessment WDL : Raman Salmon Rn - 02/28/2020 2:43 EST Electronically signed by Sana [facility] Conversion Manager Business Cerner at 07/15/2022 8:22 AM CDT documented in this encounter Plan of Treatment Not on file documented as of this encounter Visit Diagnoses Not on filedocumented in this encounter Care Teams Freight Car Inspector Relationship Specialty Start Date End Date Manuel Bingham MD [address] [place] [address] PCP - General Family Medicine 07/31/24 documented as of this encounter
--- OUTSIDE RECORDS SUMMARY | 2024-10-25 12:49 | XMS_ITS | Encounter Summary ---
Author Organization [employer] ([place], [place], [place], [place]) Address [address] [place] [address] Care Team Providers Care Dexigraph Operator Name Role Phone Manuel Bingham MD Primary Care Provider +1 Encounter Details Date Type Department Care Team (Late st Contact Info) Description 02/24/[address] [facility] [place] [address] [place] [address] ProviderJohn MD [address] [place] [id number] Social History Tobacco Use Types Packs/Day Years Used Date Smoking Tobacco: Never Assessed Comments Unknown Sex and Gender Information Value Date Recorded Sex Assigned at Not on file Legal Sex Female 4:40 PM CDT Gender Identity Not on file Sexual Orientation Not on file documented as of this encounter Miscellaneous Notes * Cerner Conversion Note - John ProviderMD - 02/24/2020 4:18 PM MOTOR TESTER Electronically signed by Sana [facility] Conversion Armhole Feller Handstitching Machine Cerner at 07/15/2022 8:28 AM CDT documented in this encounter Plan of Treatment Not on file documented as of this encounter Visit Diagnoses Not on filedocumented in this encounter Care Teams Dexigraph Operator Relationship Specialty Start Date End Date Manuel Bingham MD [address] [place] [address] PCP - General Family Medicine 07/31/24 documented as of this encounter
--- OUTSIDE RECORDS SUMMARY | 2024-10-25 12:49 | XMS_ITS | Encounter Summary ---
Author Organization [employer] ([place], [place], [place], [place]) Address [address] [place] [address] Care Team Providers Care Telecommunications Repairer Name Role Phone Manuel Bingham MD Primary Care Provider +1 Encounter Details Date Type Department Care Team (Late st Contact Info) Description 02/24/2020 Transcribed Document [facility] [place] [facility] [place] [address] ProviderJohn MD [address] [place] [id number] Social History Tobacco Use Types Packs/Day Years Used Date Smoking Tobacco: Never Assessed Comments Unknown Sex and Gender Information Value Date Recorded Sex Assigned at Not on file Legal Sex Female 4:40 PM CDT Gender Identity Not on file Sexual Orientation Not on file documented as of this encounter Miscellaneous Notes * Cerner Conversion Note - Historical ProviderMD - 02/24/2020 4:12 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 documented in this encounter Plan of Treatment Not on file documented as of this encounter Visit Diagnoses Not on filedocumented in this encounter Care Teams Telecommunications Repairer Relationship Specialty Start Date End Date Manuel Bingham MD [address] [place] [address] [phone] PCP - General Family Medicine 07/31/24 documented as of this encounter
--- OUTSIDE RECORDS SUMMARY | 2024-10-25 12:49 | XMS_ITS | Encounter Summary ---
Author Organization [employer] ([place], [place], [place], [place]) Address [address] [place] [address] Care Team Providers Care Molding Associate Name Role Phone Manuel Bingham MD Primary Care Provider + Encounter Details Date Type Department Care Team (Late st Contact Info) Description 11/30/2019 Transcribed Document [facility] [place] [address] ProviderJohn MD [address] [place] [address] Social History Tobacco Use Types Packs/Day Years Used Date Smoking Tobacco: Never Assessed Comments Unknown Sex and Gender Information Value Date Recorded Sex Assigned at Not on file Legal Sex Female 4:40 PM CDT Gender Identity Not on file Sexual Orientation Not on file documented as of this encounter Miscellaneous Notes * Cerner Conversion Note - Historical ProviderMD - 11/30/2019 2:52 PM CDT CR Chest 1 Vw Portable Ordered: 11/30/2019 Modified Reason for Exam: cp 11/30/2019 07:47 11/30/2019 14:52 (EMMA BROWNING PA-C) Reviewed by Provider, No further action required x1 documented in this encounter Plan of Treatment Not on file documented as of this encounter Visit Diagnoses Not on filedocumented in this encounter Care Teams Molding Associate Relationship Specialty Start Date End Date Manuel Bingham MD [address] [place] [address] [phone] PCP - General Family Medicine 07/31/24 documented as of this encounter
--- OUTSIDE RECORDS SUMMARY | 2024-10-25 12:49 | XMS_ITS | Encounter Summary ---
Author Organization [employer] ([place], [place], [place], [place]) Address [address] [place] [address] Care Team Providers Care Mail Superintendent Name Role Phone Manuel Bingham MD Primary Care Provider + Encounter Details Date Type Department Care Team (Late st Contact Info) Description 02/27/2020 Transcribed Document [facility] [place] [address] [place] [address] ProviderJohn MD [address] [place] [address] Social History Tobacco Use Types Packs/Day Years Used Date Smoking Tobacco: Never Assessed Comments Unknown Sex and Gender Information Value Date Recorded Sex Assigned at Not on file Legal Sex Female 4:40 PM CDT Gender Identity Not on file Sexual Orientation Not on file documented as of this encounter Miscellaneous Notes * Cerner Conversion Note - Historical ProviderMD - 02/27/2020 9:22 PM 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 [place] Suicide Severity Rating Scale (C-SSRS) Entered On: 02/28/2020 2:53 EST Performed On: 02/27/2020 21:30 EST by Raman Peterson, Rn [place] Suicide Severity Rating Scale (C-SSRS) CSSRS Past Month Wish to be : No CSSRS Past Month Suicidal Thoughts : No CSSRS Lifetime Suicide Behavior : No Suicide Severity Rating Score : 0 Suicide Severity Rating : No Additional Care Required at this time Raman Peterson, Rn - 02/28/2020 2:43 EST Electronically signed by Sana [facility] Conversion Hi Ranger Operator Cerner at 07/15/2022 8:06 AM CDT documented in this encounter Plan of Treatment Not on file documented as of this encounter Visit Diagnoses Not on filedocumented in this encounter Care Teams Mail Superintendent Relationship Specialty Start Date End Date Manuel Bingham MD [address] [place] [address] PCP - General Family Medicine 07/31/24 documented as of this encounter
--- OUTSIDE RECORDS SUMMARY | 2024-10-25 12:50 | XMS_ITS | Encounter Summary ---
Author Organization [employer] ([place], [place], [place], [place]) Address [address] [place] [address] Care Team Providers Care Deputy Felony Clerk Name Role Phone Manuel Bingham MD Primary Care Provider + Encounter Details Date Type Department Care Team (Late st Contact Info) Description 11/29/2019 Transcribed Document [facility] [place] [address] [place] [address] ProviderJohn MD [address] [place] [address] Social History Tobacco Use Types Packs/Day Years Used Date Smoking Tobacco: Never Assessed Comments Unknown Sex and Gender Information Value Date Recorded Sex Assigned at Not on file Legal Sex Female 4:40 PM CDT Gender Identity Not on file Sexual Orientation Not on file documented as of this encounter Miscellaneous Notes * Cerner Conversion Note - John ProviderMD - 11/29/2019 11:44 PM CDT ED Assessment Entered On: 11/30/2019 3:15 EDT Performed On: 11/30/2019 3:11 EDT by Sydni Guerra, sports official Quick Look Assessment Level of Consciousness : Alert, Awake Affect/Behavior : Appropriate, Calm, Cooperative Orientation : Oriented x 4 Skin Temperature : Warm Skin Description : Normal for ethnicity Sydni Guerra Rn - 11/30/2019 3:11 EDT ED General-Functional Assess Information Obtained From : Patient Preferred Communication Mode : Verbal Communication Barrier : None Primary Language : Somali Any Spiritual/Cultural Needs or Requests : No Currently in Unsafe Situation : No Sydni Guerra Rn - 11/30/2019 3:11 EDT Social Habits Smoking Status : Never (less than 100 in lifetime; none in last 30 days) Smokeless Tobacco Status : Never Desires Tobacco Cessation Calc : 0 Sydni Guerra Rn - 11/30/2019 3:11 EDT Social History (As Of: 11/30/2019 03:15:17 EDT) Tobacco: Smoking Status Never smoker. (Last Updated: 12/22/2015 07:02:38 EDT by Pearl Espino RN) Alcohol: Alcohol Use History No. (Last Updated: 12/22/2015 07:02:42 EDT by Pearl Espino RN) Substance Abuse: Drug Use Hx: No. (Last Updated: 12/22/2015 07:02:46 EDT by Pearl Espino RN) Cardiovascular ASMT, ED Cardiovascular Assessment WDL : WDL with exceptions Cardiovascular Symptoms : Dyspnea at rest, Dyspnea with activity, Pressure at rest, Pressure with activity Heart Rhythm : Regular Nail Bed Color : Carmine Chest Pain : No Sydni Guerra Rn - 11/30/2019 3:11 EDT Pulses Grid Radial Pulse, Left : 2+ normal Radial Pulse, Right : 2+ normal Sydni Guerra Rn - 11/30/2019 3:11 EDT Neck Vein Distention : Unable to visualize Capillary Refill, Left Hand : Less than/Equal to (</=) 2 seconds Capillary Refill, Right Hand : Less than/Equal to (</=) 2 seconds Clubbing Present : No Heart Sounds : S1/S2 Sydni Guerra Rn - 11/30/2019 3:11 EDT Electronically signed by Sana [facility] Conversion Chain Maker Hand Cerner at 07/15/2022 8:09 AM CDT documented in this encounter Plan of Treatment Not on file documented as of this encounter Visit Diagnoses Not on filedocumented in this encounter Care Teams Deputy Felony Clerk Relationship Specialty Start Date End Date Manuel Bingham MD [address] [place] [address] PCP - General Family Medicine 07/31/24 documented as of this encounter
--- OUTSIDE RECORDS SUMMARY | 2024-10-25 12:50 | XMS_ITS | Clinical Summary ---
Author Organization [employer] ([place], [place], [place], [place]) Address [address] [place] [address] Care Team Providers Care Carburetor Expert Name Role Phone Manuel Bingham MD Primary Care Provider +1 Allergies No known active allergies Medications bisoprolol (ZEBETA) 5 MG tablet Take 1 tablet (5 mg total) by mouth daily. Active atorvastatin (LIPITOR) 10 MG tablet Take 1 tablet (10 mg total) by mouth nightly. 07/13/2024 Active busPIRone (BUSPAR) 10 MG tablet Take 2 tablets (20 mg total) by mouth 2 (two) times daily. 05/20/2024 Active Encounters Date Type Department Care Team Description 07/31/2024 9:59 PM EDT - 08/01/2024 1:23 AM EDT Emergency [facility] Emergency Department [address] [place] [id number] Carlos Casarez MD Generalized abdominal pain (Primary Dx) Discharge Disposition: Home or Self Care 07/31/2024 Travel from Last 3 Months Social History Tobacco Use Types Packs/Day Years Used Date Smoking Tobacco: Never Assessed Comments Unknown Sex and Gender Information Value Date Recorded Sex Assigned at Not on file Legal Sex Female 4:40 PM CDT Gender Identity Not on file Sexual Orientation Not on file Last Filed Vital Signs Vital Sign Reading Time Taken Comments Blood Pressure 145/63 08/01/2024 12:35 AM EDT Pulse 85 08/01/2024 12:35 AM EDT Temperature 36.7 C (98 F) 07/31/2024 9:53 PM EDT Respiratory Rate 18 07/31/2024 9:53 PM EDT Oxygen Saturation 94% 08/01/2024 12:35 AM EDT Inhaled Oxygen Concentration - - Weight 104.3 kg (230 lb) 08/01/2024 1:05 AM EDT Height - - Body Mass Index - - Plan of Treatment Health Maintenance Due Date Last Done Comments CT Colonography 1970 Colonoscopy 1970 Colorectal Cancer Screening 1970 FOBT/FIT 1970 Fit-DNA (Cologuard) 1970 Sigmoidoscopy 1970 Depression Screening (12+) 1982 Tobacco Cessation Counseling and Screening (12+) 10/17 HIV Screening 1985 Hepatitis C Screening 1988 Pap Smear 10/18/1991 Breast Cancer Screening 2010 Lipid Panel 10/18/2015 DTAP/TDAP/TD VACCINES (2 - Td or Tdap) 05/08/2016 Shingles Vaccine (Zoster) (1 of 2) 2020 COVID-19 VACCINE ( - season) 2023 Medicare IPPE (Welcome to Medicare) G0402 06/29/2024 Influenza Vaccine (#1) 2024 Pneumococcal 50+ years Completed 03/04/2024 Procedures Procedure Name Priority Date/Time Associated Diagnosis Comments CT ABDOMEN/PELVIS WITH IV CONTRAST STAT 08/01/2024 12:17 AM EDT PROTHROMBIN TIME/INR STAT 07/31/2024 11:26 PM EDT LIPASE STAT 07/31/2024 11:26 PM EDT COMPREHENSIVE METABOLIC PANEL STAT 07/31/2024 11:26 PM EDT CBC W/ AUTO DIFF STAT 07/31/2024 11:2 6 PM EDT URINALYSIS MICROSCOPIC STAT 11:22 PM EDT URINALYSIS, REFLEX MICROSCOPIC AND CULTURE IF INDICATED STAT 07/31/2024 11:22 PM EDT from Last 3 Months Results * CT ABDOMEN/PELVIS WITH IV CONTRAST (08/01/2024 12:17 AM EDT) Anatomical Region Laterality Modality Abdomen, Pelvis Computed Tomogra phy (CT) 08/01/2024 8:19 AM EDT Impressions 08/01/2024 10:03 AM EDT 1. No acute process within the abdomen or pelvis. 2. No biliary ductal dilation. 3. There is symmetrical function and excretion of the kidneys bilaterally without hydronephrosis. 4. The GI tract including the appendix is unremarkable. Images reviewed, interpreted, dictated and electronically signed by James Orozco MD Voice staff counselor technology (Poly Adaptive) is used for the dictation of this note and sound-alike words might be erroneously placed despite reviewing this note for accuracy. Errors in dictation may reflect use of voice recognition software and not all errors in staff counselor may have been detected prior to signing. Narrative 08/01/2024 10:[address] ABDOMEN AND PELVIS WITH IV CONTRAST HISTORY: Upper abdominal pain since May TECHNIQUE: Thin-section axial images from the lung bases through the symphysis pubis were performed with the administration of intravenous contrast. This study was performed with techniques to keep radiation doses as low as reasonably achievable, (ALARA). Individualized dose reduction techniques using automated exposure control or adjustment of mA and/or kV according to the patient size were employed. COMPARISON: None FINDINGS: There is bibasilar atelectasis. The gallbladder is surgically absent. There is no biliary ductal dilation. The liver, spleen, pancreas, and adrenal glands demonstrate normal enhancement. The organ contours are normal. There is no evidence of a mass. The kidneys demonstrate symmetrical enhancement and excretion. There are no renal stones or hydronephrosis. The renal contours are normal. The stomach is distended with debris most consistent with a recent meal. The aortic contour is normal. The urinary bladder is unremarkable. The uterus is surgically absent. The GI tract demonstrates no obstruction. The appendix is normal. There are degenerative changes of the thoracic and lumbar spine with scattered areas of disc space narrowing. Procedure Note James Orozco MD - 08/01/2024 CT ABDOMEN AND PELVIS WITH IV CONTRAST HISTORY: Upper abdominal pain since May TECHNIQUE: Thin-section axial images from the lung bases through the symphysis pubis were performed with the administration of intravenous contrast. This study was performed with techniques to keep radiation doses as low as reasonably achievable, (ALARA). Individualized dose reduction techniques using automated exposure control or adjustment of mA and/or kV according to the patient size were employed. COMPARISON: None FINDINGS: There is bibasilar atelectasis. The gallbladder is surgically absent. There is no biliary ductal dilation. The liver, spleen, pancreas, and adrenal glands demonstrate normal enhancement. The organ contours are normal. There is no evidence of a mass. The kidneys demonstrate symmetrical enhancement and excretion. There are no renal stones or hydronephrosis. The renal contours are normal. The stomach is distended with debris most consistent with a recent meal. The aortic contour is normal. The urinary bladder is unremarkable. The uterus is surgically absent. The GI tract demonstrates no obstruction. The appendix is normal. There are degenerative changes of the thoracic and lumbar spine with scattered areas of disc space narrowing. IMPRESSION: 1. No acute process within the abdomen or pelvis. 2. No biliary ductal dilation. 3. There is symmetrical function and excretion of the kidneys bilaterally without hydronephrosis. 4. The GI tract including the appendix is unremarkable. Images reviewed, interpreted, dictated and electronically signed by James Orozco MD Voice staff counselor technology (Power Scribe) is used for the dictation of this note and sound-alike words might be erroneously placed despite reviewing this note for accuracy. Errors in dictation may reflect use of voice recognition software and not all errors in staff counselor may have been detected prior to signing. us Carlos Casarez MD IMG CT ORDERABLES Final Result * (ABNORMAL) CBC with Auto Diff (07/31/2024 11:26 PM EDT) WBC 9.9 3.9 - 10.0 K/ L 07/31/2024 11:31 PM EDT [facility] RBC 4.22 3.93 - 6.08 M/ L 07/31/2024 11:31 PM EDT [facility] Hemoglobin 13.5 11.2 - 15.7 GM/DL 07/31/2024 11:31 PM EDT [facility] Hematocrit 40.4 34.1 - 44.9 % 07/31/2024 11:31 PM EDT [facility] MCV 96(H) 79 - 95 fL 07/31/2024 11:31 PM EDT [facility] MCH 32.0 25.6 - 32.2 pg 07/31/2024 11:31 PM EDT [facility] MCHC 33.4 32.2 - 36.5 GM/DL 07/31/2024 11:31 PM EDT [facility] RDW 12.7 11.6 - 14.4 % 07/31/2024 11:31 PM EDT [facility] Platelets 244 163 - 369 K/CU MM 07/31/2024 11:31 PM EDT [facility] MPV 10.7 9.4 - 12.4 fL 07/31/2024 11:31 PM EDT [facility] % Neutros 55 34 - 71 % 07/31/2024 11:31 PM EDT [facility] % Lymphs 34 19 - 53 % 07/31/2024 11:31 PM EDT [facility] % Monos 7 4 - 13 % 07/31/2024 11:31 PM EDT [facility] % Eos 3 1 - 7 % 07/31/2024 11:31 PM EDT [facility] % Baso 1 0 - 1 % 07/31/2024 11:31 PM EDT [facility] # Neutros 5.45 1.56 - 6.13 K/ L 07/31/2024 11:31 PM EDT [facility] # Lymphs 3.37 1.18 - 3.74 K/ L 07/31/2024 11:31 PM EDT [facility] # Monos 0.70 0.24 - 0.82 K/ L 07/31/2024 11:31 PM EDT [facility] # Eos 0.26 0.04 - 0.54 K/ L 07/31/2024 11:31 PM EDT [facility] # Baso 0.07 0.01 - 0.08 K/ L 07/31/2024 11:31 PM EDT [facility] Immature Granulocytes-Re lative 0.20 0.00 - 0.60 % 07/31/2024 11:31 PM EDT [facility] # IG 0.02 0.00 - 0.05 K/uL 07/31/2024 11:31 PM EDT [facility] Blood Venipuncture / Unknown 07/31/2024 11:26 PM EDT 07/31/2024 11:27 PM EDT Narrative [facility] - 07/31/2024 11:31 PM EDT When CBC w/ Auto Diff is ordered the lab will add a Manual Differential as a quality check at no additional charge if: Lymphocytes greater than seventy five percent with normal or increased WBC Monocytes greater than Fifteen percent Basophil greater than four percent Bands >10% or several immature myeloids are seen on scan Blast? Flag noted Atypical Lymph flag noted Carlos Casarez MD LAB BLOOD ORDERABLES Final Res ult Performing Organization Address [facility] Co de Phone Number [facility] [address] [employer] [address] [phone] * Prothrombin time/INR (07/31/2024 11:26 PM EDT) Protime 9.7 9.0 - 12.0 seconds 07/31/2024 11:49 PM EDT [facility] INR 0.88 0.80 - 1.10 07/31/2024 11:49 PM EDT [facility] Comment: Recommended therapeutic ranges using International Normalized Ratio (INR) are: INR RANGE 2.0 - 3.0 Routine oral anticoagulant therapy 2.5 - 3.5 Oral anticoagulant therapy for patients with thromboembolic events on standard doses of Coumadin and those with mechanical heart valves. Blood Venipuncture / Unknown 07/31/2024 11:26 PM EDT 07/31/2024 11:27 PM EDT Carlos Casarez MD LAB BLOOD ORDERABLES Final Res ult Performing Organization Address [facility] Co de Phone Number [facility] [address] [phone] * (ABNORMAL) Lipase (07/31/2024 11:26 PM EDT) Lipase 103(H) 13 - 75 U/L 07/31/2024 11:49 PM EDT [facility] Blood Venipuncture / Unknown 07/31/2024 11:26 PM EDT 07/31/2024 11:27 PM EDT us Carlos Casarez MD LAB BLOOD ORDERABLES Final Res ult [facility] [address] [phone] * (ABNORMAL) Comprehensive metabolic panel (07/31/2024 11:26 PM EDT) [facility] Sodium 138 136 - 146 meq/L 07/31/2024 11:49 PM EDT [facility] Potassium 4.0 3.5 - 5.1 meq/L 07/31/2024 11:49 PM EDT [facility] Chloride 108 102 - 112 meq/L 07/31/2024 11:49 PM EDT [facility] CO2 25 21 - 32 meq/L 07/31/2024 11:49 PM EDT [facility] Calcium 9.2 8.5 - 10.1 mg/dL 07/31/2024 11:49 PM EDT [facility] Glucose 156(H) 74 - 106 mg/dL 07/31/2024 11:49 PM EDT [facility] BUN 20 7 - 22 mg/dL 07/31/2024 11:49 PM EDT [facility] Creatinine 1.13(H) 0.55 - 1.02 mg/dL 07/31/2024 11:49 PM EDT [facility] BUN/Creatinine 18 8 - 20 07/31/2024 11:49 PM EDT [facility] Albumin 3.2(L) 3.4 - 5.0 g/dL 07/31/2024 11:49 PM EDT [facility] Alkaline Phosphatase 69 27 - 136 U/L 07/31/2024 11:49 PM EDT [facility] ALT 23 12 - 78 U/L 07/31/2024 11:49 PM EDT [facility] AST 17 5 - 37 U/L 07/31/2024 11:49 PM EDT [facility] Total Bilirubin 0.2 0.2 - 1.3 mg/dL 07/31/2024 11:49 PM EDT [facility] Protein, Total 7.1 6.4 - 8.2 gm/dL 07/31/2024 11:49 PM EDT [facility] Anion Gap 9 9 - 20 07/31/2024 11:49 PM EDT [facility] A/G Ratio 0.8(L) 1.1 - 2.5 07/31/2024 11:49 PM EDT [facility] Globulin 3.9 1.5 - 4.5 g/dL 07/31/2024 11:49 PM EDT [facility] Osmolality Calc 281.5 mOsm/kg 11:49 PM T [facility] eGFR (mL/min/1.73m2) 58(L) >=60 mL/min/1.7 3m2 07/31/2024 11:49 PM EDT [facility] Comment:ESTIMATED GFR IS NOT ACCURATE CREATININE CLEARANCE IN PREDICTING GLOMERULAR FILTRATION RATE. ESTIMATED GFR IS NOT APPLICABLE FOR DIALYSIS PATIENTS. Blood Venipuncture / Unknown 07/31/2024 11:26 PM EDT 07/31/2024 11:27 PM EDT us Carlos Casarez MD LAB BLOOD ORDERABLES Final Res ult [facility] [address] [place] [address], [facility] [phone] * (ABNORMAL) Urinalysis, Reflex Microscopic and Culture If Indicated (07/31/2024 11:22 PM EDT) Color, UA Light Yellow 07/31/2024 11:31 PM EDT [facility] Clarity, UA Turbid(A) Clear 07/31/2024 11:31 PM EDT [facility] Specific [place], UA 1.013 1.005 - 1.030 07/31/2024 11:31 PM EDT [facility] pH, UA 5.5(L) 6.0 - 8.0 07/31/2024 11:31 PM EDT [facility] Leukocytes, UA Negative Negative 07/31/2024 11:31 PM EDT [facility] Nitrite, UA Negative Negative 07/31/2024 11:31 PM EDT [facility] Protein, UA Negative Negative 07/31/2024 11:31 PM EDT [facility] Glucose, UA Normal Normal 07/31/2024 11:31 PM EDT [facility] Ketones, UA Negative Negative 07/31/2024 11:31 PM EDT [facility] Bilirubin, UA Negative Negative 07/31/2024 11:31 PM EDT [facility] Blood, UA Negative Negative 07/31/2024 11:31 PM EDT [facility] Urobilinogen, UA Normal Normal 07/31/2024 11:31 PM EDT [facility] Specimen Source Urine, Clean Catch 07/31/2024 11:31 PM EDT [facility] Urine URINE SPECIMEN COLLECTION, CLEAN CATCH / Unknown 07/31/2024 11:22 PM EDT 07/31/2024 11:22 PM EDT Carlos Casarez MD URINE ORDERABLES Final Result [facility] [address] [place] [address] * (ABNORMAL) Urinalysis Microscopic Only (07/31/2024 11:22 PM EDT) WBC, UA 0-2(A) None Seen /HPF 07/31/2024 11:31 PM EDT [facility] RBC, UA 0-2(A) None Seen /HPF 07/31/2024 11:31 PM EDT [facility] Bacteria, UA 3+(A) Trace, None Seen 07/31/2024 11:31 PM EDT [facility] SQUAMOUS EPITHELIAL 0-2(A) None Seen /HPF 07/31/2024 11:31 PM EDT [facility] Urine URINE SPECIMEN COLLECTION, CLEAN CATCH / Unknown 07/31/2024 11:22 PM EDT 07/31/2024 11:22 PM EDT us Carlos Casarez MD URINE ORDERABLES Final Result [facility] [address] [place] [address], [facility] [phone] from Last 3 Months Insurance [facility] MEDICARE HMO Care Teams Carburetor Expert Relationship Specialty Start Date End Date Manuel Bingham MD [address] [place] [address] PCP - General Family Medicine 07/31/24
--- OUTSIDE RECORDS SUMMARY | 2024-10-25 12:50 | XMS_ITS | Encounter Summary ---
Author Organization [employer] ([place], [place], [place], [place]) Address [address] [place] [address] Care Team Providers Care Host Hostess Name Role Phone Manuel Bingham MD Primary Care Provider + Encounter Details Date Type Department Care Team (Late st Contact Info) Description 02/24/2020 Transcribed Document [facility] Family Medicine [address] [place] [address] ProviderJohn MD [address] [place] [address] Social History Tobacco Use Types Packs/Day Years Used Date Smoking Tobacco: Never Assessed Comments Unknown Sex and Gender Information Value Date Recorded Sex Assigned at Not on file Legal Sex Female 4:40 PM CDT Gender Identity Not on file Sexual Orientation Not on file documented as of this encounter Miscellaneous Notes * Cerner Conversion Note - Historical ProviderMD - 02/24/2020 2:34 PM CHIEF DEPUTY ED Assessment Entered On: 02/24/2020 16:24 EST Performed On: 02/24/2020 16:23 EST by LIS VASQUEZ RN ED Quick Look Assessment Level of Consciousness : Alert, Awake Affect/Behavior : Appropriate, Calm, Cooperative Orientation : Oriented x 4 Skin Temperature : Warm Skin Description : Dry LIS VASQUEZ RN - 02/24/2020 16:23 EST ED General-Functional Assess Information Obtained From : Patient Preferred Communication Mode : Verbal Communication Barrier : None Primary Language : Welsh Any Spiritual/Cultural Needs or Requests : No Currently in Unsafe Situation : No LIS VASQUEZ RN - 02/24/2020 16:23 EST Social Habits Smoking Status : Never (less than 100 in lifetime; none in last 30 days) Smokeless Tobacco Status : Never Desires Tobacco Cessation Calc : 0 LIS VASQUEZ RN - 02/24/2020 16:23 EST Social History (As Of: 02/24/2020 16:24:39 EST) Tobacco: Smoking Status Never smoker. (Last Updated: 12/22/2015 07:02:38 EDT by Pearl Espino, RN) Alcohol: Alcohol Use History No. (Last Updated: 12/22/2015 07:02:42 EDT by Pearl Espino, RN) Substance Abuse: Drug Use Hx: No. (Last Updated: 12/22/2015 07:02:46 EDT by Pearl Espino, RN) Respiratory Cough : Occasional LIS VASQUEZ RN - 02/24/2020 16:23 EST Breath Sounds Assessment Grid All Lobes Breath Sounds : Clear LIS VASQUEZ RN - 02/24/2020 16:23 EST Integumentary Assessment Integumentary Assessment Comment : pt c/o fever and cough, resp even & unlabored, skin pwd. LIS VASQUEZ RN - 02/24/2020 16:23 EST documented in this encounter Plan of Treatment Not on file documented as of this encounter Visit Diagnoses Not on filedocumented in this encounter Care Teams Host Hostess Relationship Specialty Start Date End Date Manuel Bingham MD [address] [place] [id number] PCP - General Family Medicine 07/31/24 documented as of this encounter
--- OUTSIDE RECORDS SUMMARY | 2024-10-25 12:50 | XMS_ITS | Referral Summary ---
Author Organization [employer] ([place], [place], [place], [place]) Address [address] [place] [address] Care Team Providers Care Tavern Keeper Name Role Phone Manuel Bingham MD Primary Care Provider [phone] Encounters Date Type Department Care Team Description 07/31/2024 9:59 PM EDT - 08/01/2024 1:23 AM EDT Emergency [facility] [address] [place] [address] Carlos Casarez MD Generalized abdominal pain (Primary Dx) Discharge Disposition: Home or Self Care 07/31/2024 Travel from Last 3 Months Allergies No known active allergies Medications bisoprolol (ZEBETA) 5 MG tablet Take 1 tablet (5 mg total) by mouth daily. Active atorvastatin (LIPITOR) 10 MG tablet Take 1 tablet (10 mg total) by mouth nightly. 07/13/2024 Active busPIRone (BUSPAR) 10 MG tablet Take 2 tablets (20 mg total) by mouth 2 (two) times daily. 05/20/2024 Active Social History Tobacco Use Types Packs/Day Years [...] Mass Index - - Plan of Treatment Not on file Procedures Procedure Name Priority Date/Time Associated Diagnosis [...] electronically signed by James Orozco MD Voice clinical implementation specialist technology (Power Fourandhalfibe) is used for the dictation of this note and sound-alike words might be erroneously placed despite reviewing this note for accuracy. Errors in dictation may reflect use of voice recognition software and not all errors in clinical implementation specialist may have been detected prior to signing. [...] electronically signed by James Orozco MD Voice clinical implementation specialist technology (AXADOe) is used for the dictation of this note and sound-alike words might be erroneously placed despite reviewing this note for accuracy. Errors in dictation may reflect use of voice recognition software and not all errors in clinical implementation specialist may have been detected prior to signing. us Carlos Casarez MD IMG CT ORDERABLES Final Result * (ABNORMAL) CBC with Auto Diff (07/31/2024 11:26 PM EDT) WBC 9.9 3.9 - 10.0 K/ L 07/31/2024 11:31 PM EDT [facility] RBC 4.22 3.93 - 6.08 M/ L 07/31/2024 11:31 PM EDT [facility] Hemoglobin 13.5 11.2 - 15.7 GM/DL 07/31/2024 11:31 PM EDT [facility] Hematocrit 40.4 34.1 - 44.9 % 07/31/2024 11:31 PM EDT [facility] MCV 96(H) 79 - 95 fL 07/31/2024 11:31 PM EDT [facility] MCH 32.0 25.6 - 32.2 pg 07/31/2024 11:31 PM EDT [facility] MCHC 33.4 32.2 - 36.5 GM/DL 07/31/2024 11:31 PM EDT [facility] RDW 12.7 11.6 - 14.4 % 07/31/2024 11:31 PM EDT [facility] Platelets 244 163 - 369 K/CU MM 07/31/2024 11:31 PM EDT [facility] MPV 10.7 9.4 - 12.4 fL 07/31/2024 11:31 PM EDT [facility] % Neutros 55 34 - 71 % 07/31/2024 11:31 PM EDT [facility] % Lymphs 34 19 - 53 % 07/31/2024 11:31 PM EDT [facility] % Monos 7 4 - 13 % 07/31/2024 11:31 PM EDT [facility] % Eos 3 1 - 7 % 07/31/2024 11:31 PM EDT [facility] % Baso 1 0 - 1 % 07/31/2024 11:31 PM EDT [facility] # Neutros 5.45 1.56 - 6.13 K/ L 07/31/2024 11:31 PM EDT [facility] # Lymphs 3.37 1.18 - 3.74 K/ L 07/31/2024 11:31 PM EDT [facility] # Monos 0.70 0.24 - 0.82 K/ L 07/31/2024 11:31 PM EDT [facility] # Eos 0.26 0.04 - 0.54 K/ L 07/31/2024 11:31 PM EDT [facility] # Baso 0.07 0.01 - 0.08 K/ L 07/31/2024 11:31 PM EDT [facility] Immature Granulocytes-Re lative 0.20 0.00 - 0.60 % 07/31/2024 11:31 PM EDT [facility] # IG 0.02 0.00 - 0.05 K/uL 07/31/2024 11:31 PM EDT [facility] Blood Venipuncture / Unknown 07/31/2024 11:26 PM EDT 07/31/2024 11:27 PM EDT Narrative [facility] - 07/31/2024 11:31 PM EDT [...] Blast? Flag noted Atypical Lymph flag noted us Carlos Casarez MD LAB BLOOD ORDERABLES Final Res ult Performing Organization Address City/[facility]/ZIP Co de Phone Number [facility] [address] [phone] * Prothrombin time/INR (07/31/2024 11:26 PM EDT) [facility] Protime 9.7 9.0 - 12.0 seconds 07/31/2024 11:49 PM EDT [facility] INR 0.88 0.80 - 1.10 07/31/2024 11:49 PM EDT [facility] Comment: Recommended therapeutic ranges using [...] ORDERABLES Final Res ult Performing Organization Address [facility] Co de Phone Number [facility] [address] [phone] * (ABNORMAL) Lipase (07/31/2024 11:26 PM EDT) [facility] Lipase 103(H) 13 - 75 U/L 07/31/2024 11:49 PM EDT [facility] Blood Venipuncture / Unknown 07/31/2024 11:26 PM EDT 07/31/2024 11:27 PM EDT Carlos Casarez MD LAB BLOOD ORDERABLES Final Res ult Performing Organization Address City/[facility]/ZIP Co de Phone Number [facility] [address] [phone] * (ABNORMAL) Comprehensive metabolic panel (07/31/2024 11:26 PM EDT) [facility] Sodium 138 136 - 146 meq/L 07/31/2024 11:49 PM [facility] Potassium 4.0 3.5 - 5.1 meq/L 07/31/2024 11:49 PM [facility] Chloride 108 102 - 112 meq/L 07/31/2024 11:49 PM [facility] CO2 25 21 - 32 meq/L 07/31/2024 11:49 PM [facility] Calcium 9.2 8.5 - 10.1 mg/dL 07/31/2024 11:49 PM [facility] Glucose 156(H) 74 - 106 mg/dL 07/31/2024 11:49 PM [facility] BUN 20 7 - 22 mg/dL 07/31/2024 11:49 PM [facility] Creatinine 1.13(H) 0.55 - 1.02 mg/dL 07/31/2024 11:49 PM [facility] BUN/Creatinine 18 8 - 20 07/31/2024 11:49 PM [facility] Albumin 3.2(L) 3.4 - 5.0 g/dL 07/31/2024 11:49 PM [facility] Alkaline Phosphatase 69 27 - 136 U/L 07/31/2024 11:49 PM [facility] ALT 23 12 - 78 U/L 07/31/2024 11:49 PM [facility] AST 17 5 - 37 U/L 07/31/2024 11:49 PM [facility] Total Bilirubin 0.2 0.2 - 1.3 mg/dL 07/31/2024 11:49 PM [facility] Protein, Total 7.1 6.4 - 8.2 gm/dL 07/31/2024 11:49 PM [facility] Anion Gap 9 9 - 20 07/31/2024 11:49 PM [facility] A/G Ratio 0.8(L) 1.1 - 2.5 07/31/2024 11:49 PM [facility] Globulin 3.9 1.5 - 4.5 g/dL 07/31/2024 11:49 PM EDT [facility] Osmolality Calc 281.5 mOsm/kg 11:49 PM EDT [facility] eGFR (mL/min/1.73m2) 58(L) >=60 mL/min/1.7 3m2 07/31/2024 11:49 PM EDT [facility] Comment:ESTIMATED GFR IS NOT ACCURATE CREATININE CLEARANCE IN PREDICTING GLOMERULAR FILTRATION RATE. ESTIMATED GFR IS NOT APPLICABLE FOR DIALYSIS PATIENTS. Blood Venipuncture / Unknown 07/31/2024 11:26 PM EDT 07/31/2024 11:27 PM EDT us Carlos Casarez MD LAB BLOOD ORDERABLES Final Res ult [facility] [address] [place] [address], [facility] [phone] * (ABNORMAL) Urinalysis, Reflex Microscopic and Culture If Indicated (07/31/2024 11:22 PM EDT) Color, UA Light Yellow 07/31/2024 11:31 PM EDT [facility] Clarity, UA Turbid(A) Clear 07/31/2024 11:31 PM EDT [facility] Specific Felt, UA 1.013 1.005 - 1.030 07/31/2024 11:31 PM EDT [facility] pH, UA 5.5(L) 6.0 - 8.0 07/31/2024 11:31 PM EDT [facility] Leukocytes, UA Negative Negative 07/31/2024 11:31 PM EDT [facility] Nitrite, UA Negative Negative 07/31/2024 11:31 PM EDT [facility] Protein, UA Negative Negative 07/31/2024 11:31 PM EDT [facility] Glucose, UA Normal Normal 07/31/2024 11:31 PM EDT [facility] Ketones, UA Negative Negative 07/31/2024 11:31 PM EDT [facility] Bilirubin, UA Negative Negative 07/31/2024 11:31 PM EDT [facility] Blood, UA Negative Negative 07/31/2024 11:31 PM EDT [facility] Urobilinogen, UA Normal Normal 07/31/2024 11:31 PM EDT [facility] Specimen Source Urine, Clean Catch 07/31/2024 11:31 PM EDT [facility] Urine URINE SPECIMEN COLLECTION, CLEAN CATCH / Unknown 07/31/2024 11:22 PM EDT 07/31/2024 11:22 PM EDT us Carlos Casarez MD URINE ORDERABLES Final Result [facility] [address] [place] [address], [facility] [phone] * (ABNORMAL) Urinalysis Microscopic Only (07/31/2024 11:22 PM EDT) WBC, UA 0-2(A) None Seen /HPF 07/31/2024 11:31 PM EDT [facility] RBC, UA 0-2(A) None Seen /HPF 07/31/2024 11:31 PM EDT [facility] Bacteria, UA 3+(A) Trace, None Seen 07/31/2024 11:31 PM EDT [facility] SQUAMOUS EPITHELIAL 0-2(A) None Seen /HPF 07/31/2024 11:31 PM EDT [facility] Urine URINE SPECIMEN COLLECTION, CLEAN CATCH / Unknown 07/31/2024 11:22 PM EDT 07/31/2024 11:22 PM EDT us Carlos Casarez MD URINE ORDERABLES Final Result [facility] [address] [place] [address], [facility] [phone] from Last 3 Months Insurance [employer] MEDIC[employer] HMO Care Teams Tavern Keeper Relationship Specialty Start Date End Date Manuel Bingham MD [address] [place] [address] PCP - General Family Medicine 07/31/24
--- OUTSIDE RECORDS SUMMARY | 2024-10-25 12:50 | XMS_ITS | Encounter Summary ---
Author Organization [employer] ([place], [place], [place], [place]) Address [address] [place] [address] Care Team Providers Care Safety Clothing And Equipment Developer Name Role Phone Manuel Bingham MD Primary Care Provider + Encounter Details Date Type Department Care Team (Late st Contact Info) Description 11/29/2019 Transcribed Document [facility] [address] ProviderJohn MD [address] [place] [address] Social History Tobacco Use Types Packs/Day Years [...] ProviderMD - 11/29/2019 11:44 PM CDT ED Triage Entered On: 11/30/2019 0:41 EDT Performed On: 11/30/2019 0:39 EDT by FRANKIE CRESPO, OUT OF TOWN COLLECTION CLERK Triage Across the Room Chief Complaint : Pt co Increased SOA with mid chest pain that began this AM. pt is calm alert skinpwd. Triage Date/Time : 11/30/2019 0:39 EDT FRANKIE CRESPO RN - 11/30/2019 0:39 EDT DCP GENERIC CODE Tracking Acuity : 2 - Emergent Tracking Group : [facility] FRANKIE CRESPO RN - 11/30/2019 0:39 EDT Mode of Arrival : Ambulatory Transported to ED by : Private vehicle To Room Via : Ambulate Accompanied By : Unaccompanied ED Vital Signs : Document Height & Weight : Document ED Allergies : Document ED Reason for Visit : Document Status : Patient denies Tetanus Immunization : Less than 5 years FRANKIE CRESPO RN - 11/30/2019 0:39 EDT Infectious Disease History Has the patient ever been tested for COVID-19? : Yes, Patient stated results Negative Date of COVID-19 test known? : No Does patient have symptoms of COVID-19? : Yes COVID19 Screening : No Experiencing Infectious Disease Symptoms : Difficulty breathing Physical contact outside [place] in the last 30 days : No Infectious Disease History : None Tuberculosis Symptoms : None FRANKIE CRESPO RN - 11/30/2019 0:39 EDT Vital Signs ED Temperature Source : Tympanic Temperature Mode : Fahrenheit Temperature, Fahrenheit : 98.3 Deg F ED Pain : Yes Clinical Temperature, C : 36.8 Deg C Oxygen Therapy Mode : Room air Peripheral Pulse Rate : 72 bpm Respiratory Rate : 18 Breaths/Min Systolic Blood Pressure : 130 mmHg Diastolic Blood Pressure : 81 mmHg Oxygen Saturation : 95 % FRANKIE CRESPO RN - 11/30/2019 0:39 EDT Allergy (As Of: 11/30/2019 00:41:48 EDT) Allergies (Active) No Known Medication Allergies Estimated Onset Date: Unspecified ; Created By: FRANKIE CRESPO RN; Reaction Status: Active ; Category: Drug ; Substance: No Known Medication Allergies ; Type: Allergy ; Updated By: FRANKIE CRESPO RN; Reviewed Date: 05/27/2019 20:16 EST Diagnosis Control ED (As Of: 11/30/2019 00:41:48 EDT) Problems(Active) Anxiety (SNOMED CT :31453855 ) Name of Problem: Anxiety ; Recorder: Pearl Espino RN; Confirmation: Confirmed ; Classification: Medical ; Code: [id number] ; Contributor System: [email or web address] ; Last Updated: 12/19/2016 10:22 EDT ; Life Cycle Date: 12/22/2015 ; Life Cycle Status: Active ; Vocabulary: SNOMED CT Endometriosis (SNOMED CT :7426208643 ) Name of Problem: Endometriosis ; Recorder: Pearl Espino RN; Confirmation: Confirmed ; Classification: Medical ; Code: [id number] ; Contributor System: i-[email or web address] ; Last Updated: 12/22/2015 6:56 EDT ; Life Cycle Date: 12/22/2015 ; Life Cycle Status: Active ; Vocabulary: SNOMED CT HTN (SNOMED CT :7441716652 ) Name of Problem: HTN ; Recorder: Pearl Espino RN; Confirmation: Confirmed ; Classification: Medical ; Code: [id number] ; Contributor System: [email or web address] ; Last Updated: 09/30/2016 16:39 EDT ; Life Cycle Date: 12/22/2015 ; Life Cycle Status: Active ; Vocabulary: SNOMED CT S/P hysterectomy (SNOMED CT :949123276 ) Name of Problem: S/P hysterectomy ; Recorder: BELIA VELÁZQUEZ RN; Confirmation: Confirmed ; Classification: Medical ; Code: [id number] ; Contributor System: [email or web address] ; Last Updated: 07/19/2018 19:29 EDT ; Life Cycle Date: 07/19/2018 ; Life Cycle Status: Active ; Vocabulary: SNOMED CT Diagnoses(Active) Chest pain Date: 11/30/2019 ; Diagnosis Type: Reason For Visit ; Confirmation: Complaint of ; Clinical Dx: Chest pain ; Classification: Medical ; Clinical Service: Emergency medicine ; Code: PNED ; Probability: 0 ; Diagnosis Code: [id number] ED Height and Weight Height Source : Measured Height Entry Format : [place] Height, Feet : 5 ft(Converted to: 152 cm, 60 Inch) Height, Inches : 0 Inch(Converted to: 0 ft 0 Inch, 0.00 cm) Clinical Height : 152.4 cm Weight Source, ED : Standing scale Weight Entry Format : [place] Weight, Pounds : 217 lb Clinical Dosing Weight : 98.64 kg Body Surface Area (BSA) : 1.93 m2 Body Mass Index : 42.5 kg/m2 (>HHI) [place] Body Weight (IBW) : 45.16 kg FRANKIE CRESPO RN - 11/30/2019 0:39 EDT Pain Assessment Pain Assessment : Initial assessment Pain Scale Used : 0-10 Scale FRANKIE CRESPO RN - 11/30/2019 0:39 EDT Pain Scale Intensity : 5 FRANKIE CRESPO RN - 11/30/2019 0:39 EDT Image 4 - Images currently included in the form version of this document have not been included in the text rendition version of the form. documented in this encounter Plan of Treatment Not on file documented as of this encounter Visit Diagnoses Not on filedocumented in this encounter Care Teams Safety Clothing And Equipment Developer Relationship Specialty Start Date End Date Manuel Bingham MD [address] [place] [id number] PCP - General Family Medicine 07/31/24 documented as of this encounter
--- OUTSIDE RECORDS SUMMARY | 2024-10-25 12:50 | XMS_ITS | Encounter Summary ---
Author Organization [employer] ([place], [place], [place], [place]) Address [address] [place] [address] Care Team Providers Care Shank Scourer Name Role Phone Manuel Bingham MD Primary Care Provider + Encounter Details Date Type Department Care Team (Late st Contact Info) Description 11/30/2019 Transcribed Document [facility] Radiology [address] [place] [address] Devyn Roman MD [address] [place] [address] Dept. of Emergency Medicine [place] [id number] Social History Tobacco Use Types Packs/Day Years Used Date Smoking Tobacco: Never Assessed Comments Unknown Sex and Gender Information Value Date Recorded Sex Assigned at Not on file Legal Sex Female 4:40 PM CDT Gender Identity Not on file Sexual Orientation Not on file documented as of this encounter Miscellaneous Notes * Cerner Conversion Note - Devyn Roman MD - 11/30/2019 2:08 AM EDT Patient: JESSICA SAWYER Age: 49 years Sex: Female : 1970 Associated Diagnoses: Dyspnea Author: DEVYN ROMAN MD-EMR Basic Information Additional information: Chief Complaint from Nursing Triage Note : Chief Complaint 11/30/2019 0:39 EDT Chief Complaint Pt co Increased SOA with mid chest pain that began this AM. pt is calm alert skinpwd. . History of Present Illness The patient presents with Soa 2 days, h/o fluid retention of chf, no cp, no fever.. Review of Systems Constitutional symptoms: Negative except as documented in HPI. Additional review of systems information: All other [...] 0 Refill(s). Past Medical/ Family/ Social History Medical history Reviewed as documented in chart. Surgical history: heart cath. Endometrial Ablation. Cholecystectomy; (70988). colonoscopy. d&c. right carpal tunnel and right [...] Physical Examination Vital Signs Vital Signs/Vital Measures 11/30/2019 0:39 EDT Systolic Blood Pressure 130 mmHg Diastolic Blood Pressure 81 mmHg Temperature Source Tympanic Temperature Mode Fahrenheit Temperature, Fahrenheit 98.3 Deg F Clinical Temperature, C 36.8 Deg C Peripheral Pulse Rate 72 bpm Respiratory Rate 18 Breaths/Min Oxygen Saturation 95 % Oxygen Therapy Mode Room air . Oxygen Saturation 11/30/2019 0:39 EDT Oxygen Saturation 95 % . General: Alert, no acute distress. Skin: Dry. Head: Atraumatic. Neck: Trachea midline, no JVD. Eye: Pupils are equal, round and reactive to light, normal conjunctiva. Ears, nose, mouth and throat: Oral mucosa moist. Cardiovascular: Normal peripheral perfusion. Respiratory: Respirations are non-labored. Chest wall: No deformity. Back: Normal alignment. Musculoskeletal: No deformity. Genitourinary: Exam deferred. Neurological: Alert and oriented to person, place, time, and situation. Psychiatric: Cooperative. Medical Decision Making Differential Diagnosis: Non-ST elevation myocardial infarction Keon is in no distress here, she does not have any wheezing on exam, although the description of her symptoms seems to fit bronchospasm, d-dimer is negative, no leg edema, or swelling noted. Low risk for DVT PE.. Documents reviewed: Emergency department nurses' notes, emergency department records. Radiology results: Your x-ray reports, reviewed, CT scan ordered and evaluated, within normal limits, . Impression and Plan Diagnosis Dyspnea - Discharge, Emergency medicine, Medical Plan Condition: Stable. Prescriptions: Prescription [facility]: albuterol [facility] free 90 mcg/inh inhalation aerosol with adapter (Prescribe): 2 Puff, Inhalation, QID, 1 Each, 0 Refill(s). Patient was given the following educational materials: Bronchospasm, Adult. Follow up with: TAUKARRIEK ROBBIN Within 2 to 3 days; Follow up with primary care provider Within 2 to 3 days. documented in this encounter Plan of Treatment Not on file documented as of this encounter Visit Diagnoses Not on filedocumented in this encounter Care Teams Shank Scourer Relationship Specialty Start Date End Date Manuel Bingham MD [address] [place] [id number] PCP - General Family Medicine 07/31/24 documented as of this encounter
--- OUTSIDE RECORDS SUMMARY | 2024-10-25 12:50 | XMS_ITS | Encounter Summary ---
Author Organization [employer] ([place], [place], [place], [place]) Address [address] [place] [address] Care Team Providers Care Medical Unit Secretary Name Role Phone Manuel Bingham MD Primary Care Provider + Encounter Details Date Type Department Care Team (Late st Contact Info) Description 11/30/2019 Transcribed Document [facility] [place] Family Medicine [facility] [place] [address] ProviderJohn MD [address] [place] [address] Social History Tobacco Use Types Packs/Day Years Used Date Smoking Tobacco: Never Assessed Comments Unknown Sex and Gender Information Value Date Recorded Sex Assigned at Not on file Legal Sex Female 4:40 PM CDT Gender Identity Not on file Sexual Orientation Not on file documented as of this encounter Miscellaneous Notes * Cerner Conversion Note - John Frank MD - 11/30/2019 4:00 [place] [address] JESSICA SAWYER :1970 Visit Time:11/29/2019 Your Visit Summary Your Care Team Primary Provider: ALFRED ROMAN Secondary Provider: Your Diagnosis Chest pain Dyspnea Medical Information You may obtain a copy [...] provider When Within 2 to 3 days Follow Up with JOVAN SIEGEL When Within 2 to 3 days Allergies No Known Medication Allergies Immunizations This Visit No Immunizations Found Medications What How Much When Instructions Next Dose albuterol (albuterol CFC free 90 mcg/ inh inhalation aerosol with adapter) 2 Puff(s) Inhalation Four Times A Day Pickup at [facility]/pharmacy #[id number] aspirin (aspirin 81 mg oral tablet) 1 [...] 1 Tablet(s) Oral Every Day Pharmacy Information [facility]/pharmacy #[id number]: [address] [place] [id number] [phone] The home medications listed are only as [...] This Visit (last charted value for your 11/29/2019 visit) Hematology 11/30/2019 1:35 AM WBC: 8.5 K/uL -- Normal range between ( 3.9 and 10.0 ) RBC: 4.22 Million/uL -- Normal range between ( 3.93 and 5.22 ) Hct: 40.2 % -- Normal range between ( 34.1 and 44.9 ) Hgb: 13.6 Gram/dL -- Normal range between ( 11.2 and 15.7 ) Platelet Count: 241 K/uL -- Normal range between ( 163 and 369 ) MCH: 32.2 pg -- Normal range between ( 25.6 and 32.2 ) MCHC: 33.8 Gram/dL -- Normal range between ( 32.3 and 36.5 ) MCV: 95.3 fL -- Normal range between ( 79.0 and 94.8 ) Slide Review: No Eos %: 2.1 % -- Normal range between ( 1.0 and 7.0 ) Saline #: 0.56 K/uL -- Normal range between ( 0.24 and 0.82 ) Eos #: 0.18 K/uL -- Normal range between ( 0.04 and 0.54 ) Saline %: 6.6 % -- Normal range between ( 4.7 and 12.5 ) Baso %: 0.8 % -- Normal range between ( 0.0 and 1.0 ) Baso #: 0.07 K/uL -- Normal range between ( 0.01 and 0.08 ) RDW: 12.6 % -- Normal range between ( 11.6 and 14.4 ) Neut %: 51.8 % -- Normal range between ( 34.0 and 71.0 ) Neut #: 4.39 K/uL -- Normal range between ( 1.56 and 6.13 ) Lymph %: 38.6 % -- Normal range between ( 19.3 and 53.0 ) Lymph #: 3.28 K/uL -- Normal range between ( 1.18 and 3.74 ) MPV: 11.2 fL -- Normal range between ( 9.4 and 12.4 ) IG#: 0 x10(3)/uL IG%: 0 % -- Normal range between ( 0 and 1 ) General Chemistry 11/30/2019 1:35 AM Creatinine Level: 0.99 mg/dL -- Normal range between ( 0.55 and 1.02 ) Sodium Level: 143 mmol/L -- Normal range between ( 136 and 146 ) Potassium Level: 4.1 mmol/L -- Normal range between ( 3.5 and 5.1 ) Chloride Level: 108 mmol/L -- Normal range between ( 102 and 112 ) Carbon Dioxide Level: 29 mmol/L -- Normal range between ( 21 and 32 ) Anion Gap: 10 -- Normal range between ( 9 and 20 ) Bilirubin Total: 0.2 mg/dL -- Normal range between ( 0.2 and 1.3 ) A/G Ratio: 1.1 -- Normal range between ( 1.1 and 2.5 ) ALT: 30 Units/Liter -- Normal range between ( 12 and 78 ) AST: 18 Units/Liter -- Normal range between ( 5 and 37 ) Globulin: 3.2 Gram/dL -- Normal range between ( 1.5 and 4.5 ) Alk Phos: 76 Units/Liter -- Normal range between ( 27 and 136 ) Bun/Creatinine: 25.3 -- Normal range between ( 8.0 and 20.0 ) Calcium Level: 8.8 mg/dL -- Normal range between ( 8.5 and 10.1 ) eGFR : >60 mL/min/1.73m2 eGFR NonAfrican: 60 mL/min/1.73m2 Glucose Level: 96 mg/dL -- Normal range between ( 74 and 106 ) Blood Urea Nitrogen: 25 mg/dL -- Normal range between ( 7 and 22 ) Protein Total: 6.8 Gram/dL -- Normal range between ( 6.4 and 8.2 ) Albumin Level: 3.6 Gram/dL -- Normal range between ( 3.4 and 5.0 ) Cardiac Specific Markers 11/30/2019 1:35 AM Troponin I Ultra: <0.015 ng/mL -- Normal range between ( 0.015 and 0.045 ) ProBNP: 130 pg/mL -- Normal range between ( 0 and 125 ) Coagulation 11/30/2019 1:35 AM D Dimer Quant: 275 ng/mL INR: 0.9 -- Normal range between ( 0.9 and 1.1 ) PTT: 27.1 Second(s) -- Normal range between ( 24.2 and 31.8 ) PT: 9.8 Second(s) -- Normal range between ( 9.6 and 11.5 ) Education Materials Bronchospasm, Adult Bronchospasm is a tightening of the airways going into the lungs. During an episode, it may be harder to breathe. You may cough, and you may make a whistling sound when you breathe (wheeze). This condition often affects people with asthma. What are the causes? This condition is caused by swelling and irritation in the airways. It can be triggered by: ??? An infection (common). ??? Seasonal allergies. ??? An allergic reaction. ??? Exercise. ??? Irritants. These include pollution, cigarette smoke, strong odors, aerosol sprays, and paint fumes. ??? Weather changes. Winds increase molds and pollens in the air. Cold air may cause swelling. ??? Stress and emotional upset. What are the signs or symptoms? Symptoms of this condition include: ??? Wheezing. If the episode was triggered by an allergy, wheezing may start right away or hours later. ??? Nighttime coughing. ??? Frequent or severe coughing with a simple cold. ??? Chest tightness. ??? Shortness of breath. ??? Decreased ability to exercise. How is this diagnosed? This condition is usually diagnosed with a review of your medical history and a physical exam. Tests, such as lung function tests, are sometimes done to look for other conditions. The need for a chest X-ray depends on where the wheezing occurs and whether it is the first time you have wheezed. How is this treated? This condition may be treated with: ??? Inhaled medicines. These open up the airways and help you breathe. They can be taken with an inhaler or a nebulizer device. ??? Corticosteroid medicines. These may be given for severe bronchospasm, usually when it is associated with asthma. ??? Avoiding triggers, such as irritants, infection, or allergies. Follow these instructions at home: Medicines ??? Take [id number] and prescription medicines only as told by your health care provider. ??? If you need to use an inhaler or nebulizer to take your medicine, ask your health care provider to explain how to use it correctly. If you were given a spacer, always use it with your inhaler. Lifestyle ??? Reduce the number of triggers in your home. To do this: ? Change your heating and air conditioning filter at least once a month. ? Limit your use of fireplaces and wood stoves. ? Do not smoke. Do not allow smoking in your home. ? Avoid using perfumes and fragrances. ? Get rid of pests, such as roaches and mice, and their droppings. ? Remove any mold from your home. ? Keep your house clean and dust free. Use unscented cleaning products. ? Replace carpet with wood, tile, or vinyl alfonso. Carpet can trap dander and dust. ? Use allergy-proof pillows, mattress covers, and box spring covers. ? Wash bed sheets and blankets every week in hot water. Dry them in a dryer. ? Use blankets that are made of polyester or cotton. ? Wash your hands often. ? Do not allow pets in your bedroom. ??? Avoid breathing in cold air when you exercise. General instructions ??? Have a plan for seeking medical care. Know when to call your health care provider and local emergency services, and where to get emergency care. ??? Stay up to date on your immunizations. ??? When you have an episode of bronchospasm, stay calm. Try to relax and breathe more slowly. ??? If you have asthma, make sure you have an asthma action plan. ??? Keep all follow-up visits as told by your health care provider. This is important. Contact a health care provider if: ??? You have muscle aches. ??? You have chest pain. ??? The mucus that you cough up (sputum) changes from clear or white to yellow, green, harris, or bloody. ??? You have a fever. ??? Your sputum gets thicker. Get help right away if: ??? Your wheezing and coughing get worse, even after you take your prescribed medicines. ??? It gets even harder to breathe. ??? You develop severe chest pain. Summary ??? Bronchospasm is a tightening of the airways going into the lungs. ??? During an episode of bronchospasm, you may have a harder time breathing. You may cough and make a whistling sound when you breathe (wheeze). ??? Avoid exposure to triggers such as smoke, dust, mold, animal dander, and fragrances. ??? When you have an episode of bronchospasm, stay calm. Try to relax and breathe more slowly. This information is not intended to replace advice given to you by your health care provider. Make sure you discuss any questions you have with your health care provider. Document Released: 03/19/2004 Document Revised: 02/27/2018 Document Reviewed: 03/13/2017 [employer]' Patient Education ?? 2020 [employer]. Emergency Awareness and Preventative Care STROKE is [...] Assistance with quitting is available by contacting 7-568-CNRJ-NOW. This is a free resource providing counseling, [...] was given the opportunity to ask questions. Patient/Elevator Operator Service Name: Patient/Elevator Operator Service Signature: Relationship to Patient: Clinician/Hospital Elevator Operator Service Signature: Please Provide a Telephone Number Where You Can Be Reached: Is it Permissible To Leave a Message? Date: Electronically signed by Sana, [facility] Conversion Hardening Machine Operator Helper Sandeep at 07/15/2022 8:05 AM CDT documented in this encounter Plan of Treatment Not on file documented as of this encounter Visit Diagnoses Not on filedocumented in this encounter Care Teams Medical Unit Secretary Relationship Specialty Start Date End Date Manuel Bingham MD [address] [place] [address] PCP - General Family Medicine 07/31/24 documented as of this encounter
--- OUTSIDE RECORDS SUMMARY | 2024-10-25 12:50 | XMS_ITS | Encounter Summary ---
Author Organization [employer] ([place], [place], [place], [place]) Address [address] [place] [address] Care Team Providers Care State Auditor Name Role Phone Manuel Bingham MD Primary Care Provider + Encounter Details Date Type Department Care Team (Late st Contact Info) Description 11/30/2019 Transcribed Document [facility] [place] [facility] [place] [address] ProviderJohn MD [address] [place] [address] Social History Tobacco Use Types Packs/Day Years Used Date Smoking Tobacco: Never Assessed Comments Unknown Sex and Gender Information Value Date Recorded Sex Assigned at Not on file Legal Sex Female 4:40 PM CDT Gender Identity Not on file Sexual Orientation Not on file documented as of this encounter Miscellaneous Notes * Cerner Conversion Note - John ProviderMD - 11/30/2019 4:18 AM CDT ED Discharge Entered On: 11/30/2019 5:15 EDT Performed On: 11/30/2019 4:18 EDT by Sydni Guerra Rn Discharge Process Patient Disposition : Discharge Personal Belongings With Patient : Yes Patient Education Completed : Yes Teaching Evaluation : Verbalizes understanding IV Discontinued : Yes Nursing Documentation Completed : Yes Sydni Guerra Rn - 11/30/2019 5:15 EDT ED Discharge Discharge To : Home with ambulatory/outpatient follow-up Mode Of Departure : Ambulatory Accompanied By : Unaccompanied Discharge Instructions Reviewed With, Opportunity For Questions Given : Patient Prescriptions Given to Patient : Yes Number of Prescriptions Given : 1 Medications Given to Patient : Yes Number of Medications Given : 1 Sydni Guerra, Rn - 11/30/2019 5:15 EDT documented in this encounter Plan of Treatment Not on file documented as of this encounter Visit Diagnoses Not on filedocumented in this encounter Care Teams State Auditor Relationship Specialty Start Date End Date Manuel Bingham MD [address] [place] [address] PCP - General Family Medicine 07/31/24 documented as of this encounter
== END 2024-10-20 23:59 | disposition home or self-care (01) ==
LOC: LAB.DROPOF 10-25 12:46
PROVIDERS: PCP Family Medicine; Visit Provider Family Medicine
DX: N17.9 Acute kidney failure, unspecified (principal)
CPT/HCPCS: 80053; 85025

== ENCOUNTER 2024-10-27 07:26 | Outpatient (CLI) | payer OTHER, MEDICARE, MEDICAID, SELFPAY ==
--- OUTSIDE RECORDS SUMMARY | 2024-10-27 07:28 | XMS_ITS | Encounter Summary ---
Author Organization [employer] ([place], [place], [place], [place]) Address [address] [place] [address] Care Team Providers Care Coagulating Drying Supervisor Name Role Phone Manuel Bingham MD Primary Care Provider [phone] Encounter Details Date Type Department Care Team (Late st Contact Info) Description 03/24/2019 Transcribed Document [facility] [place] Family Medicine [address] [place] [address] ProviderJohn MD [address] [place] [address] Social History Tobacco Use Types Packs/Day Years Used Date Smoking Tobacco: Never Assessed Comments Unknown Sex and Gender Information Value Date Recorded Sex Assigned at Not on file Legal Sex Female 4:40 PM CDT Gender Identity Not on file Sexual Orientation Not on file documented as of this encounter Miscellaneous Notes * Cerner Conversion Note - Historical ProviderMD - 03/24/2019 4:15 PM OUTLET MANAGER Pain Assessment Entered On: 03/24/2019 17:06 EST [...] on filedocumented in this encounter Care Teams Coagulating Drying Supervisor Relationship Specialty Start Date End Date Manuel Bingham MD [address] [place] [address] PCP - General Family Medicine 07/31/24 documented as of this encounter
--- OUTSIDE RECORDS SUMMARY | 2024-10-27 07:28 | XMS_ITS | Encounter Summary ---
Author Organization [employer] ([place], [place], [place], [place]) Address [address] [place] [address] Care Team Providers Care Cashier Tube Room Name Role Phone Manuel Bingham MD Primary Care Provider +[phone] Encounter Details Date Type Department Care Team (Late st Contact Info) Description 03/24/2019 Transcribed Document [facility] [place] [address] [place] [address] ProviderJohn MD [address] [place] [address] Social History Tobacco Use Types Packs/Day Years Used Date Smoking Tobacco: Never Assessed Comments Unknown Sex and Gender Information Value Date Recorded Sex Assigned at Not on file Legal Sex Female 4:40 PM CDT Gender Identity Not on file Sexual Orientation Not on file documented as of this encounter Miscellaneous Notes * Cerner Conversion Note - John ProviderMD - 03/24/2019 5:07 PM INSURANCE SALES ASSOCIATE ED Discharge Entered On: 03/24/2019 17:07 EST [...] LAZARO KHALIL RN-Resource - 03/24/2019 17:07 EST Electronically signed by Sana, [facility] Conversion Exhibition Designer Cerner at 07/15/2022 8:22 AM CDT documented in this encounter Plan of Treatment Not on file documented as of this encounter Visit Diagnoses Not on filedocumented in this encounter Care Teams Cashier Tube Room Relationship Specialty Start Date End Date Manuel Bingham MD [address] [place] [address] PCP - General Family Medicine 07/31/24 documented as of this encounter
--- OUTSIDE RECORDS SUMMARY | 2024-10-27 07:28 | XMS_ITS | Encounter Summary ---
Author Organization [employer] ([place], [place], [place], [place]) Address [address] [place] [address] Care Team Providers Care Smocker Name Role Phone Manuel Bingham MD Primary Care Provider + Encounter Details Date Type Department Care Team (Late st Contact Info) Description 05/27/2019 Transcribed Document [facility] [place] Family Medicine [address] [place] [address] ProviderJohn MD [address] [place] [address] Social History Tobacco Use Types Packs/Day Years Used Date Smoking Tobacco: Never Assessed Comments Unknown Sex and Gender Information Value Date Recorded Sex Assigned at Not on file Legal Sex Female 4:40 PM CDT Gender Identity Not on file Sexual Orientation Not on file documented as of this encounter Miscellaneous Notes * Cerner Conversion Note - Historical ProviderMD - 05/27/2019 6:13 PM RECORDS ANALYSIS MANAGER ED Assessment Entered On: 05/27/2019 19:43 EST [...] Communication Barrier : None Primary Language : Dutch Any Spiritual/Cultural Needs or Requests : No [...] - 05/27/2019 19:43 EST Electronically signed by [facility] Conversion Fruit Cutter Cerner at 07/15/2022 8:16 AM CDT documented in this encounter Plan of Treatment Not on file documented as of this encounter Visit Diagnoses Not on filedocumented in this encounter Care Teams Smocker Relationship Specialty Start Date End Date Manuel Bingham MD [address] [place] [address] PCP - General Family Medicine 07/31/24 documented as of this encounter
--- OUTSIDE RECORDS SUMMARY | 2024-10-27 07:28 | XMS_ITS | Encounter Summary ---
Author Organization [employer] ([place], [place], [place], [place]) Address [address] [place] [address] Care Team Providers Care Primer Inserting Machine Operator Name Role Phone Manuel Bingham MD Primary Care Provider + Encounter Details Date Type Department Care Team (Late st Contact Info) Description 05/27/2019 Transcribed Document [facility] [place] [address] [place] [address] ProviderJohn MD [address] [place] [address] Social History Tobacco Use Types Packs/Day Years Used Date Smoking Tobacco: Never Assessed Comments Unknown Sex and Gender Information Value Date Recorded Sex Assigned at Not on file Legal Sex Female 4:40 PM CDT Gender Identity Not on file Sexual Orientation Not on file documented as of this encounter Miscellaneous Notes * Cerner Conversion Note - John ProviderMD - 05/27/2019 9:29 PM SANITATION OFFICER ED Discharge Entered On: 05/27/2019 21:29 EST [...] 05/27/2019 21:29 EST Electronically signed by Sana, [facility] Conversion Promotion Producer Cerner at 07/15/2022 8:13 AM CDT documented in this encounter Plan of Treatment Not on file documented as of this encounter Visit Diagnoses Not on filedocumented in this encounter Care Teams Primer Inserting Machine Operator Relationship Specialty Start Date End Date Manuel Bingham MD [address] [place] [address] PCP - General Family Medicine 07/31/24 documented as of this encounter
--- OUTSIDE RECORDS SUMMARY | 2024-10-27 07:28 | XMS_ITS | Encounter Summary ---
Author Organization Healthcare Address [address] [place] [address] Care Team Providers Care Assistant Import Manager Name Role Phone Arben Rao MD Primary Care Provider + [phone] Adeola Camara MD Unavailable Encounter Details Date Type Department Care Team (Late st Contact Info) Description 09/20/2024 Orders Only [facility] Sleep Disorder Center [address] [place] [address] Nicki Moeller Social History Tobacco [...] Procedure Name Priority Date/Time Associated Diagnosis Comments [facility] ORDER Routine 09/20/2024 10:07 AM EDT documented in this encounter Results * DME Order (09/20/2024 10:07 AM EDT) [facility] SUPPLIER NAME [facility] PAR[facility]UTE SUPPLIER PHONE [...] 09/20/2024 10:0 7 AM EDT Rosita Sutton WATER SUPPLY ENGINEER DME ORDERABLES Final R esult [facility] [...] documented as of this encounter Care Teams Assistant Import Manager Relationship Specialty Start Date End Date Arben Rao MD [address] [place] [address] PCP - General 09/04/21 Adeola Camara MD [address] [facility] [address] [place] [address] Surgeon Neurosurgery 09/04/21 documented as of this encounter
--- OUTSIDE RECORDS SUMMARY | 2024-10-27 07:28 | XMS_ITS | Clinical Summary ---
[facility] Organization [facility] Address [address] [place] [address] Care Team Providers Care Mender Knit Goods Name Role Phone Juan M Manjinder Styles DO Primary Care Provider [phone] Allergies No known active allergies Medications aspirin [...] Description 12/16/2024 9:30 AM EDT Office Visit [facility] PULMONARY & CRITICAL CARE MEDICINE [address] [facility] [address] [place] [address] 12/16/2024 10:00 AM EDT Office Visit [facility] PULMONARY & CRITICAL CARE MEDICINE [address] [place] [address] Manjinder Sauceda MD [address] [place] [address] 12/16/2024 11:00 AM EDT Office Visit [facility] OBGYN [address] [place] [address] Manjinder Franklin MD [address] [facility] [address] [place] [address] Health Maintenance Due Date Last Done Comments [...] Final Result from Last 3 Months Insurance [facility] MEDICARE ADVANTAGE HMO MEDICARE A & B Care Teams Mender Knit Goods Relationship Specialty Start Date End Date Manjinder Mcgowan DO [address] [place] [address] [address] [place] [address] PCP - General Internal Medicine 06/08/24
--- OUTSIDE RECORDS SUMMARY | 2024-10-27 07:28 | XMS_ITS | Encounter Summary ---
Author Organization [employer] ([place], [place], [place], [place]) Address [address] [place] [address] Care Team Providers Care Hotbed Transfer Operator Name Role Phone Manuel Bingham MD Primary Care Provider + Encounter Details Date Type Department Care Team (Late st Contact Info) Description 08/24/2021 Transcribed Document [facility] [place] Family Medicine [facility] [place] [address] ProviderJohn MD [address] [place] [address] Social History Tobacco Use Types Packs/Day Years [...] graduated high school. 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 She is single with two children. She was previously , although she did not recall when she or how long she has been . Ms. Sawyer currently attends outpatient counseling and she receives psychopharmacological intervention at an unspecified clinic in [place]. She referred to her therapist as, ??? [...] Sawyer was unaware that she was in [place] for the assessment. She stated she was currently in [place]. She was aware of the current fixed income trading vice president. She was able to tell me her address, although she provided me with the incorrect zip code. Ms. aSwyer was unable to accurately draw a clock [...] and depression. This note was dictated using [employer] voice recognition software. Cc: Sweta Lion D.O. Electronically signed by Sana [facility] Conversion Upholsterer Helper Cerner at 07/15/2022 8:24 AM CDT documented in this encounter Plan of Treatment Not on file documented as of this encounter Visit Diagnoses Not on filedocumented in this encounter Care Teams Hotbed Transfer Operator Relationship Specialty Start Date End Date Manuel Bingham MD [address] [place] [address] PCP - General Family Medicine 07/31/24 documented as of this encounter
--- OUTSIDE RECORDS SUMMARY | 2024-10-27 07:28 | XMS_ITS | Encounter Summary ---
Author Organization [employer] ([place], [place], [place], [place]) Address [address] [place] [address] Care Team Providers Care Trolley Car Operator Name Role Phone Manuel Bingham MD Primary Care Provider [phone] Encounter Details Date Type Department Care Team (Late st Contact Info) Description 03/24/2019 Transcribed Document [facility] [place] [address] [place] [address] ProviderJohn MD [address] [place] [address] Social History Tobacco Use Types Packs/Day Years Used Date Smoking Tobacco: Never Assessed Comments Unknown Sex and Gender Information Value Date Recorded Sex Assigned at Not on file Legal Sex Female 4:40 PM CDT Gender Identity Not on file Sexual Orientation Not on file documented as of this encounter Miscellaneous Notes * Cerner Conversion Note - John ProviderMD - 03/24/2019 4:23 PM CHILD DAY CARE TEACHER Electronically signed by [facility] Conversion Paralegal Assistant Cerner at 07/15/2022 8:16 AM CDT documented in this encounter Plan of Treatment Not on file documented as of this encounter Visit Diagnoses Not on filedocumented in this encounter Care Teams Trolley Car Operator Relationship Specialty Start Date End Date Manuel Bingham MD [address] [place] [address] PCP - General Family Medicine 07/31/24 documented as of this encounter
--- OUTSIDE RECORDS SUMMARY | 2024-10-27 07:28 | XMS_ITS | Encounter Summary ---
Author Organization [employer] ([place], [place], [place], [place]) Address [address] [place] [address] Care Team Providers Care Event Promotions Coordinator Name Role Phone Manuel Bingham MD Primary Care Provider + Encounter Details Date Type Department Care Team (Late st Contact Info) Description 05/27/2019 Transcribed Document [facility] [place] [address] [place] [address] ProviderJohn MD [address] [place] [address] Social History Tobacco Use Types Packs/Day Years Used Date Smoking Tobacco: Never Assessed Comments Unknown Sex and Gender Information Value Date Recorded Sex Assigned at Not on file Legal Sex Female 4:40 PM CDT Gender Identity Not on file Sexual Orientation Not on file documented as of this encounter Miscellaneous Notes * Cerner Conversion Note - Historical ProviderMD - 05/27/2019 6:13 PM SURGERY CONSULTANT [place] Suicide Severity Rating Scale (C-SSRS) Entered On: 05/27/2019 19:40 EST Performed On: 05/27/2019 19:40 EST by JUDIE CELIS RN [place] Suicide Severity Rating Scale (C-SSRS) CSSRS Past Month Wish to be : No CSSRS Past Month Suicidal Thoughts : No CSSRS Lifetime Suicide Behavior : No Suicide Severity Rating Score : 0 Suicide Severity Rating : No Additional Care Required at this time JUDIE CELIS RN - 05/27/2019 19:40 EST Electronically signed by Sana [facility] Conversion Health Care Coach Cerner at 07/15/2022 8:09 AM CDT documented in this encounter Plan of Treatment Not on file documented as of this encounter Visit Diagnoses Not on filedocumented in this encounter Care Teams Event Promotions Coordinator Relationship Specialty Start Date End Date Manuel Bingham MD [address] [place] [address] PCP - General Family Medicine 07/31/24 documented as of this encounter
--- OUTSIDE RECORDS SUMMARY | 2024-10-27 07:28 | XMS_ITS | Encounter Summary ---
Author Organization Healthcare Address [address] [place] [address] Care Team Providers Care Work Checker Name Role Phone Arben Rao MD Primary Care Provider + [phone] Adeola Camara MD Unavailable Encounter Details Date Type Department Care Team (Late st Contact Info) Description 09/02/2024 Results Follow-Up [facility] Sleep Disorder Center [address] [place] [address] Esteban Sutton, BERNARDO [address] [place] [address] Social History Tobacco Use Types [...] documented as of this encounter Care Teams Work Checker Relationship Specialty Start Date End Date Arben Rao MD [address] [place] [address] PCP - General 09/04/21 Adeola Camara MD [address] [facility] [address] [place] [address] Surgeon Neurosurgery 09/04/21 documented as of this encounter
--- OUTSIDE RECORDS SUMMARY | 2024-10-27 07:28 | XMS_ITS | Encounter Summary ---
Author Organization [employer] ([place], [place], [place], [place]) Address [address] [place] [address] Care Team Providers Care Ic Designer Custom Name Role Phone Manuel Bingham MD Primary Care Provider + Encounter Details Date Type Department Care Team (Late st Contact Info) Description 05/27/2019 Transcribed Document [facility] [place] Medicine [address] [place] [address] ProviderJohn MD [address] [place] [address] Social History Tobacco Use Types [...] - John ProviderMD - 05/27/2019 9:29 PM ELECTRONIC FIELD [place] [address] JESSICA SAWYER :1970 Visit Time:05/27/2019 Your Visit [...] these instructions at home: Medicines ??? Take xanr-dip-alwtslp and prescription medicines only as told by [...] 03/14/2001 Document Revised: 11/13/2016 Document Reviewed: 07/10/2015 [employer] Patient Education ?? 2019 [employer]. Pharyngitis Pharyngitis is redness, pain, and swelling [...] Follow these instructions at home: ??? Take hzbw-iyv-hjrsuzc and prescription medicines only as told by [...] 03/17/2006 Document Revised: 04/22/2017 Document Reviewed: 04/22/2017 [employer] Patient Education ?? 2019 [employer] Emergency Awareness and Preventative Care STROKE [...] Assistance with quitting is available by contacting [phone]-RVWVNOW. This is a free resource providing counseling, [...] was given the opportunity to ask questions. Patient/Fur Plucker Name: Patient/Fur Plucker Signature: Relationship to Patient: Clinician/Hospital Fur Plucker Signature: Please Provide a Telephone Number Where You Can Be Reached: Is it Permissible To Leave a Message? Date: Electronically signed by Sana, [facility] Conversion Sole Cutter Cerner at 07/15/2022 8:17 AM CDT documented in this encounter Plan of Treatment Not on file documented as of this encounter Visit Diagnoses Not on filedocumented in this encounter Care Teams Ic Designer Custom Relationship Specialty Start Date End Date Manuel Bingham MD [address] [place] [address] PCP - General Family Medicine 07/31/24 documented as of this encounter
--- OUTSIDE RECORDS SUMMARY | 2024-10-27 07:28 | XMS_ITS | Encounter Summary ---
Author Organization [employer] ([place], [place], [place], [place]) Address [address] [place] [address] Care Team Providers Care Slate Trimmer Name Role Phone Manuel Bingham MD Primary Care Provider [phone] Encounter Details Date Type Department Care Team (Late st Contact Info) Description 05/27/2019 Transcribed Document [facility] [place] Family Medicine [address] [place] [address] ProviderJohn MD [address] [place] [address] Social History Tobacco Use Types Packs/Day Years Used Date Smoking Tobacco: Never Assessed Comments Unknown Sex and Gender Information Value Date Recorded Sex Assigned at Not on file Legal Sex Female 4:40 PM CDT Gender Identity Not on file Sexual Orientation Not on file documented as of this encounter Miscellaneous Notes * Cerner Conversion Note - John ProviderMD - 05/27/2019 8:32 PM HEAD OF SALES PROMOTION Electronically signed by [facility] Conversion Double Needle Operator Cerner at 07/15/2022 8:17 AM CDT documented in this encounter Plan of Treatment Not on file documented as of this encounter Visit Diagnoses Not on filedocumented in this encounter Care Teams Slate Trimmer Relationship Specialty Start Date End Date Manuel Bingham MD [address] [place] [address] PCP - General Family Medicine 07/31/24 documented as of this encounter
--- OUTSIDE RECORDS SUMMARY | 2024-10-27 07:28 | XMS_ITS | Encounter Summary ---
Author Organization [employer] ([place], [place], [place], [place]) Address [address] [place] [address] Care Team Providers Care Internet Sales Associate Name Role Phone Manuel Bingham MD Primary Care Provider + Encounter Details Date Type Department Care Team (Late st Contact Info) Description 05/27/2019 Transcribed Document [facility] Radiology [address] [place] [address] Devyn Gross MD [address] [place] [address] Dept[place] [address] Social History Tobacco Use Types Packs/Day Years [...] Surgical history: heart cath. Endometrial Ablation. Cholecystectomy; (86896). colonoscopy. d&c. right carpal tunnel and right [...] EST Height Source Stated Height Entry Format [place] Height/Length, SWEDISH (ft) 5 ft Height/Length SWEDISH 0 Inch CLINICALHEIGHT 152.4 cm [place] Body Weight 45.16 kg Weight Source, ED Critical estimated dosing weight Weight Entry Format [place] Weight [place] lb 193 lb CLINICALWEIGHT 87.73 kg Body [...] on filedocumented in this encounter Care Teams Internet Sales Associate Relationship Specialty Start Date End Date Manuel Bingham MD [address] [place] [address] PCP - General Family Medicine 07/31/24 documented as of this encounter
--- OUTSIDE RECORDS SUMMARY | 2024-10-27 07:28 | XMS_ITS | Encounter Summary ---
Author Organization [employer] ([place], [place], [place], [place]) Address [address] [place] [address] Care Team Providers Care Remote Pilot Operator Name Role Phone Manuel Bingham MD Primary Care Provider + Encounter Details Date Type Department Care Team (Late st Contact Info) Description 02/28/[address] [facility] [place] Medicine [address] [place] [address] ProviderJohn MD [address] [place] [address] Social History Tobacco Use Types [...] John Frank MD - 02/28/2020 5:51 AM [place] [address] JESSICA SAWYER :1970 Visit Time:02/27/2020 Your Visit [...] Follow Up with Follow-up with Patient Resource Counterperson at [phone] in 2 to 3 days When Within [...] range between ( 1.0 and 7.0 ) Owen #: 0.24 K/uL -- Normal range between ( 0.24 and 0.82 ) Eos #: 0.00 K/uL -- Normal range between ( 0.04 and 0.54 ) Owen %: 4.9 % -- Normal range between [...] if you have questions about pets: https://www.cdc.gov/coronavirus/2019- ncov/faq.html#LQXMA51mswhgga Monitor your symptoms. ??? Common symptoms of [...] and need to call 911, notify the monogram operator that you have or think you [...] clean your hands with an alcohol-based hand access services librarian that contains at least 60% alcohol. Clean your hands often. ??? Wash your handsoften with soap and water for at least 20 seconds. This is especially important after blowing your nose, coughing, or sneezing; going to the bathroom; and before eating or preparing food. ??? Use hand access services librarian if soap and water are not available. Use an alcohol-based hand access services librarian with at least 60% alcohol, covering all [...] and water or put them in the wardrobe mistress. Clean all high-touch surfaces everyday. ??? Clean [...] body fluids on them. ??? Use household portfolio analyst and disinfectants. Clean the area or item [...] 07/13/2019 Document Revised: 07/16/2019 Document Reviewed: 07/13/2019 [employer] Patient Education ?? 2020 [employer]. COVID-19: How to Protect Yourself and Others Know how it spreads ??? There is currently no vaccine to prevent coronavirus disease 2019 (COVID-19). ??? The best way to prevent illness is to avoid being exposed to this virus. ??? The virus is thought to spread mainly from hrdmss-hq-hwhpoq. ? Between people who are in close [...] are not readily available, use a hand access services librarian that contains at least 60% alcohol. Cover [...] are at higher risk of getting very sick.https://www.cdc.gov/coronavirus/2019-ncov/oiyg-okunu-zdaeewjgyps/people-a z-ctiroe-aswz.html Cover your mouth and nose with a cloth face cover when around others ??? You could spread COVID-19 to others even if you do not feel sick. ??? Everyone should wear a cloth face cover when they have to go out in public, for example to the grocery store or to berry picker machine operator other necessities. ? Cloth face coverings should [...] available, clean your hands with a hand access services librarian that contains at least 60% alcohol. Clean and disinfect ??? Clean AND disinfect frequently touched surfaces daily. This includes tables, doorknobs, light switches, countertops, handles, desks, phones, keyboards, toilets, faucets, and sinks. https://www.cdc.gov/coronavirus/2019-ncov/gfrudya-ofbpwed-jdlq/disinfecting-yo ur-home.html ??? If surfaces are dirty, clean them: Use detergent or soap and water prior to disinfection. cdc.gov/coronavirus 07/10/2019 This information is not intended to replace advice given to you by your health care provider. Make sure you discuss any questions you have with your health care provider. Document Released: 07/13/2019 Document Revised: 07/16/2019 Document Reviewed: 07/13/2019 Elsevier Patient Education ?? 2020 [employer]eller. COVID-19 Frequently Asked Questions COVID-19 (coronavirus disease) is an infection that is caused by a large family of viruses. Some viruses cause illness in people and others cause illness in animals like camels, cats, and bats. In some cases, the viruses that cause illness in animals can spread to humans. Where did the coronavirus come from? In February 2019, [place] told the World Health Organization (WHO) of several cases of lung disease (human respiratory illness). These cases were linked to an open seafood and livestock market in the city of [facility]. The link to the seafood and livestock [...] and virus naming World Health Organization (WHO): www.who.int/emergencies/diseases/vtklx-tdpgkdabpce-6541/technical-guidance/nam bki-tcj-xymottvnidh-disease-(covid-2019)-out-pkf-xaqki-edcd-fbymla-ob Who is at risk for complications from [...] relieve his or her symptoms by using rjvy-lio-vaycfyl medicines that treat sneezing, coughing, and runny [...] water are not available, use alcohol-based hand access services librarian. ??? Avoid touching your face, mouth, nose, [...] (CDC): www.cdc.gov/coronavirus/2019-ncov/travelers/index.html ??? World Health Organization (WHO): www.who.int/emergencies/diseases/lepmm-jvacuhzmxqb-8408/travel-advice Know the risks and take action to [...] water are not available, use alcohol-based hand access services librarian. ??? Cough or sneeze into a tissue, [...] in hot, soapy water or use a wardrobe mistress. Air-dry your dishes. ??? Wash laundry in [...] Organization (WHO) ??? Information and news updates: www.who.int/emergencies/diseases/tqipq-ruygmbeatmg-2242 ??? Coronavirus health topic: www.who.int/health-topics/coronavirus ??? Questions and answers on COVID-19: www.who.int/news-room/q-a-detail/k-m-zkgbjyxprmdmo ??? Global tracker: who.Uploadcare [place] Academy of Pediatrics (AAP) ??? Information for families: www.healthychildren.org/Chinese/health-issues/conditions/chest-lungs/Pages/201 5-Zdocr-Dskwwirlnsp.aspx The coronavirus situation is changing rapidly. Check [...] 07/13/2019 Document Revised: 07/13/2019 Document Reviewed: 07/13/2019 Socialance Patient Education ?? 2020 [employer] Inc. Emergency Awareness and Preventative Care STROKE [...] Assistance with quitting is available by contacting 5-092-HSMMNOW. This is a free resource providing counseling, support, and referral. Or you may contact your personal physician. [place] Suicide Prevention Lifeline: The National Suicide Prevention [...] was given the opportunity to ask questions. Patient/Bullet Swaging Machine Operator Name: Patient/Bullet Swaging Machine Operator Signature: Relationship to Patient: Clinician/Hospital Bullet Swaging Machine Operator Signature: Please Provide a Telephone Number Where You Can Be Reached: Is it Permissible To Leave a Message? Date: Electronically signed by Interface, [facility] Conversion Manager Business Continuity Cerner at 07/15/2022 8:27 AM CDT documented in this encounter Plan of Treatment Not on file documented as of this encounter Visit Diagnoses Not on filedocumented in this encounter Care Teams Remote Pilot Operator Relationship Specialty Start Date End Date Manuel Bingham MD [address] [place] [address] PCP - General Family Medicine 07/31/24 documented as of this encounter
--- OUTSIDE RECORDS SUMMARY | 2024-10-27 07:28 | XMS_ITS | Encounter Summary ---
Author Organization [employer] ([place], [place], [place], [place]) Address [address] [place] [address] Care Team Providers Care Scraper Hand Name Role Phone Manuel Bingham MD Primary Care Provider + Encounter Details Date Type Department Care Team (Late st Contact Info) Description 05/27/2019 Transcribed Document [facility] [place] [facility] [place] [address] ProviderJohn MD [address] [place], [place] [address] Social History Tobacco Use Types Packs/Day Years Used Date Smoking Tobacco: Never Assessed Comments Unknown Sex and Gender Information Value Date Recorded Sex Assigned at Not on file Legal Sex Female 4:40 PM CDT Gender Identity Not on file Sexual Orientation Not on file documented as of this encounter Miscellaneous Notes * Cerner Conversion Note - John ProviderMD - 05/27/2019 6:13 PM LACQUER DIPPING MACHINE OPERATOR ED Triage Entered On: 05/27/2019 18:35 EST [...] EST DCP GENERIC CODE Tracking Group : [facility] ED [facility] LIS VASQUEZ RN - 05/27/2019 18:33 [...] 05/27/2019 18:35:50 EST) Problems(Active) Anxiety (SNOMED CT :35168363 ) Name of Problem: Anxiety ; Recorder: Pearl Espino RN; Confirmation: Confirmed ; Classification: Medical ; Code: [id number] ; Contributor System: PubNativeChart ; Last Updated: 12/19/2016 10:22 EDT ; Life Cycle Date: 12/22/2015 ; Life Cycle Status: Active ; Vocabulary: SNOMED CT Endometriosis (SNOMED CT :2507859470 ) Name of Problem: Endometriosis ; Recorder: Pearl Espino RN; Confirmation: Confirmed ; Classification: Medical ; Code: [id number] ; Contributor System: PowerChart ; Last Updated: 12/22/2015 6:56 EDT ; Life Cycle Date: 12/22/2015 ; Life Cycle Status: Active ; Vocabulary: SNOMED CT HTN (SNOMED CT :1578314793 ) Name of Problem: HTN ; Recorder: Pearl Espino RN; Confirmation: Confirmed ; Classification: Medical ; Code: [id number] ; Contributor System: PubNativeChart ; Last Updated: 09/30/2016 16:39 EDT ; Life Cycle Date: 12/22/2015 ; Life Cycle Status: Active ; Vocabulary: SNOMED CT S/P hysterectomy (SNOMED CT :562116998 ) Name of Problem: S/P hysterectomy ; Recorder: BELIA VELÁZQUEZ RN; Confirmation: Confirmed ; Classification: Medical ; Code: [id number] ; Contributor System: PowerChart ; Last Updated: [...] PNED ; Probability: 0 ; Diagnosis Code: [id number] ED Height and Weight Height Source : Stated Height Entry Format : [place] Height, Feet : 5 ft(Converted to: 152 cm, 60 Inch) Height, Inches : 0 Inch(Converted to: 0 ft 0 Inch, 0.00 cm) Clinical Height : 152.4 cm Weight Source, ED : Critical estimated dosing weight Weight Entry Format : [place] Weight, Pounds : 193 lb Clinical Dosing Weight : 87.73 kg Body Surface Area (BSA) : 1.84 m2 Body Mass Index : 37.8 kg/m2 (HI) [place] Body Weight (IBW) : 45.16 kg LIS VASQUEZ RN - 05/27/2019 18:33 EST documented in this encounter Plan of Treatment Not on file documented as of this encounter Visit Diagnoses Not on filedocumented in this encounter Care Teams Scraper Hand Relationship Specialty Start Date End Date Manuel Bingham MD [address] [place] [address] PCP - General Family Medicine 07/31/24 documented as of this encounter
--- OUTSIDE RECORDS SUMMARY | 2024-10-27 07:28 | XMS_ITS | Encounter Summary ---
Author Organization [employer] ([place], [place], [place], [place]) Address [address] [address] Care Team Providers Care Bowling Ball Grader Name Role Phone Manuel Bingham MD Primary Care Provider + Encounter Details Date Type Department Care Team (Late st Contact Info) Description 02/28/2020 Transcribed Document [facility] [place] Family Medicine [facility] [place] [address] ProviderJohn MD [address] [place], [place] [id number] Social History Tobacco Use Types Packs/Day Years Used Date Smoking Tobacco: Never Assessed Comments Unknown Sex and Gender Information Value Date Recorded Sex Assigned at Not on file Legal Sex Female 4:40 PM CDT Gender Identity Not on file Sexual Orientation Not on file documented as of this encounter Miscellaneous Notes * Cerner Conversion Note - Historical MD Monika - 02/28/2020 2:04 AM INSPECTOR MOTOR VEHICLES Patient: JESSICA SAWYER Age: 49 years Sex: [...] Surgical history: heart cath. Endometrial Ablation. Cholecystectomy; (17894). colonoscopy. d&c. right carpal tunnel and right [...] EST Height Source Measured Height Entry Format [place] Height/Length, [place]I (ft) 4 ft Height/Length [place] 11 Inch CLINICALHEIGHT 149.86 cm [place] Body Weight 42.87 kg Weight Source, ED Standing scale Weight Entry Format [place] Weight [place] lb 190 lb CLINICALWEIGHT 86.36 kg Body [...] % 24.2 % Lymph # 1.19 K/uL [place] % 4.9 % [place] # 0.24 K/uL Eos % 0.0 % [...] SEX: 1970 / Female MRN / ACC#: [id number] / [id number] ORDERING PHYSICIAN: Ordering Provider, Update EXAM REQUESTED: [id number]--BTT CHEST FACILITY: [facility] DATE: 02/28/2020 RADIOLOGIST NAME: Vaughn Saravia [...] No rash, no cyanosis, capillary refill brisk REROLLING MACHINE OPERATOR: Awake alert oriented ??4, nonfocal exam Psych: [...] [facility] COVID-19 Patient Education Overview and Infographic (British) (CUSTOM), Prevent the Spread of COVID-19 if You Are Sick - [facility]. Follow up with: ; [place] Within 2 to 3 days; Follow-up with Patient Resource Supervisor Drawing at [phone] in 2 to 3 days Within 2 [...] on filedocumented in this encounter Care Teams Bowling Ball Grader Relationship Specialty Start Date End Date Manuel Bingham MD [address] [place] [address] PCP - General Family Medicine 07/31/24 documented as of this encounter
--- OUTSIDE RECORDS SUMMARY | 2024-10-27 07:28 | XMS_ITS | Encounter Summary ---
Author Organization Healthcare Address [address] [place] [address] Care Team Providers Care Dross Skimmer Name Role Phone Arben Rao MD Primary Care Provider + [phone] Adeola Camara MD Unavailable Encounter Details Date Type Department Care Team (Late st Contact Info) Description 09/14/2024 Orders Only [facility] Sleep Disorder Center [address] [place] [address] Nicki Moeller Social History Tobacco [...] documented as of this encounter Care Teams Dross Skimmer Relationship Specialty Start Date End Date Arben Rao MD [address] [place] [address] PCP - General 09/04/21 Adeola Camara MD [address] [address] Surgeon Neurosurgery 09/04/21 documented as of this encounter
--- OUTSIDE RECORDS SUMMARY | 2024-10-27 07:28 | XMS_ITS | Encounter Summary ---
Author Organization [employer] ([place], [place], [place], [place]) Address [address] [place] [address] Care Team Providers Care Advertising Sales Representative Name Role Phone Manuel Bingham MD Primary Care Provider + Encounter Details Date Type Department Care Team (Late st Contact Info) Description 03/24/2019 Transcribed Document [facility] [place] [address] [place] [address] ProviderJohn MD [address] [place] [address] Social History Tobacco Use Types Packs/Day Years Used Date Smoking Tobacco: Never Assessed Comments Unknown Sex and Gender Information Value Date Recorded Sex Assigned at Not on file Legal Sex Female 4:40 PM CDT Gender Identity Not on file Sexual Orientation Not on file documented as of this encounter Miscellaneous Notes * Cerner Conversion Note - Historical MD Monika - 03/24/2019 4:56 PM PATENT COUNSEL CR Chest 1 Vw Portable Ordered: 03/24/2019 Modified Reason for Exam: chest pain 03/24/2019 15:54 03/24/2019 16:56 (BREANA LUU, LABELING STRATEGIST-EMR) Reviewed by Provider, No further action required x1 documented in this encounter Plan of Treatment Not on file documented as of this encounter Visit Diagnoses Not on filedocumented in this encounter Care Teams Advertising Sales Representative Relationship Specialty Start Date End Date Manuel Bingham MD [address] [place] [address] [phone] PCP - General Family Medicine 07/31/24 documented as of this encounter
--- OUTSIDE RECORDS SUMMARY | 2024-10-27 07:29 | XMS_ITS | Encounter Summary ---
Author Organization [employer] ([place], [place], [place], [place]) Address [address] [place] [address] Care Team Providers Care Noc Engineer Name Role Phone Manuel Bingham MD Primary Care Provider + Encounter Details Date Type Department Care Team (Late st Contact Info) Description 02/24/2020 Transcribed Document [facility] [place] [facility] [place] [address] ProviderJohn MD [address] [place] [id number] Social History Tobacco Use Types Packs/Day Years Used Date Smoking Tobacco: Never Assessed Comments Unknown Sex and Gender Information Value Date Recorded Sex Assigned at Not on file Legal Sex Female 4:40 PM CDT Gender Identity Not on file Sexual Orientation Not on file documented as of this encounter Miscellaneous Notes * Cerner Conversion Note - Historical ProviderMD - 02/24/2020 4:12 PM REPAIR WELDER Novel Coronavirus 2019 - - Positive 02/24/2020 15:53 02/24/2020 16:12 (MITCHEL RAWLS PA) Reviewed by Provider, No further action required Test resulted while patient in ED. documented in this encounter Plan of Treatment Not on file documented as of this encounter Visit Diagnoses Not on filedocumented in this encounter Care Teams Noc Engineer Relationship Specialty Start Date End Date Manuel Bingham MD [address] [place] [address] [phone] PCP - General Family Medicine 07/31/24 documented as of this encounter
--- OUTSIDE RECORDS SUMMARY | 2024-10-27 07:29 | XMS_ITS | Encounter Summary ---
Author Organization [employer] ([place], [place], [place], [place]) Address [address] [place] [address] Care Team Providers Care Medical Records Clerk Name Role Phone Manuel Bingham MD Primary Care Provider + Encounter Details Date Type Department Care Team (Late st Contact Info) Description 08/30/2018 Transcribed Document [facility] [place] [facility] [place] [address] ProviderJohn MD [address] [place] [id number] Social History Tobacco Use Types Packs/Day Years Used Date Smoking Tobacco: Never Assessed Comments Unknown Sex and Gender Information Value Date Recorded Sex Assigned at Not on file Legal Sex Female 4:40 PM CDT Gender Identity Not on file Sexual Orientation Not on file documented as of this encounter Miscellaneous Notes * Cerner Conversion Note - John ProviderMD - 08/30/2018 10:01 [place] [address] JESSICA SAWYER :1970 Visit Time:08/30/2018 Your Visit [...] computer, smartphone, or tablet. Just go to [email or web address] to get started. Questions? Call . You [...] symptoms worsen hope you feel better! Where: [facility] [address]ND FLOOR [address] [facility] (1) Follow Up with NO PRIM DR QUINTERO When Within 2 to 3 days Allergies No Known Medication Allergies Immunizations This Visit No Immunizations Found Medications What How Much When Instructions Next Dose acetaminophen (Tylenol Extra Strength 500 mg oral tablet) 1 Tablet(s) Oral Every 6 Hours as needed for for pain Duration: 5 Day(s) Pickup at [facility] methocarbamol (Robaxin 500 mg oral tablet) 2 Tablet(s) Oral Four Times A Day Duration: 7 Day(s) Pickup at [facility] aspirin (aspirin 81 mg oral tablet) 1 Tablet(s) Oral Every Day bisoprolol (bisoprolol 5 mg oral tablet) 0.5 Tablet(s) Oral Every Day bumetanide (Bumex) Every Day conjugated estrogens (Premarin 0.9 mg oral tablet) 1 Tablet(s) Oral Every Day meloxicam (meloxicam 7.5 mg oral tablet) Oral Every Day meloxicam (meloxicam 7.5 mg oral tablet) 1 Tablet(s) Oral Every Day Duration: 7 Day(s) Pickup at [facility] spironolactone (spironolactone 100 mg oral tablet) 1 Tablet(s) Oral Every Day [facility] [facility] [address] [phone] The home medications listed are only as [...] are sitting or lying down. ??? Take xsml-fpp-fjufqcc and prescription medicines only as told by [...] 03/17/2006 Document Revised: 12/04/2016 Document Reviewed: 10/04/2016 [employer] Interactive Patient Education ?? 2019 [employer] Back Exercises If you have pain [...] 04/19/2011 Document Revised: 10/22/2017 Document Reviewed: 05/11/2015 [employer] Interactive Patient Education ?? 2019 [employer]. Emergency Awareness and Preventative Care STROKE is [...] Assistance with quitting is available by contacting 5-049-YUHV-NOW. This is a free resource providing counseling, [...] was given the opportunity to ask questions. Patient/Spooler Operator Name: Patient/Spooler Operator Signature: Relationship to Patient: Clinician/Hospital Spooler Operator Signature: Please Provide a Telephone Number Where You Can Be Reached: Is it Permissible To Leave a Message? Date: documented in this encounter Plan of Treatment Not on file documented as of this encounter Visit Diagnoses Not on filedocumented in this encounter Care Teams Medical Records Clerk Relationship Specialty Start Date End Date Manuel Bingham MD [address] [place] [address] PCP - General Family Medicine 07/31/24 documented as of this encounter
--- OUTSIDE RECORDS SUMMARY | 2024-10-27 07:29 | XMS_ITS | Encounter Summary ---
Author Organization [employer] ([place], [place], [place], [place]) Address [address] [place] [address] Care Team Providers Care Medical Research Tech Name Role Phone Manuel Bingham MD Primary Care Provider + Encounter Details Date Type Department Care Team (Late st Contact Info) Description 02/24/2020 Transcribed Document [facility] [place] [address] [place] [address] ProviderJohn MD [address], [place] [id number] Social History Tobacco Use Types Packs/Day Years Used Date Smoking Tobacco: Never Assessed Comments Unknown Sex and Gender Information Value Date Recorded Sex Assigned at Not on file Legal Sex Female 4:40 PM CDT Gender Identity Not on file Sexual Orientation Not on file documented as of this encounter Miscellaneous Notes * Cerner Conversion Note - Historical ProviderMD - 02/24/2020 2:34 PM REAL ESTATE INVESTOR Broset Violence Assessment Entered On: 02/24/2020 16:22 EST Performed On: 02/24/2020 16:22 EST by LIS VASQUEZ RN Broset Violence Assessment Broset Violence Checklist of Symptoms : None Broset Violence Symptoms Subtotal : 0 Broset Violence Symptoms Indicator : Low risk (0) LIS VASQUEZ RN - 02/24/2020 16:22 EST Electronically signed by Sana [facility] Conversion Vocational Training Teacher Cerner at 07/15/2022 8:18 AM CDT documented in this encounter Plan of Treatment Not on file documented as of this encounter Visit Diagnoses Not on filedocumented in this encounter Care Teams Medical Research Tech Relationship Specialty Start Date End Date Manuel Bingham MD [address] [place] [phone] PCP - General Family Medicine 07/31/24 documented as of this encounter
--- OUTSIDE RECORDS SUMMARY | 2024-10-27 07:29 | XMS_ITS | Encounter Summary ---
Author Organization [employer] ([place], [place], [place], [place]) Address [address] [place] [address] Care Team Providers Care Senior Mainframe Developer Name Role Phone Manuel Bingham MD Primary Care Provider +1 Encounter Details Date Type Department Care Team (Late st Contact Info) Description 08/30/2018 Transcribed Document [facility] [place] [address] ProviderJohn MD [address] [place] [address] Social History Tobacco Use Types Packs/Day Years [...] 08/30/2018 22:05 EDT Electronically signed by Sana [facility] Conversion Vessel Welder Cerner at 07/15/2022 8:23 AM CDT documented in this encounter Plan of Treatment Not on file documented as of this encounter Visit Diagnoses Not on filedocumented in this encounter Care Teams Senior Mainframe Developer Relationship Specialty Start Date End Date Manuel Bingham MD [address] [place] [address] PCP - General Family Medicine 07/31/24 documented as of this encounter
--- OUTSIDE RECORDS SUMMARY | 2024-10-27 07:29 | XMS_ITS | Encounter Summary ---
Author Organization [employer] ([place], [place], [place], [place]) Address [address] [place] [address] Care Team Providers Care Sustainable Landscape Architect Name Role Phone Manuel Bingham MD Primary Care Provider + 6 Encounter Details Date Type Department Care Team (Late st Contact Info) Description 03/24/2019 Transcribed Document [facility] [place] [address] [place] [address] ProviderJohn MD [address] [place], [place] [id number] Social History Tobacco Use Types Packs/Day Years Used Date Smoking Tobacco: Never Assessed Comments Unknown Sex and Gender Information Value Date Recorded Sex Assigned at Not on file Legal Sex Female 4:40 PM CDT Gender Identity Not on file Sexual Orientation Not on file documented as of this encounter Miscellaneous Notes * Cerner Conversion Note - Historical ProviderMD - 03/24/2019 2:47 PM ELECTRICAL ENGINEERING TEACHER Patient: JESSICA SAWYER Age: 48 years Sex: Female : 1970 Associated Diagnoses: Chest pain, midsternal Author: PALLAVI LUU, EXTERNAL RELATIONS MANAGER-EMR Basic Information Time seen: Date & time 03/24/2019 14:40:00. History source: Patient. Arrival mode: Private vehicle. History limitation: None. Additional information: Chief Complaint from Nursing Triage Note : Chief Complaint 03/24/2019 14:37 EST Chief Complaint C/O CP X1 HR PLATFORM BEATER, 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 [...] Surgical history: heart cath. Endometrial Ablation. Cholecystectomy; ([id number]). colonoscopy. d&c. right carpal tunnel and right [...] EST Height Source Stated Height Entry Format [place] Height/Length, NEPALESE (ft) 5 ft Height/Length NEPALESE 1 Inch CLINICALHEIGHT 154.94 cm [place] Body Weight 47.45 kg Weight Source, ED Standing scale Weight Entry Format [place] Weight [place] lb 200 lb CLINICALWEIGHT 90.91 kg Body [...] Assessment: ED C-SSRS: ED Clinical Reconciliation: ED supervisor photoengraving: EKG: Saline Lock Insert: Ordered (Dispatched) CBC [...] % 30.3 % Lymph # 1.84 K/uL Piatt % 8.1 % Piatt # 0.49 K/uL Eos % 2.0 % Eos # 0.12 K/uL Baso % 0.8 % Baso # 0.05 K/uL Slide Review No PT 9.8 Second(s) INR 1.0 , Lab results : Lab Results 03/24/2019 16:29 EST Troponin I Ultra <0.015 ng/mL . Radiology results: Radiology Results (Last 48 hours) [id number] -- 03/24/2019 14:29 CR Chest 1 Vw [...] Condition: Stable. Disposition: Medically cleared. Prescriptions: Prescription [facility]: naproxen 500 mg oral tablet (Prescribe): [...] on filedocumented in this encounter Care Teams Sustainable Landscape Architect Relationship Specialty Start Date End Date Manuel Bingham MD [address] [place] [phone] PCP - General Family Medicine 07/31/24 documented as of this encounter
--- OUTSIDE RECORDS SUMMARY | 2024-10-27 07:29 | XMS_ITS | Encounter Summary ---
Author Organization [employer] ([place], [place], [place], [place]) Address [address] [place] [address] Care Team Providers Care Spool Cleaner Name Role Phone Manuel Bingham MD Primary Care Provider [phone] Encounter Details Date Type Department Care Team (Late st Contact Info) Description 07/19/2018 Transcribed Document [facility] [place] [address] [place] [address] ProviderJohn MD [address] [place] [address] Social History Tobacco Use Types Packs/Day Years [...] 07/19/2018 8:58 PM CDT Electronically signed by [facility] Conversion Manager Bar Cerner at 07/15/2022 8:08 AM CDT documented in this encounter Plan of Treatment Not on file documented as of this encounter Visit Diagnoses Not on filedocumented in this encounter Care Teams Spool Cleaner Relationship Specialty Start Date End Date Manuel Bingham MD [address] [place] [address] PCP - General Family Medicine 07/31/24 documented as of this encounter
--- OUTSIDE RECORDS SUMMARY | 2024-10-27 07:29 | XMS_ITS | Encounter Summary ---
Author Organization [employer] ([place], [place], [place], [place]) Address [address] [place] [address] Care Team Providers Care Insurance Administrative Assistant Name Role Phone Manuel Bingham MD Primary Care Provider + Encounter Details Date Type Department Care Team (Late st Contact Info) Description 07/19/2018 Transcribed Document [facility] [place] [address] [place] [address] ProviderJohn MD [address] [place] [address] Social History Tobacco Use Types Packs/Day Years [...] EDT DCP GENERIC CODE Tracking Group : [facility] Tracking Acuity : 4 - Non [...] 07/19/2018 19:33:47 EDT) Problems(Active) Anxiety (SNOMED CT :85965680 ) Name of Problem: Anxiety ; Recorder: Pearl Espino Rn; Confirmation: Confirmed ; Classification: Medical ; Code: [id number] ; Contributor System: Must See [place] ; Last Updated: 12/19/2016 10:22 EDT ; Life Cycle Date: 12/22/2015 ; Life Cycle Status: Active ; Vocabulary: SNOMED CT Endometriosis (SNOMED CT :4172110798 ) Name of Problem: Endometriosis ; Recorder: Pearl Espino Rn; Confirmation: Confirmed ; Classification: Medical ; Code: [id number] ; Contributor System: [employer] ; Last Updated: 12/22/2015 6:56 EDT ; Life Cycle Date: 12/22/2015 ; Life Cycle Status: Active ; Vocabulary: SNOMED CT HTN (SNOMED CT :9132731012 ) Name of Problem: HTN ; Recorder: Pearl Espino Rn; Confirmation: Confirmed ; Classification: Medical ; Code: [id number] ; Contributor System: Must See [place] ; Last Updated: 09/30/2016 16:39 EDT ; Life Cycle Date: 12/22/2015 ; Life Cycle Status: Active ; Vocabulary: SNOMED CT S/P hysterectomy (SNOMED CT :630918510 ) Name of Problem: S/P hysterectomy ; Recorder: BELIA VELÁZQUEZ RN; Confirmation: Confirmed ; Classification: Medical ; Code: [id number] ; Contributor System: Must See [place] ; Last Updated: 07/19/2018 19:29 EDT ; Life Cycle Date: 07/19/2018 ; Life Cycle Status: Active ; Vocabulary: SNOMED CT Diagnoses(Active) Back pain Date: 07/19/2018 ; Diagnosis Type: Reason For Visit ; Confirmation: Complaint of ; Clinical Dx: Back pain ; Classification: Medical ; Clinical Service: Emergency medicine ; Code: PNED ; Probability: 0 ; Diagnosis Code: [id number] ED Height and Weight Height Source : Measured Height Entry Format : [place] Height, Feet : 5 ft(Converted to: 152 cm, 60 Inch) Height, Inches : 0 Inch(Converted to: 0 ft 0 Inch, 0.00 cm) Clinical Height : 152.4 cm Weight Source, ED : Standing scale Weight Entry Format : [place] Weight, Pounds : 191 lb Clinical Dosing Weight : 86.82 kg Body Surface Area (BSA) : 1.83 m2 Body Mass Index : 37.4 kg/m2 (HI) [place] Body Weight (IBW) : 45.16 kg BELIA [...] 07/19/2018 19:28 EDT Electronically signed by Sana [facility] Conversion Sash Assembler Cerner at 07/15/2022 8:06 AM CDT documented in this encounter Plan of Treatment Not on file documented as of this encounter Visit Diagnoses Not on filedocumented in this encounter Care Teams Insurance Administrative Assistant Relationship Specialty Start Date End Date Manuel Bingham MD [address] [place] [phone] PCP - General Family Medicine 07/31/24 documented as of this encounter
--- OUTSIDE RECORDS SUMMARY | 2024-10-27 07:29 | XMS_ITS | Encounter Summary ---
Author Organization [employer] ([place], [place], [place], [place]) Address [address] [place] [address] Care Team Providers Care Laborer Cook House Name Role Phone Manuel Bingham MD Primary Care Provider + Encounter Details Date Type Department Care Team (Late st Contact Info) Description 02/27/2020 Transcribed Document [facility] [place] [address] [place] [address] ProviderJohn MD [address] [place] [address] Social History Tobacco Use Types Packs/Day Years Used Date Smoking Tobacco: Never Assessed Comments Unknown Sex and Gender Information Value Date Recorded Sex Assigned at Not on file Legal Sex Female 4:40 PM CDT Gender Identity Not on file Sexual Orientation Not on file documented as of this encounter Miscellaneous Notes * Cerner Conversion Note - Historical ProviderMD - 02/27/2020 9:22 PM TRIMMER AND REINFORCER [place] Suicide Severity Rating Scale (C-SSRS) Entered On: 02/28/2020 2:53 EST Performed On: 02/27/2020 21:30 EST by Raman Peterson, Rn [place] Suicide Severity Rating Scale (C-SSRS) CSSRS Past Month Wish to be : No CSSRS Past Month Suicidal Thoughts : No CSSRS Lifetime Suicide Behavior : No Suicide Severity Rating Score : 0 Suicide Severity Rating : No Additional Care Required at this time Raman Peterson, Rn - 02/28/2020 2:43 EST Electronically signed by Sana [facility] Conversion Odd Job Worker Cerner at 07/15/2022 8:06 AM CDT documented in this encounter Plan of Treatment Not on file documented as of this encounter Visit Diagnoses Not on filedocumented in this encounter Care Teams Laborer Cook House Relationship Specialty Start Date End Date Manuel Bingham MD [address] [place] [address] PCP - General Family Medicine 07/31/24 documented as of this encounter
--- OUTSIDE RECORDS SUMMARY | 2024-10-27 07:29 | XMS_ITS | Encounter Summary ---
Author Organization [employer] ([place], [place], [place], [place]) Address [address] [place] [address] Care Team Providers Care Chemical Pathologist Name Role Phone Manuel Bingham MD Primary Care Provider + Encounter Details Date Type Department Care Team (Late st Contact Info) Description 02/24/2020 Transcribed Document [facility] [place] [address] [place] [address] ProviderJohn MD [address] [place] [address] Social History Tobacco Use Types [...] - Historical ProviderMD - 02/24/2020 4:19 [place] [address] JESSICA SAWYER :1970 Visit Time:02/24/2020 Your Visit [...] symptoms. This may include rest, fluids, and vinf-ohi-ateytce medicines. Follow these instructions at home: Lifestyle [...] safe for you. General instructions ??? Take lhpu-fnt-hnvcdtj and prescription medicines only as told by [...] are not available, use an alcohol-based hand pear picker. ? Avoid touching your mouth, face, eyes, [...] water are not available, use alcohol-based hand pear picker. ??? Stay away from other members of [...] 04/22/2019 Document Revised: 07/13/2019 Document Reviewed: 04/22/2019 [employer] Patient Education ?? 2020 [employer]. COVID-19 Convalescent Plasma: Donate To Save Lives [...] Assistance with quitting is available by contacting 3-723-UABXNOW. This is a free resource providing counseling, support, and referral. Or you may contact your personal physician. [employer] Suicide Prevention Lifeline: The National Suicide Prevention [...] was given the opportunity to ask questions. Patient/Tying In Machine Operator Name: Patient/Tying In Machine Operator Signature: Relationship to Patient: Clinician/Hospital Tying In Machine Operator Signature: Please Provide a Telephone Number Where You Can Be Reached: Is it Permissible To Leave a Message? Date: Electronically signed by Sana, [facility] Conversion Soil Specialist Cerner at 07/15/2022 8:28 AM CDT documented in this encounter Plan of Treatment Not on file documented as of this encounter Visit Diagnoses Not on filedocumented in this encounter Care Teams Chemical Pathologist Relationship Specialty Start Date End Date Manuel Bingham MD [address] [place] [address] PCP - General Family Medicine 07/31/24 documented as of this encounter
--- OUTSIDE RECORDS SUMMARY | 2024-10-27 07:29 | XMS_ITS | Encounter Summary ---
Author Organization [employer] ([place], [place], [place], [place]) Address [address] [place] [address] Care Team Providers Care Seo Intern Name Role Phone Manuel Bingham MD Primary Care Provider + Encounter Details Date Type Department Care Team (Late st Contact Info) Description 02/27/2020 Transcribed Document [facility] [place] [address] [place] [address] ProviderJohn MD [address] [place] [address] Social History Tobacco Use Types Packs/Day Years Used Date Smoking Tobacco: Never Assessed Comments Unknown Sex and Gender Information Value Date Recorded Sex Assigned at Not on file Legal Sex Female 4:40 PM CDT Gender Identity Not on file Sexual Orientation Not on file documented as of this encounter Miscellaneous Notes * Cerner Conversion Note - Historical ProviderMD - 02/27/2020 9:22 PM CERTIFIED CODING SPECIALIST ED Assessment Entered On: 02/28/2020 2:52 EST Performed On: 02/27/2020 21:30 EST by Raman Peterson, acid wash operator Quick Look Assessment Level of Consciousness : Alert, Awake Affect/Behavior : Appropriate, Calm, Cooperative Orientation : Oriented x 4 Skin Temperature : Warm Skin Description : Normal for ethnicity Raman Peterson, Rn - 02/28/2020 2:43 EST ED General-Functional Assess Preferred Communication Mode : Verbal Communication Barrier : None Primary Language : Eritrean Any Spiritual/Cultural Needs or Requests : No [...] Electronically signed by Sana [facility] Conversion Slackline Operator Cerner at 07/15/2022 8:22 AM CDT documented in this encounter Plan of Treatment Not on file documented as of this encounter Visit Diagnoses Not on filedocumented in this encounter Care Teams Seo Intern Relationship Specialty Start Date End Date Manuel Bingham MD [address] [place] [address] PCP - General Family Medicine 07/31/24 documented as of this encounter
--- OUTSIDE RECORDS SUMMARY | 2024-10-27 07:29 | XMS_ITS | Encounter Summary ---
Author Organization [employer] ([place], [place], [place], [place]) Address [address] [place] [address] Care Team Providers Care Traction Power Engineer Name Role Phone Manuel Bingham MD Primary Care Provider [phone] Encounter Details Date Type Department Care Team (Late st Contact Info) Description 03/24/2019 Transcribed Document [facility] [place] Family Medicine [address] [place] [address] ProviderJohn MD [address] [place], [place] [address] Social History Tobacco Use Types Packs/Day Years Used Date Smoking Tobacco: Never Assessed Comments Unknown Sex and Gender Information Value Date Recorded Sex Assigned at Not on file Legal Sex Female 4:40 PM CDT Gender Identity Not on file Sexual Orientation Not on file documented as of this encounter Miscellaneous Notes * Cerner Conversion Note - Historical ProviderMD - 03/24/2019 2:29 PM MANAGER QUALITY ED Assessment Entered On: 03/24/2019 15:23 EST [...] Communication Barrier : None Primary Language : Bolivian Any Spiritual/Cultural Needs or Requests : No [...] Symptoms : None Nail Bed Color : [place] Chest Pain : No LAZARO KHALIL RN-Resource [...] on filedocumented in this encounter Care Teams Traction Power Engineer Relationship Specialty Start Date End Date Manuel Bingham MD [address] [place] [address] PCP - General Family Medicine 07/31/24 documented as of this encounter
--- OUTSIDE RECORDS SUMMARY | 2024-10-27 07:29 | XMS_ITS | Encounter Summary ---
Author Organization [employer] ([place], [place], [place], [place]) Address [address] [place] [address] Care Team Providers Care Hardware Installation Coordinator Name Role Phone Manuel Bingham MD Primary Care Provider + Encounter Details Date Type Department Care Team (Late st Contact Info) Description 07/19/2018 Transcribed Document [facility] [place] [facility] [place] [address] ProviderJohn MD [address] [place] [address] Social History Tobacco Use Types Packs/Day [...] Frank MD - 07/19/2018 9:07 [place] [address] JESSICA SAWYER :1970 Visit Time:07/19/2018 Your Visit Summary Your Care Team Admitting Physician - SAMUEL DONOHUE MD-EMR Attending Physician - SAMUEL DONOHUE MD-EMR Primary Care Physician - GINA EVANGELISTA MD-OBG INGRID, NO DR Referring Physician - INGRID, SELF REFERRED Your Diagnosis Back pain Lumbar back pain Patient Portal Reminder: Be sure to sign up for the [employer] patient portal, which gives you 21/10 access to your medical information ??? including these discharge instructions ??? using your computer, smartphone, or tablet. Just go to [email or web address] to get started. Questions? Call . You [...] REPORT YOUR PAIN IS WORSE Where: [address] [facility] [facility] [address] [place] [address] [facility] (1) Follow Up with NO PRIM DR QUINTERO When Within 2 to 3 days Allergies No Known Medication Allergies Immunizations This Visit No Immunizations Found Medications What How Much When Instructions Next Dose New acetaminophen-hydrocodone ([place] 5 mg-325 mg oral tablet) 1 Tablet(s) [...] and flexible. ??? Do notsit, drive, or corporate sales trainer one place for more than 30 minutes. [...] Assistance with quitting is available by contacting 3-880-MYLTNOW. This is a free resource providing counseling, support, and referral. Or you may contact your personal physician. [place] Suicide Prevention Lifeline: The National Suicide Prevention [...] was given the opportunity to ask questions. Patient/Regulatory Manager Name: Patient/Regulatory Manager Signature: Relationship to Patient: Clinician/Hospital Regulatory Manager Signature: Please Provide a Telephone Number Where You Can Be Reached: Is it Permissible To Leave a Message? Date: Electronically signed by Interface, [facility] Conversion Tanning Drum Operator Cerner at 07/15/2022 8:30 AM CDT documented in this encounter Plan of Treatment Not on file documented as of this encounter Visit Diagnoses Not on filedocumented in this encounter Care Teams Hardware Installation Coordinator Relationship Specialty Start Date End Date Manuel Bingham MD [address] [place] [address] PCP - General Family Medicine 07/31/24 documented as of this encounter
--- OUTSIDE RECORDS SUMMARY | 2024-10-27 07:29 | XMS_ITS | Encounter Summary ---
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
--- OUTSIDE RECORDS SUMMARY | 2024-10-27 07:29 | XMS_ITS | Encounter Summary ---
Author Organization [employer] ([place], [place], [place], [place]) Address [address] [place] [address] Care Team Providers Care Adjunct English Instructor Name Role Phone Manuel Bingham MD Primary Care Provider [phone] Encounter Details Date Type Department Care Team (Late st Contact Info) Description 08/30/2018 Transcribed Document [facility] [place] Family Medicine [address] [place] [address] ProviderJohn MD [address] [place] [address] Social History Tobacco Use Types Packs/Day Years [...] 08/30/2018 9:58 PM CDT Electronically signed by [facility] Conversion Gear And Spline Grinder Cerner at 07/15/2022 8:11 AM CDT documented in this encounter Plan of Treatment Not on file documented as of this encounter Visit Diagnoses Not on filedocumented in this encounter Care Teams Adjunct English Instructor Relationship Specialty Start Date End Date Manuel Bingham MD [address] [place] [address] PCP - General Family Medicine 07/31/24 documented as of this encounter
--- OUTSIDE RECORDS SUMMARY | 2024-10-27 07:29 | XMS_ITS | Encounter Summary ---
Author Organization [facility] Address [address] [place] [address] Care Team Providers Care Gis Programmer Name Role Phone Arben Rao MD Primary Care Provider [phone] Adeola Camara MD Unavailable Reason for Referral * Consultation (Routine) - Closed Specialty Diagnoses / Procedures Referred By Contac t Referred To Contact Neurosurgery Diagnoses Abnormal MRI, spine Arben Rao MD [address] [place] [address] Phone: tel: fax: Referral ID Status Reason Start Date Expiration Date V isits Requested Visits Authorized [id number] Closed Specialty Services Required 08/20/2021 02/19/2023 1 1 Encounter Details Date Type Department Care Team (Late st Contact Info) Description 08/20/2021 Community [facility] Community [facility] [address] [place] [address] Arben Rao MD [address] [phone] Abnormal MRI, spine (Primary Dx) Social History [...] Primary documented in this encounter Care Teams Gis Programmer Relationship Specialty Start Date End Date Arben Rao MD [address] [place] [address] PCP - General 09/04/21 Adeola Camara MD [address] [place] [address] Surgeon Neurosurgery 09/04/21 documented as of this encounter
--- OUTSIDE RECORDS SUMMARY | 2024-10-27 07:29 | XMS_ITS | Encounter Summary ---
Author Organization [employer] ([place], [place], [place], [place]) Address [address] [place] [address] Care Team Providers Care Regional Transportation Manager Name Role Phone Manuel Bingham MD Primary Care Provider + Encounter Details Date Type Department Care Team (Late st Contact Info) Description 02/27/2020 Transcribed Document [facility] [place] [address] [place] [address] ProviderJohn MD [address] [place] [address] Social History Tobacco Use Types Packs/Day Years Used Date Smoking Tobacco: Never Assessed Comments Unknown Sex and Gender Information Value Date Recorded Sex Assigned at Not on file Legal Sex Female 4:40 PM CDT Gender Identity Not on file Sexual Orientation Not on file documented as of this encounter Miscellaneous Notes * Cerner Conversion Note - Historical ProviderMD - 02/27/2020 10:59 PM PROFESSOR OF FLORICULTURE ED Event Note Entered On: 02/27/2020 23:02 EST Performed On: 02/27/2020 22:59 EST by Umberto Higgins Mail Handler ED Event Note ED Event Date/Time : [...] was notifed of the results. Umberto Higgins Mail Handler - 02/27/2020 22:59 EST Electronically signed by Sana [facility] Conversion Manufacturing Scheduler Cerner at 07/15/2022 8:21 AM CDT documented in this encounter Plan of Treatment Not on file documented as of this encounter Visit Diagnoses Not on filedocumented in this encounter Care Teams Regional Transportation Manager Relationship Specialty Start Date End Date Manuel Bingham MD [address] [place] [address] PCP - General Family Medicine 07/31/24 documented as of this encounter
--- OUTSIDE RECORDS SUMMARY | 2024-10-27 07:29 | XMS_ITS | Encounter Summary ---
Author Organization [employer] ([place], [place], [place], [place]) Address [address] [place] [address] Care Team Providers Care University Lecturer Name Role Phone Manuel Bingham MD Primary Care Provider + [phone] Encounter Details Date Type Department Care Team (Late st Contact Info) Description 11/30/2019 Transcribed Document [facility] Radiology [address] [place] [address] Devyn Gross MD [address] [place] [address] Dept. of Emergency [place] [address] Social History Tobacco Use Types [...] 11/30/2019 4:37 AM EDT Electronically signed by [facility] Conversion Band Head Saw Operator Cerner at 07/15/2022 8:13 AM CDT documented in this encounter Plan of Treatment Not on file documented as of this encounter Visit Diagnoses Not on filedocumented in this encounter Care Teams University Lecturer Relationship Specialty Start Date End Date Manuel Bingham MD [address] [place] [phone] PCP - General Family Medicine 07/31/24 documented as of this encounter
--- OUTSIDE RECORDS SUMMARY | 2024-10-27 07:29 | XMS_ITS | Encounter Summary ---
Author Organization [employer] ([place], [place], [place], [place]) Address [address] [place] [address] Care Team Providers Care Host And Hostess Name Role Phone Manuel Bingham MD Primary Care Provider + Encounter Details Date Type Department Care Team (Late st Contact Info) Description 03/24/2019 Transcribed Document [facility] [place] Family Medicine [address] [place] [address] ProviderJohn MD [address] [place] [address] Social History Tobacco Use Types [...] - John ProviderMD - 03/24/2019 5:07 [place] [address] JESSICA SAWYER :1970 Visit Time:03/24/2019 Your Visit [...] for as needed for pain Pickup at [facility]/pharmacy #[id number] Pharmacy Information [facility]/pharmacy #[id number]: [address], [place] [phone] The home medications listed are only as [...] range between ( 1.0 and 7.0 ) [place] #: 0.49 K/uL -- Normal range between ( 0.24 and 0.82 ) [place] #: 0.12 K/uL -- Normal range between ( 0.04 and 0.54 ) [place] %: 8.1 % -- Normal range between [...] you start to feel better. ??? Take zfcl-lxb-cmsicma and prescription medicines only as told by [...] 12/25/2005 Document Revised: 12/09/2016 Document Reviewed: 12/09/2016 [employer] Interactive Patient Education ?? 2019 Dianxin. Emergency Awareness and Preventative Care STROKE is [...] Assistance with quitting is available by contacting 8-799-NZXONOW. This is a free resource providing counseling, [...] was given the opportunity to ask questions. Patient/Job Lithographer Name: Patient/Job Lithographer Signature: Relationship to Patient: Clinician/Hospital Job Lithographer Signature: Please Provide a Telephone Number Where You Can Be Reached: Is it Permissible To Leave a Message? Date: documented in this encounter Plan of Treatment Not on file documented as of this encounter Visit Diagnoses Not on filedocumented in this encounter Care Teams Host And Hostess Relationship Specialty Start Date End Date Manuel Bingham MD [address] [place] [address] PCP - General Family Medicine 07/31/24 documented as of this encounter
--- OUTSIDE RECORDS SUMMARY | 2024-10-27 07:29 | XMS_ITS | Encounter Summary ---
Author Organization [employer] ([place], [place], [place], [place]) Address [address] [place] [address] Care Team Providers Care Thrill Performer Name Role Phone Manuel Bingham MD Primary Care Provider +1 Encounter Details Date Type Department Care Team (Late st Contact Info) Description 02/28/2020 Transcribed Document [facility] [place] [address] [place] [address] ProviderJohn MD [address] [place] [address] Social History Tobacco Use Types Packs/Day Years Used Date Smoking Tobacco: Never Assessed Comments Unknown Sex and Gender Information Value Date Recorded Sex Assigned at Not on file Legal Sex Female 4:40 PM CDT Gender Identity Not on file Sexual Orientation Not on file documented as of this encounter Miscellaneous Notes * Cerner Conversion Note - John ProviderMD - 02/28/2020 4:31 AM STOCK RANCH SUPERVISOR documented in this encounter Plan of Treatment Not on file documented as of this encounter Visit Diagnoses Not on filedocumented in this encounter Care Teams Thrill Performer Relationship Specialty Start Date End Date Manuel Bingham MD [address] [place] [address] PCP - General Family Medicine 07/31/24 documented as of this encounter
--- OUTSIDE RECORDS SUMMARY | 2024-10-27 07:29 | XMS_ITS | Encounter Summary ---
Author Organization [employer] ([place], [place], [place], [place]) Address [address] [place] [address] Care Team Providers Care Bellows Filler Name Role Phone Manuel Bingham MD Primary Care Provider + Encounter Details Date Type Department Care Team (Late st Contact Info) Description 02/24/2020 Transcribed Document [facility] [place] Family Medicine [address] [place] [address] ProviderJohn MD [address] [place] [address] Social History Tobacco Use Types Packs/Day Years Used Date Smoking Tobacco: Never Assessed Comments Unknown Sex and Gender Information Value Date Recorded Sex Assigned at Not on file Legal Sex Female 4:40 PM CDT Gender Identity Not on file Sexual Orientation Not on file documented as of this encounter Miscellaneous Notes * Cerner Conversion Note - John ProviderMD - 02/24/2020 4:21 PM QUARANTINE INSPECTOR ED Discharge Entered On: 02/24/2020 16:22 EST [...] on filedocumented in this encounter Care Teams Bellows Filler Relationship Specialty Start Date End Date Manuel Bingham MD [address] [place] [address] PCP - General Family Medicine 07/31/24 documented as of this encounter
--- OUTSIDE RECORDS SUMMARY | 2024-10-27 07:29 | XMS_ITS | Encounter Summary ---
Author Organization [employer] ([place], [place], [place], [place]) Address [address] [place] [address] Care Team Providers Care Shell Press Operator Name Role Phone Manuel Bingham MD Primary Care Provider + Encounter Details Date Type Department Care Team (Late st Contact Info) Description 03/24/2019 Transcribed Document [facility] [place] [address] [place] [address] ProviderJohn MD [address] [place], [place] [address] Social History Tobacco Use Types Packs/Day Years Used Date Smoking Tobacco: Never Assessed Comments Unknown Sex and Gender Information Value Date Recorded Sex Assigned at Not on file Legal Sex Female 4:40 PM CDT Gender Identity Not on file Sexual Orientation Not on file documented as of this encounter Miscellaneous Notes * Cerner Conversion Note - Historical ProviderMD - 03/24/2019 2:29 PM WEBBING TACKER ED Triage Entered On: 03/24/2019 14:39 EST Performed On: 03/24/2019 14:37 EST by DALE FUENTES RN ED Triage Across the Room Chief Complaint : C/O CP X1 HR 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 CP STARTED AT REST, + SOA Triage Date/Time : 03/24/2019 14:37 EST DALE FUENTES RN - 03/24/2019 14:37 EST DCP GENERIC CODE Tracking Acuity : 2 - Emergent Tracking Group : [facility] ED [place] DALE FUENTES RN [...] 03/24/2019 14:39:04 EST) Problems(Active) Anxiety (SNOMED CT :86076570 ) Name of Problem: Anxiety ; Recorder: Pearl Espino RN; Confirmation: Confirmed ; Classification: Medical ; Code: [id number] ; Contributor System: [employer] ; Last Updated: 12/19/2016 10:22 EDT ; Life Cycle Date: 12/22/2015 ; Life Cycle Status: Active ; Vocabulary: SNOMED CT Endometriosis (SNOMED CT :1992907345 ) Name of Problem: Endometriosis ; Recorder: Pearl Espino RN; Confirmation: Confirmed ; Classification: Medical ; Code: [id number] ; Contributor System: [employer] ; Last Updated: 12/22/2015 6:56 EDT ; Life Cycle Date: 12/22/2015 ; Life Cycle Status: Active ; Vocabulary: SNOMED CT HTN (SNOMED CT :4228705551 ) Name of Problem: HTN ; Recorder: Pearl Espino RN; Confirmation: Confirmed ; Classification: Medical ; Code: [id number] ; Contributor System: [employer] ; Last Updated: 09/30/2016 16:39 EDT ; Life Cycle Date: 12/22/2015 ; Life Cycle Status: Active ; Vocabulary: SNOMED CT S/P hysterectomy (SNOMED CT :574512023 ) Name of Problem: S/P hysterectomy ; Recorder: BELIA VELÁZQUEZ RN; Confirmation: Confirmed ; Classification: Medical ; Code: [id number] ; Contributor System: [employer] ; Last Updated: 07/19/2018 19:29 EDT ; Life Cycle Date: 07/19/2018 ; Life Cycle Status: Active ; Vocabulary: SNOMED CT Diagnoses(Active) Chest pain Date: 03/24/2019 ; Diagnosis Type: Reason For Visit ; Confirmation: Complaint of ; Clinical Dx: Chest pain ; Classification: Medical ; Clinical Service: Emergency medicine ; Code: PNED ; Probability: 0 ; Diagnosis Code: [id number] ED Height and Weight Height Source : Stated Height Entry Format : [place] Height, Feet : 5 ft(Converted to: 152 cm, 60 Inch) Height, Inches : 1 Inch(Converted to: 0 ft 1 Inch, 2.54 cm) Clinical Height : 154.94 cm Weight Source, ED : Standing scale Weight Entry Format : [place] Weight, Pounds : 200 lb Clinical Dosing Weight : 90.91 kg Body Surface Area (BSA) : 1.89 m2 Body Mass Index : 37.9 kg/m2 (HI) [place] Body Weight (IBW) : 47.45 kg DALE FUENTES RN - 03/24/2019 14:37 EST Electronically signed by Sana [facility] Conversion Bakery Worker Conveyor Line Cerner at 07/15/2022 8:10 AM CDT documented in this encounter Plan of Treatment Not on file documented as of this encounter Visit Diagnoses Not on filedocumented in this encounter Care Teams Shell Press Operator Relationship Specialty Start Date End Date Manule Bingham MD [address] [place] [address] PCP - General Family Medicine 07/31/24 documented as of this encounter
--- OUTSIDE RECORDS SUMMARY | 2024-10-27 07:29 | XMS_ITS | Encounter Summary ---
Author Organization [employer] ([place], [place], [place], [place]) [place] [address] Care Team Providers Care Geological Survey Field Assistant Name Role Phone Manuel Bingham MD Primary Care Provider + Encounter Details Date Type Department Care Team (Late st Contact Info) Description 08/31/2018 Transcribed Document [facility] [place] Family Medicine [address] [place] [address] ProviderJohn MD [address] [place] [address] Social History Tobacco Use Types Packs/Day Years [...] Reviewed by Provider, No further action required [id number] documented in this encounter Plan of Treatment Not on file documented as of this encounter Visit Diagnoses Not on filedocumented in this encounter Care Teams Geological Survey Field Assistant Relationship Specialty Start Date End Date Manuel Bingham MD [address] [place] [address] PCP - General Family Medicine 07/31/24 documented as of this encounter
--- OUTSIDE RECORDS SUMMARY | 2024-10-27 07:29 | XMS_ITS | Encounter Summary ---
Author Organization [employer] ([place], [place], [place], [place]) Address [address] [place] [address] Care Team Providers Care Licensing Representative Name Role Phone Manuel Bingham MD Primary Care Provider + [phone] Encounter Details Date Type Department Care Team (Late st Contact Info) Description 08/30/2018 Transcribed Document [facility] [place] [address] ProviderJohn MD [address] [place] [address] Social History Tobacco Use Types Packs/Day Years [...] Surgical history: heart cath. Endometrial Ablation. Cholecystectomy; (50703). colonoscopy. d&c. right carpal tunnel and right [...] EDT Height Source Stated Height Entry Format [place] Height/Length, POLISH (ft) 5 ft Height/Length POLISH 0 Inch CLINICALHEIGHT 152.4 cm [place] Body Weight 45.16 kg Weight Source, ED Standing scale Weight Entry Format [place] Weight Colombian lb 190 lb CLINICALWEIGHT 86.36 kg Body Surface Area (BSA) 1.83 m2 Body Mass Index 37.2 kg/m2 HI . Oxygen Saturation 08/30/2018 20:13 EDT Oxygen Saturation 96 % . General: Alert, no acute distress. [place] coma scale: Total score: Total score: 15. [...] knee left w crutches Splint Location: Applioed by:seed trucker Supervised by: Patient is neurovascularly intact status [...] Medical Plan Condition: Improved, Stable. Prescriptions: Prescription Book Reviewer Pharmacy: meloxicam 7.5 mg oral tablet (Prescribe): [...] given the following educational materials: Back Exercises, Dwcl-fl-Jlrg, Knee Sprain, Adult. Follow up with: [facility] [...] diagnostic results, Regarding treatment plan, Regarding prescription. documented in this encounter Plan of Treatment Not on file documented as of this encounter Visit Diagnoses Not on filedocumented in this encounter Care Teams Licensing Representative Relationship Specialty Start Date End Date Manuel Bingham MD [address] [place] [address] PCP - General Family Medicine 07/31/24 documented as of this encounter
--- OUTSIDE RECORDS SUMMARY | 2024-10-27 07:29 | XMS_ITS | Encounter Summary ---
Author Organization [employer] ([place], [place], [place], [place]) Address [address] [address] Care Team Providers Care Conference Planning Manager Name Role Phone Manuel Bingham MD Primary Care Provider + Encounter Details Date Type Department Care Team (Late st Contact Info) Description 07/19/2018 Transcribed Document [facility] [place] Family Medicine [facility] [place] [address] ProviderJohn MD [address] [place] [address] Social History Tobacco Use Types Packs/Day Years [...] SHE HAS BEEN HAVING SINCE FALL AT [facility] ON 06/02/2018 IS GETTING WORSE. SHE [...] Surgical history: heart cath. Endometrial Ablation. Cholecystectomy; (96785). colonoscopy. d&c. right carpal tunnel and right [...] Radiology results: Radiology Results (Last 48 hours) [id number] -- 07/19/2018 19:12 CT Spine Lumbar WO [...] 20:56 EDT, Discharge to: Home. Prescriptions: Prescription Table Setter Pharmacy: cyclobenzaprine 10 mg oral tablet (Prescribe): 1 Tab, Oral, TID, for 10 Day(s), PRN: as needed for spasm, 30 Tab, 0 Refill(s) [place] 5 mg-325 mg oral tablet (Prescribe): 1 Tab, Oral, TID, for 2 Day(s), PRN: for pain, 6 Tab, 0 Refill(s), Prescription Table Setter Pharmacy: Lidoderm 5% topical film (Prescribe): 1 [...] the following educational materials: Back Pain, Adult, Vtyo-wz-Ydet, Heat Therapy, Vjvw-kh-Ewld. Limitations: Limited activity. Follow up with: NO PRIM DR QUINTERO Within 2 to 3 days; SHELLY BELLAMY Within 2 to 3 days CALL THIS MD IN THE AM AND REPORT YOUR PAIN IS WORSE . Counseled: Patient, Regarding diagnosis, Regarding diagnostic results, Regarding treatment plan, Regarding prescription, Patient indicated understanding of instructions. Electronically signed by Sana, [facility] Conversion Screen Print Operator Cerner at 07/15/2022 8:13 AM CDT documented in this encounter Plan of Treatment Not on file documented as of this encounter Visit Diagnoses Not on filedocumented in this encounter Care Teams Conference Planning Manager Relationship Specialty Start Date End Date Manuel Bingham MD [address] [place] [address] PCP - General Family Medicine 07/31/24 documented as of this encounter
--- OUTSIDE RECORDS SUMMARY | 2024-10-27 07:29 | XMS_ITS | Clinical Summary ---
Author Organization Healthcare Address [address] [place] [address] Care Team Providers Care Drafter Name Role Phone Arben Rao MD Primary Care Provider [phone] Adeola Camara MD Unavailable Allergies No known [...] Department Care Team Description 09/20/2024 Orders Only [facility] Sleep Disorder [address] [place] [address] Nicki Moeller 09/14/2024 Orders Only [facility] Sleep Disorder [address] [place] [address] Nicki Moeller 09/02/2024 Results Follow-Up [facility] Sleep Disorder [address] [place] [address] Rosita Sutton APRN 08/25/2024 8:15 PM EDT Clinical Support [facility] Sleep Disorder [address] [place] [address] David Gupta Snoring; History of sleep apnea; At risk for central sleep apnea; Excessive daytime sleepiness; Severe obesity (BMI >= 40) (CMS/HCC) 08/25/2024 Outside [facility] [address] [place] [address] Madeleine Mireles MD JANAE (obstructive [...] 2020 [facility]-Zoster Vaccines (1 of 2) 2020 [id number]-87 Vaccine (1 - season) 2023 [facility]-Influenza Vaccine [...] Name Priority Date/Time Associated Diagnosis Comments [facility] ORDER Routine 09/20/2024 10:07 AM EDT ADULT SLEEP STUDY OVERNIGHT POLYSOMNOGRAPHY Routine 08/25/2024 8:49 PM EDT Snoring History of sleep apnea At risk for central sleep apnea Excessive daytime sleepiness Severe obesity (BMI >= 40) ([facility]) from Last 3 Months Results * DME Order (09/20/2024 10:07 AM EDT) [facility] SUPPLIER NAME 0xdata [facility] DME [facility] SUPPLIER PHONE [facility] DELIVERY STATUS Completed [facility] DELIVERY NOTE [facility] REQUESTED DELIVERY DATE 09/20/2024 [facility] ACTUAL DELIVERY DATE 09/20/2024 [facility] D[facility] ITEM DESCRIPTION CPAP Machine, Resmed [facility] Comment: Qty: 1 Auto Min Pressure: 6 cm Auto Max Pressure: 16 cm Oxygen Usage: None [facility] ITEM DESCRIPTION PAP Mask, Fit to Comfort, 1 per 3 months [facility] Comment:Qty: 1 [facility] ITEM DESCRIPTION PAP Headgear, 1 per 6 months [facility] Comment:Qty: 1 [facility] ITEM DESCRIPTION PAP Humidifier, Heated [facility] Comment:Qty: 1 [facility] ITEM DESCRIPTION PAP Mask Interface Cushion, Fit to Comfort (A7031- 1 per month/ A7032- 2 per month/ A7033 - 2 per month) [facility] Comment:Qty: 1 [facility] ITEM DESCRIPTION Disposable PAP Filter, 2 per 1 month [facility] Comment:Qty: 1 [facility] ITEM DESCRIPTION Non-Disposable PAP Filter, 1 per 6 months [facility] Comment:Qty: 1 [facility] ITEM DESCRIPTION PAP Machine Tubing, Non-Heated, 1 per 3 months [facility] Comment:Qty: 1 [facility] ITEM DESCRIPTION PAP Monitoring, Per device availability [facility] Comment:Qty: 1 [facility] ITEM DESCRIPTION Humidifier Water Chamber, 1 per 6 months [facility] Comment:Qty: 1 [facility] ITEM DESCRIPTION PAP Chinstrap, 1 per 6 months [facility] Comment:Qty: 1 09/20/2024 10:0 7 AM EDT Rosita Sutton CRYPTOLOGIC LINGUIST DME ORDERABLES Final R esult [facility] * Adult Sleep Study Overnight Polysomnography (08/25/2024 8:49 PM EDT) 08/25/2024 8:49 PM EDT Narrative [facility] - 09/01/2024 3:57 PM EDT General Information:See Media Viewer for report. This statement produced by Interface. us Rosita Sutton CRYPTOLOGIC LINGUIST SLEEP CENTER ORDERABLES Final Result [facility] from Last 3 Months Insurance [facility] MEDIC[facility] Care Teams Drafter Relationship Specialty Start Date End Date Arben Rao MD [address] [place] [address] PCP - General 09/04/21 Adeola Camara MD [id number] [place] [id number] Surgeon Neurosurgery 09/04/21
--- OUTSIDE RECORDS SUMMARY | 2024-10-27 07:29 | XMS_ITS | Encounter Summary ---
Author Organization [employer] ([place], [place], [place], [place]) Address [address] [place] [address] Care Team Providers Care Adventure Guide Name Role Phone Manuel Bingham MD Primary Care Provider [phone] Encounter Details Date Type Department Care Team (Late st Contact Info) Description 07/19/2018 Transcribed Document [facility] [place] Family Medicine [address] [place] [address] ProviderJohn MD [address] [place] [address] Social History Tobacco Use Types Packs/Day Years [...] Communication Barrier : None Primary Language : Portuguese Any Spiritual/Cultural Needs or Requests : No [...] 07/19/2018 19:39 EDT Electronically signed by Sana [facility] Conversion Cash Posting Representative Cerner at 07/15/2022 8:02 AM CDT documented in this encounter Plan of Treatment Not on file documented as of this encounter Visit Diagnoses Not on filedocumented in this encounter Care Teams Adventure Guide Relationship Specialty Start Date End Date Manuel Bingham MD [address] [place] [address] PCP - General Family Medicine 07/31/24 documented as of this encounter
--- OUTSIDE RECORDS SUMMARY | 2024-10-27 07:29 | XMS_ITS | Encounter Summary ---
Author Organization [employer] ([place], [place], [place], [place]) Address [address] [place] [address] Care Team Providers Care Marketing Consultant Name Role Phone Manuel Bingham MD Primary Care Provider + Encounter Details Date Type Department Care Team (Late st Contact Info) Description 11/30/2019 Transcribed Document [facility] [place] [facility] [place] [address] ProviderJohn MD [address] [place] [address] Social History Tobacco Use Types Packs/Day [...] on filedocumented in this encounter Care Teams Marketing Consultant Relationship Specialty Start Date End Date Manuel Bingham MD [address] [place] [phone] PCP - General Family Medicine 07/31/24 documented as of this encounter
--- OUTSIDE RECORDS SUMMARY | 2024-10-27 07:29 | XMS_ITS | Encounter Summary ---
Author Organization [employer] ([place], [place], [place], [place]) Address [address] [place] [address] Care Team Providers Care Payroll Human Resources Assistant Name Role Phone Manuel Bingham MD Primary Care Provider + Encounter Details Date Type Department Care Team (Late st Contact Info) Description 02/24/2020 Transcribed Document [facility] [place] Family [place] [address] ProviderJohn MD [address] [place] [address] Social History Tobacco Use Types Packs/Day Years Used Date Smoking Tobacco: Never Assessed Comments Unknown Sex and Gender Information Value Date Recorded Sex Assigned at Not on file Legal Sex Female 4:40 PM CDT Gender Identity Not on file Sexual Orientation Not on file documented as of this encounter Miscellaneous Notes * [employer] Conversion Note - Historical ProviderMD - 02/24/2020 2:54 PM SENIOR RECEPTIONIST Patient: JESSICA SAWYER Age: 49 years Sex: Female : 1970 Associated Diagnoses: Clinical diagnosis of COVID-19 Author: PALLAVI LUU, FIELD GAUGER-EMR Basic Information Time seen: Date & time [...] since this morning. 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 Denies soa or chest pain. . [...] Surgical history: heart cath. Endometrial Ablation. Cholecystectomy; (39555). colonoscopy. d&c. right carpal tunnel and right [...] EST Height Source Stated Height Entry Format [place] Height/Length, SENEGALESE (ft) 5 ft Height/Length SENEGALESE 4 Inch CLINICALHEIGHT 162.56 cm [place] Body Weight 54.3 kg Weight Source, ED Critical estimated dosing weight Weight Entry Format [place] Weight Cameroonian lb 190 lb CLINICALWEIGHT 86.36 kg Body [...] on filedocumented in this encounter Care Teams Payroll Human Resources Assistant Relationship Specialty Start Date End Date Manuel Bingham MD [address] [place] [address] PCP - General Family Medicine 07/31/24 documented as of this encounter
--- OUTSIDE RECORDS SUMMARY | 2024-10-27 07:29 | XMS_ITS | Encounter Summary ---
Author Organization Healthcare Address [address] [place] [address] Care Team Providers Care Instruction Librarian Name Role Phone Arben Rao MD Primary Care Provider + [phone] Adeola Camara MD Unavailable Encounter Details Date Type Department Care Team (Latest Contact Info) Description 08/25/2024 Outside Procedure [facility] [address] [place] [address] Madeleine Mireles MD [address] [facility] [address] [place] [address] JANAE (obstructive sleep apnea) (Primary [...] documented as of this encounter Care Teams Instruction Librarian Relationship Specialty Start Date End Date Arben Rao MD [address] [place] [address] PCP - General 09/04/21 Adeola Camara MD [address] [facility] [address] [place] [address] Surgeon Neurosurgery 09/04/21 documented as of this encounter
--- OUTSIDE RECORDS SUMMARY | 2024-10-27 07:29 | XMS_ITS | Encounter Summary ---
Author Organization [employer] ([place], [place], [place], [place]) Address [address] [place] [address] Care Team Providers Care Food Supervisor Name Role Phone Manuel Bingham MD Primary Care Provider +1 Encounter Details Date Type Department Care Team (Late st Contact Info) Description 08/30/2018 Transcribed Document [facility] [place] Family Medicine [facility] [place] [address] ProviderJohn MD [address] [place] [address] Social History Tobacco Use Types Packs/Day Years [...] Performed On: 08/30/2018 20:13 EDT by CHERIE LNUA RN ED Triage Across the Room Triage Date/Time : 08/30/2018 20:13 EDT Chief Complaint : patient fellon 3/5 and today. patient is having pain in left groin and goes down her leg, and left hip CHERIE LUNA RN - 08/30/2018 20:13 EDT DCP GENERIC CODE Tracking Acuity : 4 - Non - Urgent Tracking Group : [facility] CHERIE LUNA RN - 08/30/2018 [...] 08/30/2018 20:16:40 EDT) Problems(Active) Anxiety (SNOMED CT :40468861 ) Name of Problem: Anxiety ; Recorder: Pearl Espino Rn; Confirmation: Confirmed ; Classification: Medical ; Code: [id number] ; Contributor System: [employer] ; Last Updated: 12/19/2016 10:22 EDT ; Life Cycle Date: 12/22/2015 ; Life Cycle Status: Active ; Vocabulary: SNOMED CT Endometriosis (SNOMED CT :5122338071 ) Name of Problem: Endometriosis ; Recorder: Pearl Espino Rn; Confirmation: Confirmed ; Classification: Medical ; Code: [id number] ; Contributor System: [employer] ; Last Updated: 12/22/2015 6:56 EDT ; Life Cycle Date: 12/22/2015 ; Life Cycle Status: Active ; Vocabulary: SNOMED CT HTN (SNOMED CT :0207076345 ) Name of Problem: HTN ; Recorder: Pearl Espino Rn; Confirmation: Confirmed ; Classification: Medical ; Code: [id number] ; Contributor System: [employer] ; Last Updated: 09/30/2016 16:39 EDT ; Life Cycle Date: 12/22/2015 ; Life Cycle Status: Active ; Vocabulary: SNOMED CT S/P hysterectomy (SNOMED CT :622491163 ) Name of Problem: S/P hysterectomy ; Recorder: BELIA VELÁZQUEZ RN; Confirmation: Confirmed ; Classification: Medical ; Code: [id number] ; Contributor System: [employer] ; Last Updated: 07/19/2018 19:29 EDT ; Life Cycle Date: 07/19/2018 ; Life Cycle Status: Active ; Vocabulary: SNOMED CT Diagnoses(Active) Fall Date: 08/30/2018 ; Diagnosis Type: Reason For Visit ; Confirmation: Complaint of ; Clinical Dx: Fall ; Classification: Medical ; Clinical Service: Emergency medicine ; Code: PNED ; Probability: 0 ; Diagnosis Code: [id number] ED Height and Weight Height Source : Stated Height Entry Format : [place] Height, Feet : 5 ft(Converted to: 152 cm, 60 Inch) Height, Inches : 0 Inch(Converted to: 0 ft 0 Inch, 0.00 cm) Clinical Height : 152.4 cm Weight Source, ED : Standing scale Weight Entry Format : [place] Weight, Pounds : 190 lb Clinical Dosing Weight : 86.36 kg Body Surface Area (BSA) : 1.83 m2 Body Mass Index : 37.2 kg/m2 (HI) [place]oshone Body Weight (IBW) : 45.16 kg CHERIE [...] 08/30/2018 20:13 EDT Electronically signed by Sana, [facility] Conversion Goggles Assembler Cerner at 07/15/2022 8:13 AM CDT documented in this encounter Plan of Treatment Not on file documented as of this encounter Visit Diagnoses Not on filedocumented in this encounter Care Teams Food Supervisor Relationship Specialty Start Date End Date Manuel Bingham MD [address] [place] [address] PCP - General Family Medicine 07/31/24 documented as of this encounter
--- OUTSIDE RECORDS SUMMARY | 2024-10-27 07:29 | XMS_ITS | Encounter Summary ---
Author Organization [employer] ([place], [place], [place], [place]) Address [address] [place] [address] Care Team Providers Care District Loss Prevention Manager Name Role Phone Manuel Bingham MD Primary Care Provider +1 Encounter Details Date Type Department Care Team (Late st Contact Info) Description 02/24/2020 Transcribed Document [facility] [place] [address] [place] [address] ProviderJohn MD [address] [place] [address] Social History Tobacco Use Types Packs/Day Years Used Date Smoking Tobacco: Never Assessed Comments Unknown Sex and Gender Information Value Date Recorded Sex Assigned at Not on file Legal Sex Female 4:40 PM CDT Gender Identity Not on file Sexual Orientation Not on file documented as of this encounter Miscellaneous Notes * [employer]ner Conversion Note - John ProviderMD - 02/24/2020 4:18 PM RESIDENT CARE COORDINATOR Electronically signed by Sana [facility] Conversion Lug Loader Cerner at 07/15/2022 8:28 AM CDT documented in this encounter Plan of Treatment Not on file documented as of this encounter Visit Diagnoses Not on filedocumented in this encounter Care Teams District Loss Prevention Manager Relationship Specialty Start Date End Date Manuel Bingham MD [address] [place] [address] PCP - General Family Medicine 07/31/24 documented as of this encounter
--- OUTSIDE RECORDS SUMMARY | 2024-10-27 07:29 | XMS_ITS | Encounter Summary ---
Author Organization [employer] ([place], [place], [place], [place]) Address [address] [place] [address] Care Team Providers Care Safety Tech Name Role Phone Manuel Bingham MD Primary Care Provider + Encounter Details Date Type Department Care Team (Late st Contact Info) Description 02/27/2020 Transcribed Document [facility] [place] Family Medicine [facility] [place] [address] ProviderJohn MD [address] [place] [id number] Social History Tobacco Use Types Packs/Day Years Used Date Smoking Tobacco: Never Assessed Comments Unknown Sex and Gender Information Value Date Recorded Sex Assigned at Not on file Legal Sex Female 4:40 PM CDT Gender Identity Not on file Sexual Orientation Not on file documented as of this encounter Miscellaneous Notes * Cerner Conversion Note - Historical ProviderMD - 02/27/2020 11:12 PM COGNOS REPORT DEVELOPER Patient: JESSICA SAWYER Age: 49 years Sex: [...] Surgical history: heart cath. Endometrial Ablation. Cholecystectomy; (36013). colonoscopy. d&c. right carpal tunnel and right [...] % 24.2 % Lymph # 1.19 K/uL [place] % 4.9 % [place] # 0.24 K/uL Eos % 0.0 % [...] Amb pulse ox 97%. Electronically signed by [facility] Conversion Gse Mechanic Cerner at 07/15/2022 8:26 AM CDT documented in this encounter Plan of Treatment Not on file documented as of this encounter Visit Diagnoses Not on filedocumented in this encounter Care Teams Safety Tech Relationship Specialty Start Date End Date Manuel Bingham MD [address] [place] [address] PCP - General Family Medicine 07/31/24 documented as of this encounter
--- OUTSIDE RECORDS SUMMARY | 2024-10-27 07:29 | XMS_ITS | Encounter Summary ---
Author Organization [employer] ([place], [place], [place], [place]) Address [address] [place] [address] Care Team Providers Care Assistant Press Operator Name Role Phone Manuel Bingham MD Primary Care Provider + Encounter Details Date Type Department Care Team (Late st Contact Info) Description 02/25/2020 Transcribed Document [facility] [place] Family Medicine [address] [place] [address] ProviderJohn MD [address] [place] [address] Social History Tobacco Use Types Packs/Day Years Used Date Smoking Tobacco: Never Assessed Comments Unknown Sex and Gender Information Value Date Recorded Sex Assigned at Not on file Legal Sex Female 4:40 PM CDT Gender Identity Not on file Sexual Orientation Not on file documented as of this encounter Miscellaneous Notes * Cerner Conversion Note - Historical ProviderMD - 02/25/2020 9:16 AM PIECE DYER CR Chest 1 Vw Portable Ordered: 02/24/2020 Modified Reason for Exam: cough 02/25/2020 07:43 02/25/2020 09:16 (MITCHEL RAWLS PA) Reviewed by Provider, No further action required x1 documented in this encounter Plan of Treatment Not on file documented as of this encounter Visit Diagnoses Not on filedocumented in this encounter Care Teams Assistant Press Operator Relationship Specialty Start Date End Date Manuel Bingham MD [address] [place] [phone] PCP - General Family Medicine 07/31/24 documented as of this encounter
--- OUTSIDE RECORDS SUMMARY | 2024-10-27 07:29 | XMS_ITS | Encounter Summary ---
Author Organization [employer] ([place], [place], [place], [place]) Address [address] [place] [address] Care Team Providers Care Brand Recorder Name Role Phone Manuel Bingham MD Primary Care Provider + Encounter Details Date Type Department Care Team (Late st Contact Info) Description 02/27/2020 Transcribed Document [facility] [place] Family Medicine [address] [place] [address] ProviderJohn MD [address] [place] [address] Social History Tobacco Use Types Packs/Day Years Used Date Smoking Tobacco: Never Assessed Comments Unknown Sex and Gender Information Value Date Recorded Sex Assigned at Not on file Legal Sex Female 4:40 PM CDT Gender Identity Not on file Sexual Orientation Not on file documented as of this encounter Miscellaneous Notes * [employer]ner Conversion Note - Historical ProviderMD - 02/27/2020 9:22 PM INVASIVE CARDIOVASCULAR TECHNOLOGIST Broset Violence Assessment Entered On: 02/28/2020 2:53 EST Performed On: 02/27/2020 21:30 EST by Raman Peterson, Rn Broset Violence Assessment Broset Violence Checklist of Symptoms : None Broset Violence Symptoms Subtotal : 0 Broset Violence Symptoms Indicator : Low risk (0) Raman Peterson, Rn - 02/28/2020 2:43 EST Electronically signed by Sana [facility] Conversion Plaster Caster Cerner at 07/15/2022 8:10 AM CDT documented in this encounter Plan of Treatment Not on file documented as of this encounter Visit Diagnoses Not on filedocumented in this encounter Care Teams Brand Recorder Relationship Specialty Start Date End Date Manuel Bingham MD [address] [place] [address] PCP - General Family Medicine 07/31/24 documented as of this encounter
--- OUTSIDE RECORDS SUMMARY | 2024-10-27 07:29 | XMS_ITS | Encounter Summary ---
Author Organization [employer] ([place], [place], [place], [place]) Address [address] [place] [address] Care Team Providers Care Driver Sales Name Role Phone Manuel Bingham MD Primary Care Provider + Encounter Details Date Type Department Care Team (Late st Contact Info) Description 02/24/2020 Transcribed Document [facility] [place] [address] [place] [address] ProviderJohn MD [address] [place], [place] [id number] Social History Tobacco Use Types Packs/Day Years Used Date Smoking Tobacco: Never Assessed Comments Unknown Sex and Gender Information Value Date Recorded Sex Assigned at Not on file Legal Sex Female 4:40 PM CDT Gender Identity Not on file Sexual Orientation Not on file documented as of this encounter Miscellaneous Notes * Cerner Conversion Note - Historical ProviderMD - 02/24/2020 2:34 PM HUMAN RESOURCES EXECUTIVE ED Triage Entered On: 02/24/2020 14:49 EST Performed On: 02/24/2020 14:47 EST by RAMILA CHIU ED Triage Across the Room Chief Complaint : C/o fever and cough since 2 am Triage Date/Time : 02/24/2020 14:47 EST RAMILA CHIU - 02/24/2020 14:47 EST DCP GENERIC CODE Tracking Acuity : 4 - Non - Urgent Tracking Group : [facility] RAMILA CHIU - 02/24/2020 14:47 EST [...] 02/24/2020 14:49:24 EST) Problems(Active) Anxiety (SNOMED CT :97506225 ) Name of Problem: Anxiety ; Recorder: Pearl Espino RN; Confirmation: Confirmed ; Classification: Medical ; Code: 86629657 ; Contributor System: [employer] ; Last Updated: 12/19/2016 10:22 EDT ; Life Cycle Date: 12/22/2015 ; Life Cycle Status: Active ; Vocabulary: SNOMED CT CHF (congestive heart failure) (SNOMED CT :18134955 ) Name of Problem: CHF (congestive heart failure) ; Recorder: RAMILA CHIU; Confirmation: Confirmed ; Classification: Medical ; Code: 31526017 ; Contributor System: T[employer] ; Last Updated: 02/24/2020 14:48 EST ; Life Cycle Date: 02/24/2020 ; Life Cycle Status: Active ; Vocabulary: SNOMED CT Endometriosis (SNOMED CT :2757072193 ) Name of Problem: Endometriosis ; Recorder: Pearl Espino RN; Confirmation: Confirmed ; Classification: Medical ; Code: 1627739685 ; Contributor System: [employer] ; Last Updated: 12/22/2015 6:56 EDT ; Life Cycle Date: 12/22/2015 ; Life Cycle Status: Active ; Vocabulary: SNOMED CT HTN (SNOMED CT :3760985392 ) Name of Problem: HTN ; Recorder: Pearl Espino RN; Confirmation: Confirmed ; Classification: Medical ; Code: 3781937663 ; Contributor System: [employer] ; Last Updated: 09/30/2016 16:39 EDT ; Life Cycle Date: 12/22/2015 ; Life Cycle Status: Active ; Vocabulary: SNOMED CT S/P hysterectomy (SNOMED CT :069650303 ) Name of Problem: S/P hysterectomy ; Recorder: BELIA VELÁZQUEZ RN; Confirmation: Confirmed ; Classification: Medical ; Code: 340213791 ; Contributor System: [employer] ; Last Updated: 07/19/2018 19:29 EDT ; Life Cycle Date: 07/19/2018 ; Life Cycle Status: Active ; Vocabulary: SNOMED CT Diagnoses(Active) Cough Date: 02/24/2020 ; Diagnosis Type: Reason For Visit ; Confirmation: Complaint of ; Clinical Dx: Cough ; Classification: Medical ; Clinical Service: Emergency medicine ; Code: PNED ; Probability: 0 ; Diagnosis Code: [id number] ED Height and Weight Height Source : Stated Height Entry Format : [place] Height, Feet : 5 ft(Converted to: 152 cm, 60 Inch) Height, Inches : 4 Inch(Converted to: 0 ft 4 Inch, 10.16 cm) Clinical Height : 162.56 cm Weight Source, ED : Critical estimated dosing weight Weight Entry Format : [place] Weight, Pounds : 190 lb Clinical Dosing Weight : 86.36 kg Body Surface Area (BSA) : 1.92 m2 Body Mass Index : 32.7 kg/m2 (HI) [place] Body Weight (IBW) : 54.3 kg RAMILA CHIU 02/24/2020 14:47 EST documented in this encounter Plan of Treatment Not on file documented as of this encounter Visit Diagnoses Not on filedocumented in this encounter Care Teams Driver Sales Relationship Specialty Start Date End Date Manuel Bingham MD [address] [place] [address] PCP - General Family Medicine 07/31/24 documented as of this encounter
--- OUTSIDE RECORDS SUMMARY | 2024-10-27 07:29 | XMS_ITS | Encounter Summary ---
Author Organization [employer] ([place], [place], [place], [place]) Address [address] [place] [address] Care Team Providers Care Jordan Man Name Role Phone Manuel Bingham MD Primary Care Provider + Encounter Details Date Type Department Care Team (Late st Contact Info) Description 02/27/2020 Transcribed Document [facility] [place] [facility] [place] [address] ProviderJohn MD [address] [place] [address] Social History Tobacco Use Types [...] - John ProviderMD - 02/27/2020 9:22 PM [facility]E WEIGHER ED Triage Entered On: 02/27/2020 21:49 EST [...] EST DCP GENERIC CODE Tracking Group : [facility] Tracking Acuity : 3 [...] 02/27/2020 21:50:26 EST) Problems(Active) Anxiety (SNOMED CT :07219576 ) Name of Problem: Anxiety ; Recorder: Pearl Espino RN; Confirmation: Confirmed ; Classification: Medical ; Code: 43751445 ; Contributor System: [employer]Picker ; Last Updated: 12/19/2016 10:22 EDT ; Life Cycle Date: 12/22/2015 ; Life Cycle Status: Active ; Vocabulary: SNOMED CT CHF (congestive heart failure) (SNOMED CT :94045099 ) Name of Problem: CHF (congestive heart failure) ; Recorder: RAMILA CHIU; Confirmation: Confirmed ; Classification: Medical ; Code: 22153297 ; Contributor System: PowerChart ; Last Updated: 02/24/2020 14:48 EST ; Life Cycle Date: 02/24/2020 ; Life Cycle Status: Active ; Vocabulary: SNOMED CT Endometriosis (SNOMED CT :9869121927 ) Name of Problem: Endometriosis ; Recorder: Pearl Espino RN; Confirmation: Confirmed ; Classification: Medical ; Code: 9383566663 ; Contributor System: PowerChart ; Last Updated: 12/22/2015 6:56 EDT ; Life Cycle Date: 12/22/2015 ; Life Cycle Status: Active ; Vocabulary: SNOMED CT HTN (SNOMED CT :2358949929 ) Name of Problem: HTN ; Recorder: Pearl Espino RN; Confirmation: Confirmed ; Classification: Medical ; Code: 7322916066 ; Contributor System: PowerChart ; Last Updated: 09/30/2016 16:39 EDT ; Life Cycle Date: 12/22/2015 ; Life Cycle Status: Active ; Vocabulary: SNOMED CT S/P cholecystectomy (SNOMED CT :2590525524 ) Name of Problem: S/P cholecystectomy ; Recorder: BELIA VELÁZQUEZ RN; Confirmation: Confirmed ; Classification: Medical ; Code: 1404527516 ; Contributor System: PowerChart ; Last Updated: 02/27/2020 21:44 EST ; Life Cycle Date: 02/27/2020 ; Life Cycle Status: Active ; Vocabulary: SNOMED CT S/P hysterectomy (SNOMED CT :875271955 ) Name of Problem: S/P hysterectomy ; Recorder: BELIA VELÁZQUEZ RN; Confirmation: Confirmed ; Classification: Medical ; Code: 489950531 ; Contributor System: PowerChart ; Last Updated: 07/19/2018 19:29 EDT ; Life Cycle Date: 07/19/2018 ; Life Cycle Status: Active ; Vocabulary: SNOMED CT Diagnoses(Active) Cough Date: 02/27/2020 ; Diagnosis Type: Reason For Visit ; Confirmation: Complaint of ; Clinical Dx: Cough ; Classification: Medical ; Clinical Service: Emergency medicine ; Code: PNED ; Probability: 0 ; Diagnosis Code: [id number] Fever Date: 02/27/2020 ; Diagnosis Type: Reason For Visit ; Confirmation: Complaint of ; Clinical Dx: Fever ; Classification: Medical ; Clinical Service: Emergency medicine ; Code: PNED ; Probability: 0 ; Diagnosis Code: [id number] ED Height and Weight Height Source : Measured Height Entry Format : [place] Height, Feet : 4 ft(Converted to: 122 cm, 48 Inch) Height, Inches : 11 Inch(Converted to: 0 ft 11 Inch, 27.94 cm) Clinical Height : 149.86 cm Weight Source, ED : Standing scale Weight Entry Format : [place] Weight, Pounds : 190 lb Clinical Dosing Weight : 86.36 kg Body Surface Area (BSA) : 1.81 m2 Body Mass Index : 38.5 kg/m2 (HI) [place] Body Weight (IBW) : 42.87 kg BELIA [...] Schedule : No qualifying data available. BELIA VELÁZQEUZ RN - 02/27/2020 21:43 EST Electronically signed by Sana [facility] Conversion Merchandise Execution Leader Cerner at 07/15/2022 8:07 AM CDT documented in this encounter Plan of Treatment Not on file documented as of this encounter Visit Diagnoses Not on filedocumented in this encounter Care Teams Jordan Man Relationship Specialty Start Date End Date Manuel Bingham MD [address] [place] [phone] PCP - General Family Medicine 07/31/24 documented as of this encounter
--- OUTSIDE RECORDS SUMMARY | 2024-10-27 07:29 | XMS_ITS | Encounter Summary ---
Author Organization [employer] ([place], [place], [place], [place]) Address [address] [place] [address] Care Team Providers Care Deployment Technician Name Role Phone Manuel Bingham MD Primary Care Provider + Encounter Details Date Type Department Care Team (Late st Contact Info) Description 02/24/2020 Transcribed Document [facility] [place] [address] [place] [address] ProviderJohn MD [address] [place] [address] Social History Tobacco Use Types Packs/Day Years Used Date Smoking Tobacco: Never Assessed Comments Unknown Sex and Gender Information Value Date Recorded Sex Assigned at Not on file Legal Sex Female 4:40 PM CDT Gender Identity Not on file Sexual Orientation Not on file documented as of this encounter Miscellaneous Notes * Cerner Conversion Note - Historical ProviderMD - 02/24/2020 2:34 PM MICROBIOLOGY DIRECTOR [place] Suicide Severity Rating Scale (C-SSRS) Entered On: 02/24/2020 16:22 EST Performed On: 02/24/2020 16:22 EST by LIS VASQUEZ RN [place] Suicide Severity Rating Scale (C-SSRS) CSSRS Past [...] on filedocumented in this encounter Care Teams Deployment Technician Relationship Specialty Start Date End Date Manuel Bingham MD [address] [place] [address] PCP - General Family Medicine 07/31/24 documented as of this encounter
--- OUTSIDE RECORDS SUMMARY | 2024-10-27 07:29 | XMS_ITS | Encounter Summary ---
Author Organization [employer] ([place], [place], [place], [place]) Address [address] [place] [address] Care Team Providers Care Hardware Manager Name Role Phone Manuel Bingham MD Primary Care Provider + Encounter Details Date Type Department Care Team (Late st Contact Info) Description 02/28/2020 Transcribed Document [facility] [place] [address] [place] [address] ProviderJohn MD [address] [place] [address] Social History Tobacco Use Types [...] John Frank MD - 02/28/2020 7:19 AM PLOW SHAKER ED Discharge Entered On: 02/28/2020 7:19 EST Performed On: 02/28/2020 7:19 EST by LIS VASQUEZ RN Discharge Process Patient Disposition : Discharge LIS VASQUEZ RN - 02/28/2020 7:19 EST Electronically signed by Sana [facility] Conversion [employer] District Switchboard Operator Cerner at 07/15/2022 8:16 AM CDT documented in this encounter Plan of Treatment Not on file documented as of this encounter Visit Diagnoses Not on filedocumented in this encounter Care Teams Hardware Manager Relationship Specialty Start Date End Date Manuel Bingham MD [address] [place] [phone] PCP - General Family Medicine 07/31/24 documented as of this encounter
--- OUTSIDE RECORDS SUMMARY | 2024-10-27 07:29 | XMS_ITS | Encounter Summary ---
Author Organization [employer] ([place], [place], [place], [place]) Address [address] [place] [address] Care Team Providers Care Hole Filler Name Role Phone Manuel Bingham MD Primary Care Provider + Encounter Details Date Type Department Care Team (Late st Contact Info) Description 03/24/2019 Transcribed Document [facility] [place] [address] [place] [address] ProviderJohn MD [address] [place] [address] Social History Tobacco Use Types Packs/Day Years Used Date Smoking Tobacco: Never Assessed Comments Unknown Sex and Gender Information Value Date Recorded Sex Assigned at Not on file Legal Sex Female 4:40 PM CDT Gender Identity Not on file Sexual Orientation Not on file documented as of this encounter Miscellaneous Notes * Cerner Conversion Note - Historical ProviderMD - 03/24/2019 2:29 PM HIP HOP DANCER [place] Suicide Severity Rating Scale (C-SSRS) Entered On: 03/24/2019 15:23 EST Performed On: 03/24/2019 15:21 EST by LAZARO KHALIL RN-Resource [place] Suicide Severity Rating Scale (C-SSRS) CSSRS Past [...] on filedocumented in this encounter Care Teams Hole Filler Relationship Specialty Start Date End Date Manuel Bingham MD [address] [place] [address] PCP - General Family Medicine 07/31/24 documented as of this encounter
--- NOTE | 2024-10-27 07:30 | MR_ITS ---
FINAL REPORT TECHNIQUE: Multiplanar and multisequence imaging of the brain was obtained before and after contrast injection. CLINICAL HISTORY: fall hit the back of her head on concrete on 10/17. since then she has had headaches that will not go away and pain to the touch COMPARISON: 05/23/2020 FINDINGS: There is no mass effect or midline shift. Small foci of periventricular and subcortical white matter are nonspecific. No hydrocephalus. The cerebellum and brainstem have an unremarkable appearance. There are no areas of restricted diffusion on diffusion weighted images to suggest acute infarct. Soft tissues are without acute abnormality. Post contrast images reveal no pathologic contrast enhancement. IMPRESSION: Stable white matter changes. No acute intracranial abnormality or pathologic contrast-enhancement. Reviewed, Interpreted and Dictated by Radha Craft MD Transcribed by Shereen Mason Authenticated and . [facility]
--- OUTSIDE RECORDS SUMMARY | 2024-10-27 07:30 | XMS_ITS | Referral Summary ---
Author Organization [employer] ([place], [place], [place], [place]) Address [address] [place] [address] Care Team Providers Care Chain Offbearer Name Role Phone Manuel Bingham MD Primary Care Provider [phone] Encounters Date Type Department Care Team Description 07/31/2024 9:59 PM EDT - 08/01/2024 1:23 AM EDT Emergency [facility] Emergency Department [address] [place] [address] Carlos Casarez MD Generalized abdominal [...] electronically signed by James Orozco MD Voice barge pilot technology (Power [employer]) is used for the dictation of this note and sound-alike words might be erroneously placed despite reviewing this note for accuracy. Errors in dictation may reflect use of voice recognition software and not all errors in barge pilot may have been detected prior to signing. [...] electronically signed by James Orozco MD Voice barge pilot technology ([employer]) is used for the dictation of this note and sound-alike words might be erroneously placed despite reviewing this note for accuracy. Errors in dictation may reflect use of voice recognition software and not all errors in barge pilot may have been detected prior to signing. us Carlos Casarez MD IMG CT ORDERABLES Final Result * (ABNORMAL) CBC with Auto Diff (07/31/2024 11:26 PM EDT) WBC 9.9 3.9 - 10.0 K/ L 07/31/2024 11:31 PM EDT [facility] RBC 4.22 3.93 - 6.08 M/ L 07/31/2024 11:31 PM EDT [facility] Hemoglobin 13.5 11.2 - 15.7 GM/DL 07/31/2024 11:31 PM EDT [facility] Hematocrit 40.4 34.1 - 44.9 % 07/31/2024 11:31 PM EDT [facility] MCV 96(H) 79 - 95 fL 07/31/2024 11:31 PM EDT [facility] MCH 32.0 25.6 - 32.2 pg 07/31/2024 11:31 PM EDT [facility] MCHC 33.4 32.2 - 36.5 GM/DL 07/31/2024 11:31 PM EDT [facility] RDW 12.7 11.6 - 14.4 % 07/31/2024 11:31 PM EDT [facility] Platelets 244 163 - 369 K/CU MM 07/31/2024 11:31 PM EDT [facility] MPV 10.7 9.4 - 12.4 fL 07/31/2024 11:31 PM EDT [facility] % Neutros 55 34 - 71 % 07/31/2024 11:31 PM EDT [facility] % Lymphs 34 19 - 53 % 07/31/2024 11:31 PM EDT [facility] % Monos 7 4 - 13 % 07/31/2024 11:31 PM EDT [facility] % Eos 3 1 - 7 % 07/31/2024 11:31 PM EDT [facility] % Baso 1 0 - 1 % 07/31/2024 11:31 PM EDT [facility] # Neutros 5.45 1.56 - 6.13 K/ L 07/31/2024 11:31 PM EDT [facility] # Lymphs 3.37 1.18 - 3.74 K/ L 07/31/2024 11:31 PM EDT [facility] # Monos 0.70 0.24 - 0.82 K/ L 07/31/2024 11:31 PM EDT [facility] # Eos 0.26 0.04 - 0.54 K/ L 07/31/2024 11:31 PM EDT [facility] # Baso 0.07 0.01 - 0.08 K/ L 07/31/2024 11:31 PM EDT [facility] Immature Granulocytes-Re lative 0.20 0.00 - 0.60 % 07/31/2024 11:31 PM EDT [facility] # IG 0.02 0.00 - 0.05 K/uL 07/31/2024 11:31 PM EDT [facility] Blood Venipuncture / Unknown 07/31/2024 11:26 PM EDT 07/31/2024 11:27 PM EDT Narrative [facility] - 07/31/2024 11:31 PM EDT [...] ORDERABLES Final Res ult Performing Organization Address City/[facility]/ZIP Co de Phone Number [facility] [address] [phone] * Prothrombin time/INR (07/31/2024 11:26 PM EDT) [facility] Protime 9.7 9.0 - 12.0 seconds 07/31/2024 11:49 PM EDT [facility] INR 0.88 0.80 - 1.10 07/31/2024 11:49 PM EDT [facility] Comment: Recommended therapeutic ranges using [...] ORDERABLES Final Res ult Performing Organization Address [facility] Co de Phone Number [facility] [address] [phone] * (ABNORMAL) Lipase (07/31/2024 11:26 PM EDT) [facility] Lipase 103(H) 13 - 75 U/L 07/31/2024 11:49 PM EDT [facility] Blood Venipuncture / Unknown 07/31/2024 11:26 PM EDT 07/31/2024 11:27 PM EDT Carlos Casarez MD LAB BLOOD ORDERABLES Final Res ult Performing Organization Address City/[facility]/ZIP Co de Phone Number [facility] [address] [phone] * (ABNORMAL) Comprehensive metabolic panel (07/31/2024 11:26 PM EDT) [facility] Sodium 138 136 - 146 meq/L 07/31/2024 11:49 PM [facility] Potassium 4.0 3.5 - 5.1 meq/L 07/31/2024 11:49 PM [facility] Chloride 108 102 - 112 meq/L 07/31/2024 11:49 PM [facility] CO2 25 21 - 32 meq/L 07/31/2024 11:49 PM [facility] Calcium 9.2 8.5 - 10.1 mg/dL 07/31/2024 11:49 PM [facility] Glucose 156(H) 74 - 106 mg/dL 07/31/2024 11:49 PM [facility] BUN 20 7 - 22 mg/dL 07/31/2024 11:49 PM [facility] Creatinine 1.13(H) 0.55 - 1.02 mg/dL 07/31/2024 11:49 PM [facility] BUN/Creatinine 18 8 - 20 07/31/2024 11:49 PM [facility] Albumin 3.2(L) 3.4 - 5.0 g/dL 07/31/2024 11:49 PM [facility] Alkaline Phosphatase 69 27 - 136 U/L 07/31/2024 11:49 PM [facility] ALT 23 12 - 78 U/L 07/31/2024 11:49 PM [facility] AST 17 5 - 37 U/L 07/31/2024 11:49 PM [facility] Total Bilirubin 0.2 0.2 - 1.3 mg/dL 07/31/2024 11:49 PM [facility] Protein, Total 7.1 6.4 - 8.2 gm/dL 07/31/2024 11:49 PM [facility] Anion Gap 9 9 - 20 07/31/2024 11:49 PM [facility] A/G Ratio 0.8(L) 1.1 - 2.5 07/31/2024 11:49 PM [facility] Globulin 3.9 1.5 - 4.5 g/dL 07/31/2024 11:49 PM EDT [facility] Osmolality Calc 281.5 mOsm/kg 11:49 PM EDT [facility] eGFR (mL/min/1.73m2) 58(L) >=60 mL/min/1.7 3m2 07/31/2024 11:49 PM EDT [facility] Comment:ESTIMATED GFR IS NOT ACCURATE CREATININE CLEARANCE IN PREDICTING GLOMERULAR FILTRATION RATE. ESTIMATED GFR IS NOT APPLICABLE FOR DIALYSIS PATIENTS. Blood Venipuncture / Unknown 07/31/2024 11:26 PM EDT 07/31/2024 11:27 PM EDT us Carlos Casarez MD LAB BLOOD ORDERABLES Final Res ult [facility] [address] [place] [address], [facility] [phone] * (ABNORMAL) Urinalysis, Reflex Microscopic and Culture If Indicated (07/31/2024 11:22 PM EDT) Color, UA Light Yellow 07/31/2024 11:31 PM EDT [facility] Clarity, UA Turbid(A) Clear 07/31/2024 11:31 PM EDT [facility] Specific [place], UA 1.013 1.005 - 1.030 07/31/2024 11:31 PM EDT [facility] pH, UA 5.5(L) 6.0 - 8.0 07/31/2024 11:31 PM EDT [facility] Leukocytes, UA Negative Negative 07/31/2024 11:31 PM EDT [facility] Nitrite, UA Negative Negative 07/31/2024 11:31 PM EDT [facility] Protein, UA Negative Negative 07/31/2024 11:31 PM EDT [facility] Glucose, UA Normal Normal 07/31/2024 11:31 PM EDT [facility] Ketones, UA Negative Negative 07/31/2024 11:31 PM EDT [facility] Bilirubin, UA Negative Negative 07/31/2024 11:31 PM EDT [facility] Blood, UA Negative Negative 07/31/2024 11:31 PM EDT [facility] Urobilinogen, UA Normal Normal 07/31/2024 11:31 PM EDT [facility] Specimen Source Urine, Clean Catch 07/31/2024 11:31 PM EDT [facility] Urine URINE SPECIMEN COLLECTION, CLEAN CATCH / Unknown 07/31/2024 11:22 PM EDT 07/31/2024 11:22 PM EDT us Carlos Casarez MD URINE ORDERABLES Final Result [facility] [address] [employer] [address] [place] [address], [facility] [phone] * (ABNORMAL) Urinalysis Microscopic Only (07/31/2024 11:22 PM EDT) WBC, UA 0-2(A) None Seen /HPF 07/31/2024 11:31 PM EDT [facility] RBC, UA 0-2(A) None Seen /HPF 07/31/2024 11:31 PM EDT [facility] Bacteria, UA 3+(A) Trace, None Seen 07/31/2024 11:31 PM EDT [facility] SQUAMOUS EPITHELIAL 0-2(A) None Seen /HPF 07/31/2024 11:31 PM EDT [facility] Urine URINE SPECIMEN COLLECTION, CLEAN CATCH / Unknown 07/31/2024 11:22 PM EDT 07/31/2024 11:22 PM EDT us Carlos Casarez MD URINE ORDERABLES Final Result [facility] [address] [place] [address], [facility] [phone] from Last 3 Months Insurance [employer] MED[employer] HMO Care Teams Chain Offbearer Relationship Specialty Start Date End Date Manuel Bingham MD [address] [place] [address] PCP - General Family Medicine 07/31/24
--- OUTSIDE RECORDS SUMMARY | 2024-10-27 07:30 | XMS_ITS | Encounter Summary ---
Author Organization [employer] ([place], [place], [place], [place]) Address [address] [place] [address] Care Team Providers Care Aircraft Sheet Metal Mechanic Name Role Phone Manuel Bingham MD Primary Care Provider + Encounter Details Date Type Department Care Team (Late st Contact Info) Description 11/30/2019 Transcribed Document [facility] Radiology [address] [place] [address] Devyn Roman MD [address] [place] [address] Dept. of Emergency Medicine [place] [id number] Social History Tobacco Use Types Packs/Day Years [...] Surgical history: heart cath. Endometrial Ablation. Cholecystectomy; (10734). colonoscopy. d&c. right carpal tunnel and right [...] medicine, Medical Plan Condition: Stable. Prescriptions: Prescription Cream Ripener Pharmacy: albuterol [facility] free 90 mcg/inh inhalation [...] on filedocumented in this encounter Care Teams Aircraft Sheet Metal Mechanic Relationship Specialty Start Date End Date Manuel Bingham MD [address] [place] [phone] PCP - General Family Medicine 07/31/24 documented as of this encounter
--- OUTSIDE RECORDS SUMMARY | 2024-10-27 07:30 | XMS_ITS | Encounter Summary ---
Author Organization [employer] ([place], [place], [place], [place]) Address [address] [place] [address] Care Team Providers Care Barrel Inspector Name Role Phone Manuel Bingham MD Primary Care Provider + Encounter Details Date Type Department Care Team (Late st Contact Info) Description 02/24/2020 Transcribed Document [facility] [place] [address] [place] [address] ProviderJohn MD [address] [place] [address] Social History Tobacco Use Types Packs/Day Years Used Date Smoking Tobacco: Never Assessed Comments Unknown Sex and Gender Information Value Date Recorded Sex Assigned at Not on file Legal Sex Female 4:40 PM CDT Gender Identity Not on file Sexual Orientation Not on file documented as of this encounter Miscellaneous Notes * [employer]ner Conversion Note - Historical ProviderMD - 02/24/2020 2:34 PM TUBE DRAWING SUPERVISOR ED Assessment Entered On: 02/24/2020 16:24 EST [...] Communication Barrier : None Primary Language : Belize[place] Any Spiritual/Cultural Needs or Requests : No [...] on filedocumented in this encounter Care Teams Barrel Inspector Relationship Specialty Start Date End Date Manuel Bingham MD [address] [place] [address] PCP - General Family Medicine 07/31/24 documented as of this encounter
--- OUTSIDE RECORDS SUMMARY | 2024-10-27 07:30 | XMS_ITS | Encounter Summary ---
Author Organization [employer] ([place], [place], [place], [place]) Address [address] [place] [address] Care Team Providers Care Cadmium Liquor Maker Name Role Phone Manuel Bingham MD Primary Care Provider + Encounter Details Date Type Department Care Team (Late st Contact Info) Description 11/30/2019 Transcribed Document [facility] [place] [facility] Family Medicine [facility] [place] [address] ProviderJohn MD [address] [place] [address] Social History Tobacco Use Types [...] Frank MD - 11/30/2019 4:00 [place] [address] JESSICA SAWYER :1970 Visit Time:11/29/2019 Your Visit [...] Inhalation Four Times A Day Pickup at [facility]/pharmacy #[id number] aspirin (aspirin 81 mg oral tablet) 1 [...] 1 Tablet(s) Oral Every Day Pharmacy Information [facility]/pharmacy #[id number]: [address] [id number] [phone] The home medications listed are only as [...] range between ( 1.0 and 7.0 ) [place] #: 0.56 K/uL -- Normal range between ( 0.24 and 0.82 ) [place] #: 0.18 K/uL -- Normal range between ( 0.04 and 0.54 ) [place] %: 6.6 % -- Normal range between [...] these instructions at home: Medicines ??? Take gogx-emd-yyrcvbo and prescription medicines only as told by [...] 03/19/2004 Document Revised: 02/27/2018 Document Reviewed: 03/13/2017 [employer] Patient Education ?? 2020 [employer]. Emergency Awareness and Preventative Care STROKE is [...] Assistance with quitting is available by contacting 6-461-FGUQ-NOW. This is a free resource providing counseling, [...] was given the opportunity to ask questions. Patient/Salvationist Name: Patient/Salvationist Signature: Relationship to Patient: Clinician/Hospital Salvationist Signature: Please Provide a Telephone Number Where You Can Be Reached: Is it Permissible To Leave a Message? Date: Electronically signed by Sana, [facility] Conversion Elocution Teacher Sandeep at 07/15/2022 8:05 AM CDT documented in this encounter Plan of Treatment Not on file documented as of this encounter Visit Diagnoses Not on filedocumented in this encounter Care Teams Cadmium Liquor Maker Relationship Specialty Start Date End Date Manuel Bingham MD [address] [place] [address] PCP - General Family Medicine 07/31/24 documented as of this encounter
--- OUTSIDE RECORDS SUMMARY | 2024-10-27 07:30 | XMS_ITS | Encounter Summary ---
Author Organization [employer] ([place], [place], [place], [place]) Address [address] [place] [address] Care Team Providers Care Drop Wire Operator Name Role Phone Manuel Bingham MD Primary Care Provider + Encounter Details Date Type Department Care Team (Late st Contact Info) Description 11/29/2019 Transcribed Document [facility] [place] Family Medicine [address] [place] [address] ProviderJohn MD [address] [place] [address] Social History Tobacco Use Types Packs/Day Years [...] On: 11/30/2019 3:11 EDT by Sydni Guerra, networker Quick Look Assessment Level of Consciousness : Alert, Awake Affect/Behavior : Appropriate, Calm, Cooperative Orientation : Oriented x 4 Skin Temperature : Warm Skin Description : Normal for ethnicity Sydni Guerra Rn - 11/30/2019 3:11 EDT ED General-Functional Assess Information Obtained From : Patient Preferred Communication Mode : Verbal Communication Barrier : None Primary Language : Norwegian Any Spiritual/Cultural Needs or Requests : No [...] Rhythm : Regular Nail Bed Color : [place] Chest Pain : No Sydni Guerra Rn [...] 3:11 EDT Electronically signed by Sana [facility] Conversion Marine Reporter Cerner at 07/15/2022 8:09 AM CDT documented in this encounter Plan of Treatment Not on file documented as of this encounter Visit Diagnoses Not on filedocumented in this encounter Care Teams Drop Wire Operator Relationship Specialty Start Date End Date Manuel Bingham MD [address] [place] [address] PCP - General Family Medicine 07/31/24 documented as of this encounter
--- OUTSIDE RECORDS SUMMARY | 2024-10-27 07:30 | XMS_ITS | Encounter Summary ---
Author Organization [employer] ([place], [place], [place], [place]) Address [address] [place] [address] Care Team Providers Care Photographer Name Role Phone Manuel Bingham MD Primary Care Provider + Encounter Details Date Type Department Care Team (Late st Contact Info) Description 11/29/2019 Transcribed Document [facility] [place] Family Medicine [facility] [place] [address] ProviderJohn MD [address] [place] [address] Social History Tobacco Use Types Packs/Day Years [...] On: 11/30/2019 0:39 EDT by FRANKIE CRESPO, HIDE STRETCHER HAND Triage Across the Room Chief Complaint : Pt co Increased SOA with mid chest pain that began this AM. pt is calm alert skinpwd. Triage Date/Time : 11/30/2019 0:39 EDT FRANKIE CRESPO RN - 11/30/2019 0:39 EDT DCP GENERIC CODE Tracking Acuity : 2 - Emergent Tracking Group : [facility] ED East FRANKIE CRESPO RN - 11/30/2019 [...] 11/30/2019 00:41:48 EDT) Problems(Active) Anxiety (SNOMED CT :29869919 ) Name of Problem: Anxiety ; Recorder: Pearl Espino RN; Confirmation: Confirmed ; Classification: Medical ; Code: [id number] ; Contributor System: [employer] ; Last Updated: 12/19/2016 10:22 EDT ; Life Cycle Date: 12/22/2015 ; Life Cycle Status: Active ; Vocabulary: SNOMED CT Endometriosis (SNOMED CT :0849311557 ) Name of Problem: Endometriosis ; Recorder: Pearl Espino RN; Confirmation: Confirmed ; Classification: Medical ; Code: [id number] ; Contributor System: [employer] ; Last Updated: 12/22/2015 6:56 EDT ; Life Cycle Date: 12/22/2015 ; Life Cycle Status: Active ; Vocabulary: SNOMED CT HTN (SNOMED CT :2644282985 ) Name of Problem: HTN ; Recorder: Pearl Espino RN; Confirmation: Confirmed ; Classification: Medical ; Code: [id number] ; Contributor System: [employer] ; Last Updated: 09/30/2016 16:39 EDT ; Life Cycle Date: 12/22/2015 ; Life Cycle Status: Active ; Vocabulary: SNOMED CT S/P hysterectomy (SNOMED CT :684369171 ) Name of Problem: S/P hysterectomy ; Recorder: BELIA VELÁZQUEZ RN; Confirmation: Confirmed ; Classification: Medical ; Code: [id number] ; Contributor System: [employer] ; Last Updated: 07/19/2018 19:29 EDT ; Life Cycle Date: 07/19/2018 ; Life Cycle Status: Active ; Vocabulary: SNOMED CT Diagnoses(Active) Chest pain Date: 11/30/2019 ; Diagnosis Type: Reason For Visit ; Confirmation: Complaint of ; Clinical Dx: Chest pain ; Classification: Medical ; Clinical Service: Emergency medicine ; Code: PNED ; Probability: 0 ; Diagnosis Code: [id number] ED Height and Weight Height Source : Measured Height Entry Format : [place] Height, Feet : 5 ft(Converted to: 152 cm, 60 Inch) Height, Inches : 0 Inch(Converted to: 0 ft 0 Inch, 0.00 cm) Clinical Height : 152.4 cm Weight Source, ED : Standing scale Weight Entry Format : [place] Weight, Pounds : 217 lb Clinical Dosing Weight : 98.64 kg Body Surface Area (BSA) : 1.93 m2 Body Mass Index : 42.5 kg/m2 (>HHI) [place] Body Weight (IBW) : 45.16 kg FARNKIE CRESPO RN - 11/30/2019 0:39 EDT Pain [...] on filedocumented in this encounter Care Teams Photographer Relationship Specialty Start Date End Date Manuel Bingham MD [address] [place] [address] PCP - General Family Medicine 07/31/24 documented as of this encounter
--- OUTSIDE RECORDS SUMMARY | 2024-10-27 07:30 | XMS_ITS | Encounter Summary ---
Author Organization [employer] ([place], [place], [place], [place]) Address [address] [place] [address] Care Team Providers Care Colorist Dyer Name Role Phone Manuel Bingham MD Primary Care Provider + Encounter Details Date Type Department Care Team (Late st Contact Info) Description 11/29/2019 Transcribed Document [facility] [place] [facility] Family Medicine [facility] [address] ProviderJohn MD [address] [place] [address] Social History Tobacco Use Types Packs/Day Years Used Date Smoking Tobacco: Never Assessed Comments Unknown Sex and Gender Information Value Date Recorded Sex Assigned at Not on file Legal Sex Female 4:40 PM CDT Gender Identity Not on file Sexual Orientation Not on file documented as of this encounter Miscellaneous Notes * Cerner Conversion Note - John ProviderMD - 11/29/2019 11:44 PM CDT [place] Suicide Severity Rating Scale (C-SSRS) Entered On: 11/30/2019 3:11 EDT Performed On: 11/30/2019 1:20 EDT by Sydni Guerra Rn [place] Suicide Severity Rating Scale (C-SSRS) CSSRS Past [...] on filedocumented in this encounter Care Teams Colorist Dyer Relationship Specialty Start Date End Date Manuel Bingham MD [address] [place] [address] PCP - General Family Medicine 07/31/24 documented as of this encounter
--- OUTSIDE RECORDS SUMMARY | 2024-10-27 07:30 | XMS_ITS | Clinical Summary ---
Author Organization [employer] ([place], [place], [place], [place]) Address [address] [place] [address] Care Team Providers Care Chief Informatics Officer Name Role Phone Manuel Bingham MD [...] EDT - 08/01/2024 1:23 AM EDT Emergency [facility] Emergency Department [address] [place] [phone] Carlos Casarez MD Generalized abdominal pain [...] electronically signed by James Orozco MD Voice director inbound sales technology ([employer]) is used for the dictation of this note and sound-alike words might be erroneously placed despite reviewing this note for accuracy. Errors in dictation may reflect use of voice recognition software and not all errors in director inbound sales may have been detected prior to signing. [...] electronically signed by James Orozco MD Voice director inbound sales technology ([employer]) is used for the dictation of this note and sound-alike words might be erroneously placed despite reviewing this note for accuracy. Errors in dictation may reflect use of voice recognition software and not all errors in director inbound sales may have been detected prior to signing. us Carlos Casarez MD IMG CT ORDERABLES Final Result * (ABNORMAL) CBC with Auto Diff (07/31/2024 11:26 PM EDT) WBC 9.9 3.9 - 10.0 K/ L 07/31/2024 11:31 PM EDT [facility] RBC 4.22 3.93 - 6.08 M/ L 07/31/2024 11:31 PM EDT [facility] Hemoglobin 13.5 11.2 - 15.7 GM/DL 07/31/2024 11:31 PM EDT [facility] Hematocrit 40.4 34.1 - 44.9 % 07/31/2024 11:31 PM EDT [facility] MCV 96(H) 79 - 95 fL 07/31/2024 11:31 PM EDT [facility] MCH 32.0 25.6 - 32.2 pg 07/31/2024 11:31 PM EDT [facility] MCHC 33.4 32.2 - 36.5 GM/DL 07/31/2024 11:31 PM EDT [facility] RDW 12.7 11.6 - 14.4 % 07/31/2024 11:31 PM EDT [facility] Platelets 244 163 - 369 K/CU MM 07/31/2024 11:31 PM EDT [facility] MPV 10.7 9.4 - 12.4 fL 07/31/2024 11:31 PM EDT [facility] % Neutros 55 34 - 71 % 07/31/2024 11:31 PM EDT [facility] % Lymphs 34 19 - 53 % 07/31/2024 11:31 PM EDT [facility] % Monos 7 4 - 13 % 07/31/2024 11:31 PM EDT [facility] % Eos 3 1 - 7 % 07/31/2024 11:31 PM EDT [facility] % Baso 1 0 - 1 % 07/31/2024 11:31 PM EDT [facility] # Neutros 5.45 1.56 - 6.13 K/ L 07/31/2024 11:31 PM EDT [facility] # Lymphs 3.37 1.18 - 3.74 K/ L 07/31/2024 11:31 PM EDT [facility] # Monos 0.70 0.24 - 0.82 K/ L 07/31/2024 11:31 PM EDT [facility] # Eos 0.26 0.04 - 0.54 K/ L 07/31/2024 11:31 PM EDT [facility] # Baso 0.07 0.01 - 0.08 K/ L 07/31/2024 11:31 PM EDT [facility] Immature Granulocytes-Re lative 0.20 0.00 - 0.60 % 07/31/2024 11:31 PM EDT [facility] # IG 0.02 0.00 - 0.05 K/uL 07/31/2024 11:31 PM EDT [facility] Blood Venipuncture / Unknown 07/31/2024 11:26 PM EDT 07/31/2024 11:27 PM EDT Narrative [facility] - 07/31/2024 11:31 PM EDT When [...] ORDERABLES Final Res ult Performing Organization Address [facility] [place]/[facility] Co de Phone Number [facility] [address] [place] [employer] [address] [phone] * Prothrombin time/INR (07/31/2024 11:26 PM EDT) Protime 9.7 9.0 - 12.0 seconds 07/31/2024 11:49 PM EDT [facility] INR 0.88 0.80 - 1.10 07/31/2024 11:49 PM EDT [facility] Comment: Recommended therapeutic ranges using International Normalized Ratio (INR) are: INR RANGE 2.0 - 3.0 Routine oral anticoagulant therapy 2.5 - 3.5 Oral anticoagulant therapy for patients with thromboembolic events on standard doses of Coumadin and those with mechanical heart valves. Blood Venipuncture / Unknown 07/31/2024 11:26 PM EDT 07/31/2024 11:27 PM EDT Carols Casarez MD LAB BLOOD ORDERABLES Final Res ult Performing Organization Address [facility] [place]/[facility] Co de Phone Number [facility] [address] [phone] * (ABNORMAL) Lipase (07/31/2024 11:26 PM EDT) Lipase 103(H) 13 - 75 U/L 07/31/2024 11:49 PM EDT [facility] Blood Venipuncture / Unknown 07/31/2024 11:26 PM EDT 07/31/2024 11:27 PM EDT us Carlos Casarez MD LAB BLOOD ORDERABLES Final Res ult [facility] [address] [phone] * (ABNORMAL) Comprehensive metabolic panel (07/31/2024 11:26 PM EDT) [facility] Sodium 138 136 - 146 meq/L 07/31/2024 11:49 PM EDT [facility] Potassium 4.0 3.5 - 5.1 meq/L 07/31/2024 11:49 PM EDT [facility] Chloride 108 102 - 112 meq/L 07/31/2024 11:49 PM EDT [facility] CO2 25 21 - 32 meq/L 07/31/2024 11:49 PM EDT [facility] Calcium 9.2 8.5 - 10.1 mg/dL 07/31/2024 11:49 PM EDT [facility] Glucose 156(H) 74 - 106 mg/dL 07/31/2024 11:49 PM EDT [facility] BUN 20 7 - 22 mg/dL 07/31/2024 11:49 PM EDT [facility] Creatinine 1.13(H) 0.55 - 1.02 mg/dL 07/31/2024 11:49 PM EDT [facility] BUN/Creatinine 18 8 - 20 07/31/2024 11:49 PM EDT [facility] Albumin 3.2(L) 3.4 - 5.0 g/dL 07/31/2024 11:49 PM EDT [facility] Alkaline Phosphatase 69 27 - 136 U/L 07/31/2024 11:49 PM EDT [facility] ALT 23 12 - 78 U/L 07/31/2024 11:49 PM EDT [facility] AST 17 5 - 37 U/L 07/31/2024 11:49 PM EDT [facility] Total Bilirubin 0.2 0.2 - 1.3 mg/dL 07/31/2024 11:49 PM EDT [facility] Protein, Total 7.1 6.4 - 8.2 gm/dL 07/31/2024 11:49 PM EDT [facility] Anion Gap 9 9 - 20 07/31/2024 11:49 PM EDT [facility] A/G Ratio 0.8(L) 1.1 - 2.5 07/31/2024 11:49 PM EDT [facility] Globulin 3.9 1.5 - 4.5 g/dL 07/31/2024 11:49 PM EDT [facility] Osmolality Calc 281.5 mOsm/kg 11:49 PM T [facility] eGFR (mL/min/1.73m2) 58(L) >=60 mL/min/1.7 3m2 07/31/2024 11:49 PM EDT [facility] Comment:ESTIMATED GFR IS NOT ACCURATE CREATININE CLEARANCE IN PREDICTING GLOMERULAR FILTRATION RATE. ESTIMATED GFR IS NOT APPLICABLE FOR DIALYSIS PATIENTS. Blood Venipuncture / Unknown 07/31/2024 11:26 PM EDT 07/31/2024 11:27 PM EDT us Carlos Casarez MD LAB BLOOD ORDERABLES Final Res ult [facility] [address] [place] [address], [facility] [phone] * (ABNORMAL) Urinalysis, Reflex Microscopic and Culture If Indicated (07/31/2024 11:22 PM EDT) Color, UA Light Yellow 07/31/2024 11:31 PM EDT [facility] Clarity, UA Turbid(A) Clear 07/31/2024 11:31 PM EDT [facility] Specific [place], UA 1.013 1.005 - 1.030 07/31/2024 11:31 PM EDT [facility] pH, UA 5.5(L) 6.0 - 8.0 07/31/2024 11:31 PM EDT [facility] Leukocytes, UA Negative Negative 07/31/2024 11:31 PM EDT [facility] Nitrite, UA Negative Negative 07/31/2024 11:31 PM EDT [facility] Protein, UA Negative Negative 07/31/2024 11:31 PM EDT [facility] Glucose, UA Normal Normal 07/31/2024 11:31 PM EDT [facility] Ketones, UA Negative Negative 07/31/2024 11:31 PM EDT [facility] Bilirubin, UA Negative Negative 07/31/2024 11:31 PM EDT [facility] Blood, UA Negative Negative 07/31/2024 11:31 PM EDT [facility] Urobilinogen, UA Normal Normal 07/31/2024 11:31 PM EDT [facility] Specimen Source Urine, Clean Catch 07/31/2024 11:31 PM EDT [facility] Urine URINE SPECIMEN COLLECTION, CLEAN CATCH / Unknown 07/31/2024 11:22 PM EDT 07/31/2024 11:22 PM EDT Carlos Casarez MD URINE ORDERABLES Final Result [facility] [address] [place] [address] * (ABNORMAL) Urinalysis Microscopic Only (07/31/2024 11:22 PM EDT) WBC, UA 0-2(A) None Seen /HPF 07/31/2024 11:31 PM EDT [facility] RBC, UA 0-2(A) None Seen /HPF 07/31/2024 11:31 PM EDT [facility] Bacteria, UA 3+(A) Trace, None Seen 07/31/2024 11:31 PM EDT [facility] SQUAMOUS EPITHELIAL 0-2(A) None Seen /HPF 07/31/2024 11:31 PM EDT [facility] Urine URINE SPECIMEN COLLECTION, CLEAN CATCH / Unknown 07/31/2024 11:22 PM EDT 07/31/2024 11:22 PM EDT us Carlos Casarez MD URINE ORDERABLES Final Result [facility] [address] [place] [address], [facility] [phone] from Last 3 Months Insurance [facility] MEDICARE HMO Care Teams Chief Informatics Officer Relationship Specialty Start Date End Date Manuel Bingham MD [address] [place] [address] PCP - General Family Medicine 07/31/24
--- OUTSIDE RECORDS SUMMARY | 2024-10-27 07:30 | XMS_ITS | Encounter Summary ---
Author Organization [employer] ([place], [place], [place], [place]) Address [address] [place] [address] Care Team Providers Care Director Outpatient Services Name Role Phone Manuel Bingham MD Primary Care Provider + Encounter Details Date Type Department Care Team (Late st Contact Info) Description 11/30/2019 Transcribed Document [facility] [place] [facility] [place] [address] ProviderJohn MD [address] [place] [address] Social History Tobacco Use Types Packs/Day Years [...] on filedocumented in this encounter Care Teams Director Outpatient Services Relationship Specialty Start Date End Date Manuel Bingham MD [address] [place] [address] PCP - General Family Medicine 07/31/24 documented as of this encounter
[2024-10-27] MEDS: SODIUM CHLORIDE 0.9% 10ML SYR (RAD ONLY) 10 ML IV (08:29)
[2024-10-27] MEDS: GADOTERIDOL INJ 20ML SYRINGE 20 ML IV (08:29)
== END 2024-10-27 23:59 | disposition home or self-care (01) ==
LOC: RAD 07:26
PROVIDERS: PCP Family Medicine; Visit Provider Family Medicine
DX: R90.82 White matter disease, unspecified (principal); R51.9 Headache, unspecified; W19.XXXA Unspecified fall, initial encounter
CPT/HCPCS: 70553; A9576

== ENCOUNTER 2024-10-28 08:19 | Outpatient (CLI) | payer OTHER, MEDICARE, MEDICAID, SELFPAY ==
--- OUTSIDE RECORDS SUMMARY | 2024-10-28 08:25 | XMS_ITS | Encounter Summary ---
Author Organization [employer] ([place], [place], [place], [place]) Address [address] [place] [address] Care Team Providers Care Reproductive Healthcare Assistant Name Role Phone Manuel Bingham MD Primary Care Provider + Encounter Details Date Type Department Care Team (Late st Contact Info) Description 05/27/2019 Transcribed Document [facility] Family Medicine [address] [place] [address] ProviderJohn MD [address] [place] [address] Social History Tobacco Use Types Packs/Day Years Used Date Smoking Tobacco: Never Assessed Comments Unknown Sex and Gender Information Value Date Recorded Sex Assigned at Not on file Legal Sex Female 4:40 PM CDT Gender Identity Not on file Sexual Orientation Not on file documented as of this encounter Miscellaneous Notes * Cerner Conversion Note - Historical ProviderMD - 05/27/2019 6:13 PM EXCEPTIONAL CHILDREN TEACHER [place] Suicide Severity Rating Scale (C-SSRS) Entered On: 05/27/2019 19:40 EST Performed On: 05/27/2019 19:40 EST by JUDIE CELIS RN [place] Suicide Severity Rating Scale (C-SSRS) CSSRS Past Month Wish to be : No CSSRS Past Month Suicidal Thoughts : No CSSRS Lifetime Suicide Behavior : No Suicide Severity Rating Score : 0 Suicide Severity Rating : No Additional Care Required at this time JUDIE CELIS RN - 05/27/2019 19:40 EST documented in this encounter Plan of Treatment Not on file documented as of this encounter Visit Diagnoses Not on filedocumented in this encounter Care Teams Reproductive Healthcare Assistant Relationship Specialty Start Date End Date Manuel Bingham MD [address] [place] [address] PCP - General Family Medicine 07/31/24 documented as of this encounter
--- OUTSIDE RECORDS SUMMARY | 2024-10-28 08:25 | XMS_ITS | Clinical Summary ---
Author Organization [facility] Address [address] [place] [address] Care Team Providers Care Parking Meter Collector Name Role Phone Juan M Manjinder Styles DO Primary Care Provider [phone] Allergies No known active allergies Medications aspirin [...] Description 12/16/2024 9:30 AM EDT Office Visit [facility] [address] [facility] [address] [place] [address] 12/16/2024 10:00 AM EDT Office Visit [facility] [address] [facility] [address] [place] [address] Manjinder Sauceda MD [address] [place] [address] 12/16/2024 11:00 AM EDT Office Visit [facility] [address] [place] [address] Manjinder Franklin MD [address] [facility] [address] [place] [address] Health Maintenance Due Date Last Done Comments [...] Final Result from Last 3 Months Insurance [facility] MEDICARE ADVANTAGE HMO MEDICARE A & B Care Teams Parking Meter Collector Relationship Specialty Start Date End Date Manjinder Mcgowan DO [address] [place] [address] [address] [place] [address] PCP - General Internal Medicine 06/08/24
--- OUTSIDE RECORDS SUMMARY | 2024-10-28 08:25 | XMS_ITS | Encounter Summary ---
Author Organization [employer] ([place], [place], [place], [place]) Address [address] [place] [address] Care Team Providers Care Horse And Wagon Driver Name Role Phone Manuel Bingham MD Primary Care Provider + Encounter Details Date Type Department Care Team (Late st Contact Info) Description 05/27/2019 Transcribed Document [facility] [place] Family Medicine [address] [place] [address] ProviderJohn MD [address] [place] [address] Social History Tobacco Use Types Packs/Day Years Used Date Smoking Tobacco: Never Assessed Comments Unknown Sex and Gender Information Value Date Recorded Sex Assigned at Not on file Legal Sex Female 4:40 PM CDT Gender Identity Not on file Sexual Orientation Not on file documented as of this encounter Miscellaneous Notes * Cerner Conversion Note - John ProviderMD - 05/27/2019 9:29 PM NET SOFTWARE ENGINEER ED Discharge Entered On: 05/27/2019 21:29 EST [...] 05/27/2019 21:29 EST Electronically signed by Sana, [facility] Conversion Asphalt Mixing Machine Operator Cerner at 07/15/2022 8:13 AM CDT documented in this encounter Plan of Treatment Not on file documented as of this encounter Visit Diagnoses Not on filedocumented in this encounter Care Teams Horse And Wagon Driver Relationship Specialty Start Date End Date Manuel Bingham MD [address] [place] [address] PCP - General Family Medicine 07/31/24 documented as of this encounter
--- OUTSIDE RECORDS SUMMARY | 2024-10-28 08:25 | XMS_ITS | Encounter Summary ---
Author Organization [employer] ([place], [place], [place], [place]) Address [address] [place] [address] Care Team Providers Care Communications Lead Name Role Phone Manuel Bingham MD Primary Care Provider + Encounter Details Date Type Department Care Team (Late st Contact Info) Description 05/27/[address] [facility] Radiology [address] [place] [address] Devyn Gross MD [address] [place] [address] Dept[place] [address] Social History Tobacco Use Types Packs/Day Years [...] Surgical history: heart cath. Endometrial Ablation. Cholecystectomy; (29150). colonoscopy. d&c. right carpal tunnel and right [...] EST Height Source Stated Height Entry Format [place] Height/Length, BOLIVIAN (ft) 5 ft Height/Length BOLIVIAN 0 Inch CLINICALHEIGHT 152.4 cm [place] Body Weight 45.16 kg Weight Source, ED Critical estimated dosing weight Weight Entry Format Philo Weight Comoran lb 193 lb CLINICALWEIGHT 87.73 kg Body [...] on filedocumented in this encounter Care Teams Communications Lead Relationship Specialty Start Date End Date Manuel Bingham MD [address] [place] [address] PCP - General Family Medicine 07/31/24 documented as of this encounter
--- OUTSIDE RECORDS SUMMARY | 2024-10-28 08:26 | XMS_ITS | Encounter Summary ---
Author Organization [employer] ([place], [place], [place], [place]) Address [address] [place] [address] Care Team Providers Care Foreman Or Supervisor And Operator Name Role Phone Manuel Bingham MD Primary Care Provider + Encounter Details Date Type Department Care Team (Late st Contact Info) Description 08/24/2021 Transcribed Document [facility] [place] Family Medicine [facility] [place] [address] ProviderJohn MD [address] [place] [address] Social History Tobacco Use Types Packs/Day Years [...] graduated high school. 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 She is single with two children. She was previously , although she did not recall when she or how long she has been . Ms. Sawyer currently attends outpatient counseling and she receives psychopharmacological intervention at an unspecified clinic in [place]. She referred to her therapist as, ??? [...] Sawyer was unaware that she was in [place] for the assessment. She stated she was currently in [place]. She was aware of the current physician president. She was able to tell me [...] and depression. This note was dictated using itsDapper voice recognition software. Cc: Sweta Lion D.O. Electronically signed by Sana [facility] Conversion Soldering Machine Operator Automatic Cerner at 07/15/2022 8:24 AM CDT documented in this encounter Plan of Treatment Not on file documented as of this encounter Visit Diagnoses Not on filedocumented in this encounter Care Teams Foreman Or Supervisor And Operator Relationship Specialty Start Date End Date Manuel Bingham MD [address] [place] [address] PCP - General Family Medicine 07/31/24 documented as of this encounter
--- OUTSIDE RECORDS SUMMARY | 2024-10-28 08:26 | XMS_ITS | Encounter Summary ---
Author Organization [employer] ([place], [place], [place], [place]) Address [address] [place] [address] Care Team Providers Care Cooker Chip Name Role Phone Manuel Bingham MD Primary Care Provider +1 [phone] Encounter Details Date Type Department Care Team (Late st Contact Info) Description 03/24/2019 Transcribed Document [facility] [place] [address] [place] [address] ProviderJohn MD [address] [place] [address] Social History Tobacco Use Types Packs/Day Years Used Date Smoking Tobacco: Never Assessed Comments Unknown Sex and Gender Information Value Date Recorded Sex Assigned at Not on file Legal Sex Female 4:40 PM CDT Gender Identity Not on file Sexual Orientation Not on file documented as of this encounter Miscellaneous Notes * Cerner Conversion Note - John ProviderMD - 03/24/2019 5:07 PM FOOT TENDER ED Discharge Entered On: 03/24/2019 17:07 EST [...] 03/24/2019 17:07 EST Electronically signed by Sana, [facility] Conversion Ball Shagger Cerner at 07/15/2022 8:22 AM CDT documented in this encounter Plan of Treatment Not on file documented as of this encounter Visit Diagnoses Not on filedocumented in this encounter Care Teams Cooker Chip Relationship Specialty Start Date End Date Manuel Bingham MD [address] [place] [address] PCP - General Family Medicine 07/31/24 documented as of this encounter
--- OUTSIDE RECORDS SUMMARY | 2024-10-28 08:26 | XMS_ITS | Encounter Summary ---
Author Organization [employer] ([place], [place], [place], [place]) Address [address] [place] [address] Care Team Providers Care Buildings And Grounds Superintendent Name Role Phone Manuel Bingham MD Primary Care Provider + Encounter Details Date Type Department Care Team (Late st Contact Info) Description 02/28/2020 Transcribed Document [facility] [place] Family Medicine [facility] [place] [address] ProviderJohn MD [address] [place], [place] [id number] Social History Tobacco Use Types Packs/Day Years Used Date Smoking Tobacco: Never Assessed Comments Unknown Sex and Gender Information Value Date Recorded Sex Assigned at Not on file Legal Sex Female 4:40 PM CDT Gender Identity Not on file Sexual Orientation Not on file documented as of this encounter Miscellaneous Notes * Cerner Conversion Note - Historical MD Monika - 02/28/2020 2:04 AM COOK PICKLED MEAT Patient: JESSICA SAWYER Age: 49 years Sex: [...] Surgical history: heart cath. Endometrial Ablation. Cholecystectomy; (37438). colonoscopy. d&c. right carpal tunnel and right [...] EST Height Source Measured Height Entry Format [place] Height/Length, LAO (ft) 4 ft Height/Length LAO 11 Inch CLINICALHEIGHT 149.86 cm [place] Body Weight 42.87 kg Weight Source, ED Standing scale Weight Entry Format [place] Weight Nam[place]ian lb 190 lb CLINICALWEIGHT 86.36 kg Body [...] % 24.2 % Lymph # 1.19 K/uL [place] % 4.9 % [place] # 0.24 K/uL Eos % 0.0 % [...] SEX: 1970 / Female MRN / ACC#: [id number] / [id number] ORDERING PHYSICIAN: Ordering Provider, Update EXAM REQUESTED: [id number]--CLD CHEST FACILITY: [facility] DATE: 02/28/2020 RADIOLOGIST NAME: Vaughn Saravia CLINICAL [...] No rash, no cyanosis, capillary refill brisk VISITOR SERVICES REPRESENTATIVE: Awake alert oriented ??4, nonfocal exam Psych: [...] [facility] COVID-19 Patient Education Overview and Infographic (Namibian) (CUSTOM), Prevent the Spread of COVID-19 if You Are Sick - [facility]. Follow up with: ; [place] Within 2 to 3 days; Follow-up with Patient Resource Grain Processor at [phone] in 2 to 3 days Within 2 [...] instructions. Electronically signed by Floyd Hood Conversion Quality Control Engineering Technician Cerner at 07/15/2022 8:16 AM CDT documented in this encounter Plan of Treatment Not on file documented as of this encounter Visit Diagnoses Not on filedocumented in this encounter Care Teams Buildings And Grounds Superintendent Relationship Specialty Start Date End Date Manuel Bingham MD [address] [place] [address] PCP - General Family Medicine 07/31/24 documented as of this encounter
--- OUTSIDE RECORDS SUMMARY | 2024-10-28 08:26 | XMS_ITS | Encounter Summary ---
Author Organization [employer] ([place], [place], [place], [place]) Address [address] [place] [address] Care Team Providers Care Rigging Helper Name Role Phone Manuel Bingham MD Primary Care Provider + Encounter Details Date Type Department Care Team (Late st Contact Info) Description 05/27/2019 Transcribed Document [facility] Family Medicine [address] [place] [address] ProviderJohn MD [address] [place] [address] Social History Tobacco Use Types [...] - John ProviderMD - 05/27/2019 9:29 PM HYDROGRAPHICAL [place] [address] JESSICA SAWYER :1970 Visit Time:05/27/2019 Your Visit [...] these instructions at home: Medicines ??? Take dotl-ufa-gjaaeaa and prescription medicines only as told by [...] 03/14/2001 Document Revised: 11/13/2016 Document Reviewed: 07/10/2015 [employer] Interactive Patient Education ?? 2019 [employer]. Pharyngitis Pharyngitis is redness, pain, and swelling [...] Follow these instructions at home: ??? Take laky-efx-mcurleb and prescription medicines only as told by [...] 03/17/2006 Document Revised: 04/22/2017 Document Reviewed: 04/22/2017 [employer] Interactive Patient Education ?? 2019 [employer]. Emergency Awareness and Preventative Care STROKE [...] Assistance with quitting is available by contacting 5-682-DCXTNOW. This is a free resource providing counseling, [...] was given the opportunity to ask questions. Patient/Pan Washer Hand Name: Patient/Pan Washer Hand Signature: Relationship to Patient: Clinician/Hospital Pan Washer Hand Signature: Please Provide a Telephone Number Where You Can Be Reached: Is it Permissible To Leave a Message? Date: Electronically signed by Sana, [facility] Conversion Jewelry Repairer Cerner at 07/15/2022 8:17 AM CDT documented in this encounter Plan of Treatment Not on file documented as of this encounter Visit Diagnoses Not on filedocumented in this encounter Care Teams Rigging Helper Relationship Specialty Start Date End Date Manuel Bingham MD [address] [place] [address] PCP - General Family Medicine 07/31/24 documented as of this encounter
--- OUTSIDE RECORDS SUMMARY | 2024-10-28 08:26 | XMS_ITS | Encounter Summary ---
Author Organization [employer] ([place], [place], [place], [place]) Address [address] [place] [address] Care Team Providers Care Pipe Fitter Maintenance Name Role Phone Manuel Bingham MD Primary Care Provider + Encounter Details Date Type Department Care Team (Late st Contact Info) Description 02/28/2020 Transcribed Document [facility] [place] Family Medicine [address] [place] [address] ProviderJohn MD [address] [place] [address] Social History Tobacco Use Types [...] John Frank MD - 02/28/2020 5:51 AM [place] [address] JESSICA SAWYER :1970 Visit Time:02/27/2020 Your Visit [...] Follow Up with Follow-up with Patient Resource Molding Supervisor at [phone] in 2 to 3 days When Within [...] range between ( 1.0 and 7.0 ) [place] #: 0.24 K/uL -- Normal range between ( 0.24 and 0.82 ) [place] #: 0.00 K/uL -- Normal range between ( 0.04 and 0.54 ) [place] %: 4.9 % -- Normal range between [...] if you have questions about pets: https://www.cdc.gov/coronavirus/2019- ncov/faq.html#NXQPN58jjoxqvg Monitor your symptoms. ??? Common symptoms of [...] and need to call 911, notify the inverform machine operator that you have or think you [...] clean your hands with an alcohol-based hand dairy scientist that contains at least 60% alcohol. Clean your hands often. ??? Wash your handsoften with soap and water for at least 20 seconds. This is especially important after blowing your nose, coughing, or sneezing; going to the bathroom; and before eating or preparing food. ??? Use hand dairy scientist if soap and water are not available. Use an alcohol-based hand dairy scientist with at least 60% alcohol, covering all [...] and water or put them in the emts. Clean all high-touch surfaces everyday. ??? Clean [...] body fluids on them. ??? Use household ward helper and disinfectants. Clean the area or item [...] 07/13/2019 Document Revised: 07/16/2019 Document Reviewed: 07/13/2019 [employer]land[employer] Patient Education ?? 2020 [employer]. COVID-19: How to Protect Yourself and Others Know how it spreads ??? There is currently no vaccine to prevent coronavirus disease 2019 (COVID-19). ??? The best way to prevent illness is to avoid being exposed to this virus. ??? The virus is thought to spread mainly from izneys-qy-mxgtvp. ? Between people who are in close [...] are not readily available, use a hand dairy scientist that contains at least 60% alcohol. Cover [...] are at higher risk of getting very sick.https://www.cdc.gov/coronavirus/2019-ncov/wunq-fndnw-iqvoihvqjha/people-a a-jayhey-oeoq.html Cover your mouth and nose with a cloth face cover when around others ??? You could spread COVID-19 to others even if you do not feel sick. ??? Everyone should wear a cloth face cover when they have to go out in public, for example to the grocery store or to apple picker other necessities. ? Cloth face coverings [...] available, clean your hands with a hand dairy scientist that contains at least 60% alcohol. Clean and disinfect ??? Clean AND disinfect frequently touched surfaces daily. This includes tables, doorknobs, light switches, countertops, handles, desks, phones, keyboards, toilets, faucets, and sinks. https://www.cdc.gov/coronavirus/2019-ncov/zchhbzd-gxbqbgs-eagu/disinfecting-yo ur-home.html ??? If surfaces are dirty, clean them: Use detergent or soap and water prior to disinfection. cdc.gov/coronavirus 07/10/2019 This information is not intended to replace advice given to you by your health care provider. Make sure you discuss any questions you have with your health care provider. Document Released: 07/13/2019 Document Revised: 07/16/2019 Document Reviewed: 07/13/2019 Elsevier Patient Education ?? 2020 [employer]. COVID-19 Frequently Asked Questions COVID-19 (coronavirus disease) is an infection that is caused by a large family of viruses. Some viruses cause illness in people and others cause illness in animals like camels, cats, and bats. In some cases, the viruses that cause illness in animals can spread to humans. Where did the coronavirus come from? In February 2019, [place] told the World Health Organization (WHO) of several cases of lung disease (human respiratory illness). These cases were linked to an open seafood and livestock market in the city of [facility]. The link to the seafood and [...] and virus naming World Health Organization (WHO): www.who.int/emergencies/diseases/vjkju-ibcfwwdgjpr-8878/technical-guidance/nam fxi-our-wvlvxncuwcj-disease-(covid-2019)-xlg-gez-cwhhs-fior-owiinu-pg Who is at risk for complications from [...] relieve his or her symptoms by using qzhn-ryr-qfaqtzg medicines that treat sneezing, coughing, and runny [...] water are not available, use alcohol-based hand dairy scientist. ??? Avoid touching your face, mouth, nose, [...] (CDC): www.cdc.gov/coronavirus/2019-ncov/travelers/index.html ??? World Health Organization (WHO): www.who.int/emergencies/diseases/bvham-oesuaycwwzy-4594/travel-advice Know the risks and take action to [...] water are not available, use alcohol-based hand dairy scientist. ??? Cough or sneeze into a tissue, [...] in hot, soapy water or use a emts. Air-dry your dishes. ??? Wash laundry in [...] Organization (WHO) ??? Information and news updates: www.who.int/emergencies/diseases/skavc-wblodrlgxbn-3578 ??? Coronavirus health topic: www.who.int/health-topics/coronavirus ??? Questions and answers on COVID-19: www.who.int/news-room/q-a-detail/c-g-xcvqzgqriqkak ??? Global tracker: who.F[employer]orps [place] Academy of Pediatrics (AAP) ??? Information for families: www.healthychildren.org/Belizean/health-issues/conditions/chest-lungs/Pages/201 3-Ntxjg-Pujmndzvnap.aspx The coronavirus situation is changing rapidly. Check [...] 07/13/2019 Document Revised: 07/13/2019 Document Reviewed: 07/13/2019 Nextlanding Patient Education ?? 2020 [employer]land[employer]. Emergency Awareness and Preventative Care STROKE [...] Assistance with quitting is available by contacting 6-610-VCENNOW. This is a free resource providing counseling, support, and referral. Or you may contact your personal physician. [place] Suicide Prevention Lifeline: The National Suicide Prevention [...] was given the opportunity to ask questions. Patient/Railroad Baggage Porter Name: Patient/Railroad Baggage Porter Signature: Relationship to Patient: Clinician/Hospital Railroad Baggage Porter Signature: Please Provide a Telephone Number Where You Can Be Reached: Is it Permissible To Leave a Message? Date: Electronically signed by Interface, [facility] Conversion Supervisor Drilling And Shooting Cerner at 07/15/2022 8:27 AM CDT documented in this encounter Plan of Treatment Not on file documented as of this encounter Visit Diagnoses Not on filedocumented in this encounter Care Teams Pipe Fitter Maintenance Relationship Specialty Start Date End Date Manuel Bingham MD [address] [place] [address] PCP - General Family Medicine 07/31/24 documented as of this encounter
--- OUTSIDE RECORDS SUMMARY | 2024-10-28 08:26 | XMS_ITS | Encounter Summary ---
Author Organization [employer] ([place], [place], [place], [place]) Address [address] [place] [address] Care Team Providers Care Geological Scout Name Role Phone Manuel Bingham MD Primary Care Provider + Encounter Details Date Type Department Care Team (Late st Contact Info) Description 05/27/2019 Transcribed Document [facility] [place] Family Medicine [place] [address] ProviderJohn MD [address] [place], [place] [address] Social History Tobacco Use Types Packs/Day Years Used Date Smoking Tobacco: Never Assessed Comments Unknown Sex and Gender Information Value Date Recorded Sex Assigned at Not on file Legal Sex Female 4:40 PM CDT Gender Identity Not on file Sexual Orientation Not on file documented as of this encounter Miscellaneous Notes * Cerner Conversion Note - John ProviderMD - 05/27/2019 6:13 PM SHAFT SINKER ED Triage Entered On: 05/27/2019 18:35 EST [...] EST DCP GENERIC CODE Tracking Group : [facility] ED [facility] LIS VASQUEZ RN - 05/27/2019 18:33 [...] 05/27/2019 18:35:50 EST) Problems(Active) Anxiety (SNOMED CT :98225908 ) Name of Problem: Anxiety ; Recorder: Pearl Espino RN; Confirmation: Confirmed ; Classification: Medical ; Code: [id number] ; Contributor System: PostiniChart ; Last Updated: 12/19/2016 10:22 EDT ; Life Cycle Date: 12/22/2015 ; Life Cycle Status: Active ; Vocabulary: SNOMED CT Endometriosis (SNOMED CT :2133653246 ) Name of Problem: Endometriosis ; Recorder: Pearl Espino RN; Confirmation: Confirmed ; Classification: Medical ; Code: 2792296179 ; Contributor System: PowerChart ; Last Updated: 12/22/2015 6:56 EDT ; Life Cycle Date: 12/22/2015 ; Life Cycle Status: Active ; Vocabulary: SNOMED CT HTN (SNOMED CT :8145938477 ) Name of Problem: HTN ; Recorder: Pearl Espino RN; Confirmation: Confirmed ; Classification: Medical ; Code: [id number] ; Contributor System: PostiniChart ; Last Updated: 09/30/2016 16:39 EDT ; Life Cycle Date: 12/22/2015 ; Life Cycle Status: Active ; Vocabulary: SNOMED CT S/P hysterectomy (SNOMED CT :555849689 ) Name of Problem: S/P hysterectomy ; Recorder: BELIA VELÁZQUEZ RN; Confirmation: Confirmed ; Classification: Medical ; Code: [id number] ; Contributor System: PowerChart ; Last Updated: [...] PNED ; Probability: 0 ; Diagnosis Code: [id number] ED Height and Weight Height Source : Stated Height Entry Format : [place] Height, Feet : 5 ft(Converted to: 152 cm, 60 Inch) Height, Inches : 0 Inch(Converted to: 0 ft 0 Inch, 0.00 cm) Clinical Height : 152.4 cm Weight Source, ED : Critical estimated dosing weight Weight Entry Format : [place] Weight, Pounds : 193 lb Clinical Dosing Weight : 87.73 kg Body Surface Area (BSA) : 1.84 m2 Body Mass Index : 37.8 kg/m2 (HI) [place] Body Weight (IBW) : 45.16 kg LIS VASQUEZ RN - 05/27/2019 18:33 EST documented in this encounter Plan of Treatment Not on file documented as of this encounter Visit Diagnoses Not on filedocumented in this encounter Care Teams Geological Scout Relationship Specialty Start Date End Date Manuel Bingham MD [address] [place] [address] PCP - General Family Medicine 07/31/24 documented as of this encounter
--- OUTSIDE RECORDS SUMMARY | 2024-10-28 08:26 | XMS_ITS | Encounter Summary ---
Author Organization [employer] ([place], [place], [place], [place]) Address [address] [place] [address] Care Team Providers Care Middle School Sports Coach Name Role Phone Manuel Bingham MD Primary Care Provider [phone] Encounter Details Date Type Department Care Team (Late st Contact Info) Description 03/24/2019 Transcribed Document [facility] [place] Family Medicine [address] [place] [address] ProviderJohn MD [address] [place] [address] Social History Tobacco Use Types Packs/Day Years Used Date Smoking Tobacco: Never Assessed Comments Unknown Sex and Gender Information Value Date Recorded Sex Assigned at Not on file Legal Sex Female 4:40 PM CDT Gender Identity Not on file Sexual Orientation Not on file documented as of this encounter Miscellaneous Notes * Cerner Conversion Note - Historical ProviderMD - 03/24/2019 4:15 PM JAMMER HOOKER Pain Assessment Entered On: 03/24/2019 17:06 EST [...] on filedocumented in this encounter Care Teams Middle School Sports Coach Relationship Specialty Start Date End Date Manuel Bingham MD [address] [place] [address] PCP - General Family Medicine 07/31/24 documented as of this encounter
--- OUTSIDE RECORDS SUMMARY | 2024-10-28 08:26 | XMS_ITS | Encounter Summary ---
Author Organization [employer] ([place], [place], [place], [place]) Address [address] [place] [address] Care Team Providers Care Certified Alcohol Counselor Name Role Phone Manuel Bingham MD Primary Care Provider + Encounter Details Date Type Department Care Team (Late st Contact Info) Description 05/27/2019 Transcribed Document [facility] [place] [address] [place] [address] ProviderJohn MD [address] [place] [address] Social History Tobacco Use Types Packs/Day Years Used Date Smoking Tobacco: Never Assessed Comments Unknown Sex and Gender Information Value Date Recorded Sex Assigned at Not on file Legal Sex Female 4:40 PM CDT Gender Identity Not on file Sexual Orientation Not on file documented as of this encounter Miscellaneous Notes * Cerner Conversion Note - Historical ProviderMD - 05/27/2019 6:13 PM WASTE PAPER HAMMERMILL OPERATOR ED Assessment Entered On: 05/27/2019 19:43 EST [...] Communication Barrier : None Primary Language : [place] Any Spiritual/Cultural Needs or Requests : No [...] - 05/27/2019 19:43 EST Electronically signed by [facility], [facility] Conversion Vehicle Monitor Technician Cerner at 07/15/2022 8:16 AM CDT documented in this encounter Plan of Treatment Not on file documented as of this encounter Visit Diagnoses Not on filedocumented in this encounter Care Teams Certified Alcohol Counselor Relationship Specialty Start Date End Date Manuel Bingham MD [address] [place] [address] PCP - General Family Medicine 07/31/24 documented as of this encounter
--- OUTSIDE RECORDS SUMMARY | 2024-10-28 08:26 | XMS_ITS | Encounter Summary ---
Author Organization [employer] ([place], [place], [place], [place]) Address [address] [place] [address] Care Team Providers Care Acute Care Certified Nursing Assistant Name Role Phone Manuel Bingham MD Primary Care Provider +1 Encounter Details Date Type Department Care Team (Late st Contact Info) Description 05/27/2019 Transcribed Document [facility] [place] Family Medicine [address] [place] [address] ProviderJohn MD [address] [place] [address] Social History Tobacco Use Types Packs/Day Years Used Date Smoking Tobacco: Never Assessed Comments Unknown Sex and Gender Information Value Date Recorded Sex Assigned at Not on file Legal Sex Female 4:40 PM CDT Gender Identity Not on file Sexual Orientation Not on file documented as of this encounter Miscellaneous Notes * Cerner Conversion Note - John ProviderMD - 05/27/2019 8:32 PM MEAT COUNTER CLERK Electronically signed by [facility] Conversion Database Administration Associate Cerner at 07/15/2022 8:17 AM CDT documented in this encounter Plan of Treatment Not on file documented as of this encounter Visit Diagnoses Not on filedocumented in this encounter Care Teams Acute Care Certified Nursing Assistant Relationship Specialty Start Date End Date Manuel Bingham MD [address] [place] [address] PCP - General Family Medicine 07/31/24 documented as of this encounter
--- OUTSIDE RECORDS SUMMARY | 2024-10-28 08:27 | XMS_ITS | Encounter Summary ---
Author Organization Healthcare Address [address] [place] [address] Care Team Providers Care Solar Sales Ambassador Name Role Phone Arben Rao MD Primary Care Provider + [phone] Adeola Camara MD Unavailable Encounter Details Date Type Department Care Team (Late st Contact Info) Description 09/20/2024 Orders Only [facility] Sleep Disorder Center [address] [place] [address] Nicki Moeller Social History Tobacco [...] Procedure Name Priority Date/Time Associated Diagnosis Comments [facility] ORDER Routine 09/20/2024 10:07 AM EDT documented in this encounter Results * DME Order (09/20/2024 10:07 AM EDT) [facility] SUPPLIER NAME [facility] SUPPLIER PHONE [facility] [...] 09/20/2024 10:0 7 AM EDT Rosita Sutton INSPECTION AND TESTING SUPERVISOR DME ORDERABLES Final R esult [facility] [...] documented as of this encounter Care Teams Solar Sales Ambassador Relationship Specialty Start Date End Date Arben Rao MD [address] [place] [address] PCP - General 09/04/21 Adeola Camara MD [address] [facility] [address] [place] [address] Surgeon Neurosurgery 09/04/21 documented as of this encounter
--- OUTSIDE RECORDS SUMMARY | 2024-10-28 08:27 | XMS_ITS | Encounter Summary ---
Author Organization [employer] ([place], [place], [place], [place]) Address [address] [place] [address] Care Team Providers Care Certified Orthotist/Pedorthist Name Role Phone Manuel Bingham MD Primary Care Provider + Encounter Details Date Type Department Care Team (Late st Contact Info) Description 03/24/2019 Transcribed Document [facility] [place] Family Medicine [address] [place] [address] ProviderJohn MD [address], [place] [address] Social History Tobacco Use Types Packs/Day Years Used Date Smoking Tobacco: Never Assessed Comments Unknown Sex and Gender Information Value Date Recorded Sex Assigned at Not on file Legal Sex Female 4:40 PM CDT Gender Identity Not on file Sexual Orientation Not on file documented as of this encounter Miscellaneous Notes * Cerner Conversion Note - Historical ProviderMD - 03/24/2019 2:47 PM CARD PUNCHER Patient: JESSICA SAWYER Age: 48 years Sex: Female : 1970 Associated Diagnoses: Chest pain, midsternal Author: PALLAVI LUU, DNA ANALYST-EMR Basic Information Time seen: Date & time 03/24/2019 14:40:00. History source: Patient. Arrival mode: Private vehicle. History limitation: None. Additional information: Chief Complaint from Nursing Triage Note : Chief Complaint 03/24/2019 14:37 EST Chief Complaint C/O CP X1 HR DIRECTOR CHEMISTRY, 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 [...] Surgical history: heart cath. Endometrial Ablation. Cholecystectomy; (13262). colonoscopy. d&c. right carpal tunnel and right [...] EST Height Source Stated Height Entry Format [place] Height/Length, MARTIN[place] (ft) 5 ft Height/Length [place] 1 Inch CLINICALHEIGHT 154.94 cm [place] Body Weight 47.45 kg Weight Source, ED Standing scale Weight Entry Format [place] Weight Romanian lb 200 lb CLINICALWEIGHT 90.91 kg Body [...] Assessment: ED C-SSRS: ED Clinical Reconciliation: ED member of the legislative council: EKG: Saline Lock Insert: Ordered (Dispatched) CBC [...] % 30.3 % Lymph # 1.84 K/uL [place] % 8.1 % [place] # 0.49 K/uL Eos % 2.0 % Eos # 0.12 K/uL Baso % 0.8 % Baso # 0.05 K/uL Slide Review No PT 9.8 Second(s) INR 1.0 , Lab results : Lab Results 03/24/2019 16:29 EST Troponin I Ultra <0.015 ng/mL . Radiology results: Radiology Results (Last 48 hours) [id number] -- 03/24/2019 14:29 CR Chest 1 Vw [...] Condition: Stable. Disposition: Medically cleared. Prescriptions: Prescription Automation Analyst Pharmacy: naproxen 500 mg oral tablet (Prescribe): [...] filedocumented in this encounter Care Teams Certified Orthotist/Pedorthist Relationship Specialty Start Date End Date Manuel Bingham MD [address] [place] [phone] PCP - General Family Medicine 07/31/24 documented as of this encounter
--- OUTSIDE RECORDS SUMMARY | 2024-10-28 08:27 | XMS_ITS | Encounter Summary ---
Author Organization [employer] ([place], [place], [place], [place]) Address [address] [place] [address] Care Team Providers Care Clay Processing Factory Worker Name Role Phone Manuel Bingham MD Primary Care Provider + Encounter Details Date Type Department Care Team (Late st Contact Info) Description 03/24/2019 Transcribed Document [facility] [place] Family Medicine [address] [place] [address] ProviderJohn MD [address] [place] [address] Social History Tobacco Use Types Packs/Day Years Used Date Smoking Tobacco: Never Assessed Comments Unknown Sex and Gender Information Value Date Recorded Sex Assigned at Not on file Legal Sex Female 4:40 PM CDT Gender Identity Not on file Sexual Orientation Not on file documented as of this encounter Miscellaneous Notes * Cerner Conversion Note - Historical ProviderMD - 03/24/2019 2:29 PM STRAIGHT EDGER [place] Suicide Severity Rating Scale (C-SSRS) Entered On: 03/24/2019 15:23 EST Performed On: 03/24/2019 15:21 EST by LAZARO KHALIL RN-Resource [place] Suicide Severity Rating Scale (C-SSRS) CSSRS Past [...] on filedocumented in this encounter Care Teams Clay Processing Factory Worker Relationship Specialty Start Date End Date Manuel Bingham MD [address] [place] [address] PCP - General Family Medicine 07/31/24 documented as of this encounter
--- OUTSIDE RECORDS SUMMARY | 2024-10-28 08:27 | XMS_ITS | Encounter Summary ---
Author Organization [employer] ([place], [place], [place], [place]) Address [address] [place] [address] Care Team Providers Care Draw Frame Operator Name Role Phone Manuel Bingham MD Primary Care Provider [phone] Encounter Details Date Type Department Care Team (Late st Contact Info) Description 03/24/2019 Transcribed Document [facility] [place] Family Medicine [address] [place] [address] ProviderJohn MD [address] [place], [place] [address] Social History Tobacco Use Types Packs/Day Years Used Date Smoking Tobacco: Never Assessed Comments Unknown Sex and Gender Information Value Date Recorded Sex Assigned at Not on file Legal Sex Female 4:40 PM CDT Gender Identity Not on file Sexual Orientation Not on file documented as of this encounter Miscellaneous Notes * Cerner Conversion Note - Historical ProviderMD - 03/24/2019 2:29 PM FRONT DESK ED Assessment Entered On: 03/24/2019 15:23 EST [...] Communication Barrier : None Primary Language : [place] Any Spiritual/Cultural Needs or Requests : No [...] Symptoms : None Nail Bed Color : [place] Chest Pain : No LAZARO KHALIL RN-Resource [...] on filedocumented in this encounter Care Teams Draw Frame Operator Relationship Specialty Start Date End Date Manuel Bingham MD [address] [place] [address] PCP - General Family Medicine 07/31/24 documented as of this encounter
--- OUTSIDE RECORDS SUMMARY | 2024-10-28 08:27 | XMS_ITS | Encounter Summary ---
Author Organization Healthcare Address [address] [place] [address] Care Team Providers Care Train Control Electronic Technician Name Role Phone Arben Rao MD Primary Care Provider + [phone] Adeola Camara MD Unavailable Encounter Details Date Type Department Care Team (Late st Contact Info) Description 09/14/2024 Orders Only [facility] Sleep Disorder Center [address] [place] [address] Nicki Meoller Social History Tobacco Use Types Packs/Day Years [...] documented as of this encounter Care Teams Train Control Electronic Technician Relationship Specialty Start Date End Date Arben Rao MD [address] [place] [address] PCP - General 09/04/21 Adeola Camara MD [address] [address] Surgeon Neurosurgery 09/04/21 documented as of this encounter
--- OUTSIDE RECORDS SUMMARY | 2024-10-28 08:27 | XMS_ITS | Encounter Summary ---
Author Organization [employer] ([place], [place], [place], [place]) Address [address] [place] [address] Care Team Providers Care Maintenance Machine Repairer Name Role Phone Manuel Bingham MD Primary Care Provider +1 Encounter Details Date Type Department Care Team (Late st Contact Info) Description 08/30/2018 Transcribed Document [facility] [place] Family Medicine [facility] [place] [address] ProviderJohn MD [address] [place] [address] Social History Tobacco Use Types Packs/Day Years [...] Kaitlin Campbell, WILLEM - 08/30/2018 22:05 EDT documented in this encounter Plan of Treatment Not on file documented as of this encounter Visit Diagnoses Not on filedocumented in this encounter Care Teams Maintenance Machine Repairer Relationship Specialty Start Date End Date Manuel Bingham MD [address] [place] [address] PCP - General Family Medicine 07/31/24 documented as of this encounter
--- OUTSIDE RECORDS SUMMARY | 2024-10-28 08:27 | XMS_ITS | Encounter Summary ---
Author Organization Healthcare Address [address] [place] [address] Care Team Providers Care Permit Review Assistant Name Role Phone rAben Rao MD Primary Care Provider + [phone] Adeola Camara MD Unavailable Encounter Details Date Type Department Care Team (Late st Contact Info) Description 09/02/2024 Results Follow-Up [facility] Sleep Disorder Center [address] [place] [address] Esteban Sutton, BERNARDO [address] [place] [address] Social History Tobacco Use Types [...] documented as of this encounter Care Teams Permit Review Assistant Relationship Specialty Start Date End Date Arben Rao MD [address] [place] [address] PCP - General 09/04/21 Adeola Camara MD [address] [facility] [address] [place] [address] Surgeon Neurosurgery 09/04/21 documented as of this encounter
--- OUTSIDE RECORDS SUMMARY | 2024-10-28 08:27 | XMS_ITS | Encounter Summary ---
Author Organization [employer] ([place], [place], [place], [place]) Address [address] [place] [address] Care Team Providers Care Analysis Consultant Name Role Phone Manuel Bingham MD Primary Care Provider + Encounter Details Date Type Department Care Team (Late st Contact Info) Description 03/24/2019 Transcribed Document [facility] [place] Family Medicine [address] [place] [address] ProviderJohn MD [address] [place] [address] Social History Tobacco Use Types Packs/Day [...] John Frank MD - 03/24/2019 4:56 PM NURSING INFORMATICS SPECIALIST CR Chest 1 Vw Portable Ordered: 03/24/2019 Modified Reason for Exam: chest pain 03/24/2019 15:54 03/24/2019 16:56 (BREANA LUU, CONSTRUCTION DIRECTOR-EMR) Reviewed by Provider, No further action required x1 documented in this encounter Plan of Treatment Not on file documented as of this encounter Visit Diagnoses Not on filedocumented in this encounter Care Teams Analysis Consultant Relationship Specialty Start Date End Date Manuel Bingham MD [address] [place] [phone] PCP - General Family Medicine 07/31/24 documented as of this encounter
--- OUTSIDE RECORDS SUMMARY | 2024-10-28 08:27 | XMS_ITS | Encounter Summary ---
Author Organization Healthcare Address [address] [address] Care Team Providers Care Delicatessen Slicer Name Role Phone Arben Rao MD Primary Care Provider + [phone] Adeola Camara MD Unavailable Encounter Details Date Type Department Care Team (Latest Contact Info) Description 08/25/2024 Outside Procedure [facility] [address] [address] Madeleine Mireles MD [address] [facility] [address] [address] JANAE (obstructive sleep apnea) (Primary Dx) [...] documented as of this encounter Care Teams Delicatessen Slicer Relationship Specialty Start Date End Date Arben Rao MD [address] [place] [address] PCP - General 09/04/21 Adeola Camara MD [address] [facility] [address] [address] Surgeon Neurosurgery 09/04/21 documented as of this encounter
--- OUTSIDE RECORDS SUMMARY | 2024-10-28 08:27 | XMS_ITS | Clinical Summary ---
Author Organization Healthcare Address [address] [place] [address] Care Team Providers Care Tractor Trailer Technician Name Role Phone Arben Rao MD Primary Care Provider [phone] Adeola Camara MD Unavailable Allergies No known [...] Department Care Team Description 09/20/2024 Orders Only [facility] Sleep Disorder [address] [place] [address] Nicki Moeller 09/14/2024 Orders Only [facility] Sleep Disorder [address] [place] [address] Nicki Moeller 09/02/2024 Results Follow-Up [facility] Sleep Disorder [address] [place] [address] Rosita Sutton APRN 08/25/2024 8:15 PM EDT Clinical Support [facility] Sleep Disorder [address] [place] [address] David Gupta Snoring; History of sleep apnea; At risk for central sleep apnea; Excessive daytime sleepiness; Severe obesity (BMI >= 40) (CMS/HCC) 08/25/2024 Outside [facility] Sleep Disorder Center [address] [place] [address] Madeleine Mireles MD JANAE (obstructive [...] 2020 [facility]-Zoster Vaccines (1 of 2) 2020 [id number] Vaccine (1 - season) 2023 [facility]-Influenza Vaccine [...] Procedure Name Priority Date/Time Associated Diagnosis Comments [facility] ORDER Routine 09/20/2024 10:07 AM EDT ADULT SLEEP STUDY OVERNIGHT POLYSOMNOGRAPHY Routine 08/25/2024 8:49 PM EDT Snoring History of sleep apnea At risk for central sleep apnea Excessive daytime sleepiness Severe obesity (BMI >= 40) ([facility] from Last 3 Months Results * DME Order (09/20/2024 10:07 AM EDT) [facility] SUPPLIER NAME Diveboard [facility] DME [facility] SUPPLIER PHONE [facility] DELIVERY STATUS Completed [facility] DELIVERY NOTE [facility] REQUESTED DELIVERY DATE 09/20/2024 [facility] ACTUAL DELIVERY DATE 09/20/[address] [facility] D[facility] ITEM DESCRIPTION CPAP Machine, Resmed [facility] Comment: Qty: 1 Auto Min Pressure: 6 cm Auto Max Pressure: 16 cm Oxygen Usage: None [facility] ITEM DESCRIPTION PAP Mask, Fit to Comfort, 1 per [address] [facility] Comment:Qty: 1 [facility] ITEM DESCRIPTION PAP Headgear, 1 per [address] [facility] Comment:Qty: [address] [facility] ITEM DESCRIPTION PAP Humidifier, Heated [facility] Comment:Qty: [address] [facility] ITEM DESCRIPTION PAP Mask Interface Cushion, Fit to Comfort (A7031- 1 per month/ A7032- 2 per month/ A7033 - 2 per month) [facility] Comment:Qty: [address] [facility] ITEM DESCRIPTION Disposable PAP Filter, 2 per [address] [facility] Comment:Qty: [address] [facility] ITEM DESCRIPTION Non-Disposable PAP Filter, 1 per [address] [facility] Comment:Qty: [address] [facility] ITEM DESCRIPTION PAP Machine Tubing, Non-Heated, 1 per [address] [facility] Comment:Qty: [address] [facility] ITEM DESCRIPTION PAP Monitoring, Per device availability [facility] Comment:Qty: [address] [facility] ITEM DESCRIPTION Humidifier Water Chamber, 1 per [address] [facility] Comment:Qty: [address] [facility] ITEM DESCRIPTION PAP Chinstrap, 1 per [address] [facility] Comment:Qty: 1 09/20/2024 10:0 7 AM EDT Rosita Sutton BASIN CLEANER DME ORDERABLES Final R esult [facility] D[facility] * Adult Sleep Study Overnight Polysomnography (08/25/2024 8:49 PM EDT) 08/25/2024 8:49 PM EDT Narrative [facility] - 09/01/2024 3:57 PM EDT General Information:See Media Viewer for report. This statement produced by [employer] us Rosita Sutton [facility] ORDERABLES Final Result [facility] from Last 3 Months Insurance [facility] MEDICARE Care Teams Tractor Trailer Technician Relationship Specialty Start Date End Date Arben Rao MD [address] [place] [address] PCP - General 09/04/21 Adeola Camara MD [id number] [place] [phone] Surgeon Neurosurgery 09/04/21
--- OUTSIDE RECORDS SUMMARY | 2024-10-28 08:27 | XMS_ITS | Encounter Summary ---
Author Organization [employer] ([place], [place], [place], [place]) Address [address] [place] [address] Care Team Providers Care Database Marketing Manager Name Role Phone Manuel Bingham MD Primary Care Provider + Encounter Details Date Type Department Care Team (Late st Contact Info) Description 03/24/2019 Transcribed Document [facility] [place] Family Medicine [address] [place] [address] ProviderJohn MD [address] [place], [place] [id number] Social History Tobacco Use Types Packs/Day Years Used Date Smoking Tobacco: Never Assessed Comments Unknown Sex and Gender Information Value Date Recorded Sex Assigned at Not on file Legal Sex Female 4:40 PM CDT Gender Identity Not on file Sexual Orientation Not on file documented as of this encounter Miscellaneous Notes * Cerner Conversion Note - Historical ProviderMD - 03/24/2019 2:29 PM [facility]OD[facility]ER ED Triage Entered On: 03/24/2019 14:39 EST Performed On: 03/24/2019 14:37 EST by DALE FUENTES RN ED Triage Across the Room Chief Complaint : 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 CP STARTED AT REST, + SOA Triage Date/Time : 03/24/2019 14:37 EST DALE FUENTES RN - 03/24/2019 14:37 EST DCP GENERIC CODE Tracking Acuity : 2 - Emergent Tracking Group : [facility] ED East DALE FUENTES RN - 03/24/2019 [...] 03/24/2019 14:39:04 EST) Problems(Active) Anxiety (SNOMED CT :26279090 ) Name of Problem: Anxiety ; Recorder: Pearl Espino RN; Confirmation: Confirmed ; Classification: Medical ; Code: [id number] ; Contributor System: Roundrate ; Last Updated: 12/19/2016 10:22 EDT ; Life Cycle Date: 12/22/2015 ; Life Cycle Status: Active ; Vocabulary: SNOMED CT Endometriosis (SNOMED CT :7219256550 ) Name of Problem: Endometriosis ; Recorder: Pearl Espino RN; Confirmation: Confirmed ; Classification: Medical ; Code: [id number] ; Contributor System: PowerChart ; Last Updated: 12/22/2015 6:56 EDT ; Life Cycle Date: 12/22/2015 ; Life Cycle Status: Active ; Vocabulary: SNOMED CT HTN (SNOMED CT :3615809212 ) Name of Problem: HTN ; Recorder: Pearl Espino RN; Confirmation: Confirmed ; Classification: Medical ; Code: 2553479520 ; Contributor System: Roundrate ; Last Updated: 09/30/2016 16:39 EDT ; Life Cycle Date: 12/22/2015 ; Life Cycle Status: Active ; Vocabulary: SNOMED CT S/P hysterectomy (SNOMED CT :767464902 ) Name of Problem: S/P hysterectomy ; Recorder: BELIA VELÁZQUEZ RN; Confirmation: Confirmed ; Classification: Medical ; Code: 764796575 ; Contributor System: PowerChart ; Last Updated: 07/19/2018 19:29 EDT ; Life Cycle Date: 07/19/2018 ; Life Cycle Status: Active ; Vocabulary: SNOMED CT Diagnoses(Active) Chest pain Date: 03/24/2019 ; Diagnosis Type: Reason For Visit ; Confirmation: Complaint of ; Clinical Dx: Chest pain ; Classification: Medical ; Clinical Service: Emergency medicine ; Code: PNED ; Probability: 0 ; Diagnosis Code: [id number] ED Height and Weight Height Source : Stated Height Entry Format : [place] Height, Feet : 5 ft(Converted to: 152 cm, 60 Inch) Height, Inches : 1 Inch(Converted to: 0 ft 1 Inch, 2.54 cm) Clinical Height : 154.94 cm Weight Source, ED : Standing scale Weight Entry Format : [place] Weight, Pounds : 200 lb Clinical Dosing Weight : 90.91 kg Body Surface Area (BSA) : 1.89 m2 Body Mass Index : 37.9 kg/m2 (HI) [place] Body Weight (IBW) : 47.45 kg DALE FUENTES RN - 03/24/2019 14:37 EST Electronically signed by Sana [facility] Conversion Professor Of Theatre Cerner at 07/15/2022 8:10 AM CDT documented in this encounter Plan of Treatment Not on file documented as of this encounter Visit Diagnoses Not on filedocumented in this encounter Care Teams Database Marketing Manager Relationship Specialty Start Date End Date Manuel Bingham MD [address] [place] [address] PCP - General Family Medicine 07/31/24 documented as of this encounter
--- OUTSIDE RECORDS SUMMARY | 2024-10-28 08:27 | XMS_ITS | Encounter Summary ---
Author Organization [employer] ([place], [place], [place], [place]) Address [address] [place] [address] Care Team Providers Care Personal Care Attendant Name Role Phone Manuel Bingham MD Primary Care Provider [phone] Encounter Details Date Type Department Care Team (Late st Contact Info) Description 03/24/2019 Transcribed Document [facility] [place] [address] [place] [address] ProviderJohn MD [address] [place] [address] Social History Tobacco Use Types Packs/Day Years Used Date Smoking Tobacco: Never Assessed Comments Unknown Sex and Gender Information Value Date Recorded Sex Assigned at Not on file Legal Sex Female 4:40 PM CDT Gender Identity Not on file Sexual Orientation Not on file documented as of this encounter Miscellaneous Notes * Cerner Conversion Note - John ProviderMD - 03/24/2019 4:23 PM BLANKER PRESS OPERATOR Electronically signed by [facility] Conversion Rn Lactation Cerner at 07/15/2022 8:16 AM CDT documented in this encounter Plan of Treatment Not on file documented as of this encounter Visit Diagnoses Not on filedocumented in this encounter Care Teams Personal Care Attendant Relationship Specialty Start Date End Date Manuel Bingham MD [address] [place] [address] PCP - General Family Medicine 07/31/24 documented as of this encounter
--- OUTSIDE RECORDS SUMMARY | 2024-10-28 08:28 | XMS_ITS | Encounter Summary ---
Author Organization [employer] ([place], [place], [place], [place]) Address [address] [place] [address] Care Team Providers Care Golf Course Laborer Name Role Phone Manuel Bingham MD Primary Care Provider [phone] Encounter Details Date Type Department Care Team (Late st Contact Info) Description 08/30/2018 Transcribed Document [facility] [place] Family Medicine [facility] [place] [address] ProviderJohn MD [address] [place] [address] Social History Tobacco Use Types Packs/Day Years [...] Surgical history: heart cath. Endometrial Ablation. Cholecystectomy; (22961). colonoscopy. d&c. right carpal tunnel and right [...] EDT Height Source Stated Height Entry Format [place] Height/Length, [place] (ft) 5 ft Height/Length [place] 0 Inch CLINICALHEIGHT 152.4 cm Dick[place] Body Weight 45.16 kg Weight Source, ED Standing scale Weight Entry Format [place] Weight [place] lb 190 lb CLINICALWEIGHT 86.36 kg Body Surface Area (BSA) 1.83 m2 Body Mass Index 37.2 kg/m2 HI . Oxygen Saturation 08/30/2018 20:13 EDT Oxygen Saturation 96 % . General: Alert, no acute distress. [place] coma scale: Total score: Total score: 15. [...] knee left w crutches Splint Location: Applioed by:nuclear medicine chief technologist Supervised by: Patient is neurovascularly intact status [...] Medical Plan Condition: Improved, Stable. Prescriptions: Prescription [facility]: meloxicam 7.5 mg oral tablet (Prescribe): [...] given the following educational materials: Back Exercises, Swvz-cz-Jlna, Knee Sprain, Adult. Follow up with: ZOILA [...] on filedocumented in this encounter Care Teams Golf Course Laborer Relationship Specialty Start Date End Date Manuel Bingham MD [address] [place] [address] PCP - General Family Medicine 07/31/24 documented as of this encounter
--- OUTSIDE RECORDS SUMMARY | 2024-10-28 08:28 | XMS_ITS | Encounter Summary ---
Author Organization [employer] ([place], [place], [place], [place]) Address [address] [place] [address] Care Team Providers Care Diagnostic Tech Name Role Phone Manuel Bingham MD Primary Care Provider [phone] Encounter Details Date Type Department Care Team (Late st Contact Info) Description 07/19/2018 Transcribed Document [facility] [place] Medicine [address] [place] [address] ProviderJohn MD [address] [place] [address] Social History Tobacco Use Types Packs/Day Years [...] Communication Barrier : None Primary Language : Yemeni Any Spiritual/Cultural Needs or Requests : No [...] 19:39 EDT Electronically signed by Sana [facility] Conversion Director Of Outreach Cerner at 07/15/2022 8:02 AM CDT documented in this encounter Plan of Treatment Not on file documented as of this encounter Visit Diagnoses Not on filedocumented in this encounter Care Teams Diagnostic Tech Relationship Specialty Start Date End Date Manuel Bingham MD [address] [place] [address] PCP - General Family Medicine 07/31/24 documented as of this encounter
--- OUTSIDE RECORDS SUMMARY | 2024-10-28 08:28 | XMS_ITS | Encounter Summary ---
Author Organization [employer] ([place], [place], [place], [place]) Address [address] [place] [address] Care Team Providers Care Ampoule Filler Name Role Phone Manuel Bingham MD Primary Care Provider + Encounter Details Date Type Department Care Team (Late st Contact Info) Description 07/19/2018 Transcribed Document [facility] [place] [facility] [place] [address] ProviderJohn MD [address] [place] [address] Social History Tobacco Use Types Packs/Day [...] Frank MD - 07/19/2018 9:07 [place] [address] JESSICA SAWYER :1970 Visit Time:07/19/2018 Your Visit Summary Your Care Team Admitting Physician - SAMUEL DONOHUE MD-EMR Attending Physician - SAMUEL DONOHUE MD-EMR Primary Care Physician - GINA EVANGELISTA MD-OBG INGRID, NO DR Referring Physician - INGRID, SELF REFERRED Your Diagnosis Back pain Lumbar back pain Patient Portal Reminder: Be sure to sign up for the [employer] patient portal, which gives you 21/10 access to your medical information ??? including these discharge instructions ??? using your computer, smartphone, or tablet. Just go to [employer] to get started. Questions? Call . You [...] REPORT YOUR PAIN IS WORSE Where: [address] [facility] [address] [place] [address] [facility] (1) Follow Up with NO PRIM DR QUINTERO When Within 2 to 3 days Allergies No Known Medication Allergies Immunizations This Visit No Immunizations Found Medications What How Much When Instructions Next Dose New acetaminophen-hydrocodone ([place] 5 mg-325 mg oral tablet) 1 Tablet(s) [...] and flexible. ??? Do notsit, drive, or industrial automation engineer one place for more than 30 minutes. [...] Assistance with quitting is available by contacting 7-028-IFLMNOW. This is a free resource providing counseling, support, and referral. Or you may contact your personal physician. [place] Suicide Prevention Lifeline: The National Suicide Prevention [...] was given the opportunity to ask questions. Patient/Torpedoman'S Mate Name: Patient/Torpedoman'S Mate Signature: Relationship to Patient: Clinician/Hospital Torpedoman'S Mate Signature: Please Provide a Telephone Number Where You Can Be Reached: Is it Permissible To Leave a Message? Date: Electronically signed by Interface, [facility] Conversion Vp Business Development Cerner at 07/15/2022 8:30 AM CDT documented in this encounter Plan of Treatment Not on file documented as of this encounter Visit Diagnoses Not on filedocumented in this encounter Care Teams Ampoule Filler Relationship Specialty Start Date End Date Manuel Bingham MD [address] [place] [address] PCP - General Family Medicine 07/31/24 documented as of this encounter
--- OUTSIDE RECORDS SUMMARY | 2024-10-28 08:28 | XMS_ITS | Encounter Summary ---
Author Organization [employer] ([place], [place], [place], [place]) Address [address] [place] [address] Care Team Providers Care Inventory Worker Name Role Phone Manuel Bingham MD Primary Care Provider + Encounter Details Date Type Department Care Team (Late st Contact Info) Description 03/24/2019 Transcribed Document [facility] [place] Family Medicine [address] [place] [address] ProviderJohn MD [address] [place] [address] Social History Tobacco Use Types [...] - John ProviderMD - 03/24/2019 5:07 [place] [address] JESSICA SAWYER :1970 Visit Time:03/24/2019 Your Visit [...] for as needed for pain Pickup at [facility]/pharmacy #[id number] Pharmacy Information [facility]/pharmacy #[id number]: [address] [place], [place] [id number] [phone] The home medications listed are only as [...] range between ( 1.0 and 7.0 ) [place] #: 0.49 K/uL -- Normal range between ( 0.24 and 0.82 ) Eos #: 0.12 K/uL -- Normal range between ( 0.04 and 0.54 ) [place] %: 8.1 % -- Normal range between [...] you start to feel better. ??? Take emvf-crb-lctkekr and prescription medicines only as told by [...] 12/25/2005 Document Revised: 12/09/2016 Document Reviewed: 12/09/2016 [email or web address] Interactive Patient Education ?? 2019 [employer]. Emergency Awareness and Preventative Care STROKE [...] Assistance with quitting is available by contacting 0-037-ESIMNOW. This is a free resource providing counseling, [...] was given the opportunity to ask questions. Patient/Loom Mechanic Name: Patient/Loom Mechanic Signature: Relationship to Patient: Clinician/Hospital Loom Mechanic Signature: Please Provide a Telephone Number Where You Can Be Reached: Is it Permissible To Leave a Message? Date: Electronically signed by Sana [facility] Conversion Structural Welder Cerner at 07/15/2022 8:03 AM CDT documented in this encounter Plan of Treatment Not on file documented as of this encounter Visit Diagnoses Not on filedocumented in this encounter Care Teams Inventory Worker Relationship Specialty Start Date End Date Manuel Bingham MD [address] [place] [address] PCP - General Family Medicine 07/31/24 documented as of this encounter
--- OUTSIDE RECORDS SUMMARY | 2024-10-28 08:28 | XMS_ITS | Encounter Summary ---
Author Organization [employer] ([place], [place], [place], [place]) Address [address] [place] [address] Care Team Providers Care Director Multimedia Name Role Phone Manuel Bingham MD Primary Care Provider [phone] Encounter Details Date Type Department Care Team (Late st Contact Info) Description 07/19/2018 Transcribed Document [facility] [place] [address] [place] [address] ProviderJohn MD [address] [place] [address] Social History Tobacco Use Types Packs/Day Years [...] 07/19/2018 8:58 PM CDT Electronically signed by [facility] Conversion Curtain Roller Assembler Cerner at 07/15/2022 8:08 AM CDT documented in this encounter Plan of Treatment Not on file documented as of this encounter Visit Diagnoses Not on filedocumented in this encounter Care Teams Director Multimedia Relationship Specialty Start Date End Date Manuel Bingham MD [address] [place] [address] PCP - General Family Medicine 07/31/24 documented as of this encounter
--- OUTSIDE RECORDS SUMMARY | 2024-10-28 08:28 | XMS_ITS | Encounter Summary ---
Author Organization [employer] ([place], [place], [place], [place]) Address [address] [place] [address] Care Team Providers Care Scientific Laboratory Supervisor Name Role Phone Manuel Bingham MD Primary Care Provider + Encounter Details Date Type Department Care Team (Late st Contact Info) Description 08/31/2018 Transcribed Document [facility] [place] [address] [place] [address] ProviderJohn MD [address] [place] [address] Social History Tobacco Use Types Packs/Day Years [...] Reviewed by Provider, No further action required [id number] Electronically signed by Sana [facility] Conversion Dog Behaviorist Cerner at 07/15/2022 8:15 AM CDT documented in this encounter Plan of Treatment Not on file documented as of this encounter Visit Diagnoses Not on filedocumented in this encounter Care Teams Scientific Laboratory Supervisor Relationship Specialty Start Date End Date Manuel Bingham MD [address] [place] [address] PCP - General Family Medicine 07/31/24 documented as of this encounter
--- OUTSIDE RECORDS SUMMARY | 2024-10-28 08:28 | XMS_ITS | Encounter Summary ---
Author Organization [employer] ([place], [place], [place], [place]) Address [address] [place] [address] Care Team Providers Care Moving Picture Operator Name Role Phone Manuel Bingham MD Primary Care Provider [phone] Encounter Details Date Type Department Care Team (Late st Contact Info) Description 08/30/2018 Transcribed Document [facility] [place] Family Medicine [address] [place] [address] ProviderJohn MD [address] [place] [address] Social History Tobacco Use Types Packs/Day Years [...] 08/30/2018 9:58 PM CDT Electronically signed by [facility] Conversion Nursing Care Attendant Cerner at 07/15/2022 8:11 AM CDT documented in this encounter Plan of Treatment Not on file documented as of this encounter Visit Diagnoses Not on filedocumented in this encounter Care Teams Moving Picture Operator Relationship Specialty Start Date End Date Manuel Bingham MD [address] [place] [address] PCP - General Family Medicine 07/31/24 documented as of this encounter
--- OUTSIDE RECORDS SUMMARY | 2024-10-28 08:28 | XMS_ITS | Encounter Summary ---
Author Organization [employer] ([place], [place], [place], [place]) Address [address] [place] [address] Care Team Providers Care Pharmacy Messenger Name Role Phone Manuel Bingham MD Primary Care Provider +1 Encounter Details Date Type Department Care Team (Late st Contact Info) Description 08/30/2018 Transcribed Document [facility] [place] [facility] [place] [address] ProviderJohn MD [address] [place] [address] Social History Tobacco Use Types Packs/Day Years [...] - Non - Urgent Tracking Group : [facility] ED East CHERIE LUNA RN - 08/30/2018 [...] Region : No Tuberculosis Symptoms : None CEHRIE LUNA RN - 08/30/2018 20:13 EDT Vital [...] 08/30/2018 20:16:40 EDT) Problems(Active) Anxiety (SNOMED CT :63666828 ) Name of Problem: Anxiety ; Recorder: Pearl Espino Rn; Confirmation: Confirmed ; Classification: Medical ; Code: 73009254 ; Contributor System: LookMedBookChart ; Last Updated: 12/19/2016 10:22 EDT ; Life Cycle Date: 12/22/2015 ; Life Cycle Status: Active ; Vocabulary: SNOMED CT Endometriosis (SNOMED CT :2343123138 ) Name of Problem: Endometriosis ; Recorder: Pearl Espino Rn; Confirmation: Confirmed ; Classification: Medical ; Code: 5943177101 ; Contributor System: LookMedBookChart ; Last Updated: 12/22/2015 6:56 EDT ; Life Cycle Date: 12/22/2015 ; Life Cycle Status: Active ; Vocabulary: SNOMED CT HTN (SNOMED CT :0917256739 ) Name of Problem: HTN ; Recorder: Pearl Espino Rn; Confirmation: Confirmed ; Classification: Medical ; Code: 1805460918 ; Contributor System: [employer] ; Last Updated: 09/30/2016 16:39 EDT ; Life Cycle Date: 12/22/2015 ; Life Cycle Status: Active ; Vocabulary: SNOMED CT S/P hysterectomy (SNOMED CT :950055394 ) Name of Problem: S/P hysterectomy ; Recorder: BELIA VELÁZQUEZ RN; Confirmation: Confirmed ; Classification: Medical ; Code: 521600503 ; Contributor System: [employer] ; Last Updated: 07/19/2018 19:29 EDT ; Life Cycle Date: 07/19/2018 ; Life Cycle Status: Active ; Vocabulary: SNOMED CT Diagnoses(Active) Fall Date: 08/30/2018 ; Diagnosis Type: Reason For Visit ; Confirmation: Complaint of ; Clinical Dx: Fall ; Classification: Medical ; Clinical Service: Emergency medicine ; Code: PNED ; Probability: 0 ; Diagnosis Code: [id number] ED Height and Weight Height Source : Stated Height Entry Format : Door Height, Feet : 5 ft(Converted to: 152 cm, 60 Inch) Height, Inches : 0 Inch(Converted to: 0 ft 0 Inch, 0.00 cm) Clinical Height : 152.4 cm Weight Source, ED : Standing scale Weight Entry Format : Door Weight, Pounds : 190 lb Clinical Dosing Weight : 86.36 kg Body Surface Area (BSA) : 1.83 m2 Body Mass Index : 37.2 kg/m2 (HI) [place] Body Weight (IBW) : 45.16 kg CHERIE [...] 08/30/2018 20:13 EDT Electronically signed by Sana, [facility] Conversion Handle Assembler Cerner at 07/15/2022 8:13 AM CDT documented in this encounter Plan of Treatment Not on file documented as of this encounter Visit Diagnoses Not on filedocumented in this encounter Care Teams Pharmacy Messenger Relationship Specialty Start Date End Date Manuel Bingham MD [address] [place] [address] PCP - General Family Medicine 07/31/24 documented as of this encounter
--- OUTSIDE RECORDS SUMMARY | 2024-10-28 08:28 | XMS_ITS | Encounter Summary ---
Author Organization [employer] ([place], [place], [place], [place]) Address [address] [place] [address] Care Team Providers Care Music Library Assistant Name Role Phone Manuel Bingham MD Primary Care Provider + Encounter Details Date Type Department Care Team (Late st Contact Info) Description 08/30/2018 Transcribed Document [facility] [place] Family Medicine [facility] [place] [address] ProviderJohn MD [address] [place] [phone] Social History Tobacco Use Types Packs/Day Years Used Date Smoking Tobacco: Never Assessed Comments Unknown Sex and Gender Information Value Date Recorded Sex Assigned at Not on file Legal Sex Female 4:40 PM CDT Gender Identity Not on file Sexual Orientation Not on file documented as of this encounter Miscellaneous Notes * Cerner Conversion Note - John ProviderMD - 08/30/2018 10:01 [place] [address] JESSICA SAWYER :1970 Visit Time:08/30/2018 Your Visit [...] computer, smartphone, or tablet. Just go to [email or web address] to get started. Questions? Call . You [...] symptoms worsen hope you feel better! Where: [facility] [address] [facility] (1) Follow Up with NO PRIM DR QUINTERO When Within 2 to 3 days Allergies No Known Medication Allergies Immunizations This Visit No Immunizations Found Medications What How Much When Instructions Next Dose acetaminophen (Tylenol Extra Strength 500 mg oral tablet) 1 Tablet(s) Oral Every 6 Hours as needed for for pain Duration: 5 Day(s) Pickup at [facility] methocarbamol (Robaxin 500 mg oral tablet) 2 Tablet(s) Oral Four Times A Day Duration: 7 Day(s) Pickup at [facility] aspirin (aspirin 81 mg oral tablet) 1 Tablet(s) Oral Every Day bisoprolol (bisoprolol 5 mg oral tablet) 0.5 Tablet(s) Oral Every Day bumetanide (Bumex) Every Day conjugated estrogens (Premarin 0.9 mg oral tablet) 1 Tablet(s) Oral Every Day meloxicam (meloxicam 7.5 mg oral tablet) Oral Every Day meloxicam (meloxicam 7.5 mg oral tablet) 1 Tablet(s) Oral Every Day Duration: 7 Day(s) Pickup at [facility] spironolactone (spironolactone 100 mg oral tablet) 1 Tablet(s) Oral Every Day [facility] [address] [place] [phone] The home medications listed are only as [...] are sitting or lying down. ??? Take pqnh-hls-gdkxfej and prescription medicines only as told by [...] 03/17/2006 Document Revised: 12/04/2016 Document Reviewed: 10/04/2016 [employer] Interactive Patient Education ?? 2019 [employer] Back Exercises If you have pain [...] 04/19/2011 Document Revised: 10/22/2017 Document Reviewed: 05/11/2015 [employer] Interactive Patient Education ?? 2019 [employer]. Emergency Awareness and Preventative Care STROKE is [...] Assistance with quitting is available by contacting 0-118-ZNRF-NOW. This is a free resource providing counseling, [...] was given the opportunity to ask questions. Patient/Bench Lathe Operator Name: Patient/Bench Lathe Operator Signature: Relationship to Patient: Clinician/Hospital Bench Lathe Operator Signature: Please Provide a Telephone Number Where You Can Be Reached: Is it Permissible To Leave a Message? Date: Electronically signed by Floyd Hood Conversion Air Conditioning Equipment Mechanic Richardner at 07/15/2022 8:04 AM CDT documented in this encounter Plan of Treatment Not on file documented as of this encounter Visit Diagnoses Not on filedocumented in this encounter Care Teams Music Library Assistant Relationship Specialty Start Date End Date Manuel Bingham MD [address] [place] [address] PCP - General Family Medicine 07/31/24 documented as of this encounter
--- OUTSIDE RECORDS SUMMARY | 2024-10-28 08:28 | XMS_ITS | Encounter Summary ---
Author Organization [employer] ([place], [place], [place], [place]) Address [address] [place] [address] Care Team Providers Care Mixed Livestock Farmer Name Role Phone Manuel Bingham MD Primary Care Provider + Encounter Details Date Type Department Care Team (Late st Contact Info) Description 07/19/2018 Transcribed Document [facility] Family Medicine [address] [place] [address] ProviderJohn MD [address] [place] [address] Social History Tobacco Use Types Packs/Day Years [...] EDT DCP GENERIC CODE Tracking Group : [facility] Tracking Acuity : 4 [...] 07/19/2018 19:33:47 EDT) Problems(Active) Anxiety (SNOMED CT :78245213 ) Name of Problem: Anxiety ; Recorder: Pearl Espino Rn; Confirmation: Confirmed ; Classification: Medical ; Code: [id number] ; Contributor System: [employer] ; Last Updated: 12/19/2016 10:22 EDT ; Life Cycle Date: 12/22/2015 ; Life Cycle Status: Active ; Vocabulary: SNOMED CT Endometriosis (SNOMED CT :6032299465 ) Name of Problem: Endometriosis ; Recorder: Pearl Espino Rn; Confirmation: Confirmed ; Classification: Medical ; Code: [id number] ; Contributor System: [employer] ; Last Updated: 12/22/2015 6:56 EDT ; Life Cycle Date: 12/22/2015 ; Life Cycle Status: Active ; Vocabulary: SNOMED CT HTN (SNOMED CT :8068128040 ) Name of Problem: HTN ; Recorder: Pearl Espino Rn; Confirmation: Confirmed ; Classification: Medical ; Code: [id number] ; Contributor System: [employer] ; Last Updated: 09/30/2016 16:39 EDT ; Life Cycle Date: 12/22/2015 ; Life Cycle Status: Active ; Vocabulary: SNOMED CT S/P hysterectomy (SNOMED CT :416639147 ) Name of Problem: S/P hysterectomy ; Recorder: BELIA VELÁZQUEZ RN; Confirmation: Confirmed ; Classification: Medical ; Code: [id number] ; Contributor System: [employer] ; Last Updated: 07/19/2018 19:29 EDT ; Life Cycle Date: 07/19/2018 ; Life Cycle Status: Active ; Vocabulary: SNOMED CT Diagnoses(Active) Back pain Date: 07/19/2018 ; Diagnosis Type: Reason For Visit ; Confirmation: Complaint of ; Clinical Dx: Back pain ; Classification: Medical ; Clinical Service: Emergency medicine ; Code: PNED ; Probability: 0 ; Diagnosis Code: [id number] ED Height and Weight Height Source : Measured Height Entry Format : [place] Height, Feet : 5 ft(Converted to: 152 cm, 60 Inch) Height, Inches : 0 Inch(Converted to: 0 ft 0 Inch, 0.00 cm) Clinical Height : 152.4 cm Weight Source, ED : Standing scale Weight Entry Format : [place] Weight, Pounds : 191 lb Clinical Dosing Weight : 86.82 kg Body Surface Area (BSA) : 1.83 m2 Body Mass Index : 37.4 kg/m2 (HI) [place] Body Weight (IBW) : 45.16 kg BELIA [...] 07/19/2018 19:28 EDT Electronically signed by Sana [facility] Conversion Senior Front End Engineer Cerner at 07/15/2022 8:06 AM CDT documented in this encounter Plan of Treatment Not on file documented as of this encounter Visit Diagnoses Not on filedocumented in this encounter Care Teams Mixed Livestock Farmer Relationship Specialty Start Date End Date Manuel Bingham MD [address] [place] [address] PCP - General Family Medicine 07/31/24 documented as of this encounter
--- OUTSIDE RECORDS SUMMARY | 2024-10-28 08:29 | XMS_ITS | Encounter Summary ---
Author Organization [employer] ([place], [place], [place], [place]) Address [address] [place] [address] Care Team Providers Care Range Technician Name Role Phone Manuel Bingham MD Primary Care Provider + Encounter Details Date Type Department Care Team (Late st Contact Info) Description 02/27/2020 Transcribed Document [facility] [place] Family Medicine [address] [place] [address] ProviderJohn MD [address] [place] [address] Social History Tobacco Use Types Packs/Day Years Used Date Smoking Tobacco: Never Assessed Comments Unknown Sex and Gender Information Value Date Recorded Sex Assigned at Not on file Legal Sex Female 4:40 PM CDT Gender Identity Not on file Sexual Orientation Not on file documented as of this encounter Miscellaneous Notes * Cerner Conversion Note - Historical ProviderMD - 02/27/2020 9:22 PM BOTTOM WORKER Broset Violence Assessment Entered On: 02/28/2020 2:53 EST Performed On: 02/27/2020 21:30 EST by Raman Peterson, Rn Broset Violence Assessment Broset Violence Checklist of Symptoms : None Broset Violence Symptoms Subtotal : 0 Broset Violence Symptoms Indicator : Low risk (0) Raman Peterson, Rn - 02/28/2020 2:43 EST Electronically signed by Sana [facility] Conversion Patient Insurance Clerk Cerner at 07/15/2022 8:10 AM CDT documented in this encounter Plan of Treatment Not on file documented as of this encounter Visit Diagnoses Not on filedocumented in this encounter Care Teams Range Technician Relationship Specialty Start Date End Date Manuel Bingham MD [address] [place] [address] PCP - General Family Medicine 07/31/24 documented as of this encounter
--- OUTSIDE RECORDS SUMMARY | 2024-10-28 08:29 | XMS_ITS | Encounter Summary ---
Author Organization [employer] ([place], [place], [place], [place]) Address [address] [place] [address] Care Team Providers Care Proteomics Scientist Name Role Phone Manuel Bingham MD Primary Care Provider + Encounter Details Date Type Department Care Team (Late st Contact Info) Description 02/27/2020 Transcribed Document [facility] [facility] [place] [address] ProviderJohn MD [address] [id number] Social History Tobacco Use Types Packs/Day Years Used Date Smoking Tobacco: Never Assessed Comments Unknown Sex and Gender Information Value Date Recorded Sex Assigned at Not on file Legal Sex Female 4:40 PM CDT Gender Identity Not on file Sexual Orientation Not on file documented as of this encounter Miscellaneous Notes * Cerner Conversion Note - Historical ProviderMD - 02/27/2020 11:12 PM TAX SERVICES MANAGER Patient: JESSICA SAWYER Age: 49 years [...] Surgical history: heart cath. Endometrial Ablation. Cholecystectomy; (17112). colonoscopy. d&c. right carpal tunnel and right [...] % 24.2 % Lymph # 1.19 K/uL Weber % 4.9 % Weber # 0.24 K/uL Eos % 0.0 % [...] pending CT PE. Amb pulse ox 97%. documented in this encounter Plan of Treatment Not on file documented as of this encounter Visit Diagnoses Not on filedocumented in this encounter Care Teams Proteomics Scientist Relationship Specialty Start Date End Date Manuel Bingham MD [address] [place] [address] PCP - General Family Medicine 07/31/24 documented as of this encounter
--- OUTSIDE RECORDS SUMMARY | 2024-10-28 08:29 | XMS_ITS | Encounter Summary ---
Author Organization [employer] ([place], [place], [place], [place]) Address [address] [place] [address] Care Team Providers Care Bobbin Marker Name Role Phone Manuel Bingham MD Primary Care Provider + Encounter Details Date Type Department Care Team (Late st Contact Info) Description 02/27/2020 Transcribed Document [facility] Family Medicine [address] [place] [address] ProviderJohn MD [address] [place] [address] Social History Tobacco Use Types Packs/Day Years Used Date Smoking Tobacco: Never Assessed Comments Unknown Sex and Gender Information Value Date Recorded Sex Assigned at Not on file Legal Sex Female 4:40 PM CDT Gender Identity Not on file Sexual Orientation Not on file documented as of this encounter Miscellaneous Notes * Cerner Conversion Note - Historical ProviderMD - 02/27/2020 9:22 PM MANAGER UNIVERSAL ED Assessment Entered On: 02/28/2020 2:52 EST Performed On: 02/27/2020 21:30 EST by Raman Peterson, vacation planner Quick Look Assessment Level of Consciousness : Alert, Awake Affect/Behavior : Appropriate, Calm, Cooperative Orientation : Oriented x 4 Skin Temperature : Warm Skin Description : Normal for ethnicity Raman Petreson, Rn - 02/28/2020 2:43 EST ED General-Functional Assess Preferred Communication Mode : Verbal Communication Barrier : None Primary Language : Djib[place]ian Any Spiritual/Cultural Needs or Requests : No [...] EST Electronically signed by Sana [facility] Conversion Outpatient Therapist Cerner at 07/15/2022 8:22 AM CDT documented in this encounter Plan of Treatment Not on file documented as of this encounter Visit Diagnoses Not on filedocumented in this encounter Care Teams Bobbin Marker Relationship Specialty Start Date End Date Manuel Bingham MD [address] [place] [address] PCP - General Family Medicine 07/31/24 documented as of this encounter
--- OUTSIDE RECORDS SUMMARY | 2024-10-28 08:29 | XMS_ITS | Encounter Summary ---
Author Organization [employer] ([place], [place], [place], [place]) Address [address] [place] [address] Care Team Providers Care Aniline Press Worker Name Role Phone Manuel Bingham MD Primary Care Provider + Encounter Details Date Type Department Care Team (Late st Contact Info) Description 02/24/2020 Transcribed Document [facility] Family Medicine [address] [place] [address] ProviderJohn MD [address] [place] [address] Social History Tobacco Use Types [...] - Historical ProviderMD - 02/24/2020 4:19 [place] [address] JESSICA SAWYER :1970 Visit Time:02/24/2020 Your Visit [...] symptoms. This may include rest, fluids, and ggwi-pvv-mihcerb medicines. Follow these instructions at home: Lifestyle [...] safe for you. General instructions ??? Take pzil-dxo-dbywmbf and prescription medicines only as told by [...] are not available, use an alcohol-based hand heater operator. ? Avoid touching your mouth, face, eyes, [...] water are not available, use alcohol-based hand heater operator. ??? Stay away from other members of [...] 04/22/2019 Document Revised: 07/13/2019 Document Reviewed: 04/22/2019 [employer] Patient Education ?? 2020 [employer]. COVID-19 Convalescent Plasma: Donate To Save Lives [...] Assistance with quitting is available by contacting 9-005-IRVBNOW. This is a free resource providing counseling, support, and referral. Or you may contact your personal physician. [employer] Suicide Prevention Lifeline: The National Suicide Prevention [...] was given the opportunity to ask questions. Patient/Psychiatric Aides Teacher Name: Patient/Psychiatric Aides Teacher Signature: Relationship to Patient: Clinician/Hospital Psychiatric Aides Teacher Signature: Please Provide a Telephone Number Where You Can Be Reached: Is it Permissible To Leave a Message? Date: Electronically signed by Sana, [facility] Conversion Automatic Maintainer Cerner at 07/15/2022 8:28 AM CDT documented in this encounter Plan of Treatment Not on file documented as of this encounter Visit Diagnoses Not on filedocumented in this encounter Care Teams Aniline Press Worker Relationship Specialty Start Date End Date Manuel Bingham MD [address] [place] [address] PCP - General Family Medicine 07/31/24 documented as of this encounter
--- OUTSIDE RECORDS SUMMARY | 2024-10-28 08:29 | XMS_ITS | Encounter Summary ---
Author Organization [facility] Address [address] [place] [address] Care Team Providers Care Gas Derrick Operator Name Role Phone Arben Rao MD Primary Care Provider [phone] Adeola Camara MD Unavailable Reason for Referral * Consultation (Routine) - Closed Specialty Diagnoses / Procedures Referred By Contac t Referred To Contact Neurosurgery Diagnoses Abnormal MRI, spine Arben Rao MD [address] [place] [address] Phone: tel: fax: Referral ID Status Reason Start Date Expiration Date V isits Requested Visits Authorized [id number] Closed Specialty Services Required 08/20/2021 02/19/2023 1 1 Encounter Details Date Type Department Care Team (Late st Contact Info) Description 08/20/2021 [facility] [address] [place] [address] Arben Rao MD [address] [place] [address] Abnormal MRI, spine (Primary Dx) Social History [...] Primary documented in this encounter Care Teams Gas Derrick Operator Relationship Specialty Start Date End Date Arben Rao MD [address] [place] [address] PCP - General 09/04/21 Adeola Camara MD [address] [facility] [address] [place] [address] Surgeon Neurosurgery 09/04/21 documented as of this encounter
--- OUTSIDE RECORDS SUMMARY | 2024-10-28 08:29 | XMS_ITS | Encounter Summary ---
Author Organization [employer] ([place], [place], [place], [place]) Address [address] [place] [address] Care Team Providers Care Paralegal Instructor Name Role Phone Manuel Bingham MD Primary Care Provider + Encounter Details Date Type Department Care Team (Late st Contact Info) Description 07/19/2018 Transcribed Document [facility] [place] Family Medicine [facility] [place] [address] ProviderJohn MD [address] [place] [address] Social History Tobacco Use Types Packs/Day Years [...] SHE HAS BEEN HAVING [facility]/2018 IS GETTING WORSE. SHE [...] Surgical history: heart cath. Endometrial Ablation. Cholecystectomy; (37260). colonoscopy. d&c. right carpal tunnel and right [...] Radiology results: Radiology Results (Last 48 hours) [id number] -- 07/19/2018 19:12 CT Spine Lumbar WO [...] 20:56 EDT, Discharge to: Home. Prescriptions: Prescription Spreader Operator Automatic Pharmacy: cyclobenzaprine 10 mg oral tablet (Prescribe): 1 Tab, Oral, TID, for 10 Day(s), PRN: as needed for spasm, 30 Tab, 0 Refill(s) [place] 5 mg-325 mg oral tablet (Prescribe): 1 Tab, Oral, TID, for 2 Day(s), PRN: for pain, 6 Tab, 0 Refill(s), Prescription Spreader Operator Automatic Pharmacy: Lidoderm 5% topical film (Prescribe): 1 [...] the following educational materials: Back Pain, Adult, Usfa-le-Kjvi, Heat Therapy, Omkx-rx-Xrrw. Limitations: Limited activity. Follow up with: NO PRIM DR QUINTERO Within 2 to 3 days; SHELLY BELLAMY Within 2 to 3 days CALL THIS MD IN THE AM AND REPORT YOUR PAIN IS WORSE . Counseled: Patient, Regarding diagnosis, Regarding diagnostic results, Regarding treatment plan, Regarding prescription, Patient indicated understanding of instructions. Electronically signed by Sana, [facility] Conversion Emergency Room Physician Cerner at 07/15/2022 8:13 AM CDT documented in this encounter Plan of Treatment Not on file documented as of this encounter Visit Diagnoses Not on filedocumented in this encounter Care Teams Paralegal Instructor Relationship Specialty Start Date End Date Manuel Bingham MD [address] [place] [address] PCP - General Family Medicine 07/31/24 documented as of this encounter
--- OUTSIDE RECORDS SUMMARY | 2024-10-28 08:29 | XMS_ITS | Encounter Summary ---
Author Organization [email or web address] ([place], [place], [place], [place]) Address [address] [place] [address] Care Team Providers Care Hole Puncher Strap Name Role Phone Manuel Bingham MD Primary Care Provider + Encounter Details Date Type Department Care Team (Late st Contact Info) Description 02/27/2020 Transcribed Document [facility] [place] Family Medicine [address] [place] [address] ProviderJohn MD [address] [place] [address] Social History Tobacco Use Types Packs/Day Years Used Date Smoking Tobacco: Never Assessed Comments Unknown Sex and Gender Information Value Date Recorded Sex Assigned at Not on file Legal Sex Female 4:40 PM CDT Gender Identity Not on file Sexual Orientation Not on file documented as of this encounter Miscellaneous Notes * Cerner Conversion Note - Historical ProviderMD - 02/27/2020 9:22 PM STOCK CLERK SELF SERVICE STORE [place] Suicide Severity Rating Scale (C-SSRS) Entered On: 02/28/2020 2:53 EST Performed On: 02/27/2020 21:30 EST by Raman Peterson, Rn [place] Suicide Severity Rating Scale (C-SSRS) CSSRS Past Month Wish to be : No CSSRS Past Month Suicidal Thoughts : No CSSRS Lifetime Suicide Behavior : No Suicide Severity Rating Score : 0 Suicide Severity Rating : No Additional Care Required at this time Raman Peterson, Rn - 02/28/2020 2:43 EST Electronically signed by Sana [facility] Conversion Assistant Finance Director Cerner at 07/15/2022 8:06 AM CDT documented in this encounter Plan of Treatment Not on file documented as of this encounter Visit Diagnoses Not on filedocumented in this encounter Care Teams Hole Puncher Strap Relationship Specialty Start Date End Date Manuel Bingham MD [address] [place] [address] PCP - General Family Medicine 07/31/24 documented as of this encounter
--- OUTSIDE RECORDS SUMMARY | 2024-10-28 08:29 | XMS_ITS | Encounter Summary ---
Author Organization [employer] ([place], [place], [place], [place]) Address [address] [place] [address] Care Team Providers Care Feed Blender Name Role Phone Manuel Bingham MD Primary Care Provider + Encounter Details Date Type Department Care Team (Late st Contact Info) Description 02/27/[address] [facility] [place] Family Medicine [facility] [place] [address] ProviderJohn MD [address] [place] [address] Social History Tobacco Use Types [...] - John ProviderMD - 02/27/2020 9:22 PM FIELD RETURN REPAIRER ED Triage Entered On: 02/27/2020 21:49 EST [...] EST DCP GENERIC CODE Tracking Group : [facility] ED [facility] Tracking Acuity : 3 - [...] 02/27/2020 21:50:26 EST) Problems(Active) Anxiety (SNOMED CT :82660118 ) Name of Problem: Anxiety ; Recorder: Pearl Espino RN; Confirmation: Confirmed ; Classification: Medical ; Code: [id number] ; Contributor System: [employer] ; Last Updated: 12/19/2016 10:22 EDT ; Life Cycle Date: 12/22/2015 ; Life Cycle Status: Active ; Vocabulary: SNOMED CT CHF (congestive heart failure) (SNOMED CT :64338453 ) Name of Problem: CHF (congestive heart failure) ; Recorder: RAMILA CHIU; Confirmation: Confirmed ; Classification: Medical ; Code: 44072535 ; Contributor System: [employer] ; Last Updated: 02/24/2020 14:48 EST ; Life Cycle Date: 02/24/2020 ; Life Cycle Status: Active ; Vocabulary: SNOMED CT Endometriosis (SNOMED CT :4880926310 ) Name of Problem: Endometriosis ; Recorder: Pearl Espino RN; Confirmation: Confirmed ; Classification: Medical ; Code: 1338883558 ; Contributor System: [employer] ; Last Updated: 12/22/2015 6:56 EDT ; Life Cycle Date: 12/22/2015 ; Life Cycle Status: Active ; Vocabulary: SNOMED CT HTN (SNOMED CT :4799310403 ) Name of Problem: HTN ; Recorder: Pearl Espino RN; Confirmation: Confirmed ; Classification: Medical ; Code: [id number] ; Contributor System: Power[employer] ; Last Updated: 09/30/2016 16:39 EDT ; Life Cycle Date: 12/22/2015 ; Life Cycle Status: Active ; Vocabulary: SNOMED CT S/P cholecystectomy (SNOMED CT :9701955151 ) Name of Problem: S/P cholecystectomy ; Recorder: BELIA VELÁZQUEZ RN; Confirmation: Confirmed ; Classification: Medical ; Code: 5517536574 ; Contributor System: Power[employer] ; Last Updated: 02/27/2020 21:44 EST ; Life Cycle Date: 02/27/2020 ; Life Cycle Status: Active ; Vocabulary: SNOMED CT S/P hysterectomy (SNOMED CT :410904478 ) Name of Problem: S/P hysterectomy ; Recorder: BELIA VELÁZQUEZ RN; Confirmation: Confirmed ; Classification: Medical ; Code: 218563943 ; Contributor System: PowerChart ; Last Updated: 07/19/2018 19:29 EDT ; Life Cycle Date: 07/19/2018 ; Life Cycle Status: Active ; Vocabulary: SNOMED CT Diagnoses(Active) Cough Date: 02/27/2020 ; Diagnosis Type: Reason For Visit ; Confirmation: Complaint of ; Clinical Dx: Cough ; Classification: Medical ; Clinical Service: Emergency medicine ; Code: PNED ; Probability: 0 ; Diagnosis Code: [id number] Fever Date: 02/27/2020 ; Diagnosis Type: Reason For Visit ; Confirmation: Complaint of ; Clinical Dx: Fever ; Classification: Medical ; Clinical Service: Emergency medicine ; Code: PNED ; Probability: 0 ; Diagnosis Code: [id number] ED Height and Weight Height Source : Measured Height Entry Format : [place] Height, Feet : 4 ft(Converted to: 122 cm, 48 Inch) Height, Inches : 11 Inch(Converted to: 0 ft 11 Inch, 27.94 cm) Clinical Height : 149.86 cm Weight Source, ED : Standing scale Weight Entry Format : [place] Weight, Pounds : 190 lb Clinical Dosing Weight : 86.36 kg Body Surface Area (BSA) : 1.81 m2 Body Mass Index : 38.5 kg/m2 (HI) [place] Body Weight (IBW) : 42.87 kg BELIA [...] 02/27/2020 21:43 EST Electronically signed by Sana [facility] [place] [employer] Conversion Marketing Research Coordinator Cerner at 07/15/2022 8:07 AM CDT documented in this encounter Plan of Treatment Not on file documented as of this encounter Visit Diagnoses Not on filedocumented in this encounter Care Teams Feed Blender Relationship Specialty Start Date End Date Manuel Bingham MD [address] [place] [phone] PCP - General Family Medicine 07/31/24 documented as of this encounter
--- OUTSIDE RECORDS SUMMARY | 2024-10-28 08:29 | XMS_ITS | Encounter Summary ---
Author Organization [employer] ([place], [place], [place], [place]) Address [address] [place] [address] Care Team Providers Care Molder Hand Name Role Phone Manuel Bingham MD Primary Care Provider +1 Encounter Details Date Type Department Care Team (Late st Contact Info) Description 02/24/2020 Transcribed Document [facility] [place] Family Medicine [address] [place] [address] ProviderJohn MD [address] [place] [address] Social History Tobacco Use Types Packs/Day Years Used Date Smoking Tobacco: Never Assessed Comments Unknown Sex and Gender Information Value Date Recorded Sex Assigned at Not on file Legal Sex Female 4:40 PM CDT Gender Identity Not on file Sexual Orientation Not on file documented as of this encounter Miscellaneous Notes * Cerner Conversion Note - John ProviderMD - 02/24/2020 4:18 PM BATTERY WRECKER OPERATOR Electronically signed by Sana [facility] Conversion Digital Strategy Manager Cerner at 07/15/2022 8:28 AM CDT documented in this encounter Plan of Treatment Not on file documented as of this encounter Visit Diagnoses Not on filedocumented in this encounter Care Teams Molder Hand Relationship Specialty Start Date End Date Manuel Bingham MD [address] [place] [address] PCP - General Family Medicine 07/31/24 documented as of this encounter
--- OUTSIDE RECORDS SUMMARY | 2024-10-28 08:29 | XMS_ITS | Encounter Summary ---
Author Organization [employer] ([place], [place], [place], [place]) Address [address] [place] [address] Care Team Providers Care Excellence Consultant Name Role Phone Manuel Bingham MD Primary Care Provider + Encounter Details Date Type Department Care Team (Late st Contact Info) Description 02/28/2020 Transcribed Document [facility] [place] [address] [place] [address] ProviderJohn MD [address] [place] [address] Social History Tobacco Use Types [...] - Historical ProviderMD - 02/28/2020 2:28 PM SILK SCREEN REPAIRER CR Chest 1 Vw Portable Ordered: 02/27/2020 Modified Reason for Exam: SOA 02/28/2020 07:43 02/28/2020 14:28 (BREANA LUU, BERNARDO-EMR) Reviewed by Provider, No further action required 02/28/2020 14:18 (CHESTER BENITEZ) Provider Review Required documented in this encounter Plan of Treatment Not on file documented as of this encounter Visit Diagnoses Not on filedocumented in this encounter Care Teams Excellence Consultant Relationship Specialty Start Date End Date Manuel Bingham MD [address] [place] [address] PCP - General Family Medicine 07/31/24 documented as of this encounter
--- OUTSIDE RECORDS SUMMARY | 2024-10-28 08:29 | XMS_ITS | Encounter Summary ---
Author Organization [employer] ([place], [place], [place], [place]) Address [address] [place] [address] Care Team Providers Care Obstetrics Gyn Name Role Phone Manuel Bingham MD Primary Care Provider +1 Encounter Details Date Type Department Care Team (Late st Contact Info) Description 02/28/2020 Transcribed Document [facility] [place] Family Medicine [address] [place] [address] ProviderJohn MD [address] [place] [address] Social History Tobacco Use Types Packs/Day Years Used Date Smoking Tobacco: Never Assessed Comments Unknown Sex and Gender Information Value Date Recorded Sex Assigned at Not on file Legal Sex Female 4:40 PM CDT Gender Identity Not on file Sexual Orientation Not on file documented as of this encounter Miscellaneous Notes * Cerner Conversion Note - John ProviderMD - 02/28/2020 4:31 AM RN RADIATION Electronically signed by Sana [facility] Conversion Afternoon Nanny Cerner at 07/15/2022 8:06 AM CDT documented in this encounter Plan of Treatment Not on file documented as of this encounter Visit Diagnoses Not on filedocumented in this encounter Care Teams Obstetrics Gyn Relationship Specialty Start Date End Date Manuel Bingham MD [address] [place] [address] PCP - General Family Medicine 07/31/24 documented as of this encounter
--- OUTSIDE RECORDS SUMMARY | 2024-10-28 08:29 | XMS_ITS | Encounter Summary ---
Author Organization [employer] ([place], [place], [place], [place]) Address [address] [place] [address] Care Team Providers Care Type Casting Machine Operator Name Role Phone Manuel Bingham MD Primary Care Provider + Encounter Details Date Type Department Care Team (Late st Contact Info) Description 02/28/2020 Transcribed Document [facility] [place] [address] [place] [address] ProviderJohn MD [address] [place] [address] Social History Tobacco Use Types [...] John Frank MD - 02/28/2020 7:19 AM CHANNEL ROUGHER ED Discharge Entered On: 02/28/2020 7:19 EST Performed On: 02/28/2020 7:19 EST by LIS VASQUEZ RN Discharge Process Patient Disposition : Discharge LIS VASQUEZ RN - 02/28/2020 7:19 EST Electronically signed by Sana [facility] Conversion Reagent Tender Helper Cerner at 07/15/2022 8:16 AM CDT documented in this encounter Plan of Treatment Not on file documented as of this encounter Visit Diagnoses Not on filedocumented in this encounter Care Teams Type Casting Machine Operator Relationship Specialty Start Date End Date Mnauel Bingham MD [address] [place] [phone] PCP - General Family Medicine 07/31/24 documented as of this encounter
--- OUTSIDE RECORDS SUMMARY | 2024-10-28 08:29 | XMS_ITS | Encounter Summary ---
Author Organization [employer] ([place], [place], [place], [place]) Address [address] [place] [address] Care Team Providers Care Machine Pie Maker Name Role Phone Manuel Bingham MD Primary Care Provider + Encounter Details Date Type Department Care Team (Late st Contact Info) Description 02/27/2020 Transcribed Document [facility] [place] Family Medicine [address] [place] [address] ProviderJohn MD [address] [place] [address] Social History Tobacco Use Types Packs/Day Years Used Date Smoking Tobacco: Never Assessed Comments Unknown Sex and Gender Information Value Date Recorded Sex Assigned at Not on file Legal Sex Female 4:40 PM CDT Gender Identity Not on file Sexual Orientation Not on file documented as of this encounter Miscellaneous Notes * Cerner Conversion Note - Historical ProviderMD - 02/27/2020 10:59 PM NURSING SERVICE ADMINISTRATOR ED Event Note Entered On: 02/27/2020 23:02 EST Performed On: 02/27/2020 22:59 EST by Umberto Higgins Filler Spreader ED Event Note ED Event Date/Time : [...] was notifed of the results. Umberto Higgins Filler Spreader - 02/27/2020 22:59 EST Electronically signed by Sana [facility] Conversion Interactive Art Director Cerner at 07/15/2022 8:21 AM CDT documented in this encounter Plan of Treatment Not on file documented as of this encounter Visit Diagnoses Not on filedocumented in this encounter Care Teams Machine Pie Maker Relationship Specialty Start Date End Date Manuel Bingham MD [address] [place] [address] PCP - General Family Medicine 07/31/24 documented as of this encounter
--- OUTSIDE RECORDS SUMMARY | 2024-10-28 08:29 | XMS_ITS | Encounter Summary ---
Author Organization [employer] ([place], [place], [place], [place]) Address [address] [place] [address] Care Team Providers Care Regional Loss Prevention Manager Name Role Phone Manuel Bingham MD Primary Care Provider + Encounter Details Date Type Department Care Team (Late st Contact Info) Description 02/24/2020 Transcribed Document [facility] [place] [address] [place] [address] ProviderJohn MD [address] [place], [place] [id number] Social History Tobacco Use Types Packs/Day Years Used Date Smoking Tobacco: Never Assessed Comments Unknown Sex and Gender Information Value Date Recorded Sex Assigned at Not on file Legal Sex Female 4:40 PM CDT Gender Identity Not on file Sexual Orientation Not on file documented as of this encounter Miscellaneous Notes * Cerner Conversion Note - Historical ProviderMD - 02/24/2020 2:34 PM BANDOLEER STRAIGHTENER STAMPER ED Triage Entered On: 02/24/2020 14:49 EST Performed On: 02/24/2020 14:47 EST by RAMILA CHIU ED Triage Across the Room Chief Complaint : C/o fever and cough since 2 am Triage Date/Time : 02/24/2020 14:47 EST RAMILA CHIU - 02/24/2020 14:47 EST DCP GENERIC CODE Tracking Acuity : 4 - Non - Urgent Tracking Group : [facility] RAMILA CHIU - 02/24/2020 14:47 EST [...] 02/24/2020 14:49:24 EST) Problems(Active) Anxiety (SNOMED CT :06179318 ) Name of Problem: Anxiety ; Recorder: Pearl Espino RN; Confirmation: Confirmed ; Classification: Medical ; Code: 18772769 ; Contributor System: [employer] ; Last Updated: 12/19/2016 10:22 EDT ; Life Cycle Date: 12/22/2015 ; Life Cycle Status: Active ; Vocabulary: SNOMED CT CHF (congestive heart failure) (SNOMED CT :81139648 ) Name of Problem: CHF (congestive heart failure) ; Recorder: RAMILA CHIU; Confirmation: Confirmed ; Classification: Medical ; Code: 66241799 ; Contributor System: [employer] ; Last Updated: 02/24/2020 14:48 EST ; Life Cycle Date: 02/24/2020 ; Life Cycle Status: Active ; Vocabulary: SNOMED CT Endometriosis (SNOMED CT :2185383820 ) Name of Problem: Endometriosis ; Recorder: Pearl Espino RN; Confirmation: Confirmed ; Classification: Medical ; Code: 6596393136 ; Contributor System: [employer] ; Last Updated: 12/22/2015 6:56 EDT ; Life Cycle Date: 12/22/2015 ; Life Cycle Status: Active ; Vocabulary: SNOMED CT HTN (SNOMED CT :9543181595 ) Name of Problem: HTN ; Recorder: Pearl Espino RN; Confirmation: Confirmed ; Classification: Medical ; Code: 3801803672 ; Contributor System: [employer] ; Last Updated: 09/30/2016 16:39 EDT ; Life Cycle Date: 12/22/2015 ; Life Cycle Status: Active ; Vocabulary: SNOMED CT S/P hysterectomy (SNOMED CT :350810925 ) Name of Problem: S/P hysterectomy ; Recorder: BELIA VELÁZQUEZ RN; Confirmation: Confirmed ; Classification: Medical ; Code: 174003595 ; Contributor System: [employer] ; Last Updated: 07/19/2018 19:29 EDT ; Life Cycle Date: 07/19/2018 ; Life Cycle Status: Active ; Vocabulary: SNOMED CT Diagnoses(Active) Cough Date: 02/24/2020 ; Diagnosis Type: Reason For Visit ; Confirmation: Complaint of ; Clinical Dx: Cough ; Classification: Medical ; Clinical Service: Emergency medicine ; Code: PNED ; Probability: 0 ; Diagnosis Code: [id number] ED Height and Weight Height Source : Stated Height Entry Format : [place] Height, Feet : 5 ft(Converted to: 152 cm, 60 Inch) Height, Inches : 4 Inch(Converted to: 0 ft 4 Inch, 10.16 cm) Clinical Height : 162.56 cm Weight Source, ED : Critical estimated dosing weight Weight Entry Format : [place] Weight, Pounds : 190 lb Clinical Dosing Weight : 86.36 kg Body Surface Area (BSA) : 1.92 m2 Body Mass Index : 32.7 kg/m2 (HI) [place] Body Weight (IBW) : 54.3 kg RAMILA CHIU 02/24/2020 14:47 EST documented in this encounter Plan of Treatment Not on file documented as of this encounter Visit Diagnoses Not on filedocumented in this encounter Care Teams Regional Loss Prevention Manager Relationship Specialty Start Date End Date Manuel Bingham MD [address] [place] [address] PCP - General Family Medicine 07/31/24 documented as of this encounter
--- OUTSIDE RECORDS SUMMARY | 2024-10-28 08:30 | XMS_ITS | Encounter Summary ---
Author Organization [employer] ([place], [place], [place], [place]) Address [address] [place] [address] Care Team Providers Care Manager Welding Name Role Phone Manuel Bingham MD Primary Care Provider + Encounter Details Date Type Department Care Team (Late st Contact Info) Description 11/30/2019 Transcribed Document [facility] [place] [address] ProviderJohn MD [address] [place] [address] Social History Tobacco Use Types [...] Frank MD - 11/30/2019 4:00 [place] [address] JESSICA SAWYER :1970 Visit Time:11/29/2019 Your Visit [...] Inhalation Four Times A Day Pickup at [facility]/pharmacy #[id number] aspirin (aspirin 81 mg oral tablet) 1 [...] 1 Tablet(s) Oral Every Day Pharmacy Information [facility]/pharmacy #[id number]: [address] [place] [id number] [phone] The home medications listed are only as [...] range between ( 1.0 and 7.0 ) Coleman #: 0.56 K/uL -- Normal range between ( 0.24 and 0.82 ) Eos #: 0.18 K/uL -- Normal range between ( 0.04 and 0.54 ) Coleman %: 6.6 % -- Normal range between [...] these instructions at home: Medicines ??? Take pplt-aba-zgnnvmg and prescription medicines only as told by [...] 03/19/2004 Document Revised: 02/27/2018 Document Reviewed: 03/13/2017 [employer] Patient Education ?? 2020 uShare. Emergency Awareness and Preventative Care STROKE is [...] Assistance with quitting is available by contacting 6-563-LDUG-NOW. This is a free resource providing counseling, [...] was given the opportunity to ask questions. Patient/Spring Layer Name: Patient/Spring Layer Signature: Relationship to Patient: Clinician/Hospital Spring Layer Signature: Please Provide a Telephone Number Where You Can Be Reached: Is it Permissible To Leave a Message? Date: Electronically signed by Sana, [facility] Conversion Wicker Molded Candles Sandeep at 07/15/2022 8:05 AM CDT documented in this encounter Plan of Treatment Not on file documented as of this encounter Visit Diagnoses Not on filedocumented in this encounter Care Teams Manager Welding Relationship Specialty Start Date End Date Manuel Bingham MD [address] [place] [address] PCP - General Family Medicine 07/31/24 documented as of this encounter
--- OUTSIDE RECORDS SUMMARY | 2024-10-28 08:30 | XMS_ITS | Encounter Summary ---
Author Organization [employer] ([place], [place], [place], [place]) Address [address] [place] [address] Care Team Providers Care Candy Decorator Name Role Phone Manuel Bingham MD Primary Care Provider + Encounter Details Date Type Department Care Team (Late st Contact Info) Description 02/24/2020 Transcribed Document [facility] [place] [address] [place] [address] ProviderJohn MD [address] [place] [address] Social History Tobacco Use Types Packs/Day Years Used Date Smoking Tobacco: Never Assessed Comments Unknown Sex and Gender Information Value Date Recorded Sex Assigned at Not on file Legal Sex Female 4:40 PM CDT Gender Identity Not on file Sexual Orientation Not on file documented as of this encounter Miscellaneous Notes * Cerner Conversion Note - Historical ProviderMD - 02/24/2020 2:34 PM RETAIL ADVERTISING SALES MANAGER ED Assessment Entered On: 02/24/2020 16:24 EST [...] Communication Barrier : None Primary Language : Panamanian Any Spiritual/Cultural Needs or Requests : No [...] on filedocumented in this encounter Care Teams Candy Decorator Relationship Specialty Start Date End Date Manuel Bingham MD [address] [place] [phone] PCP - General Family Medicine 07/31/24 documented as of this encounter
--- OUTSIDE RECORDS SUMMARY | 2024-10-28 08:30 | XMS_ITS | Encounter Summary ---
Author Organization [employer] ([place], [place], [place], [place]) Address [address] [place] [address] Care Team Providers Care Cancer Researcher Name Role Phone Manuel Bingham MD Primary Care Provider + Encounter Details Date Type Department Care Team (Late st Contact Info) Description 11/30/2019 Transcribed Document [facility] [place] [facility] [place] [address] ProviderJohn MD [address] [place] [address] Social History Tobacco Use Types Packs/Day [...] on filedocumented in this encounter Care Teams Cancer Researcher Relationship Specialty Start Date End Date Manuel Bingham MD [address] [place] [phone] PCP - General Family Medicine 07/31/24 documented as of this encounter
--- OUTSIDE RECORDS SUMMARY | 2024-10-28 08:30 | XMS_ITS | Encounter Summary ---
Author Organization [employer] ([place], [place], [place], [place]) Address [address] [place] [address] Care Team Providers Care Vice President Of Brand Management Name Role Phone Manuel Bingham MD Primary Care Provider + Encounter Details Date Type Department Care Team (Late st Contact Info) Description 11/29/2019 Transcribed Document [facility] [place] [address] ProviderJohn MD [address] [place] [address] Social History Tobacco Use Types Packs/Day Years [...] On: 11/30/2019 0:39 EDT by FRANKIE CRESPO, NETWORK SYSTEMS ENGINEER Triage Across the Room Chief Complaint : Pt co Increased SOA with mid chest pain that began this AM. pt is calm alert skinpwd. Triage Date/Time : 11/30/2019 0:39 EDT FRANKIE CRESPO RN - 11/30/2019 0:39 EDT DCP GENERIC CODE Tracking Acuity : 2 - Emergent Tracking Group : [facility] ED [facility] FRANKIE CRESPO RN - [...] 11/30/2019 00:41:48 EDT) Problems(Active) Anxiety (SNOMED CT :87309757 ) Name of Problem: Anxiety ; Recorder: Pearl Espino RN; Confirmation: Confirmed ; Classification: Medical ; Code: 64091117 ; Contributor System: [employer] ; Last Updated: 12/19/2016 10:22 EDT ; Life Cycle Date: 12/22/2015 ; Life Cycle Status: Active ; Vocabulary: SNOMED CT Endometriosis (SNOMED CT :9248427729 ) Name of Problem: Endometriosis ; Recorder: Pearl Espino RN; Confirmation: Confirmed ; Classification: Medical ; Code: 1572029778 ; Contributor System: [employer] ; Last Updated: 12/22/2015 6:56 EDT ; Life Cycle Date: 12/22/2015 ; Life Cycle Status: Active ; Vocabulary: SNOMED CT HTN (SNOMED CT :6364114602 ) Name of Problem: HTN ; Recorder: Pearl Espino RN; Confirmation: Confirmed ; Classification: Medical ; Code: 1517817354 ; Contributor System: [employer] ; Last Updated: 09/30/2016 16:39 EDT ; Life Cycle Date: 12/22/2015 ; Life Cycle Status: Active ; Vocabulary: SNOMED CT S/P hysterectomy (SNOMED CT :543493516 ) Name of Problem: S/P hysterectomy ; Recorder: BELIA VELÁZQUEZ RN; Confirmation: Confirmed ; Classification: Medical ; Code: 227046148 ; Contributor System: [employer] ; Last Updated: 07/19/2018 19:29 EDT ; Life Cycle Date: 07/19/2018 ; Life Cycle Status: Active ; Vocabulary: SNOMED CT Diagnoses(Active) Chest pain Date: 11/30/2019 ; Diagnosis Type: Reason For Visit ; Confirmation: Complaint of ; Clinical Dx: Chest pain ; Classification: Medical ; Clinical Service: Emergency medicine ; Code: PNED ; Probability: 0 ; Diagnosis Code: [id number] ED Height and Weight Height Source : Measured Height Entry Format : [place] Height, Feet : 5 ft(Converted to: 152 cm, 60 Inch) Height, Inches : 0 Inch(Converted to: 0 ft 0 Inch, 0.00 cm) Clinical Height : 152.4 cm Weight Source, ED : Standing scale Weight Entry Format : [place] Weight, Pounds : 217 lb Clinical Dosing Weight : 98.64 kg Body Surface Area (BSA) : 1.93 m2 Body Mass Index : 42.5 kg/m2 (>HHI) [place] Body Weight (IBW) : 45.16 kg FRANKIE [...] on filedocumented in this encounter Care Teams Vice President Of Brand Management Relationship Specialty Start Date End Date Manuel Bingham MD [address] [place] [address] PCP - General Family Medicine 07/31/24 documented as of this encounter
--- OUTSIDE RECORDS SUMMARY | 2024-10-28 08:30 | XMS_ITS | Encounter Summary ---
Author Organization [employer] ([place], [place], [place], [place]) Address [address] [place] [address] Care Team Providers Care Transportation Design Engineer Name Role Phone Manuel Bingham MD Primary Care Provider + Encounter Details Date Type Department Care Team (Late st Contact Info) Description 02/25/2020 Transcribed Document [facility] [place] Family Medicine [address] [place] [address] ProviderJohn MD [address] [place] [address] Social History Tobacco Use Types Packs/Day Years Used Date Smoking Tobacco: Never Assessed Comments Unknown Sex and Gender Information Value Date Recorded Sex Assigned at Not on file Legal Sex Female 4:40 PM CDT Gender Identity Not on file Sexual Orientation Not on file documented as of this encounter Miscellaneous Notes * Cerner Conversion Note - Historical ProviderMD - 02/25/2020 9:16 AM BAKING POWDER MIXER CR Chest 1 Vw Portable Ordered: 02/24/2020 Modified Reason for Exam: cough 02/25/2020 07:43 02/25/2020 09:16 (MITCHEL RAWLS PA) Reviewed by Provider, No further action required x1 documented in this encounter Plan of Treatment Not on file documented as of this encounter Visit Diagnoses Not on filedocumented in this encounter Care Teams Transportation Design Engineer Relationship Specialty Start Date End Date Manuel Bingham MD [address] [place] [address] [phone] PCP - General Family Medicine 07/31/24 documented as of this encounter
--- OUTSIDE RECORDS SUMMARY | 2024-10-28 08:30 | XMS_ITS | Encounter Summary ---
Author Organization [employer] ([place], [place], [place], [place]) Address [address] [place] [address] Care Team Providers Care Security Professionals Name Role Phone Manuel Bingham MD Primary Care Provider + Encounter Details Date Type Department Care Team (Late st Contact Info) Description 02/24/2020 Transcribed Document [facility] [place] Medicine [facility] [address] ProviderJohn MD [address] [place] [address] [id number] Social History Tobacco Use Types Packs/Day Years Used Date Smoking Tobacco: Never Assessed Comments Unknown Sex and Gender Information Value Date Recorded Sex Assigned at Not on file Legal Sex Female 4:40 PM CDT Gender Identity Not on file Sexual Orientation Not on file documented as of this encounter Miscellaneous Notes * Cerner Conversion Note - Historical ProviderMD - 02/24/2020 4:12 PM DENTAL SERVICE CHIEF Novel Coronavirus 2019 - - Positive 02/24/2020 15:53 02/24/2020 16:12 (MITCHEL RAWLS PA) Reviewed by Provider, No further action required Test resulted while patient in ED. documented in this encounter Plan of Treatment Not on file documented as of this encounter Visit Diagnoses Not on filedocumented in this encounter Care Teams Security Professionals Relationship Specialty Start Date End Date Manuel Bingham MD [address] [place] [address] [phone] PCP - General Family Medicine 07/31/24 documented as of this encounter
--- OUTSIDE RECORDS SUMMARY | 2024-10-28 08:30 | XMS_ITS | Encounter Summary ---
Author Organization [employer] ([place], [place], [place], [place]) Address [address] [place] [address] Care Team Providers Care Duck Operator Name Role Phone Manuel Bingham MD Primary Care Provider + 8 Encounter Details Date Type Department Care Team (Late st Contact Info) Description 11/30/2019 Transcribed Document [facility] Radiology [address] [place] [address] Devyn Gross MD [address] [place] [address] Dept. [place] [address] Social History Tobacco Use Types [...] 11/30/2019 4:37 AM EDT Electronically signed by [facility] Conversion Manager Review Cerner at 07/15/2022 8:13 AM CDT documented in this encounter Plan of Treatment Not on file documented as of this encounter Visit Diagnoses Not on filedocumented in this encounter Care Teams Duck Operator Relationship Specialty Start Date End Date Manuel Bingham MD [address] [place] [address] [phone] PCP - General Family Medicine 07/31/24 documented as of this encounter
--- OUTSIDE RECORDS SUMMARY | 2024-10-28 08:30 | XMS_ITS | Encounter Summary ---
Author Organization [employer] ([place], [place], [place], [place]) Address [address] [place] [address] Care Team Providers Care Barrel Assembler Helper Name Role Phone Manuel Bingham MD Primary Care Provider + Encounter Details Date Type Department Care Team (Late st Contact Info) Description 02/24/2020 Transcribed Document [facility] [place] Family Medicine [address] [place] [address] ProviderJohn MD [address] [place] [address] Social History Tobacco Use Types Packs/Day Years Used Date Smoking Tobacco: Never Assessed Comments Unknown Sex and Gender Information Value Date Recorded Sex Assigned at Not on file Legal Sex Female 4:40 PM CDT Gender Identity Not on file Sexual Orientation Not on file documented as of this encounter Miscellaneous Notes * Cerner Conversion Note - John ProviderMD - 02/24/2020 4:21 PM TREAD CUTTER ED Discharge Entered On: 02/24/2020 16:22 EST [...] filedocumented in this encounter Care Teams Barrel Assembler Helper Relationship Specialty Start Date End Date Manuel Bingham MD [address] [place] [phone] PCP - General Family Medicine 07/31/24 documented as of this encounter
--- OUTSIDE RECORDS SUMMARY | 2024-10-28 08:30 | XMS_ITS | Encounter Summary ---
Author Organization [employer] ([place], [place], [place], [place]) Address [address] [place] [address] Care Team Providers Care Emission Technician Name Role Phone Manuel Bingham MD Primary Care Provider + Encounter Details Date Type Department Care Team (Late st Contact Info) Description 11/29/2019 Transcribed Document [facility] [place] Family Medicine [facility] [place] [address] ProviderJohn MD [address] [place] [address] Social History Tobacco Use Types Packs/Day Years Used Date Smoking Tobacco: Never Assessed Comments Unknown Sex and Gender Information Value Date Recorded Sex Assigned at Not on file Legal Sex Female 4:40 PM CDT Gender Identity Not on file Sexual Orientation Not on file documented as of this encounter Miscellaneous Notes * Cerner Conversion Note - John ProviderMD - 11/29/2019 11:44 PM CDT [place] Suicide Severity Rating Scale (C-SSRS) Entered On: 11/30/2019 3:11 EDT Performed On: 11/30/2019 1:20 EDT by Sydni Guerra Rn [place] Suicide Severity Rating Scale (C-SSRS) CSSRS Past [...] on filedocumented in this encounter Care Teams Emission Technician Relationship Specialty Start Date End Date Manuel Bingham MD [address] [place] [address] PCP - General Family Medicine 07/31/24 documented as of this encounter
--- OUTSIDE RECORDS SUMMARY | 2024-10-28 08:30 | XMS_ITS | Encounter Summary ---
Author Organization [employer] ([place], [place], [place], [place]) Address [address] [place] [address] Care Team Providers Care Feller Buncher Operator Name Role Phone Manuel Bingham MD Primary Care Provider + Encounter Details Date Type Department Care Team (Late st Contact Info) Description 02/24/2020 Transcribed Document [facility] [place] Family Medicine [address] [place] [address] ProviderJohn MD [address] [place] [address] Social History Tobacco Use Types Packs/Day Years Used Date Smoking Tobacco: Never Assessed Comments Unknown Sex and Gender Information Value Date Recorded Sex Assigned at Not on file Legal Sex Female 4:40 PM CDT Gender Identity Not on file Sexual Orientation Not on file documented as of this encounter Miscellaneous Notes * Cerner Conversion Note - Historical ProviderMD - 02/24/2020 2:34 PM AIRPLANE DISPATCHER [place] Suicide Severity Rating Scale (C-SSRS) Entered On: 02/24/2020 16:22 EST Performed On: 02/24/2020 16:22 EST by LIS VASQUEZ RN [place] Suicide Severity Rating Scale (C-SSRS) CSSRS Past [...] on filedocumented in this encounter Care Teams Feller Buncher Operator Relationship Specialty Start Date End Date Manuel Bingham MD [address] [place] [address] PCP - General Family Medicine 07/31/24 documented as of this encounter
--- OUTSIDE RECORDS SUMMARY | 2024-10-28 08:30 | XMS_ITS | Clinical Summary ---
Author Organization [employer] ([place], [place], [place], [place]) Address [address] [place] [address] Care Team Providers Care Mortarman Name Role Phone Manuel Bingham MD Primary [...] EDT - 08/01/2024 1:23 AM EDT Emergency [facility] Emergency Department [address] [place] [phone] Carlos Casarez MD Generalized abdominal pain [...] electronically signed by James Orozco MD Voice physical fitness teacher technology ([employer]) is used for the dictation of this note and sound-alike words might be erroneously placed despite reviewing this note for accuracy. Errors in dictation may reflect use of voice recognition software and not all errors in physical fitness teacher may have been detected prior to signing. [...] electronically signed by James Orozco MD Voice physical fitness teacher technology ([employer]) is used for the dictation of this note and sound-alike words might be erroneously placed despite reviewing this note for accuracy. Errors in dictation may reflect use of voice recognition software and not all errors in physical fitness teacher may have been detected prior to signing. [...] ORDERABLES Final Res ult Performing Organization Address [facility] Co de Phone Number [facility] [address] [employer] [address] [phone] * Prothrombin time/INR (07/31/2024 11:26 PM EDT) [...] ORDERABLES Final Res ult Performing Organization Address [facility] Co de Phone Number [facility] [address] [phone] * (ABNORMAL) Lipase (07/31/2024 11:26 PM EDT) Lipase 103(H) 13 - 75 U/L 07/31/2024 11:49 PM EDT [facility] Blood Venipuncture / Unknown 07/31/2024 11:26 PM EDT 07/31/2024 11:27 PM EDT us Carlos Casarez MD LAB BLOOD ORDERABLES Final Res ult [facility] [address] [phone] * (ABNORMAL) Comprehensive metabolic panel (07/31/2024 11:26 PM EDT) [facility] Sodium 138 136 - 146 meq/L 07/31/2024 11:49 PM EDT [facility] Potassium 4.0 3.5 - 5.1 meq/L 07/31/2024 11:49 PM EDT [facility] Chloride 108 102 - 112 meq/L 07/31/2024 11:49 PM EDT [facility] CO2 25 21 - 32 meq/L 07/31/2024 11:49 PM EDT [facility] Calcium 9.2 8.5 - 10.1 mg/dL 07/31/2024 11:49 PM EDT [facility] Glucose 156(H) 74 - 106 mg/dL 07/31/2024 11:49 PM EDT [facility] BUN 20 7 - 22 mg/dL 07/31/2024 11:49 PM EDT [facility] Creatinine 1.13(H) 0.55 - 1.02 mg/dL 07/31/2024 11:49 PM EDT [facility] BUN/Creatinine 18 8 - 20 07/31/2024 11:49 PM EDT [facility] Albumin 3.2(L) 3.4 - 5.0 g/dL 07/31/2024 11:49 PM EDT [facility] Alkaline Phosphatase 69 27 - 136 U/L 07/31/2024 11:49 PM EDT [facility] ALT 23 12 - 78 U/L 07/31/2024 11:49 PM EDT [facility] AST 17 5 - 37 U/L 07/31/2024 11:49 PM EDT [facility] Total Bilirubin 0.2 0.2 - 1.3 mg/dL 07/31/2024 11:49 PM EDT [facility] Protein, Total 7.1 6.4 - 8.2 gm/dL 07/31/2024 11:49 PM EDT [facility] Anion Gap 9 9 - 20 07/31/2024 11:49 PM EDT [facility] A/G Ratio 0.8(L) 1.1 - 2.5 07/31/2024 11:49 PM EDT [facility] Globulin 3.9 1.5 - 4.5 g/dL 07/31/2024 11:49 PM EDT [facility] Osmolality Calc 281.5 mOsm/kg 11:49 PM T [facility] eGFR (mL/min/1.73m2) 58(L) >=60 mL/min/1.7 3m2 07/31/2024 11:49 PM EDT [facility] Comment:ESTIMATED GFR IS NOT ACCURATE CREATININE CLEARANCE IN PREDICTING GLOMERULAR FILTRATION RATE. ESTIMATED GFR IS NOT APPLICABLE FOR DIALYSIS PATIENTS. Blood Venipuncture / Unknown 07/31/2024 11:26 PM EDT 07/31/2024 11:27 PM EDT us Carlos Casarez MD LAB BLOOD ORDERABLES Final Res ult [facility] [address] [place] [address], [facility] [phone] * (ABNORMAL) Urinalysis, Reflex Microscopic and Culture If Indicated (07/31/2024 11:22 PM EDT) Color, UA Light Yellow 07/31/2024 11:31 PM EDT [facility] Clarity, UA Turbid(A) Clear 07/31/2024 11:31 PM EDT [facility] Specific Gould, UA 1.013 1.005 - 1.030 07/31/2024 11:31 [...] Carlos Casarez MD URINE ORDERABLES Final Result [facility] [address] [place] [address] * (ABNORMAL) Urinalysis Microscopic Only (07/31/2024 11:22 [...] Carlos Casarez MD URINE ORDERABLES Final Result [facility] [address] [place] [place] [address], [facility] [phone] from Last 3 Months Insurance [facility] MEDICARE HMO Care Teams Mortarman Relationship Specialty Start Date End Date Manuel Bingham MD [address] [place] [address] PCP - General Family Medicine 07/31/24
--- OUTSIDE RECORDS SUMMARY | 2024-10-28 08:30 | XMS_ITS | Encounter Summary ---
Author Organization [employer] ([place], [place], [place], [place]) Address [address] [place] [address] Care Team Providers Care Rough Carpenter Name Role Phone Manuel Bingham MD Primary Care Provider + Encounter Details Date Type Department Care Team (Late st Contact Info) Description 02/24/[address] [facility] [place] Family Medicine [address] [place] [address] ProviderJohn MD [address], [place] [id number] Social History Tobacco Use Types Packs/Day Years Used Date Smoking Tobacco: Never Assessed Comments Unknown Sex and Gender Information Value Date Recorded Sex Assigned at Not on file Legal Sex Female 4:40 PM CDT Gender Identity Not on file Sexual Orientation Not on file documented as of this encounter Miscellaneous Notes * Cerner Conversion Note - Historical ProviderMD - 02/24/2020 2:34 PM BREAKING MACHINE OPERATOR Broset Violence Assessment Entered On: 02/24/2020 16:22 EST Performed On: 02/24/2020 16:22 EST by LIS VASQUEZ RN Broset Violence Assessment Broset Violence Checklist of Symptoms : None Broset Violence Symptoms Subtotal : 0 Broset Violence Symptoms Indicator : Low risk (0) LIS VASQUEZ RN - 02/24/2020 16:22 EST Electronically signed by Sana [facility] Conversion Sanitary Landfill Supervisor Cerner at 07/15/2022 8:18 AM CDT documented in this encounter Plan of Treatment Not on file documented as of this encounter Visit Diagnoses Not on filedocumented in this encounter Care Teams Rough Carpenter Relationship Specialty Start Date End Date Manuel Bingham MD [address] [place] [phone] PCP - General Family Medicine 07/31/24 documented as of this encounter
--- OUTSIDE RECORDS SUMMARY | 2024-10-28 08:30 | XMS_ITS | Encounter Summary ---
Author Organization [employer] ([place], [place], [place], [place]) Address [address] [place] [address] Care Team Providers Care Roller Man Name Role Phone Manuel Bingham MD Primary Care Provider + Encounter Details Date Type Department Care Team (Late st Contact Info) Description 02/24/2020 Transcribed Document [facility] [place] Family Medicine [facility] [place] [address] ProviderJohn MD [address] [place] [address] Social History Tobacco Use Types Packs/Day Years Used Date Smoking Tobacco: Never Assessed Comments Unknown Sex and Gender Information Value Date Recorded Sex Assigned at Not on file Legal Sex Female 4:40 PM CDT Gender Identity Not on file Sexual Orientation Not on file documented as of this encounter Miscellaneous Notes * Cerner Conversion Note - Historical ProviderMD - 02/24/2020 2:54 PM RESIDENTIAL SERVICE TECHNICIAN Patient: JESSICA SAWYER Age: 49 years Sex: Female : 1970 Associated Diagnoses: Clinical diagnosis of COVID-19 Author: PALLAVI LUU, LINE MAINTENANCE SUPERVISOR-EMR Basic Information Time seen: Date & [...] since this morning. Denies tylenol or motrin radiator mechanic. Denies soa or chest pain. . Review [...] Surgical history: heart cath. Endometrial Ablation. Cholecystectomy; (44923). colonoscopy. d&c. right carpal tunnel and right [...] EST Height Source Stated Height Entry Format [place] Height/Length, MOZAMBICAN (ft) 5 ft Height/Length MOZAMBICAN 4 Inch CLINICALHEIGHT 162.56 cm [place] Body Weight 54.3 kg Weight Source, ED Critical estimated dosing weight Weight Entry Format [place] Weight [place] lb 190 lb CLINICALWEIGHT 86.36 [...] on filedocumented in this encounter Care Teams Roller Man Relationship Specialty Start Date End Date Manuel Bingham MD [address] [place] [address] PCP - General Family Medicine 07/31/24 documented as of this encounter
--- OUTSIDE RECORDS SUMMARY | 2024-10-28 08:30 | XMS_ITS | Encounter Summary ---
Author Organization [employer] ([place], [place], [place], [place]) Address [address] [place] [address] Care Team Providers Care Strap Stitcher Name Role Phone Manuel Bingham MD Primary Care Provider + Encounter Details Date Type Department Care Team (Late st Contact Info) Description 11/29/2019 Transcribed Document [facility] [place] Family Medicine [address] [place] [address] ProviderJohn MD [address] [place] [address] Social History Tobacco Use Types Packs/Day Years [...] On: 11/30/2019 3:11 EDT by Sydni Guerra, counseling center manager Quick Look Assessment Level of Consciousness : Alert, Awake Affect/Behavior : Appropriate, Calm, Cooperative Orientation : Oriented x 4 Skin Temperature : Warm Skin Description : Normal for ethnicity Sydni Guerra Rn - 11/30/2019 3:11 EDT ED General-Functional Assess Information Obtained From : Patient Preferred Communication Mode : Verbal Communication Barrier : None Primary Language : Zambian Any Spiritual/Cultural Needs or Requests : No [...] Rhythm : Regular Nail Bed Color : [place] Chest Pain : No Sydni Guerra Rn [...] 11/30/2019 3:11 EDT Electronically signed by Sana [facility] Conversion Encyclopedia Research Worker Cerner at 07/15/2022 8:09 AM CDT documented in this encounter Plan of Treatment Not on file documented as of this encounter Visit Diagnoses Not on filedocumented in this encounter Care Teams Strap Stitcher Relationship Specialty Start Date End Date Manuel Bingham MD [address] [place] [address] PCP - General Family Medicine 07/31/24 documented as of this encounter
--- OUTSIDE RECORDS SUMMARY | 2024-10-28 08:31 | XMS_ITS | Encounter Summary ---
Author Organization [employer] ([place], [place], [place], [place]) Address [address] [place] [address] Care Team Providers Care Fuel Agent Name Role Phone Manuel Bingham MD Primary Care Provider + Encounter Details Date Type Department Care Team (Late st Contact Info) Description 11/30/2019 Transcribed Document [facility] Radiology [address] [place] [address] Devyn Roman MD [address] [place] [address] Dept. of Emergency Medicine [place] [id number] Social History Tobacco Use Types Packs/Day Years [...] Surgical history: heart cath. Endometrial Ablation. Cholecystectomy; (27419). colonoscopy. d&c. right carpal tunnel and right [...] medicine, Medical Plan Condition: Stable. Prescriptions: Prescription Training Program Assistant Pharmacy: albuterol [facility] free 90 mcg/inh inhalation [...] on filedocumented in this encounter Care Teams Fuel Agent Relationship Specialty Start Date End Date Manuel Bingham MD [address] [place] [phone] PCP - General Family Medicine 07/31/24 documented as of this encounter
--- OUTSIDE RECORDS SUMMARY | 2024-10-28 08:31 | XMS_ITS | Encounter Summary ---
Author Organization [employer] ([place], [place], [place], [place]) Address [address] [place] [address] Care Team Providers Care Edging Machine Setter Name Role Phone Manuel Bingham MD Primary Care Provider + Encounter Details Date Type Department Care Team (Late st Contact Info) Description 11/30/2019 Transcribed Document [facility] [place] [facility] [place] [address] ProviderJohn MD [address] [place] [address] Social History Tobacco Use Types Packs/Day Years [...] on filedocumented in this encounter Care Teams Edging Machine Setter Relationship Specialty Start Date End Date Manuel Bingham MD [address] [place] [address] PCP - General Family Medicine 07/31/24 documented as of this encounter
--- OUTSIDE RECORDS SUMMARY | 2024-10-28 08:31 | XMS_ITS | Referral Summary ---
Author Organization [employer] ([place], [place], [place], [place]) Address [address] [place] [address] Care Team Providers Care Ceramic Engineering Professor Name Role Phone Manuel Bingham MD Primary Care Provider [phone] Encounters Date Type Department Care Team Description 07/31/2024 9:59 PM EDT - 08/01/2024 1:23 AM EDT Emergency [facility] Emergency Department [address] [place] [address] Carlos Casarez MD Generalized abdominal [...] electronically signed by James Orozco MD Voice heater engineer helper technology (Power [email or web address]) is used for the dictation of this note and sound-alike words might be erroneously placed despite reviewing this note for accuracy. Errors in dictation may reflect use of voice recognition software and not all errors in heater engineer helper may have been detected prior to signing. [...] electronically signed by James Orozco MD Voice heater engineer helper technology (Bracketze) is used for the dictation of this note and sound-alike words might be erroneously placed despite reviewing this note for accuracy. Errors in dictation may reflect use of voice recognition software and not all errors in heater engineer helper may have been detected prior to signing. [...] ORDERABLES Final Res ult Performing Organization Address City/[facility]/ZIP Co de Phone Number [facility] [address] [phone] * Prothrombin time/INR (07/31/2024 11:26 PM EDT) [facility] Protime 9.7 9.0 - 12.0 seconds 07/31/2024 [...] ORDERABLES Final Res ult Performing Organization Address [facility] Co de Phone Number [facility] [address] [phone] * (ABNORMAL) Lipase (07/31/2024 11:26 PM EDT) [facility] Lipase 103(H) 13 - 75 U/L 07/31/2024 11:49 PM EDT [facility] Blood Venipuncture / Unknown 07/31/2024 11:26 PM EDT 07/31/2024 11:27 PM EDT Carlos Casarez MD LAB BLOOD ORDERABLES Final Res ult Performing Organization Address City/[facility]/ZIP Co de Phone Number [facility] [address] [phone] * (ABNORMAL) Comprehensive metabolic panel (07/31/2024 11:26 PM EDT) [facility] Sodium 138 136 - 146 meq/L 07/31/2024 11:49 PM [facility] Potassium 4.0 3.5 - 5.1 meq/L 07/31/2024 11:49 PM [facility] Chloride 108 102 - 112 meq/L 07/31/2024 11:49 PM [facility] CO2 25 21 - 32 meq/L 07/31/2024 11:49 PM [facility] Calcium 9.2 8.5 - 10.1 mg/dL 07/31/2024 11:49 PM [facility] Glucose 156(H) 74 - 106 mg/dL 07/31/2024 11:49 PM [facility] BUN 20 7 - 22 mg/dL 07/31/2024 11:49 PM [facility] Creatinine 1.13(H) 0.55 - 1.02 mg/dL 07/31/2024 11:49 PM [facility] BUN/Creatinine 18 8 - 20 07/31/2024 11:49 PM [facility] Albumin 3.2(L) 3.4 - 5.0 g/dL 07/31/2024 11:49 PM [facility] Alkaline Phosphatase 69 27 - 136 U/L 07/31/2024 11:49 PM [facility] ALT 23 12 - 78 U/L 07/31/2024 11:49 PM [facility] AST 17 5 - 37 U/L 07/31/2024 11:49 PM [facility] Total Bilirubin 0.2 0.2 - 1.3 mg/dL 07/31/2024 11:49 PM [facility] Protein, Total 7.1 6.4 - 8.2 gm/dL 07/31/2024 11:49 PM [facility] Anion Gap 9 9 - 20 07/31/2024 11:49 PM [facility] A/G Ratio 0.8(L) 1.1 - 2.5 07/31/2024 11:49 PM [facility] Globulin 3.9 1.5 - 4.5 [...] ORDERABLES Final Res ult [facility] [address] [place] [address], [facility] [phone] * (ABNORMAL) Urinalysis, Reflex Microscopic and Culture If Indicated (07/31/2024 11:22 PM EDT) Color, UA Light Yellow 07/31/2024 11:31 PM EDT [facility] Clarity, UA Turbid(A) Clear 07/31/2024 11:31 PM EDT [facility] Specific [place], UA 1.013 1.005 - 1.030 07/31/2024 11:31 [...] Carlos Casarez MD URINE ORDERABLES Final Result [facility] [address] [place] [address], [facility] [phone] * (ABNORMAL) Urinalysis Microscopic Only (07/31/2024 11:22 [...] Carlos Casarez MD URINE ORDERABLES Final Result [facility] [address] [place] [address], [facility] [phone] from Last 3 Months Insurance [employer] MEDICARE HMO Care Teams Ceramic Engineering Professor Relationship Specialty Start Date End Date Manuel Bingham MD [address] [place] [address] PCP - General Family Medicine 07/31/24
--- NOTE | 2024-10-28 08:45 | MR_ITS ---
FINAL REPORT TECHNIQUE: Multiplanar and multisequence MR imaging was performed through the lumbar spine before and after contrast administration. CLINICAL HISTORY: fall fall out of truck on 10/17 numbness, pain and tingling down legs 20 ml prohance COMPARISON: 07/31/2021 FINDINGS: The vertebral bodies are normally aligned. The vertebral body heights are preserved. There is no bone marrow edema. There is no abnormal bone marrow enhancement. The cord terminates at L1. There is normal signal within the distal cord. There is no abnormal enhancement in the distal cord. There is no acute paraspinal abnormality. There is no loculated fluid collection. L1-L2: Bilateral facet osteoarthropathy. No focal disc herniation. No central canal stenosis. No neural foraminal narrowing. L2-L3: Facet osteoarthropathy. No focal disc herniation. No central canal stenosis or neural foraminal narrowing. L3-L4: Annular disc bulge with degenerative endplate changes and facet osteoarthropathy. Mild central canal stenosis, worse since the prior exam. Mild bilateral foraminal narrowing is also slightly worse. L4-L5: Annular disc bulge with degenerative endplate changes and facet osteoarthropathy. Stable mild central canal stenosis and qoqtn-qrbpmom-hmfq-left moderate neural foraminal narrowing. L5-S1: Annular disc bulge. No central canal stenosis. Mild bilateral neural foraminal narrowing is stable. IMPRESSION: No acute osseous abnormality. Multilevel degenerative disc disease, worse at L3-4 and stable at L4-5. Reviewed, Interpreted and Dictated by Radha Craft MD Transcribed by Hedy Galvan Authenticated and [facility]
[2024-10-28] MEDS: SODIUM CHLORIDE 0.9% 10ML SYR (RAD ONLY) 10 ML IV (09:18)
[2024-10-28] MEDS: GADOTERIDOL INJ 20ML SYRINGE 20 ML IV (09:18)
== END 2024-10-28 23:59 | disposition home or self-care (01) ==
LOC: RAD 08:20
PROVIDERS: PCP Family Medicine; Visit Provider Family Medicine
DX: M51.16 Intervertebral disc disorders with radiculopathy, lumbar region (principal); L30.9 Dermatitis, unspecified
CPT/HCPCS: 72158; A9576

== ENCOUNTER 2024-11-04 13:20 | Outpatient (CLI) | payer OTHER, MEDICARE, MEDICAID, SELFPAY ==
--- OUTSIDE RECORDS SUMMARY | 2024-11-05 10:03 | XMS_ITS | Clinical Summary ---
[facility] Address [address] [place] [address] Care Team Providers Care Bingo Attendant Name Role Phone Juan M Manjinder Styles DO Primary Care Provider [phone] Allergies No known active allergies Medications aspirin [...] Description 12/16/2024 9:30 AM EDT Office Visit [facility] [address] [facility] [address] [place] [address] 12/16/2024 10:00 AM EDT Office Visit [facility] [address] [facility] [address] [place] [address] Manjinder Sauceda MD [address] [place] [address] 12/16/2024 11:00 AM EDT Office Visit [facility] OBGYN [address] [place] [address] Manjinder Franklin MD [address] [facility] [address] [place] [address] Health Maintenance Due Date Last Done Comments [...] Final Result from Last 3 Months Insurance [facility] MEDICARE ADVANTAGE HMO MEDICARE A & B Care Teams Bingo Attendant Relationship Specialty Start Date End Date Manjinder Mcgowan DO [address] [place] [address] [address] [place] [address] PCP - General Internal Medicine 06/08/24
--- OUTSIDE RECORDS SUMMARY | 2024-11-05 10:03 | XMS_ITS | Encounter Summary ---
Author Organization [employer] ([place], [place], [place], [place]) Address [address] [place] [address] Care Team Providers Care Marketing Copywriter Name Role Phone Manuel Bingham MD Primary Care Provider + Encounter Details Date Type Department Care Team (Late st Contact Info) Description 05/27/2019 Transcribed Document [facility] [place] Family Medicine [address] [place] [address] ProviderJohn MD [address] [place] [address] Social History Tobacco Use Types Packs/Day Years Used Date Smoking Tobacco: Never Assessed Comments Unknown Sex and Gender Information Value Date Recorded Sex Assigned at Not on file Legal Sex Female 4:40 PM CDT Gender Identity Not on file Sexual Orientation Not on file documented as of this encounter Miscellaneous Notes * Cerner Conversion Note - Historical ProviderMD - 05/27/2019 6:13 PM DIE REPAIRER TRIMMER DIES [place] Suicide Severity Rating Scale (C-SSRS) Entered On: 05/27/2019 19:40 EST Performed On: 05/27/2019 19:40 EST by JUDIE CELIS RN [place] Suicide Severity Rating Scale (C-SSRS) CSSRS Past Month Wish to be : No CSSRS Past Month Suicidal Thoughts : No CSSRS Lifetime Suicide Behavior : No Suicide Severity Rating Score : 0 Suicide Severity Rating : No Additional Care Required at this time JUDIE CELIS RN - 05/27/2019 19:40 EST Electronically signed by Sana [facility] Conversion Aircraft Cabin Cleaner Cerner at 07/15/2022 8:09 AM CDT documented in this encounter Plan of Treatment Not on file documented as of this encounter Visit Diagnoses Not on filedocumented in this encounter Care Teams Marketing Copywriter Relationship Specialty Start Date End Date Manuel Bingham MD [address] [place] [address] PCP - General Family Medicine 07/31/24 documented as of this encounter
--- OUTSIDE RECORDS SUMMARY | 2024-11-05 10:03 | XMS_ITS | Encounter Summary ---
Author Organization [employer] ([place], [place], [place], [place]) Address [address] [place] [address] Care Team Providers Care Concrete Engineering Technician Name Role Phone Manuel Bingham MD Primary Care Provider + Encounter Details Date Type Department Care Team (Late st Contact Info) Description 08/24/2021 Transcribed Document [facility] Family Medicine [facility] [place] [address] ProviderJohn MD [address] [place] [address] Social History Tobacco Use Types Packs/Day Years [...] graduated high school. 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 She is single with two children. She was previously , although she did not recall when she or how long she has been . Ms. Sawyer currently attends outpatient counseling and she receives psychopharmacological intervention at an unspecified clinic in [place]. She referred to her therapist as, ??? [...] Sawyer was unaware that she was in [place] for the assessment. She stated she was currently in [place]. She was aware of the current advertising vice president. She was able to tell [...] and depression. This note was dictated using Ziftit voice recognition software. Cc: Sweta Lion D.O. Electronically signed by Sana [facility] Conversion Electrical Plumbing Supervisor Cerner at 07/15/2022 8:24 AM CDT documented in this encounter Plan of Treatment Not on file documented as of this encounter Visit Diagnoses Not on filedocumented in this encounter Care Teams Concrete Engineering Technician Relationship Specialty Start Date End Date Manuel Bingham MD [address] [place] [address] PCP - General Family Medicine 07/31/24 documented as of this encounter
--- OUTSIDE RECORDS SUMMARY | 2024-11-05 10:03 | XMS_ITS | Encounter Summary ---
Author Organization [employer] ([place], [place], [place], [place]) Address [address] [place] [address] Care Team Providers Care Chemical Treatment Plant Technician Name Role Phone Manuel Bingham MD Primary Care Provider + Encounter Details Date Type Department Care Team (Late st Contact Info) Description 05/27/[address] [facility] [place] [address] [place] [address] ProviderJohn MD [address] [place] [address] Social History Tobacco Use Types Packs/Day Years Used Date Smoking Tobacco: Never Assessed Comments Unknown Sex and Gender Information Value Date Recorded Sex Assigned at Not on file Legal Sex Female 4:40 PM CDT Gender Identity Not on file Sexual Orientation Not on file documented as of this encounter Miscellaneous Notes * Cerner Conversion Note - John ProviderMD - 05/27/2019 9:29 PM ASSISTANT TO THE DIRECTOR ED Discharge Entered On: 05/27/2019 21:29 EST [...] 05/27/2019 21:29 EST Electronically signed by Sana, [facility] Conversion Cooking Chef Cerner at 07/15/2022 8:13 AM CDT documented in this encounter Plan of Treatment Not on file documented as of this encounter Visit Diagnoses Not on filedocumented in this encounter Care Teams Chemical Treatment Plant Technician Relationship Specialty Start Date End Date Manuel Bingham MD [address] [place] [address] PCP - General Family Medicine 07/31/24 documented as of this encounter
--- OUTSIDE RECORDS SUMMARY | 2024-11-05 10:03 | XMS_ITS | Encounter Summary ---
Author Organization [employer] ([place], [place], [place], [place]) Address [address] [place] [address] Care Team Providers Care Manager Oracle Name Role Phone Manuel Bingham MD Primary Care Provider + Encounter Details Date Type Department Care Team (Late st Contact Info) Description 05/27/[address] [facility] [address] [place] [address] Devyn Gross MD [address] [place] [address] Dept. of [place] [address] Social History Tobacco Use Types Packs/Day Years [...] Surgical history: heart cath. Endometrial Ablation. Cholecystectomy; (91759). colonoscopy. d&c. right carpal tunnel and right [...] EST Height Source Stated Height Entry Format Mason Height/Length, [place] (ft) 5 ft Height/Length [place] 0 Inch CLINICALHEIGHT 152.4 cm [place] Body Weight 45.16 kg Weight Source, ED Critical estimated dosing weight Weight Entry Format Mason Weight [place] lb 193 lb CLINICALWEIGHT 87.73 kg Body [...] filedocumented in this encounter Care Teams Manager Oracle Relationship Specialty Start Date End Date Manuel Bingham MD [address] [place] [address] PCP - General Family Medicine 07/31/24 documented as of this encounter
--- OUTSIDE RECORDS SUMMARY | 2024-11-05 10:04 | XMS_ITS | Encounter Summary ---
Author Organization [employer] ([place], [place], [place], [place]) Address [address] [place] [address] Care Team Providers Care Tubing Mill Setter Name Role Phone Manuel Bingham MD Primary Care Provider + Encounter Details Date Type Department Care Team (Late st Contact Info) Description 02/28/2020 Transcribed Document [facility] Family Medicine [address] [place] [address] ProviderJohn MD [address] [place] [address] Social History Tobacco Use Types [...] John Frank MD - 02/28/2020 5:51 [place] [address] JESSICA SAWYER :1970 Visit Time:02/27/2020 Your Visit [...] Follow Up with Follow-up with Patient Resource Planer Tailer at [phone] in 2 to 3 days When Within [...] range between ( 1.0 and 7.0 ) [place] #: 0.24 K/uL -- Normal range between ( 0.24 and 0.82 ) [place] #: 0.00 K/uL -- Normal range between ( 0.04 and 0.54 ) [place] %: 4.9 % -- Normal range between [...] if you have questions about pets: https://www.cdc.gov/coronavirus/2019- ncov/faq.html#ZBOLV98xkwjuzt Monitor your symptoms. ??? Common symptoms of [...] and need to call 911, notify the pellet press operator that you have or think you [...] clean your hands with an alcohol-based hand edge banding off bearer that contains at least 60% alcohol. Clean your hands often. ??? Wash your handsoften with soap and water for at least 20 seconds. This is especially important after blowing your nose, coughing, or sneezing; going to the bathroom; and before eating or preparing food. ??? Use hand edge banding off bearer if soap and water are not available. Use an alcohol-based hand edge banding off bearer with at least 60% alcohol, covering all [...] and water or put them in the evp. Clean all high-touch surfaces everyday. ??? Clean [...] body fluids on them. ??? Use household business consult and disinfectants. Clean the area or item [...] 07/13/2019 Document Revised: 07/16/2019 Document Reviewed: 07/13/2019 AOL Patient Education ?? 2020 Shopnlist. COVID-19: How to Protect Yourself and Others Know how it spreads ??? There is currently no vaccine to prevent coronavirus disease 2019 (COVID-19). ??? The best way to prevent illness is to avoid being exposed to this virus. ??? The virus is thought to spread mainly from jowzic-kc-xronyw. ? Between people who are in close [...] are not readily available, use a hand edge banding off bearer that contains at least 60% alcohol. Cover [...] are at higher risk of getting very sick.https://www.cdc.gov/coronavirus/2019-ncov/wiki-vzctc-zhoxfurdujz/people-a w-ysdale-uoda.html Cover your mouth and nose with a cloth face cover when around others ??? You could spread COVID-19 to others even if you do not feel sick. ??? Everyone should wear a cloth face cover when they have to go out in public, for example to the grocery store or to fruit picker other necessities. ? Cloth face coverings [...] available, clean your hands with a hand edge banding off bearer that contains at least 60% alcohol. Clean and disinfect ??? Clean AND disinfect frequently touched surfaces daily. This includes tables, doorknobs, light switches, countertops, handles, desks, phones, keyboards, toilets, faucets, and sinks. https://www.cdc.gov/coronavirus/2019-ncov/oywmukh-jajqnto-eass/disinfecting-yo ur-home.html ??? If surfaces are dirty, clean them: Use detergent or soap and water prior to disinfection. cdc.gov/coronavirus 07/10/2019 This information is not intended to replace advice given to you by your health care provider. Make sure you discuss any questions you have with your health care provider. Document Released: 07/13/2019 Document Revised: 07/16/2019 Document Reviewed: 07/13/2019 Elsevier Patient Education ?? 2020 Shopnlist. COVID-19 Frequently Asked Questions COVID-19 (coronavirus disease) is an infection that is caused by a large family of viruses. Some viruses cause illness in people and others cause illness in animals like camels, cats, and bats. In some cases, the viruses that cause illness in animals can spread to humans. Where did the coronavirus come from? In February 2019, [place] told the World Health Organization (WHO) of several cases of lung disease (human respiratory illness). These cases were linked to an open seafood and livestock market in the city of [facility]. The link to the seafood and [...] and virus naming World Health Organization (WHO): www.who.int/emergencies/diseases/resut-xaxqdloqqsr-1231/technical-guidance/nam kul-fek-amnpyiihucx-disease-(covid-2019)-qcl-ikf-bdjoi-sihr-nmomfi-xy Who is at risk for complications from [...] relieve his or her symptoms by using whdw-rlo-izqeqoj medicines that treat sneezing, coughing, and runny [...] water are not available, use alcohol-based hand edge banding off bearer. ??? Avoid touching your face, mouth, nose, [...] (CDC): www.cdc.gov/coronavirus/2019-ncov/travelers/index.html ??? World Health Organization (WHO): www.who.int/emergencies/diseases/ersky-jejonwksjre-0233/travel-advice Know the risks and take action to [...] water are not available, use alcohol-based hand edge banding off bearer. ??? Cough or sneeze into a tissue, [...] in hot, soapy water or use a evp. Air-dry your dishes. ??? Wash laundry in [...] Organization (WHO) ??? Information and news updates: www.who.int/emergencies/diseases/wadud-wefkpiadvul-5910 ??? Coronavirus health topic: www.who.int/health-topics/coronavirus ??? Questions and answers on COVID-19: www.who.int/news-room/q-a-detail/z-b-whtaatuoosdsw ??? Global tracker: who.Shun[employer] Software [place] Academy of Pediatrics (AAP) ??? Information for families: www.healthychildren.org/[place]/health-issues/conditions/chest-lungs/Pages/201 6-Hxydu-Vyltlurfian.aspx The coronavirus situation is changing rapidly. Check [...] 07/13/2019 Document Revised: 07/13/2019 Document Reviewed: 07/13/2019 AOL Patient Education ?? 2020 AOL Inc. Emergency Awareness and Preventative Care STROKE [...] Assistance with quitting is available by contacting 0-358-HRCFNOW. This is a free resource providing counseling, support, and referral. Or you may contact your personal physician. [place] Suicide Prevention Lifeline: The National Suicide Prevention [...] was given the opportunity to ask questions. Patient/Icu Nurse Name: Patient/Icu Nurse Signature: Relationship to Patient: Clinician/Hospital Icu Nurse Signature: Please Provide a Telephone Number Where You Can Be Reached: Is it Permissible To Leave a Message? Date: Electronically signed by Interface, [facility] Conversion Chief Nursing Executive Cerner at 07/15/2022 8:27 AM CDT documented in this encounter Plan of Treatment Not on file documented as of this encounter Visit Diagnoses Not on filedocumented in this encounter Care Teams Tubing Mill Setter Relationship Specialty Start Date End Date Manuel Bingham MD [address] [place] [address] PCP - General Family Medicine 07/31/24 documented as of this encounter
--- OUTSIDE RECORDS SUMMARY | 2024-11-05 10:04 | XMS_ITS | Encounter Summary ---
Author Organization [employer] ([place], [place], [place], [place]) Address [address] [place] [address] Care Team Providers Care Poultry Grader Name Role Phone Manuel Bingham MD Primary Care Provider + Encounter Details Date Type Department Care Team (Late st Contact Info) Description 07/19/2018 Transcribed Document [facility] [place] [address] [place] [address] ProviderJohn MD [address] [place] [address] Social History Tobacco Use Types Packs/Day Years [...] EDT DCP GENERIC CODE Tracking Group : [facility] Tracking Acuity : 4 - Non [...] 07/19/2018 19:33:47 EDT) Problems(Active) Anxiety (SNOMED CT :11136165 ) Name of Problem: Anxiety ; Recorder: Pearl Espino Rn; Confirmation: Confirmed ; Classification: Medical ; Code: [id number] ; Contributor System: FolderBoy ; Last Updated: 12/19/2016 10:22 EDT ; Life Cycle Date: 12/22/2015 ; Life Cycle Status: Active ; Vocabulary: SNOMED CT Endometriosis (SNOMED CT :0867156219 ) Name of Problem: Endometriosis ; Recorder: Pearl Espino Rn; Confirmation: Confirmed ; Classification: Medical ; Code: 3474158783 ; Contributor System: s0cketChart ; Last Updated: 12/22/2015 6:56 EDT ; Life Cycle Date: 12/22/2015 ; Life Cycle Status: Active ; Vocabulary: SNOMED CT HTN (SNOMED CT :7398693660 ) Name of Problem: HTN ; Recorder: Pearl Espino Rn; Confirmation: Confirmed ; Classification: Medical ; Code: 9451177909 ; Contributor System: FolderBoy ; Last Updated: 09/30/2016 16:39 EDT ; Life Cycle Date: 12/22/2015 ; Life Cycle Status: Active ; Vocabulary: SNOMED CT S/P hysterectomy (SNOMED CT :997795053 ) Name of Problem: S/P hysterectomy ; Recorder: BELIA VELÁZQUEZ RN; Confirmation: Confirmed ; Classification: Medical ; Code: 013221454 ; Contributor System: FolderBoy ; Last Updated: 07/19/2018 19:29 EDT ; Life Cycle Date: 07/19/2018 ; Life Cycle Status: Active ; Vocabulary: SNOMED CT Diagnoses(Active) Back pain Date: 07/19/2018 ; Diagnosis Type: Reason For Visit ; Confirmation: Complaint of ; Clinical Dx: Back pain ; Classification: Medical ; Clinical Service: Emergency medicine ; Code: PNED ; Probability: 0 ; Diagnosis Code: [id number] ED Height and Weight Height Source : Measured Height Entry Format : [place] Height, Feet : 5 ft(Converted to: 152 cm, 60 Inch) Height, Inches : 0 Inch(Converted to: 0 ft 0 Inch, 0.00 cm) Clinical Height : 152.4 cm Weight Source, ED : Standing scale Weight Entry Format : [place] Weight, Pounds : 191 lb Clinical Dosing Weight : 86.82 kg Body Surface Area (BSA) : 1.83 m2 Body Mass Index : 37.4 kg/m2 (HI) [place] Body Weight (IBW) : 45.16 kg BELIA [...] BELIA VELÁZQUEZ RN - 07/19/2018 19:28 EDT documented in this encounter Plan of Treatment Not on file documented as of this encounter Visit Diagnoses Not on filedocumented in this encounter Care Teams Poultry Grader Relationship Specialty Start Date End Date Manuel Bingham MD [address] [place] [address] PCP - General Family Medicine 07/31/24 documented as of this encounter
--- OUTSIDE RECORDS SUMMARY | 2024-11-05 10:04 | XMS_ITS | Encounter Summary ---
Author Organization [employer] ([place], [place], [place], [place]) Address [address] [place] [address] Care Team Providers Care Brass Polisher Name Role Phone Manuel Bingham MD Primary Care Provider [phone] Encounter Details Date Type Department Care Team (Late st Contact Info) Description 03/24/2019 Transcribed Document [facility] [place] [address] [place] [address] ProviderJohn MD [address] [place] [address] Social History Tobacco Use Types Packs/Day Years Used Date Smoking Tobacco: Never Assessed Comments Unknown Sex and Gender Information Value Date Recorded Sex Assigned at Not on file Legal Sex Female 4:40 PM CDT Gender Identity Not on file Sexual Orientation Not on file documented as of this encounter Miscellaneous Notes * Cerner Conversion Note - John ProviderMD - 03/24/2019 4:23 PM PARACHUTE OFFICER Electronically signed by [facility] Conversion Bomb Squad Commander Cerner at 07/15/2022 8:16 AM CDT documented in this encounter Plan of Treatment Not on file documented as of this encounter Visit Diagnoses Not on filedocumented in this encounter Care Teams Brass Polisher Relationship Specialty Start Date End Date Manuel Bingham MD [address] [place] [address] PCP - General Family Medicine 07/31/24 documented as of this encounter
--- OUTSIDE RECORDS SUMMARY | 2024-11-05 10:04 | XMS_ITS | Encounter Summary ---
Author Organization Healthcare Address [address] [place] [address] Care Team Providers Care Bulk Intake Worker Name Role Phone Arben Rao MD Primary Care Provider + [phone] Adeola Camara MD Unavailable Encounter Details Date Type Department Care Team (Late st Contact Info) Description 09/20/2024 Orders Only [facility] Sleep Disorder Center [address] [place] [address] Nicki Moeller Social History Tobacco [...] Procedure Name Priority Date/Time Associated Diagnosis Comments [facility] ORDER Routine 09/20/2024 10:07 AM EDT documented in this encounter Results * DME Order (09/20/2024 10:07 AM EDT) [facility] PARACHUTE SUPPLIER NAME [facility] D[facility] PARACHUTE SUPPLIER [...] 09/20/2024 10:0 7 AM EDT Rosita Sutton SERVICE STATION OPERATOR DME ORDERABLES Final R esult [facility] [...] documented as of this encounter Care Teams Bulk Intake Worker Relationship Specialty Start Date End Date Arben Rao MD [address] [place] [address] PCP - General 09/04/21 Adeola Camara MD [address] [facility] [address] [place] [address] Surgeon Neurosurgery 09/04/21 documented as of this encounter
--- OUTSIDE RECORDS SUMMARY | 2024-11-05 10:04 | XMS_ITS | Encounter Summary ---
Author Organization [employer] ([place], [place], [place], [place]) Address [address] [place] [address] Care Team Providers Care Manager Event Name Role Phone Manuel Bingham MD Primary Care Provider +1 Encounter Details Date Type Department Care Team (Late st Contact Info) Description 05/27/2019 Transcribed Document [facility] [place] Family Medicine [address] [place] [address] ProviderJohn MD [address] [place] [address] Social History Tobacco Use Types Packs/Day Years Used Date Smoking Tobacco: Never Assessed Comments Unknown Sex and Gender Information Value Date Recorded Sex Assigned at Not on file Legal Sex Female 4:40 PM CDT Gender Identity Not on file Sexual Orientation Not on file documented as of this encounter Miscellaneous Notes * Cerner Conversion Note - John ProviderMD - 05/27/2019 8:32 PM WELFARE WORKER Electronically signed by [facility] Conversion Mold Filler Plastic Dolls Cerner at 07/15/2022 8:17 AM CDT documented in this encounter Plan of Treatment Not on file documented as of this encounter Visit Diagnoses Not on filedocumented in this encounter Care Teams Manager Event Relationship Specialty Start Date End Date Manuel Bingham MD [address] [place] [address] PCP - General Family Medicine 07/31/24 documented as of this encounter
--- OUTSIDE RECORDS SUMMARY | 2024-11-05 10:04 | XMS_ITS | Encounter Summary ---
Author Organization [employer] ([place], [place], [place], [place]) Address [address] [place] [address] Care Team Providers Care Dual Rate Dealer Name Role Phone Manuel Bingham MD Primary Care Provider + Encounter Details Date Type Department Care Team (Late st Contact Info) Description 03/24/2019 Transcribed Document [facility] [place] [address] [place] [address] ProviderJohn MD [address] [place] [address] Social History Tobacco Use Types Packs/Day [...] Historical MD Monika - 03/24/2019 4:56 PM SEMICONDUCTOR TESTING GROUP LEADER CR Chest 1 Vw Portable Ordered: 03/24/2019 Modified Reason for Exam: chest pain 03/24/2019 15:54 03/24/2019 16:56 (BREANA LUU, LEAD HOUSEKEEPER-EMR) Reviewed by Provider, No further action required x1 documented in this encounter Plan of Treatment Not on file documented as of this encounter Visit Diagnoses Not on filedocumented in this encounter Care Teams Dual Rate Dealer Relationship Specialty Start Date End Date Manuel Bingham MD [address] [place] [phone] PCP - General Family Medicine 07/31/24 documented as of this encounter
--- OUTSIDE RECORDS SUMMARY | 2024-11-05 10:04 | XMS_ITS | Encounter Summary ---
Author Organization [employer] ([place], [place], [place], [place]) Address [address] [place] [address] Care Team Providers Care Manager Case Management Name Role Phone Manuel Bingham MD Primary Care Provider + Encounter Details Date Type Department Care Team (Late st Contact Info) Description 05/27/2019 Transcribed Document [facility] [place] Family Medicine [address] [place] [address] ProviderJohn MD [address] [place] [address] Social History Tobacco Use Types [...] - John ProviderMD - 05/27/2019 9:29 PM [place] [address] JESSICA SAWYER :1970 Visit Time:05/27/2019 Your Visit [...] these instructions at home: Medicines ??? Take owfm-cjg-jwswreu and prescription medicines only as told by [...] 03/14/2001 Document Revised: 11/13/2016 Document Reviewed: 07/10/2015 [employer] Patient Education ?? 2019 [employer]. Pharyngitis Pharyngitis is redness, pain, and swelling [...] Follow these instructions at home: ??? Take ypgk-ebp-imqsrlx and prescription medicines only as told by [...] 03/17/2006 Document Revised: 04/22/2017 Document Reviewed: 04/22/2017 [employer] Patient Education ?? 2019 [employer] Emergency Awareness and Preventative Care STROKE [...] Assistance with quitting is available by contacting [phone]. This is a free resource providing counseling, [...] was given the opportunity to ask questions. Patient/Ship'S Officer Name: Patient/Ship'S Officer Signature: Relationship to Patient: Clinician/Hospital Ship'S Officer Signature: Please Provide a Telephone Number Where You Can Be Reached: Is it Permissible To Leave a Message? Date: Electronically signed by Sana, [facility] Conversion Ball Point Splitter Cerner at 07/15/2022 8:17 AM CDT documented in this encounter Plan of Treatment Not on file documented as of this encounter Visit Diagnoses Not on filedocumented in this encounter Care Teams Manager Case Management Relationship Specialty Start Date End Date Manuel Bingham MD [address] [place] [address] PCP - General Family Medicine 07/31/24 documented as of this encounter
--- OUTSIDE RECORDS SUMMARY | 2024-11-05 10:04 | XMS_ITS | Encounter Summary ---
Author Organization [employer] ([place], [place], [place], [place]) Address [address] [place] [address] Care Team Providers Care Teacher Counselor Name Role Phone Manuel Bingham MD Primary Care Provider + Encounter Details Date Type Department Care Team (Late st Contact Info) Description 05/27/2019 Transcribed Document [facility] [place] [facility] [place] [address] ProviderJohn MD [address] [place], [place] [address] Social History Tobacco Use Types Packs/Day Years Used Date Smoking Tobacco: Never Assessed Comments Unknown Sex and Gender Information Value Date Recorded Sex Assigned at Not on file Legal Sex Female 4:40 PM CDT Gender Identity Not on file Sexual Orientation Not on file documented as of this encounter Miscellaneous Notes * Cerner Conversion Note - John ProviderMD - 05/27/2019 6:13 PM COMPUTER SYSTEMS HARDWARE ANALYST ED Triage Entered On: 05/27/2019 18:35 EST [...] EST DCP GENERIC CODE Tracking Group : [facility] LIS VASQUEZ RN - 05/27/2019 18:33 [...] 05/27/2019 18:35:50 EST) Problems(Active) Anxiety (SNOMED CT :86313485 ) Name of Problem: Anxiety ; Recorder: Pearl Espino RN; Confirmation: Confirmed ; Classification: Medical ; Code: [id number] ; Contributor System: SpringChart ; Last Updated: 12/19/2016 10:22 EDT ; Life Cycle Date: 12/22/2015 ; Life Cycle Status: Active ; Vocabulary: SNOMED CT Endometriosis (SNOMED CT :4169415933 ) Name of Problem: Endometriosis ; Recorder: Pearl Espino RN; Confirmation: Confirmed ; Classification: Medical ; Code: 7059858802 ; Contributor System: PowerChart ; Last Updated: 12/22/2015 6:56 EDT ; Life Cycle Date: 12/22/2015 ; Life Cycle Status: Active ; Vocabulary: SNOMED CT HTN (SNOMED CT :9294864361 ) Name of Problem: HTN ; Recorder: Pearl Espino RN; Confirmation: Confirmed ; Classification: Medical ; Code: 8106385932 ; Contributor System: SpringChart ; Last Updated: 09/30/2016 16:39 EDT ; Life Cycle Date: 12/22/2015 ; Life Cycle Status: Active ; Vocabulary: SNOMED CT S/P hysterectomy (SNOMED CT :057753237 ) Name of Problem: S/P hysterectomy ; Recorder: BELIA VELÁZQUEZ RN; Confirmation: Confirmed ; Classification: Medical ; Code: 224859041 ; Contributor System: PowerChart ; Last Updated: [...] PNED ; Probability: 0 ; Diagnosis Code: [id number] ED Height and Weight Height Source : Stated Height Entry Format : [place] Height, Feet : 5 ft(Converted to: 152 cm, 60 Inch) Height, Inches : 0 Inch(Converted to: 0 ft 0 Inch, 0.00 cm) Clinical Height : 152.4 cm Weight Source, ED : Critical estimated dosing weight Weight Entry Format : [place] Weight, Pounds : 193 lb Clinical Dosing Weight : 87.73 kg Body Surface Area (BSA) : 1.84 m2 Body Mass Index : 37.8 kg/m2 (HI) [place] Body Weight (IBW) : 45.16 kg LIS VASQUEZ RN - 05/27/2019 18:33 EST documented in this encounter Plan of Treatment Not on file documented as of this encounter Visit Diagnoses Not on filedocumented in this encounter Care Teams Teacher Counselor Relationship Specialty Start Date End Date Manuel Bingham MD [address] [place] [address] PCP - General Family Medicine 07/31/24 documented as of this encounter
--- OUTSIDE RECORDS SUMMARY | 2024-11-05 10:04 | XMS_ITS | Encounter Summary ---
Author Organization [employer] ([place], [place], [place], [place]) Address [address] [place] [address] Care Team Providers Care Chicle Grinder Feeder Name Role Phone Manuel Bingham MD Primary Care Provider +1 [phone] Encounter Details Date Type Department Care Team (Late st Contact Info) Description 03/24/2019 Transcribed Document [facility] [place] [address] [place] [address] ProviderJohn MD [address] [place] [address] Social History Tobacco Use Types Packs/Day Years Used Date Smoking Tobacco: Never Assessed Comments Unknown Sex and Gender Information Value Date Recorded Sex Assigned at Not on file Legal Sex Female 4:40 PM CDT Gender Identity Not on file Sexual Orientation Not on file documented as of this encounter Miscellaneous Notes * Cerner Conversion Note - Historical ProviderMD - 03/24/2019 4:15 PM LICENSED NURSING ASSISTANT Pain Assessment Entered On: 03/24/2019 17:06 EST [...] on filedocumented in this encounter Care Teams Chicle Grinder Feeder Relationship Specialty Start Date End Date Manuel Bingham MD [address] [place] [address] PCP - General Family Medicine 07/31/24 documented as of this encounter
--- OUTSIDE RECORDS SUMMARY | 2024-11-05 10:04 | XMS_ITS | Encounter Summary ---
Author Organization [employer] ([place], [place], [place], [place]) Address [address] [place] [address] Care Team Providers Care Job Estimator Name Role Phone Manuel Bingham MD Primary Care Provider +1 Encounter Details Date Type Department Care Team (Late st Contact Info) Description 08/30/2018 Transcribed Document [facility] [place] [facility] [place] [address] ProviderJohn MD [address] [place] [address] Social History Tobacco Use Types Packs/Day Years [...] - Non - Urgent Tracking Group : [facility] ED [facility] CHEIRE LUNA RN - 08/30/2018 20:13 EDT Mode [...] 08/30/2018 20:16:40 EDT) Problems(Active) Anxiety (SNOMED CT :57645268 ) Name of Problem: Anxiety ; Recorder: Pearl Espino Rn; Confirmation: Confirmed ; Classification: Medical ; Code: 33957746 ; Contributor System: KoemeiChart ; Last Updated: 12/19/2016 10:22 EDT ; Life Cycle Date: 12/22/2015 ; Life Cycle Status: Active ; Vocabulary: SNOMED CT Endometriosis (SNOMED CT :8256462321 ) Name of Problem: Endometriosis ; Recorder: Pearl Espino Rn; Confirmation: Confirmed ; Classification: Medical ; Code: 8419810127 ; Contributor System: KoemeiChart ; Last Updated: 12/22/2015 6:56 EDT ; Life Cycle Date: 12/22/2015 ; Life Cycle Status: Active ; Vocabulary: SNOMED CT HTN (SNOMED CT :2694899535 ) Name of Problem: HTN ; Recorder: Pearl Espino Rn; Confirmation: Confirmed ; Classification: Medical ; Code: 5227678132 ; Contributor System: AudioBoo ; Last Updated: 09/30/2016 16:39 EDT ; Life Cycle Date: 12/22/2015 ; Life Cycle Status: Active ; Vocabulary: SNOMED CT S/P hysterectomy (SNOMED CT :187518699 ) Name of Problem: S/P hysterectomy ; Recorder: BELIA VELÁZQUEZ RN; Confirmation: Confirmed ; Classification: Medical ; Code: 997194563 ; Contributor System: AudioBoo ; Last Updated: 07/19/2018 19:29 EDT ; Life Cycle Date: 07/19/2018 ; Life Cycle Status: Active ; Vocabulary: SNOMED CT Diagnoses(Active) Fall Date: 08/30/2018 ; Diagnosis Type: Reason For Visit ; Confirmation: Complaint of ; Clinical Dx: Fall ; Classification: Medical ; Clinical Service: Emergency medicine ; Code: PNED ; Probability: 0 ; Diagnosis Code: [id number] ED Height and Weight Height Source : Stated Height Entry Format : [place] Height, Feet : 5 ft(Converted to: 152 cm, 60 Inch) Height, Inches : 0 Inch(Converted to: 0 ft 0 Inch, 0.00 cm) Clinical Height : 152.4 cm Weight Source, ED : Standing scale Weight Entry Format : [place] Weight, Pounds : 190 lb Clinical Dosing Weight : 86.36 kg Body Surface Area (BSA) : 1.83 m2 Body Mass Index : 37.2 kg/m2 (HI) [place] Body Weight (IBW) : 45.16 kg CHERIE [...] 08/30/2018 20:13 EDT Electronically signed by Sana, [facility] Conversion Parts Order And Stock Clerk Cerner at 07/15/2022 8:13 AM CDT documented in this encounter Plan of Treatment Not on file documented as of this encounter Visit Diagnoses Not on filedocumented in this encounter Care Teams Job Estimator Relationship Specialty Start Date End Date Manuel Bingham MD [address] [place] [address] PCP - General Family Medicine 07/31/24 documented as of this encounter
--- OUTSIDE RECORDS SUMMARY | 2024-11-05 10:04 | XMS_ITS | Encounter Summary ---
Author Organization [employer] ([place], [place], [place], [place]) Address [address] [place] [address] Care Team Providers Care Extraction Operator Name Role Phone Manuel Bingham MD Primary Care Provider +[phone] Encounter Details Date Type Department Care Team (Late st Contact Info) Description 03/24/2019 Transcribed Document [facility] [place] [address] [place] [address] ProviderJohn MD [address], [place] [address] Social History Tobacco Use Types Packs/Day Years Used Date Smoking Tobacco: Never Assessed Comments Unknown Sex and Gender Information Value Date Recorded Sex Assigned at Not on file Legal Sex Female 4:40 PM CDT Gender Identity Not on file Sexual Orientation Not on file documented as of this encounter Miscellaneous Notes * Cerner Conversion Note - Historical ProviderMD - 03/24/2019 2:29 PM CHILD HEALTH ASSOCIATE ED Assessment Entered On: 03/24/2019 15:23 EST [...] Communication Barrier : None Primary Language : Prydeinig Any Spiritual/Cultural Needs or Requests : No Currently in Unsafe Situation : No LAZARO KHALIL RN-Resource - 03/24/2019 15:21 EST Social Habits Smoking [...] Symptoms : None Nail Bed Color : Cuartelez Chest Pain : No LAZARO KHALIL RN-Resource [...] on filedocumented in this encounter Care Teams Extraction Operator Relationship Specialty Start Date End Date Manuel Bingham MD [address] [place] [address] PCP - General Family Medicine 07/31/24 documented as of this encounter
--- OUTSIDE RECORDS SUMMARY | 2024-11-05 10:04 | XMS_ITS | Encounter Summary ---
Author Organization [employer] ([place], [place], [place], [place]) Address [address] [place] [address] Care Team Providers Care Electroplater Apprentice Name Role Phone Manuel Bingham MD Primary Care Provider +1 Encounter Details Date Type Department Care Team (Late st Contact Info) Description 08/30/2018 Transcribed Document [facility] [place] [facility] [place] [address] ProviderJohn MD [address] [place] [address] Social History Tobacco Use Types Packs/Day Years [...] 08/30/2018 22:05 EDT Electronically signed by Sana [facility] Conversion Snow Removal Supervisor Cerner at 07/15/2022 8:23 AM CDT documented in this encounter Plan of Treatment Not on file documented as of this encounter Visit Diagnoses Not on filedocumented in this encounter Care Teams Electroplater Apprentice Relationship Specialty Start Date End Date Manuel Bingham MD [address] [place] [address] PCP - General Family Medicine 07/31/24 documented as of this encounter
--- OUTSIDE RECORDS SUMMARY | 2024-11-05 10:04 | XMS_ITS | Encounter Summary ---
Author Organization [employer] ([place], [place], [place], [place]) Address [address] [place] [place] [address] Care Team Providers Care Film Spooler Name Role Phone Manuel Bingham MD Primary Care Provider + Encounter Details Date Type Department Care Team (Late st Contact Info) Description 08/31/2018 Transcribed Document [facility] [place] [address] [place] [address] ProviderJohn MD [address] [place] [address] Social History Tobacco Use Types Packs/Day Years [...] Reviewed by Provider, No further action required [id number] Electronically signed by Sana [facility] Conversion Twist Packer Cerner at 07/15/2022 8:15 AM CDT documented in this encounter Plan of Treatment Not on file documented as of this encounter Visit Diagnoses Not on filedocumented in this encounter Care Teams Film Spooler Relationship Specialty Start Date End Date Manuel Bingham MD [address] [place] [address] PCP - General Family Medicine 07/31/24 documented as of this encounter
--- OUTSIDE RECORDS SUMMARY | 2024-11-05 10:04 | XMS_ITS | Encounter Summary ---
Author Organization [employer] ([place], [place], [place], [place]) Address [address] [place] [address] Care Team Providers Care Named Account Executive Name Role Phone Manuel Bingham MD Primary Care Provider + Encounter Details Date Type Department Care Team (Late st Contact Info) Description 08/30/2018 Transcribed Document [facility] Family Medicine [facility] [place] [address] ProviderJohn MD [address] [place] [id number] Social History Tobacco Use Types Packs/Day Years Used Date Smoking Tobacco: Never Assessed Comments Unknown Sex and Gender Information Value Date Recorded Sex Assigned at Not on file Legal Sex Female 4:40 PM CDT Gender Identity Not on file Sexual Orientation Not on file documented as of this encounter Miscellaneous Notes * Cerner Conversion Note - John ProviderMD - 08/30/2018 10:01 [place] [address] JESSICA SAWYER :1970 Visit Time:08/30/2018 Your Visit [...] computer, smartphone, or tablet. Just go to [employer] to get started. Questions? Call . You [...] symptoms worsen hope you feel better! Where: [facility] [address]ND FLOOR [address] [facility] (1) Follow Up with NO PRIM DR QUINTERO When Within 2 to 3 days Allergies No Known Medication Allergies Immunizations This Visit No Immunizations Found Medications What How Much When Instructions Next Dose acetaminophen (Tylenol Extra Strength 500 mg oral tablet) 1 Tablet(s) Oral Every 6 Hours as needed for for pain Duration: 5 Day(s) Pickup at [facility] methocarbamol (Robaxin 500 mg oral tablet) 2 Tablet(s) Oral Four Times A Day Duration: 7 Day(s) Pickup at [facility] aspirin (aspirin 81 mg oral tablet) 1 Tablet(s) Oral Every Day bisoprolol (bisoprolol 5 mg oral tablet) 0.5 Tablet(s) Oral Every Day bumetanide (Bumex) Every Day conjugated estrogens (Premarin 0.9 mg oral tablet) 1 Tablet(s) Oral Every Day meloxicam (meloxicam 7.5 mg oral tablet) Oral Every Day meloxicam (meloxicam 7.5 mg oral tablet) 1 Tablet(s) Oral Every Day Duration: 7 Day(s) Pickup at [facility] spironolactone (spironolactone 100 mg oral tablet) 1 Tablet(s) Oral Every Day [facility] [address] VALENCIA Quinn [phone] The home medications listed are only as [...] are sitting or lying down. ??? Take ryrn-fqu-vasbqle and prescription medicines only as told by [...] 03/17/2006 Document Revised: 12/04/2016 Document Reviewed: 10/04/2016 [employer] Patient Education ?? 2019 [employer] Back Exercises If you have pain [...] 04/19/2011 Document Revised: 10/22/2017 Document Reviewed: 05/11/2015 [employer] Patient Education ?? 2019 [employer]. Emergency Awareness and Preventative Care STROKE is [...] Assistance with quitting is available by contacting 0-583-RMCO-NOW. This is a free resource providing counseling, [...] was given the opportunity to ask questions. Patient/Room Service Attendant Name: Patient/Room Service Attendant Signature: Relationship to Patient: Clinician/Hospital Room Service Attendant Signature: Please Provide a Telephone Number Where You Can Be Reached: Is it Permissible To Leave a Message? Date: documented in this encounter Plan of Treatment Not on file documented as of this encounter Visit Diagnoses Not on filedocumented in this encounter Care Teams Named Account Executive Relationship Specialty Start Date End Date Manuel Bingham MD [address] [place] [address] PCP - General Family Medicine 07/31/24 documented as of this encounter
--- OUTSIDE RECORDS SUMMARY | 2024-11-05 10:04 | XMS_ITS | Encounter Summary ---
Author Organization [employer] ([place], [place], [place], [place]) Address [address] [place] [address] Care Team Providers Care Screwhead Stoner And Polisher Name Role Phone Manuel Bignham MD Primary Care Provider [phone] Encounter Details Date Type Department Care Team (Late st Contact Info) Description 08/30/2018 Transcribed Document [facility] Family Medicine [address] [place] [address] ProviderJohn MD [address] [place] [address] Social History Tobacco Use Types Packs/Day Years [...] 08/30/2018 9:58 PM CDT Electronically signed by [facility] Conversion Player Development Executive Cerner at 07/15/2022 8:11 AM CDT documented in this encounter Plan of Treatment Not on file documented as of this encounter Visit Diagnoses Not on filedocumented in this encounter Care Teams Screwhead Stoner And Polisher Relationship Specialty Start Date End Date Manuel Bingham MD [address] [place] [address] PCP - General Family Medicine 07/31/24 documented as of this encounter
--- OUTSIDE RECORDS SUMMARY | 2024-11-05 10:04 | XMS_ITS | Encounter Summary ---
Author Organization Healthcare Address [address] [place] [address] Care Team Providers Care Manager Operations And Procurement Name Role Phone Arben Rao MD Primary Care Provider + [phone] Adeola Camara MD Unavailable Encounter Details Date Type Department Care Team (Late st Contact Info) Description 09/02/2024 Results Follow-Up [facility] Sleep Disorder Center [address] [place] [address] Esteban Sutton, BERNARDO [address] [place] [address] Social History Tobacco Use Types [...] as of this encounter Care Teams Manager Operations And Procurement Relationship Specialty Start Date End Date Arben Rao MD [address] [place] [address] PCP - General 09/04/21 Adeola Camara MD [address] [facility] [address] [place] [address] Surgeon Neurosurgery 09/04/21 documented as of this encounter
--- OUTSIDE RECORDS SUMMARY | 2024-11-05 10:04 | XMS_ITS | Encounter Summary ---
Author Organization [employer] ([place], [place], [place], [place]) Address [address] [place] [address] Care Team Providers Care Supervisor Elementary Education Name Role Phone Manuel Bingham MD Primary Care Provider + Encounter Details Date Type Department Care Team (Late st Contact Info) Description 03/24/2019 Transcribed Document [facility] Family Medicine [address] [place] [address] ProviderJohn MD [address] [place] [address] Social History Tobacco Use Types Packs/Day Years Used Date Smoking Tobacco: Never Assessed Comments Unknown Sex and Gender Information Value Date Recorded Sex Assigned at Not on file Legal Sex Female 4:40 PM CDT Gender Identity Not on file Sexual Orientation Not on file documented as of this encounter Miscellaneous Notes * Cerner Conversion Note - Historical ProviderMD - 03/24/2019 2:29 PM TEXTILE BROKER [place] Suicide Severity Rating Scale (C-SSRS) Entered On: 03/24/2019 15:23 EST Performed On: 03/24/2019 15:21 EST by LAZARO KHALIL RN-Resource [place] Suicide Severity Rating Scale (C-SSRS) CSSRS Past [...] filedocumented in this encounter Care Teams Supervisor Elementary Education Relationship Specialty Start Date End Date Manuel Bingham MD [address] [place] [address] PCP - General Family Medicine 07/31/24 documented as of this encounter
--- OUTSIDE RECORDS SUMMARY | 2024-11-05 10:04 | XMS_ITS | Encounter Summary ---
Author Organization [employer] ([place], [place], [place], [place]) Address [address] [place] [address] Care Team Providers Care Leach Tank Tender Name Role Phone Manuel Bingham MD Primary Care Provider + Encounter Details Date Type Department Care Team (Late st Contact Info) Description 07/19/2018 Transcribed Document [facility] Family [place] [facility] [place] [address] ProviderJohn MD [address] [place] [address] Social History Tobacco Use Types Packs/Day Years Used Date Smoking Tobacco: Never Assessed Comments Unknown Sex and Gender Information Value Date Recorded Sex Assigned at Not on file Legal Sex Female 4:40 PM CDT Gender Identity Not on file Sexual Orientation Not on file documented as of this encounter Miscellaneous Notes * Cerner Conversion Note - John ProviderMD - 07/19/2018 9:07 [place] [address] JESSICA SAWYER :1970 Visit Time:07/19/2018 Your Visit Summary Your Care Team Admitting Physician - SAMUEL DONOHUE MD-EMR Attending Physician - SAMUEL DONOHUE MD-EMR Primary Care Physician - GINA EVANGELISTA MD-OBG INGRID, NO DR Referring Physician - INGRID, SELF REFERRED Your Diagnosis Back pain Lumbar back pain Patient Portal Reminder: Be sure to sign up for the [facility] patient portal, which gives you 21/10 access to your medical information ??? including these discharge instructions ??? using your computer, smartphone, or tablet. Just go to [employer] to get started. Questions? Call . You [...] REPORT YOUR PAIN IS WORSE Where: [address] [facility] 2[address] [place] [address] [facility] (1) Follow Up with NO PRIM DR QUINTERO When Within 2 to 3 days Allergies No Known Medication Allergies Immunizations This Visit No Immunizations Found Medications What How Much When Instructions Next Dose New acetaminophen-hydrocodone ([place] 5 mg-325 mg oral tablet) 1 Tablet(s) [...] and flexible. ??? Do notsit, drive, or trimmer buffing wheel one place for more than 30 minutes. [...] Assistance with quitting is available by contacting 8-947-FTRCNOW. This is a free resource providing counseling, support, and referral. Or you may contact your personal physician. [place] Suicide Prevention Lifeline: The National Suicide Prevention [...] was given the opportunity to ask questions. Patient/Shorts Sifter Name: Patient/Shorts Sifter Signature: Relationship to Patient: Clinician/Hospital Shorts Sifter Signature: Please Provide a Telephone Number Where You Can Be Reached: Is it Permissible To Leave a Message? Date: Electronically signed by Interface, [facility] Conversion Account Executive Software Sales Cerner at 07/15/2022 8:30 AM CDT documented in this encounter Plan of Treatment Not on file documented as of this encounter Visit Diagnoses Not on filedocumented in this encounter Care Teams Leach Tank Tender Relationship Specialty Start Date End Date Manuel Bingham MD [address] [place] [address] PCP - General Family Medicine 07/31/24 documented as of this encounter
--- OUTSIDE RECORDS SUMMARY | 2024-11-05 10:04 | XMS_ITS | Encounter Summary ---
Author Organization Healthcare Address [address] [place] [address] Care Team Providers Care Parcel Post Order Clerk Name Role Phone Arben Rao MD Primary Care Provider + [phone] Adeola Camara MD Unavailable Encounter Details Date Type Department Care Team (Late st Contact Info) Description 09/14/2024 Orders Only [facility] Sleep Disorder Center [address] [place] [address] Nicki Moeller Social History Tobacco [...] documented as of this encounter Care Teams Parcel Post Order Clerk Relationship Specialty Start Date End Date Arben Rao MD [address] [place] [address] PCP - General 09/04/21 Adeola Camara MD [address] [address] Surgeon Neurosurgery 09/04/21 documented as of this encounter
--- OUTSIDE RECORDS SUMMARY | 2024-11-05 10:04 | XMS_ITS | Encounter Summary ---
Author Organization [employer] ([place], [place], [place], [place]) Address [address] [place] [address] Care Team Providers Care Sailing Master Name Role Phone Manuel Bingham MD Primary Care Provider [phone] Encounter Details Date Type Department Care Team (Late st Contact Info) Description 03/24/2019 Transcribed Document [facility] Family Medicine [address] [place] [address] ProviderJohn MD [address] [place] [address] Social History Tobacco Use Types Packs/Day Years Used Date Smoking Tobacco: Never Assessed Comments Unknown Sex and Gender Information Value Date Recorded Sex Assigned at Not on file Legal Sex Female 4:40 PM CDT Gender Identity Not on file Sexual Orientation Not on file documented as of this encounter Miscellaneous Notes * Cerner Conversion Note - John ProviderMD - 03/24/2019 5:07 PM DIELECTRIC PRESS OPERATOR ED Discharge Entered On: 03/24/2019 17:07 EST [...] 03/24/2019 17:07 EST Electronically signed by Sana, [facility] Conversion Paid Search Marketing Strategist Cerner at 07/15/2022 8:22 AM CDT documented in this encounter Plan of Treatment Not on file documented as of this encounter Visit Diagnoses Not on filedocumented in this encounter Care Teams Sailing Master Relationship Specialty Start Date End Date Manuel Bingham MD [address] [place] [address] PCP - General Family Medicine 07/31/24 documented as of this encounter
--- OUTSIDE RECORDS SUMMARY | 2024-11-05 10:04 | XMS_ITS | Encounter Summary ---
Author Organization [employer] ([place], [place], [place], [place]) Address [address] [place] [address] Care Team Providers Care Storage Management Architect Name Role Phone Manuel Bingham MD Primary Care Provider + Encounter Details Date Type Department Care Team (Late st Contact Info) Description 03/24/2019 Transcribed Document [facility] Family Medicine [address] [place] [address] ProviderJohn MD [address], [place] [address] Social History Tobacco Use Types Packs/Day Years Used Date Smoking Tobacco: Never Assessed Comments Unknown Sex and Gender Information Value Date Recorded Sex Assigned at Not on file Legal Sex Female 4:40 PM CDT Gender Identity Not on file Sexual Orientation Not on file documented as of this encounter Miscellaneous Notes * Cerner Conversion Note - Historical ProviderMD - 03/24/2019 2:47 PM WATER SAFETY INSTRUCTOR Patient: JESSICA SAWYER Age: 48 years Sex: Female : 1970 Associated Diagnoses: Chest pain, midsternal Author: PALLAVI LUU, INSTRUCTOR OF SOCIOLOGY-EMR Basic Information Time seen: Date & time 03/24/2019 14:40:00. History source: Patient. Arrival mode: Private vehicle. History limitation: None. 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 [...] Surgical history: heart cath. Endometrial Ablation. Cholecystectomy; (06354). colonoscopy. d&c. right carpal tunnel and right [...] EST Height Source Stated Height Entry Format Tumtum Height/Length, YAKUT (ft) 5 ft Height/Length YAKUT 1 Inch CLINICALHEIGHT 154.94 cm [place] Body Weight 47.45 kg Weight Source, ED Standing scale Weight Entry Format Tumtum Weight Ugandan lb 200 lb CLINICALWEIGHT 90.91 kg Body [...] Assessment: ED C-SSRS: ED Clinical Reconciliation: ED hadoop engineer: EKG: Saline Lock Insert: Ordered (Dispatched) CBC [...] % 30.3 % Lymph # 1.84 K/uL Potter % 8.1 % Potter # 0.49 K/uL Eos % 2.0 % Eos # 0.12 K/uL Baso % 0.8 % Baso # 0.05 K/uL Slide Review No PT 9.8 Second(s) INR 1.0 , Lab results : Lab Results 03/24/2019 16:29 EST Troponin I Ultra <0.015 ng/mL . Radiology results: Radiology Results (Last 48 hours) [id number] -- 03/24/2019 14:29 CR Chest 1 Vw [...] Condition: Stable. Disposition: Medically cleared. Prescriptions: Prescription Java Portal Developer Pharmacy: naproxen 500 mg oral tablet (Prescribe): [...] on filedocumented in this encounter Care Teams Storage Management Architect Relationship Specialty Start Date End Date Manuel Bingham MD [address] [place] [address] PCP - General Family Medicine 07/31/24 documented as of this encounter
--- OUTSIDE RECORDS SUMMARY | 2024-11-05 10:04 | XMS_ITS | Clinical Summary ---
Author Organization Healthcare Address [address] [place] [address] Care Team Providers Care Injection Molding Process Technician Name Role Phone Arben Rao MD Primary Care Provider [phone] Adeola Camara MD Unavailable Allergies No known [...] Department Care Team Description 09/20/2024 Orders Only [facility] Sleep Disorder [address] [place] [address] Nicki Moeller 09/14/2024 Orders Only [facility] Sleep Disorder [address] [place] [address] Nicki Moeller 09/02/2024 Results Follow-Up [facility] Sleep Disorder [address] [place] [address] Rosita Sutton APRN 08/25/2024 8:15 PM EDT Clinical Support [facility] Sleep Disorder [address] [place] [address] David Gupta Snoring; History of sleep apnea; At risk for central sleep apnea; Excessive daytime sleepiness; Severe obesity (BMI >= 40) (CMS/HCC) 08/25/2024 [facility] Sleep Disorder Center [address] [place] [address] Madeleine Mireles MD JANAE (obstructive [...] Screening 1970 [facility]-Medicare Annual Wellness (AWV) 1970 [facility]-Infant/Child/Adol SDOH Screenings 1970 [facility]- SDOH Screenings 1988 [...] 2020 [facility]-Zoster Vaccines (1 of 2) 2020 [id number] Vaccine (1 - season) 2023 [facility]-Influenza Vaccine [...] Procedure Name Priority Date/Time Associated Diagnosis Comments [facility] ORDER Routine 09/20/2024 10:07 AM EDT ADULT SLEEP STUDY OVERNIGHT POLYSOMNOGRAPHY Routine 08/25/2024 8:49 PM EDT Snoring History of sleep apnea At risk for central sleep apnea Excessive daytime sleepiness Severe obesity (BMI >= 40) ([facility]) from Last 3 Months Results * DME Order (09/20/2024 10:07 AM EDT) [facility] SUPPLIER NAME [employer] [facility] DME [facility] SUPPLIER PHONE [facility] D[facility] DELIVERY STATUS Completed [facility] D[facility] DELIVERY NOTE [facility] D[facility] REQUESTED DELIVERY DATE 09/20/2024 [facility] ACTUAL DELIVERY DATE 09/20/2024 [facility] ITEM DESCRIPTION CPAP Machine, Resmed [facility] Comment: Qty: 1 Auto Min Pressure: 6 cm Auto Max Pressure: 16 cm Oxygen Usage: None [facility] ITEM DESCRIPTION PAP Mask, Fit to Comfort, 1 per 3 months [facility] Comment:Qty: 1 [facility] ITEM DESCRIPTION PAP Headgear, 1 per 6 months [facility] Comment:Qty: 1 [facility] ITEM DESCRIPTION PAP Humidifier, Heated [facility] Comment:Qty: 1 [facility] ITEM DESCRIPTION PAP Mask Interface Cushion, Fit to Comfort (A7031- 1 per month/ A7032- 2 per month/ A7033 - 2 per month) [facility] Comment:Qty: 1 [facility] ITEM DESCRIPTION Disposable PAP Filter, 2 per 1 month [facility] Comment:Qty: 1 [facility] ITEM DESCRIPTION Non-Disposable PAP Filter, 1 per 6 months [facility] Comment:Qty: 1 [facility] ITEM DESCRIPTION PAP Machine Tubing, Non-Heated, 1 per 3 months [facility] Comment:Qty: 1 [facility] ITEM DESCRIPTION PAP Monitoring, Per device availability [facility] Comment:Qty: 1 [facility] ITEM DESCRIPTION Humidifier Water Chamber, 1 per 6 months [facility] Comment:Qty: 1 [facility] ITEM DESCRIPTION PAP Chinstrap, 1 per 6 months [facility] Comment:Qty: 1 09/20/2024 10:0 7 AM EDT Rosita Sutton SUBSTITUTE TEACHER DME ORDERABLES Final R esult [facility] * Adult Sleep Study Overnight Polysomnography (08/25/2024 8:49 PM EDT) 08/25/2024 8:49 PM EDT Narrative [facility] - 09/01/2024 3:57 PM EDT General Information:See Media Viewer for report. This statement produced by Interface. us Rosita Sutton SUBSTITUTE TEACHER SLEEP C[facility] ORDERABLES Final Result [facility] from Last 3 Months Insurance [facility] MEDICARE Care Teams Injection Molding Process Technician Relationship Specialty Start Date End Date Arben Rao MD [address] [place] [address] PCP - General 09/04/21 Adeola Camara MD [id number] [place] [id number] Surgeon Neurosurgery 09/04/21
--- OUTSIDE RECORDS SUMMARY | 2024-11-05 10:04 | XMS_ITS | Encounter Summary ---
Author Organization [employer] ([place], [place], [place], [place]) Address [address] [place] [address] Care Team Providers Care Greenhouse Laborer Name Role Phone Manuel Bingham MD Primary Care Provider + Encounter Details Date Type Department Care Team (Late st Contact Info) Description 05/27/2019 Transcribed Document [facility] Family Medicine [address] [place] [address] ProviderJohn MD [address] [place] [address] Social History Tobacco Use Types Packs/Day Years Used Date Smoking Tobacco: Never Assessed Comments Unknown Sex and Gender Information Value Date Recorded Sex Assigned at Not on file Legal Sex Female 4:40 PM CDT Gender Identity Not on file Sexual Orientation Not on file documented as of this encounter Miscellaneous Notes * Cerner Conversion Note - Historical ProviderMD - 05/27/2019 6:13 PM REPAIR ELECTRIC MOTOR ASSEMBLER ED Assessment Entered On: 05/27/2019 19:43 EST Performed On: 05/27/2019 19:43 EST by JUDIE CELIS RN ED Quick Look Assessment Level of Consciousness : Alert, Awake Affect/Behavior : Calm, Cooperative Orientation : Oriented x 4 Skin Temperature : Warm Skin Description : Dry JUDIE ECLIS RN - 05/27/2019 19:43 EST ED General-Functional Assess Information Obtained From : Patient Preferred Communication Mode : Verbal Communication Barrier : None Primary Language : Andorran Any Spiritual/Cultural Needs or Requests : No [...] - 05/27/2019 19:43 EST Electronically signed by [facility] Conversion Custom Motorcycle Painter Cerner at 07/15/2022 8:16 AM CDT documented in this encounter Plan of Treatment Not on file documented as of this encounter Visit Diagnoses Not on filedocumented in this encounter Care Teams Greenhouse Laborer Relationship Specialty Start Date End Date Manuel Bingham MD [address] [place] [address] PCP - General Family Medicine 07/31/24 documented as of this encounter
--- OUTSIDE RECORDS SUMMARY | 2024-11-05 10:04 | XMS_ITS | Encounter Summary ---
Author Organization [employer] ([place], [place], [place], [place]) Address [address] [place] [address] Care Team Providers Care Edi Specialist Name Role Phone Manuel Bingham MD Primary Care Provider + Encounter Details Date Type Department Care Team (Late st Contact Info) Description 03/24/2019 Transcribed Document [facility] [place] Family Medicine [address] [place] [address] ProviderJohn MD [address] [place], [place] [address] Social History Tobacco Use Types Packs/Day Years Used Date Smoking Tobacco: Never Assessed Comments Unknown Sex and Gender Information Value Date Recorded Sex Assigned at Not on file Legal Sex Female 4:40 PM CDT Gender Identity Not on file Sexual Orientation Not on file documented as of this encounter Miscellaneous Notes * Cerner Conversion Note - Historical ProviderMD - 03/24/2019 2:29 PM SURPLUS PROPERTY DISPOSAL AGENT ED Triage Entered On: 03/24/2019 14:39 EST Performed On: 03/24/2019 14:37 EST by DALE FUENTES RN ED Triage Across the Room Chief Complaint : C/O CP X1 HR 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 CP STARTED AT REST, + SOA Triage Date/Time : 03/24/2019 14:37 EST DALE FUENTES RN - 03/24/2019 14:37 EST DCP GENERIC CODE Tracking Acuity : 2 - Emergent Tracking Group : [facility] ED [place] DALE FUENTES RN [...] 03/24/2019 14:39:04 EST) Problems(Active) Anxiety (SNOMED CT :17166168 ) Name of Problem: Anxiety ; Recorder: Pearl Espino RN; Confirmation: Confirmed ; Classification: Medical ; Code: [id number] ; Contributor System: Snoobe ; Last Updated: 12/19/2016 10:22 EDT ; Life Cycle Date: 12/22/2015 ; Life Cycle Status: Active ; Vocabulary: SNOMED CT Endometriosis (SNOMED CT :8145752763 ) Name of Problem: Endometriosis ; Recorder: Pearl Espino RN; Confirmation: Confirmed ; Classification: Medical ; Code: [id number] ; Contributor System: PowerChart ; Last Updated: 12/22/2015 6:56 EDT ; Life Cycle Date: 12/22/2015 ; Life Cycle Status: Active ; Vocabulary: SNOMED CT HTN (SNOMED CT :3372317585 ) Name of Problem: HTN ; Recorder: Pearl Espino RN; Confirmation: Confirmed ; Classification: Medical ; Code: [id number] ; Contributor System: Snoobe ; Last Updated: 09/30/2016 16:39 EDT ; Life Cycle Date: 12/22/2015 ; Life Cycle Status: Active ; Vocabulary: SNOMED CT S/P hysterectomy (SNOMED CT :580413679 ) Name of Problem: S/P hysterectomy ; Recorder: BELIA VELÁZQUEZ RN; Confirmation: Confirmed ; Classification: Medical ; Code: [id number] ; Contributor System: PowerChart ; Last Updated: 07/19/2018 19:29 EDT ; Life Cycle Date: 07/19/2018 ; Life Cycle Status: Active ; Vocabulary: SNOMED CT Diagnoses(Active) Chest pain Date: 03/24/2019 ; Diagnosis Type: Reason For Visit ; Confirmation: Complaint of ; Clinical Dx: Chest pain ; Classification: Medical ; Clinical Service: Emergency medicine ; Code: PNED ; Probability: 0 ; Diagnosis Code: [id number] ED Height and Weight Height Source : Stated Height Entry Format : [place] Height, Feet : 5 ft(Converted to: 152 cm, 60 Inch) Height, Inches : 1 Inch(Converted to: 0 ft 1 Inch, 2.54 cm) Clinical Height : 154.94 cm Weight Source, ED : Standing scale Weight Entry Format : [place] Weight, Pounds : 200 lb Clinical Dosing Weight : 90.91 kg Body Surface Area (BSA) : 1.89 m2 Body Mass Index : 37.9 kg/m2 (HI) [place] Body Weight (IBW) : 47.45 kg DALE FUENTES RN - 03/24/2019 14:37 EST Electronically signed by Sana [facility] Conversion Operating System Designer Cerner at 07/15/2022 8:10 AM CDT documented in this encounter Plan of Treatment Not on file documented as of this encounter Visit Diagnoses Not on filedocumented in this encounter Care Teams Edi Specialist Relationship Specialty Start Date End Date Manuel Bingham MD [address] [place] [address] PCP - General Family Medicine 07/31/24 documented as of this encounter
--- OUTSIDE RECORDS SUMMARY | 2024-11-05 10:04 | XMS_ITS | Encounter Summary ---
Author Organization [employer] ([place], [place], [place], [place]) Address [address] [place] [address] Care Team Providers Care Ticket Writer Name Role Phone Manuel Bingham MD Primary Care Provider [phone] Encounter Details Date Type Department Care Team (Late st Contact Info) Description 07/19/2018 Transcribed Document [facility] [place] Family Medicine [address] [place] [address] ProviderJohn MD [address] [place] [address] Social History Tobacco Use Types Packs/Day Years [...] Communication Barrier : None Primary Language : Venezuelan Any Spiritual/Cultural Needs or Requests : No [...] 07/19/2018 19:39 EDT Electronically signed by Sana [facility] Conversion Small Parts Shaper Operator Cerner at 07/15/2022 8:02 AM CDT documented in this encounter Plan of Treatment Not on file documented as of this encounter Visit Diagnoses Not on filedocumented in this encounter Care Teams Ticket Writer Relationship Specialty Start Date End Date Manuel Bingham MD [address] [place] [address] PCP - General Family Medicine 07/31/24 documented as of this encounter
--- OUTSIDE RECORDS SUMMARY | 2024-11-05 10:04 | XMS_ITS | Encounter Summary ---
Author Organization [employer] ([place], [place], [place], [place]) Address [address] [place] [address] Care Team Providers Care Corrugator Name Role Phone Manuel Bingham MD Primary Care Provider + Encounter Details Date Type Department Care Team (Late st Contact Info) Description 03/24/2019 Transcribed Document [facility] [place] [address] [place] [address] ProviderJohn MD [address] [place] [address] Social History Tobacco Use Types [...] - John ProviderMD - 03/24/2019 5:07 [place] [address] JESSICA SAWYER :1970 Visit Time:03/24/2019 Your Visit [...] for as needed for pain Pickup at [facility]/pharmacy #[id number] Pharmacy Information [facility]/pharmacy #[id number]: [address] [place], [place] [phone] The home medications listed are only as [...] range between ( 1.0 and 7.0 ) Arroyo #: 0.49 K/uL -- Normal range between ( 0.24 and 0.82 ) Eos #: 0.12 K/uL -- Normal range between ( 0.04 and 0.54 ) Arroyo %: 8.1 % -- Normal range between [...] you start to feel better. ??? Take ttzf-cnz-dcpnjaj and prescription medicines only as told by [...] 12/25/2005 Document Revised: 12/09/2016 Document Reviewed: 12/09/2016 [employer] Interactive Patient Education ?? 2019 [employer]. Emergency Awareness and Preventative Care STROKE is [...] Assistance with quitting is available by contacting 7-194-RLQTNOW. This is a free resource providing counseling, [...] was given the opportunity to ask questions. Patient/Senior Principal Name: Patient/Senior Principal Signature: Relationship to Patient: Clinician/Hospital Senior Principal Signature: Please Provide a Telephone Number Where You Can Be Reached: Is it Permissible To Leave a Message? Date: Electronically signed by Sana [facility] Conversion Manager Operations Research Cerner at 07/15/2022 8:03 AM CDT documented in this encounter Plan of Treatment Not on file documented as of this encounter Visit Diagnoses Not on filedocumented in this encounter Care Teams Corrugator Relationship Specialty Start Date End Date Manuel Bingham MD [address] [place] [address] PCP - General Family Medicine 07/31/24 documented as of this encounter
--- OUTSIDE RECORDS SUMMARY | 2024-11-05 10:04 | XMS_ITS | Encounter Summary ---
Author Organization [employer] ([place], [place], [place], [place]) Address [address] [place] [place] [address] Care Team Providers Care Glass Cutting Machine Feeder Name Role Phone Manuel Bingham MD Primary Care Provider [phone] Encounter Details Date Type Department Care Team (Late st Contact Info) Description 08/30/2018 Transcribed Document [facility] [place] [address] ProviderJohn MD [address] [place] [address] Social History Tobacco Use Types Packs/Day Years [...] Surgical history: heart cath. Endometrial Ablation. Cholecystectomy; (37111). colonoscopy. d&c. right carpal tunnel and right [...] EDT Height Source Stated Height Entry Format [place] Height/Length, LATVIAN (ft) 5 ft Height/Length LATVIAN 0 Inch CLINICALHEIGHT 152.4 cm [place] Body Weight 45.16 kg Weight Source, ED Standing scale Weight Entry Format [place] Weight Pakistani lb 190 lb CLINICALWEIGHT 86.36 kg Body Surface Area (BSA) 1.83 m2 Body Mass Index 37.2 kg/m2 HI . Oxygen Saturation 08/30/2018 20:13 EDT Oxygen Saturation 96 % . General: Alert, no acute distress. Shanti coma scale: Total score: Total score: 15. [...] knee left w crutches Splint Location: Applioed by:molasses feed mixer Supervised by: Patient is neurovascularly intact status [...] Medical Plan Condition: Improved, Stable. Prescriptions: Prescription Postal Supervisor Pharmacy: meloxicam 7.5 mg oral tablet (Prescribe): [...] given the following educational materials: Back Exercises, Riju-fm-Ofdf, Knee Sprain, Adult. Follow up with: ZOILA [...] filedocumented in this encounter Care Teams Glass Cutting Machine Feeder Relationship Specialty Start Date End Date Manuel Bingham MD [address] [place] [address] PCP - General Family Medicine 07/31/24 documented as of this encounter
--- OUTSIDE RECORDS SUMMARY | 2024-11-05 10:04 | XMS_ITS | Encounter Summary ---
Author Organization [employer] ([place], [place], [place], [place]) Address [address] [place] [address] Care Team Providers Care Invertebrate Paleontologist Name Role Phone Manuel Bingham MD Primary Care Provider + Encounter Details Date Type Department Care Team (Late st Contact Info) Description 02/28/2020 Transcribed Document [facility] [place] Family Medicine [facility] [place] [address] ProviderJohn MD [address] [place], [place] [id number] Social History Tobacco Use Types Packs/Day Years Used Date Smoking Tobacco: Never Assessed Comments Unknown Sex and Gender Information Value Date Recorded Sex Assigned at Not on file Legal Sex Female 4:40 PM CDT Gender Identity Not on file Sexual Orientation Not on file documented as of this encounter Miscellaneous Notes * Cerner Conversion Note - Historical MD Monika - 02/28/2020 2:04 AM TAG MAKER Patient: JESSICA SAWYER Age: 49 years Sex: [...] Surgical history: heart cath. Endometrial Ablation. Cholecystectomy; (98925). colonoscopy. d&c. right carpal tunnel and right [...] EST Height Source Measured Height Entry Format [place] Height/Length, TRINIDADIAN (ft) 4 ft Height/Length TRINIDADIAN 11 Inch CLINICALHEIGHT 149.86 cm [place] Body Weight 42.87 kg Weight Source, ED Standing scale Weight Entry Format [place] Weight Zambian lb 190 lb CLINICALWEIGHT 86.36 kg Body [...] % 24.2 % Lymph # 1.19 K/uL Cache % 4.9 % Cache # 0.24 K/uL Eos % 0.0 % [...] SEX: 1970 / Female MRN / ACC#: [id number] / [id number] ORDERING PHYSICIAN: Ordering Provider, Update EXAM REQUESTED: [id number] CHEST FACILITY: [facility] DATE: 02/28/2020 RADIOLOGIST NAME: Vaughn [...] No rash, no cyanosis, capillary refill brisk COMMUNITY AFFAIRS DIRECTOR: Awake alert oriented ??4, nonfocal exam Psych: [...] [facility] COVID-19 Patient Education Overview and Infographic (Zambian) (CUSTOM), Prevent the Spread of COVID-19 if You Are Sick - [facility]. Follow up with: ; [place] Within 2 to 3 days; Follow-up with Patient Resource Sleep Scientist at [phone] in 2 to 3 days Within 2 [...] on filedocumented in this encounter Care Teams Invertebrate Paleontologist Relationship Specialty Start Date End Date Manuel Bingham MD [address] [place] [address] PCP - General Family Medicine 07/31/24 documented as of this encounter
--- OUTSIDE RECORDS SUMMARY | 2024-11-05 10:05 | XMS_ITS | Encounter Summary ---
Author Organization [facility] Address [address] [place] [address] Care Team Providers Care Superintendent Water And Sewer Systems Name Role Phone Arben Rao MD Primary Care Provider [phone] Adeola Camara MD Unavailable Reason for Referral * Consultation (Routine) - Closed Specialty Diagnoses / Procedures Referred By Contac t Referred To Contact Neurosurgery Diagnoses Abnormal MRI, spine Arben Rao MD [address] [place] [address] Phone: tel: fax: Referral ID Status Reason Start Date Expiration Date V isits Requested Visits Authorized [id number] Closed Specialty Services Required 08/20/2021 02/19/2023 1 1 Encounter Details Date Type Department Care Team (Late st Contact Info) Description 08/20/2021 [facility] [address] [place] [address] Arben Rao MD [address] [place] [phone] Abnormal MRI, spine (Primary Dx) Social History [...] Primary documented in this encounter Care Teams Superintendent Water And Sewer Systems Relationship Specialty Start Date End Date Arben Rao MD [address] [place] [address] PCP - General 09/04/21 Adeola Camara MD [address] [facility] [address] [place] [address] Surgeon Neurosurgery 09/04/21 documented as of this encounter
--- OUTSIDE RECORDS SUMMARY | 2024-11-05 10:05 | XMS_ITS | Encounter Summary ---
Author Organization [employer] ([place], [place], [place], [place]) Address [address] [place] [address] Care Team Providers Care Shade Maker Name Role Phone Manuel Bingham MD Primary Care Provider + Encounter Details Date Type Department Care Team (Late st Contact Info) Description 11/29/2019 Transcribed Document [facility] [place] [facility] [address] ProviderJohn MD [address] [place] [address] Social History Tobacco Use Types Packs/Day Years Used Date Smoking Tobacco: Never Assessed Comments Unknown Sex and Gender Information Value Date Recorded Sex Assigned at Not on file Legal Sex Female 4:40 PM CDT Gender Identity Not on file Sexual Orientation Not on file documented as of this encounter Miscellaneous Notes * Cerner Conversion Note - John ProviderMD - 11/29/2019 11:44 PM CDT [place] Suicide Severity Rating Scale (C-SSRS) Entered On: 11/30/2019 3:11 EDT Performed On: 11/30/2019 1:20 EDT by Sydni Guerra Rn [place] Suicide Severity Rating Scale (C-SSRS) CSSRS Past [...] on filedocumented in this encounter Care Teams Shade Maker Relationship Specialty Start Date End Date Manuel Bingham MD [address] [place] [address] PCP - General Family Medicine 07/31/24 documented as of this encounter
--- OUTSIDE RECORDS SUMMARY | 2024-11-05 10:05 | XMS_ITS | Encounter Summary ---
Author Organization [employer] ([place], [place], [place], [place]) Address [address] [place] [address] Care Team Providers Care Wrapper Sizer Name Role Phone Manuel Bingham MD Primary Care Provider + Encounter Details Date Type Department Care Team (Late st Contact Info) Description 02/28/[address] [facility] [place] Family Medicine [address] [place] [address] ProviderJohn MD [address] [place] [address] Social History Tobacco Use Types [...] - Historical ProviderMD - 02/28/2020 2:28 PM CASE PLANNER CR Chest 1 Vw Portable Ordered: 02/27/2020 Modified Reason for Exam: SOA 02/28/2020 07:43 02/28/2020 14:28 (BREANA LUU, BERNARDO-EMR) Reviewed by Provider, No further action required 02/28/2020 14:18 (CHESTER BENITEZ) Provider Review Required documented in this encounter Plan of Treatment Not on file documented as of this encounter Visit Diagnoses Not on filedocumented in this encounter Care Teams Wrapper Sizer Relationship Specialty Start Date End Date Manuel Bingham MD [address] [place] [address] PCP - General Family Medicine 07/31/24 documented as of this encounter
--- OUTSIDE RECORDS SUMMARY | 2024-11-05 10:05 | XMS_ITS | Encounter Summary ---
Author Organization [employer] ([place], [place], [place], [place]) Address [address] [place] [address] Care Team Providers Care Taste Tester Name Role Phone Manuel Bingham MD Primary Care Provider + Encounter Details Date Type Department Care Team (Late st Contact Info) Description 02/27/2020 Transcribed Document [facility] [place] [address] [place] [address] ProviderJohn MD [address] [place] [address] Social History Tobacco Use Types Packs/Day Years Used Date Smoking Tobacco: Never Assessed Comments Unknown Sex and Gender Information Value Date Recorded Sex Assigned at Not on file Legal Sex Female 4:40 PM CDT Gender Identity Not on file Sexual Orientation Not on file documented as of this encounter Miscellaneous Notes * Cerner Conversion Note - Historical ProviderMD - 02/27/2020 9:22 PM MOTOR TESTER ED Assessment Entered On: 02/28/2020 2:52 EST Performed On: 02/27/2020 21:30 EST by Raman Peterson, manager med surg Quick Look Assessment Level of Consciousness : Alert, Awake Affect/Behavior : Appropriate, Calm, Cooperative Orientation : Oriented x 4 Skin Temperature : Warm Skin Description : Normal for ethnicity Raman Peterson, Rn - 02/28/2020 2:43 EST ED General-Functional Assess Preferred Communication Mode : Verbal Communication Barrier : None Primary Language : Vietnamese Any Spiritual/Cultural Needs or Requests : No [...] 02/28/2020 2:43 EST Electronically signed by Sana [facility] Conversion Saw Runner Cerner at 07/15/2022 8:22 AM CDT documented in this encounter Plan of Treatment Not on file documented as of this encounter Visit Diagnoses Not on filedocumented in this encounter Care Teams Taste Tester Relationship Specialty Start Date End Date Manuel Bingham MD [address] [place] [address] PCP - General Family Medicine 07/31/24 documented as of this encounter
--- OUTSIDE RECORDS SUMMARY | 2024-11-05 10:05 | XMS_ITS | Encounter Summary ---
Author Organization [employer] ([place], [place], [place], [place]) Address [address] [place] [address] Care Team Providers Care Gymnastic Coach Name Role Phone Manuel Bingham MD Primary Care Provider + Encounter Details Date Type Department Care Team (Late st Contact Info) Description 07/19/2018 Transcribed Document [facility] [place] Family Medicine [facility] [place] [address] ProviderJohn MD [address] [place] [address] Social History Tobacco Use Types Packs/Day Years [...] SHE HAS BEEN HAVING [facility]IN[facility] ON 06/02/2018 IS GETTING WORSE. SHE WAS [...] Surgical history: heart cath. Endometrial Ablation. Cholecystectomy; (22294). colonoscopy. d&c. right carpal tunnel and right [...] Radiology results: Radiology Results (Last 48 hours) [id number] -- 07/19/2018 19:12 CT Spine Lumbar WO [...] 20:56 EDT, Discharge to: Home. Prescriptions: Prescription Interventional Tech Pharmacy: cyclobenzaprine 10 mg oral tablet (Prescribe): 1 Tab, Oral, TID, for 10 Day(s), PRN: as needed for spasm, 30 Tab, 0 Refill(s) Du Quoin 5 mg-325 mg oral tablet (Prescribe): 1 Tab, Oral, TID, for 2 Day(s), PRN: for pain, 6 Tab, 0 Refill(s), Prescription Interventional Tech Pharmacy: Lidoderm 5% topical film (Prescribe): 1 [...] the following educational materials: Back Pain, Adult, Aeew-hg-Zmao, Heat Therapy, Fbim-ea-Zlrs. Limitations: Limited activity. Follow up with: NO PRIM DR QUINTERO Within 2 to 3 days; SHELLY BELLAMY Within 2 to 3 days CALL THIS MD IN THE AM AND REPORT YOUR PAIN IS WORSE . Counseled: Patient, Regarding diagnosis, Regarding diagnostic results, Regarding treatment plan, Regarding prescription, Patient indicated understanding of instructions. Electronically signed by Sana, [facility] Conversion Pastry Cook Apprentice Cerner at 07/15/2022 8:13 AM CDT documented in this encounter Plan of Treatment Not on file documented as of this encounter Visit Diagnoses Not on filedocumented in this encounter Care Teams Gymnastic Coach Relationship Specialty Start Date End Date Manuel Bingham MD [address] [place] [phone] PCP - General Family Medicine 07/31/24 documented as of this encounter
--- OUTSIDE RECORDS SUMMARY | 2024-11-05 10:05 | XMS_ITS | Encounter Summary ---
Author Organization [employer] ([place], [place], [place], [place]) Address [address] [place] [address] Care Team Providers Care Line Installer Name Role Phone Manuel Bingham MD Primary Care Provider + Encounter Details Date Type Department Care Team (Late st Contact Info) Description 11/30/2019 Transcribed Document [facility] [place] Family Medicine [facility] [place] [address] ProviderJohn MD [address] [place] [address] Social History Tobacco Use Types Packs/Day [...] on filedocumented in this encounter Care Teams Line Installer Relationship Specialty Start Date End Date Manuel Bingham MD [address] [place] [phone] PCP - General Family Medicine 07/31/24 documented as of this encounter
--- OUTSIDE RECORDS SUMMARY | 2024-11-05 10:05 | XMS_ITS | Encounter Summary ---
Author Organization [employer] ([place], [place], [place], [place]) Address [address] [place] [address] Care Team Providers Care Finishing Room Supervisor Name Role Phone Manuel Bingham MD Primary Care Provider + Encounter Details Date Type Department Care Team (Late st Contact Info) Description 02/27/2020 Transcribed Document [facility] Family Medicine [facility] [place] [address] ProviderJohn MD [address] [place] [address] Social History Tobacco Use Types [...] - John ProviderMD - 02/27/2020 9:22 PM ADJUNCT TRAINER ED Triage Entered On: 02/27/2020 21:49 EST [...] EST DCP GENERIC CODE Tracking Group : [facility] Tracking Acuity : 3 [...] Allergies ; Type: Allergy ; Updated By: FRANIKE CRESPO RN; Reviewed Date: 02/27/2020 21:43 EST Diagnosis Control ED (As Of: 02/27/2020 21:50:26 EST) Problems(Active) Anxiety (SNOMED CT :59525672 ) Name of Problem: Anxiety ; Recorder: Pearl Espino RN; Confirmation: Confirmed ; Classification: Medical ; Code: [id number] ; Contributor System: [employer] ; Last Updated: 12/19/2016 10:22 EDT ; Life Cycle Date: 12/22/2015 ; Life Cycle Status: Active ; Vocabulary: SNOMED CT CHF (congestive heart failure) (SNOMED CT :62742292 ) Name of Problem: CHF (congestive heart failure) ; Recorder: RAMILA CHIU; Confirmation: Confirmed ; Classification: Medical ; Code: 91539819 ; Contributor System: PowerChart ; Last Updated: 02/24/2020 14:48 EST ; Life Cycle Date: 02/24/2020 ; Life Cycle Status: Active ; Vocabulary: SNOMED CT Endometriosis (SNOMED CT :4339646835 ) Name of Problem: Endometriosis ; Recorder: Pearl Espino RN; Confirmation: Confirmed ; Classification: Medical ; Code: [id number] ; Contributor System: PowerChart ; Last Updated: 12/22/2015 6:56 EDT ; Life Cycle Date: 12/22/2015 ; Life Cycle Status: Active ; Vocabulary: SNOMED CT HTN (SNOMED CT :0211949976 ) Name of Problem: HTN ; Recorder: Pearl Espino RN; Confirmation: Confirmed ; Classification: Medical ; Code: [id number] ; Contributor System: PowerChart ; Last Updated: 09/30/2016 16:39 EDT ; Life Cycle Date: 12/22/2015 ; Life Cycle Status: Active ; Vocabulary: SNOMED CT S/P cholecystectomy (SNOMED CT :8299117458 ) Name of Problem: S/P cholecystectomy ; Recorder: BELIA VELÁZQUEZ RN; Confirmation: Confirmed ; Classification: Medical ; Code: [id number] ; Contributor System: PowerChart ; Last Updated: 02/27/2020 21:44 EST ; Life Cycle Date: 02/27/2020 ; Life Cycle Status: Active ; Vocabulary: SNOMED CT S/P hysterectomy (SNOMED CT :298959659 ) Name of Problem: S/P hysterectomy ; Recorder: BELIA VELÁZQUEZ RN; Confirmation: Confirmed ; Classification: Medical ; Code: 980427132 ; Contributor System: PowerChart ; Last Updated: 07/19/2018 19:29 EDT ; Life Cycle Date: 07/19/2018 ; Life Cycle Status: Active ; Vocabulary: SNOMED CT Diagnoses(Active) Cough Date: 02/27/2020 ; Diagnosis Type: Reason For Visit ; Confirmation: Complaint of ; Clinical Dx: Cough ; Classification: Medical ; Clinical Service: Emergency medicine ; Code: PNED ; Probability: 0 ; Diagnosis Code: [id number] Fever Date: 02/27/2020 ; Diagnosis Type: Reason For Visit ; Confirmation: Complaint of ; Clinical Dx: Fever ; Classification: Medical ; Clinical Service: Emergency medicine ; Code: PNED ; Probability: 0 ; Diagnosis Code: [id number] ED Height and Weight Height Source : Measured Height Entry Format : [place] Height, Feet : 4 ft(Converted to: 122 cm, 48 Inch) Height, Inches : 11 Inch(Converted to: 0 ft 11 Inch, 27.94 cm) Clinical Height : 149.86 cm Weight Source, ED : Standing scale Weight Entry Format : [place] Weight, Pounds : 190 lb Clinical Dosing Weight : 86.36 kg Body Surface Area (BSA) : 1.81 m2 Body Mass Index : 38.5 kg/m2 (HI) [place] Body Weight (IBW) : 42.87 kg BELIA [...] 02/27/2020 21:43 EST Electronically signed by Sana [facility] Conversion Critical Care Transport Nurse Cerner at 07/15/2022 8:07 AM CDT documented in this encounter Plan of Treatment Not on file documented as of this encounter Visit Diagnoses Not on filedocumented in this encounter Care Teams Finishing Room Supervisor Relationship Specialty Start Date End Date Manuel Bingham MD [address] [place] [phone] PCP - General Family Medicine 07/31/24 documented as of this encounter
--- OUTSIDE RECORDS SUMMARY | 2024-11-05 10:05 | XMS_ITS | Encounter Summary ---
Author Organization [employer] ([place], [place], [place], [place]) Address [address] [place] [address] Care Team Providers Care Applications Specialist Name Role Phone Manuel Bingham MD Primary Care Provider + Encounter Details Date Type Department Care Team (Late st Contact Info) Description 02/24/2020 Transcribed Document [facility] [place] Family Medicine [address] [place] [address] ProviderJohn MD [address] [place], [place] [id number] Social History Tobacco Use Types Packs/Day Years Used Date Smoking Tobacco: Never Assessed Comments Unknown Sex and Gender Information Value Date Recorded Sex Assigned at Not on file Legal Sex Female 4:40 PM CDT Gender Identity Not on file Sexual Orientation Not on file documented as of this encounter Miscellaneous Notes * Cerner Conversion Note - Historical ProviderMD - 02/24/2020 2:34 PM BOTTLE FEEDER Broset Violence Assessment Entered On: 02/24/2020 16:22 EST Performed On: 02/24/2020 16:22 EST by LIS VASQUEZ RN Broset Violence Assessment Broset Violence Checklist of Symptoms : None Broset Violence Symptoms Subtotal : 0 Broset Violence Symptoms Indicator : Low risk (0) LIS VASQUEZ RN - 02/24/2020 16:22 EST Electronically signed by Sana [facility] Conversion Scrum Project Manager Cerner at 07/15/2022 8:18 AM CDT documented in this encounter Plan of Treatment Not on file documented as of this encounter Visit Diagnoses Not on filedocumented in this encounter Care Teams Applications Specialist Relationship Specialty Start Date End Date Manuel Bingham MD [address] [place] [phone] PCP - General Family Medicine 07/31/24 documented as of this encounter
--- OUTSIDE RECORDS SUMMARY | 2024-11-05 10:05 | XMS_ITS | Encounter Summary ---
Author Organization [employer] ([place], [place], [place], [place]) Address [address] [place] [address] Care Team Providers Care Sales Representative Metals Name Role Phone Manuel Bingham MD Primary Care Provider + Encounter Details Date Type Department Care Team (Late st Contact Info) Description 02/24/2020 Transcribed Document [facility] [place] [facility] [place] [address] ProviderJohn MD [address] [place] [address] Social History Tobacco Use Types Packs/Day Years Used Date Smoking Tobacco: Never Assessed Comments Unknown Sex and Gender Information Value Date Recorded Sex Assigned at Not on file Legal Sex Female 4:40 PM CDT Gender Identity Not on file Sexual Orientation Not on file documented as of this encounter Miscellaneous Notes * Cerner Conversion Note - Historical ProviderMD - 02/24/2020 2:54 PM CONTRACTING MANAGER Patient: JESSICA SAWYER Age: 49 years Sex: Female : 1970 Associated Diagnoses: Clinical diagnosis of COVID-19 Author: PALLAVI LUU, ANIMAL BREEDER-EMR Basic Information Time seen: Date & time [...] since this morning. 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 Denies soa or chest pain. . [...] Surgical history: heart cath. Endometrial Ablation. Cholecystectomy; (78743). colonoscopy. d&c. right carpal tunnel and right [...] EST Height Source Stated Height Entry Format [place] Height/Length, CUBAN (ft) 5 ft Height/Length CUBAN 4 Inch CLINICALHEIGHT 162.56 cm [place] Body Weight 54.3 kg Weight Source, ED Critical estimated dosing weight Weight Entry Format [place] Weight Spanish lb 190 lb CLINICALWEIGHT 86.36 kg Body [...] on filedocumented in this encounter Care Teams Sales Representative Metals Relationship Specialty Start Date End Date Manuel Bingham MD [address] [place] [address] PCP - General Family Medicine 07/31/24 documented as of this encounter
--- OUTSIDE RECORDS SUMMARY | 2024-11-05 10:05 | XMS_ITS | Encounter Summary ---
Author Organization [employer] ([place], [place], [place], [place]) Address [address] [place] [address] Care Team Providers Care Vegetable Farm Manager Name Role Phone Manuel Bingham MD Primary Care Provider + Encounter Details Date Type Department Care Team (Late st Contact Info) Description 11/29/2019 Transcribed Document [facility] [place] [address] [place] [address] ProviderJohn MD [address] [place] [address] Social History Tobacco Use Types Packs/Day Years [...] On: 11/30/2019 3:11 EDT by Sydni Guerra, epic cadence specialists Quick Look Assessment Level of Consciousness : Alert, Awake Affect/Behavior : Appropriate, Calm, Cooperative Orientation : Oriented x 4 Skin Temperature : Warm Skin Description : Normal for ethnicity Sydni Guerra Rn - 11/30/2019 3:11 EDT ED General-Functional Assess Information Obtained From : Patient Preferred Communication Mode : Verbal Communication Barrier : None Primary Language : Tristanian Any Spiritual/Cultural Needs or Requests : No [...] Rhythm : Regular Nail Bed Color : [place] Chest Pain : No Sydni Guerra Rn [...] 11/30/2019 3:11 EDT Electronically signed by Sana [facility] Conversion Carpentry Teacher Cerner at 07/15/2022 8:09 AM CDT documented in this encounter Plan of Treatment Not on file documented as of this encounter Visit Diagnoses Not on filedocumented in this encounter Care Teams Vegetable Farm Manager Relationship Specialty Start Date End Date Manuel Bingham MD [address] [place] [address] PCP - General Family Medicine 07/31/24 documented as of this encounter
--- OUTSIDE RECORDS SUMMARY | 2024-11-05 10:05 | XMS_ITS | Encounter Summary ---
Author Organization [employer] ([place], [place], [place], [place]) Address [address] [place] [address] Care Team Providers Care Supervisor Sawing And Assembly Name Role Phone Manuel Bingham MD Primary Care Provider + Encounter Details Date Type Department Care Team (Late st Contact Info) Description 02/27/2020 Transcribed Document [facility] [place] Family Medicine [address] [place] [address] ProviderJohn MD [address] [place] [address] Social History Tobacco Use Types Packs/Day Years Used Date Smoking Tobacco: Never Assessed Comments Unknown Sex and Gender Information Value Date Recorded Sex Assigned at Not on file Legal Sex Female 4:40 PM CDT Gender Identity Not on file Sexual Orientation Not on file documented as of this encounter Miscellaneous Notes * Cerner Conversion Note - Historical ProviderMD - 02/27/2020 9:22 PM GANG SUPERVISOR [place] Suicide Severity Rating Scale (C-SSRS) Entered On: 02/28/2020 2:53 EST Performed On: 02/27/2020 21:30 EST by Raman Peterson, Rn [place] Suicide Severity Rating Scale (C-SSRS) CSSRS Past Month Wish to be : No CSSRS Past Month Suicidal Thoughts : No CSSRS Lifetime Suicide Behavior : No Suicide Severity Rating Score : 0 Suicide Severity Rating : No Additional Care Required at this time Raman Peterson, Rn - 02/28/2020 2:43 EST documented in this encounter Plan of Treatment Not on file documented as of this encounter Visit Diagnoses Not on filedocumented in this encounter Care Teams Supervisor Sawing And Assembly Relationship Specialty Start Date End Date Manuel Bingham MD [address] [place] [address] PCP - General Family Medicine 07/31/24 documented as of this encounter
--- OUTSIDE RECORDS SUMMARY | 2024-11-05 10:05 | XMS_ITS | Encounter Summary ---
Author Organization [employer] ([place], [place], [place], [place]) Address [address] [place] [address] Care Team Providers Care Head Refrigeration Engineer Name Role Phone Manuel Bingham MD Primary Care Provider + Encounter Details Date Type Department Care Team (Late st Contact Info) Description 02/24/2020 Transcribed Document [facility] Family Medicine [address] [place] [address] ProviderJohn MD [address] [place] [address] Social History Tobacco Use Types [...] - Historical ProviderMD - 02/24/2020 4:19 [place] [address] JESSICA SAWYER :1970 Visit Time:02/24/2020 Your Visit [...] symptoms. This may include rest, fluids, and hvhs-gpc-sdimxum medicines. Follow these instructions at home: Lifestyle [...] safe for you. General instructions ??? Take zuxx-tjb-ectccfa and prescription medicines only as told by [...] are not available, use an alcohol-based hand tax expert. ? Avoid touching your mouth, face, eyes, [...] water are not available, use alcohol-based hand tax expert. ??? Stay away from other members of [...] 04/22/2019 Document Revised: 07/13/2019 Document Reviewed: 04/22/2019 [employer] Patient Education ?? 2020 PaymentOne. COVID-19 Convalescent Plasma: Donate To Save Lives [...] Assistance with quitting is available by contacting 1-998-ZZIJNOW. This is a free resource providing counseling, support, and referral. Or you may contact your personal physician. [employer] Suicide Prevention Lifeline: The National Suicide Prevention [...] was given the opportunity to ask questions. Patient/Airline Radio Operator Name: Patient/Airline Radio Operator Signature: Relationship to Patient: Clinician/Hospital Airline Radio Operator Signature: Please Provide a Telephone Number Where You Can Be Reached: Is it Permissible To Leave a Message? Date: Electronically signed by Sana, [facility] Conversion Backend Java Developer Cerner at 07/15/2022 8:28 AM CDT documented in this encounter Plan of Treatment Not on file documented as of this encounter Visit Diagnoses Not on filedocumented in this encounter Care Teams Head Refrigeration Engineer Relationship Specialty Start Date End Date Manuel Bingham MD [address] [place] [address] PCP - General Family Medicine 07/31/24 documented as of this encounter
--- OUTSIDE RECORDS SUMMARY | 2024-11-05 10:05 | XMS_ITS | Encounter Summary ---
Author Organization [employer] ([place], [place], [place], [place]) Address [address] [place] [address] Care Team Providers Care Seal Delivery Vehicle Team Technician Name Role Phone Manuel Bingham MD Primary Care Provider +1 Encounter Details Date Type Department Care Team (Late st Contact Info) Description 02/28/2020 Transcribed Document [facility] [place] [address] [place] [address] ProviderJohn MD [address] [place] [address] Social History Tobacco Use Types Packs/Day Years Used Date Smoking Tobacco: Never Assessed Comments Unknown Sex and Gender Information Value Date Recorded Sex Assigned at Not on file Legal Sex Female 4:40 PM CDT Gender Identity Not on file Sexual Orientation Not on file documented as of this encounter Miscellaneous Notes * Cerner Conversion Note - John ProviderMD - 02/28/2020 4:31 AM LAPPING MACHINE SET UP OPERATOR Electronically signed by Sana [facility] Conversion Senior Piping Designer Cerner at 07/15/2022 8:06 AM CDT documented in this encounter Plan of Treatment Not on file documented as of this encounter Visit Diagnoses Not on filedocumented in this encounter Care Teams Seal Delivery Vehicle Team Technician Relationship Specialty Start Date End Date Manuel Bingham MD [address] [place] [address] PCP - General Family Medicine 07/31/24 documented as of this encounter
--- OUTSIDE RECORDS SUMMARY | 2024-11-05 10:05 | XMS_ITS | Encounter Summary ---
Author Organization [employer] ([place], [place], [place], [place]) Address [address] [place] [address] Care Team Providers Care Weighing Station Operator Name Role Phone Manuel Bingham MD Primary Care Provider + 7 Encounter Details Date Type Department Care Team (Late st Contact Info) Description 11/30/2019 Transcribed Document [facility] Radiology [address] [place] [address] Devyn Gross MD [address] [place] [address] Dept. [place] [address] Social History Tobacco Use Types [...] 11/30/2019 4:37 AM EDT Electronically signed by [facility] Conversion Center Medical Director Cerner at 07/15/2022 8:13 AM CDT documented in this encounter Plan of Treatment Not on file documented as of this encounter Visit Diagnoses Not on filedocumented in this encounter Care Teams Weighing Station Operator Relationship Specialty Start Date End Date Manuel Bingham MD [address] [place] [address] [phone] PCP - General Family Medicine 07/31/24 documented as of this encounter
--- OUTSIDE RECORDS SUMMARY | 2024-11-05 10:05 | XMS_ITS | Encounter Summary ---
Author Organization [employer] ([place], [place], [place], [place]) Address [address] [place] [address] Care Team Providers Care Cash Teller Name Role Phone Manuel Bingham MD Primary Care Provider +1 Encounter Details Date Type Department Care Team (Late st Contact Info) Description 02/24/2020 Transcribed Document [facility] [place] Family [place] [facility] [address] ProviderJohn MD [address] [place] [id number] Social History Tobacco Use Types Packs/Day Years Used Date Smoking Tobacco: Never Assessed Comments Unknown Sex and Gender Information Value Date Recorded Sex Assigned at Not on file Legal Sex Female 4:40 PM CDT Gender Identity Not on file Sexual Orientation Not on file documented as of this encounter Miscellaneous Notes * Cerner Conversion Note - Historical ProviderMD - 02/24/2020 4:12 PM MANAGER TRANSMISSION Novel Coronavirus 2019 - - Positive 02/24/2020 15:53 02/24/2020 16:12 (MITCHEL RAWLS PA) Reviewed by Provider, No further action required Test resulted while patient in ED. documented in this encounter Plan of Treatment Not on file documented as of this encounter Visit Diagnoses Not on filedocumented in this encounter Care Teams Cash Teller Relationship Specialty Start Date End Date Manuel Bingham MD [address] [place] [address] [phone] PCP - General Family Medicine 07/31/24 documented as of this encounter
--- OUTSIDE RECORDS SUMMARY | 2024-11-05 10:05 | XMS_ITS | Encounter Summary ---
Author Organization [employer] ([place], [place], [place], [place]) Address [address] [place] [address] Care Team Providers Care Rail Assembler Name Role Phone Manuel Bingham MD Primary Care Provider +1 Encounter Details Date Type Department Care Team (Late st Contact Info) Description 02/24/2020 Transcribed Document [facility] [place] [address] [place] [address] ProviderJohn MD [address] [place] [address] Social History Tobacco Use Types Packs/Day Years Used Date Smoking Tobacco: Never Assessed Comments Unknown Sex and Gender Information Value Date Recorded Sex Assigned at Not on file Legal Sex Female 4:40 PM CDT Gender Identity Not on file Sexual Orientation Not on file documented as of this encounter Miscellaneous Notes * Cerner Conversion Note - John ProviderMD - 02/24/2020 4:18 PM HOP TRAINER Electronically signed by Sana [facility] Conversion Sand Technician Cerner at 07/15/2022 8:28 AM CDT documented in this encounter Plan of Treatment Not on file documented as of this encounter Visit Diagnoses Not on filedocumented in this encounter Care Teams Rail Assembler Relationship Specialty Start Date End Date Manuel Bingham MD [address] [place] [address] PCP - General Family Medicine 07/31/24 documented as of this encounter
--- OUTSIDE RECORDS SUMMARY | 2024-11-05 10:05 | XMS_ITS | Encounter Summary ---
Author Organization [employer] ([place], [place], [place], [place]) Address [address] [place] [address] Care Team Providers Care Data Transcriber Name Role Phone Manuel Bingham MD Primary Care Provider [phone] Encounter Details Date Type Department Care Team (Late st Contact Info) Description 07/19/2018 Transcribed Document [facility] [place] Family Medicine [address] [place] [address] ProviderJohn MD [address] [place] [address] Social History Tobacco Use Types Packs/Day Years [...] 07/19/2018 8:58 PM CDT Electronically signed by Sana [facility] Conversion Railroad Worker Cerner at 07/15/2022 8:08 AM CDT documented in this encounter Plan of Treatment Not on file documented as of this encounter Visit Diagnoses Not on filedocumented in this encounter Care Teams Data Transcriber Relationship Specialty Start Date End Date Manuel Bingham MD [address] [place] [address] PCP - General Family Medicine 07/31/24 documented as of this encounter
--- OUTSIDE RECORDS SUMMARY | 2024-11-05 10:05 | XMS_ITS | Encounter Summary ---
Author Organization [employer] ([place], [place], [place], [place]) Address [address] [place] [address] Care Team Providers Care Senior Javascript Engineer Name Role Phone Manuel Bingham MD Primary Care Provider + Encounter Details Date Type Department Care Team (Late st Contact Info) Description 11/30/2019 Transcribed Document [facility] [place] [facility] [place] [address] ProviderJohn MD [address] [place] [address] Social History Tobacco Use Types [...] Frank MD - 11/30/2019 4:00 [place] [address] JESSICA SAWYER :1970 Visit Time:11/29/2019 Your Visit [...] Inhalation Four Times A Day Pickup at [facility]/pharmacy #[id number] aspirin (aspirin 81 mg oral tablet) 1 [...] 1 Tablet(s) Oral Every Day Pharmacy Information [facility]/pharmacy #[id number]: [address] [id number] [phone] The home medications listed are only as [...] range between ( 1.0 and 7.0 ) [place] #: 0.56 K/uL -- Normal range between ( 0.24 and 0.82 ) [place] #: 0.18 K/uL -- Normal range between ( 0.04 and 0.54 ) [place] %: 6.6 % -- Normal range between [...] these instructions at home: Medicines ??? Take ijdm-jju-zxvybci and prescription medicines only as told by [...] 03/19/2004 Document Revised: 02/27/2018 Document Reviewed: 03/13/2017 [employer] Patient Education ?? 2020 ClickN KIDS. Emergency Awareness and Preventative Care STROKE is [...] Assistance with quitting is available by contacting 0-686-PXDL-NOW. This is a free resource providing counseling, [...] was given the opportunity to ask questions. Patient/Manager Administration Name: Patient/Manager Administration Signature: Relationship to Patient: Clinician/Hospital Manager Administration Signature: Please Provide a Telephone Number Where You Can Be Reached: Is it Permissible To Leave a Message? Date: Electronically signed by Sana, [facility] Conversion Telegraph Office Manager Sandeep at 07/15/2022 8:05 AM CDT documented in this encounter Plan of Treatment Not on file documented as of this encounter Visit Diagnoses Not on filedocumented in this encounter Care Teams Senior Javascript Engineer Relationship Specialty Start Date End Date Manuel Bingham MD [address] [place] [address] PCP - General Family Medicine 07/31/24 documented as of this encounter
--- OUTSIDE RECORDS SUMMARY | 2024-11-05 10:05 | XMS_ITS | Encounter Summary ---
Author Organization [employer] ([place], [place], [place], [place]) Address [address] [place] [address] Care Team Providers Care Experience Planning Strategist Name Role Phone Manuel Bingham MD Primary Care Provider + Encounter Details Date Type Department Care Team (Late st Contact Info) Description 02/24/2020 Transcribed Document [facility] [place] Family Medicine [address] [place] [address] ProviderJohn MD [address] [place] [address] Social History Tobacco Use Types Packs/Day Years Used Date Smoking Tobacco: Never Assessed Comments Unknown Sex and Gender Information Value Date Recorded Sex Assigned at Not on file Legal Sex Female 4:40 PM CDT Gender Identity Not on file Sexual Orientation Not on file documented as of this encounter Miscellaneous Notes * [employer]ner Conversion Note - John ProviderMD - 02/24/2020 4:21 PM DRIVER/GUIDE ED Discharge Entered On: 02/24/2020 16:22 EST [...] on filedocumented in this encounter Care Teams Experience Planning Strategist Relationship Specialty Start Date End Date Manuel Bingham MD [address] [place] [address] PCP - General Family Medicine 07/31/24 documented as of this encounter
--- OUTSIDE RECORDS SUMMARY | 2024-11-05 10:05 | XMS_ITS | Encounter Summary ---
Author Organization [employer] ([place], [place], [place], [place]) Address [address] [place] [address] Care Team Providers Care Pari Mutual Ticket Checker Name Role Phone Manuel Bingham MD Primary Care Provider + Encounter Details Date Type Department Care Team (Late st Contact Info) Description 02/28/2020 Transcribed Document [facility] [place] [address] [place] [address] ProviderJohn MD [address] [place] [address] Social History Tobacco Use Types [...] John Frank MD - 02/28/2020 7:19 AM ENGAGEMENT ENGINEER ED Discharge Entered On: 02/28/2020 7:19 EST Performed On: 02/28/2020 7:19 EST by LIS VASQUEZ RN Discharge Process Patient Disposition : Discharge LIS VASQUEZ RN - 02/28/2020 7:19 EST Electronically signed by Sana [facility] Conversion Armed Custom Protection Officer Cerner at 07/15/2022 8:16 AM CDT documented in this encounter Plan of Treatment Not on file documented as of this encounter Visit Diagnoses Not on filedocumented in this encounter Care Teams Pari Mutual Ticket Checker Relationship Specialty Start Date End Date Manuel Bingham MD [address] [place] [address] [phone] PCP - General Family Medicine 07/31/24 documented as of this encounter
--- OUTSIDE RECORDS SUMMARY | 2024-11-05 10:05 | XMS_ITS | Encounter Summary ---
Author Organization [employer] ([place], [place], [place], [place]) Address [address] [place] [address] Care Team Providers Care Physical Sciences Professor Name Role Phone Manuel Bingham MD Primary Care Provider + Encounter Details Date Type Department Care Team (Late st Contact Info) Description 02/27/2020 Transcribed Document [facility] [place] Medicine [address] [place] [address] ProviderJohn MD [address] [place], [place] [address] Social History Tobacco Use Types Packs/Day Years Used Date Smoking Tobacco: Never Assessed Comments Unknown Sex and Gender Information Value Date Recorded Sex Assigned at Not on file Legal Sex Female 4:40 PM CDT Gender Identity Not on file Sexual Orientation Not on file documented as of this encounter Miscellaneous Notes * Cerner Conversion Note - Historical ProviderMD - 02/27/2020 10:59 PM DIGITAL IMAGING SPECIALIST ED Event Note Entered On: 02/27/2020 23:02 EST Performed On: 02/27/2020 22:59 EST by Umberto Higgins Networking Engineer ED Event Note ED Event Date/Time : [...] was notifed of the results. Umberto Higgins Networking Engineer - 02/27/2020 22:59 EST Electronically signed by Sana [facility] Conversion Physician Assistant Surgery Cerner at 07/15/2022 8:21 AM CDT documented in this encounter Plan of Treatment Not on file documented as of this encounter Visit Diagnoses Not on filedocumented in this encounter Care Teams Physical Sciences Professor Relationship Specialty Start Date End Date Manuel Bingham MD [address] [place] [address] PCP - General Family Medicine 07/31/24 documented as of this encounter
--- OUTSIDE RECORDS SUMMARY | 2024-11-05 10:05 | XMS_ITS | Encounter Summary ---
Author Organization [employer] ([place], [place], [place], [place]) Address [address] [place] [address] Care Team Providers Care Salesperson Men'S And Boys' Clothing Name Role Phone Manuel Bingham MD Primary Care Provider + Encounter Details Date Type Department Care Team (Late st Contact Info) Description 02/27/2020 Transcribed Document [facility] [place] [address] [place] [address] ProviderJohn MD [address] [place] [address] Social History Tobacco Use Types Packs/Day Years Used Date Smoking Tobacco: Never Assessed Comments Unknown Sex and Gender Information Value Date Recorded Sex Assigned at Not on file Legal Sex Female 4:40 PM CDT Gender Identity Not on file Sexual Orientation Not on file documented as of this encounter Miscellaneous Notes * Cerner Conversion Note - Historical ProviderMD - 02/27/2020 9:22 PM WIRER Broset Violence Assessment Entered On: 02/28/2020 2:53 EST Performed On: 02/27/2020 21:30 EST by Raman Peterson, Rn Broset Violence Assessment Broset Violence Checklist of Symptoms : None Broset Violence Symptoms Subtotal : 0 Broset Violence Symptoms Indicator : Low risk (0) Raman Peterson, Rn - 02/28/2020 2:43 EST Electronically signed by Sana [facility] Conversion Manager Personal Cerner at 07/15/2022 8:10 AM CDT documented in this encounter Plan of Treatment Not on file documented as of this encounter Visit Diagnoses Not on filedocumented in this encounter Care Teams Salesperson Men'S And Boys' Clothing Relationship Specialty Start Date End Date Manuel Bingham MD [address] [place] [address] PCP - General Family Medicine 07/31/24 documented as of this encounter
--- OUTSIDE RECORDS SUMMARY | 2024-11-05 10:05 | XMS_ITS | Clinical Summary ---
Author Organization [employer] ([place], [place], [place], [place]) Address [address] [place] [address] Care Team Providers Care Fancy Needleworker Name Role Phone Manuel Bingham MD Primary [...] of 2) 2020 COVID-19 VACCINE ( - 2023- season) 2023 Medicare IPPE (Welcome to Medicare) [id number] 06/29/2024 Influenza Vaccine (#1) 2024 Pneumococcal 50+ years Completed 03/04/2024 Insurance [facility] MEDICARE H[facility] Care Teams Fancy Needleworker Relationship Specialty Start Date End Date Manuel Bingham MD [address] [place] [address] PCP - General Family Medicine 07/31/24
--- OUTSIDE RECORDS SUMMARY | 2024-11-05 10:05 | XMS_ITS | Encounter Summary ---
Author Organization [employer] ([place], [place], [place], [place]) Address [address] [place] [address] Care Team Providers Care Jack Winder Name Role Phone Manuel Bingham MD Primary Care Provider + Encounter Details Date Type Department Care Team (Late st Contact Info) Description 02/24/2020 Transcribed Document [facility] [place] [address] [place] [address] ProviderJohn MD [address] [place] [address] Social History Tobacco Use Types Packs/Day Years Used Date Smoking Tobacco: Never Assessed Comments Unknown Sex and Gender Information Value Date Recorded Sex Assigned at Not on file Legal Sex Female 4:40 PM CDT Gender Identity Not on file Sexual Orientation Not on file documented as of this encounter Miscellaneous Notes * Cerner Conversion Note - Historical ProviderMD - 02/24/2020 2:34 PM PIG MACHINE SUPERVISOR ED Assessment Entered On: 02/24/2020 16:24 [...] Communication Barrier : None Primary Language : Citizen Of [place] Any Spiritual/Cultural Needs or Requests : No [...] on filedocumented in this encounter Care Teams Jack Winder Relationship Specialty Start Date End Date Manuel Bingham MD [address] [place] [address] PCP - General Family Medicine 07/31/24 documented as of this encounter
--- OUTSIDE RECORDS SUMMARY | 2024-11-05 10:05 | XMS_ITS | Encounter Summary ---
Author Organization [employer] ([place], [place], [place], [place]) Address [address] [place] [address] Care Team Providers Care Software Integrator Name Role Phone Manuel Bingham MD Primary Care Provider + Encounter Details Date Type Department Care Team (Late st Contact Info) Description 02/25/2020 Transcribed Document [facility] [place] [address] [place] [address] ProviderJohn MD [address] [place] [address] Social History Tobacco Use Types Packs/Day Years Used Date Smoking Tobacco: Never Assessed Comments Unknown Sex and Gender Information Value Date Recorded Sex Assigned at Not on file Legal Sex Female 4:40 PM CDT Gender Identity Not on file Sexual Orientation Not on file documented as of this encounter Miscellaneous Notes * Cerner Conversion Note - Historical ProviderMD - 02/25/2020 9:16 AM CAR PINCHER CR Chest 1 Vw Portable Ordered: 02/24/2020 Modified Reason for Exam: cough 02/25/2020 07:43 02/25/2020 09:16 (MITCHEL RAWLS PA) Reviewed by Provider, No further action required x1 documented in this encounter Plan of Treatment Not on file documented as of this encounter Visit Diagnoses Not on filedocumented in this encounter Care Teams Software Integrator Relationship Specialty Start Date End Date Manuel Bingham MD [address] [place] [phone] PCP - General Family Medicine 07/31/24 documented as of this encounter
--- OUTSIDE RECORDS SUMMARY | 2024-11-05 10:05 | XMS_ITS | Encounter Summary ---
Author Organization [employer] ([place], [place], [place], [place]) Address [address] [place] [address] Care Team Providers Care Real Estate Intern Name Role Phone Manuel Bingham MD Primary Care Provider + Encounter Details Date Type Department Care Team (Late st Contact Info) Description 11/29/2019 Transcribed Document [facility] [place] [facility] [place] [address] ProviderJohn MD [address] [place] [address] Social History Tobacco Use Types Packs/Day Years [...] On: 11/30/2019 0:39 EDT by FRANKIE CRESPO, RUSH SEATER Triage Across the Room Chief Complaint : Pt co Increased SOA with mid chest pain that began this AM. pt is calm alert skinpwd. Triage Date/Time : 11/30/2019 0:39 EDT FRANKIE CRESPO RN - 11/30/2019 0:39 EDT DCP GENERIC CODE Tracking Acuity : 2 - Emergent Tracking Group : [facility] ED [place] FRANKIE CRESPO RN - [...] 11/30/2019 00:41:48 EDT) Problems(Active) Anxiety (SNOMED CT :54351071 ) Name of Problem: Anxiety ; Recorder: Pearl Espino RN; Confirmation: Confirmed ; Classification: Medical ; Code: [id number] ; Contributor System: DUHEM ; Last Updated: 12/19/2016 10:22 EDT ; Life Cycle Date: 12/22/2015 ; Life Cycle Status: Active ; Vocabulary: SNOMED CT Endometriosis (SNOMED CT :6442497198 ) Name of Problem: Endometriosis ; Recorder: Pearl Espino RN; Confirmation: Confirmed ; Classification: Medical ; Code: 2248830979 ; Contributor System: [employer] ; Last Updated: 12/22/2015 6:56 EDT ; Life Cycle Date: 12/22/2015 ; Life Cycle Status: Active ; Vocabulary: SNOMED CT HTN (SNOMED CT :9296014174 ) Name of Problem: HTN ; Recorder: Pearl Espino RN; Confirmation: Confirmed ; Classification: Medical ; Code: 2289429998 ; Contributor System: DUHEM ; Last Updated: 09/30/2016 16:39 EDT ; Life Cycle Date: 12/22/2015 ; Life Cycle Status: Active ; Vocabulary: SNOMED CT S/P hysterectomy (SNOMED CT :850190883 ) Name of Problem: S/P hysterectomy ; Recorder: BELIA VELÁZQUEZ RN; Confirmation: Confirmed ; Classification: Medical ; Code: 525405268 ; Contributor System: DUHEM ; Last Updated: 07/19/2018 19:29 EDT ; Life Cycle Date: 07/19/2018 ; Life Cycle Status: Active ; Vocabulary: SNOMED CT Diagnoses(Active) Chest pain Date: 11/30/2019 ; Diagnosis Type: Reason For Visit ; Confirmation: Complaint of ; Clinical Dx: Chest pain ; Classification: Medical ; Clinical Service: Emergency medicine ; Code: PNED ; Probability: 0 ; Diagnosis Code: [id number] ED Height and Weight Height Source : Measured Height Entry Format : [place] Height, Feet : 5 ft(Converted to: 152 cm, 60 Inch) Height, Inches : 0 Inch(Converted to: 0 ft 0 Inch, 0.00 cm) Clinical Height : 152.4 cm Weight Source, ED : Standing scale Weight Entry Format : [place] Weight, Pounds : 217 lb Clinical Dosing Weight : 98.64 kg Body Surface Area (BSA) : 1.93 m2 Body Mass Index : 42.5 kg/m2 (>HHI) [place] Body Weight (IBW) : 45.16 kg FRANKIE [...] on filedocumented in this encounter Care Teams Real Estate Intern Relationship Specialty Start Date End Date Manuel Bingham MD [address] [place] [address] PCP - General Family Medicine 07/31/24 documented as of this encounter
--- OUTSIDE RECORDS SUMMARY | 2024-11-05 10:05 | XMS_ITS | Encounter Summary ---
Author Organization [employer] ([place], [place], [place], [place]) Address [address] [place] [address] Care Team Providers Care Electroplater Helper Name Role Phone Manuel Bingham MD Primary Care Provider + Encounter Details Date Type Department Care Team (Late st Contact Info) Description 11/30/2019 Transcribed Document [facility] [place] [facility] [place] [address] ProviderJohn MD [address] [place] [address] Social History Tobacco Use Types Packs/Day Years [...] filedocumented in this encounter Care Teams Electroplater Helper Relationship Specialty Start Date End Date Manuel Bingham MD [address] [place] [address] PCP - General Family Medicine 07/31/24 documented as of this encounter
--- OUTSIDE RECORDS SUMMARY | 2024-11-05 10:05 | XMS_ITS | Referral Summary ---
Author Organization [employer] ([place], [place], [place]) Address [address] [place] [address] Care Team Providers Care Consumer Experience Consultant Name Role Phone Manuel Bingham MD Primary Care Provider + Allergies No known active allergies Medications bisoprolol [...] - Plan of Treatment Not on file Insurance [employer] MEDICARE HMO Care Teams Consumer Experience Consultant Relationship Specialty Start Date End Date Manuel Bingham MD [address] [place] [address] PCP - General Family Medicine 07/31/24
--- OUTSIDE RECORDS SUMMARY | 2024-11-05 10:05 | XMS_ITS | Encounter Summary ---
Author Organization [employer] ([place], [place], [place], [place]) Address [address] [place] [address] Care Team Providers Care Customer Support Advisor Name Role Phone Manuel Bingham MD Primary Care Provider + Encounter Details Date Type Department Care Team (Late st Contact Info) Description 02/27/2020 Transcribed Document [facility] [place] Family Medicine [facility] [place] [address] ProviderJohn MD [address], [place] [id number] Social History Tobacco Use Types Packs/Day Years Used Date Smoking Tobacco: Never Assessed Comments Unknown Sex and Gender Information Value Date Recorded Sex Assigned at Not on file Legal Sex Female 4:40 PM CDT Gender Identity Not on file Sexual Orientation Not on file documented as of this encounter Miscellaneous Notes * Cerner Conversion Note - Historical ProviderMD - 02/27/2020 11:12 PM HINGING MACHINE OPERATOR Patient: JESSICA SAWYER Age: 49 years Sex: [...] Surgical history: heart cath. Endometrial Ablation. Cholecystectomy; (42855). colonoscopy. d&c. right carpal tunnel and right [...] % 24.2 % Lymph # 1.19 K/uL [place] % 4.9 % [place] # 0.24 K/uL [place] % 0.0 % [...] Amb pulse ox 97%. Electronically signed by [facility] Conversion Museum Service Scheduler Cerner at 07/15/2022 8:26 AM CDT documented in this encounter Plan of Treatment Not on file documented as of this encounter Visit Diagnoses Not on filedocumented in this encounter Care Teams Customer Support Advisor Relationship Specialty Start Date End Date Manuel Bingham MD [address] [place] [address] PCP - General Family Medicine 07/31/24 documented as of this encounter
--- OUTSIDE RECORDS SUMMARY | 2024-11-05 10:05 | XMS_ITS | Encounter Summary ---
Author Organization [employer] ([place], [place], [place], [place]) Address [address] [place] [address] Care Team Providers Care Director Of Distance Learning Name Role Phone Manuel Bingham MD Primary Care Provider + Encounter Details Date Type Department Care Team (Late st Contact Info) Description 11/30/2019 Transcribed Document [facility] Radiology [address] [place] [address] Devyn Roman MD [address] [place] [address] Dept. of Emergency Medicine [place] [id number] Social History Tobacco Use Types Packs/Day Years [...] Surgical history: heart cath. Endometrial Ablation. Cholecystectomy; (24949). colonoscopy. d&c. right carpal tunnel and right [...] medicine, Medical Plan Condition: Stable. Prescriptions: Prescription Roofing Applicator Pharmacy: albuterol [facility] free 90 mcg/inh inhalation [...] filedocumented in this encounter Care Teams Director Of Distance Learning Relationship Specialty Start Date End Date Manuel Bingham MD [address] [place] [phone] PCP - General Family Medicine 07/31/24 documented as of this encounter
--- OUTSIDE RECORDS SUMMARY | 2024-11-05 10:05 | XMS_ITS | Encounter Summary ---
Author Organization [employer] ([place], [place], [place], [place]) Address [address] [place] [address] Care Team Providers Care Photoengraving Supervisor Name Role Phone Manuel Bingham MD Primary Care Provider + Encounter Details Date Type Department Care Team (Late st Contact Info) Description 02/24/2020 Transcribed Document [facility] [place] Family Medicine [address] [place] [address] ProviderJohn MD [address] [place] [address] Social History Tobacco Use Types Packs/Day Years Used Date Smoking Tobacco: Never Assessed Comments Unknown Sex and Gender Information Value Date Recorded Sex Assigned at Not on file Legal Sex Female 4:40 PM CDT Gender Identity Not on file Sexual Orientation Not on file documented as of this encounter Miscellaneous Notes * Cerner Conversion Note - Historical ProviderMD - 02/24/2020 2:34 PM COLORIST FORMULATOR [place] Suicide Severity Rating Scale (C-SSRS) Entered On: 02/24/2020 16:22 EST Performed On: 02/24/2020 16:22 EST by LIS VASQUEZ RN [place] Suicide Severity Rating Scale (C-SSRS) CSSRS Past [...] on filedocumented in this encounter Care Teams Photoengraving Supervisor Relationship Specialty Start Date End Date Manuel Bingham MD [address] [place] [address] PCP - General Family Medicine 07/31/24 documented as of this encounter
--- OUTSIDE RECORDS SUMMARY | 2024-11-05 10:05 | XMS_ITS | Encounter Summary ---
Author Organization [employer] ([place], [place], [place], [place]) Address [address] [place] [address] Care Team Providers Care Microelectronics Engineer Name Role Phone Manuel Bingahm MD Primary Care Provider + Encounter Details Date Type Department Care Team (Late st Contact Info) Description 02/24/2020 Transcribed Document [facility] [place] [address] [place] [address] ProviderJohn MD [address], [place] [id number] Social History Tobacco Use Types Packs/Day Years Used Date Smoking Tobacco: Never Assessed Comments Unknown Sex and Gender Information Value Date Recorded Sex Assigned at Not on file Legal Sex Female 4:40 PM CDT Gender Identity Not on file Sexual Orientation Not on file documented as of this encounter Miscellaneous Notes * Cerner Conversion Note - Historical ProviderMD - 02/24/2020 2:34 PM LITHOGRAPH PRINTER ED Triage Entered On: 02/24/2020 14:49 EST Performed On: 02/24/2020 14:47 EST by RAMILA CHIU ED Triage Across the Room Chief Complaint : C/o fever and cough since 2 am Triage Date/Time : 02/24/2020 14:47 EST RAMILA CHIU - 02/24/2020 14:47 EST DCP GENERIC CODE Tracking Acuity : 4 - Non - Urgent Tracking Group : [facility] ED [facility] RAMILA CHIU - 02/24/2020 14:47 EST [...] 02/24/2020 14:49:24 EST) Problems(Active) Anxiety (SNOMED CT :68557544 ) Name of Problem: Anxiety ; Recorder: Pearl Espino RN; Confirmation: Confirmed ; Classification: Medical ; Code: 13405375 ; Contributor System: HipWay ; Last Updated: 12/19/2016 10:22 EDT ; Life Cycle Date: 12/22/2015 ; Life Cycle Status: Active ; Vocabulary: SNOMED CT CHF (congestive heart failure) (SNOMED CT :97216148 ) Name of Problem: CHF (congestive heart failure) ; Recorder: RAMILA CHIU; Confirmation: Confirmed ; Classification: Medical ; Code: 17962602 ; Contributor System: [employer] ; Last Updated: 02/24/2020 14:48 EST ; Life Cycle Date: 02/24/2020 ; Life Cycle Status: Active ; Vocabulary: SNOMED CT Endometriosis (SNOMED CT :0086130654 ) Name of Problem: Endometriosis ; Recorder: Pearl Espino RN; Confirmation: Confirmed ; Classification: Medical ; Code: 4801263420 ; Contributor System: HipWay ; Last Updated: 12/22/2015 6:56 EDT ; Life Cycle Date: 12/22/2015 ; Life Cycle Status: Active ; Vocabulary: SNOMED CT HTN (SNOMED CT :9848682689 ) Name of Problem: HTN ; Recorder: Pearl Espino RN; Confirmation: Confirmed ; Classification: Medical ; Code: 9422915609 ; Contributor System: HipWay ; Last Updated: 09/30/2016 16:39 EDT ; Life Cycle Date: 12/22/2015 ; Life Cycle Status: Active ; Vocabulary: SNOMED CT S/P hysterectomy (SNOMED CT :086496068 ) Name of Problem: S/P hysterectomy ; Recorder: BELIA VELÁZQUEZ RN; Confirmation: Confirmed ; Classification: Medical ; Code: 492085537 ; Contributor System: HipWay ; Last Updated: 07/19/2018 19:29 EDT ; Life Cycle Date: 07/19/2018 ; Life Cycle Status: Active ; Vocabulary: SNOMED CT Diagnoses(Active) Cough Date: 02/24/2020 ; Diagnosis Type: Reason For Visit ; Confirmation: Complaint of ; Clinical Dx: Cough ; Classification: Medical ; Clinical Service: Emergency medicine ; Code: PNED ; Probability: 0 ; Diagnosis Code: [id number] ED Height and Weight Height Source : Stated Height Entry Format : [place] Height, Feet : 5 ft(Converted to: 152 cm, 60 Inch) Height, Inches : 4 Inch(Converted to: 0 ft 4 Inch, 10.16 cm) Clinical Height : 162.56 cm Weight Source, ED : Critical estimated dosing weight Weight Entry Format : [place] Weight, Pounds : 190 lb Clinical Dosing Weight : 86.36 kg Body Surface Area (BSA) : 1.92 m2 Body Mass Index : 32.7 kg/m2 (HI) [place] Body Weight (IBW) : 54.3 kg RAMILA CHIU 02/24/2020 14:47 EST documented in this encounter Plan of Treatment Not on file documented as of this encounter Visit Diagnoses Not on filedocumented in this encounter Care Teams Microelectronics Engineer Relationship Specialty Start Date End Date Manuel Bingham MD [address] [place] [address] PCP - General Family Medicine 07/31/24 documented as of this encounter
== END 2024-11-04 23:59 | disposition home or self-care (01) ==
LOC: LAB.DROPOF 11-05 10:02
PROVIDERS: PCP Family Medicine; Visit Provider Family Medicine
DX: E11.69 Type 2 diabetes mellitus with other specified complication (principal); E78.5 Hyperlipidemia, unspecified
CPT/HCPCS: 82043; 82570

== ENCOUNTER 2024-11-23 07:57 | Day surgery (SDC) | payer MEDICARE, MEDICAID, SELFPAY ==
[2024-11-23 08:10] VITALS: BP 143/87; PULSE 66; RESP 16; O2SAT 95; BMI 45.4
[2024-11-23 08:26] VITALS: BP 141/61; PULSE 75; RESP 18; O2SAT 99
[2024-11-23] MEDS: DEXAMETHASONE 10MG/ML 1ML VIAL 10 MG (08:28)
--- NOTE | 2024-11-23 08:32 | EXP.PAIN.PRO ---
Procedure Date: 11/23/24 Time: 08:20 Anesthesiologist:: Estuardo Segura CRNA Complications:: None Pre-procedure Diagnosis:: Degenerative disc lumbar spine multilevels. Lumbar radiculopathy. Post-procedure Diagnosis:: Same Indications for Procedure:: Patient is a pleasant 54-year-old female comes our clinic today for lumbar epidural steroid injection at the L4-5 level. Patient describes low lumbar back pain as well as bilateral leg radicular symptoms. She rates her pain 10/10. Procedure Details:: Procedure: Lumbar epidural steroid injection under fluoroscopy Informed consent was obtained and the risks and benefits of the procedure were explained to the patient. The patient was taken to the procedure room and noninvasive monitors placed, including noninvasive blood pressure cuff and pulse oximeter. The back was viewed using C-arm Fluoroscopy and prepped using Chloraprep as a cleansing solution and the L4-L5 interspace was palpated. Skin and subcutaneous tissues were anesthetized using lidocaine 1.5% and a 25-gauge needle. After this, an 18-gauge Touhy epidural needle was placed into the L4-L5 interspace and advanced using fluoroscopic guidance and loss of resistance to air until the epidural space was encountered. After confirmation of needle placement in the epidural space, with dye, a solution containing normal saline, 3 mL and dexamethasone 10 mg were incrementally injected into the lumbar epidural space. The patient tolerated the procedure well with no complications. The patient was observed in the Pain Clinic and then discharged home neurologically intact. Plan and Disposition:: Patient was discharged without incident.
[2024-11-23 08:35] VITALS: BP 150/93; PULSE 74; RESP 16; O2SAT 100
== END 2024-11-23 08:35 | disposition home or self-care (01) ==
PROVIDERS: PCP Family Medicine; Visit Provider Nurse Anesthetist, Certified Registered
DX: M51.16 Intervertebral disc disorders with radiculopathy, lumbar region (principal); E78.5 Hyperlipidemia, unspecified; F32.A Depression, unspecified; I25.10 Atherosclerotic heart disease of native coronary artery without angina pectoris; J44.89 Other specified chronic obstructive pulmonary disease; E66.01 Morbid (severe) obesity due to excess calories; Z79.899 Other long term (current) drug therapy; Z68.42 Body mass index [BMI] 45.0-49.9, adult; Z79.51 Long term (current) use of inhaled steroids; I11.0 Hypertensive heart disease with heart failure; I50.30 Unspecified diastolic (congestive) heart failure
CPT/HCPCS: 62323; J1100

== ENCOUNTER 2024-11-24 09:17 | Outpatient (CLI) | payer MEDICARE, MEDICAID, SELFPAY ==
--- OUTSIDE RECORDS SUMMARY | 2024-11-24 09:21 | XMS_ITS | Encounter Summary ---
Author Organization [employer] ([place], [place], [place], [place]) Address [address] [place] [address] Care Team Providers Care Orthotist Or Prosthetist Name Role Phone Manuel Bingham MD Primary Care Provider + Encounter Details Date Type Department Care Team (Late st Contact Info) Description 05/27/2019 Transcribed Document [facility] Radiology [address] [place] [address] Devyn Gross MD [address] [place] [address] Dept. [place] [address] Social History Tobacco Use Types Packs/Day Years [...] Surgical history: heart cath. Endometrial Ablation. Cholecystectomy; (25336). colonoscopy. d&c. right carpal tunnel and right [...] EST Height Source Stated Height Entry Format [place] Height/Length, TOGOLESE (ft) 5 ft Height/Length TOGOLESE 0 Inch CLINICALHEIGHT 152.4 cm Point Clear Body Weight 45.16 kg Weight Source, ED Critical estimated dosing weight Weight Entry Format [place] Weight Thai lb 193 lb CLINICALWEIGHT 87.73 kg Body [...] on filedocumented in this encounter Care Teams Orthotist Or Prosthetist Relationship Specialty Start Date End Date Manuel Bingham MD [address] [place] [address] PCP - General Family Medicine 07/31/24 documented as of this encounter
--- OUTSIDE RECORDS SUMMARY | 2024-11-24 09:21 | XMS_ITS | Encounter Summary ---
Author Organization [employer] ([place], [place], [place], [place]) Address [address] [place] [address] Care Team Providers Care Creative/Art Director Name Role Phone Manuel Bingham MD Primary Care Provider + Encounter Details Date Type Department Care Team (Late st Contact Info) Description 05/27/2019 Transcribed Document [facility] [place] [address] [place] [address] ProviderJohn MD [address] [place] [address] Social History Tobacco Use Types [...] - John ProviderMD - 05/27/2019 9:29 PM HEATING [place] [address] JESSICA SAWYER :1970 Visit Time:05/27/2019 Your Visit [...] these instructions at home: Medicines ??? Take hksk-esu-qyfnerz and prescription medicines only as told by [...] 03/14/2001 Document Revised: 11/13/2016 Document Reviewed: 07/10/2015 [employer] Patient Education ?? 2019 [email or web address]. Pharyngitis Pharyngitis is redness, pain, and swelling [...] Follow these instructions at home: ??? Take nurk-dtg-npjysie and prescription medicines only as told by [...] 03/17/2006 Document Revised: 04/22/2017 Document Reviewed: 04/22/2017 [employer] Patient Education ?? 2019 [employer] Inc. Emergency Awareness and Preventative Care STROKE [...] Assistance with quitting is available by contacting 4-420-KMVTNOW. This is a free resource providing counseling, [...] was given the opportunity to ask questions. Patient/Census Taker Name: Patient/Census Taker Signature: Relationship to Patient: Clinician/Hospital Census Taker Signature: Please Provide a Telephone Number Where You Can Be Reached: Is it Permissible To Leave a Message? Date: documented in this encounter Plan of Treatment Not on file documented as of this encounter Visit Diagnoses Not on filedocumented in this encounter Care Teams Creative/Art Director Relationship Specialty Start Date End Date Manuel Bingham MD [address] [place] [address] PCP - General Family Medicine 07/31/24 documented as of this encounter
--- OUTSIDE RECORDS SUMMARY | 2024-11-24 09:21 | XMS_ITS | Encounter Summary ---
Author Organization [employer] ([place], [place], [place], [place]) Address [address] [place] [address] Care Team Providers Care Sliver Machine Operator Name Role Phone Manuel Bingham MD Primary Care Provider + Encounter Details Date Type Department Care Team (Late st Contact Info) Description 02/28/2020 Transcribed Document [facility] [place] [address] [place] [address] ProviderJohn MD [address] [place] [address] Social History Tobacco Use Types [...] John Frank MD - 02/28/2020 5:51 AM COMMUNITY [place] [address] JESSICA SAWYER :1970 Visit Time:02/27/2020 Your Visit [...] Follow Up with Follow-up with Patient Resource 911 Emergency Dispatcher at [phone] in 2 to 3 days When Within [...] range between ( 1.0 and 7.0 ) [place] #: 0.24 K/uL -- Normal range between ( 0.24 and 0.82 ) [place] #: 0.00 K/uL -- Normal range between ( 0.04 and 0.54 ) [place] %: 4.9 % -- Normal range between [...] if you have questions about pets: https://www.cdc.gov/coronavirus/2019- ncov/faq.html#VITGO27sexwmyl Monitor your symptoms. ??? Common symptoms of [...] and need to call 911, notify the waxer operator that you have or think you [...] clean your hands with an alcohol-based hand director china that contains at least 60% alcohol. Clean your hands often. ??? Wash your handsoften with soap and water for at least 20 seconds. This is especially important after blowing your nose, coughing, or sneezing; going to the bathroom; and before eating or preparing food. ??? Use hand director china if soap and water are not available. Use an alcohol-based hand director china with at least 60% alcohol, covering all [...] and water or put them in the target aircraft controller. Clean all high-touch surfaces everyday. ??? Clean [...] body fluids on them. ??? Use household back tender and disinfectants. Clean the area or item [...] 07/13/2019 Document Revised: 07/16/2019 Document Reviewed: 07/13/[address] Patient Education ?? 2020 Spotted. COVID-19: How to Protect Yourself and Others Know how it spreads ??? There is currently no vaccine to prevent coronavirus disease 2019 (COVID-19). ??? The best way to prevent illness is to avoid being exposed to this virus. ??? The virus is thought to spread mainly from wtsgle-ut-wojuil. ? Between people who are in close [...] are not readily available, use a hand director china that contains at least 60% alcohol. Cover [...] are at higher risk of getting very sick.https://www.cdc.gov/coronavirus/2019-ncov/dkko-eihac-hmvjkjcgbks/people-a g-zdtiuw-ghhp.html Cover your mouth and nose with a cloth face cover when around others ??? You could spread COVID-19 to others even if you do not feel sick. ??? Everyone should wear a cloth face cover when they have to go out in public, for example to the grocery store or to machine operator picker other necessities. ? Cloth face coverings [...] available, clean your hands with a hand director china that contains at least 60% alcohol. Clean and disinfect ??? Clean AND disinfect frequently touched surfaces daily. This includes tables, doorknobs, light switches, countertops, handles, desks, phones, keyboards, toilets, faucets, and sinks. https://www.cdc.gov/coronavirus/2019-ncov/hmnwnpu-peyatks-lpom/disinfecting-yo ur-home.html ??? If surfaces are dirty, clean them: Use detergent or soap and water prior to disinfection. cdc.gov/coronavirus 07/10/2019 This information is not intended to replace advice given to you by your health care provider. Make sure you discuss any questions you have with your health care provider. Document Released: 07/13/2019 Document Revised: 07/16/2019 Document Reviewed: 07/13/2019 Elsevier Patient Education ?? 2020 Spotted. COVID-19 Frequently Asked Questions COVID-19 (coronavirus disease) is an infection that is caused by a large family of viruses. Some viruses cause illness in people and others cause illness in animals like camels, cats, and bats. In some cases, the viruses that cause illness in animals can spread to humans. Where did the coronavirus come from? In February 2019, [place] told the World Health Organization (WHO) of several cases of lung disease (human respiratory illness). These cases were linked to an open seafood and livestock market in the city of [facility]. The link to the seafood and [...] and virus naming World Health Organization (WHO): www.who.int/emergencies/diseases/wndrh-dogryiusonr-6373/technical-guidance/nam xby-lbs-heywpqxgnju-disease-(covid-2019)-plh-npp-uoxei-lqlz-emdvsy-zk Who is at risk for complications from [...] relieve his or her symptoms by using ulor-dlx-ogjguey medicines that treat sneezing, coughing, and runny [...] water are not available, use alcohol-based hand director china. ??? Avoid touching your face, mouth, nose, [...] (CDC): www.cdc.gov/coronavirus/2019-ncov/travelers/index.html ??? World Health Organization (WHO): www.who.int/emergencies/diseases/bwqiu-zzyizfkquhu-2989/travel-advice Know the risks and take action to [...] water are not available, use alcohol-based hand director china. ??? Cough or sneeze into a tissue, [...] in hot, soapy water or use a target aircraft controller. Air-dry your dishes. ??? Wash laundry in [...] Organization (WHO) ??? Information and news updates: www.who.int/emergencies/diseases/wqubc-ljawfkgzcef-6977 ??? Coronavirus health topic: www.who.int/health-topics/coronavirus ??? Questions and answers on COVID-19: www.who.int/news-room/q-a-detail/b-r-tqfmifndvyrsc ??? Global tracker: who.Think Upgrade [place] Academy of Pediatrics (AAP) ??? Information for families: www.healthychildren.org/Russian/health-issues/conditions/chest-lungs/Pages/201 8-Cdhin-Mmmzndhqgys.aspx The coronavirus situation is changing rapidly. Check [...] 07/13/2019 Document Revised: 07/13/2019 Document Reviewed: 07/13/[address] Patient Education ?? [address] Emergency Awareness and Preventative Care STROKE [...] Assistance with quitting is available by contacting 4-751-WWYUNOW. This is a free resource providing counseling, support, and referral. Or you may contact your personal physician. [place] Suicide Prevention Lifeline: The National Suicide Prevention [...] was given the opportunity to ask questions. Patient/Actuarial Assistant Name: Patient/Actuarial Assistant Signature: Relationship to Patient: Clinician/Hospital Actuarial Assistant Signature: Please Provide a Telephone Number Where You Can Be Reached: Is it Permissible To Leave a Message? Date: Electronically signed by Interface, [facility] Conversion Transcription Manager Cerner at 07/15/2022 8:27 AM CDT documented in this encounter Plan of Treatment Not on file documented as of this encounter Visit Diagnoses Not on filedocumented in this encounter Care Teams Sliver Machine Operator Relationship Specialty Start Date End Date Manuel Bingham MD [address] [place] [address] PCP - General Family Medicine 07/31/24 documented as of this encounter
--- OUTSIDE RECORDS SUMMARY | 2024-11-24 09:21 | XMS_ITS | Encounter Summary ---
Author Organization [employer] ([place], [place], [place], [place]) Address [address] [place] [address] Care Team Providers Care Detail Drafter Name Role Phone Manuel Bingham MD Primary Care Provider +[phone] Encounter Details Date Type Department Care Team (Late st Contact Info) Description 03/24/2019 Transcribed Document [facility] [place] [address] [place] [address] ProviderJohn MD [address] [place] [address] Social History Tobacco Use Types Packs/Day Years Used Date Smoking Tobacco: Never Assessed Comments Unknown Sex and Gender Information Value Date Recorded Sex Assigned at Not on file Legal Sex Female 4:40 PM CDT Gender Identity Not on file Sexual Orientation Not on file documented as of this encounter Miscellaneous Notes * [employer] Conversion Note - John ProviderMD - 03/24/2019 5:07 PM CIGARETTE INSPECTOR ED Discharge Entered On: 03/24/2019 17:07 EST [...] 03/24/2019 17:07 EST Electronically signed by Sana, [facility] Conversion Assembler Movement Cerner at 07/15/2022 8:22 AM CDT documented in this encounter Plan of Treatment Not on file documented as of this encounter Visit Diagnoses Not on filedocumented in this encounter Care Teams Detail Drafter Relationship Specialty Start Date End Date Manuel Bingham MD [address] [place] [address] PCP - General Family Medicine 07/31/24 documented as of this encounter
--- OUTSIDE RECORDS SUMMARY | 2024-11-24 09:21 | XMS_ITS | Encounter Summary ---
Author Organization [employer] ([place], [place], [place], [place]) Address [address] [place] [address] Care Team Providers Care Chief Of Anesthesiology Name Role Phone Manuel Bingham MD Primary Care Provider + Encounter Details Date Type Department Care Team (Late st Contact Info) Description 05/27/2019 Transcribed Document [facility] [place] [address] [place] [address] ProviderJohn MD [address] [place] [address] Social History Tobacco Use Types Packs/Day Years Used Date Smoking Tobacco: Never Assessed Comments Unknown Sex and Gender Information Value Date Recorded Sex Assigned at Not on file Legal Sex Female 4:40 PM CDT Gender Identity Not on file Sexual Orientation Not on file documented as of this encounter Miscellaneous Notes * [employer] Conversion Note - Historical ProviderMD - 05/27/2019 6:13 PM DIRECTOR OF ROOMS [place] Suicide Severity Rating Scale (C-SSRS) Entered On: 05/27/2019 19:40 EST Performed On: 05/27/2019 19:40 EST by JUDIE CELIS RN [place] Suicide Severity Rating Scale (C-SSRS) CSSRS Past Month Wish to be : No CSSRS Past Month Suicidal Thoughts : No CSSRS Lifetime Suicide Behavior : No Suicide Severity Rating Score : 0 Suicide Severity Rating : No Additional Care Required at this time JUDIE CELIS RN - 05/27/2019 19:40 EST Electronically signed by Sana [facility] Conversion Biology Laboratory Assistant Cerner at 07/15/2022 8:09 AM CDT documented in this encounter Plan of Treatment Not on file documented as of this encounter Visit Diagnoses Not on filedocumented in this encounter Care Teams Chief Of Anesthesiology Relationship Specialty Start Date End Date Manuel Bingham MD [address] [place] [address] PCP - General Family Medicine 07/31/24 documented as of this encounter
--- OUTSIDE RECORDS SUMMARY | 2024-11-24 09:21 | XMS_ITS | Encounter Summary ---
Author Organization [employer] ([place], [place], [place], [place]) Address [address] [place] [address] Care Team Providers Care Music Mixer Name Role Phone Manuel Bingham MD Primary Care Provider + Encounter Details Date Type Department Care Team (Late st Contact Info) Description 05/27/2019 Transcribed Document [facility] [place] [address] [place] [address] ProviderJohn MD [address] [place] [address] Social History Tobacco Use Types Packs/Day Years Used Date Smoking Tobacco: Never Assessed Comments Unknown Sex and Gender Information Value Date Recorded Sex Assigned at Not on file Legal Sex Female 4:40 PM CDT Gender Identity Not on file Sexual Orientation Not on file documented as of this encounter Miscellaneous Notes * [employer] Conversion Note - Historical ProviderMD - 05/27/2019 6:13 PM PYROMETALLURGICAL ENGINEER ED Assessment Entered On: 05/27/2019 19:43 EST [...] Communication Barrier : None Primary Language : Micronesian Any Spiritual/Cultural Needs or Requests : No [...] - 05/27/2019 19:43 EST Electronically signed by [facility], [facility] Conversion Legal Executive Assistant Cerner at 07/15/2022 8:16 AM CDT documented in this encounter Plan of Treatment Not on file documented as of this encounter Visit Diagnoses Not on filedocumented in this encounter Care Teams Music Mixer Relationship Specialty Start Date End Date Manuel Bingham MD [address] [place] [address] PCP - General Family Medicine 07/31/24 documented as of this encounter
--- OUTSIDE RECORDS SUMMARY | 2024-11-24 09:21 | XMS_ITS | Encounter Summary ---
Author Organization [employer] ([place], [place], [place], [place]) Address [address] [place] [address] Care Team Providers Care Fire Captain Name Role Phone Manuel Bingham MD Primary Care Provider [phone] Encounter Details Date Type Department Care Team (Late st Contact Info) Description 03/24/2019 Transcribed Document [facility] [place] [address] [place] [address] ProviderJohn MD [address] [place] [address] Social History Tobacco Use Types Packs/Day Years Used Date Smoking Tobacco: Never Assessed Comments Unknown Sex and Gender Information Value Date Recorded Sex Assigned at Not on file Legal Sex Female 4:40 PM CDT Gender Identity Not on file Sexual Orientation Not on file documented as of this encounter Miscellaneous Notes * [employer] Conversion Note - John ProviderMD - 03/24/2019 4:23 PM CHAIR AND COUCH MAKER Electronically signed by Sana [facility] Conversion Occupational Therapy Co Director Cerner at 07/15/2022 8:16 AM CDT documented in this encounter Plan of Treatment Not on file documented as of this encounter Visit Diagnoses Not on filedocumented in this encounter Care Teams Fire Captain Relationship Specialty Start Date End Date Manuel Bingham MD [address] [place] [address] PCP - General Family Medicine 07/31/24 documented as of this encounter
--- OUTSIDE RECORDS SUMMARY | 2024-11-24 09:21 | XMS_ITS | Encounter Summary ---
Author Organization [employer] ([place], [place], [place], [place]) Address [address] [place] [address] Care Team Providers Care General Office Associate Name Role Phone Manuel Bingham MD Primary Care Provider [phone] Encounter Details Date Type Department Care Team (Late st Contact Info) Description 03/24/2019 Transcribed Document [facility] [place] [address] [place] [address] ProviderJohn MD [address] [place] [address] Social History Tobacco Use Types Packs/Day Years Used Date Smoking Tobacco: Never Assessed Comments Unknown Sex and Gender Information Value Date Recorded Sex Assigned at Not on file Legal Sex Female 4:40 PM CDT Gender Identity Not on file Sexual Orientation Not on file documented as of this encounter Miscellaneous Notes * [employer] Conversion Note - Historical ProviderMD - 03/24/2019 4:15 PM SQUARING SHEAR OPERATOR Pain Assessment Entered On: 03/24/2019 17:06 EST [...] on filedocumented in this encounter Care Teams General Office Associate Relationship Specialty Start Date End Date Manuel Bingham MD [address] [place] [address] PCP - General Family Medicine 07/31/24 documented as of this encounter
--- OUTSIDE RECORDS SUMMARY | 2024-11-24 09:21 | XMS_ITS | Encounter Summary ---
Author Organization [employer] ([place], [place], [place], [place]) Address [address] [place] [address] Care Team Providers Care Drawing Supervisor Name Role Phone Manuel Bingham MD Primary Care Provider + Encounter Details Date Type Department Care Team (Late st Contact Info) Description 05/27/2019 Transcribed Document [facility] [place] [address] [place] [address] ProvideroJhn MD [address] [place] [address] Social History Tobacco Use Types Packs/Day Years Used Date Smoking Tobacco: Never Assessed Comments Unknown Sex and Gender Information Value Date Recorded Sex Assigned at Not on file Legal Sex Female 4:40 PM CDT Gender Identity Not on file Sexual Orientation Not on file documented as of this encounter Miscellaneous Notes * [employer] Conversion Note - John ProviderMD - 05/27/2019 9:29 PM COLD WORK OPERATOR ED Discharge Entered On: 05/27/2019 21:29 EST [...] 05/27/2019 21:29 EST Electronically signed by Sana, [facility] Conversion Hotel Maintenance Engineer Cerner at 07/15/2022 8:13 AM CDT documented in this encounter Plan of Treatment Not on file documented as of this encounter Visit Diagnoses Not on filedocumented in this encounter Care Teams Drawing Supervisor Relationship Specialty Start Date End Date Manuel Bingham MD [address] [place] [address] PCP - General Family Medicine 07/31/24 documented as of this encounter
--- OUTSIDE RECORDS SUMMARY | 2024-11-24 09:21 | XMS_ITS | Clinical Summary ---
Author Organization [facility] Address [address] [place] [address] Care Team Providers Care Press Operator Meat Name Role Phone Juan M Manjinder Styles DO Primary Care Provider [phone] Allergies No known active allergies Medications aspirin [...] r Vision loss Mother Carmela Asthma Son uAgustin Relation Name Status Comments Father Nick Mother [...] Description 12/16/2024 9:30 AM EDT Office Visit [facility] PULMONARY & CRITICAL CARE MEDICINE [address] [facility] [address] [place] [address] 12/16/2024 10:00 AM EDT Office Visit [facility] PULMONARY & CRITICAL CARE MEDICINE [address] [facility] [address] [place] [address] Manjinder Sauceda MD [address] [place] [address] 12/16/2024 11:00 AM EDT Office Visit [facility] OBGYN [address] [place] [address] Manjinder Franklin MD [address] [facility] [address] [place] [address] Health Maintenance Due Date Last Done Comments [...] Final Result from Last 3 Months Insurance [facility] MEDICARE [facility] HMO MEDICARE A & B Care Teams Press Operator Meat Relationship Specialty Start Date End Date Manjinder Mcgowan DO [address] [id number] PCP - General Internal Medicine 06/08/24
--- OUTSIDE RECORDS SUMMARY | 2024-11-24 09:21 | XMS_ITS | Encounter Summary ---
Author Organization [employer] ([place], [place], [place], [place]) Address [address] [place] [address] Care Team Providers Care Middle School Teacher Name Role Phone Manuel Bingham MD Primary Care Provider + Encounter Details Date Type Department Care Team (Late st Contact Info) Description 05/27/2019 Transcribed Document [facility] [place] [facility] [place] [address] ProviderJohn MD [address] [place], [place] [id number] Social History Tobacco Use Types Packs/Day Years Used Date Smoking Tobacco: Never Assessed Comments Unknown Sex and Gender Information Value Date Recorded Sex Assigned at Not on file Legal Sex Female 4:40 PM CDT Gender Identity Not on file Sexual Orientation Not on file documented as of this encounter Miscellaneous Notes * Cerner Conversion Note - John ProviderMD - 05/27/2019 6:13 PM NIGHT TIME BABYSITTER ED Triage Entered On: 05/27/2019 18:35 EST [...] EST DCP GENERIC CODE Tracking Group : [facility] ED [facility] LIS VASQUEZ RN - 05/27/2019 18:33 [...] 05/27/2019 18:35:50 EST) Problems(Active) Anxiety (SNOMED CT :26820067 ) Name of Problem: Anxiety ; Recorder: Pearl Espino RN; Confirmation: Confirmed ; Classification: Medical ; Code: [id number] ; Contributor System: [email or web address] ; Last Updated: 12/19/2016 10:22 EDT ; Life Cycle Date: 12/22/2015 ; Life Cycle Status: Active ; Vocabulary: SNOMED CT Endometriosis (SNOMED CT :7613076389 ) Name of Problem: Endometriosis ; Recorder: Pearl Espino RN; Confirmation: Confirmed ; Classification: Medical ; Code: [id number] ; Contributor System: PowerChart ; Last Updated: 12/22/2015 6:56 EDT ; Life Cycle Date: 12/22/2015 ; Life Cycle Status: Active ; Vocabulary: SNOMED CT HTN (SNOMED CT :9378332538 ) Name of Problem: HTN ; Recorder: Pearl Espino RN; Confirmation: Confirmed ; Classification: Medical ; Code: [id number] ; Contributor System: [email or web address] ; Last Updated: 09/30/2016 16:39 EDT ; Life Cycle Date: 12/22/2015 ; Life Cycle Status: Active ; Vocabulary: SNOMED CT S/P hysterectomy (SNOMED CT :709936756 ) Name of Problem: S/P hysterectomy ; Recorder: BELIA VELÁZQUEZ RN; Confirmation: Confirmed ; Classification: Medical ; Code: [id number] ; Contributor System: PowerChart ; Last Updated: [...] PNED ; Probability: 0 ; Diagnosis Code: [id number] ED Height and Weight Height Source : Stated Height Entry Format : [place] Height, Feet : 5 ft(Converted to: 152 cm, 60 Inch) Height, Inches : 0 Inch(Converted to: 0 ft 0 Inch, 0.00 cm) Clinical Height : 152.4 cm Weight Source, ED : Critical estimated dosing weight Weight Entry Format : [place] Weight, Pounds : 193 lb Clinical Dosing Weight : 87.73 kg Body Surface Area (BSA) : 1.84 m2 Body Mass Index : 37.8 kg/m2 (HI) [place] Body Weight (IBW) : 45.16 kg LIS VASQUEZ RN - 05/27/2019 18:33 EST documented in this encounter Plan of Treatment Not on file documented as of this encounter Visit Diagnoses Not on filedocumented in this encounter Care Teams Middle School Teacher Relationship Specialty Start Date End Date Manuel Bingham MD [address] [place] [address] PCP - General Family Medicine 07/31/24 documented as of this encounter
--- OUTSIDE RECORDS SUMMARY | 2024-11-24 09:21 | XMS_ITS | Encounter Summary ---
Author Organization [employer] ([place], [place], [place], [place]) Address [address] [place] [address] Care Team Providers Care Healthcare Applications Analyst Name Role Phone Manuel Bingham MD Primary Care Provider + Encounter Details Date Type Department Care Team (Late st Contact Info) Description 03/24/2019 Transcribed Document [facility] [place] [address] [place] [address] ProviderJohn MD [address] [place] [address] Social History Tobacco Use Types Packs/Day [...] Historical MD Monika - 03/24/2019 4:56 PM HOTEL RECREATIONAL FACILITIES MANAGER CR Chest 1 Vw Portable Ordered: 03/24/2019 Modified Reason for Exam: chest pain 03/24/2019 15:54 03/24/2019 16:56 (BREANA LUU, CHIEF CLINICAL OFFICER-EMR) Reviewed by Provider, No further action required x1 documented in this encounter Plan of Treatment Not on file documented as of this encounter Visit Diagnoses Not on filedocumented in this encounter Care Teams Healthcare Applications Analyst Relationship Specialty Start Date End Date Manuel Bingham MD [address] [place] [address] [phone] PCP - General Family Medicine 07/31/24 documented as of this encounter
--- OUTSIDE RECORDS SUMMARY | 2024-11-24 09:21 | XMS_ITS | Encounter Summary ---
Author Organization [employer] ([place], [place], [place], [place]) Address [address] [place] [address] Care Team Providers Care Gas Dispatcher Name Role Phone Manuel Bingham MD Primary Care Provider +1 Encounter Details Date Type Department Care Team (Late st Contact Info) Description 05/27/2019 Transcribed Document [facility] [place] [address] [place] [address] ProviderJohn MD [address] [place] [address] Social History Tobacco Use Types Packs/Day Years Used Date Smoking Tobacco: Never Assessed Comments Unknown Sex and Gender Information Value Date Recorded Sex Assigned at Not on file Legal Sex Female 4:40 PM CDT Gender Identity Not on file Sexual Orientation Not on file documented as of this encounter Miscellaneous Notes * Cerner Conversion Note - John ProviderMD - 05/27/2019 8:32 PM COFFEE GRINDER Electronically signed by [facility] Conversion Production Control Coordinating Clerk Cerner at 07/15/2022 8:17 AM CDT documented in this encounter Plan of Treatment Not on file documented as of this encounter Visit Diagnoses Not on filedocumented in this encounter Care Teams Gas Dispatcher Relationship Specialty Start Date End Date Manuel Bingham MD [address] [place] [address] PCP - General Family Medicine 07/31/24 documented as of this encounter
--- OUTSIDE RECORDS SUMMARY | 2024-11-24 09:21 | XMS_ITS | Encounter Summary ---
Author Organization [employer] ([place], [place], [place], [place]) Address [address] [facility] [place] [address] Care Team Providers Care Automation Controls Expert Name Role Phone Manuel Bingham MD Primary Care Provider + Encounter Details Date Type Department Care Team (Late st Contact Info) Description 02/28/2020 Transcribed Document [facility] [place] [facility] [place] [address] ProviderJohn MD [address] [place], [place] [id number] Social History Tobacco Use Types Packs/Day Years Used Date Smoking Tobacco: Never Assessed Comments Unknown Sex and Gender Information Value Date Recorded Sex Assigned at Not on file Legal Sex Female 4:40 PM CDT Gender Identity Not on file Sexual Orientation Not on file documented as of this encounter Miscellaneous Notes * Cerner Conversion Note - Historical MD Monika - 02/28/2020 2:04 AM INDUSTRIAL HEALTH AND SAFETY PROFESSOR Patient: JESSICA SAWYER Age: 49 years Sex: [...] Surgical history: heart cath. Endometrial Ablation. Cholecystectomy; (77897). colonoscopy. d&c. right carpal tunnel and right [...] EST Height Source Measured Height Entry Format [place] Height/Length, [place] (ft) 4 ft Height/Length [place] 11 Inch CLINICALHEIGHT 149.86 cm [place] Body Weight 42.87 kg Weight Source, ED Standing scale Weight Entry Format [place] Weight B[place] lb 190 lb CLINICALWEIGHT 86.36 kg Body [...] % 24.2 % Lymph # 1.19 K/uL Burke % 4.9 % Burke # 0.24 K/uL Eos % 0.0 % [...] SEX: 1970 / Female MRN / ACC#: [id number] / [id number] ORDERING PHYSICIAN: Ordering Provider, Update EXAM REQUESTED: [id number]--EUO CHEST FACILITY: [facility] DATE: 02/28/2020 RADIOLOGIST NAME: Vaughn [...] No rash, no cyanosis, capillary refill brisk MECHANIC INDUSTRIAL TRUCK: Awake alert oriented ??4, nonfocal exam Psych: [...] [facility] COVID-19 Patient Education Overview and Infographic (Bermudian) (CUSTOM), Prevent the Spread of COVID-19 if You Are Sick - [facility]. Follow up with: ; [place] Within 2 to 3 days; Follow-up with Patient Resource Well Puller Head at [phone] in 2 to 3 days Within 2 [...] on filedocumented in this encounter Care Teams Automation Controls Expert Relationship Specialty Start Date End Date Manuel Bingham MD [address] [place] [address] PCP - General Family Medicine 07/31/24 documented as of this encounter
--- OUTSIDE RECORDS SUMMARY | 2024-11-24 09:21 | XMS_ITS | Encounter Summary ---
Author Organization [employer] ([place], [place], [place], [place]) Address [address] [place] [address] Care Team Providers Care Kick Plate Installer Name Role Phone Manuel Bingham MD Primary Care Provider + Encounter Details Date Type Department Care Team (Late st Contact Info) Description 08/24/2021 Transcribed Document [facility] [place] [place] [facility] [place] [address] ProviderJohn MD [address] [place] [address] Social History Tobacco Use Types Packs/Day Years [...] graduated high school. 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 She is single with two children. She was previously , although she did not recall when she or how long she has been . Ms. Sawyer currently attends outpatient counseling and she receives psychopharmacological intervention at an unspecified clinic in [place]. She referred to her therapist as, ??? [...] Sawyer was unaware that she was in [place] for the assessment. She stated she was currently in [place]. She was aware of the current international affairs vice president. She was able to tell [...] and depression. This note was dictated using Intern voice recognition software. Cc: Sweta Lion D.O. Electronically signed by Sana [facility] Conversion Supervisor Mattress [employer] Cerner at 07/15/2022 8:24 AM CDT documented in this encounter Plan of Treatment Not on file documented as of this encounter Visit Diagnoses Not on filedocumented in this encounter Care Teams Kick Plate Installer Relationship Specialty Start Date End Date Manuel Bingham MD [address] [place] [address] PCP - General Family Medicine 07/31/24 documented as of this encounter
--- OUTSIDE RECORDS SUMMARY | 2024-11-24 09:22 | XMS_ITS | Encounter Summary ---
Author Organization [employer] ([place], [place], [place], [place]) Address [address] [place] [address] Care Team Providers Care Hand Rug Cleaner Name Role Phone Manuel Bingham MD Primary Care Provider + Encounter Details Date Type Department Care Team (Late st Contact Info) Description 03/24/2019 Transcribed Document [facility] Family Medicine [address] [place] [address] ProviderJohn MD [address] [place], [place] [address] Social History Tobacco Use Types Packs/Day Years Used Date Smoking Tobacco: Never Assessed Comments Unknown Sex and Gender Information Value Date Recorded Sex Assigned at Not on file Legal Sex Female 4:40 PM CDT Gender Identity Not on file Sexual Orientation Not on file documented as of this encounter Miscellaneous Notes * Cerner Conversion Note - Historical ProviderMD - 03/24/2019 2:29 PM CATTLE DEHORNER ED Triage Entered On: 03/24/2019 14:39 EST Performed On: 03/24/2019 14:37 EST by DALE FUENTES RN ED Triage Across the Room Chief Complaint : 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 CP STARTED AT REST, + SOA Triage Date/Time : 03/24/2019 14:37 EST DALE FUETNES RN - 03/24/2019 14:37 EST DCP GENERIC CODE Tracking Acuity : 2 - Emergent Tracking Group : [facility] ED [place] DALE FUENTES RN [...] 03/24/2019 14:39:04 EST) Problems(Active) Anxiety (SNOMED CT :04713647 ) Name of Problem: Anxiety ; Recorder: Pearl Espino RN; Confirmation: Confirmed ; Classification: Medical ; Code: [id number] ; Contributor System: Ornis ; Last Updated: 12/19/2016 10:22 EDT ; Life Cycle Date: 12/22/2015 ; Life Cycle Status: Active ; Vocabulary: SNOMED CT Endometriosis (SNOMED CT :6506197775 ) Name of Problem: Endometriosis ; Recorder: Pearl Espnio RN; Confirmation: Confirmed ; Classification: Medical ; Code: 9972264683 ; Contributor System: PowerChart ; Last Updated: 12/22/2015 6:56 EDT ; Life Cycle Date: 12/22/2015 ; Life Cycle Status: Active ; Vocabulary: SNOMED CT HTN (SNOMED CT :6389011672 ) Name of Problem: HTN ; Recorder: Pearl Espino RN; Confirmation: Confirmed ; Classification: Medical ; Code: 9842809532 ; Contributor System: Ornis ; Last Updated: 09/30/2016 16:39 EDT ; Life Cycle Date: 12/22/2015 ; Life Cycle Status: Active ; Vocabulary: SNOMED CT S/P hysterectomy (SNOMED CT :568317955 ) Name of Problem: S/P hysterectomy ; Recorder: BELIA VELÁZQUEZ RN; Confirmation: Confirmed ; Classification: Medical ; Code: 814421520 ; Contributor System: PowerChart ; Last Updated: 07/19/2018 19:29 EDT ; Life Cycle Date: 07/19/2018 ; Life Cycle Status: Active ; Vocabulary: SNOMED CT Diagnoses(Active) Chest pain Date: 03/24/2019 ; Diagnosis Type: Reason For Visit ; Confirmation: Complaint of ; Clinical Dx: Chest pain ; Classification: Medical ; Clinical Service: Emergency medicine ; Code: PNED ; Probability: 0 ; Diagnosis Code: [id number] ED Height and Weight Height Source : Stated Height Entry Format : [place] Height, Feet : 5 ft(Converted to: 152 cm, 60 Inch) Height, Inches : 1 Inch(Converted to: 0 ft 1 Inch, 2.54 cm) Clinical Height : 154.94 cm Weight Source, ED : Standing scale Weight Entry Format : [place] Weight, Pounds : 200 lb Clinical Dosing Weight : 90.91 kg Body Surface Area (BSA) : 1.89 m2 Body Mass Index : 37.9 kg/m2 (HI) Carmen Body Weight (IBW) : 47.45 kg DALE FUENTES RN - 03/24/2019 14:37 EST Electronically signed by Sana [facility] Conversion Filing And Polishing Supervisor Cerner at 07/15/2022 8:10 AM CDT documented in this encounter Plan of Treatment Not on file documented as of this encounter Visit Diagnoses Not on filedocumented in this encounter Care Teams Hand Rug Cleaner Relationship Specialty Start Date End Date Manuel Bingham MD [address] [place] [address] PCP - General Family Medicine 07/31/24 documented as of this encounter
--- OUTSIDE RECORDS SUMMARY | 2024-11-24 09:22 | XMS_ITS | Encounter Summary ---
Author Organization [employer] ([place], [place], [place], [place]) Address [address] [place] [address] Care Team Providers Care Food Truck Caterer Name Role Phone Manuel Bingham MD Primary Care Provider + Encounter Details Date Type Department Care Team (Late st Contact Info) Description 02/27/2020 Transcribed Document [facility] [place] Family Medicine [address] [place] [address] ProviderJohn MD [address] [place], [place] [address] Social History Tobacco Use Types Packs/Day Years Used Date Smoking Tobacco: Never Assessed Comments Unknown Sex and Gender Information Value Date Recorded Sex Assigned at Not on file Legal Sex Female 4:40 PM CDT Gender Identity Not on file Sexual Orientation Not on file documented as of this encounter Miscellaneous Notes * Cerner Conversion Note - Historical ProviderMD - 02/27/2020 10:59 PM RICE MILLING SUPERVISOR ED Event Note Entered On: 02/27/2020 23:02 EST Performed On: 02/27/2020 22:59 EST by Umberto Higgins Client Services Administrator ED Event Note ED Event Date/Time : [...] was notifed of the results. Umberto Higgins Client Services Administrator - 02/27/2020 22:59 EST documented in this encounter Plan of Treatment Not on file documented as of this encounter Visit Diagnoses Not on filedocumented in this encounter Care Teams Food Truck Caterer Relationship Specialty Start Date End Date Manuel Bingham MD [address] [place] [address] PCP - General Family Medicine 07/31/24 documented as of this encounter
--- OUTSIDE RECORDS SUMMARY | 2024-11-24 09:22 | XMS_ITS | Encounter Summary ---
Author Organization [employer] ([place], [place], [place], [place]) Address [address] [place] [address] Care Team Providers Care Manager Pe Name Role Phone Manuel Bingham MD Primary Care Provider + Encounter Details Date Type Department Care Team (Late st Contact Info) Description 03/24/2019 Transcribed Document [facility] Family Medicine [address] [place] [address] ProviderJohn MD [address] [place] [address] Social History Tobacco Use Types [...] - John ProviderMD - 03/24/2019 5:07 PM [place] [address] JESSICA SAWYER :1970 Visit Time:03/24/2019 Your Visit [...] for as needed for pain Pickup at [facility]/pharmacy #[id number] Pharmacy Information [facility]/pharmacy #[id number]: [address] [place], [place] [id number] [phone] The home medications listed are only as [...] range between ( 1.0 and 7.0 ) Mckinley #: 0.49 K/uL -- Normal range between ( 0.24 and 0.82 ) Eos #: 0.12 K/uL -- Normal range between ( 0.04 and 0.54 ) Mckinley %: 8.1 % -- Normal range between [...] you start to feel better. ??? Take ntof-vci-zgzhxrt and prescription medicines only as told by [...] 12/25/2005 Document Revised: 12/09/2016 Document Reviewed: 12/09/2016 [employer] Interactive Patient Education ?? 2019 Feesheh. Emergency Awareness and Preventative Care STROKE is [...] Assistance with quitting is available by contacting 1-336-BZTPNOW. This is a free resource providing counseling, [...] was given the opportunity to ask questions. Patient/Sorting Machine Attendant Name: Patient/Sorting Machine Attendant Signature: Relationship to Patient: Clinician/Hospital Sorting Machine Attendant Signature: Please Provide a Telephone Number Where You Can Be Reached: Is it Permissible To Leave a Message? Date: Electronically signed by Sana [facility] Conversion Manager Ethics Cerner at 07/15/2022 8:03 AM CDT documented in this encounter Plan of Treatment Not on file documented as of this encounter Visit Diagnoses Not on filedocumented in this encounter Care Teams Manager Pe Relationship Specialty Start Date End Date Manuel Bingham MD [address] [place] [address] PCP - General Family Medicine 07/31/24 documented as of this encounter
--- OUTSIDE RECORDS SUMMARY | 2024-11-24 09:22 | XMS_ITS | Encounter Summary ---
Author Organization [employer] ([place], [place], [place], [place]) Address [address] [place] [address] Care Team Providers Care Reinforcing Metal Worker Name Role Phone Manuel Bingham MD Primary Care Provider + Encounter Details Date Type Department Care Team (Late st Contact Info) Description 03/24/[address] [facility] [place] Family Medicine [address] [place] [address] ProviderJohn MD [address] [place], [place] [address] Social History Tobacco Use Types Packs/Day Years Used Date Smoking Tobacco: Never Assessed Comments Unknown Sex and Gender Information Value Date Recorded Sex Assigned at Not on file Legal Sex Female 4:40 PM CDT Gender Identity Not on file Sexual Orientation Not on file documented as of this encounter Miscellaneous Notes * Cerner Conversion Note - Historical ProviderMD - 03/24/2019 2:47 PM PRESCHOOL HEAD TEACHER Patient: JESSICA SAWYER Age: 48 years Sex: Female : 1970 Associated Diagnoses: Chest pain, midsternal Author: PALLAVI LUU, SOFTWARE PACKAGING ENGINEER-EMR Basic Information Time seen: Date & time 03/24/2019 14:40:00. History source: Patient. Arrival mode: Private vehicle. History limitation: None. 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 [...] Surgical history: heart cath. Endometrial Ablation. Cholecystectomy; (47756). colonoscopy. d&c. right carpal tunnel and right [...] EST Height Source Stated Height Entry Format [place] Height/Length, [place] (ft) 5 ft Height/Length [place] 1 Inch CLINICALHEIGHT 154.94 cm [place] Body Weight 47.45 kg Weight Source, ED Standing scale Weight Entry Format [place] Weight Divehi lb 200 lb CLINICALWEIGHT 90.91 kg Body [...] Assessment: ED C-SSRS: ED Clinical Reconciliation: ED active directory specialist: EKG: Saline Lock Insert: Ordered (Dispatched) CBC [...] % 30.3 % Lymph # 1.84 K/uL Waller % 8.1 % Waller # 0.49 K/uL Eos % 2.0 % Eos # 0.12 K/uL Baso % 0.8 % Baso # 0.05 K/uL Slide Review No PT 9.8 Second(s) INR 1.0 , Lab results : Lab Results 03/24/2019 16:29 EST Troponin I Ultra <0.015 ng/mL . Radiology results: Radiology Results (Last 48 hours) [id number] -- 03/24/2019 14:29 CR Chest 1 Vw [...] Condition: Stable. Disposition: Medically cleared. Prescriptions: Prescription Snuff Box Finisher Pharmacy: naproxen 500 mg oral tablet (Prescribe): [...] on filedocumented in this encounter Care Teams Reinforcing Metal Worker Relationship Specialty Start Date End Date Manuel Bingham MD [address] [place] [address] PCP - General Family Medicine 07/31/24 documented as of this encounter
--- OUTSIDE RECORDS SUMMARY | 2024-11-24 09:22 | XMS_ITS | Encounter Summary ---
Author Organization [employer] ([place], [place], [place], [place]) Address [address] [place] [address] Care Team Providers Care Tamale Maker Name Role Phone Manuel Bingham MD Primary Care Provider + Encounter Details Date Type Department Care Team (Late st Contact Info) Description 02/28/2020 Transcribed Document [facility] [place] Family Medicine [address] [place] [address] ProviderJohn MD [address] [place] [address] Social History Tobacco Use Types [...] - Historical ProviderMD - 02/28/2020 2:28 PM SECURITY REP CR Chest 1 Vw Portable Ordered: 02/27/2020 Modified Reason for Exam: SOA 02/28/2020 07:43 02/28/2020 14:28 (BREANA LUU, BERNARDO-EMR) Reviewed by Provider, No further action required 02/28/2020 14:18 (CHESTER BENITEZ) Provider Review Required documented in this encounter Plan of Treatment Not on file documented as of this encounter Visit Diagnoses Not on filedocumented in this encounter Care Teams Tamale Maker Relationship Specialty Start Date End Date Manuel Bingham MD [address] [place] [address] PCP - General Family Medicine 07/31/24 documented as of this encounter
--- OUTSIDE RECORDS SUMMARY | 2024-11-24 09:22 | XMS_ITS | Encounter Summary ---
Author Organization [employer] ([place], [place], [place], [place]) Address [address] [place] [address] Care Team Providers Care Dentist Name Role Phone Manuel Bingham MD Primary Care Provider +1 7- Encounter Details Date Type Department Care Team (Late st Contact Info) Description 07/19/2018 Transcribed Document [facility] [place] [address] [place] [address] ProviderJohn MD [address] [place] [address] Social History Tobacco Use Types Packs/Day Years Used Date Smoking Tobacco: Never Assessed Comments Unknown Sex and Gender Information Value Date Recorded Sex Assigned at Not on file Legal Sex Female 4:40 PM CDT Gender Identity Not on file Sexual Orientation Not on file documented as of this encounter Miscellaneous Notes * Cerner Conversion Note - John ProviderMD - 07/19/2018 8:58 PM CDT documented in this encounter Plan of Treatment Not on file documented as of this encounter Visit Diagnoses Not on filedocumented in this encounter Care Teams Dentist Relationship Specialty Start Date End Date Manuel Bingham MD [address] [place] [address] PCP - General Family Medicine 07/31/24 documented as of this encounter
--- OUTSIDE RECORDS SUMMARY | 2024-11-24 09:22 | XMS_ITS | Encounter Summary ---
Author Organization [employer] ([place], [place], [place], [place]) Address [address] [place] [address] Care Team Providers Care Director Electronics Name Role Phone Manuel Bingham MD Primary Care Provider + Encounter Details Date Type Department Care Team (Late st Contact Info) Description 02/27/2020 Transcribed Document [facility] [place] [facility] [place] [address] ProviderJohn MD [address], [place] [id number] Social History Tobacco Use Types Packs/Day Years Used Date Smoking Tobacco: Never Assessed Comments Unknown Sex and Gender Information Value Date Recorded Sex Assigned at Not on file Legal Sex Female 4:40 PM CDT Gender Identity Not on file Sexual Orientation Not on file documented as of this encounter Miscellaneous Notes * Cerner Conversion Note - Historical ProviderMD - 02/27/2020 11:12 PM HOME ENERGY INSPECTOR Patient: JESSICA SAWYER Age: 49 years Sex: [...] Surgical history: heart cath. Endometrial Ablation. Cholecystectomy; (18113). colonoscopy. d&c. right carpal tunnel and right [...] % 24.2 % Lymph # 1.19 K/uL [place] % 4.9 % [place] # 0.24 K/uL Eos % 0.0 % [...] Amb pulse ox 97%. Electronically signed by [facility], [facility] Conversion Card Clothier Cerner at 07/15/2022 8:26 AM CDT documented in this encounter Plan of Treatment Not on file documented as of this encounter Visit Diagnoses Not on filedocumented in this encounter Care Teams Director Electronics Relationship Specialty Start Date End Date Manuel Bingham MD [address] [place] [address] PCP - General Family Medicine 07/31/24 documented as of this encounter
--- OUTSIDE RECORDS SUMMARY | 2024-11-24 09:22 | XMS_ITS | Encounter Summary ---
Author Organization [employer] ([place], [place], [place], [place]) Address [address] [place] [address] Care Team Providers Care Vending Route Driver Name Role Phone Manuel Bingham MD Primary Care Provider + Encounter Details Date Type Department Care Team (Late st Contact Info) Description 08/31/2018 Transcribed Document [facility] [place] Family Medicine [address] [place] [address] ProviderJohn MD [address] [place] [address] Social History Tobacco Use Types Packs/Day Years [...] Reviewed by Provider, No further action required [id number] Electronically signed by Sana [facility] Conversion Artist'S Model Cerner at 07/15/2022 8:15 AM CDT documented in this encounter Plan of Treatment Not on file documented as of this encounter Visit Diagnoses Not on filedocumented in this encounter Care Teams Vending Route Driver Relationship Specialty Start Date End Date Manuel Bingham MD [address] [place] [address] PCP - General Family Medicine 07/31/24 documented as of this encounter
--- OUTSIDE RECORDS SUMMARY | 2024-11-24 09:22 | XMS_ITS | Encounter Summary ---
Author Organization [employer] ([place], [place], [place], [place]) Address [address] [place] [address] Care Team Providers Care Collection Systems Consultant Name Role Phone Manuel Bingham MD Primary Care Provider +[phone] Encounter Details Date Type Department Care Team (Late st Contact Info) Description 03/24/[address] [facility] [place] Family Medicine [address] [place] [address] ProviderJohn MD [address] [place], [place] [id number] Social History Tobacco Use Types Packs/Day Years Used Date Smoking Tobacco: Never Assessed Comments Unknown Sex and Gender Information Value Date Recorded Sex Assigned at Not on file Legal Sex Female 4:40 PM CDT Gender Identity Not on file Sexual Orientation Not on file documented as of this encounter Miscellaneous Notes * Cerner Conversion Note - Historical ProviderMD - 03/24/2019 2:29 PM BRIM POUNCER MACHINE OPERATOR ED Assessment Entered On: 03/24/2019 15:23 EST [...] Communication Barrier : None Primary Language : Czech Any Spiritual/Cultural Needs or Requests : No [...] Symptoms : None Nail Bed Color : [place] Chest Pain : No LAZARO KHALIL RN-Resource [...] the text rendition version of the form. Electronically signed by Floyd Hood Conversion Compression Molding Machine Tender Cerner at 07/15/2022 8:15 AM CDT documented in this encounter Plan of Treatment Not on file documented as of this encounter Visit Diagnoses Not on filedocumented in this encounter Care Teams Collection Systems Consultant Relationship Specialty Start Date End Date Manuel Bingham MD [address] [place] [address] PCP - General Family Medicine 07/31/24 documented as of this encounter
--- OUTSIDE RECORDS SUMMARY | 2024-11-24 09:22 | XMS_ITS | Encounter Summary ---
Author Organization [employer] ([place], [place], [place], [place]) Address [address] [place] [address] Care Team Providers Care Switch Operator Name Role Phone Manuel Bingham MD Primary Care Provider + Encounter Details Date Type Department Care Team (Late st Contact Info) Description 08/30/2018 Transcribed Document [facility] [place] [facility] [place] [address] ProviderJohn MD [address] [place] [address] Social History Tobacco Use Types Packs/Day Years [...] 08/30/2018 22:05 EDT Electronically signed by Sana [facility] Conversion Safety Glass Installer Cerner at 07/15/2022 8:23 AM CDT documented in this encounter Plan of Treatment Not on file documented as of this encounter Visit Diagnoses Not on filedocumented in this encounter Care Teams Switch Operator Relationship Specialty Start Date End Date Manuel Bingham MD [address] [place] [address] PCP - General Family Medicine 07/31/24 documented as of this encounter
--- OUTSIDE RECORDS SUMMARY | 2024-11-24 09:22 | XMS_ITS | Encounter Summary ---
Author Organization [employer] ([place], [place], [place], [place]) Address [address] [place] [address] Care Team Providers Care Event Marketing Coordinator Name Role Phone Manuel Bingham MD Primary Care Provider +1 Encounter Details Date Type Department Care Team (Late st Contact Info) Description 08/30/[address] [facility] [place] Medicine [facility] [address] ProviderJohn MD [address] [place] [address] Social History Tobacco Use Types Packs/Day Years [...] - Non - Urgent Tracking Group : [facility] CHERIE LUNA RN - 08/30/2018 [...] 08/30/2018 20:16:40 EDT) Problems(Active) Anxiety (SNOMED CT :03366716 ) Name of Problem: Anxiety ; Recorder: Pearl Espino Rn; Confirmation: Confirmed ; Classification: Medical ; Code: [id number] ; Contributor System: StartForceChart ; Last Updated: 12/19/2016 10:22 EDT ; Life Cycle Date: 12/22/2015 ; Life Cycle Status: Active ; Vocabulary: SNOMED CT Endometriosis (SNOMED CT :2931706194 ) Name of Problem: Endometriosis ; Recorder: Pearl Espino Rn; Confirmation: Confirmed ; Classification: Medical ; Code: [id number] ; Contributor System: [employer]ForceChart ; Last Updated: 12/22/2015 6:56 EDT ; Life Cycle Date: 12/22/2015 ; Life Cycle Status: Active ; Vocabulary: SNOMED CT HTN (SNOMED CT :5618818544 ) Name of Problem: HTN ; Recorder: Pearl Espino Rn; Confirmation: Confirmed ; Classification: Medical ; Code: 4659752991 ; Contributor System: [employer] ; Last Updated: 09/30/2016 16:39 EDT ; Life Cycle Date: 12/22/2015 ; Life Cycle Status: Active ; Vocabulary: SNOMED CT S/P hysterectomy (SNOMED CT :587088870 ) Name of Problem: S/P hysterectomy ; Recorder: BELIA VELÁZQUEZ RN; Confirmation: Confirmed ; Classification: Medical ; Code: [id number] ; Contributor System: [employer] ; Last Updated: 07/19/2018 19:29 EDT ; Life Cycle Date: 07/19/2018 ; Life Cycle Status: Active ; Vocabulary: SNOMED CT Diagnoses(Active) Fall Date: 08/30/2018 ; Diagnosis Type: Reason For Visit ; Confirmation: Complaint of ; Clinical Dx: Fall ; Classification: Medical ; Clinical Service: Emergency medicine ; Code: PNED ; Probability: 0 ; Diagnosis Code: [id number] ED Height and Weight Height Source : Stated Height Entry Format : [place] Height, Feet : 5 ft(Converted to: 152 cm, 60 Inch) Height, Inches : 0 Inch(Converted to: 0 ft 0 Inch, 0.00 cm) Clinical Height : 152.4 cm Weight Source, ED : Standing scale Weight Entry Format : [place] Weight, Pounds : 190 lb Clinical Dosing Weight : 86.36 kg Body Surface Area (BSA) : 1.83 m2 Body Mass Index : 37.2 kg/m2 (HI) [place] Body Weight (IBW) : 45.16 kg CHERIE [...] [facility] Conversion Rn Utilization Management Um Cerner at 07/15/2022 8:13 AM CDT documented in this encounter Plan of Treatment Not on file documented as of this encounter Visit Diagnoses Not on filedocumented in this encounter Care Teams Event Marketing Coordinator Relationship Specialty Start Date End Date Manuel Bingham MD [address] [place] [address] PCP - General Family Medicine 07/31/24 documented as of this encounter
--- OUTSIDE RECORDS SUMMARY | 2024-11-24 09:22 | XMS_ITS | Encounter Summary ---
Author Organization [employer] ([place], [place], [place], [place]) Address [address] [place] [address] Care Team Providers Care Solar Business Developer Name Role Phone Manuel Bingham MD Primary Care Provider + Encounter Details Date Type Department Care Team (Late st Contact Info) Description 07/19/2018 Transcribed Document [facility] [place] Family Medicine [address] [place] [address] ProviderJohn MD [address] [place] [address] Social History Tobacco Use Types Packs/Day Years [...] EDT DCP GENERIC CODE Tracking Group : [facility] Tracking Acuity : 4 - [...] 07/19/2018 19:33:47 EDT) Problems(Active) Anxiety (SNOMED CT :94677373 ) Name of Problem: Anxiety ; Recorder: Pearl Espino Rn; Confirmation: Confirmed ; Classification: Medical ; Code: 86766082 ; Contributor System: [employer] ; Last Updated: 12/19/2016 10:22 EDT ; Life Cycle Date: 12/22/2015 ; Life Cycle Status: Active ; Vocabulary: SNOMED CT Endometriosis (SNOMED CT :3817217526 ) Name of Problem: Endometriosis ; Recorder: Pearl Espino Rn; Confirmation: Confirmed ; Classification: Medical ; Code: 9823642191 ; Contributor System: [employer]Chart ; Last Updated: 12/22/2015 6:56 EDT ; Life Cycle Date: 12/22/2015 ; Life Cycle Status: Active ; Vocabulary: SNOMED CT HTN (SNOMED CT :1840122926 ) Name of Problem: HTN ; Recorder: Pearl Espino Rn; Confirmation: Confirmed ; Classification: Medical ; Code: 1676175948 ; Contributor System: [employer] ; Last Updated: 09/30/2016 16:39 EDT ; Life Cycle Date: 12/22/2015 ; Life Cycle Status: Active ; Vocabulary: SNOMED CT S/P hysterectomy (SNOMED CT :613402491 ) Name of Problem: S/P hysterectomy ; Recorder: BELIA VELÁZQUEZ RN; Confirmation: Confirmed ; Classification: Medical ; Code: 064588963 ; Contributor System: [employer] ; Last Updated: 07/19/2018 19:29 EDT ; Life Cycle Date: 07/19/2018 ; Life Cycle Status: Active ; Vocabulary: SNOMED CT Diagnoses(Active) Back pain Date: 07/19/2018 ; Diagnosis Type: Reason For Visit ; Confirmation: Complaint of ; Clinical Dx: Back pain ; Classification: Medical ; Clinical Service: Emergency medicine ; Code: PNED ; Probability: 0 ; Diagnosis Code: [id number] ED Height and Weight Height Source : Measured Height Entry Format : [place] Height, Feet : 5 ft(Converted to: 152 cm, 60 Inch) Height, Inches : 0 Inch(Converted to: 0 ft 0 Inch, 0.00 cm) Clinical Height : 152.4 cm Weight Source, ED : Standing scale Weight Entry Format : [place] Weight, Pounds : 191 lb Clinical Dosing Weight : 86.82 kg Body Surface Area (BSA) : 1.83 m2 Body Mass Index : 37.4 kg/m2 (HI) [place] Body Weight (IBW) : 45.16 kg BELIA [...] 07/19/2018 19:28 EDT Electronically signed by Sana [facility] Conversion Ramp And Cargo Supervisor Cerner at 07/15/2022 8:06 AM CDT documented in this encounter Plan of Treatment Not on file documented as of this encounter Visit Diagnoses Not on filedocumented in this encounter Care Teams Solar Business Developer Relationship Specialty Start Date End Date Manuel Bingham MD [address] [place] [address] PCP - General Family Medicine 07/31/24 documented as of this encounter
--- OUTSIDE RECORDS SUMMARY | 2024-11-24 09:22 | XMS_ITS | Encounter Summary ---
Author Organization [employer] ([place], [place], [place], [place]) Address [address] [place] [address] Care Team Providers Care Manager Food Safety Name Role Phone Manuel Bingham MD Primary Care Provider + Encounter Details Date Type Department Care Team (Late st Contact Info) Description 08/30/2018 Transcribed Document [facility] [place] [facility] [place] [address] ProviderJohn MD [address] [place] [id number] Social History Tobacco Use Types Packs/Day Years Used Date Smoking Tobacco: Never Assessed Comments Unknown Sex and Gender Information Value Date Recorded Sex Assigned at Not on file Legal Sex Female 4:40 PM CDT Gender Identity Not on file Sexual Orientation Not on file documented as of this encounter Miscellaneous Notes * Cerner Conversion Note - John ProviderMD - 08/30/2018 10:01 [place] [address] JESSICA SAWYER :1970 Visit Time:08/30/2018 Your Visit [...] computer, smartphone, or tablet. Just go to [email or web address] to get started. Questions? Call . You [...] symptoms worsen hope you feel better! Where: [facility] [address] [facility] (1) Follow Up with NO PRIM DR QUINTERO When Within 2 to 3 days Allergies No Known Medication Allergies Immunizations This Visit No Immunizations Found Medications What How Much When Instructions Next Dose acetaminophen (Tylenol Extra Strength 500 mg oral tablet) 1 Tablet(s) Oral Every 6 Hours as needed for for pain Duration: 5 Day(s) Pickup at [facility] methocarbamol (Robaxin 500 mg oral tablet) 2 Tablet(s) Oral Four Times A Day Duration: 7 Day(s) Pickup at [facility] aspirin (aspirin 81 mg oral tablet) 1 Tablet(s) Oral Every Day bisoprolol (bisoprolol 5 mg oral tablet) 0.5 Tablet(s) Oral Every Day bumetanide (Bumex) Every Day conjugated estrogens (Premarin 0.9 mg oral tablet) 1 Tablet(s) Oral Every Day meloxicam (meloxicam 7.5 mg oral tablet) Oral Every Day meloxicam (meloxicam 7.5 mg oral tablet) 1 Tablet(s) Oral Every Day Duration: 7 Day(s) Pickup at [facility] spironolactone (spironolactone 100 mg oral tablet) 1 Tablet(s) Oral Every Day [facility] [address] [place] Quinn [phone] The home medications listed are only as [...] are sitting or lying down. ??? Take brca-zbk-bewpecb and prescription medicines only as told by [...] 03/17/2006 Document Revised: 12/04/2016 Document Reviewed: 10/04/2016 [employer] Interactive Patient Education ?? 2019 [employer] Back Exercises If you have pain [...] 04/19/2011 Document Revised: 10/22/2017 Document Reviewed: 05/11/2015 [employer] Interactive Patient Education ?? 2019 [employer]. Emergency Awareness and Preventative Care STROKE is [...] Assistance with quitting is available by contacting 8-858-IRYU-NOW. This is a free resource providing counseling, [...] was given the opportunity to ask questions. Patient/Principal Gifts Officer Name: Patient/Principal Gifts Officer Signature: Relationship to Patient: Clinician/Hospital Principal Gifts Officer Signature: Please Provide a Telephone Number Where You Can Be Reached: Is it Permissible To Leave a Message? Date: documented in this encounter Plan of Treatment Not on file documented as of this encounter Visit Diagnoses Not on filedocumented in this encounter Care Teams Manager Food Safety Relationship Specialty Start Date End Date Manuel Bingham MD [address] [place] [address] PCP - General Family Medicine 07/31/24 documented as of this encounter
--- OUTSIDE RECORDS SUMMARY | 2024-11-24 09:22 | XMS_ITS | Encounter Summary ---
Author Organization [employer] ([place], [place], [place], [place]) Address [address] [place] [address] Care Team Providers Care Film Drying Machine Operator Name Role Phone Manuel Binhgam MD Primary Care Provider + Encounter Details Date Type Department Care Team (Late st Contact Info) Description 07/19/2018 Transcribed Document [facility] [place] [facility] [place] [address] ProviderJohn MD [address] [place] [address] Social History Tobacco Use Types Packs/Day [...] Frank MD - 07/19/2018 9:07 [place] [address] JESSICA SAWYER :1970 Visit Time:07/19/2018 Your Visit Summary Your Care Team Admitting Physician - SAMUEL DONOHUE MD-EMR Attending Physician - SAMUEL DONOHUE MD-EMR Primary Care Physician - GINA EVANGELISTA MD-OBG INGRID, NO DR Referring Physician - INGRID, SELF REFERRED Your Diagnosis Back pain Lumbar back pain Patient Portal Reminder: Be sure to sign up for the [employer] patient portal, which gives you 21/10 access to your medical information ??? including these discharge instructions ??? using your computer, smartphone, or tablet. Just go to [email or web address] to get started. Questions? Call . You [...] REPORT YOUR PAIN IS WORSE Where: [address] [facility] 2[address] [place] [address] [facility] (1) Follow Up with NO PRIM DR QUINTERO When Within 2 to 3 days Allergies No Known Medication Allergies Immunizations This Visit No Immunizations Found Medications What How Much When Instructions Next Dose New acetaminophen-hydrocodone ([place] 5 mg-325 mg oral tablet) 1 Tablet(s) [...] and flexible. ??? Do notsit, drive, or stand up comedian one place for more than 30 minutes. [...] Assistance with quitting is available by contacting 3-124-GGEANOW. This is a free resource providing counseling, support, and referral. Or you may contact your personal physician. [place] Suicide Prevention Lifeline: The National Suicide Prevention [...] was given the opportunity to ask questions. Patient/Patient Partner Name: Patient/Patient Partner Signature: Relationship to Patient: Clinician/Hospital Patient Partner Signature: Please Provide a Telephone Number Where You Can Be Reached: Is it Permissible To Leave a Message? Date: Electronically signed by Interface, [facility] Conversion Therapeutic Recreation Leader Cerner at 07/15/2022 8:30 AM CDT documented in this encounter Plan of Treatment Not on file documented as of this encounter Visit Diagnoses Not on filedocumented in this encounter Care Teams Film Drying Machine Operator Relationship Specialty Start Date End Date Manuel Bingham MD [address] [place] [address] PCP - General Family Medicine 07/31/24 documented as of this encounter
--- OUTSIDE RECORDS SUMMARY | 2024-11-24 09:22 | XMS_ITS | Encounter Summary ---
Author Organization [employer] ([place], [place], [place], [place]) Address [address] [place] [address] Care Team Providers Care Communications Coordinator Name Role Phone Manuel Bingham MD Primary Care Provider + Encounter Details Date Type Department Care Team (Late st Contact Info) Description 02/27/2020 Transcribed Document [facility] [place] Family Medicine [address] [place] [address] ProviderJohn MD [address] [place] [address] Social History Tobacco Use Types Packs/Day Years Used Date Smoking Tobacco: Never Assessed Comments Unknown Sex and Gender Information Value Date Recorded Sex Assigned at Not on file Legal Sex Female 4:40 PM CDT Gender Identity Not on file Sexual Orientation Not on file documented as of this encounter Miscellaneous Notes * Cerner Conversion Note - Historical ProviderMD - 02/27/2020 9:22 PM DOCK SUPERVISOR Broset Violence Assessment Entered On: 02/28/2020 2:53 EST Performed On: 02/27/2020 21:30 EST by Raman Peterson, Rn Broset Violence Assessment Broset Violence Checklist of Symptoms : None Broset Violence Symptoms Subtotal : 0 Broset Violence Symptoms Indicator : Low risk (0) Raman Peterson, Rn - 02/28/2020 2:43 EST Electronically signed by Sana [facility] Conversion Professional Development Manager Cerner at 07/15/2022 8:10 AM CDT documented in this encounter Plan of Treatment Not on file documented as of this encounter Visit Diagnoses Not on filedocumented in this encounter Care Teams Communications Coordinator Relationship Specialty Start Date End Date Manuel Bingham MD [address] [place] [address] PCP - General Family Medicine 07/31/24 documented as of this encounter
--- OUTSIDE RECORDS SUMMARY | 2024-11-24 09:22 | XMS_ITS | Encounter Summary ---
Author Organization [employer] ([place], [place], [place], [place]) Address [address] [place] [address] Care Team Providers Care Nuclear Powerplant Mechanic Name Role Phone Manuel Bingham MD Primary Care Provider + Encounter Details Date Type Department Care Team (Late st Contact Info) Description 03/24/2019 Transcribed Document [facility] [place] Family Medicine [address] [place] [address] ProviderJohn MD [address] [place] [address] Social History Tobacco Use Types Packs/Day Years Used Date Smoking Tobacco: Never Assessed Comments Unknown Sex and Gender Information Value Date Recorded Sex Assigned at Not on file Legal Sex Female 4:40 PM CDT Gender Identity Not on file Sexual Orientation Not on file documented as of this encounter Miscellaneous Notes * Cerner Conversion Note - Historical ProviderMD - 03/24/2019 2:29 PM METHOD CONSULTANT [place] Suicide Severity Rating Scale (C-SSRS) Entered On: 03/24/2019 15:23 EST Performed On: 03/24/2019 15:21 EST by LAZARO KHALIL RN-Resource [place] Suicide Severity Rating Scale (C-SSRS) CSSRS Past [...] on filedocumented in this encounter Care Teams Nuclear Powerplant Mechanic Relationship Specialty Start Date End Date Manuel Bingham MD [address] [place] [address] PCP - General Family Medicine 07/31/24 documented as of this encounter
--- OUTSIDE RECORDS SUMMARY | 2024-11-24 09:22 | XMS_ITS | Encounter Summary ---
Author Organization [employer] ([place], [place], [place], [place]) [address] [place] [place] [address] Care Team Providers Care Scoop Operator Name Role Phone Manuel Bingham MD Primary Care Provider + [phone] Encounter Details Date Type Department Care Team (Late st Contact Info) Description 08/30/2018 Transcribed Document [facility] [place] [facility] [place] [address] ProviderJohn MD [address] [place] [address] Social History Tobacco Use Types Packs/Day Years [...] Surgical history: heart cath. Endometrial Ablation. Cholecystectomy; (98337). colonoscopy. d&c. right carpal tunnel and right [...] EDT Height Source Stated Height Entry Format [place] Height/Length, [place] (ft) 5 ft Height/Length [place] 0 Inch CLINICALHEIGHT 152.4 cm [place] Body Weight 45.16 kg Weight Source, ED Standing scale Weight Entry Format [place] Weight [place] lb 190 lb CLINICALWEIGHT 86.36 kg Body [...] knee left w crutches Splint Location: Applioed by:editor at large Supervised by: Patient is neurovascularly intact status [...] Medical Plan Condition: Improved, Stable. Prescriptions: Prescription Systems Engineering Manager Pharmacy: meloxicam 7.5 mg oral tablet (Prescribe): [...] given the following educational materials: Back Exercises, Elin-vu-Vodt, Knee Sprain, Adult. Follow up with: ZOILA [...] on filedocumented in this encounter Care Teams Scoop Operator Relationship Specialty Start Date End Date Manuel Bingham MD [address] [place] [address] PCP - General Family Medicine 07/31/24 documented as of this encounter
--- OUTSIDE RECORDS SUMMARY | 2024-11-24 09:22 | XMS_ITS | Encounter Summary ---
Author Organization [employer] ([place], [place], [place], [place]) Address [address] [place] [address] Care Team Providers Care Green Belt Name Role Phone Manuel Bingham MD Primary Care Provider [phone] Encounter Details Date Type Department Care Team (Late st Contact Info) Description 07/19/2018 Transcribed Document [facility] [place] [address] [place] [address] ProviderJohn MD [address] [place] [address] Social History Tobacco Use Types Packs/Day Years [...] Communication Barrier : None Primary Language : Finnish Any Spiritual/Cultural Needs or Requests : No [...] CHERIE LUNA RN - 07/19/2018 19:39 EDT documented in this encounter Plan of Treatment Not on file documented as of this encounter Visit Diagnoses Not on filedocumented in this encounter Care Teams Green Belt Relationship Specialty Start Date End Date Manuel Bingham MD [address] [place] [address] PCP - General Family Medicine 07/31/24 documented as of this encounter
--- OUTSIDE RECORDS SUMMARY | 2024-11-24 09:22 | XMS_ITS | Encounter Summary ---
Author Organization [employer] ([place], [place], [place], [place]) Address [address] [place] [address] Care Team Providers Care Classroom Aide Name Role Phone Manuel Bingham MD Primary Care Provider + Encounter Details Date Type Department Care Team (Late st Contact Info) Description 07/19/2018 Transcribed Document [facility] [place] [facility] [place] [address] ProviderJohn MD [address] [place] [address] Social History Tobacco Use Types Packs/Day Years [...] SHE HAS BEEN HAVING SINCE [facility] ON 06/02/2018 IS GETTING WORSE. SHE WAS [...] Surgical history: heart cath. Endometrial Ablation. Cholecystectomy; (23239). colonoscopy. d&c. right carpal tunnel and right [...] Radiology results: Radiology Results (Last 48 hours) [id number] -- 07/19/2018 19:12 CT Spine Lumbar WO [...] 20:56 EDT, Discharge to: Home. Prescriptions: Prescription [facility]: cyclobenzaprine 10 mg oral tablet (Prescribe): 1 Tab, Oral, TID, for 10 Day(s), PRN: as needed for spasm, 30 Tab, 0 Refill(s) Sandoval 5 mg-325 mg oral tablet (Prescribe): 1 Tab, Oral, TID, for 2 Day(s), PRN: for pain, 6 Tab, 0 Refill(s), Prescription [facility]: Lidoderm 5% topical film (Prescribe): 1 [...] the following educational materials: Back Pain, Adult, Dhfe-qg-Bdot, Heat Therapy, Niea-jq-Lmop. Limitations: Limited activity. Follow up with: NO PRIM DR QUINTERO Within 2 to 3 days; SHELLY BELLAMY Within 2 to 3 days CALL THIS MD IN THE AM AND REPORT YOUR PAIN IS WORSE . Counseled: Patient, Regarding diagnosis, Regarding diagnostic results, Regarding treatment plan, Regarding prescription, Patient indicated understanding of instructions. Electronically signed by Sana, [facility] Conversion Geothermal Plant Manager Cerner at 07/15/2022 8:13 AM CDT documented in this encounter Plan of Treatment Not on file documented as of this encounter Visit Diagnoses Not on filedocumented in this encounter Care Teams Classroom Aide Relationship Specialty Start Date End Date Manuel Bingham MD [address] [place] [address] PCP - General Family Medicine 07/31/24 documented as of this encounter
--- OUTSIDE RECORDS SUMMARY | 2024-11-24 09:22 | XMS_ITS | Clinical Summary ---
Author Organization Healthcare Address [address] [place] [address] Care Team Providers Care Butcher Or Smallgoods Maker Name Role Phone Arben Rao MD Primary Care Provider [phone] Adeola Camara MD Unavailable Allergies No known [...] Department Care Team Description 09/20/2024 Orders Only [facility] Sleep Disorder [address] [place] [address] Nicki Moeller 09/14/2024 Orders Only [facility] Sleep Disorder [address] [place] [address] Nicki Moeller 09/02/2024 Results Follow-Up [facility] Sleep Disorder [address] [place] [address] Rosita Sutton APRN 08/25/2024 8:15 PM EDT Clinical Support [facility] Sleep Disorder [address] [place] [address] David Gupta Snoring; History of sleep apnea; At risk for central sleep apnea; Excessive daytime sleepiness; Severe obesity (BMI >= 40) (CMS/HCC) 08/25/2024 Outside [facility] [address] [place] [address] Madeleine Mireles MD JANAE (obstructive [...] 2020 [facility]-Zoster Vaccines (1 of 2) 2020 [id number]-75 Vaccine (1 - season) 2023 [facility]-Influenza Vaccine [...] Procedure Name Priority Date/Time Associated Diagnosis Comments [facility] ORDER Routine 09/20/2024 10:07 AM EDT ADULT SLEEP STUDY OVERNIGHT POLYSOMNOGRAPHY Routine 08/25/2024 8:49 PM EDT Snoring History of sleep apnea At risk for central sleep apnea Excessive daytime sleepiness Severe obesity (BMI >= 40) ([facility]) from Last 3 Months Results * DME Order (09/20/2024 10:07 AM EDT) [facility] SUPPLIER NAME [employer] [facility] D[facility] SUPPLIER PHONE [facility] DELIVERY STATUS Completed [facility] DELIVERY NOTE [facility] REQUESTED DELIVERY DATE 09/20/2024 [facility] ACTUAL DELIVERY DATE 09/20/2024 [facility] ITEM DESCRIPTION CPAP Machine, Resmed [facility] Comment: Qty: 1 Auto Min Pressure: 6 cm Auto Max Pressure: 16 cm Oxygen Usage: None [facility] ITEM DESCRIPTION PAP Mask, Fit to Comfort, 1 per 3 months [facility] Comment:Qty: 1 [facility] ITEM DESCRIPTION PAP Headgear, 1 per 6 months [facility] Comment:Qty: 1 [facility] ITEM DESCRIPTION PAP Humidifier, Heated [facility] Comment:Qty: 1 [facility] ITEM DESCRIPTION PAP Mask Interface Cushion, Fit to Comfort (A7031- 1 per month/ A7032- 2 per month/ A7033 - 2 per month) [facility] Comment:Qty: 1 [facility] ITEM DESCRIPTION Disposable PAP Filter, 2 per 1 month [facility] Comment:Qty: 1 [facility] ITEM DESCRIPTION Non-Disposable PAP Filter, 1 per 6 months [facility] Comment:Qty: 1 [facility] ITEM DESCRIPTION PAP Machine Tubing, Non-Heated, 1 per 3 months [facility] Comment:Qty: 1 [facility] ITEM DESCRIPTION PAP Monitoring, Per device availability [facility] Comment:Qty: 1 [facility] ITEM DESCRIPTION Humidifier Water Chamber, 1 per 6 months [facility] Comment:Qty: 1 [facility] ITEM DESCRIPTION PAP Chinstrap, 1 per 6 months [facility] Comment:Qty: 1 09/20/2024 10:0 7 AM EDT Rosita Sutton W[employer]CLOTH F[employer] DME ORDERABLES Final R esult [facility] * Adult Sleep Study Overnight Polysomnography (08/25/2024 8:49 PM EDT) 08/25/2024 8:49 PM EDT Narrative [facility] - 09/01/2024 3:57 PM EDT General Information:See Media Viewer for report. This statement produced by Interface. us Rosita Sutton [facility] ORDERABLES Final Result [facility] from Last 3 Months Insurance [facility] MEDICARE Care Teams Butcher Or Smallgoods Maker Relationship Specialty Start Date End Date Arben Rao MD [address] [place] [address] PCP - General 09/04/21 Adeola Camara MD [id number] [place] [id number] Surgeon Neurosurgery 09/04/21
--- OUTSIDE RECORDS SUMMARY | 2024-11-24 09:22 | XMS_ITS | Encounter Summary ---
Author Organization [employer] ([place], [place], [place], [place]) Address [address] [place] [address] Care Team Providers Care Supervisor Securities Vault Name Role Phone Manuel Bingham MD Primary Care Provider + Encounter Details Date Type Department Care Team (Late st Contact Info) Description 02/27/2020 Transcribed Document [facility] [place] [address] [place] [address] ProviderJohn MD [address] [place] [address] Social History Tobacco Use Types Packs/Day Years Used Date Smoking Tobacco: Never Assessed Comments Unknown Sex and Gender Information Value Date Recorded Sex Assigned at Not on file Legal Sex Female 4:40 PM CDT Gender Identity Not on file Sexual Orientation Not on file documented as of this encounter Miscellaneous Notes * Cerner Conversion Note - Historical ProviderMD - 02/27/2020 9:22 PM BLUEPRINT CUTTER ED Assessment Entered On: 02/28/2020 2:52 EST Performed On: 02/27/2020 21:30 EST by Raman Peterson, underground mining section foreman Quick Look Assessment Level of Consciousness : Alert, Awake Affect/Behavior : Appropriate, Calm, Cooperative Orientation : Oriented x 4 Skin Temperature : Warm Skin Description : Normal for ethnicity Raman Peterson, Rn - 02/28/2020 2:43 EST ED General-Functional Assess Preferred Communication Mode : Verbal Communication Barrier : None Primary Language : Wolof Any Spiritual/Cultural Needs or Requests : No [...] Assessment, ED Genitourinary Assessment WDL : Raman Samlon Rn - 02/28/2020 2:43 EST Musculoskeletal Musculoskeletal Assessment WDL : Raman Salmon Rn - 02/28/2020 2:43 EST Integumentary Assessment Integumentary Assessment WDL : Raman Salmon Rn - 02/28/2020 2:43 EST Neurologic ASMT, ED Neurologic Assessment WDL : Raman Salmon Rn - 02/28/2020 2:43 EST Electronically signed by Sana [facility] Conversion Earthmoving Plant Operator Cerner at 07/15/2022 8:22 AM CDT documented in this encounter Plan of Treatment Not on file documented as of this encounter Visit Diagnoses Not on filedocumented in this encounter Care Teams Supervisor Securities Vault Relationship Specialty Start Date End Date Manuel Bingham MD [address] [place] [address] PCP - General Family Medicine 07/31/24 documented as of this encounter
--- OUTSIDE RECORDS SUMMARY | 2024-11-24 09:22 | XMS_ITS | Encounter Summary ---
Author Organization [employer] ([place], [place], [place], [place]) Address [address] [place] [address] Care Team Providers Care Assembler Erector Name Role Phone Manuel Bingham MD Primary Care Provider [phone] Encounter Details Date Type Department Care Team (Late st Contact Info) Description 08/30/2018 Transcribed Document [facility] [place] [address] [place] [address] ProviderJohn MD [address] [place] [address] Social History Tobacco Use Types Packs/Day Years [...] 08/30/2018 9:58 PM CDT Electronically signed by [facility] Conversion Senior Accounting Manager Cerner at 07/15/2022 8:11 AM CDT documented in this encounter Plan of Treatment Not on file documented as of this encounter Visit Diagnoses Not on filedocumented in this encounter Care Teams Assembler Erector Relationship Specialty Start Date End Date Manuel Bingham MD [address] [place] [address] PCP - General Family Medicine 07/31/24 documented as of this encounter
--- OUTSIDE RECORDS SUMMARY | 2024-11-24 09:23 | XMS_ITS | Clinical Summary ---
Author Organization [employer] ([place], [place], [place], [place]) Address [address] [place] [address] Care Team Providers Care Certified Lactation Counselor Name Role Phone Manuel Bingham MD [...] 2024 Pneumococcal 50+ years Completed 03/04/2024 Insurance [facility] MEDICARE HMO Care Teams Certified Lactation Counselor Relationship Specialty Start Date End Date Manuel Bingham MD [address] [place] [address] PCP - General Family Medicine 07/31/24
--- OUTSIDE RECORDS SUMMARY | 2024-11-24 09:23 | XMS_ITS | Encounter Summary ---
Author Organization [employer] ([place], [place], [place], [place]) Address [address] [place] [address] Care Team Providers Care Pilates Coordinator Name Role Phone Manuel Bingham MD Primary Care Provider + Encounter Details Date Type Department Care Team (Late st Contact Info) Description 02/24/2020 Transcribed Document [facility] [place] [address] [place] [address] ProviderJohn MD [address] [place] [address] Social History Tobacco Use Types Packs/Day Years Used Date Smoking Tobacco: Never Assessed Comments Unknown Sex and Gender Information Value Date Recorded Sex Assigned at Not on file Legal Sex Female 4:40 PM CDT Gender Identity Not on file Sexual Orientation Not on file documented as of this encounter Miscellaneous Notes * Cerner Conversion Note - John ProviderMD - 02/24/2020 4:21 PM NURSE INSTRUCTOR ED Discharge Entered On: 02/24/2020 16:22 EST [...] on filedocumented in this encounter Care Teams Pilates Coordinator Relationship Specialty Start Date End Date Manuel Bingham MD [address] [place] [address] PCP - General Family Medicine 07/31/24 documented as of this encounter
--- OUTSIDE RECORDS SUMMARY | 2024-11-24 09:23 | XMS_ITS | Encounter Summary ---
Author Organization [employer] ([place], [place], [place], [place]) Address [address] [place] [address] Care Team Providers Care Slaughterer Religious Ritual Name Role Phone Manuel Bingham MD Primary Care Provider + Encounter Details Date Type Department Care Team (Late st Contact Info) Description 11/30/2019 Transcribed Document [facility] [place] Medicine [facility] [place] [address] ProviderJohn MD [address] [place] [address] Social History Tobacco Use Types [...] Frank MD - 11/30/2019 4:00 [place] [address] JESSICA SAWYER :1970 Visit Time:11/29/2019 Your Visit [...] Inhalation Four Times A Day Pickup at [facility]/pharmacy #[id number] aspirin (aspirin 81 mg oral tablet) 1 [...] 1 Tablet(s) Oral Every Day Pharmacy Information [facility]/pharmacy #[id number]: [address] [place], [place] [id number] [phone] The home medications listed are only as [...] range between ( 1.0 and 7.0 ) Granite #: 0.56 K/uL -- Normal range between ( 0.24 and 0.82 ) Eos #: 0.18 K/uL -- Normal range between ( 0.04 and 0.54 ) Granite %: 6.6 % -- Normal range between [...] these instructions at home: Medicines ??? Take wzol-ifo-xmagnux and prescription medicines only as told by [...] 03/19/2004 Document Revised: 02/27/2018 Document Reviewed: 03/13/2017 [employer] Patient Education ?? 2020 Stepsss. Emergency Awareness and Preventative Care STROKE is [...] Assistance with quitting is available by contacting 8-690-BIIM-NOW. This is a free resource providing counseling, [...] was given the opportunity to ask questions. Patient/Paint Trimmer Pipe Bowls Name: Patient/Paint Trimmer Pipe Bowls Signature: Relationship to Patient: Clinician/Hospital Paint Trimmer Pipe Bowls Signature: Please Provide a Telephone Number Where You Can Be Reached: Is it Permissible To Leave a Message? Date: Electronically signed by Sana, [facility] Conversion Biologist Sandeep at 07/15/2022 8:05 AM CDT documented in this encounter Plan of Treatment Not on file documented as of this encounter Visit Diagnoses Not on filedocumented in this encounter Care Teams Slaughterer Religious Ritual Relationship Specialty Start Date End Date Manuel Bingham MD [address] [place] [address] PCP - General Family Medicine 07/31/24 documented as of this encounter
--- OUTSIDE RECORDS SUMMARY | 2024-11-24 09:23 | XMS_ITS | Encounter Summary ---
Author Organization [employer] ([place], [place], [place], [place]) Address [address] [place] [address] Care Team Providers Care Monitoring Tech Name Role Phone Manuel Bingham MD Primary Care Provider + [phone] Encounter Details Date Type Department Care Team (Late st Contact Info) Description 11/30/2019 Transcribed Document [facility] Radiology [address] [place] [address] Devyn Gross MD [address] [place] [address] Dept[place] [address] Social History Tobacco Use Types [...] 4:37 AM EDT Electronically signed by [facility] Conversion Utility Aircrewman Cerner at 07/15/2022 8:13 AM CDT documented in this encounter Plan of Treatment Not on file documented as of this encounter Visit Diagnoses Not on filedocumented in this encounter Care Teams Monitoring Tech Relationship Specialty Start Date End Date Manuel Bingham MD [address] [place] [phone] PCP - General Family Medicine 07/31/24 documented as of this encounter
--- OUTSIDE RECORDS SUMMARY | 2024-11-24 09:23 | XMS_ITS | Encounter Summary ---
Author Organization [employer] ([place], [place], [place], [place]) Address [address] [place] [address] Care Team Providers Care Workcell Operator Name Role Phone Manuel Bingham MD Primary Care Provider + Encounter Details Date Type Department Care Team (Late st Contact Info) Description 02/24/2020 Transcribed Document [facility] Family Medicine [facility] [place] [address] ProviderJohn MD [address] [place] [address] Social History Tobacco Use Types Packs/Day Years Used Date Smoking Tobacco: Never Assessed Comments Unknown Sex and Gender Information Value Date Recorded Sex Assigned at Not on file Legal Sex Female 4:40 PM CDT Gender Identity Not on file Sexual Orientation Not on file documented as of this encounter Miscellaneous Notes * Cerner Conversion Note - Historical ProviderMD - 02/24/2020 2:54 PM CORPORATE SECURITIES RESEARCH ANALYST Patient: JESSICA SAWYER Age: 49 years Sex: Female : 1970 Associated Diagnoses: Clinical diagnosis of COVID-19 Author: PALLAVI LUU APRN-EMR Basic Information Time seen: Date & time [...] since this morning. Denies tylenol or motrin radio division captain. Denies soa or chest pain. . [...] Surgical history: heart cath. Endometrial Ablation. Cholecystectomy; (97282). colonoscopy. d&c. right carpal tunnel and right [...] EST Height Source Stated Height Entry Format [place] Height/Length, ROMANIAN (ft) 5 ft Height/Length ROMANIAN 4 Inch CLINICALHEIGHT 162.56 cm [place] Body Weight 54.3 kg Weight Source, ED Critical estimated dosing weight Weight Entry Format [place] Weight Luxembourgish lb 190 lb CLINICALWEIGHT 86.36 kg Body [...] on filedocumented in this encounter Care Teams Workcell Operator Relationship Specialty Start Date End Date Manuel Bingham MD [address] [place] [address] PCP - General Family Medicine 07/31/24 documented as of this encounter
--- OUTSIDE RECORDS SUMMARY | 2024-11-24 09:23 | XMS_ITS | Encounter Summary ---
Author Organization [employer] ([place], [place], [place], [place]) Address [address] [place] [address] Care Team Providers Care Mushroom Picker Name Role Phone Manuel Bingham MD Primary Care Provider + Encounter Details Date Type Department Care Team (Late st Contact Info) Description 11/30/2019 Transcribed Document [facility] [place] [address] ProviderJohn MD [address] [place] [address] Social History Tobacco Use Types Packs/Day [...] by Provider, No further action required x1 Electronically signed by Floyd Hood Conversion Bibliographic Services Specialist Cerner at 07/15/2022 8:10 AM CDT documented in this encounter Plan of Treatment Not on file documented as of this encounter Visit Diagnoses Not on filedocumented in this encounter Care Teams Mushroom Picker Relationship Specialty Start Date End Date Manuel Bingham MD [address] [place] [phone] PCP - General Family Medicine 07/31/24 documented as of this encounter
--- OUTSIDE RECORDS SUMMARY | 2024-11-24 09:23 | XMS_ITS | Encounter Summary ---
Author Organization [employer] ([place], [place], [place], [place]) Address [address] [place] [address] Care Team Providers Care Asphalt Paver Operator Name Role Phone Manuel Bingham MD Primary Care Provider + Encounter Details Date Type Department Care Team (Late st Contact Info) Description 11/29/2019 Transcribed Document [facility] [place] [address] [place] [address] ProviderJohn MD [address] [place] [address] Social History Tobacco Use Types Packs/Day Years [...] On: 11/30/2019 3:11 EDT by Sydni Guerra, scoop filler Quick Look Assessment Level of Consciousness : Alert, Awake Affect/Behavior : Appropriate, Calm, Cooperative Orientation : Oriented x 4 Skin Temperature : Warm Skin Description : Normal for ethnicity Sydni Guerra Rn - 11/30/2019 3:11 EDT ED General-Functional Assess Information Obtained From : Patient Preferred Communication Mode : Verbal Communication Barrier : None Primary Language : Latvian Any Spiritual/Cultural Needs or Requests : No [...] Rhythm : Regular Nail Bed Color : [place] Chest Pain : No Sydni Guerra Rn [...] by Sana [facility] Conversion Petroleum Sampler Cerner at 07/15/2022 8:09 AM CDT documented in this encounter Plan of Treatment Not on file documented as of this encounter Visit Diagnoses Not on filedocumented in this encounter Care Teams Asphalt Paver Operator Relationship Specialty Start Date End Date Manuel Bingham MD [address] [place] [address] PCP - General Family Medicine 07/31/24 documented as of this encounter
--- OUTSIDE RECORDS SUMMARY | 2024-11-24 09:23 | XMS_ITS | Encounter Summary ---
Author Organization [employer] ([place], [place], [place], [place]) Address [address] [place] [address] Care Team Providers Care Convalescent Sitter Name Role Phone Manuel Bingham MD Primary Care Provider + Encounter Details Date Type Department Care Team (Late st Contact Info) Description 02/28/2020 Transcribed Document [facility] [place] Family Medicine [address] [place] [address] ProviderJohn MD [address] [place] [address] Social History Tobacco Use Types [...] John Frank MD - 02/28/2020 7:19 AM MANAGED CARE DIRECTOR ED Discharge Entered On: 02/28/2020 7:19 EST Performed On: 02/28/2020 7:19 EST by LIS VASQUEZ RN Discharge Process Patient Disposition : Discharge LIS VASQUEZ RN - 02/28/2020 7:19 EST Electronically signed by Sana [facility] Conversion Dishing Machine Operator Cerner at 07/15/2022 8:16 AM CDT documented in this encounter Plan of Treatment Not on file documented as of this encounter Visit Diagnoses Not on filedocumented in this encounter Care Teams Convalescent Sitter Relationship Specialty Start Date End Date Manuel Bingham MD [address] [place] [phone] PCP - General Family Medicine 07/31/24 documented as of this encounter
--- OUTSIDE RECORDS SUMMARY | 2024-11-24 09:23 | XMS_ITS | Encounter Summary ---
Author Organization [employer] ([place], [place], [place], [place]) Address [address] [place] [address] Care Team Providers Care Refinery Operator Alkylation Name Role Phone Manuel Bingham MD Primary Care Provider + Encounter Details Date Type Department Care Team (Late st Contact Info) Description 11/29/2019 Transcribed Document [facility] [place] [facility] [place] [address] ProviderJohn MD [address] [place] [address] Social History Tobacco Use Types Packs/Day Years Used Date Smoking Tobacco: Never Assessed Comments Unknown Sex and Gender Information Value Date Recorded Sex Assigned at Not on file Legal Sex Female 4:40 PM CDT Gender Identity Not on file Sexual Orientation Not on file documented as of this encounter Miscellaneous Notes * Cerner Conversion Note - John ProviderMD - 11/29/2019 11:44 PM CDT [place] Suicide Severity Rating Scale (C-SSRS) Entered On: 11/30/2019 3:11 EDT Performed On: 11/30/2019 1:20 EDT by Sydni Guerra Rn [place] Suicide Severity Rating Scale (C-SSRS) CSSRS Past [...] on filedocumented in this encounter Care Teams Refinery Operator Alkylation Relationship Specialty Start Date End Date Manuel Bingham MD [address] [place] [address] PCP - General Family Medicine 07/31/24 documented as of this encounter
--- OUTSIDE RECORDS SUMMARY | 2024-11-24 09:23 | XMS_ITS | Encounter Summary ---
Author Organization [employer] ([place], [place], [place], [place]) Address [address] [place] [address] Care Team Providers Care Inner Tube Cutter Name Role Phone Manuel Bingham MD Primary Care Provider + Encounter Details Date Type Department Care Team (Late st Contact Info) Description 02/27/2020 Transcribed Document [facility] Family Medicine [place] [address] ProviderJohn MD [address] [place] [address] Social History Tobacco Use Types [...] - John ProviderMD - 02/27/2020 9:22 PM MIXER PIGMENT ED Triage Entered On: 02/27/2020 21:49 EST [...] EST DCP GENERIC CODE Tracking Group : [facility] ED East Tracking Acuity : 3 [...] 02/27/2020 21:50:26 EST) Problems(Active) Anxiety (SNOMED CT :65821483 ) Name of Problem: Anxiety ; Recorder: Pearl Espino RN; Confirmation: Confirmed ; Classification: Medical ; Code: 47956603 ; Contributor System: [employer] ; Last Updated: 12/19/2016 10:22 EDT ; Life Cycle Date: 12/22/2015 ; Life Cycle Status: Active ; Vocabulary: SNOMED CT CHF (congestive heart failure) (SNOMED CT :65207772 ) Name of Problem: CHF (congestive heart failure) ; Recorder: RAMILA CHIU; Confirmation: Confirmed ; Classification: Medical ; Code: 90084898 ; Contributor System: Power[employer] ; Last Updated: 02/24/2020 14:48 EST ; Life Cycle Date: 02/24/2020 ; Life Cycle Status: Active ; Vocabulary: SNOMED CT Endometriosis (SNOMED CT :8691974778 ) Name of Problem: Endometriosis ; Recorder: Pearl Espino RN; Confirmation: Confirmed ; Classification: Medical ; Code: 7463558856 ; Contributor System: Power[employer] ; Last Updated: 12/22/2015 6:56 EDT ; Life Cycle Date: 12/22/2015 ; Life Cycle Status: Active ; Vocabulary: SNOMED CT HTN (SNOMED CT :4551668201 ) Name of Problem: HTN ; Recorder: Pearl Espino RN; Confirmation: Confirmed ; Classification: Medical ; Code: 6611306889 ; Contributor System: PowerChart ; Last Updated: 09/30/2016 16:39 EDT ; Life Cycle Date: 12/22/2015 ; Life Cycle Status: Active ; Vocabulary: SNOMED CT S/P cholecystectomy (SNOMED CT :2431101062 ) Name of Problem: S/P cholecystectomy ; Recorder: BELIA VELÁZQUEZ RN; Confirmation: Confirmed ; Classification: Medical ; Code: 8860263727 ; Contributor System: PowerChart ; Last Updated: 02/27/2020 21:44 EST ; Life Cycle Date: 02/27/2020 ; Life Cycle Status: Active ; Vocabulary: SNOMED CT S/P hysterectomy (SNOMED CT :072311038 ) Name of Problem: S/P hysterectomy ; Recorder: BELIA VELÁZQUEZ RN; Confirmation: Confirmed ; Classification: Medical ; Code: 970454155 ; Contributor System: PowerChart ; Last Updated: 07/19/2018 19:29 EDT ; Life Cycle Date: 07/19/2018 ; Life Cycle Status: Active ; Vocabulary: SNOMED CT Diagnoses(Active) Cough Date: 02/27/2020 ; Diagnosis Type: Reason For Visit ; Confirmation: Complaint of ; Clinical Dx: Cough ; Classification: Medical ; Clinical Service: Emergency medicine ; Code: PNED ; Probability: 0 ; Diagnosis Code: [id number] Fever Date: 02/27/2020 ; Diagnosis Type: Reason For Visit ; Confirmation: Complaint of ; Clinical Dx: Fever ; Classification: Medical ; Clinical Service: Emergency medicine ; Code: PNED ; Probability: 0 ; Diagnosis Code: [id number] ED Height and Weight Height Source : Measured Height Entry Format : [place] Height, Feet : 4 ft(Converted to: 122 cm, 48 Inch) Height, Inches : 11 Inch(Converted to: 0 ft 11 Inch, 27.94 cm) Clinical Height : 149.86 cm Weight Source, ED : Standing scale Weight Entry Format : [place] Weight, Pounds : 190 lb Clinical Dosing Weight : 86.36 kg Body Surface Area (BSA) : 1.81 m2 Body Mass Index : 38.5 kg/m2 (HI) [place] Body Weight (IBW) : 42.87 kg BELIA [...] BELIA VELÁZQUEZ RN - 02/27/2020 21:43 EST documented in this encounter Plan of Treatment Not on file documented as of this encounter Visit Diagnoses Not on filedocumented in this encounter Care Teams Inner Tube Cutter Relationship Specialty Start Date End Date Manuel Bingham MD [address] [place] [address] PCP - General Family Medicine 07/31/24 documented as of this encounter
--- OUTSIDE RECORDS SUMMARY | 2024-11-24 09:23 | XMS_ITS | Encounter Summary ---
Author Organization [employer] ([place], [place], [place], [place]) Address [address] [place] [address] Care Team Providers Care Pocket Assembler Name Role Phone Manuel Bingham MD Primary Care Provider + Encounter Details Date Type Department Care Team (Late st Contact Info) Description 11/29/2019 Transcribed Document [facility] [place] [address] ProviderJohn MD [address] [place] [address] Social History Tobacco Use Types Packs/Day Years [...] On: 11/30/2019 0:39 EDT by FRANKIE CRESPO, ROUNDING MACHINE OPERATOR Triage Across the Room Chief Complaint : Pt co Increased SOA with mid chest pain that began this AM. pt is calm alert skinpwd. Triage Date/Time : 11/30/2019 0:39 EDT FRANKIE CRESPO RN - 11/30/2019 0:39 EDT DCP GENERIC CODE Tracking Acuity : 2 - Emergent Tracking Group : [facility] ED East FRANKIE CRESPO RN [...] 11/30/2019 00:41:48 EDT) Problems(Active) Anxiety (SNOMED CT :90202621 ) Name of Problem: Anxiety ; Recorder: Pearl Espino RN; Confirmation: Confirmed ; Classification: Medical ; Code: 56703495 ; Contributor System: [employer] ; Last Updated: 12/19/2016 10:22 EDT ; Life Cycle Date: 12/22/2015 ; Life Cycle Status: Active ; Vocabulary: SNOMED CT Endometriosis (SNOMED CT :8116539751 ) Name of Problem: Endometriosis ; Recorder: Pearl Espino RN; Confirmation: Confirmed ; Classification: Medical ; Code: 2450808219 ; Contributor System: [employer] ; Last Updated: 12/22/2015 6:56 EDT ; Life Cycle Date: 12/22/2015 ; Life Cycle Status: Active ; Vocabulary: SNOMED CT HTN (SNOMED CT :1012737091 ) Name of Problem: HTN ; Recorder: Pearl Espino RN; Confirmation: Confirmed ; Classification: Medical ; Code: 0416330027 ; Contributor System: [employer] ; Last Updated: 09/30/2016 16:39 EDT ; Life Cycle Date: 12/22/2015 ; Life Cycle Status: Active ; Vocabulary: SNOMED CT S/P hysterectomy (SNOMED CT :841362215 ) Name of Problem: S/P hysterectomy ; Recorder: BELIA VELÁZQUEZ RN; Confirmation: Confirmed ; Classification: Medical ; Code: 282705987 ; Contributor System: [employer] ; Last Updated: 07/19/2018 19:29 EDT ; Life Cycle Date: 07/19/2018 ; Life Cycle Status: Active ; Vocabulary: SNOMED CT Diagnoses(Active) Chest pain Date: 11/30/2019 ; Diagnosis Type: Reason For Visit ; Confirmation: Complaint of ; Clinical Dx: Chest pain ; Classification: Medical ; Clinical Service: Emergency medicine ; Code: PNED ; Probability: 0 ; Diagnosis Code: [id number] ED Height and Weight Height Source : Measured Height Entry Format : [place] Height, Feet : 5 ft(Converted to: 152 cm, 60 Inch) Height, Inches : 0 Inch(Converted to: 0 ft 0 Inch, 0.00 cm) Clinical Height : 152.4 cm Weight Source, ED : Standing scale Weight Entry Format : [place] Weight, Pounds : 217 lb Clinical Dosing Weight : 98.64 kg Body Surface Area (BSA) : 1.93 m2 Body Mass Index : 42.5 kg/m2 (>HHI) [place] Body Weight (IBW) : 45.16 kg FRANKIE [...] on filedocumented in this encounter Care Teams Pocket Assembler Relationship Specialty Start Date End Date Manuel Bingham MD [address] [place] [phone] PCP - General Family Medicine 07/31/24 documented as of this encounter
--- OUTSIDE RECORDS SUMMARY | 2024-11-24 09:23 | XMS_ITS | Encounter Summary ---
Author Organization [employer] ([place], [place], [place], [place]) Address [address] [place] [address] Care Team Providers Care Radiologic Technologist Chief Name Role Phone Manuel Bingham MD Primary Care Provider + Encounter Details Date Type Department Care Team (Late st Contact Info) Description 02/24/2020 Transcribed Document [facility] Family Medicine [place] [address] ProviderJohn MD [address] [place] [id number] Social History Tobacco Use Types Packs/Day Years Used Date Smoking Tobacco: Never Assessed Comments Unknown Sex and Gender Information Value Date Recorded Sex Assigned at Not on file Legal Sex Female 4:40 PM CDT Gender Identity Not on file Sexual Orientation Not on file documented as of this encounter Miscellaneous Notes * Cerner Conversion Note - Historical ProviderMD - 02/24/2020 4:12 PM UNIFORM PATROL POLICE OFFICER Novel Coronavirus 2019 - - Positive 02/24/2020 15:53 02/24/2020 16:12 (MITCHEL RAWLS PA) Reviewed by Provider, No further action required Test resulted while patient in ED. documented in this encounter Plan of Treatment Not on file documented as of this encounter Visit Diagnoses Not on filedocumented in this encounter Care Teams Radiologic Technologist Chief Relationship Specialty Start Date End Date Manuel Bingham MD [address] [place] [address] [phone] PCP - General Family Medicine 07/31/24 documented as of this encounter
--- OUTSIDE RECORDS SUMMARY | 2024-11-24 09:23 | XMS_ITS | Encounter Summary ---
Author Organization [employer] ([place], [place], [place], [place]) Address [address] [place] [address] Care Team Providers Care Sports Medicine Physician Name Role Phone Manuel Bingham MD Primary Care Provider + Encounter Details Date Type Department Care Team (Late st Contact Info) Description 02/24/2020 Transcribed Document [facility] Family Medicine [address] [place] [address] ProviderJohn MD [address], [place] [id number] Social History Tobacco Use Types Packs/Day Years Used Date Smoking Tobacco: Never Assessed Comments Unknown Sex and Gender Information Value Date Recorded Sex Assigned at Not on file Legal Sex Female 4:40 PM CDT Gender Identity Not on file Sexual Orientation Not on file documented as of this encounter Miscellaneous Notes * Cerner Conversion Note - Historical ProviderMD - 02/24/2020 2:34 PM CRATE REPAIRER [place] Violence Assessment Entered On: 02/24/2020 16:22 EST Performed On: 02/24/2020 16:22 EST by LIS VASQUEZ RN Bro[place] Violence Assessment [place] Violence Checklist of Symptoms : None [place] Violence Symptoms Subtotal : 0 [place] Violence Symptoms Indicator : Low risk (0) LIS VASQUEZ RN - 02/24/2020 16:22 EST Electronically signed by Sana [facility] Conversion Drafting Detailer Cerner at 07/15/2022 8:18 AM CDT documented in this encounter Plan of Treatment Not on file documented as of this encounter Visit Diagnoses Not on filedocumented in this encounter Care Teams Sports Medicine Physician Relationship Specialty Start Date End Date Manuel Bingham MD [address] [place] [phone] PCP - General Family Medicine 07/31/24 documented as of this encounter
--- OUTSIDE RECORDS SUMMARY | 2024-11-24 09:23 | XMS_ITS | Referral Summary ---
Author Organization [employer] ([place], [place], [place], [place]) Address [address] [place] [address] Care Team Providers Care Md Urologist Name Role Phone Manuel Bingham MD Primary [...] file Insurance [employer] MEDICARE HMO Care Teams Md Urologist Relationship Specialty Start Date End Date Manuel Bingham MD [address] [place] [address] PCP - General Family Medicine 07/31/24
--- OUTSIDE RECORDS SUMMARY | 2024-11-24 09:23 | XMS_ITS | Encounter Summary ---
Author Organization [employer] ([place], [place], [place], [place]) Address [address] [place] [address] Care Team Providers Care College President Name Role Phone Manuel Bingham MD Primary Care Provider + Encounter Details Date Type Department Care Team (Late st Contact Info) Description 02/24/2020 Transcribed Document [facility] [place] Family Medicine [address] [place] [address] ProviderJohn MD [address] [place] [address] Social History Tobacco Use Types Packs/Day Years Used Date Smoking Tobacco: Never Assessed Comments Unknown Sex and Gender Information Value Date Recorded Sex Assigned at Not on file Legal Sex Female 4:40 PM CDT Gender Identity Not on file Sexual Orientation Not on file documented as of this encounter Miscellaneous Notes * Cerner Conversion Note - Historical ProviderMD - 02/24/2020 2:34 PM JOINT YARNER [place] Suicide Severity Rating Scale (C-SSRS) Entered On: 02/24/2020 16:22 EST Performed On: 02/24/2020 16:22 EST by LIS VASQUEZ RN [place] Suicide Severity Rating Scale (C-SSRS) CSSRS Past [...] on filedocumented in this encounter Care Teams College President Relationship Specialty Start Date End Date Manuel Bingham MD [address] [place] [address] PCP - General Family Medicine 07/31/24 documented as of this encounter
--- OUTSIDE RECORDS SUMMARY | 2024-11-24 09:23 | XMS_ITS | Encounter Summary ---
Author Organization [employer] ([place], [place], [place], [place]) Address [address] [place] [address] Care Team Providers Care Load Test Mechanic Name Role Phone Manuel Bingham MD Primary Care Provider + Encounter Details Date Type Department Care Team (Late st Contact Info) Description 11/30/2019 Transcribed Document [facility] Radiology [address] [place] [address] Devyn Roman MD [address] [place] [address] Dept. of Emergency Medicine [place] [id number] Social History Tobacco Use Types Packs/Day Years [...] Surgical history: heart cath. Endometrial Ablation. Cholecystectomy; (76606). colonoscopy. d&c. right carpal tunnel and right [...] medicine, Medical Plan Condition: Stable. Prescriptions: Prescription Electric Organ Assembler And Checker Pharmacy: albuterol CFC free 90 mcg/inh inhalation [...] on filedocumented in this encounter Care Teams Load Test Mechanic Relationship Specialty Start Date End Date Manuel Bingham MD [address] [place] [address] PCP - General Family Medicine 07/31/24 documented as of this encounter
--- OUTSIDE RECORDS SUMMARY | 2024-11-24 09:23 | XMS_ITS | Encounter Summary ---
Author Organization [employer] ([place], [place], [place], [place]) Address [address] [place] [address] Care Team Providers Care Parts Classifier Name Role Phone Manuel Bingham MD Primary Care Provider + Encounter Details Date Type Department Care Team (Late st Contact Info) Description 02/24/2020 Transcribed Document [facility] [place] [address] [place] [address] ProviderJohn MD [address] [place], [place] [address] Social History Tobacco Use Types Packs/Day Years Used Date Smoking Tobacco: Never Assessed Comments Unknown Sex and Gender Information Value Date Recorded Sex Assigned at Not on file Legal Sex Female 4:40 PM CDT Gender Identity Not on file Sexual Orientation Not on file documented as of this encounter Miscellaneous Notes * Cerner Conversion Note - Historical ProviderMD - 02/24/2020 2:34 PM ADDRESSING MACHINE OPERATOR ED Assessment Entered On: 02/24/2020 16:24 EST [...] on filedocumented in this encounter Care Teams Parts Classifier Relationship Specialty Start Date End Date Manuel Bingham MD [address] [place] [address] PCP - General Family Medicine 07/31/24 documented as of this encounter
--- OUTSIDE RECORDS SUMMARY | 2024-11-24 09:23 | XMS_ITS | Encounter Summary ---
Author Organization [employer] ([place], [place], [place], [place]) Address [address] [place] [address] Care Team Providers Care Machine Leather Trimmer Name Role Phone Manuel Bingham MD Primary Care Provider + Encounter Details Date Type Department Care Team (Late st Contact Info) Description 02/24/2020 Transcribed Document [facility] [place] [address] [place] [address] ProviderJohn MD [address] [place] [id number] Social History Tobacco Use Types Packs/Day Years Used Date Smoking Tobacco: Never Assessed Comments Unknown Sex and Gender Information Value Date Recorded Sex Assigned at Not on file Legal Sex Female 4:40 PM CDT Gender Identity Not on file Sexual Orientation Not on file documented as of this encounter Miscellaneous Notes * Cerner Conversion Note - Historical ProviderMD - 02/24/2020 2:34 PM TUMBLER PLATER ED Triage Entered On: 02/24/2020 14:49 EST Performed On: 02/24/2020 14:47 EST by RAMILA CHIU ED Triage Across the Room Chief Complaint : C/o fever and cough since 2 am Triage Date/Time : 02/24/2020 14:47 EST RAMILA CHIU - 02/24/2020 14:47 EST DCP GENERIC CODE Tracking Acuity : 4 - Non - Urgent Tracking Group : [facility] ED [facility] RAMILA CHIU - 02/24/2020 14:47 EST Mode [...] 02/24/2020 14:49:24 EST) Problems(Active) Anxiety (SNOMED CT :32692705 ) Name of Problem: Anxiety ; Recorder: Pearl Espino RN; Confirmation: Confirmed ; Classification: Medical ; Code: 40221005 ; Contributor System: [employer] ; Last Updated: 12/19/2016 10:22 EDT ; Life Cycle Date: 12/22/2015 ; Life Cycle Status: Active ; Vocabulary: SNOMED CT CHF (congestive heart failure) (SNOMED CT :91993324 ) Name of Problem: CHF (congestive heart failure) ; Recorder: RAMILA CHIU; Confirmation: Confirmed ; Classification: Medical ; Code: 00322840 ; Contributor System: [employer] ; Last Updated: 02/24/2020 14:48 EST ; Life Cycle Date: 02/24/2020 ; Life Cycle Status: Active ; Vocabulary: SNOMED CT Endometriosis (SNOMED CT :9858662304 ) Name of Problem: Endometriosis ; Recorder: Pearl Espino RN; Confirmation: Confirmed ; Classification: Medical ; Code: 7474121884 ; Contributor System: [employer] ; Last Updated: 12/22/2015 6:56 EDT ; Life Cycle Date: 12/22/2015 ; Life Cycle Status: Active ; Vocabulary: SNOMED CT HTN (SNOMED CT :7822953672 ) Name of Problem: HTN ; Recorder: Pearl Espino RN; Confirmation: Confirmed ; Classification: Medical ; Code: 1323546394 ; Contributor System: [employer] ; Last Updated: 09/30/2016 16:39 EDT ; Life Cycle Date: 12/22/2015 ; Life Cycle Status: Active ; Vocabulary: SNOMED CT S/P hysterectomy (SNOMED CT :029199687 ) Name of Problem: S/P hysterectomy ; Recorder: BELIA VELÁZQUEZ RN; Confirmation: Confirmed ; Classification: Medical ; Code: 858240944 ; Contributor System: [employer] ; Last Updated: 07/19/2018 19:29 EDT ; Life Cycle Date: 07/19/2018 ; Life Cycle Status: Active ; Vocabulary: SNOMED CT Diagnoses(Active) Cough Date: 02/24/2020 ; Diagnosis Type: Reason For Visit ; Confirmation: Complaint of ; Clinical Dx: Cough ; Classification: Medical ; Clinical Service: Emergency medicine ; Code: PNED ; Probability: 0 ; Diagnosis Code: [id number] ED Height and Weight Height Source : Stated Height Entry Format : [place] Height, Feet : 5 ft(Converted to: 152 cm, 60 Inch) Height, Inches : 4 Inch(Converted to: 0 ft 4 Inch, 10.16 cm) Clinical Height : 162.56 cm Weight Source, ED : Critical estimated dosing weight Weight Entry Format : [place] Weight, Pounds : 190 lb Clinical Dosing Weight : 86.36 kg Body Surface Area (BSA) : 1.92 m2 Body Mass Index : 32.7 kg/m2 (HI) [place] Body Weight (IBW) : 54.3 kg RAMILA CHIU 02/24/2020 14:47 EST documented in this encounter Plan of Treatment Not on file documented as of this encounter Visit Diagnoses Not on filedocumented in this encounter Care Teams Machine Leather Trimmer Relationship Specialty Start Date End Date Manuel Bingham MD [address] [place] [address] PCP - General Family Medicine 07/31/24 documented as of this encounter
--- OUTSIDE RECORDS SUMMARY | 2024-11-24 09:23 | XMS_ITS | Encounter Summary ---
Author Organization [employer] ([place], [place], [place], [place]) Address [address] [place] [address] Care Team Providers Care Billing Spec Name Role Phone Manuel Bingham MD Primary Care Provider + Encounter Details Date Type Department Care Team (Late st Contact Info) Description 02/27/2020 Transcribed Document [facility] [place] Family Medicine [address] [place] [address] ProviderJohn MD [address] [place] [address] Social History Tobacco Use Types Packs/Day Years Used Date Smoking Tobacco: Never Assessed Comments Unknown Sex and Gender Information Value Date Recorded Sex Assigned at Not on file Legal Sex Female 4:40 PM CDT Gender Identity Not on file Sexual Orientation Not on file documented as of this encounter Miscellaneous Notes * Cerner Conversion Note - Historical ProviderMD - 02/27/2020 9:22 PM LINUX NETWORK SYSTEMS ADMINISTRATOR [place] Suicide Severity Rating Scale (C-SSRS) Entered On: 02/28/2020 2:53 EST Performed On: 02/27/2020 21:30 EST by Raman Peterson, Rn [place] Suicide Severity Rating Scale (C-SSRS) CSSRS Past Month Wish to be : No CSSRS Past Month Suicidal Thoughts : No CSSRS Lifetime Suicide Behavior : No Suicide Severity Rating Score : 0 Suicide Severity Rating : No Additional Care Required at this time Raman Peterson, Rn - 02/28/2020 2:43 EST Electronically signed by Sana [facility] Conversion Stock Hanger Cerner at 07/15/2022 8:06 AM CDT documented in this encounter Plan of Treatment Not on file documented as of this encounter Visit Diagnoses Not on filedocumented in this encounter Care Teams Billing Spec Relationship Specialty Start Date End Date Manuel Bingham MD [address] [place] [address] PCP - General Family Medicine 07/31/24 documented as of this encounter
--- OUTSIDE RECORDS SUMMARY | 2024-11-24 09:23 | XMS_ITS | Encounter Summary ---
Author Organization [employer] ([place], [place], [place], [place]) Address [address] [place] [address] Care Team Providers Care Voice Engineer Name Role Phone Manuel Bingham MD Primary Care Provider +1 Encounter Details Date Type Department Care Team (Late st Contact Info) Description 02/24/2020 Transcribed Document [facility] Family Medicine [address] [place] [address] ProviderJohn MD [address] [place] [address] Social History Tobacco Use Types Packs/Day Years Used Date Smoking Tobacco: Never Assessed Comments Unknown Sex and Gender Information Value Date Recorded Sex Assigned at Not on file Legal Sex Female 4:40 PM CDT Gender Identity Not on file Sexual Orientation Not on file documented as of this encounter Miscellaneous Notes * Cerner Conversion Note - John ProviderMD - 02/24/2020 4:18 PM SOUND TRUCK OPERATOR Electronically signed by Sana [facility] Conversion Draw Frame Tender Cerner at 07/15/2022 8:28 AM CDT documented in this encounter Plan of Treatment Not on file documented as of this encounter Visit Diagnoses Not on filedocumented in this encounter Care Teams Voice Engineer Relationship Specialty Start Date End Date Manuel Bingham MD [address] [place] [address] PCP - General Family Medicine 07/31/24 documented as of this encounter
--- OUTSIDE RECORDS SUMMARY | 2024-11-24 09:23 | XMS_ITS | Encounter Summary ---
Author Organization [employer] ([place], [place], [place], [place]) Address [address] [place] [address] Care Team Providers Care Nurse Care Manager Name Role Phone Manuel Bingham MD Primary Care Provider + Encounter Details Date Type Department Care Team (Late st Contact Info) Description 02/25/2020 Transcribed Document [facility] Family Medicine [address] [place] [address] ProviderJohn MD [address] [place] [address] Social History Tobacco Use Types Packs/Day Years Used Date Smoking Tobacco: Never Assessed Comments Unknown Sex and Gender Information Value Date Recorded Sex Assigned at Not on file Legal Sex Female 4:40 PM CDT Gender Identity Not on file Sexual Orientation Not on file documented as of this encounter Miscellaneous Notes * [employer]ner Conversion Note - Historical ProviderMD - 02/25/2020 9:16 AM DISTRIBUTION TRANSFORMER ASSEMBLER CR Chest 1 Vw Portable Ordered: 02/24/2020 Modified Reason for Exam: cough 02/25/2020 07:43 02/25/2020 09:16 (MITCHEL RAWLS PA) Reviewed by Provider, No further action required x1 documented in this encounter Plan of Treatment Not on file documented as of this encounter Visit Diagnoses Not on filedocumented in this encounter Care Teams Nurse Care Manager Relationship Specialty Start Date End Date Manuel Bingham MD [address] [place] [phone] PCP - General Family Medicine 07/31/24 documented as of this encounter
--- OUTSIDE RECORDS SUMMARY | 2024-11-24 09:23 | XMS_ITS | Encounter Summary ---
Author Organization [employer] ([place], [place], [place], [place]) Address [address] [place] [address] Care Team Providers Care Radio Disc Jockey Name Role Phone Manuel Bingham MD Primary Care Provider +1 Encounter Details Date Type Department Care Team (Late st Contact Info) Description 02/28/2020 Transcribed Document [facility] [place] Family Medicine [address] [place] [address] ProviderJohn MD [address] [place] [address] Social History Tobacco Use Types Packs/Day Years Used Date Smoking Tobacco: Never Assessed Comments Unknown Sex and Gender Information Value Date Recorded Sex Assigned at Not on file Legal Sex Female 4:40 PM CDT Gender Identity Not on file Sexual Orientation Not on file documented as of this encounter Miscellaneous Notes * Cerner Conversion Note - John ProviderMD - 02/28/2020 4:31 AM RADIOCHEMICAL TECHNICIAN Electronically signed by Sana [facility] Conversion Stave Log Ripsaw Operator Cerner at 07/15/2022 8:06 AM CDT documented in this encounter Plan of Treatment Not on file documented as of this encounter Visit Diagnoses Not on filedocumented in this encounter Care Teams Radio Disc Jockey Relationship Specialty Start Date End Date Manuel Bingham MD [address] [place] [address] PCP - General Family Medicine 07/31/24 documented as of this encounter
--- OUTSIDE RECORDS SUMMARY | 2024-11-24 09:23 | XMS_ITS | Encounter Summary ---
Author Organization Healthcare Address [address] [place] [address] Care Team Providers Care Rn Physician Office Name Role Phone Arben Rao MD Primary Care Provider [phone] Adeola Camara MD Unavailable Reason for Referral * Consultation (Routine) - Closed Specialty Diagnoses / Procedures Referred By Contac t Referred To Contact Neurosurgery Diagnoses Abnormal MRI, spine Arben Rao MD [address] [place] [address] Phone: tel: fax: Referral ID Status Reason Start Date Expiration Date V isits Requested Visits Authorized [id number] Closed Specialty Services Required 08/20/2021 02/19/2023 1 1 Encounter Details Date Type Department Care Team (Late st Contact Info) Description 08/20/2021 Community [facility] Community Practice [address] [place] [address] Arben Rao MD [address] [id number] Abnormal MRI, spine (Primary Dx) Social History [...] Primary documented in this encounter Care Teams Rn Physician Office Relationship Specialty Start Date End Date Arben Rao MD [address] [place] [address] PCP - General 09/04/21 Adeola Camara MD [address] [facility] [address] [place] [address] Surgeon Neurosurgery 09/04/21 documented as of this encounter
--- OUTSIDE RECORDS SUMMARY | 2024-11-24 09:23 | XMS_ITS | Encounter Summary ---
Author Organization [employer] ([place], [place], [place], [place]) Address [address] [place] [address] Care Team Providers Care Pewter Finisher Name Role Phone Manuel Bingham MD Primary Care Provider + Encounter Details Date Type Department Care Team (Late st Contact Info) Description 02/24/2020 Transcribed Document [facility] [place] Family Medicine [address] [place] [address] ProviderJohn MD [address] [place] [address] Social History Tobacco Use Types [...] - Historical ProviderMD - 02/24/2020 4:19 PM PATIENT FINANCIAL [place] [address] JESSICA SAWYER :1970 Visit Time:02/24/2020 Your Visit [...] symptoms. This may include rest, fluids, and tmzy-zpg-hcldxbc medicines. Follow these instructions at home: Lifestyle [...] safe for you. General instructions ??? Take mzhv-fwx-rgqqhhg and prescription medicines only as told by [...] are not available, use an alcohol-based hand changeover operator. ? Avoid touching your mouth, face, [...] water are not available, use alcohol-based hand changeover operator. ??? Stay away from other members [...] 04/22/2019 Document Revised: 07/13/2019 Document Reviewed: 04/22/2019 Mailbox Patient Education ?? 2020 TheraVid. COVID-19 Convalescent Plasma: Donate To Save Lives [...] Assistance with quitting is available by contacting 8-622-KVEWNOW. This is a free resource providing counseling, support, and referral. Or you may contact your personal physician. [place] Suicide Prevention Lifeline: The National Suicide Prevention [...] was given the opportunity to ask questions. Patient/Putty And Patch Worker Name: Patient/Putty And Patch Worker Signature: Relationship to Patient: Clinician/Hospital Putty And Patch Worker Signature: Please Provide a Telephone Number Where You Can Be Reached: Is it Permissible To Leave a Message? Date: Electronically signed by Sana, [facility] Conversion Winder Helper Cerner at 07/15/2022 8:28 AM CDT documented in this encounter Plan of Treatment Not on file documented as of this encounter Visit Diagnoses Not on filedocumented in this encounter Care Teams Pewter Finisher Relationship Specialty Start Date End Date Manuel Bingham MD [address] [place] [address] PCP - General Family Medicine 07/31/24 documented as of this encounter
--- OUTSIDE RECORDS SUMMARY | 2024-11-24 09:23 | XMS_ITS | Encounter Summary ---
Author Organization [employer] ([place], [place], [place], [place]) Address [address] [place] [address] Care Team Providers Care Night Manager Name Role Phone Manuel Bingham MD Primary Care Provider + Encounter Details Date Type Department Care Team (Late st Contact Info) Description 11/30/2019 Transcribed Document [facility] Family Medicine [facility] [place] [address] ProviderJohn MD [address] [place] [address] Social History Tobacco Use Types Packs/Day Years [...] on filedocumented in this encounter Care Teams Night Manager Relationship Specialty Start Date End Date Manuel Bingham MD [address] [place] [address] PCP - General Family Medicine 07/31/24 documented as of this encounter
--- NOTE | 2024-11-24 09:30 | MR_ITS ---
FINAL REPORT TECHNIQUE: Multi plantar and multisequence imaging of the cervical spine was obtained before and after the administration of intravenous contrast. CLINICAL HISTORY: Neck pain after fall, hitting head COMPARISON: 07/25/2022 FINDINGS: There is normal alignment of the cervical vertebral bodies. Vertebral body height is preserved. Bone marrow signal intensity is normal. There is no edema or pathologic marrow replacement. The signal intensity within the substance of the spinal cord is normal. There is no abnormal enhancement of the cord. There is no paraspinal mass or fluid collection. C2-C3: There is no focal disc herniation, central stenosis or neural foraminal narrowing. C3-C4: Annular disc bulge with degenerative endplate changes and facet osteoarthropathy. Mild central canal stenosis, worse compared to prior. Severe right and moderate left neuroforaminal narrowing. C4-C5: Annular disc bulge with degenerative endplate changes and facet osteoarthropathy. No central canal stenosis. Moderate right but no left neuroforaminal narrowing, similar to the prior study. C5-C6: Annular disc bulge with degenerative endplate changes and facet osteoarthropathy. Mild central canal stenosis. Severe right greater than left neuroforaminal narrowing, worse compared to prior. C6-C7: Annular disc bulge with degenerative endplate changes and facet osteoarthropathy. Mild central canal stenosis. Severe right greater than left neuroforaminal narrowing, worse compared to prior. C7-T1: Annular disc bulge with degenerative endplate changes and facet osteoarthropathy. No central canal stenosis. Mild right and severe left neuroforaminal narrowing, unchanged Postcontrast images reveal no pathologic contrast enhancement. IMPRESSION: Multilevel degenerative disc disease, overall progressed compared to the prior study Reviewed, Interpreted and Dictated by Radha Craft MD Transcribed by Hedy Galvan Authenticated and [facility]
[2024-11-24] MEDS: SODIUM CHLORIDE 0.9% 10ML SYR (RAD ONLY) 10 ML IV (10:06)
[2024-11-24] MEDS: GADOTERIDOL INJ 20ML SYRINGE 20 ML IV (10:06)
== END 2024-11-24 23:59 | disposition home or self-care (01) ==
LOC: RAD 09:17
PROVIDERS: PCP Family Medicine; Visit Provider Family Medicine
DX: M50.30 Other cervical disc degeneration, unspecified cervical region (principal); T14.90XA Injury, unspecified, initial encounter; W19.XXXA Unspecified fall, initial encounter
CPT/HCPCS: 72156; A9576

== ENCOUNTER 2024-12-13 09:55 | Outpatient (CLI) | payer MEDICARE, SELFPAY ==
--- NOTE | 2024-12-13 09:57 | XR_ITS ---
FINAL REPORT CLINICAL HISTORY: pain x 1 year COMPARISON: 07/06/2017 FINDINGS: RIGHT HIP Two views of the right hip, including an AP view of the pelvis, demonstrate no acute fracture or dislocation. The joint spaces appear normal. The visualized bony structures are well aligned. No soft tissue abnormality is seen. IMPRESSION: No acute bony abnormality. Reviewed, Interpreted and Dictated by Willow Zavala MD Transcribed by Hedy Galvan Authenticated and [facility]
--- OUTSIDE RECORDS SUMMARY | 2024-12-13 09:59 | XMS_ITS | Encounter Summary ---
Author Organization [employer] ([place], [place], [place], [place]) Address [address] [place] [address] Care Team Providers Care Pairer Inspector Name Role Phone Manuel Bingham MD Primary Care Provider + Encounter Details Date Type Department Care Team (Late st Contact Info) Description 03/24/2019 Transcribed Document [facility] [place] Family Medicine [address] [place] [address] ProviderJohn MD [address] [place] [address] Social History Tobacco Use Types Packs/Day [...] John Frank MD - 03/24/2019 4:56 PM FACILITY SPECIALIST CR Chest 1 Vw Portable Ordered: 03/24/2019 Modified Reason for Exam: chest pain 03/24/2019 15:54 03/24/2019 16:56 (BREANA LUU, ADMINISTRATIVE COORDINATOR-EMR) Reviewed by Provider, No further action required x1 documented in this encounter Plan of Treatment Not on file documented as of this encounter Visit Diagnoses Not on filedocumented in this encounter Care Teams Pairer Inspector Relationship Specialty Start Date End Date Manuel Bingham MD [address] [place] [phone] PCP - General Family Medicine 07/31/24 documented as of this encounter
--- OUTSIDE RECORDS SUMMARY | 2024-12-13 09:59 | XMS_ITS | Encounter Summary ---
Author Organization [employer] ([place], [place], [place], [place]) Address [address] [place] [address] Care Team Providers Care Animation Artist Name Role Phone Manuel Bingham MD Primary Care Provider + Encounter Details Date Type Department Care Team (Late st Contact Info) Description 02/28/2020 Transcribed Document [facility] [place] Family [facility] [place] [address] ProviderJohn MD [address] [place], [place] [id number] Social History Tobacco Use Types Packs/Day Years Used Date Smoking Tobacco: Never Assessed Comments Unknown Sex and Gender Information Value Date Recorded Sex Assigned at Not on file Legal Sex Female 4:40 PM CDT Gender Identity Not on file Sexual Orientation Not on file documented as of this encounter Miscellaneous Notes * Cerner Conversion Note - Historical MD Monika - 02/28/2020 2:04 AM NYLON MENDER Patient: JESSICA SAWYER Age: 49 years Sex: [...] Surgical history: heart cath. Endometrial Ablation. Cholecystectomy; (41264). colonoscopy. d&c. right carpal tunnel and right [...] EST Height Source Measured Height Entry Format [place] Height/Length, GREEK (ft) 4 ft Height/Length GREEK 11 Inch CLINICALHEIGHT 149.86 cm [place] Body Weight 42.87 kg Weight Source, ED Standing scale Weight Entry Format [place] Weight Uruguayan lb 190 lb CLINICALWEIGHT 86.36 kg Body [...] % 24.2 % Lymph # 1.19 K/uL Finney % 4.9 % Finney # 0.24 K/uL Eos % 0.0 % [...] SEX: 1970 / Female MRN / ACC#: [id number] / [id number] ORDERING PHYSICIAN: Ordering Provider, Update EXAM REQUESTED: [id number] CHEST FACILITY: [facility] DATE: [...] No rash, no cyanosis, capillary refill brisk WOUND CARE RN: Awake alert oriented ??4, nonfocal exam Psych: [...] CHI COVID-19 Patient Education Overview and Infographic (Uruguayan) (CUSTOM), Prevent the Spread of COVID-19 if You Are Sick - [facility]. Follow up with: ; [place] Within 2 to 3 days; Follow-up with Patient Resource Human Resource Assistant at [phone] in 2 to 3 days Within 2 [...] on filedocumented in this encounter Care Teams Animation Artist Relationship Specialty Start Date End Date Manuel Bingham MD [address] [place] [address] PCP - General Family Medicine 07/31/24 documented as of this encounter
--- OUTSIDE RECORDS SUMMARY | 2024-12-13 09:59 | XMS_ITS | Encounter Summary ---
Author Organization [employer] ([place], [place], [place], [place]) Address [address] [place] [address] Care Team Providers Care Computer Project Manager Name Role Phone Manuel Bingham MD Primary Care Provider +1 Encounter Details Date Type Department Care Team (Late st Contact Info) Description 05/27/2019 Transcribed Document [facility] [place] Family Medicine [address] [place] [address] ProviderJohn MD [address] [place] [address] Social History Tobacco Use Types Packs/Day Years Used Date Smoking Tobacco: Never Assessed Comments Unknown Sex and Gender Information Value Date Recorded Sex Assigned at Not on file Legal Sex Female 4:40 PM CDT Gender Identity Not on file Sexual Orientation Not on file documented as of this encounter Miscellaneous Notes * Cerner Conversion Note - John ProviderMD - 05/27/2019 8:32 PM SHALLOT PACKER Electronically signed by [facility] Conversion Orchid Transplanter Cerner at 07/15/2022 8:17 AM CDT documented in this encounter Plan of Treatment Not on file documented as of this encounter Visit Diagnoses Not on filedocumented in this encounter Care Teams Computer Project Manager Relationship Specialty Start Date End Date Manuel Bingham MD [address] [place] [address] PCP - General Family Medicine 07/31/24 documented as of this encounter
--- OUTSIDE RECORDS SUMMARY | 2024-12-13 09:59 | XMS_ITS | Encounter Summary ---
Author Organization [employer] ([place], [place], [place], [place]) Address [address] [place] [address] Care Team Providers Care Graduate Nurse Name Role Phone Manuel Bingham MD Primary Care Provider [phone] Encounter Details Date Type Department Care Team (Late st Contact Info) Description 03/24/2019 Transcribed Document [facility] [place] Family Medicine [address] [place] [address] ProviderJohn MD [address] [place] [address] Social History Tobacco Use Types Packs/Day Years Used Date Smoking Tobacco: Never Assessed Comments Unknown Sex and Gender Information Value Date Recorded Sex Assigned at Not on file Legal Sex Female 4:40 PM CDT Gender Identity Not on file Sexual Orientation Not on file documented as of this encounter Miscellaneous Notes * Cerner Conversion Note - Historical ProviderMD - 03/24/2019 4:15 PM STERILE PROCESSING TECHNOLOGIST Pain Assessment Entered On: 03/24/2019 17:06 EST [...] on filedocumented in this encounter Care Teams Graduate Nurse Relationship Specialty Start Date End Date Manuel Bingham MD [address] [place] [address] PCP - General Family Medicine 07/31/24 documented as of this encounter
--- OUTSIDE RECORDS SUMMARY | 2024-12-13 09:59 | XMS_ITS | Encounter Summary ---
Author Organization [employer] ([place], [place], [place], [place]) Address [address] [place] [address] Care Team Providers Care Teaching Specialists Name Role Phone Manuel Bingham MD Primary Care Provider + Encounter Details Date Type Department Care Team (Late st Contact Info) Description 05/27/2019 Transcribed Document [facility] [place] [facility] [place] [address] ProviderJohn MD [address], [place] [id number] Social History Tobacco Use Types Packs/Day Years Used Date Smoking Tobacco: Never Assessed Comments Unknown Sex and Gender Information Value Date Recorded Sex Assigned at Not on file Legal Sex Female 4:40 PM CDT Gender Identity Not on file Sexual Orientation Not on file documented as of this encounter Miscellaneous Notes * Cerner Conversion Note - John ProviderMD - 05/27/2019 6:13 PM CAFETERIA COUNTER ATTENDANT ED Triage Entered On: 05/27/2019 18:35 EST [...] EST DCP GENERIC CODE Tracking Group : [facility] ED [facility] LIS VASQUEZ RN - 05/27/2019 18:33 [...] 05/27/2019 18:35:50 EST) Problems(Active) Anxiety (SNOMED CT :06930951 ) Name of Problem: Anxiety ; Recorder: Pearl Espino RN; Confirmation: Confirmed ; Classification: Medical ; Code: [id number] ; Contributor System: [employer] [place]Chart ; Last Updated: 12/19/2016 10:22 EDT ; Life Cycle Date: 12/22/2015 ; Life Cycle Status: Active ; Vocabulary: SNOMED CT Endometriosis (SNOMED CT :2878181873 ) Name of Problem: Endometriosis ; Recorder: Pearl Espino RN; Confirmation: Confirmed ; Classification: Medical ; Code: [id number] ; Contributor System: PowerChart ; Last Updated: 12/22/2015 6:56 EDT ; Life Cycle Date: 12/22/2015 ; Life Cycle Status: Active ; Vocabulary: SNOMED CT HTN (SNOMED CT :6348854159 ) Name of Problem: HTN ; Recorder: Pearl Espino RN; Confirmation: Confirmed ; Classification: Medical ; Code: [id number] ; Contributor System: [employer] [place]Chart ; Last Updated: 09/30/2016 16:39 EDT ; Life Cycle Date: 12/22/2015 ; Life Cycle Status: Active ; Vocabulary: SNOMED CT S/P hysterectomy (SNOMED CT :029805743 ) Name of Problem: S/P hysterectomy ; Recorder: BELIA VELÁZQUEZ RN; Confirmation: Confirmed ; Classification: Medical ; Code: [id number] ; Contributor System: PowerChart ; Last Updated: [...] PNED ; Probability: 0 ; Diagnosis Code: [id number] ED Height and Weight Height Source : Stated Height Entry Format : [place] Height, Feet : 5 ft(Converted to: 152 cm, 60 Inch) Height, Inches : 0 Inch(Converted to: 0 ft 0 Inch, 0.00 cm) Clinical Height : 152.4 cm Weight Source, ED : Critical estimated dosing weight Weight Entry Format : [place] Weight, Pounds : 193 lb Clinical Dosing Weight : 87.73 kg Body Surface Area (BSA) : 1.84 m2 Body Mass Index : 37.8 kg/m2 (HI) [place]ell Body Weight (IBW) : 45.16 kg LIS VASQUEZ RN - 05/27/2019 18:33 EST documented in this encounter Plan of Treatment Not on file documented as of this encounter Visit Diagnoses Not on filedocumented in this encounter Care Teams Teaching Specialists Relationship Specialty Start Date End Date Manuel Bingham MD [address] [place] [address] PCP - General Family Medicine 07/31/24 documented as of this encounter
--- OUTSIDE RECORDS SUMMARY | 2024-12-13 09:59 | XMS_ITS | Encounter Summary ---
Author Organization [employer] ([place], [place], [place], [place]) Address [address] [place] [address] Care Team Providers Care Tool Keeper Name Role Phone Manuel Bingham MD Primary Care Provider + Encounter Details Date Type Department Care Team (Late st Contact Info) Description 05/27/2019 Transcribed Document [facility] [address] [place] [address] Devyn Gross MD [address] [place] [address] Dept. [place] [address] Social History Tobacco Use Types Packs/Day Years [...] Surgical history: heart cath. Endometrial Ablation. Cholecystectomy; (20470). colonoscopy. d&c. right carpal tunnel and right [...] EST Height Source Stated Height Entry Format [place] Height/Length, AMHARIC (ft) 5 ft Height/Length AMHARIC 0 Inch CLINICALHEIGHT 152.4 cm [place] Body Weight 45.16 kg Weight Source, ED Critical estimated dosing weight Weight Entry Format Owen Weight Argentine lb 193 lb CLINICALWEIGHT 87.73 kg Body [...] treatment plan, Patient indicated understanding of instructions. Electronically signed by Floyd Hood Conversion Continuous Process Tanner Rotary Drum Cerner at 07/15/2022 8:02 AM CDT documented in this encounter Plan of Treatment Not on file documented as of this encounter Visit Diagnoses Not on filedocumented in this encounter Care Teams Tool Keeper Relationship Specialty Start Date End Date Manuel Bingham MD [address] [place] [address] PCP - General Family Medicine 07/31/24 documented as of this encounter
--- OUTSIDE RECORDS SUMMARY | 2024-12-13 09:59 | XMS_ITS | Encounter Summary ---
Author Organization [employer] ([place], [place], [place], [place]) Address [address] [place] [address] Care Team Providers Care Copier And Printer Field Technician Name Role Phone Manuel Bingham MD Primary Care Provider + Encounter Details Date Type Department Care Team (Late st Contact Info) Description 05/27/2019 Transcribed Document [facility] [place] Family Medicine [address] [place] [address] ProviderJohn MD [address] [place] [address] Social History Tobacco Use Types Packs/Day Years Used Date Smoking Tobacco: Never Assessed Comments Unknown Sex and Gender Information Value Date Recorded Sex Assigned at Not on file Legal Sex Female 4:40 PM CDT Gender Identity Not on file Sexual Orientation Not on file documented as of this encounter Miscellaneous Notes * Cerner Conversion Note - Historical ProviderMD - 05/27/2019 6:13 PM ELECTRONICS PROCESSOR ED Assessment Entered On: 05/27/2019 19:43 EST [...] Communication Barrier : None Primary Language : Trinidadian Any Spiritual/Cultural Needs or Requests : No [...] - 05/27/2019 19:43 EST Electronically signed by [facility], [facility] Conversion Employee Counselor Cerner at 07/15/2022 8:16 AM CDT documented in this encounter Plan of Treatment Not on file documented as of this encounter Visit Diagnoses Not on filedocumented in this encounter Care Teams Copier And Printer Field Technician Relationship Specialty Start Date End Date Manuel Bingham MD [address] [place] [address] PCP - General Family Medicine 07/31/24 documented as of this encounter
--- OUTSIDE RECORDS SUMMARY | 2024-12-13 09:59 | XMS_ITS | Encounter Summary ---
Author Organization [employer] ([place], [place], [place], [place]) Address [address] [place] [address] Care Team Providers Care Face Hardener Name Role Phone Manuel Bingham MD Primary Care Provider + Encounter Details Date Type Department Care Team (Late st Contact Info) Description 05/27/2019 Transcribed Document [facility] [place] Family Medicine [address] [place] [address] ProviderJohn MD [address] [place] [address] Social History Tobacco Use Types Packs/Day Years Used Date Smoking Tobacco: Never Assessed Comments Unknown Sex and Gender Information Value Date Recorded Sex Assigned at Not on file Legal Sex Female 4:40 PM CDT Gender Identity Not on file Sexual Orientation Not on file documented as of this encounter Miscellaneous Notes * Cerner Conversion Note - John ProviderMD - 05/27/2019 9:29 PM ANTISUBMARINE WEAPONS OFFICER ED Discharge Entered On: 05/27/2019 21:29 [...] 21:29 EST Electronically signed by Sana, [facility] Conversion Park Interpretive Specialist Cerner at 07/15/2022 8:13 AM CDT documented in this encounter Plan of Treatment Not on file documented as of this encounter Visit Diagnoses Not on filedocumented in this encounter Care Teams Face Hardener Relationship Specialty Start Date End Date Manuel Bingham MD [address] [place] [address] PCP - General Family Medicine 07/31/24 documented as of this encounter
--- OUTSIDE RECORDS SUMMARY | 2024-12-13 09:59 | XMS_ITS | Encounter Summary ---
Author Organization [employer] ([place], [place], [place], [place]) Address [address] [place] [address] Care Team Providers Care Demonstrator Knitting Name Role Phone Manuel Bingham MD Primary Care Provider + Encounter Details Date Type Department Care Team (Late st Contact Info) Description 02/28/2020 Transcribed Document [facility] [place] Family Medicine [address] [place] [address] ProviderJohn MD [address] [place] [address] Social History Tobacco Use Types [...] John Frank MD - 02/28/2020 5:51 [place] [address] JESSICA SAWYER :1970 Visit Time:02/27/2020 Your Visit [...] Follow Up with Follow-up with Patient Resource Cooker Pie Filling at [phone] in 2 to 3 days When Within [...] range between ( 1.0 and 7.0 ) Yuba #: 0.24 K/uL -- Normal range between ( 0.24 and 0.82 ) Eos #: 0.00 K/uL -- Normal range between ( 0.04 and 0.54 ) Yuba %: 4.9 % -- Normal range between [...] if you have questions about pets: https://www.cdc.gov/coronavirus/2019- ncov/faq.html#VGRLK46mtsxzfp Monitor your symptoms. ??? Common symptoms of [...] and need to call 911, notify the batch plant operator that you have or think you [...] clean your hands with an alcohol-based hand shuttle spotter that contains at least 60% alcohol. Clean your hands often. ??? Wash your handsoften with soap and water for at least 20 seconds. This is especially important after blowing your nose, coughing, or sneezing; going to the bathroom; and before eating or preparing food. ??? Use hand shuttle spotter if soap and water are not available. Use an alcohol-based hand shuttle spotter with at least 60% alcohol, covering all [...] and water or put them in the airborne weapons technical manager. Clean all high-touch surfaces everyday. ??? Clean [...] body fluids on them. ??? Use household school bus inspector and disinfectants. Clean the area or item [...] 07/13/2019 Document Revised: 07/16/2019 Document Reviewed: 07/13/2019 Headroom Patient Education ?? 2020 [employer]. COVID-19: How to Protect Yourself and Others Know how it spreads ??? There is currently no vaccine to prevent coronavirus disease 2019 (COVID-19). ??? The best way to prevent illness is to avoid being exposed to this virus. ??? The virus is thought to spread mainly from rndaaq-je-ncfrxs. ? Between people who are in close [...] are not readily available, use a hand shuttle spotter that contains at least 60% alcohol. Cover [...] are at higher risk of getting very sick.https://www.cdc.gov/coronavirus/2019-ncov/hlmc-ilqac-avzbwhrjrly/people-a i-qlqzcc-izlk.html Cover your mouth and nose with a cloth face cover when around others ??? You could spread COVID-19 to others even if you do not feel sick. ??? Everyone should wear a cloth face cover when they have to go out in public, for example to the grocery store or to picking tech other necessities. ? Cloth face coverings should [...] available, clean your hands with a hand shuttle spotter that contains at least 60% alcohol. Clean and disinfect ??? Clean AND disinfect frequently touched surfaces daily. This includes tables, doorknobs, light switches, countertops, handles, desks, phones, keyboards, toilets, faucets, and sinks. https://www.cdc.gov/coronavirus/2019-ncov/vkgzuub-roqmlig-larc/disinfecting-yo ur-home.html ??? If surfaces are dirty, clean them: Use detergent or soap and water prior to disinfection. cdc.gov/coronavirus 07/10/2019 This information is not intended to replace advice given to you by your health care provider. Make sure you discuss any questions you have with your health care provider. Document Released: 07/13/2019 Document Revised: 07/16/2019 Document Reviewed: 07/13/2019 Elsevier Patient Education ?? 2020 BrightScope. COVID-19 Frequently Asked Questions COVID-19 (coronavirus disease) is an infection that is caused by a large family of viruses. Some viruses cause illness in people and others cause illness in animals like camels, cats, and bats. In some cases, the viruses that cause illness in animals can spread to humans. Where did the coronavirus come from? In February 2019, [place] told the World Health Organization (WHO) of several cases of lung disease (human respiratory illness). These cases were linked to an open seafood and livestock market in the city of [facility]. The link to the seafood and [...] and virus naming World Health Organization (WHO): www.who.int/emergencies/diseases/oqylg-kredtbytvqo-1979/technical-guidance/nam cji-ftk-bicuwzzqdqi-disease-(covid-2019)-mik-xyd-qqczm-cpcg-wtkpyt-ez Who is at risk for complications from [...] relieve his or her symptoms by using pxgl-ysg-awtnwnp medicines that treat sneezing, coughing, and runny [...] water are not available, use alcohol-based hand shuttle spotter. ??? Avoid touching your face, mouth, nose, [...] (CDC): www.cdc.gov/coronavirus/2019-ncov/travelers/index.html ??? World Health Organization (WHO): www.who.int/emergencies/diseases/lpnqu-skpqyrjyqsc-9053/travel-advice Know the risks and take action to [...] water are not available, use alcohol-based hand shuttle spotter. ??? Cough or sneeze into a tissue, [...] in hot, soapy water or use a airborne weapons technical manager. Air-dry your dishes. ??? Wash laundry in [...] Organization (WHO) ??? Information and news updates: www.who.int/emergencies/diseases/asofh-gyyytjkwezp-7376 ??? Coronavirus health topic: www.who.int/health-topics/coronavirus ??? Questions and answers on COVID-19: www.who.int/news-room/q-a-detail/a-g-rhsgyxpmzmkze ??? Global tracker: who.RxAnte [place] Academy of Pediatrics (AAP) ??? Information for families: www.healthychildren.org/[place] Citizen/health-issues/conditions/chest-lungs/Pages/201 0-Lmsmj-Ytmxdvxzyta.aspx The coronavirus situation is changing rapidly. Check [...] 07/13/2019 Document Revised: 07/13/2019 Document Reviewed: 07/13/2019 Headroom Patient Education ?? 2020 Headroom Inc. Emergency Awareness and Preventative Care STROKE [...] Assistance with quitting is available by contacting 5-728-MZPQNOW. This is a free resource providing counseling, support, and referral. Or you may contact your personal physician. [place] Suicide Prevention Lifeline: The National Suicide Prevention [...] was given the opportunity to ask questions. Patient/Noteman Name: Patient/Noteman Signature: Relationship to Patient: Clinician/Hospital Noteman Signature: Please Provide a Telephone Number Where You Can Be Reached: Is it Permissible To Leave a Message? Date: Electronically signed by Interface, [facility] Conversion Lock Setter Cerner at 07/15/2022 8:27 AM CDT documented in this encounter Plan of Treatment Not on file documented as of this encounter Visit Diagnoses Not on filedocumented in this encounter Care Teams Demonstrator Knitting Relationship Specialty Start Date End Date Manuel Bingham MD [address] [place] [address] PCP - General Family Medicine 07/31/24 documented as of this encounter
--- OUTSIDE RECORDS SUMMARY | 2024-12-13 09:59 | XMS_ITS | Encounter Summary ---
Author Organization [employer] ([place], [place], [place], [place]) Address [address] [place] [address] Care Team Providers Care Interviewing Clerk Name Role Phone Manuel Bingham MD Primary Care Provider [phone] Encounter Details Date Type Department Care Team (Late st Contact Info) Description 03/24/2019 Transcribed Document [facility] [place] Family Medicine [address] [place] [address] ProviderJohn MD [address] [place] [address] Social History Tobacco Use Types Packs/Day Years Used Date Smoking Tobacco: Never Assessed Comments Unknown Sex and Gender Information Value Date Recorded Sex Assigned at Not on file Legal Sex Female 4:40 PM CDT Gender Identity Not on file Sexual Orientation Not on file documented as of this encounter Miscellaneous Notes * Cerner Conversion Note - John ProviderMD - 03/24/2019 5:07 PM ASSEMBLY MACHINE OFFBEARER ED Discharge Entered On: 03/24/2019 17:07 EST [...] 03/24/2019 17:07 EST Electronically signed by Sana, [facility] Conversion Rocket Scientist Cerner at 07/15/2022 8:22 AM CDT documented in this encounter Plan of Treatment Not on file documented as of this encounter Visit Diagnoses Not on filedocumented in this encounter Care Teams Interviewing Clerk Relationship Specialty Start Date End Date Manuel Bingham MD [address] [place] [address] PCP - General Family Medicine 07/31/24 documented as of this encounter
--- OUTSIDE RECORDS SUMMARY | 2024-12-13 09:59 | XMS_ITS | Encounter Summary ---
Author Organization [employer] ([place], [place], [place], [place]) Address [address] [place] [address] Care Team Providers Care Bridge/Structure Inspection Team Leader Name Role Phone Manuel Bingham MD Primary Care Provider + Encounter Details Date Type Department Care Team (Late st Contact Info) Description 05/27/2019 Transcribed Document [facility] [place] [address] [place] [address] ProviderJohn MD [address] [place] [address] Social History Tobacco Use Types [...] - John ProviderMD - 05/27/2019 9:29 PM STRETCHER [place] [address] JESSICA SAWYER :1970 Visit Time:05/27/2019 Your Visit [...] these instructions at home: Medicines ??? Take xdnx-ufl-foyrlxa and prescription medicines only as told by [...] 03/14/2001 Document Revised: 11/13/2016 Document Reviewed: 07/10/2015 Xcalar Interactive Patient Education ?? 2019 Nu[employer] Technologies. Pharyngitis Pharyngitis is redness, pain, and swelling [...] Follow these instructions at home: ??? Take qyvk-bfl-dpacwyd and prescription medicines only as told by [...] 03/17/2006 Document Revised: 04/22/2017 Document Reviewed: 04/22/2017 Xcalar Interactive Patient Education ?? 2019 Xcalar Inc. Emergency Awareness and Preventative Care STROKE [...] Assistance with quitting is available by contacting 3-114-VZIRNOW. This is a free resource providing counseling, [...] was given the opportunity to ask questions. Patient/Basketball Commentator Name: Patient/Basketball Commentator Signature: Relationship to Patient: Clinician/Hospital Basketball Commentator Signature: Please Provide a Telephone Number Where You Can Be Reached: Is it Permissible To Leave a Message? Date: Electronically signed by Sana, [facility] Conversion Lab Coordinator Cerner at 07/15/2022 8:17 AM CDT documented in this encounter Plan of Treatment Not on file documented as of this encounter Visit Diagnoses Not on filedocumented in this encounter Care Teams Bridge/Structure Inspection Team Leader Relationship Specialty Start Date End Date Manuel Bingham MD [address] [place] [address] PCP - General Family Medicine 07/31/24 documented as of this encounter
--- OUTSIDE RECORDS SUMMARY | 2024-12-13 09:59 | XMS_ITS | Encounter Summary ---
Author Organization [employer] ([place], [place], [place], [place]) Address [address] [place] [address] Care Team Providers Care Staff Radiologist Name Role Phone Manuel Bingham MD Primary Care Provider + Encounter Details Date Type Department Care Team (Late st Contact Info) Description 05/27/2019 Transcribed Document [facility] [place] [address] [place] [address] ProviderJohn MD [address] [place] [address] Social History Tobacco Use Types Packs/Day Years Used Date Smoking Tobacco: Never Assessed Comments Unknown Sex and Gender Information Value Date Recorded Sex Assigned at Not on file Legal Sex Female 4:40 PM CDT Gender Identity Not on file Sexual Orientation Not on file documented as of this encounter Miscellaneous Notes * Cerner Conversion Note - Historical ProviderMD - 05/27/2019 6:13 PM SEWING MACHINE OPERATOR PAPER BAGS [place] Suicide Severity Rating Scale (C-SSRS) Entered On: 05/27/2019 19:40 EST Performed On: 05/27/2019 19:40 EST by JUDIE CELIS RN [place] Suicide Severity Rating Scale (C-SSRS) CSSRS Past Month Wish to be : No CSSRS Past Month Suicidal Thoughts : No CSSRS Lifetime Suicide Behavior : No Suicide Severity Rating Score : 0 Suicide Severity Rating : No Additional Care Required at this time JUDIE CELIS RN - 05/27/2019 19:40 EST Electronically signed by Sana [facility] Conversion Wood Model Builder Cerner at 07/15/2022 8:09 AM CDT documented in this encounter Plan of Treatment Not on file documented as of this encounter Visit Diagnoses Not on filedocumented in this encounter Care Teams Staff Radiologist Relationship Specialty Start Date End Date Manuel Bingham MD [address] [place] [address] PCP - General Family Medicine 07/31/24 documented as of this encounter
--- OUTSIDE RECORDS SUMMARY | 2024-12-13 10:00 | XMS_ITS | Encounter Summary ---
Author Organization [employer] ([place], [place], [place], [place]) Address [address] [place] [address] Care Team Providers Care Interior Wall Assembler Name Role Phone Manuel Bingham MD Primary Care Provider + Encounter Details Date Type Department Care Team (Late st Contact Info) Description 08/31/2018 Transcribed Document [facility] [place] [address] [place] [address] ProviderJohn MD [address] [place] [address] Social History Tobacco Use Types Packs/Day Years [...] Reviewed by Provider, No further action required [id number] Electronically signed by Sana [facility] Conversion Hospitality Workers Cerner at 07/15/2022 8:15 AM CDT documented in this encounter Plan of Treatment Not on file documented as of this encounter Visit Diagnoses Not on filedocumented in this encounter Care Teams Interior Wall Assembler Relationship Specialty Start Date End Date Manuel Bingham MD [address] [place] [address] PCP - General Family Medicine 07/31/24 documented as of this encounter
--- OUTSIDE RECORDS SUMMARY | 2024-12-13 10:00 | XMS_ITS | Encounter Summary ---
Author Organization [employer] ([place], [place], [place], [place]) Address [address] [place] [address] Care Team Providers Care Radio Recorder Name Role Phone Manuel Bingham MD Primary Care Provider + Encounter Details Date Type Department Care Team (Late st Contact Info) Description 02/27/2020 Transcribed Document [facility] [place] [facility] [place] [address] ProviderJohn MD [address], [place] [id number] Social History Tobacco Use Types Packs/Day Years Used Date Smoking Tobacco: Never Assessed Comments Unknown Sex and Gender Information Value Date Recorded Sex Assigned at Not on file Legal Sex Female 4:40 PM CDT Gender Identity Not on file Sexual Orientation Not on file documented as of this encounter Miscellaneous Notes * Cerner Conversion Note - Historical ProviderMD - 02/27/2020 11:12 PM SURG TECH Patient: JESSICA SAWYER Age: 49 years Sex: [...] Surgical history: heart cath. Endometrial Ablation. Cholecystectomy; (80635). colonoscopy. d&c. right carpal tunnel and right [...] % 24.2 % Lymph # 1.19 K/uL Laurel % 4.9 % Laurel # 0.24 K/uL Eos % 0.0 % [...] Amb pulse ox 97%. Electronically signed by [facility], [facility] Conversion Entry Level Recruiter Cerner at 07/15/2022 8:26 AM CDT documented in this encounter Plan of Treatment Not on file documented as of this encounter Visit Diagnoses Not on filedocumented in this encounter Care Teams Radio Recorder Relationship Specialty Start Date End Date Manuel Bingham MD [address] [place] [address] PCP - General Family Medicine 07/31/24 documented as of this encounter
--- OUTSIDE RECORDS SUMMARY | 2024-12-13 10:00 | XMS_ITS | Encounter Summary ---
Author Organization [employer] ([place], [place], [place], [place]) Address [address] [place] [address] Care Team Providers Care Environmental Remediation Consultant Name Role Phone Manuel Bingahm MD Primary Care Provider + Encounter Details Date Type Department Care Team (Late st Contact Info) Description 02/25/2020 Transcribed Document [facility] [place] [address] [place] [address] ProviderJohn MD [address] [place] [address] Social History Tobacco Use Types Packs/Day Years Used Date Smoking Tobacco: Never Assessed Comments Unknown Sex and Gender Information Value Date Recorded Sex Assigned at Not on file Legal Sex Female 4:40 PM CDT Gender Identity Not on file Sexual Orientation Not on file documented as of this encounter Miscellaneous Notes * [employer]ner Conversion Note - Historical ProviderMD - 02/25/2020 9:16 AM CHICKEN TENDER CR Chest 1 Vw Portable Ordered: 02/24/2020 Modified Reason for Exam: cough 02/25/2020 07:43 02/25/2020 09:16 (MITCHEL RAWLS PA) Reviewed by Provider, No further action required x1 documented in this encounter Plan of Treatment Not on file documented as of this encounter Visit Diagnoses Not on filedocumented in this encounter Care Teams Environmental Remediation Consultant Relationship Specialty Start Date End Date Manuel Bingham MD [address] [place] [address] [phone] PCP - General Family Medicine 07/31/24 documented as of this encounter
--- OUTSIDE RECORDS SUMMARY | 2024-12-13 10:00 | XMS_ITS | Encounter Summary ---
Author Organization [employer] ([place], [place], [place], [place]) Address [address] [place] [address] Care Team Providers Care National Sales Consultant Name Role Phone Manuel Bingham MD Primary Care Provider [phone] Encounter Details Date Type Department Care Team (Late st Contact Info) Description 03/24/2019 Transcribed Document [facility] [place] [address] [place] [address] ProviderJohn MD [address] [place] [address] Social History Tobacco Use Types Packs/Day Years Used Date Smoking Tobacco: Never Assessed Comments Unknown Sex and Gender Information Value Date Recorded Sex Assigned at Not on file Legal Sex Female 4:40 PM CDT Gender Identity Not on file Sexual Orientation Not on file documented as of this encounter Miscellaneous Notes * Cerner Conversion Note - John ProviderMD - 03/24/2019 4:23 PM INTRAMURAL DIRECTOR Electronically signed by Sana [facility] Conversion Admissions Manager Rn Cerner at 07/15/2022 8:16 AM CDT documented in this encounter Plan of Treatment Not on file documented as of this encounter Visit Diagnoses Not on filedocumented in this encounter Care Teams National Sales Consultant Relationship Specialty Start Date End Date Manuel Bingham MD [address] [place] [address] PCP - General Family Medicine 07/31/24 documented as of this encounter
--- OUTSIDE RECORDS SUMMARY | 2024-12-13 10:00 | XMS_ITS | Encounter Summary ---
Author Organization [employer] ([place], [place], [place], [place]) Address [address] [place] [address] Care Team Providers Care Firewall Engineer Name Role Phone Manuel Bingham MD Primary Care Provider + Encounter Details Date Type Department Care Team (Late st Contact Info) Description 02/28/2020 Transcribed Document [facility] [place] Family Medicine [address] [place] [address] ProviderJohn MD [address] [place] [address] Social History Tobacco Use Types [...] - Historical ProviderMD - 02/28/2020 2:28 PM HIP HOP DANCER CR Chest 1 Vw Portable Ordered: 02/27/2020 Modified Reason for Exam: SOA 02/28/2020 07:43 02/28/2020 14:28 (BREANA LUU, BERNARDO-EMR) Reviewed by Provider, No further action required 02/28/2020 14:18 (CHESTER BENITEZ) Provider Review Required documented in this encounter Plan of Treatment Not on file documented as of this encounter Visit Diagnoses Not on filedocumented in this encounter Care Teams Firewall Engineer Relationship Specialty Start Date End Date Manuel Bingham MD [address] [place] [address] PCP - General Family Medicine 07/31/24 documented as of this encounter
--- OUTSIDE RECORDS SUMMARY | 2024-12-13 10:00 | XMS_ITS | Encounter Summary ---
Author Organization [employer] ([place], [place], [place], [place]) Address [address] [place] [address] Care Team Providers Care Yard Engineer Name Role Phone Manuel Bingham MD Primary Care Provider + Encounter Details Date Type Department Care Team (Late st Contact Info) Description 08/30/2018 Transcribed Document [facility] [place] Family Medicine [facility] [address] ProviderJohn MD [address] [place] [address] Social History Tobacco Use Types Packs/Day [...] John ProviderMD - 08/30/2018 10:01 [place] [address] JESSICA SAWYER :1970 Visit Time:08/30/2018 Your Visit [...] computer, smartphone, or tablet. Just go to [employer]ment[employer]Digital Perception to get started. Questions? Call . You [...] symptoms worsen hope you feel better! Where: [facility] [address] [facility] (1) Follow Up with NO PRIM DR QUINTERO When Within 2 to 3 days Allergies No Known Medication Allergies Immunizations This Visit No Immunizations Found Medications What How Much When Instructions Next Dose acetaminophen (Tylenol Extra Strength 500 mg oral tablet) 1 Tablet(s) Oral Every 6 Hours as needed for for pain Duration: 5 Day(s) Pickup at [facility] methocarbamol (Robaxin 500 mg oral tablet) 2 Tablet(s) Oral Four Times A Day Duration: 7 Day(s) Pickup at [facility] aspirin (aspirin 81 mg oral tablet) 1 Tablet(s) Oral Every Day bisoprolol (bisoprolol 5 mg oral tablet) 0.5 Tablet(s) Oral Every Day bumetanide (Bumex) Every Day conjugated estrogens (Premarin 0.9 mg oral tablet) 1 Tablet(s) Oral Every Day meloxicam (meloxicam 7.5 mg oral tablet) Oral Every Day meloxicam (meloxicam 7.5 mg oral tablet) 1 Tablet(s) Oral Every Day Duration: 7 Day(s) Pickup at [facility] spironolactone (spironolactone 100 mg oral tablet) 1 Tablet(s) Oral Every Day [facility] [address] [phone] The home medications listed are only as [...] are sitting or lying down. ??? Take fnzv-zbu-wyctljm and prescription medicines only as told by [...] 03/17/2006 Document Revised: 12/04/2016 Document Reviewed: 10/04/2016 [employer] Interactive Patient Education ?? 2019 [employer] Inc. Back Exercises If you have pain [...] 04/19/2011 Document Revised: 10/22/2017 Document Reviewed: 05/11/2015 [employer] Interactive Patient Education ?? 2019 Research Journalist. Emergency Awareness and Preventative Care STROKE is [...] Assistance with quitting is available by contacting 5-621-DLQU-NOW. This is a free resource providing counseling, [...] was given the opportunity to ask questions. Patient/Boat Officer Name: Patient/Boat Officer Signature: Relationship to Patient: Clinician/Hospital Boat Officer Signature: Please Provide a Telephone Number Where You Can Be Reached: Is it Permissible To Leave a Message? Date: documented in this encounter Plan of Treatment Not on file documented as of this encounter Visit Diagnoses Not on filedocumented in this encounter Care Teams Yard Engineer Relationship Specialty Start Date End Date Manuel Bingham MD [address] [place] [address] PCP - General Family Medicine 07/31/24 documented as of this encounter
--- OUTSIDE RECORDS SUMMARY | 2024-12-13 10:00 | XMS_ITS | Encounter Summary ---
Author Organization [employer] ([place], [place], [place], [place]) Address [address] [place] [address] Care Team Providers Care Crime Scene Evidence Technician Name Role Phone Manuel Bingham MD Primary Care Provider + Encounter Details Date Type Department Care Team (Late st Contact Info) Description 07/19/2018 Transcribed Document [facility] [place] Family Medicine [address] [place] [address] ProviderJohn MD [address] [place] [address] Social History Tobacco Use Types Packs/Day Years [...] EDT DCP GENERIC CODE Tracking Group : [facility] Tracking Acuity : 4 - [...] 07/19/2018 19:33:47 EDT) Problems(Active) Anxiety (SNOMED CT :18285794 ) Name of Problem: Anxiety ; Recorder: Pearl Espino Rn; Confirmation: Confirmed ; Classification: Medical ; Code: [id number] ; Contributor System: [employer] ; Last Updated: 12/19/2016 10:22 EDT ; Life Cycle Date: 12/22/2015 ; Life Cycle Status: Active ; Vocabulary: SNOMED CT Endometriosis (SNOMED CT :7411062491 ) Name of Problem: Endometriosis ; Recorder: Pearl Espino Rn; Confirmation: Confirmed ; Classification: Medical ; Code: [id number] ; Contributor System: [employer] ; Last Updated: 12/22/2015 6:56 EDT ; Life Cycle Date: 12/22/2015 ; Life Cycle Status: Active ; Vocabulary: SNOMED CT HTN (SNOMED CT :1932385675 ) Name of Problem: HTN ; Recorder: Pearl Espino Rn; Confirmation: Confirmed ; Classification: Medical ; Code: 5332221469 ; Contributor System: [employer] ; Last Updated: 09/30/2016 16:39 EDT ; Life Cycle Date: 12/22/2015 ; Life Cycle Status: Active ; Vocabulary: SNOMED CT S/P hysterectomy (SNOMED CT :597311401 ) Name of Problem: S/P hysterectomy ; Recorder: BELIA VELÁZQUEZ RN; Confirmation: Confirmed ; Classification: Medical ; Code: [id number] ; Contributor System: [employer] ; Last Updated: 07/19/2018 19:29 EDT ; Life Cycle Date: 07/19/2018 ; Life Cycle Status: Active ; Vocabulary: SNOMED CT Diagnoses(Active) Back pain Date: 07/19/2018 ; Diagnosis Type: Reason For Visit ; Confirmation: Complaint of ; Clinical Dx: Back pain ; Classification: Medical ; Clinical Service: Emergency medicine ; Code: PNED ; Probability: 0 ; Diagnosis Code: [id number] ED Height and Weight Height Source : Measured Height Entry Format : Hazel Height, Feet : 5 ft(Converted to: 152 cm, 60 Inch) Height, Inches : 0 Inch(Converted to: 0 ft 0 Inch, 0.00 cm) Clinical Height : 152.4 cm Weight Source, ED : Standing scale Weight Entry Format : [place] Weight, Pounds : 191 lb Clinical Dosing Weight : 86.82 kg Body Surface Area (BSA) : 1.83 m2 Body Mass Index : 37.4 kg/m2 (HI) [place] Body Weight (IBW) : 45.16 kg BELIA [...] 07/19/2018 19:28 EDT Electronically signed by Sana [facility] Conversion Factory Machine Computer Operator Cerner at 07/15/2022 8:06 AM CDT documented in this encounter Plan of Treatment Not on file documented as of this encounter Visit Diagnoses Not on filedocumented in this encounter Care Teams Crime Scene Evidence Technician Relationship Specialty Start Date End Date Manuel Bingham MD [address] [place] [address] PCP - General Family Medicine 07/31/24 documented as of this encounter
--- OUTSIDE RECORDS SUMMARY | 2024-12-13 10:00 | XMS_ITS | Encounter Summary ---
Author Organization [employer] ([place], [place], [place], [place]) Address [address] [place] [address] Care Team Providers Care Channel Lip Stiffener Insoles Name Role Phone Manuel Bingham MD Primary Care Provider [phone] Encounter Details Date Type Department Care Team (Late st Contact Info) Description 07/19/2018 Transcribed Document [facility] [place] Family Medicine [address] [place] [address] ProviderJohn MD [address] [place] [address] Social History Tobacco Use Types Packs/Day Years [...] Communication Barrier : None Primary Language : Botswanan Any Spiritual/Cultural Needs or Requests : No [...] EDT Electronically signed by Sana [facility] Conversion Psych Coordinator Cerner at 07/15/2022 8:02 AM CDT documented in this encounter Plan of Treatment Not on file documented as of this encounter Visit Diagnoses Not on filedocumented in this encounter Care Teams Channel Lip Stiffener Insoles Relationship Specialty Start Date End Date Manuel Bingham MD [address] [place] [address] PCP - General Family Medicine 07/31/24 documented as of this encounter
--- OUTSIDE RECORDS SUMMARY | 2024-12-13 10:00 | XMS_ITS | Encounter Summary ---
Author Organization [employer] ([place], [place], [place], [place]) Address [address] [place] [address] Care Team Providers Care Rare/Endangered Species Specialist Name Role Phone Manuel Bingham MD Primary Care Provider + Encounter Details Date Type Department Care Team (Late st Contact Info) Description 03/24/2019 Transcribed Document [facility] [place] [address] [place] [address] ProviderJohn MD [address] [place] [address] Social History Tobacco Use Types [...] - John ProviderMD - 03/24/2019 5:07 [place] [address] JESSICA SAWYER :1970 Visit Time:03/24/2019 Your Visit [...] for as needed for pain Pickup at [facility]/pharmacy #[id number] Pharmacy Information [facility]/pharmacy #[id number]: [address], [place] [id number] [phone] The home medications listed are only as [...] range between ( 1.0 and 7.0 ) Taney #: 0.49 K/uL -- Normal range between ( 0.24 and 0.82 ) Eos #: 0.12 K/uL -- Normal range between ( 0.04 and 0.54 ) Taney %: 8.1 % -- Normal range between [...] you start to feel better. ??? Take irip-dwh-ulpoqkv and prescription medicines only as told by [...] 12/25/2005 Document Revised: 12/09/2016 Document Reviewed: 12/09/2016 [employer] Interactive Patient Education ?? 2019 [employer]. Emergency Awareness and Preventative Care STRO[place] is [...] Assistance with quitting is available by contacting 6-922-FMKRNOW. This is a free resource providing counseling, [...] was given the opportunity to ask questions. Patient/Director Of Residential Services Name: Patient/Director Of Residential Services Signature: Relationship to Patient: Clinician/Hospital Director Of Residential Services Signature: Please Provide a Telephone Number Where You Can Be Reached: Is it Permissible To Leave a Message? Date: Electronically signed by Sana [facility] Conversion Steel Rule Die Maker Cerner at 07/15/2022 8:03 AM CDT documented in this encounter Plan of Treatment Not on file documented as of this encounter Visit Diagnoses Not on filedocumented in this encounter Care Teams Rare/Endangered Species Specialist Relationship Specialty Start Date End Date Manuel Bingham MD [address] [place] [address] PCP - General Family Medicine 07/31/24 documented as of this encounter
--- OUTSIDE RECORDS SUMMARY | 2024-12-13 10:00 | XMS_ITS | Encounter Summary ---
Author Organization [employer] ([place], [place], [place], [place]) Address [address] [place] [address] Care Team Providers Care Inspector And Adjuster Golf Club Head Name Role Phone Manuel Bingham MD Primary Care Provider +1 Encounter Details Date Type Department Care Team (Late st Contact Info) Description 02/24/2020 Transcribed Document [facility] [place] Family Medicine [address] [place] [address] ProviderJohn MD [address] [place] [address] Social History Tobacco Use Types Packs/Day Years Used Date Smoking Tobacco: Never Assessed Comments Unknown Sex and Gender Information Value Date Recorded Sex Assigned at Not on file Legal Sex Female 4:40 PM CDT Gender Identity Not on file Sexual Orientation Not on file documented as of this encounter Miscellaneous Notes * Cerner Conversion Note - John ProviderMD - 02/24/2020 4:18 PM CORE INSPECTOR Electronically signed by Snaa [facility] Conversion Proposition Player Cerner at 07/15/2022 8:28 AM CDT documented in this encounter Plan of Treatment Not on file documented as of this encounter Visit Diagnoses Not on filedocumented in this encounter Care Teams Inspector And Adjuster Golf Club Head Relationship Specialty Start Date End Date Manuel Bingham MD [address] [place] [address] PCP - General Family Medicine 07/31/24 documented as of this encounter
--- OUTSIDE RECORDS SUMMARY | 2024-12-13 10:00 | XMS_ITS | Encounter Summary ---
Author Organization [email or web address] ([place], [place], [place], [place]) Address [address] [place] [address] Care Team Providers Care Monotype Caster Name Role Phone Manuel Bingham MD Primary Care Provider +1 Encounter Details Date Type Department Care Team (Late st Contact Info) Description 02/28/2020 Transcribed Document [facility] [place] [address] [place] [address] ProviderJohn MD [address] [place] [address] Social History Tobacco Use Types Packs/Day Years Used Date Smoking Tobacco: Never Assessed Comments Unknown Sex and Gender Information Value Date Recorded Sex Assigned at Not on file Legal Sex Female 4:40 PM CDT Gender Identity Not on file Sexual Orientation Not on file documented as of this encounter Miscellaneous Notes * Cerner Conversion Note - John ProviderMD - 02/28/2020 4:31 AM COAL SCREENER Electronically signed by Sana [facility] Conversion Bail Agent Cerner at 07/15/2022 8:06 AM CDT documented in this encounter Plan of Treatment Not on file documented as of this encounter Visit Diagnoses Not on filedocumented in this encounter Care Teams Monotype Caster Relationship Specialty Start Date End Date Manuel Bingham MD [address] [place] [address] PCP - General Family Medicine 07/31/24 documented as of this encounter
--- OUTSIDE RECORDS SUMMARY | 2024-12-13 10:00 | XMS_ITS | Encounter Summary ---
Author Organization [employer] ([place], [place], [place], [place]) Address [address] [place] [address] Care Team Providers Care Head Butler Name Role Phone Manuel Bingham MD Primary Care Provider + Encounter Details Date Type Department Care Team (Late st Contact Info) Description 07/19/2018 Transcribed Document [facility] [place] Family Medicine [facility] [place] [address] ProviderJohn MD [address] [place] [address] Social History Tobacco Use Types Packs/Day [...] Frank MD - 07/19/2018 9:07 [place] [address] JESSICA SAWYER :1970 Visit Time:07/19/2018 Your Visit Summary Your Care Team Admitting Physician - SAMUEL DONOHUE MD-EMR Attending Physician - SAMUEL DONOHUE MD-EMR Primary Care Physician - GINA EVANGELISTA MD-OBG INGRID, NO DR Referring Physician - INGRID, SELF REFERRED Your Diagnosis Back pain Lumbar back pain Patient Portal Reminder: Be sure to sign up for the [employer] patient portal, which gives you 21/10 access to your medical information ??? including these discharge instructions ??? using your computer, smartphone, or tablet. Just go to [email or web address] to get started. Questions? Call . You [...] REPORT YOUR PAIN IS WORSE Where: [address] [facility] [address] [place] [address] [facility] (1) Follow Up with NO PRIM DR QUINTERO When Within 2 to 3 days Allergies No Known Medication Allergies Immunizations This Visit No Immunizations Found Medications What How Much When Instructions Next Dose New acetaminophen-hydrocodone ([place] 5 mg-325 mg oral tablet) 1 Tablet(s) [...] and flexible. ??? Do notsit, drive, or housing quality standard inspector one place for more than 30 minutes. [...] Assistance with quitting is available by contacting 1-459-WSMBNOW. This is a free resource providing counseling, support, and referral. Or you may contact your personal physician. [place] Suicide Prevention Lifeline: The National Suicide Prevention [...] was given the opportunity to ask questions. Patient/Hot Stamp Operator Name: Patient/Hot Stamp Operator Signature: Relationship to Patient: Clinician/Hospital Hot Stamp Operator Signature: Please Provide a Telephone Number Where You Can Be Reached: Is it Permissible To Leave a Message? Date: Electronically signed by Interface, [facility] Conversion Armored Cable Machine Operator Cerner at 07/15/2022 8:30 AM CDT documented in this encounter Plan of Treatment Not on file documented as of this encounter Visit Diagnoses Not on filedocumented in this encounter Care Teams Head Butler Relationship Specialty Start Date End Date Manuel Bingham MD [address] [place] [address] PCP - General Family Medicine 07/31/24 documented as of this encounter
--- OUTSIDE RECORDS SUMMARY | 2024-12-13 10:00 | XMS_ITS | Encounter Summary ---
Author Organization [employer] ([place], [place], [place], [place]) Address [address] [place] [address] Care Team Providers Care Family Service Assistant Name Role Phone Manuel Bingham MD Primary Care Provider [phone] Encounter Details Date Type Department Care Team (Late st Contact Info) Description 03/24/2019 Transcribed Document [facility] [place] [address] [place] [address] ProviderJohn MD [address] [place], [place] [address] Social History Tobacco Use Types Packs/Day Years Used Date Smoking Tobacco: Never Assessed Comments Unknown Sex and Gender Information Value Date Recorded Sex Assigned at Not on file Legal Sex Female 4:40 PM CDT Gender Identity Not on file Sexual Orientation Not on file documented as of this encounter Miscellaneous Notes * Cerner Conversion Note - Historical ProviderMD - 03/24/2019 2:29 PM MACHINE OPERATOR GENERAL ED Assessment Entered On: 03/24/2019 15:23 EST [...] Communication Barrier : None Primary Language : Bangladeshi Any Spiritual/Cultural Needs or Requests : No [...] Symptoms : None Nail Bed Color : [place] Chest Pain : No LAZARO KHALIL RN-Resource [...] on filedocumented in this encounter Care Teams Family Service Assistant Relationship Specialty Start Date End Date Manuel Bingham MD [address] [place] [address] PCP - General Family Medicine 07/31/24 documented as of this encounter
--- OUTSIDE RECORDS SUMMARY | 2024-12-13 10:00 | XMS_ITS | Encounter Summary ---
Author Organization [employer] ([place], [place], [place], [place]) Address [address] [place] [address] Care Team Providers Care Coordinator Of Genetic Services Name Role Phone Manuel Bingham MD Primary Care Provider + Encounter Details Date Type Department Care Team (Late st Contact Info) Description 02/27/2020 Transcribed Document [facility] [place] [facility] [place] [address] ProviderJohn MD [address] [place] [address] Social History Tobacco Use Types [...] - John ProviderMD - 02/27/2020 9:22 PM CLARIFYING PLANT OPERATOR ED Triage Entered On: 02/27/2020 21:49 EST [...] EST DCP GENERIC CODE Tracking Group : [facility] ED East Tracking Acuity : 3 [...] 02/27/2020 21:50:26 EST) Problems(Active) Anxiety (SNOMED CT :55926885 ) Name of Problem: Anxiety ; Recorder: Pearl Espino RN; Confirmation: Confirmed ; Classification: Medical ; Code: [id number] ; Contributor System: [employer] ; Last Updated: 12/19/2016 10:22 EDT ; Life Cycle Date: 12/22/2015 ; Life Cycle Status: Active ; Vocabulary: SNOMED CT CHF (congestive heart failure) (SNOMED CT :81388742 ) Name of Problem: CHF (congestive heart failure) ; Recorder: RAMILA CHIU; Confirmation: Confirmed ; Classification: Medical ; Code: 67048215 ; Contributor System: Power[employer] ; Last Updated: 02/24/2020 14:48 EST ; Life Cycle Date: 02/24/2020 ; Life Cycle Status: Active ; Vocabulary: SNOMED CT Endometriosis (SNOMED CT :4207075593 ) Name of Problem: Endometriosis ; Recorder: Pearl Espino RN; Confirmation: Confirmed ; Classification: Medical ; Code: 0560186058 ; Contributor System: [employer] ; Last Updated: 12/22/2015 6:56 EDT ; Life Cycle Date: 12/22/2015 ; Life Cycle Status: Active ; Vocabulary: SNOMED CT HTN (SNOMED CT :5934220880 ) Name of Problem: HTN ; Recorder: Pearl Espino RN; Confirmation: Confirmed ; Classification: Medical ; Code: 6450758548 ; Contributor System: Power[employer] ; Last Updated: 09/30/2016 16:39 EDT ; Life Cycle Date: 12/22/2015 ; Life Cycle Status: Active ; Vocabulary: SNOMED CT S/P cholecystectomy (SNOMED CT :5894149630 ) Name of Problem: S/P cholecystectomy ; Recorder: BELIA VELÁZQUEZ RN; Confirmation: Confirmed ; Classification: Medical ; Code: 7050215005 ; Contributor System: PowerChart ; Last Updated: 02/27/2020 21:44 EST ; Life Cycle Date: 02/27/2020 ; Life Cycle Status: Active ; Vocabulary: SNOMED CT S/P hysterectomy (SNOMED CT :418277828 ) Name of Problem: S/P hysterectomy ; Recorder: BELIA VELÁZQUEZ RN; Confirmation: Confirmed ; Classification: Medical ; Code: 261449101 ; Contributor System: PowerChart ; Last Updated: 07/19/2018 19:29 EDT ; Life Cycle Date: 07/19/2018 ; Life Cycle Status: Active ; Vocabulary: SNOMED CT Diagnoses(Active) Cough Date: 02/27/2020 ; Diagnosis Type: Reason For Visit ; Confirmation: Complaint of ; Clinical Dx: Cough ; Classification: Medical ; Clinical Service: Emergency medicine ; Code: PNED ; Probability: 0 ; Diagnosis Code: [id number] Fever Date: 02/27/2020 ; Diagnosis Type: Reason For Visit ; Confirmation: Complaint of ; Clinical Dx: Fever ; Classification: Medical ; Clinical Service: Emergency medicine ; Code: PNED ; Probability: 0 ; Diagnosis Code: [id number] ED Height and Weight Height Source : Measured Height Entry Format : [place] Height, Feet : 4 ft(Converted to: 122 cm, 48 Inch) Height, Inches : 11 Inch(Converted to: 0 ft 11 Inch, 27.94 cm) Clinical Height : 149.86 cm Weight Source, ED : Standing scale Weight Entry Format : [place] Weight, Pounds : 190 lb Clinical Dosing Weight : 86.36 kg Body Surface Area (BSA) : 1.81 m2 Body Mass Index : 38.5 kg/m2 (HI) [place] Body Weight (IBW) : 42.87 kg BELIA [...] 02/27/2020 21:43 EST Electronically signed by Sana [facility] Conversion Hoop Puncher Cerner at 07/15/2022 8:07 AM CDT documented in this encounter Plan of Treatment Not on file documented as of this encounter Visit Diagnoses Not on filedocumented in this encounter Care Teams Coordinator Of Genetic Services Relationship Specialty Start Date End Date Manuel Bingham MD [address] [place] [address] PCP - General Family Medicine 07/31/24 documented as of this encounter
--- OUTSIDE RECORDS SUMMARY | 2024-12-13 10:00 | XMS_ITS | Clinical Summary ---
Author Organization Healthcare Address [address] [place] [address] Care Team Providers Care Labor Standards Director Name Role Phone Arben Rao MD Primary Care Provider [phone] Adeola Camara MD Unavailable Allergies No known [...] Only [facility] [address] [place] [address] Nicki Moeller 09/14/2024 Orders Only [facility] [address] [place] [address] Nicki Moeller from Last 3 Months Social History Tobacco [...] 2020 [facility]-Zoster Vaccines (1 of 2) 2020 [id number]-[id number] Vaccine ( - season) 2024 [facility]-Influenza Vaccine (#1) 11/29/202403/04, 01/23/2022, 01/05/2021 [facility]-Hepatitis [...] Procedure Name Priority Date/Time Associated Diagnosis Comments [facility] Routine 09/20/2024 10:07 AM EDT from Last 3 Months Results * DME Order (09/20/2024 10:07 AM EDT) [facility] SUP[facility] NAME [employer] [facility] PHONE [facility] DELIVERY STATUS Completed [facility] DELIVERY NOTE [facility] REQUESTED DELIVERY DATE 09/20/2024 [facility] ACTUAL DELIVERY DATE 09/20/2024 [facility] ITEM DESCRIPTION CPAP Machine, Resmed [facility] Comment: Qty: 1 Auto Min Pressure: 6 cm Auto Max Pressure: 16 cm Oxygen Usage: None [facility] ITEM DESCRIPTION PAP Mask, Fit to Comfort, 1 per 3 months [facility] Comment:Qty: 1 [facility] ITEM DESCRIPTION PAP Headgear, 1 per 6 months [facility] Comment:Qty: 1 [facility] ITEM DESCRIPTION PAP Humidifier, Heated [facility] Comment:Qty: 1 [facility] ITEM DESCRIPTION PAP Mask Interface Cushion, Fit to Comfort (A7031- 1 per month/ A7032- 2 per month/ A7033 - 2 per month) [facility] Comment:Qty: 1 [facility] ITEM DESCRIPTION Disposable PAP Filter, 2 per 1 month [facility] Comment:Qty: 1 [facility] ITEM DESCRIPTION Non-Disposable PAP Filter, 1 per 6 months [facility] Comment:Qty: 1 [facility] ITEM DESCRIPTION PAP Machine Tubing, Non-Heated, 1 per 3 months [facility] Comment:Qty: 1 [facility] ITEM DESCRIPTION PAP Monitoring, Per device availability [facility] Comment:Qty: 1 [facility] ITEM DESCRIPTION Humidifier Water Chamber, 1 per 6 months [facility] Comment:Qty: 1 [facility] ITEM DESCRIPTION PAP Chinstrap, 1 per 6 months [facility] Comment:Qty: 1 09/20/2024 10:0 7 AM EDT Rosita Sutton HEADLINER INSTALLER DME ORDERABLES Final R esult [facility] from Last 3 Months Insurance Care Teams Labor Standards Director Relationship Specialty Start Date End Date Arben Rao MD [address] [place] [address] PCP - General 09/04/21 Adeola Camara MD [address] [place] [facility] [address] [place] [address] Surgeon Neurosurgery 09/04/21
--- OUTSIDE RECORDS SUMMARY | 2024-12-13 10:00 | XMS_ITS | Encounter Summary ---
Author Organization [employer] ([place], [place], [place], [place]) Address [address] [place] [address] Care Team Providers Care Keeler Polygraph Operator Name Role Phone Manuel Bingham MD Primary Care Provider + Encounter Details Date Type Department Care Team (Late st Contact Info) Description 02/24/2020 Transcribed Document [facility] [place] [address] [place] [address] ProviderJohn MD [address], [place] [id number] Social History Tobacco Use Types Packs/Day Years Used Date Smoking Tobacco: Never Assessed Comments Unknown Sex and Gender Information Value Date Recorded Sex Assigned at Not on file Legal Sex Female 4:40 PM CDT Gender Identity Not on file Sexual Orientation Not on file documented as of this encounter Miscellaneous Notes * Cerner Conversion Note - Historical ProviderMD - 02/24/2020 2:34 PM RESIDENTIAL TECH Broset Violence Assessment Entered On: 02/24/2020 16:22 EST Performed On: 02/24/2020 16:22 EST by LIS VASQUEZ RN Broset Violence Assessment Broset Violence Checklist of Symptoms : None Broset Violence Symptoms Subtotal : 0 Broset Violence Symptoms Indicator : Low risk (0) LIS VASQUEZ RN - 02/24/2020 16:22 EST Electronically signed by Sana [facility] Conversion Medical Logistics Specialist Cerner at 07/15/2022 8:18 AM CDT documented in this encounter Plan of Treatment Not on file documented as of this encounter Visit Diagnoses Not on filedocumented in this encounter Care Teams Keeler Polygraph Operator Relationship Specialty Start Date End Date Manuel Bingham MD [address] [place] [phone] PCP - General Family Medicine 07/31/24 documented as of this encounter
--- OUTSIDE RECORDS SUMMARY | 2024-12-13 10:00 | XMS_ITS | Encounter Summary ---
Author Organization [employer] ([place], [place], [place], [place]) Address [address] [place] [address] Care Team Providers Care M48/M60 Tank Driver Name Role Phone Manuel Bingham MD Primary Care Provider + Encounter Details Date Type Department Care Team (Late st Contact Info) Description 02/24/2020 Transcribed Document [facility] [place] Family Medicine [facility] [address] ProviderJohn MD [address] [place] [address] Social History Tobacco Use Types Packs/Day Years Used Date Smoking Tobacco: Never Assessed Comments Unknown Sex and Gender Information Value Date Recorded Sex Assigned at Not on file Legal Sex Female 4:40 PM CDT Gender Identity Not on file Sexual Orientation Not on file documented as of this encounter Miscellaneous Notes * Cerner Conversion Note - Historical ProviderMD - 02/24/2020 2:54 PM ESTIMATION MANAGER Patient: JESSICA SAWYER Age: 49 years Sex: Female : 1970 Associated Diagnoses: Clinical diagnosis of COVID-19 Author: PALLAVI LUU, ENVIRONMENTAL SAFETY SPECIALIST-EMR Basic Information Time seen: Date & time [...] since this morning. Denies tylenol or motrin plane captain. Denies soa or chest pain. . [...] Surgical history: heart cath. Endometrial Ablation. Cholecystectomy; (61629). colonoscopy. d&c. right carpal tunnel and right [...] EST Height Source Stated Height Entry Format [place] Height/Length, UZBEK (ft) 5 ft Height/Length UZBEK 4 Inch CLINICALHEIGHT 162.56 cm Holliday Body Weight 54.3 kg Weight Source, ED Critical estimated dosing weight Weight Entry Format [place] Weight Kazakh lb 190 lb CLINICALWEIGHT 86.36 kg Body [...] on filedocumented in this encounter Care Teams M48/M60 Tank Driver Relationship Specialty Start Date End Date Manuel Bingham MD [address] [place] [address] PCP - General Family Medicine 07/31/24 documented as of this encounter
--- OUTSIDE RECORDS SUMMARY | 2024-12-13 10:00 | XMS_ITS | Encounter Summary ---
Author Organization [employer] ([place], [place], [place], [place]) Address [address] [place] [address] Care Team Providers Care Auto Parts Clerk Name Role Phone Manuel Bingham MD Primary Care Provider + Encounter Details Date Type Department Care Team (Late st Contact Info) Description 03/24/2019 Transcribed Document [facility] [place] [address] [place] [address] ProviderJohn MD [address] [place] [address] Social History Tobacco Use Types Packs/Day Years Used Date Smoking Tobacco: Never Assessed Comments Unknown Sex and Gender Information Value Date Recorded Sex Assigned at Not on file Legal Sex Female 4:40 PM CDT Gender Identity Not on file Sexual Orientation Not on file documented as of this encounter Miscellaneous Notes * Cerner Conversion Note - Historical ProviderMD - 03/24/2019 2:29 PM SHOP COOPER [place] Suicide Severity Rating Scale (C-SSRS) Entered On: 03/24/2019 15:23 EST Performed On: 03/24/2019 15:21 EST by LAZARO KHALIL RN-Resource [place] Suicide Severity Rating Scale (C-SSRS) CSSRS Past [...] on filedocumented in this encounter Care Teams Auto Parts Clerk Relationship Specialty Start Date End Date Manuel Bingham MD [address] [place] [address] PCP - General Family Medicine 07/31/24 documented as of this encounter
--- OUTSIDE RECORDS SUMMARY | 2024-12-13 10:00 | XMS_ITS | Encounter Summary ---
Author Organization [employer] ([place], [place], [place], [place]) Address [address] [place] [address] Care Team Providers Care Outsole Skiver Name Role Phone Manuel Bingham MD Primary Care Provider + Encounter Details Date Type Department Care Team (Late st Contact Info) Description 02/24/2020 Transcribed Document [facility] [place] [address] [place] [address] ProviderJohn MD [address] [place] [address] Social History Tobacco Use Types [...] Historical ProviderMD - 02/24/2020 4:19 PM [place] [address] JESSICA SAWYER :1970 Visit Time:02/24/2020 Your Visit [...] symptoms. This may include rest, fluids, and khhg-eyc-efnfezw medicines. Follow these instructions at home: Lifestyle [...] safe for you. General instructions ??? Take zeke-dro-qztctnj and prescription medicines only as told by [...] are not available, use an alcohol-based hand veneer redrier. ? Avoid touching your mouth, face, eyes, [...] water are not available, use alcohol-based hand veneer redrier. ??? Stay away from other members of [...] 04/22/2019 Document Revised: 07/13/2019 Document Reviewed: 04/22/2019 [employer]otype Patient Education ?? 2020 [employer]. COVID-19 Convalescent Plasma: Donate To Save Lives [...] Assistance with quitting is available by contacting 9-177-MPFKNOW. This is a free resource providing counseling, support, and referral. Or you may contact your personal physician. [place] Suicide Prevention Lifeline: The National Suicide Prevention [...] was given the opportunity to ask questions. Patient/Qualitative Field Project Manager Name: Patient/Qualitative Field Project Manager Signature: Relationship to Patient: Clinician/Hospital Qualitative Field Project Manager Signature: Please Provide a Telephone Number Where You Can Be Reached: Is it Permissible To Leave a Message? Date: Electronically signed by Sana, [facility] Conversion Production Quality Analyst Cerner at 07/15/2022 8:28 AM CDT documented in this encounter Plan of Treatment Not on file documented as of this encounter Visit Diagnoses Not on filedocumented in this encounter Care Teams Outsole Skiver Relationship Specialty Start Date End Date Manuel Bingham MD [address] [place] [address] PCP - General Family Medicine 07/31/24 documented as of this encounter
--- OUTSIDE RECORDS SUMMARY | 2024-12-13 10:00 | XMS_ITS | Encounter Summary ---
Author Organization [employer] ([place], [place], [place], [place]) Address [address] [place] [address] Care Team Providers Care Ladies Locker Room Attendant Name Role Phone Manuel Bingham MD Primary Care Provider +1 Encounter Details Date Type Department Care Team (Late st Contact Info) Description 08/30/2018 Transcribed Document [facility] [place] [facility] [address] ProviderJohn MD [address] [place] [address] Social History Tobacco Use Types Packs/Day Years [...] by Sana [facility] Conversion Jazz Musician Cerner at 07/15/2022 8:23 AM CDT documented in this encounter Plan of Treatment Not on file documented as of this encounter Visit Diagnoses Not on filedocumented in this encounter Care Teams Ladies Locker Room Attendant Relationship Specialty Start Date End Date Manuel Bingham MD [address] [place] [address] PCP - General Family Medicine 07/31/24 documented as of this encounter
--- OUTSIDE RECORDS SUMMARY | 2024-12-13 10:00 | XMS_ITS | Encounter Summary ---
Author Organization Healthcare Address [address] [place] [address] Care Team Providers Care Director Of Retail Analytics Name Role Phone Arben Rao MD Primary Care Provider [phone] Adeola Camara MD Unavailable Reason for Referral * Consultation (Routine) - Closed Specialty Diagnoses / Procedures Referred By Contac t Referred To Contact Neurosurgery Diagnoses Abnormal MRI, spine Arben Rao MD [address] [place] [address] Phone: tel: fax: Referral ID Status Reason Start Date Expiration Date V isits Requested Visits Authorized [id number] Closed Specialty Services Required 08/20/2021 02/19/2023 1 1 Encounter Details Date Type Department Care Team (Late st Contact Info) Description 08/20/2021 [facility] [address] [place] [address] Arben Rao MD [address] [phone] Abnormal MRI, spine (Primary Dx) Social History [...] Primary documented in this encounter Care Teams Director Of Retail Analytics Relationship Specialty Start Date End Date Arben Rao MD [address] [place] [address] PCP - General 09/04/21 Adeola Camara MD [address] [facility] [address] [place] [address] Surgeon Neurosurgery 09/04/21 documented as of this encounter
--- OUTSIDE RECORDS SUMMARY | 2024-12-13 10:00 | XMS_ITS | Encounter Summary ---
Author Organization [employer] ([place], [place], [place], [place]) Address [address] [place] [address] Care Team Providers Care Tow Mate Name Role Phone Manuel Bingham MD Primary Care Provider + Encounter Details Date Type Department Care Team (Late st Contact Info) Description 02/27/2020 Transcribed Document [facility] [place] Family Medicine [address] [place] [address] ProviderJohn MD [address] [place] [address] Social History Tobacco Use Types Packs/Day Years Used Date Smoking Tobacco: Never Assessed Comments Unknown Sex and Gender Information Value Date Recorded Sex Assigned at Not on file Legal Sex Female 4:40 PM CDT Gender Identity Not on file Sexual Orientation Not on file documented as of this encounter Miscellaneous Notes * Cerner Conversion Note - Historical ProviderMD - 02/27/2020 9:22 PM FAST FOOD SERVICES MANAGER ED Assessment Entered On: 02/28/2020 2:52 EST Performed On: 02/27/2020 21:30 EST by Raman Peterson, slip tender Quick Look Assessment Level of Consciousness : Alert, Awake Affect/Behavior : Appropriate, Calm, Cooperative Orientation : Oriented x 4 Skin Temperature : Warm Skin Description : Normal for ethnicity Raman Peterson, Rn - 02/28/2020 2:43 EST ED General-Functional Assess Preferred Communication Mode : Verbal Communication Barrier : None Primary Language : Polish Any Spiritual/Cultural Needs or Requests : No [...] Productive Respiratory Pattern Description : Regular Raman Pteerson Rn - 02/28/2020 2:43 EST Gastrointestinal ED [...] 02/28/2020 2:43 EST Electronically signed by Sana [facility] Conversion Draw String Knotter Cerner at 07/15/2022 8:22 AM CDT documented in this encounter Plan of Treatment Not on file documented as of this encounter Visit Diagnoses Not on filedocumented in this encounter Care Teams Tow Mate Relationship Specialty Start Date End Date Manuel Bingham MD [address] [place] [address] PCP - General Family Medicine 07/31/24 documented as of this encounter
--- OUTSIDE RECORDS SUMMARY | 2024-12-13 10:00 | XMS_ITS | Encounter Summary ---
Author Organization [employer] ([place], [place], [place], [place]) Address [address] [place] [address] Care Team Providers Care Postal Mail Carrier Name Role Phone Manuel Bingham MD Primary Care Provider + Encounter Details Date Type Department Care Team (Late st Contact Info) Description 07/19/2018 Transcribed Document [place] Family [facility] [place] [address] ProviderJohn MD [address] [place] [address] Social History Tobacco Use Types Packs/Day Years [...] SHE HAS BEEN HAVING [facility]IN[facility] ON 06/02/2018 IS GETTING WORSE. SHE [...] Surgical history: heart cath. Endometrial Ablation. Cholecystectomy; (32143). colonoscopy. d&c. right carpal tunnel and right [...] Radiology results: Radiology Results (Last 48 hours) [id number] -- 07/19/2018 19:12 CT Spine Lumbar WO [...] 20:56 EDT, Discharge to: Home. Prescriptions: Prescription [facility]: cyclobenzaprine 10 mg oral tablet (Prescribe): 1 Tab, Oral, TID, for 10 Day(s), PRN: as needed for spasm, 30 Tab, 0 Refill(s) [place] 5 mg-325 mg oral tablet (Prescribe): 1 Tab, Oral, TID, for 2 Day(s), PRN: for pain, 6 Tab, 0 Refill(s), Prescription [facility]: Lidoderm 5% topical film (Prescribe): 1 [...] the following educational materials: Back Pain, Adult, Fgtj-ni-Wius, Heat Therapy, Zyks-iw-Tcmh. Limitations: Limited activity. Follow up with: NO PRIM DR QUINTERO Within 2 to 3 days; SHELLY BELLAMY Within 2 to 3 days CALL THIS MD IN THE AM AND REPORT YOUR PAIN IS WORSE . Counseled: Patient, Regarding diagnosis, Regarding diagnostic results, Regarding treatment plan, Regarding prescription, Patient indicated understanding of instructions. Electronically signed by Sana, [facility] Conversion Vp Publisher Development Cerner at 07/15/2022 8:13 AM CDT documented in this encounter Plan of Treatment Not on file documented as of this encounter Visit Diagnoses Not on filedocumented in this encounter Care Teams Postal Mail Carrier Relationship Specialty Start Date End Date Manuel Bingham MD [address] [place] [address] PCP - General Family Medicine 07/31/24 documented as of this encounter
--- OUTSIDE RECORDS SUMMARY | 2024-12-13 10:00 | XMS_ITS | Encounter Summary ---
Author Organization [employer] ([place], [place], [place], [place]) Address [address] [place] [address] Care Team Providers Care Iron Carrier Name Role Phone Manuel Bingham MD Primary Care Provider + Encounter Details Date Type Department Care Team (Late st Contact Info) Description 03/24/2019 Transcribed Document [facility] [place] Family Medicine [address] [place] [address] ProviderJohn MD [address] [place], [place] [address] Social History Tobacco Use Types Packs/Day Years Used Date Smoking Tobacco: Never Assessed Comments Unknown Sex and Gender Information Value Date Recorded Sex Assigned at Not on file Legal Sex Female 4:40 PM CDT Gender Identity Not on file Sexual Orientation Not on file documented as of this encounter Miscellaneous Notes * Cerner Conversion Note - Historical ProviderMD - 03/24/2019 2:29 PM MAPLE PRODUCTS MAKER ED Triage Entered On: 03/24/2019 14:39 EST Performed On: 03/24/2019 14:37 EST by DALE FUENTES RN ED Triage Across the Room Chief Complaint : C/O CP X1 HR EDUCATIONAL PROGRAM ASSISTANT, 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 CP STARTED AT REST, + SOA Triage Date/Time : 03/24/2019 14:37 EST DALE FUENTES RN - 03/24/2019 14:37 EST DCP GENERIC CODE Tracking Acuity : 2 - Emergent Tracking Group : [facility] DALE FUENTES RN - [...] 03/24/2019 14:39:04 EST) Problems(Active) Anxiety (SNOMED CT :76029002 ) Name of Problem: Anxiety ; Recorder: Pearl Espino RN; Confirmation: Confirmed ; Classification: Medical ; Code: 99414311 ; Contributor System: [employer] ; Last Updated: 12/19/2016 10:22 EDT ; Life Cycle Date: 12/22/2015 ; Life Cycle Status: Active ; Vocabulary: SNOMED CT Endometriosis (SNOMED CT :2949276518 ) Name of Problem: Endometriosis ; Recorder: Pearl Espino RN; Confirmation: Confirmed ; Classification: Medical ; Code: 8703416254 ; Contributor System: Power[employer] ; Last Updated: 12/22/2015 6:56 EDT ; Life Cycle Date: 12/22/2015 ; Life Cycle Status: Active ; Vocabulary: SNOMED CT HTN (SNOMED CT :8115558450 ) Name of Problem: HTN ; Recorder: Pearl Espino RN; Confirmation: Confirmed ; Classification: Medical ; Code: 3398898969 ; Contributor System: [employer] ; Last Updated: 09/30/2016 16:39 EDT ; Life Cycle Date: 12/22/2015 ; Life Cycle Status: Active ; Vocabulary: SNOMED CT S/P hysterectomy (SNOMED CT :104776414 ) Name of Problem: S/P hysterectomy ; Recorder: BELIA VELÁZQUEZ RN; Confirmation: Confirmed ; Classification: Medical ; Code: 786650935 ; Contributor System: Power[employer] ; Last Updated: 07/19/2018 19:29 EDT ; Life Cycle Date: 07/19/2018 ; Life Cycle Status: Active ; Vocabulary: SNOMED CT Diagnoses(Active) Chest pain Date: 03/24/2019 ; Diagnosis Type: Reason For Visit ; Confirmation: Complaint of ; Clinical Dx: Chest pain ; Classification: Medical ; Clinical Service: Emergency medicine ; Code: PNED ; Probability: 0 ; Diagnosis Code: [id number] ED Height and Weight Height Source : Stated Height Entry Format : [place] Height, Feet : 5 ft(Converted to: 152 cm, 60 Inch) Height, Inches : 1 Inch(Converted to: 0 ft 1 Inch, 2.54 cm) Clinical Height : 154.94 cm Weight Source, ED : Standing scale Weight Entry Format : [place] Weight, Pounds : 200 lb Clinical Dosing Weight : 90.91 kg Body Surface Area (BSA) : 1.89 m2 Body Mass Index : 37.9 kg/m2 (HI) [place] Body Weight (IBW) : 47.45 kg DALE FUENTES RN - 03/24/2019 14:37 EST Electronically signed by Sana [facility] Conversion Sales Audit Clerk Cerner at 07/15/2022 8:10 AM CDT documented in this encounter Plan of Treatment Not on file documented as of this encounter Visit Diagnoses Not on filedocumented in this encounter Care Teams Iron Carrier Relationship Specialty Start Date End Date Manuel Bingham MD [address] [place] [address] PCP - General Family Medicine 07/31/24 documented as of this encounter
--- OUTSIDE RECORDS SUMMARY | 2024-12-13 10:00 | XMS_ITS | Encounter Summary ---
Author Organization [employer] ([place], [place], [place], [place]) Address [address] [place] [address] Care Team Providers Care Potato Chip Maker Name Role Phone Manuel Bingham MD Primary Care Provider + Encounter Details Date Type Department Care Team (Late st Contact Info) Description 02/27/2020 Transcribed Document [facility] [place] Family Medicine [address] [place] [address] ProviderJohn MD [address] [place], [place] [address] Social History Tobacco Use Types Packs/Day Years Used Date Smoking Tobacco: Never Assessed Comments Unknown Sex and Gender Information Value Date Recorded Sex Assigned at Not on file Legal Sex Female 4:40 PM CDT Gender Identity Not on file Sexual Orientation Not on file documented as of this encounter Miscellaneous Notes * Cerner Conversion Note - Historical ProviderMD - 02/27/2020 10:59 PM SUBSTATION OPERATOR HELPER ED Event Note Entered On: 02/27/2020 23:02 EST Performed On: 02/27/2020 22:59 EST by Umberto Higgins Web Services Architect ED Event Note ED Event Date/Time : [...] was notifed of the results. Umberto Higgins Web Services Architect - 02/27/2020 22:59 EST Electronically signed by Sana [facility] Conversion Brief Writer Cerner at 07/15/2022 8:21 AM CDT documented in this encounter Plan of Treatment Not on file documented as of this encounter Visit Diagnoses Not on filedocumented in this encounter Care Teams Potato Chip Maker Relationship Specialty Start Date End Date Manuel Bingham MD [address] [place] [address] PCP - General Family Medicine 07/31/24 documented as of this encounter
--- OUTSIDE RECORDS SUMMARY | 2024-12-13 10:00 | XMS_ITS | Encounter Summary ---
Author Organization [employer] ([place], [place], [place], [place]) Address [address] [place] [address] Care Team Providers Care Clinical Research Coordinator Name Role Phone Manuel Bingham MD Primary Care Provider + Encounter Details Date Type Department Care Team (Late st Contact Info) Description 02/24/2020 Transcribed Document [facility] [place] [address] [place] [address] ProviderJohn MD [address] [place], [place] [id number] Social History Tobacco Use Types Packs/Day Years Used Date Smoking Tobacco: Never Assessed Comments Unknown Sex and Gender Information Value Date Recorded Sex Assigned at Not on file Legal Sex Female 4:40 PM CDT Gender Identity Not on file Sexual Orientation Not on file documented as of this encounter Miscellaneous Notes * Cerner Conversion Note - Historical ProviderMD - 02/24/2020 2:34 PM ENGINEERING PRODUCTION WORKER ED Triage Entered On: 02/24/2020 14:49 EST Performed On: 02/24/2020 14:47 EST by RAMILA CHIU ED Triage Across the Room Chief Complaint : C/o fever and cough since 2 am Triage Date/Time : 02/24/2020 14:47 EST RAMILA CHIU - 02/24/2020 14:47 EST DCP GENERIC CODE Tracking Acuity : 4 - Non - Urgent Tracking Group : [facility] RAMILA CHIU - 02/24/2020 14:47 [...] 02/24/2020 14:49:24 EST) Problems(Active) Anxiety (SNOMED CT :31552273 ) Name of Problem: Anxiety ; Recorder: Pearl Espino RN; Confirmation: Confirmed ; Classification: Medical ; Code: 99850579 ; Contributor System: [employer] ; Last Updated: 12/19/2016 10:22 EDT ; Life Cycle Date: 12/22/2015 ; Life Cycle Status: Active ; Vocabulary: SNOMED CT CHF (congestive heart failure) (SNOMED CT :13241987 ) Name of Problem: CHF (congestive heart failure) ; Recorder: RAMILA CHIU; Confirmation: Confirmed ; Classification: Medical ; Code: 90246138 ; Contributor System: [employer] ; Last Updated: 02/24/2020 14:48 EST ; Life Cycle Date: 02/24/2020 ; Life Cycle Status: Active ; Vocabulary: SNOMED CT Endometriosis (SNOMED CT :9045415294 ) Name of Problem: Endometriosis ; Recorder: Pearl Espino RN; Confirmation: Confirmed ; Classification: Medical ; Code: 6141080984 ; Contributor System: [employer] ; Last Updated: 12/22/2015 6:56 EDT ; Life Cycle Date: 12/22/2015 ; Life Cycle Status: Active ; Vocabulary: SNOMED CT HTN (SNOMED CT :5289382307 ) Name of Problem: HTN ; Recorder: Pearl Espino RN; Confirmation: Confirmed ; Classification: Medical ; Code: 8875014882 ; Contributor System: [employer] ; Last Updated: 09/30/2016 16:39 EDT ; Life Cycle Date: 12/22/2015 ; Life Cycle Status: Active ; Vocabulary: SNOMED CT S/P hysterectomy (SNOMED CT :149171259 ) Name of Problem: S/P hysterectomy ; Recorder: BELIA VELÁZQUEZ RN; Confirmation: Confirmed ; Classification: Medical ; Code: 210700574 ; Contributor System: [employer] ; Last Updated: 07/19/2018 19:29 EDT ; Life Cycle Date: 07/19/2018 ; Life Cycle Status: Active ; Vocabulary: SNOMED CT Diagnoses(Active) Cough Date: 02/24/2020 ; Diagnosis Type: Reason For Visit ; Confirmation: Complaint of ; Clinical Dx: Cough ; Classification: Medical ; Clinical Service: Emergency medicine ; Code: PNED ; Probability: 0 ; Diagnosis Code: [id number] ED Height and Weight Height Source : Stated Height Entry Format : [place] Height, Feet : 5 ft(Converted to: 152 cm, 60 Inch) Height, Inches : 4 Inch(Converted to: 0 ft 4 Inch, 10.16 cm) Clinical Height : 162.56 cm Weight Source, ED : Critical estimated dosing weight Weight Entry Format : [place] Weight, Pounds : 190 lb Clinical Dosing Weight : 86.36 kg Body Surface Area (BSA) : 1.92 m2 Body Mass Index : 32.7 kg/m2 (HI) [place] Body Weight (IBW) : 54.3 kg RAMILA CHIU 02/24/2020 14:47 EST Electronically signed by Floyd Hood Conversion Cigar Tobacco Processing Supervisor Cerner at 07/15/2022 8:22 AM CDT documented in this encounter Plan of Treatment Not on file documented as of this encounter Visit Diagnoses Not on filedocumented in this encounter Care Teams Clinical Research Coordinator Relationship Specialty Start Date End Date Manuel Bingham MD [address] [place] [address] PCP - General Family Medicine 07/31/24 documented as of this encounter
--- OUTSIDE RECORDS SUMMARY | 2024-12-13 10:00 | XMS_ITS | Encounter Summary ---
Author Organization [employer] ([place], [place], [place], [place]) Address [address] [place] [address] Care Team Providers Care Administration Vice President Name Role Phone Manuel Bingham MD Primary Care Provider + Encounter Details Date Type Department Care Team (Late st Contact Info) Description 02/27/2020 Transcribed Document [facility] [place] Family [place] [address] [place] [address] ProviderJohn MD [address] [place] [address] Social History Tobacco Use Types Packs/Day Years Used Date Smoking Tobacco: Never Assessed Comments Unknown Sex and Gender Information Value Date Recorded Sex Assigned at Not on file Legal Sex Female 4:40 PM CDT Gender Identity Not on file Sexual Orientation Not on file documented as of this encounter Miscellaneous Notes * Cerner Conversion Note - Historical ProviderMD - 02/27/2020 9:22 PM FLIGHT INSPECTOR Broset Violence Assessment Entered On: 02/28/2020 2:53 [...] on filedocumented in this encounter Care Teams Administration Vice President Relationship Specialty Start Date End Date Manuel Bingham MD [address] [place] [address] PCP - General Family Medicine 07/31/24 documented as of this encounter
--- OUTSIDE RECORDS SUMMARY | 2024-12-13 10:00 | XMS_ITS | Encounter Summary ---
Author Organization [employer] ([place], [place], [place], [place]) Address [address] [place] [address] Care Team Providers Care Surveillance Specialist Name Role Phone Manuel Bingham MD Primary Care Provider + Encounter Details Date Type Department Care Team (Late st Contact Info) Description 02/24/2020 Transcribed Document [facility] [place] Family Medicine [address] [place] [address] ProviderJohn MD [address] [place] [address] Social History Tobacco Use Types Packs/Day Years Used Date Smoking Tobacco: Never Assessed Comments Unknown Sex and Gender Information Value Date Recorded Sex Assigned at Not on file Legal Sex Female 4:40 PM CDT Gender Identity Not on file Sexual Orientation Not on file documented as of this encounter Miscellaneous Notes * Cerner Conversion Note - Historical ProviderMD - 02/24/2020 2:34 PM CASEWORKER PROTECTIVE SERVICES [place] Suicide Severity Rating Scale (C-SSRS) Entered On: 02/24/2020 16:22 EST Performed On: 02/24/2020 16:22 EST by LIS VASQUEZ RN [place] Suicide Severity Rating Scale (C-SSRS) CSSRS Past [...] on filedocumented in this encounter Care Teams Surveillance Specialist Relationship Specialty Start Date End Date Manuel Bingham MD [address] [place] [address] PCP - General Family Medicine 07/31/24 documented as of this encounter
--- OUTSIDE RECORDS SUMMARY | 2024-12-13 10:00 | XMS_ITS | Encounter Summary ---
Author Organization [employer] ([place], [place], [place], [place]) Address [address] [place] [address] Care Team Providers Care Concrete Pile Driver Operator Name Role Phone Manuel Bingham MD Primary Care Provider + [phone] Encounter Details Date Type Department Care Team (Late st Contact Info) Description 03/24/2019 Transcribed Document [facility] [place] [address] [place] [address] ProviderJohn MD [address] [place], [place] [address] Social History Tobacco Use Types Packs/Day Years Used Date Smoking Tobacco: Never Assessed Comments Unknown Sex and Gender Information Value Date Recorded Sex Assigned at Not on file Legal Sex Female 4:40 PM CDT Gender Identity Not on file Sexual Orientation Not on file documented as of this encounter Miscellaneous Notes * Cerner Conversion Note - Historical ProviderMD - 03/24/2019 2:47 PM CRM MARKETING ANALYST Patient: JESSICA SAWYER Age: 48 years Sex: Female : 1970 Associated Diagnoses: Chest pain, midsternal Author: PALLAVI LUU, PAPER NOVELTY MAKER-EMR Basic Information Time seen: Date & time 03/24/2019 14:40:00. History source: Patient. Arrival mode: Private vehicle. History limitation: None. 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 [...] Surgical history: heart cath. Endometrial Ablation. Cholecystectomy; (56186). colonoscopy. d&c. right carpal tunnel and right [...] EST Height Source Stated Height Entry Format [place] Height/Length, JAPANESE (ft) 5 ft Height/Length JAPANESE 1 Inch CLINICALHEIGHT 154.94 cm [place] Body Weight 47.45 kg Weight Source, ED Standing scale Weight Entry Format [place] Weight Peruvian lb 200 lb CLINICALWEIGHT 90.91 kg Body [...] Assessment: ED C-SSRS: ED Clinical Reconciliation: ED nurse college: EKG: Saline Lock Insert: Ordered (Dispatched) CBC [...] % 30.3 % Lymph # 1.84 K/uL Haines % 8.1 % Haines # 0.49 K/uL Eos % 2.0 % Eos # 0.12 K/uL Baso % 0.8 % Baso # 0.05 K/uL Slide Review No PT 9.8 Second(s) INR 1.0 , Lab results : Lab Results 03/24/2019 16:29 EST Troponin I Ultra <0.015 ng/mL . Radiology results: Radiology Results (Last 48 hours) [id number] -- 03/24/2019 14:29 CR Chest 1 Vw [...] Condition: Stable. Disposition: Medically cleared. Prescriptions: Prescription Vacuum Technician Pharmacy: naproxen 500 mg oral tablet (Prescribe): [...] filedocumented in this encounter Care Teams Concrete Pile Driver Operator Relationship Specialty Start Date End Date Manuel Bingham MD [address] [place] [address] PCP - General Family Medicine 07/31/24 documented as of this encounter
--- OUTSIDE RECORDS SUMMARY | 2024-12-13 10:00 | XMS_ITS | Encounter Summary ---
Author Organization [employer] ([place], [place], [place], [place]) Address [address] [place] [address] Care Team Providers Care Theatrical Dresser Name Role Phone Manuel Bingham MD Primary Care Provider [phone] Encounter Details Date Type Department Care Team (Late st Contact Info) Description 07/19/2018 Transcribed Document [facility] [place] Family Medicine [address] [place] [address] ProviderJohn MD [address] [place] [address] Social History Tobacco Use Types Packs/Day Years [...] 8:58 PM CDT Electronically signed by Sana [facility] Conversion Market Survey Representative Cerner at 07/15/2022 8:08 AM CDT documented in this encounter Plan of Treatment Not on file documented as of this encounter Visit Diagnoses Not on filedocumented in this encounter Care Teams Theatrical Dresser Relationship Specialty Start Date End Date Manuel Bingham MD [address] [place] [address] PCP - General Family Medicine 07/31/24 documented as of this encounter
--- OUTSIDE RECORDS SUMMARY | 2024-12-13 10:00 | XMS_ITS | Encounter Summary ---
Author Organization [employer] ([place], [place], [place], [place]) Address [address] [place] [address] Care Team Providers Care Wireless Retail Manager Name Role Phone Manuel Bingham MD Primary Care Provider + Encounter Details Date Type Department Care Team (Late st Contact Info) Description 02/24/2020 Transcribed Document [facility] [place] [address] [place] [address] ProviderJohn MD [address] [place] [address] Social History Tobacco Use Types Packs/Day Years Used Date Smoking Tobacco: Never Assessed Comments Unknown Sex and Gender Information Value Date Recorded Sex Assigned at Not on file Legal Sex Female 4:40 PM CDT Gender Identity Not on file Sexual Orientation Not on file documented as of this encounter Miscellaneous Notes * Cerner Conversion Note - John ProviderMD - 02/24/2020 4:21 PM MANAGER STARS ED Discharge Entered On: 02/24/2020 16:22 EST [...] on filedocumented in this encounter Care Teams Wireless Retail Manager Relationship Specialty Start Date End Date Manuel Bingham MD [address] [place] [address] PCP - General Family Medicine 07/31/24 documented as of this encounter
--- OUTSIDE RECORDS SUMMARY | 2024-12-13 10:00 | XMS_ITS | Encounter Summary ---
Author Organization [employer] ([place], [place], [place], [place]) Address [address] [place] [address] Care Team Providers Care Groundwater Monitoring Technician Name Role Phone Manuel Bingham MD Primary Care Provider + Encounter Details Date Type Department Care Team (Late st Contact Info) Description 02/28/2020 Transcribed Document [facility] [place] Family [place] [address] [place] [address] ProviderJohn MD [address] [place] [address] Social History Tobacco Use Types [...] John Frank MD - 02/28/2020 7:19 AM ATHLETIC TRAINER ED Discharge Entered On: 02/28/2020 7:19 EST Performed On: 02/28/2020 7:19 EST by LIS VASQUEZ RN Discharge Process Patient Disposition : Discharge LIS VASQUEZ RN - 02/28/2020 7:19 EST documented in this encounter Plan of Treatment Not on file documented as of this encounter Visit Diagnoses Not on filedocumented in this encounter Care Teams Groundwater Monitoring Technician Relationship Specialty Start Date End Date Manuel Bingham MD [address] [place] [phone] PCP - General Family Medicine 07/31/24 documented as of this encounter
--- OUTSIDE RECORDS SUMMARY | 2024-12-13 10:00 | XMS_ITS | Encounter Summary ---
Author Organization [employer] ([place], [place], [place], [place]) Address [address] [place] [address] Care Team Providers Care Manager Category Name Role Phone Manuel Bingham MD Primary Care Provider +1 Encounter Details Date Type Department Care Team (Late st Contact Info) Description 08/30/2018 Transcribed Document [facility] [place] Family Medicine [facility] [place] [address] ProviderJohn MD [address] [place] [address] Social History Tobacco Use Types Packs/Day Years [...] : [facility] ED East CHERIE LUNA RN - 08/30/2018 [...] 08/30/2018 20:16:40 EDT) Problems(Active) Anxiety (SNOMED CT :28694536 ) Name of Problem: Anxiety ; Recorder: [place] Espino Rn; Confirmation: Confirmed ; Classification: Medical ; Code: [id number] ; Contributor System: ClickN KIDSChart ; Last Updated: 12/19/2016 10:22 EDT ; Life Cycle Date: 12/22/2015 ; Life Cycle Status: Active ; Vocabulary: SNOMED CT Endometriosis (SNOMED CT :7562282686 ) Name of Problem: Endometriosis ; Recorder: [place] Espino Rn; Confirmation: Confirmed ; Classification: Medical ; Code: [id number] ; Contributor System: ClickN KIDSChart ; Last Updated: 12/22/2015 6:56 EDT ; Life Cycle Date: 12/22/2015 ; Life Cycle Status: Active ; Vocabulary: SNOMED CT HTN (SNOMED CT :6421415894 ) Name of Problem: HTN ; Recorder: [place] Espino Rn; Confirmation: Confirmed ; Classification: Medical ; Code: [id number] ; Contributor System: CliqSearch ; Last Updated: 09/30/2016 16:39 EDT ; Life Cycle Date: 12/22/2015 ; Life Cycle Status: Active ; Vocabulary: SNOMED CT S/P hysterectomy (SNOMED CT :044597173 ) Name of Problem: S/P hysterectomy ; Recorder: BELIA VELÁZQUEZ RN; Confirmation: Confirmed ; Classification: Medical ; Code: [id number] ; Contributor System: CliqSearch ; Last Updated: 07/19/2018 19:29 EDT ; Life Cycle Date: 07/19/2018 ; Life Cycle Status: Active ; Vocabulary: SNOMED CT Diagnoses(Active) Fall Date: 08/30/2018 ; Diagnosis Type: Reason For Visit ; Confirmation: Complaint of ; Clinical Dx: Fall ; Classification: Medical ; Clinical Service: Emergency medicine ; Code: PNED ; Probability: 0 ; Diagnosis Code: [id number] ED Height and Weight Height Source : Stated Height Entry Format : [place] Height, Feet : 5 ft(Converted to: 152 cm, 60 Inch) Height, Inches : 0 Inch(Converted to: 0 ft 0 Inch, 0.00 cm) Clinical Height : 152.4 cm Weight Source, ED : Standing scale Weight Entry Format : [place] Weight, Pounds : 190 lb Clinical Dosing Weight : 86.36 kg Body Surface Area (BSA) : 1.83 m2 Body Mass Index : 37.2 kg/m2 (HI) [place] Body Weight (IBW) : 45.16 kg CHERIE [...] signed by Sana, [facility] Conversion Weight Training Instructor Cerner at 07/15/2022 8:13 AM CDT documented in this encounter Plan of Treatment Not on file documented as of this encounter Visit Diagnoses Not on filedocumented in this encounter Care Teams Manager Category Relationship Specialty Start Date End Date Manuel Bingahm MD [address] [place] [address] PCP - General Family Medicine 07/31/24 documented as of this encounter
--- OUTSIDE RECORDS SUMMARY | 2024-12-13 10:00 | XMS_ITS | Encounter Summary ---
Author Organization [employer] ([place], [place], [place], [place]) Address [address] [facility] [place] [address] Care Team Providers Care Eradicator Name Role Phone Manuel Bingham MD Primary Care Provider [phone] Encounter Details Date Type Department Care Team (Late st Contact Info) Description 08/30/2018 Transcribed Document [facility] [place] [facility] [place] [address] ProviderJohn MD [address] [place] [address] Social History Tobacco Use Types Packs/Day Years [...] Surgical history: heart cath. Endometrial Ablation. Cholecystectomy; (17707). colonoscopy. d&c. right carpal tunnel and right [...] EDT Height Source Stated Height Entry Format [place] Height/Length, MEX[place] (ft) 5 ft Height/Length [place] 0 Inch CLINICALHEIGHT 152.4 cm [place] Body Weight 45.16 kg Weight Source, ED Standing scale Weight Entry Format [place] Weight [place] lb 190 lb CLINICALWEIGHT 86.36 kg Body Surface Area (BSA) 1.83 m2 Body Mass Index 37.2 kg/m2 HI . Oxygen Saturation 08/30/2018 20:13 EDT Oxygen Saturation 96 % . General: Alert, no acute distress. [place] coma scale: Total score: Total score: 15. [...] knee left w crutches Splint Location: Applioed by:registered public health nurse Supervised by: Patient is neurovascularly intact status [...] Medical Plan Condition: Improved, Stable. Prescriptions: Prescription Vegetable I Farmworker Pharmacy: meloxicam 7.5 mg oral tablet (Prescribe): [...] given the following educational materials: Back Exercises, Uunb-le-Ksqz, Knee Sprain, Adult. Follow up with: ZOILA [...] on filedocumented in this encounter Care Teams Eradicator Relationship Specialty Start Date End Date Manuel Bingham MD [address] [place] [address] PCP - General Family Medicine 07/31/24 documented as of this encounter
--- OUTSIDE RECORDS SUMMARY | 2024-12-13 10:00 | XMS_ITS | Encounter Summary ---
Author Organization [employer] ([place], [place], [place], [place]) Address [address] [place] [address] Care Team Providers Care Oil Rag Washer Name Role Phone Manuel Bingham MD Primary Care Provider [phone] Encounter Details Date Type Department Care Team (Late st Contact Info) Description 08/30/2018 Transcribed Document [facility] [place] [address] [place] [address] ProviderJohn MD [address] [place] [address] Social History Tobacco Use Types Packs/Day Years [...] 08/30/2018 9:58 PM CDT Electronically signed by [facility] Conversion Personal Care Worker Cerner at 07/15/2022 8:11 AM CDT documented in this encounter Plan of Treatment Not on file documented as of this encounter Visit Diagnoses Not on filedocumented in this encounter Care Teams Oil Rag Washer Relationship Specialty Start Date End Date Manuel Bingham MD [address] [place] [address] PCP - General Family Medicine 07/31/24 documented as of this encounter
--- OUTSIDE RECORDS SUMMARY | 2024-12-13 10:00 | XMS_ITS | Encounter Summary ---
Author Organization [employer] ([place], [place], [place], [place]) Address [address] [place] [address] Care Team Providers Care Cleaning Specialist Name Role Phone Manuel Bingham MD Primary Care Provider + Encounter Details Date Type Department Care Team (Late st Contact Info) Description 02/27/2020 Transcribed Document [facility] [place] Family Medicine [address] [place] [address] ProviderJohn MD [address] [place] [address] Social History Tobacco Use Types Packs/Day Years Used Date Smoking Tobacco: Never Assessed Comments Unknown Sex and Gender Information Value Date Recorded Sex Assigned at Not on file Legal Sex Female 4:40 PM CDT Gender Identity Not on file Sexual Orientation Not on file documented as of this encounter Miscellaneous Notes * [employer]ner Conversion Note - Historical ProviderMD - 02/27/2020 9:22 PM LEVER OPERATOR [place] Suicide Severity Rating Scale (C-SSRS) Entered On: 02/28/2020 2:53 EST Performed On: 02/27/2020 21:30 EST by Raman Peterson, Rn [place] Suicide Severity Rating Scale (C-SSRS) CSSRS Past Month Wish to be : No CSSRS Past Month Suicidal Thoughts : No CSSRS Lifetime Suicide Behavior : No Suicide Severity Rating Score : 0 Suicide Severity Rating : No Additional Care Required at this time Raman Peterson, Rn - 02/28/2020 2:43 EST Electronically signed by Sana [facility] Conversion Furnace Cleaner Cerner at 07/15/2022 8:06 AM CDT documented in this encounter Plan of Treatment Not on file documented as of this encounter Visit Diagnoses Not on filedocumented in this encounter Care Teams Cleaning Specialist Relationship Specialty Start Date End Date Manuel Bingham MD [address] [place] [address] PCP - General Family Medicine 07/31/24 documented as of this encounter
--- OUTSIDE RECORDS SUMMARY | 2024-12-13 10:01 | XMS_ITS | Encounter Summary ---
Author Organization [employer] ([place], [place], [place], [place]) Address [address] [place] [address] Care Team Providers Care Clubhouse Manager Name Role Phone Manuel Bingham MD Primary Care Provider + Encounter Details Date Type Department Care Team (Late st Contact Info) Description 11/29/2019 Transcribed Document [facility] [place] [facility] [place] [address] ProviderJohn MD [address] [place] [address] Social History Tobacco Use Types Packs/Day Years [...] On: 11/30/2019 0:39 EDT by [place]ANKIE CRESPO, FLUID DESIGNER Triage Across the Room Chief Complaint : Pt co Increased SOA with mid chest pain that began this AM. pt is calm alert skinpwd. Triage Date/Time : 11/30/2019 0:39 EDT FRANKIE CRESPO RN - 11/30/2019 0:39 EDT DCP GENERIC CODE Tracking Acuity : 2 - Emergent Tracking Group : [facility] ED East FRANKIE CRESPO RN [...] 11/30/2019 00:41:48 EDT) Problems(Active) Anxiety (SNOMED CT :39876407 ) Name of Problem: Anxiety ; Recorder: [place] Espino RN; Confirmation: Confirmed ; Classification: Medical ; Code: [id number] ; Contributor System: Physician Referral Network (PRN) ; Last Updated: 12/19/2016 10:22 EDT ; Life Cycle Date: 12/22/2015 ; Life Cycle Status: Active ; Vocabulary: SNOMED CT Endometriosis (SNOMED CT :7481904610 ) Name of Problem: Endometriosis ; Recorder: [place] Espino RN; Confirmation: Confirmed ; Classification: Medical ; Code: [id number] ; Contributor System: [employer]otype[employer] ; Last Updated: 12/22/2015 6:56 EDT ; Life Cycle Date: 12/22/2015 ; Life Cycle Status: Active ; Vocabulary: SNOMED CT HTN (SNOMED CT :9424966793 ) Name of Problem: HTN ; Recorder: [place] Espino RN; Confirmation: Confirmed ; Classification: Medical ; Code: [id number] ; Contributor System: Physician Referral Network (PRN) ; Last Updated: 09/30/2016 16:39 EDT ; Life Cycle Date: 12/22/2015 ; Life Cycle Status: Active ; Vocabulary: SNOMED CT S/P hysterectomy (SNOMED CT :729381593 ) Name of Problem: S/P hysterectomy ; Recorder: BELIA VELÁZQUEZ RN; Confirmation: Confirmed ; Classification: Medical ; Code: [id number] ; Contributor System: Physician Referral Network (PRN) ; Last Updated: 07/19/2018 19:29 EDT ; Life Cycle Date: 07/19/2018 ; Life Cycle Status: Active ; Vocabulary: SNOMED CT Diagnoses(Active) Chest pain Date: 11/30/2019 ; Diagnosis Type: Reason For Visit ; Confirmation: Complaint of ; Clinical Dx: Chest pain ; Classification: Medical ; Clinical Service: Emergency medicine ; Code: PNED ; Probability: 0 ; Diagnosis Code: [id number] ED Height and Weight Height Source : Measured Height Entry Format : [place] Height, Feet : 5 ft(Converted to: 152 cm, 60 Inch) Height, Inches : 0 Inch(Converted to: 0 ft 0 Inch, 0.00 cm) Clinical Height : 152.4 cm Weight Source, ED : Standing scale Weight Entry Format : [place] Weight, Pounds : 217 lb Clinical Dosing Weight : 98.64 kg Body Surface Area (BSA) : 1.93 m2 Body Mass Index : 42.5 kg/m2 (>HHI) [place] Body Weight (IBW) : 45.16 kg FRANKIE [...] on filedocumented in this encounter Care Teams Clubhouse Manager Relationship Specialty Start Date End Date Manuel Bingham MD [address] [place] [address] PCP - General Family Medicine 07/31/24 documented as of this encounter
--- OUTSIDE RECORDS SUMMARY | 2024-12-13 10:01 | XMS_ITS | Referral Summary ---
Author Organization [employer] ([place], [place], [place], [place]) Address [address] [place] [address] Care Team Providers Care Toby Maker Name Role Phone Manuel Bingham MD [...] file Insurance [employer] MEDICARE HMO Care Teams Toby Maker Relationship Specialty Start Date End Date Manuel Bingham MD [address] [place] [address] PCP - General Family Medicine 07/31/24
--- OUTSIDE RECORDS SUMMARY | 2024-12-13 10:01 | XMS_ITS | Encounter Summary ---
Author Organization [employer] ([place], [place], [place], [place]) Address [address] [place] [address] Care Team Providers Care Curriculum Facilitator Name Role Phone Manuel Bingham MD Primary Care Provider + Encounter Details Date Type Department Care Team (Late st Contact Info) Description 11/29/2019 Transcribed Document [facility] [place] [facility] [place] [address] ProviderJohn MD [address] [place] [address] Social History Tobacco Use Types Packs/Day Years Used Date Smoking Tobacco: Never Assessed Comments Unknown Sex and Gender Information Value Date Recorded Sex Assigned at Not on file Legal Sex Female 4:40 PM CDT Gender Identity Not on file Sexual Orientation Not on file documented as of this encounter Miscellaneous Notes * Cerner Conversion Note - John ProviderMD - 11/29/2019 11:44 PM CDT [place] Suicide Severity Rating Scale (C-SSRS) Entered On: 11/30/2019 3:11 EDT Performed On: 11/30/2019 1:20 EDT by Sydni Guerra Rn [place] Suicide Severity Rating Scale (C-SSRS) CSSRS Past [...] on filedocumented in this encounter Care Teams Curriculum Facilitator Relationship Specialty Start Date End Date Manuel Bingham MD [address] [place] [address] PCP - General Family Medicine 07/31/24 documented as of this encounter
--- OUTSIDE RECORDS SUMMARY | 2024-12-13 10:01 | XMS_ITS | Encounter Summary ---
Author Organization [employer] ([place], [place], [place], [place]) Address [address] [place] [address] Care Team Providers Care Marketing Ambassador Name Role Phone Manuel Bingham MD Primary Care Provider + 2 Encounter Details Date Type Department Care Team (Late st Contact Info) Description 11/30/2019 Transcribed Document [facility] Radiology [address] [place] [address] Devyn Gross MD [address] [place] [address] Dept[place] [address] Social History Tobacco Use Types [...] 11/30/2019 4:37 AM EDT Electronically signed by [facility] Conversion Capsule Filling Machine Operator Cerner at 07/15/2022 8:13 AM CDT documented in this encounter Plan of Treatment Not on file documented as of this encounter Visit Diagnoses Not on filedocumented in this encounter Care Teams Marketing Ambassador Relationship Specialty Start Date End Date Manuel Bingham MD [address] [place] [phone] PCP - General Family Medicine 07/31/24 documented as of this encounter
--- OUTSIDE RECORDS SUMMARY | 2024-12-13 10:01 | XMS_ITS | Encounter Summary ---
Author Organization [employer] ([place], [place], [place], [place]) Address [address] [place] [address] Care Team Providers Care Library Helper Name Role Phone Manuel Bingham MD Primary Care Provider + Encounter Details Date Type Department Care Team (Late st Contact Info) Description 02/24/[address] [facility] [place] [address] [place] [address] ProviderJohn MD [address] [place], [place] [address] Social History Tobacco Use Types Packs/Day Years Used Date Smoking Tobacco: Never Assessed Comments Unknown Sex and Gender Information Value Date Recorded Sex Assigned at Not on file Legal Sex Female 4:40 PM CDT Gender Identity Not on file Sexual Orientation Not on file documented as of this encounter Miscellaneous Notes * [employer]ner Conversion Note - Historical ProviderMD - 02/24/2020 2:34 PM STEM DRYER MAINTAINER ED Assessment Entered On: 02/24/2020 16:24 EST [...] Communication Barrier : None Primary Language : Qatari Any Spiritual/Cultural Needs or Requests : No [...] on filedocumented in this encounter Care Teams Library Helper Relationship Specialty Start Date End Date Manuel Bingham MD [address] [place] [address] PCP - General Family Medicine 07/31/24 documented as of this encounter
--- OUTSIDE RECORDS SUMMARY | 2024-12-13 10:01 | XMS_ITS | Encounter Summary ---
Author Organization [employer] ([place], [place], [place], [place]) Address [address] [place] [address] Care Team Providers Care Preparation Supervisor Name Role Phone Manuel Bingham MD Primary Care Provider + Encounter Details Date Type Department Care Team (Late st Contact Info) Description 11/29/2019 Transcribed Document [facility] [place] [address] [place] [address] ProviderJohn MD [address] [place] [address] Social History Tobacco Use Types Packs/Day Years Used Date Smoking Tobacco: Never Assessed Comments Unknown Sex and Gender Information Value Date Recorded Sex Assigned at Not on file Legal Sex Female 4:40 PM CDT Gender Identity Not on file Sexual Orientation Not on file documented as of this encounter Miscellaneous Notes * Cerner Conversion Note - Jhon ProviderMD - 11/29/2019 11:44 PM CDT ED Assessment Entered On: 11/30/2019 3:15 EDT Performed On: 11/30/2019 3:11 EDT by Sydni Guerra, colorer Quick Look Assessment Level of Consciousness : Alert, Awake Affect/Behavior : Appropriate, Calm, Cooperative Orientation : Oriented x 4 Skin Temperature : Warm Skin Description : Normal for ethnicity Sydni Guerra Rn - 11/30/2019 3:11 EDT ED General-Functional Assess Information Obtained From : Patient Preferred Communication Mode : Verbal Communication Barrier : None Primary Language : Citizen Of [place] Any Spiritual/Cultural Needs or Requests : No [...] Rhythm : Regular Nail Bed Color : [place] Chest Pain : No Sydni Guerra Rn [...] 11/30/2019 3:11 EDT Electronically signed by Sana [facility] Conversion Quick Sketch Artist Cerner at 07/15/2022 8:09 AM CDT documented in this encounter Plan of Treatment Not on file documented as of this encounter Visit Diagnoses Not on filedocumented in this encounter Care Teams Preparation Supervisor Relationship Specialty Start Date End Date Manuel Bingham MD [address] [place] [address] PCP - General Family Medicine 07/31/24 documented as of this encounter
--- OUTSIDE RECORDS SUMMARY | 2024-12-13 10:01 | XMS_ITS | Encounter Summary ---
Author Organization [employer] ([place], [place], [place], [place]) Address [address] [place] [address] Care Team Providers Care Train Operations Supervisor Name Role Phone Manuel Bingham MD Primary Care Provider + Encounter Details Date Type Department Care Team (Late st Contact Info) Description 11/30/2019 Transcribed Document [facility] [place] Family [place] [facility] [place] [address] ProviderJohn MD [address] [place] [address] Social History Tobacco Use Types Packs/Day Years [...] on filedocumented in this encounter Care Teams Train Operations Supervisor Relationship Specialty Start Date End Date Manuel Bingham MD [address] [place] [address] PCP - General Family Medicine 07/31/24 documented as of this encounter
--- OUTSIDE RECORDS SUMMARY | 2024-12-13 10:01 | XMS_ITS | Clinical Summary ---
[facility] Address [address] [place] [address] Care Team Providers Care Pressure Supervisor Name Role Phone Manuel Bingham MD Primary Care Provider [phone]- [phone] Allergies No known active allergies Medications aspirin [...] Value Date Recorded Sex Assigned at Female 12/09/2024 9:40 AM EDT Legal Sex Female 1:41 PM EDT Gender [...] Description 12/16/2024 9:30 AM EDT Office Visit [facility] PULMONARY & CRITICAL CARE MEDICINE [address] [place] [address] [address] [place] [address] 12/16/2024 10:00 AM EDT Office Visit [facility] PULMONARY & CRITICAL CARE MEDICINE [address] [place] [address] [address] [place] [address] Manjinder Sauceda MD [address] [place] [address] 01/03/2025 11:00 AM EDT Office Visit [facility] OBGYN [address] [place] [address] Shahram Van MD [address] [facility] [[email or web address] [address] [place] [address] Health Maintenance Due Date Last Done Comments [...] C SCREENING 09/16/2022 COVID-19 Vaccine ( - 2024-25 season) 2024 INFLUENZA VACCINE 12/29/2024 01/23/2022, 01/05/2021 Insurance [facility] MEDICARE ADVANTAGE HMO [facility] MEDICARE ADVANTAGE [facility] HMO [place] [employer] MEDICARE A & B Care Teams Pressure Supervisor Relationship Specialty Start Date End Date Manuel Bingham MD [facility] [place] [address] PCP - General 12/09/24
--- OUTSIDE RECORDS SUMMARY | 2024-12-13 10:01 | XMS_ITS | Encounter Summary ---
Author Organization [employer] ([place], [place], [place], [place]) Address [address] [place] [address] Care Team Providers Care Stacker And Sorter Operator Name Role Phone Manuel Bingham MD Primary Care Provider + Encounter Details Date Type Department Care Team (Late st Contact Info) Description 11/30/2019 Transcribed Document [facility] [place] [facility] [place] [address] ProviderJohn MD [address] [place] [id number] Social History Tobacco Use Types Packs/Day [...] x1 Electronically signed by Floyd Hood Conversion Behavioral Health Care Coordinator Cerner at 07/15/2022 8:10 AM CDT documented in this encounter Plan of Treatment Not on file documented as of this encounter Visit Diagnoses Not on filedocumented in this encounter Care Teams Stacker And Sorter Operator Relationship Specialty Start Date End Date Manuel Binghma MD [address] [place] [phone] PCP - General Family Medicine 07/31/24 documented as of this encounter
--- OUTSIDE RECORDS SUMMARY | 2024-12-13 10:01 | XMS_ITS | Encounter Summary ---
Author Organization [employer] ([place], [place], [place], [place]) Address [address] [place] [address] Care Team Providers Care Chain Builder Name Role Phone Manuel Bingham MD Primary Care Provider + Encounter Details Date Type Department Care Team (Late st Contact Info) Description 02/24/2020 Transcribed Document [facility] Family Medicine [facility] [place] [address] ProviderJohn MD [address] [place] [id number] Social History Tobacco Use Types Packs/Day Years Used Date Smoking Tobacco: Never Assessed Comments Unknown Sex and Gender Information Value Date Recorded Sex Assigned at Not on file Legal Sex Female 4:40 PM CDT Gender Identity Not on file Sexual Orientation Not on file documented as of this encounter Miscellaneous Notes * Cerner Conversion Note - Historical ProviderMD - 02/24/2020 4:12 PM THERMOSPRAY OPERATOR Novel Coronavirus 2019 - - Positive 02/24/2020 15:53 02/24/2020 16:12 (MITCHEL RAWLS PA) Reviewed by Provider, No further action required Test resulted while patient in ED. documented in this encounter Plan of Treatment Not on file documented as of this encounter Visit Diagnoses Not on filedocumented in this encounter Care Teams Chain Builder Relationship Specialty Start Date End Date Manuel Bingham MD [address] [place] [address] [phone] PCP - General Family Medicine 07/31/24 documented as of this encounter
--- OUTSIDE RECORDS SUMMARY | 2024-12-13 10:01 | XMS_ITS | Clinical Summary ---
Author Organization [employer] ([place], [place], [place], [place]) Address [address] [place] [address] Care Team Providers Care Lpc Name Role Phone Manuel Bingham MD Primary [...] Shingles Vaccine (Zoster) (1 of 2) 2020 Medicare IPPE (Welcome to Medicare) [id number] 06/29/2024 COVID-19 VACCINE ( season) 2024 Influenza Vaccine (#1) 2024 Pneumococcal 50+ years Completed 03/04/2024 Insurance [facility] MEDICARE HMO Care Teams Lpc Relationship Specialty Start Date End Date Manuel Bingham MD [address] [place] [address] PCP - General Family Medicine 07/31/24
--- OUTSIDE RECORDS SUMMARY | 2024-12-13 10:01 | XMS_ITS | Encounter Summary ---
Author Organization [employer] ([place], [place], [place], [place]) Address [address] [place] [address] Care Team Providers Care Design Tech Name Role Phone Manuel Bingham MD Primary Care Provider + Encounter Details Date Type Department Care Team (Late st Contact Info) Description 11/30/2019 Transcribed Document [facility] Radiology [address] [place] [address] Devyn Roman MD [address] [place] [address] Dept. of Emergency Medicine [place] [id number] Social History Tobacco Use Types Packs/Day Years [...] Surgical history: heart cath. Endometrial Ablation. Cholecystectomy; (79464). colonoscopy. d&c. right carpal tunnel and right [...] medicine, Medical Plan Condition: Stable. Prescriptions: Prescription Heat Treating Furnace Tender Pharmacy: albuterol [facility] free 90 mcg/inh inhalation aerosol with adapter (Prescribe): 2 Puff, Inhalation, QID, 1 Each, 0 Refill(s). Patient was given the following educational materials: Bronchospasm, Adult. Follow up with: TAUKARRIEK ROBBIN Within 2 to 3 days; Follow up with primary care provider Within 2 to 3 days. Electronically signed by Floyd Hood Conversion Hot Air Furnace Installer Repairer Cerner at 07/15/2022 8:27 AM CDT documented in this encounter Plan of Treatment Not on file documented as of this encounter Visit Diagnoses Not on filedocumented in this encounter Care Teams Design Tech Relationship Specialty Start Date End Date Manuel Bingham MD [address] [place] [phone] PCP - General Family Medicine 07/31/24 documented as of this encounter
--- OUTSIDE RECORDS SUMMARY | 2024-12-13 10:01 | XMS_ITS | Encounter Summary ---
Author Organization [employer] ([place], [place], [place], [place]) Address [address] [place] [address] Care Team Providers Care Sequins Spooler Name Role Phone Manuel Bingham MD Primary Care Provider + Encounter Details Date Type Department Care Team (Late st Contact Info) Description 11/30/2019 Transcribed Document [facility] [place] Family Medicine [facility] [address] ProviderJohn MD [address] [place] [address] Social History Tobacco Use Types [...] Frank MD - 11/30/2019 4:00 [place] [address] JESSICA SAWYER :1970 Visit Time:11/29/2019 Your Visit [...] Inhalation Four Times A Day Pickup at [facility]/pharmacy #[id number] aspirin (aspirin 81 mg oral tablet) 1 [...] 1 Tablet(s) Oral Every Day Pharmacy Information [facility]/pharmacy #[id number]: [address] [id number] [phone] The home medications listed are only as [...] range between ( 1.0 and 7.0 ) Boyle #: 0.56 K/uL -- Normal range between ( 0.24 and 0.82 ) Eos #: 0.18 K/uL -- Normal range between ( 0.04 and 0.54 ) Boyle %: 6.6 % -- Normal range between [...] these instructions at home: Medicines ??? Take [id number] and prescription medicines only as told by [...] 03/19/2004 Document Revised: 02/27/2018 Document Reviewed: 03/13/2017 [employer] Patient Education ?? 2020 [employer]. Emergency Awareness and Preventative Care STROKE is [...] Assistance with quitting is available by contacting 3-794-VBKD-NOW. This is a free resource providing counseling, [...] was given the opportunity to ask questions. Patient/Foam Rubber Molder Name: Patient/Foam Rubber Molder Signature: Relationship to Patient: Clinician/Hospital Foam Rubber Molder Signature: Please Provide a Telephone Number Where You Can Be Reached: Is it Permissible To Leave a Message? Date: Electronically signed by Sana, [facility] Conversion Transportation Services Representative Sandeep at 07/15/2022 8:05 AM CDT documented in this encounter Plan of Treatment Not on file documented as of this encounter Visit Diagnoses Not on filedocumented in this encounter Care Teams Sequins Spooler Relationship Specialty Start Date End Date Manuel Bingham MD [address] [place] [address] PCP - General Family Medicine 07/31/24 documented as of this encounter
== END 2024-12-13 23:59 | disposition home or self-care (01) ==
LOC: RAD 09:56
PROVIDERS: PCP Family Medicine; Visit Provider Family Medicine
DX: M25.551 Pain in right hip (principal)
CPT/HCPCS: 73502

== ENCOUNTER 2025-01-25 10:29 | Day surgery (SDC) | payer MEDICARE, MEDICAID, SELFPAY ==
[2025-01-25 10:45] VITALS: BP 110/67; PULSE 78; RESP 16; O2SAT 98; BMI 44.6
[2025-01-25] MEDS: LIDOCAINE 1% 5ML PF VIAL 5 ML (11:02)
[2025-01-25] MEDS: BUPIVACAINE 0.25% 10ML INJ 25 MG IJ (11:02)
[2025-01-25 11:06] VITALS: BP 121/64; PULSE 68; RESP 18; O2SAT 96
[2025-01-25 11:12] VITALS: BP 144/78; PULSE 88; RESP 18; O2SAT 95
[2025-01-25 11:13] VITALS: BP 144/78; PULSE 88; RESP 18; O2SAT 95
--- NOTE | 2025-01-25 11:16 | EXP.PAIN.PRO ---
Procedure Date: 01/25/25 Time: 10:40 Anesthesiologist:: Estuardo Segura CRNA Complications:: None Pre-procedure Diagnosis:: Right sacroiliitis Post-procedure Diagnosis:: Same Indications for Procedure:: Patient is a very pleasant 54-year-old female who comes to clinic today for right sacroiliac joint injection of local anesthetic. Patient describes right low lumbar back pain as well as right posterior hip pain is constant, dull, aching. She is having difficulty transitioning from sitting to standing. Difficulty with ambulation due to right posterior hip pain. She rates her pain 7/10. Procedure Details:: Procedure: Right sacroliliac joint injection under fluoroscopy Informed consent was obtained and the risk and benefits of the procedure were explained to the patient.~ The patient was taken to the procedure room and noninvasive monitors were placed including noninvasive blood pressure cuff and pulse oximeter.~ The patient was placed prone on the procedure table.~ The~ right hip was cleansed using Betadine as a cleansing solution.~ C-arm fluorosocpy was used to view the right SI joint.~ The skin and subcutaneous tissues were anesthetized using Lidocaine 1.5% and a 25-gauge needle.~ After this, a 22-gauge spinal needle was inserted under fluoroscopic guidance into the inferior aspect of the right SI joint.~ Omnipaque dye was injected and a good spread was seen throughout the joint.~ After this, approximately 5 mL of bupivacaine 0.25% was incrementally injected into the sacroiliac joint.~ The patient tolerated the procedure well with no complications.~ The patient was observed in the Pain Clinic, then discharged home neurologically intact.~ Plan and Disposition:: Patient was discharged without incident.
== END 2025-01-25 11:06 | disposition home or self-care (01) ==
LOC: SC.PAINP 10:30
PROVIDERS: PCP Family Medicine; Visit Provider Nurse Anesthetist, Certified Registered
DX: M46.1 Sacroiliitis, not elsewhere classified (principal); I25.118 Atherosclerotic heart disease of native coronary artery with other forms of angina pectoris; J44.89 Other specified chronic obstructive pulmonary disease; E11.69 Type 2 diabetes mellitus with other specified complication; F32.A Depression, unspecified; I11.9 Hypertensive heart disease without heart failure; E78.5 Hyperlipidemia, unspecified; E66.9 Obesity, unspecified; Z68.41 Body mass index [BMI] 40.0-44.9, adult; Z79.51 Long term (current) use of inhaled steroids; Z79.85 Long-term (current) use of injectable non-insulin antidiabetic drugs; Z79.891 Long term (current) use of opiate analgesic; Z79.899 Other long term (current) drug therapy
CPT/HCPCS: G0260; J0665; J2003